=== PATIENT | male | born 1945 | race Two or more races ===

== ENCOUNTER 2019-02-11 04:10 | Emergency (ER) | payer OTHER ==
[~2019-02-11] VITALS: Ht 162.6 cm; Wt 78.0 kg
[2019-02-11 06:02] LABS: Basophils # (auto) 0.1 uL; Eosinophils # (auto) 0.2 uL; Eosinophils % (auto) 2.3 % (0.0-7.0); Hemoglobin 13.8 g/dL (13.5-17.5); Lymphocytes % (auto) 18.8 % (10.0-50.0); Mean Corpuscular Hemoglobin 31.5 pg (28.0-32.0); Mean Corpuscular Hgb Conc. 34.5 g/dL (32.0-36.0); Mean Corpuscular Volume 91.3 fL (80.0-100.0); Monocytes # (auto) 0.7 uL; Monocytes % (auto) 6.3 % (0.0-12.0); Neutrophils # (auto) 7.5 uL; Neutrophils % (auto) 71.6 % (37.0-80.0); Nucleated Red Blood Cells % 0.1 %; Platelet Count (auto) 272 10^3/uL (140-450); Red Blood Cells 4.38 10^6/uL (4.5-5.90); Red Cell Distribution Width 13.1 % (11.8-14.3); White Blood Cell 10.5 10^3/uL (4.4-10.8)
[2019-02-11 06:16] LABS: INR 0.95 (0.9-1.15); Partial Thromboplastin Time 28.1 sec (23.64-32.05)
[2019-02-11 08:17] LABS: BUN/Creatinine Ratio 22.4
[2019-02-11 08:18] LABS: Albumin 3.8 g/dL (3.4-5.0); Bilirubin, Total 0.9 mg/dL (0.2-1.0); Calcium 8.8 mg/dL (8.5-10.1); Total Protein 7.7 g/dL (6.4-8.2)
[2019-02-11 09:35] VITALS: BP 129/71
== END 2019-02-11 12:11 | disposition home or self-care (01) ==
LOC: ER 04:10
DX: R04.0 Epistaxis (principal); I25.10 Atherosclerotic heart disease of native coronary artery without angina pectoris; I25.2 Old myocardial infarction; I10 Essential (primary) hypertension
CPT/HCPCS: 36415; 80053; 85025; 85610; 85730

== ENCOUNTER 2022-09-20 08:00 | Emergency (ER) | payer OTHER ==
[~2022-09-20] VITALS: Ht 167.6 cm; Wt 77.2 kg
[2022-09-20 09:26] LABS: Basophils # (auto) 0 10 ^3/uL (0-0.2); Basophils % (auto) 0.2 % (0.0-2.0); Eosinophils # (auto) 0.7 10 ^3/uL (0-0.8); Eosinophils % (auto) 5.9 % (0.0-7.0); Hematocrit 42.7 % (41.0-53.0); Hemoglobin 14.4 g/dL (13.5-17.5); Lymphocytes # (auto) 2.2 10 ^3/uL (0.4-5.4); Lymphocytes % (auto) 18.8 % (10.0-50.0); Mean Corpuscular Hemoglobin 30.7 pg (28.0-32.0); Mean Corpuscular Hgb Conc. 33.6 g/dL (32.0-36.0); Mean Corpuscular Volume 91.1 fL (80.0-100.0); Monocytes # (auto) 0.8 10 ^3/uL (0-1.3); Monocytes % (auto) 7.2 % (0.0-12.0); Neutrophils % (auto) 67.9 % (37.0-80.0); Red Blood Cells 4.69 10^6/uL (4.5-5.90); Red Cell Distribution Width 13.9 % (11.8-14.3); White Blood Cell 11.8 10^3/uL (4.4-10.8)
[2022-09-20 09:36] LABS: INR 0.97 (0.9-1.15); Partial Thromboplastin Time 31.3 sec (24.6-33.4)
[2022-09-20] MEDS ORDERED: METOPROLOL SUCCINATE XL 50 MG TAB PO ONE (10:30)
[2022-09-20] MEDS ORDERED: cloNIDine HCL 0.1 MG TAB PO ONE (10:30)
[2022-09-20 11:17] VITALS: BP 135/71
== END 2022-09-20 11:32 | disposition home or self-care (01) ==
LOC: ER 08:00 → EDBD 08:00 → ER 11:32
DX: R04.0 Epistaxis (principal); I16.0 Hypertensive urgency; I10 Essential (primary) hypertension; D72.829 Elevated white blood cell count, unspecified; Z87.891 Personal history of nicotine dependence
CPT/HCPCS: 36415; 85025; 85610; 85730

== ENCOUNTER 2022-09-22 08:48 | Emergency (ER) | payer OTHER ==
[~2022-09-22] VITALS: Ht 162.6 cm; Wt 83.0 kg
[2022-09-22 11:01] VITALS: BP 150/88
== END 2022-09-22 12:43 | disposition home or self-care (01) ==
LOC: ER 08:48
DX: R04.0 Epistaxis (principal); I25.10 Atherosclerotic heart disease of native coronary artery without angina pectoris; J44.9 Chronic obstructive pulmonary disease, unspecified; I10 Essential (primary) hypertension; I25.2 Old myocardial infarction; Z98.61 Coronary angioplasty status; Z87.891 Personal history of nicotine dependence
CPT/HCPCS: 30901

== ENCOUNTER 2023-04-06 04:03 | Emergency (ER) | payer OTHER, MEDICAID ==
[~2023-04-06] VITALS: Ht 175.3 cm; Wt 81.0 kg
[2023-04-06 04:28] LABS: Basophils # (auto) 0.1 10 ^3/uL (0-0.2); Basophils % (auto) 0.7 % (0.0-2.0); Eosinophils # (auto) 0.1 10 ^3/uL (0-0.8); Eosinophils % (auto) 0.7 % (0.0-7.0); Hematocrit 50.3 % (41.0-53.0); Hemoglobin 16.6 g/dL (13.5-17.5); Lymphocytes % (auto) 18.4 % (10.0-50.0); Mean Corpuscular Hemoglobin 30.1 pg (28.0-32.0); Mean Corpuscular Hgb Conc. 32.9 g/dL (32.0-36.0); Mean Corpuscular Volume 91.4 fL (80.0-100.0); Monocytes # (auto) 0.9 10 ^3/uL (0-1.3); Monocytes % (auto) 8.2 % (0.0-12.0); Nucleated Red Blood Cells % 0.1 %; Red Cell Distribution Width 14.2 % (11.8-14.3); White Blood Cell 11.1 10^3/uL (4.4-10.8)
[2023-04-06 04:45] VITALS: PULSE 135; RESP 20; O2SAT 94
[2023-04-06 04:45] LABS: Albumin 4.4 g/dL (3.2-4.8); Alkaline Phosphatase 52 U/L (46-116); Anion Gap 7 (5-15); Aspartate Aminotransferase 38 U/L (13-40); BUN/Creatinine Ratio 11.2 (10.0-20.0); Bilirubin, Total 0.6 mg/dL (0.2-1.0); Blood Urea Nitrogen 14 mg/dL (9-23); Calcium 9.3 mg/dL (8.5-10.1); Carbon Dioxide 26 mmol/L (20-30); Chloride 104 mmol/L (98-107); Glucose 134 mg/dL (74-106); Sodium 137 mmol/L (136-145)
[2023-04-06 04:49] LABS: INR 1.01 (0.9-1.15); Partial Thromboplastin Time 30.2 SEC (24.5-34.5); Prothrombin Time 10.6 sec (9.3-11.8)
[2023-04-06 04:53] LABS: Alanine Aminotransferase 44 U/L (7-40)
[2023-04-06 05:07] LABS: Magnesium 2.1 mg/dL (1.6-2.6)
[2023-04-06] MEDS ORDERED: ASPirin-EC 325mg tab PO ONE (06:30)
[2023-04-06] MEDS ORDERED: DexAMETHasone SOD PHOS 10MG/1ML VIAL INJ IV ONE (06:30)
[2023-04-06 06:50] LABS: Base Excess -3.3 mmol/L (-2.0-2.0)
[2023-04-06 08:00] VITALS: PULSE 119; RESP 20; O2SAT 95
[2023-04-06 08:50] LABS: Rapid Influenza A Negative (Negative); Rapid Influenza B Negative (Negative)
[2023-04-06 08:51] LABS: COVID19 ANTIGEN SOFIA FIA NEGATIVE (NEGATIVE)
[2023-04-06] MEDS ORDERED: ALBUTEROL MEDNEB 2.5 mg/3ml NEB NEB SCH ×2 (09:45→12:00)
[2023-04-06 12:19] VITALS: BP 159/94; PULSE 105; RESP 25; TEMP 98.3; O2SAT 95
== END 2023-04-06 12:49 | disposition short-term general hospital (02) ==
LOC: ER 04:03 → EDBD 04:03 → ER 12:49
DX: J44.1 Chronic obstructive pulmonary disease with (acute) exacerbation (principal); R79.89 Other specified abnormal findings of blood chemistry; I21.4 Non-ST elevation (NSTEMI) myocardial infarction; I10 Essential (primary) hypertension; E78.5 Hyperlipidemia, unspecified; I25.2 Old myocardial infarction; Z87.891 Personal history of nicotine dependence; Z20.822 Contact with and (suspected) exposure to COVID-19
CPT/HCPCS: 36415; 36600; 71045; 80053; 82805; 83735; 83880; 84484; 85025; 85379; 85610; 85730; 87426; 87804; 93005; 96374; 99285; J1100

== ENCOUNTER 2023-06-15 23:07 | Emergency (ER) | payer OTHER, MEDICAID ==
[~2023-06-15] VITALS: Ht 175.3 cm; Wt 73.0 kg
[2023-06-16 01:25] LABS: Basophils # (auto) 0 10 ^3/uL (0-0.2); Basophils % (auto) 0.4 % (0.0-2.0); Eosinophils # (auto) 0.1 10 ^3/uL (0-0.8); Eosinophils % (auto) 0.4 % (0.0-7.0); Hematocrit 47.1 % (41.0-53.0); Hemoglobin 15.5 g/dL (13.5-17.5); Lymphocytes # (auto) 3.1 10 ^3/uL (0.4-5.4); Lymphocytes % (auto) 21.8 % (10.0-50.0); Mean Corpuscular Hemoglobin 30.8 pg (28.0-32.0); Mean Corpuscular Hgb Conc. 32.9 g/dL (32.0-36.0); Mean Corpuscular Volume 93.7 fL (80.0-100.0); Monocytes # (auto) 1.2 10 ^3/uL (0-1.3); Monocytes % (auto) 8.7 % (0.0-12.0); Neutrophils # (auto) 9.6 10 ^3/uL (1.6-8.6); Neutrophils % (auto) 68.7 % (37.0-80.0); Nucleated Red Blood Cells % 0.1 %; Red Blood Cells 5.03 10^6/uL (4.5-5.90); Red Cell Distribution Width 14.4 % (11.8-14.3)
[2023-06-16 01:32] LABS: Chloride 104 mmol/L (98-107); Potassium 4.2 mmol/L (3.5-5.1); Sodium 138 mmol/L (136-145)
[2023-06-16 01:33] LABS: Anion Gap 6 (5-15); Carbon Dioxide 28 mmol/L (20-30)
[2023-06-16 01:34] LABS: Calcium 9.9 mg/dL (8.7-10.4)
[2023-06-16 01:38] LABS: BUN/Creatinine Ratio 17.9 (10.0-20.0); Blood Urea Nitrogen 20 mg/dL (9-23); Glucose 108 mg/dL (74-106)
[2023-06-16] MEDS: LORazepam 0.5 MG TAB PO ONE (02:22)
[2023-06-16 02:46] LABS: Urine Bacteria NONE SEEN /hpf (None Seen); Urine Blood Negative /uL (Negative); Urine Clarity Clear (Clear); Urine Color Colorless (Yellow); Urine Protein, UAD TRACE (Negative); Urine Specific Gravity 1.008 (1.001-1.035); Urine Urobilinogen Normal (Negative); Urine WBC <1 /hpf (0 - 3); Urine pH 5.5 (5.0-8.0)
[2023-06-16] MEDS ORDERED: HYDR-3682 PO (03:02)
[2023-06-16 03:48] VITALS: BP 157/76; PULSE 76; RESP 18; TEMP 99.3; O2SAT 96
== END 2023-06-16 03:57 | disposition home or self-care (01) ==
LOC: ER 23:07 → EDBD 23:07 → ER 06-16 03:57
DX: I10 Essential (primary) hypertension (principal); F41.9 Anxiety disorder, unspecified; R07.89 Other chest pain; I25.10 Atherosclerotic heart disease of native coronary artery without angina pectoris; I25.2 Old myocardial infarction; J44.9 Chronic obstructive pulmonary disease, unspecified; Z87.891 Personal history of nicotine dependence; Z88.8 Allergy status to other drugs, medicaments and biological substances
CPT/HCPCS: 36415; 71045; 80048; 81001; 85025; 93005

== ENCOUNTER 2024-05-22 03:39 | Inpatient (IN) | payer OTHER ==
[2024-05-22] VITALS (71 sets, daily range): BP systolic 80–179; BP diastolic 43–91; PULSE 66–120; RESP 13–38; TEMP 97.7–100.1; O2SAT 74–100
[~2024-05-22] VITALS: Ht 160 cm; Wt 95.0 kg
[~2024-05-22 03:39] MED LIST: ATOR40TA52 PO; BUDE1AER6 IN; CARV12.544 PO; HYDR-3682 PO; IPRAAER6 IN; MONT-8 PO; PRED10TA PO; SACU1TAB PO; TAMS0.4C39 PO
[2024-05-22 03:53] LABS: Base Excess -3.7 mmol/L (-2.0-3.0)
[2024-05-22] MEDS: IPRATROPIUM BROM 0.5 MG/2.5ML INH SOL ONE ×3 (03:54→22:03)
[2024-05-22] MEDS: ALBUTEROL SULF 2.5 MG/0.5ML(0.5%) NEB SOLN ONE ×5 (03:54→22:03)
[2024-05-22] MEDS: ALBUTEROL SULF 2.5 MG/0.5ML(0.5%) NEB SOLN NEB ONE ×3 (03:57→15:45)
[2024-05-22] MEDS: IPRATROPIUM BROM 0.5 MG/2.5ML INH SOL NEB ONE (03:57)
[2024-05-22] MEDS: methylPREDNISolone SOD SUCC 125 MG/2 ML VL IV ONE (04:07)
--- NOTE | 2024-05-22 04:31 | ED.PDOC ---
SOB-HPI HPI Comments 79y M who presents to the ED via EMS for chief complaint of shortness of breath. Pt states he has been having shortness of breath since 7PM this evening and states he was having difficulty breathing and called EMS to the scene. EMS upon arrival, noted pt was hypoxic at 79% on room and pt was given breating treatment and placed on BIPAP and brought to the ED. Pt in the ED, states he is having associated chest tightness but otherwise denies diaphoresis, palpitations, fever, cough, chills, headache or dizziness. Pt noted to have increased work of breathing with otherwise has noted 02 sat of 97% with noted BP of 165/97. Pt otherwise denies any other symptoms at this time. Chief Complaint: Shortness of Breath Time Seen by MD: 04:27 Primary Care Provider: JOHNATHON Mode of Arrival: EMS Vital Signs Vital Signs Date Time Temp Pulse Resp B/P (MAP) Pulse Ox O2 Delivery O2 Flow Rate FiO2 05/22/24 05:26 111 40 116/57 05/22/24 04:00 98.3 97 98.3 05/22/24 04:00 Bi-Pap+ 60 60 Physical Exam General: Awake, alert and oriented. Skin: Skin in warm, dry and intact. Appropriate color for ethnicity. Nailbeds pink with no cyanosis. HEENT: The head is normocephalic and atraumatic. Conjunctivae are clear without exudates or hemorrhage. Sclera is non-icteric. EOM are intact. No signs of ny stagmus. Eyelids are normal in appearance without swelling or lesions. Oral mucosa is pink and moist Neck: The neck is supple with normal range of motion. No JVD. Cardiac: Heart rate and rhythm are normal. No murmurs, gallops, or rubs are auscultated. Respiratory: Patient is tachypneic, using accessory muscles. He is able to speak in short sentences. No audible wheezes or rhonchi. Abdominal: Abdomen is soft, non-tender without distention. Bowel sounds are present and normoactive in all four quadrants. Extremities: Upper and lower extremities are atraumatic in appearance without deformity or edema. Neurological: The patient is awake, alert and oriented to person, place, and time with normal speech. Speech is clear. There is no facial asymmetry. Psychiatric: Appropriate mood and affect. Good judgement and insight. No visual or auditory hallucinations. Review of Systems: Unable to obtain full ROS due to respiratory distress however patient denies chest pain, abdominal pain or headache. He does have chest tightness Past Medical History PAST MEDICAL HISTORY: CAD, COPD, HTN, [place] Surgical History: PTCA, Denies all surgeries Family History Family History: Reviewed,noncontributory to illness, Family hx of DM, Family hx of heart benjy, Family hx of HTN Social History Smoker: Quit Greater Than 1 Year, Cigarettes Alcohol: Occasionally Drugs: Denies Drug Use Lives In: Home Was a procedure done? Was a procedure done?: No Differential Dx Differential Diagnosis: CHF, COPD, Myocardial infarction, Pneumonia, Pulmonary Embolism, Respiratory Distress Comments acute respiratory failure, X-Ray, Labs, Meds, VS Vital Signs Date Time Temp Pulse Resp B/P (MAP) Pulse Ox O2 Delivery O2 Flow Rate FiO2 05/22/24 05:26 111 40 116/57 05/22/24 04:59 112 32 165/95 05/22/24 04:00 98.3 108 45 165/95 (118) 97 98.3 05/22/24 04:00 Bi-Pap+ 60 60 05/22/24 03:51 98.3 96 30 163/90 (114) 88 05/22/24 03:50 106 05/22/24 03:44 111 186/100 Facial BiPAP Mask 60 05/22/24 03:44 50 97 Bi-Pap+ 60 60 Lab Test 05/22/24 04:19 05/22/24 03:47 Range/Units White Blood Count 15.2 H 4.4-10.8 10^3/uL Red Blood Count 5.06 4.5-5.90 10^6/uL Hemoglobin 15.6 13.5-17.5 g/dL Hematocrit 46.3 41.0-53.0 % Mean Corpuscular Volume 91.6 80.0-100.0 fL Mean Corpuscular Hemoglobin 30.8 28.0-32.0 pg Mean Corpuscular Hemoglobin Concent 33.7 32.0-36.0 g/dL Red Cell Distribution Width 13.3 11.8-14.3 % Platelet Count 209 140-450 10^3/uL Mean Platelet Volume 8.2 6.9-10.8 fL Neutrophils (%) (Auto) 85.2 H 37.0-80.0 % Lymphocytes (%) (Auto) 11.4 10.0-50.0 % Monocytes (%) (Auto) 3.2 0.0-12.0 % Eosinophils (%) (Auto) 0.0 0.0-7.0 % Basophils (%) (Auto) 0.2 0.0-2.0 % Neutrophils # (Auto) 12.9 H 1.6-8.6 10 ^3/uL Lymphocytes # (Auto) 1.7 0.4-5.4 10 ^3/uL Monocytes # (Auto) 0.5 0-1.3 10 ^3/uL Eosinophils # (Auto) 0 0-0.8 10 ^3/uL Basophils # (Auto) 0 0-0.2 10 ^3/uL Nucleated Red Blood Cells 0.0 % D-Dimer, Quantitative 0.79 H 0.0-0.49 mg/L FEU Sodium Level 140 136-145 mmol/L Potassium Level 4.4 3.5-5.1 mmol/L Chloride Level 106 98-107 mmol/L Carbon Dioxide Level 27 20-31 mmol/L Anion Gap 7 5-15 Blood Urea Nitrogen 15 9-23 mg/dL Creatinine 1.06 0.700-1.30 mg/dL Glomerular Filtration Rate Calc 71 >90 mL/min BUN/Creatinine Ratio 14.2 10.0-20.0 Serum Glucose 138 H 74-106 mg/dL Calcium Level 9.2 8.7-10.4 mg/dL Magnesium Level 2.2 1.6-2.6 mg/dL Total Bilirubin 2.0 H 0.2-1.0 mg/dL Aspartate Amino Transferase (AST) 18 13-40 U/L Alanine Aminotransferase (ALT) 21 7-40 U/L Alkaline Phosphatase 56 46-116 U/L Troponin I High Sensitivity 24 </=54 ng/L B-Type Natriuretic Peptide 326.61 0-100 pg/mL Total Protein 6.5 5.7-8.2 g/dL Albumin 4.1 3.2-4.8 g/dL Blood Gas Specimen Type Arterial Blood Gas Sample Site Right radial Blood Gas Patient Temperature 37.0 Arterial Blood Date Drawn [id number] Arterial Blood pH 7.241 *L 7.350-7.450 Arterial Blood Partial Pressure CO2 59.3 H 35.0-48.0 mmHg Arterial Blood Partial Pressure O2 127.6 H 83.0-108.0 mmHg Arterial Blood HCO3 24.9 21.0-28.0 mmol/L Arterial Blood Oxygen Saturation 98.2 H 94.0-98.0 % Arterial Blood Base Excess -3.7 L -2.0-3.0 mmol/L Arterial Blood Oxyhemoglobin 97.0 94.0-98.0 % Arterial Blood Carboxyhemoglobin 0.6 0.5-1.5 % Arterial Blood Methemoglobin 0.6 0.0-1.5 % Jun Test Yes Blood Gas Total Hemoglobin 16.40 13.5-17.5 g/dL Blood Gas Set Respiration Rate 14.0 Blood Gas Modality Mask - bipap Blood Gas Spontaneous Rate 50 FiO2 % 100.0 Blood Gas EPAP 8 Blood Gas IPAP 18 Blood Gas Critical Value Read Back Yes Blood Gas Notified Whom Md. cheo gonsales Blood Gas Notified Time [id number] Blood Gas Notified By Rt shana colbert Current Medications Medications (Trade) Dose Ordered Sig/Mindy Route Start Time Stop Time Status Last Admin Methylprednisolone Sodium Succinate (Solu Medrol) 80 mg ONCE ONCE IV 05/22/24 04:00 05/22/24 04:01 DC 05/22/24 04:07 Ondansetron HCl (Zofran) 4 mg ONCE ONCE IV 05/22/24 04:45 05/22/24 04:46 DC 05/22/24 04:47 Azithromycin 250 ml @ 125 mls/hr ONCE ONCE IV 05/22/24 05:00 05/22/24 06:59 05/22/24 05:16 Ceftriaxone Sodium 50 ml @ 100 mls/hr ONCE ONCE IV 05/22/24 05:00 05/22/24 05:29 DC 05/22/24 05:15 Morphine Sulfate 2 mg ONCE ONCE IV 05/22/24 05:00 05/22/24 05:01 DC 05/22/24 04:59 Time of 1ST Reevaluation: 05:00 Reevaluation 1ST: Unchanged Patient Education/Counseling: Diagnosis, Treatment Family Education/Counseling: No Family Present Departure 1 Departure Time of Disposition: 04:51 Impression: Primary Impression: COPD exacerbation Additional Impression: Hypoxic respiratory failure Disposition: ADMITTED INPATIENT Condition: Stable Comments 79-year-old male with history of COPD presented to the emergency department in respiratory distress via EMS. Patient was on CPAP on arrival, he was transferred over to [facility] immediately upon arrival. He received DuoNeb, Solu- Medrol, morphine. His oxygen saturation is maintaining within normal limits however he continues to be tachypneic and using accessory muscles for breathing. Chest x-ray shows no acute disease. EKG shows significant baseline wander, pending repeat. D-dimer is positive. Patient admitted for further treatment, evaluation and monitoring. Pending CT angiogram to rule out pulmonary embolism. Critical Care Note Critical Care Time?: No Stability Stability form required: No Heart Score Heart Score: Heart Score Response (Comments) Value History Slightly Suspicious 0 EKG N/A 0 Age >65 2 Risk Factors 1 or 2 risk factors 1 Troponin Normal limit 0 Total 3 I personally scribed for LISA GONSALES MD ([email or web address]) on 05/22/24 at 04:31. Electronically submitted by Efrain Sarmiento ([facility]). LISA GONSALES MD May 22, 2024 04:31
[2024-05-22 04:39] LABS: Basophils # (auto) 0 10 ^3/uL (0-0.2); Basophils % (auto) 0.2 % (0.0-2.0); Eosinophils # (auto) 0 10 ^3/uL (0-0.8); Hematocrit 46.3 % (41.0-53.0); Hemoglobin 15.6 g/dL (13.5-17.5); Lymphocytes # (auto) 1.7 10 ^3/uL (0.4-5.4); Lymphocytes % (auto) 11.4 % (10.0-50.0); Mean Corpuscular Hemoglobin 30.8 pg (28.0-32.0); Mean Corpuscular Hgb Conc. 33.7 g/dL (32.0-36.0); Mean Corpuscular Volume 91.6 fL (80.0-100.0); Monocytes # (auto) 0.5 10 ^3/uL (0-1.3); Monocytes % (auto) 3.2 % (0.0-12.0); Neutrophils # (auto) 12.9 10 ^3/uL (1.6-8.6); Neutrophils % (auto) 85.2 % (37.0-80.0); Platelet Count (auto) 209 10^3/uL (140-450); Red Blood Cells 5.06 10^6/uL (4.5-5.90); Red Cell Distribution Width 13.3 % (11.8-14.3); White Blood Cell 15.2 10^3/uL (4.4-10.8)
[2024-05-22] MEDS ORDERED: MORPHINE SULFATE INJ 2 MG/ml SYRG IM ONE (04:45)
[2024-05-22] MEDS: ONDANSETRON HCL 4 MG/2 ML VIAL IV ONE (04:47)
[2024-05-22 04:54] LABS: Alanine Aminotransferase 21 U/L (7-40); Albumin 4.1 g/dL (3.2-4.8); Alkaline Phosphatase 56 U/L (46-116); Anion Gap 7 (5-15); Aspartate Aminotransferase 18 U/L (13-40); BUN/Creatinine Ratio 14.2 (10.0-20.0); Blood Urea Nitrogen 15 mg/dL (9-23); Calcium 9.2 mg/dL (8.7-10.4); Carbon Dioxide 27 mmol/L (20-31); Chloride 106 mmol/L (98-107); Magnesium 2.2 mg/dL (1.6-2.6); Potassium 4.4 mmol/L (3.5-5.1); Sodium 140 mmol/L (136-145)
[2024-05-22 04:55] LABS: Glucose 138 mg/dL (74-106); Total Protein 6.5 g/dL (5.7-8.2)
[2024-05-22] MEDS: MORPHINE SULFATE INJ 2 MG/ml SYRG IV ONE (04:59)
[2024-05-22] MEDS: cefTRIAXone 1GM/50ML D5W 50 ML IV ONE ×2 (05:15→11:30)
[2024-05-22] MEDS: AZITHROMYCIN 500MG/ 250ML 250 ML IV ONE ×2 (05:16→11:30)
--- NOTE | 2024-05-22 05:35 | DVH ---
CHEST RADIOGRAPH Indication: sob Technique: Single frontal view of the chest was obtained Comparison: XY CHEST XRAY 1 VIEW on DOS: 06/16/23, XY CHEST PORTABLE on DOS: 04/06/23 FINDINGS: Lines and Tubes: None Lungs: No focal consolidation. Pleura: No effusion. No pneumothorax. Cardiomediastinal contours: Unremarkable Bones: No acute osseous abnormality. IMPRESSION: 1. No acute cardiopulmonary disease.
[2024-05-22 06:11] LABS: Urine Bacteria None Seen /hpf (None Seen)
[2024-05-22 06:38] LABS: Urine Blood 1+ /uL (Negative); Urine Clarity Clear (Clear); Urine Color Light-Yellow (Yellow); Urine Protein, UAD TRACE (Negative); Urine Specific Gravity 1.011 (1.001-1.035); Urine Squamous Epithelial Cell None Seen /hpf (<5); Urine Urobilinogen Normal (Negative); Urine WBC 1 /hpf (0 - 3); Urine pH 5.5 (5.0-9.0)
[2024-05-22] MEDS: LORazepam 2MG/ML-1ML VIAL IV ONE ×2 (06:45→07:55)
[2024-05-22 07:04] LABS: COVID19 ANTIGEN SOFIA FIA NEGATIVE (NEGATIVE); Rapid Influenza A Negative (Negative); Rapid Influenza B Negative (Negative)
[2024-05-22] MEDS: IOHEXOL 350 MG/ML 100ML IJ ONE (07:11)
[2024-05-22] MEDS ORDERED: ACETAMINOPHEN 325 MG TAB PO PRN (08:30)
[2024-05-22] MEDS ORDERED: MORPHINE SULFATE 4 MG/ML SYR/VIAL IV PRN ×2 (08:30→09:00)
[2024-05-22] MEDS ORDERED: NITROGLYCERIN 0.4 MG SL TAB SL PRN ×4 (08:30→09:00)
[2024-05-22] MEDS ORDERED: MORPHINE SULFATE INJ 2 MG/ml SYRG IV PRN (08:30)
[2024-05-22 08:31] LABS: Base Excess -4.4 mmol/L (-2.0-3.0)
[2024-05-22] MEDS: NOREPINEPHRINE 8 MG/250ML KIT 250 ML IV SCH (09:00)
[2024-05-22] MEDS: MIDAZOLAM DRIP 50 mg/50mL 50 ML IV SCH ×2 (09:00→09:15)
--- NOTE | 2024-05-22 09:09 | DVHHP2 ---
History of Present Illness Reason for Visit: SOB History of Present Illness Marlon Gomes is a 79-year-old male with past medical history of hypertension, COPD, asthma, CAD, NH status post PTCA. Patient's daughter reports that the stent was placed in [place] over 5 years ago. Patient's daughter also reports that around 3:00 a.m. her father woke her up became short of breath felt some chest tightness and she gave him an inhaler with no relief, she checked her oxygen saturation was 91% on room air then she called EMS. Patient's daughter reports that he has annual COPD exacerbations, he was a heavy smoker and quit recently. Patient denies chest pain, nausea and vomiting at this time. Patient's daughter does report that recently he was sick with a cold and got better. Cardiovascular: CAD, HTN, [place] Pulmonary: Asthma, COPD Past Surgical History: Other (PTCA) Family History: None Smoke: Quit ALCOHOL: occassional Lives: with Family Domestic Violence: Neg Review of Systems Constitutional: No: Fever, Chills, Sweats, Weakness, Malaise, Other Eyes: No: Pain, Vision change, Conjunctivae inflammation, Eyelid inflammation, Other, Redness ENT: No: Ear pain, Ear discharge, Nose pain, Nose discharge, Nose congestion, Mouth pain, Mouth swelling, Throat pain, Throat swelling, Other Respiratory: Shortness of breath; No: Cough, Dry, SOB with excertion, Wheezing, Hemoptysis, Pleuritic Pain, Sputum, Wheezing, Other Cardiovascular: Other (Chest tightness); No: Chest Pain, Palpitations, Orthopnea, Paroxysmal Noc. Dyspnea, Edema, Lt Headedness Gastrointestinal: No: Nausea, Vomiting, Abdominal Pain, Diarrhea, Constipation, Melena, Hematochezia, Other Genitourinary: No Dysuria, No Frequency, No Incontinence, No Hematuria, No Retention, No Other Musculoskeletal: No: other, neck pain, shoulder pain, arm pain, back pain, hand pain, leg pain, foot pain Skin: No: Rash, Lesions, Jaundice, Bruising, Other Neurological: No: Weakness, Numbness, Incoordination, Change in speech, Confusion, Seizures, Other Allergies: Coded Allergies: Clopidogrel (Verified Allergy, Unknown, 02/11/19) Medications Current Medications Medications Dose Ordered Sig/Mindy Route Start Time Stop Time Status Last Admin Dose Admin Midazolam HCl 50 ml @ 1 mls/hr Q24H IV 05/22/24 08:45 UNV Norepinephrine Bitartrate 250 ml @ 3.75 mls/hr Q24H IV 05/22/24 09:00 UNV Exam Vital Signs Vital Signs Date Time Temp Pulse Resp B/P (MAP) Pulse Ox O2 Delivery O2 Flow Rate FiO2 05/22/24 08:16 95 102/50 97 Facial BiPAP Mask 60 05/22/24 07:56 40 05/22/24 07:47 0 05/22/24 04:00 98.3 98.3 General Appearance: Alert, Cooperative, moderate distress Cardiovascular: Normal S1, Normal S2, No murmurs Abdominal: Soft Extremities: No clubbing, No cyanosis, Normal pulses Skin: No rashes, No breakdown, No significant lesion Neuro: Normal tone, Sensation intact Labs/Xrays Labs Test 05/22/24 08:20 05/22/24 06:18 05/22/24 05:50 05/22/24 05:01 Range/Units Blood Gas Specimen Type Arterial Blood Gas Sample Site Right radial Blood Gas Patient Temperature 37.0 Arterial Blood Date Drawn [id number] Arterial Blood pH 7.231 *L 7.350-7.450 Arterial Blood Partial Pressure CO2 59.0 H 35.0-48.0 mmHg Arterial Blood Partial Pressure O2 147.6 H 83.0-108.0 mmHg Arterial Blood HCO3 24.2 21.0-28.0 mmol/L Arterial Blood Oxygen Saturation 98.8 H 94.0-98.0 % Arterial Blood Base Excess -4.4 L -2.0-3.0 mmol/L Arterial Blood Oxyhemoglobin 97.7 94.0-98.0 % Arterial Blood Carboxyhemoglobin 0.6 0.5-1.5 % Arterial Blood Methemoglobin 0.5 0.0-1.5 % Jun Test Yes Blood Gas Total Hemoglobin 15.30 13.5-17.5 g/dL Blood Gas Set Respiration Rate 12.0 Blood Gas Modality Mask - bipap Blood Gas Spontaneous Rate 32 FiO2 % 60.0 Blood Gas Spontaneous Tidal Volume 450 Blood Gas EPAP 8 Blood Gas IPAP 18 Blood Gas Critical Value Read Back Yes Blood Gas Notified Whom jareth Steen md Blood Gas Notified Time [id number] Blood Gas Notified By Nasir henry rrt Troponin I High Sensitivity 50 </=54 ng/L Influenza Type A Antigen Negative Negative Influenza Type B Antigen Negative Negative SARS-CoV-2 Antigen (Rapid) Negative NEGATIVE Urine Color Light-yellow Yellow Urine Clarity Clear Clear Urine pH 5.5 5.0-9.0 Urine Specific [place] Range 1.011 1.001-1.035 Urine Protein Trace H Negative Urine Ketones Negative Negative Urine Blood 1+ H Negative /uL Urine Nitrite Negative Negative Urine Bilirubin Negative Negative Urine Urobilinogen Normal Negative mg/dL Urine Leukocyte Esterase Negative Negative /uL Urine RBC 2 0 - 3 /hpf Urine WBC 1 0 - 3 /hpf Urine Squamous Epithelial Cells None seen <5 /hpf Urine Bacteria None seen None Seen /hpf Urine Glucose Normal Normal mg/dL Test 05/22/24 04:19 Range/Units White Blood Count 15.2 H 4.4-10.8 10^3/uL Red Blood Count 5.06 4.5-5.90 10^6/uL Hemoglobin 15.6 13.5-17.5 g/dL Hematocrit 46.3 41.0-53.0 % Mean Corpuscular Volume 91.6 80.0-100.0 fL Mean Corpuscular Hemoglobin 30.8 28.0-32.0 pg Mean Corpuscular Hemoglobin Concent 33.7 32.0-36.0 g/dL Red Cell Distribution Width 13.3 11.8-14.3 % Platelet Count 209 140-450 10^3/uL Mean Platelet Volume 8.2 6.9-10.8 fL Neutrophils (%) (Auto) 85.2 H 37.0-80.0 % Lymphocytes (%) (Auto) 11.4 10.0-50.0 % Monocytes (%) (Auto) 3.2 0.0-12.0 % Eosinophils (%) (Auto) 0.0 0.0-7.0 % Basophils (%) (Auto) 0.2 0.0-2.0 % Neutrophils # (Auto) 12.9 H 1.6-8.6 10 ^3/uL Lymphocytes # (Auto) 1.7 0.4-5.4 10 ^3/uL Monocytes # (Auto) 0.5 0-1.3 10 ^3/uL Eosinophils # (Auto) 0 0-0.8 10 ^3/uL Basophils # (Auto) 0 0-0.2 10 ^3/uL Nucleated Red Blood Cells 0.0 % D-Dimer, Quantitative 0.79 H 0.0-0.49 mg/L FEU Sodium Level 140 136-145 mmol/L Potassium Level 4.4 3.5-5.1 mmol/L Chloride Level 106 98-107 mmol/L Carbon Dioxide Level 27 20-31 mmol/L Anion Gap 7 5-15 Blood Urea Nitrogen 15 9-23 mg/dL Creatinine 1.06 0.700-1.30 mg/dL Glomerular Filtration Rate Calc 71 >90 mL/min BUN/Creatinine Ratio 14.2 10.0-20.0 Serum Glucose 138 H 74-106 mg/dL Calcium Level 9.2 8.7-10.4 mg/dL Magnesium Level 2.2 1.6-2.6 mg/dL Total Bilirubin 2.0 H 0.2-1.0 mg/dL Aspartate Amino Transferase (AST) 18 13-40 U/L Alanine Aminotransferase (ALT) 21 7-40 U/L Alkaline Phosphatase 56 46-116 U/L B-Type Natriuretic Peptide 326.61 0-100 pg/mL Total Protein 6.5 5.7-8.2 g/dL Albumin 4.1 3.2-4.8 g/dL CHEST RADIOGRAPH Indication: sob Technique: Single frontal view of the chest was obtained Comparison: XY CHEST XRAY 1 VIEW on DOS: 06/16/23, XY CHEST PORTABLE on DOS: 04/06/23 FINDINGS: Lines and Tubes: None Lungs: No focal consolidation. Pleura: No effusion. No pneumothorax. Cardiomediastinal contours: Unremarkable Bones: No acute osseous abnormality. IMPRESSION: 1. No acute cardiopulmonary disease. Assessment/Plan Assessment/Plan Assessment/Plan: Acute hypoxic respiratory failure secondary to Acute on chronic COPD exacerbation Leukocytosis Respiratory acidosis Patient now intubated and on vent in ED EKG Flu negative COVID negative UA Pain management Antiemetics Respiratory treatments ABG IV antibiotics-ceftriaxone and azithromycin IV steroids Troponin's CTA chest Mag level Chest x-ray Chest x-ray a.m. EKG in a.m. D-dimer elevated BNP Echo ordered Lovenox Cardiology consult - troponin's increasing Labs A.m. labs IV sedation History of CAD History of NH status post PTCA Consider cardiology consult Chronic hypertension Continue home meds Ex tobacco use Monitor FEN/PPX NPO Ivf DVT ppx lovenox PUD ppx not indicated no hx of GERD Discussed plan of care with patient, daughter, and nurse Home medications reconciled Admit to ICU Plan discussed with: Patient, Daughter Date of Service: May 22, 2024 Billing Provider: LOUANN TRUJILLO Common Visit Codes: [id number] INP/OBS CARE (HIGH) LOUANN TRUJILLO May 22, 2024 09:09
[2024-05-22] MEDS: ROCURONIUM 10MG/ML 10ML VIAL IV ONE ×2 (09:11→09:14)
[2024-05-22] MEDS: ETOMIDATE (2MG/ML) 20ML VIAL IV ONE ×2 (09:11→09:13)
[2024-05-22] MEDS: MIDAZOLAM DRIP 50 mg/50mL 50 ML IV ONE ×4 (09:12→21:34)
--- NOTE | 2024-05-22 09:36 | ECG ---
[facility] Test Date: 2024-05-22 Test Time: 03:50:45 Pat Name: PHYLICIA POST Department: ED Room: 0262 Gender: M Box Puller: MARISELA : 1945 Requested By: LISA GONSALES Order Number: [id number] Reading MD: Liang Farrell Measurements Intervals [place] Rate: 106 P: 66 [place]: 154 QRS: 51 QRSD: 100 T: 212 QT: 323 QTc: 429 Interpretive Statements Sinus tachycardia Abnormal R-wave progression, early transition Repol abnrm, severe global ischemia (LM/MVD) Electronically Signed On 05-27-2024 15:12:40 PST by Liang Farrell Please click the below link to view image of tracing.
--- NOTE | 2024-05-22 09:52 | DVH ---
CHEST RADIOGRAPH Indication: s/p intubation Technique: Single frontal view of the chest was obtained Comparison: XY CHEST PORTABLE on DOS: 05/22/24, XY CHEST XRAY 1 VIEW on DOS: 06/16/23, XY CHEST PORTABLE on DOS: 04/06/23, XY CHEST PORTABLE on DOS: 05/22/24 FINDINGS: Lines and Tubes: Endotracheal tube 2 cm from the karoline. Nasogastric tube tip in the stomach. Lungs: No focal consolidation. Pleura: No effusion. No pneumothorax. Cardiomediastinal contours: Unremarkable Bones: No acute osseous abnormality. IMPRESSION: 1. No acute cardiopulmonary disease.
[2024-05-22] MEDS ORDERED: ENOXAPARIN SOD 30 MG/0.3 ML SYRINGE SC SCH (10:00)
[2024-05-22 10:14] LABS: Base Excess -1.6 mmol/L (-2.0-3.0)
--- NOTE | 2024-05-22 10:53 | DVH ---
CHEST RADIOGRAPH Indication: CENTRAL LINE PLACEMENT Technique: Single frontal view of the chest was obtained COMPARISON: XY CHEST PORTABLE on DOS: 05/22/24, XY CHEST PORTABLE on DOS: 05/22/24, XY CHEST XRAY 1 VIE W on DOS: 06/16/23, XY CHEST PORTABLE on DOS: 04/06/23 FINDINGS: Lines and Tubes: Endotracheal tube and enteric catheter and right central venous catheter in satisfac tory position. Lungs: Pulmonary vascular congestion Pleura: No effusion. No pneumothorax. Cardiomediastinal contours: Unremarkable Bones: Unremarkable IMPRESSION: Lines and tubes in satisfactory position. No significant interval change.
[2024-05-22] MEDS: SODIUM CHLORIDE 0.9% 1,000 ML IV SCH (11:27)
[2024-05-22] MEDS: cefTRIAXone 1GM/50ML D5W 50 ML IV SCH (11:27)
[2024-05-22] MEDS: AZITHROMYCIN 500MG/ 250ML 250 ML IV SCH (11:28)
[2024-05-22] MEDS: IPRATROPIUM BROM 0.5 MG/2.5ML INH SOL NEB SCH (11:29)
[2024-05-22] MEDS: ENOXAPARIN SOD 30 MG/0.3 ML SYRINGE SC SCH (11:29)
[2024-05-22] MEDS: cefTRIAXone SOD 1,000 MG VL ONE (11:30)
[2024-05-22] MEDS: ALBUTEROL SULF 2.5 MG/0.5ML(0.5%) NEB SOLN NEB SCH (11:30)
[2024-05-22 11:54] LABS: Base Excess -2.5 mmol/L (-2.0-3.0)
[2024-05-22] MEDS: NOREPINEPHRINE 8 MG/250ML KIT 250 ML IV ONE (12:45)
--- NOTE | 2024-05-22 13:51 | DVHNC2 ---
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) Indication: Hypotension, Volume resuscitation Room prepared for procedure: Yes [employer] performed hand hygien: Yes Maximal sterile barrier precau: Mask/Eye shield, Sterile gown, Cap, Sterlie gloves, Large sterlie drape Skin Preparation: Chlorhexidine gluconate Skin preparation completely dr: Yes Insertion site: Left, Internal jugular Central line catheter type: [id number] dialysis Number of lumens: 3 Central line exchanged over a: No Antiseptic ointment applied to: Yes Post Assessment: Chest X-Ray, No Pneumothorax Informed consent obtained: Yes Risks/benefits/alt described: Yes Date of Service: May 22, 2024 Billing Provider: JOSE JUAN ENCISO MD Common Visit Codes: PROCEDURE ONLY Procedure Codes: [id number] NON-TUNNEL CV CATH ZACHARIAH JUDGE RESIDENT May 22, 2024 13:51
[2024-05-22 13:59] LABS: Base Excess -1.4 mmol/L (-2.0-3.0)
[2024-05-22] MEDS: PROPOFOL 100 ML IV SCH (14:06)
[2024-05-22] MEDS: PROPOFOL 100 ML IV ONE (14:08)
[2024-05-22] MEDS: methylPREDNISolone SOD SUCC 40 MG/ML VL IV SCH (14:35)
[2024-05-22] MEDS: fentaNYL Drip 2500mCg/250mlNS 250 ML IV SCH (14:52)
[2024-05-22] MEDS: methylPREDNISolone SOD SUCC 40 MG/ML VL ONE ×2 (14:55→21:19)
[2024-05-22] MEDS: fentaNYL Drip 2500mCg/250mlNS 250 ML IV ONE (14:55)
[2024-05-22] MEDS: PHENYLEPHRINE IV 250 ML IV SCH (15:45)
[2024-05-22] MEDS: MAGNESIUM SULFATE 1GM/100ML 100 ML IV ONE (16:06)
--- NOTE | 2024-05-22 16:28 | DVHINCON2 ---
Date Seen: May 22, 2024 Referring Physician RAFA Thurman Reason for Consultation Troponin increasing History of Present Illness This is a 79-year-old male patient who presents to the emergency room with chief complaint of worsening shortness of breath. At the time of assessment, the patient was chemically sedated and mechanically ventilated. Spoke with patient's family members who are at bedside regarding what happened prior to admission. Per patient's daughter, the patient began experiencing flu-like symptoms approximately two days ago including cough, production of phlegm, and generalized weakness. On the day of admission, the patient's daughter reports that the patient told his family members that he felt extremely short of breath and as though he can not catch a full breath. EMS was called and brought the patient to the emergency room for further evaluation. While in the emergency room, the patient was urgently intubated for airway protection. Cardiology has now been consulted for increasing troponin levels. Initial twelve lead electro cardiogram reveals sinus tachycardia (with baseline wander, appearing like ST segment depression to multiple leads). A repeat twelve lead electrocardiogram reveals sinus tachycardia with slight ST segment depression to lateral leads. Initial troponin level of 24ng/L with peak level at 73ng/L. Significant past medical history includes coronary artery disease status post multiple PTCA's x3 CORDELIA (on ASA), history myocardial infarction, hypertension, dyslipidemia, COPD, sleep apnea, and morbid obesity. 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 Past Medical History Past medical history reviewed. No other significant than mentioned above. Past Surgical History Denies Family History Family history reviewed. Social History Patient has a 58 pack-year history, quit smoking approximately eight years ago per family Patient's family did not use any illicit drug use on patient's behalf Patient's family denies any alcohol use on patient's behalf Allergies: Coded Allergies: Clopidogrel (Verified Allergy, Unknown, 02/11/19) Home Meds Active Scripts Hydroxyzine Hcl (Hydroxyzine Hcl) 25 Mg Tab, 1 TAB PO BID PRN, #30 TAB Prov:ELMA DO 06/16/23 Reported Medications Sacubitril-Valsartan (Entresto 24-26 mg) 1 Tab Tab, 1 TAB PO BID 05/22/24 Tamsulosin Hcl (Tamsulosin Hcl) 0.4 Mg Cap, 1 CAP PO DAILY 05/22/24 Atorvastatin Calcium (ATORVASTATIN CALCIUM) 40 Mg Tab, 1 TAB PO DAILY 05/22/24 Carvedilol (Carvedilol) 12.5 Mg Tab, 1 TAB PO BID 05/22/24 Home Meds Home medications reviewed. Current Medications Current Medications Medications (Trade) Dose Ordered Sig/Mindy Route PRN Reason Start Time Stop Time Status Last Admin Midazolam HCl 50 ml @ 1 mls/hr Q24H IV 05/22/24 08:45 05/22/24 15:08 Norepinephrine Bitartrate 250 ml @ 3.75 mls/hr Q24H IV 05/22/24 09:00 05/22/24 12:44 Ceftriaxone Sodium 50 ml @ 100 mls/hr DAILY@09 IV 05/22/24 09:00 05/22/24 11:27 Azithromycin 250 ml @ 125 mls/hr DAILY IV 05/22/24 10:00 05/22/24 11:28 Methylprednisolone Sodium Succinate (Solu Medrol) 40 mg Q8HR IV 05/22/24 14:00 05/22/24 14:35 Albuterol (Ventolin Medneb) 2.5 mg Q4HR NEB 05/22/24 10:00 05/22/24 14:00 Ipratropium [place] (Atrovent Medneb) 0.5 mg Q4HR NEB 05/22/24 10:00 05/22/24 14:00 Sodium Chloride 1,000 ml @ 75 mls/hr [id number] IV 05/22/24 08:30 05/22/24 11:27 Morphine Sulfate 2 mg Q30MP PRN IV FOR CHEST PAIN 05/22/24 08:30 05/22/24 09:11 DC Acetaminophen (Tylenol Tablet) 650 mg Q6HP PRN PO MILD PAIN (1-3 PAIN SCALE) 05/22/24 08:30 05/22/24 09:11 DC Nitroglycerin (Ntrostat Sublingual) 0.4 mg Q5MINP PRN SL FOR CHEST PAIN 05/22/24 08:30 05/22/24 09:11 DC Nitroglycerin (Ntrostat Sublingual) 0.4 mg Q5MINP PRN SL FOR CHEST PAIN 05/22/24 08:30 05/22/24 09:11 DC Morphine Sulfate 2 mg Q30M PRN IV FOR CHEST PAIN 05/22/24 08:30 05/22/24 09:11 DC Enoxaparin Sodium (Lovenox) 30 mg DAILY SC 05/22/24 10:00 05/22/24 09:11 DC Midazolam HCl 50 ml @ 1 mls/hr Q24H IV 05/22/24 09:15 05/22/24 12:56 DC Morphine Sulfate 2 mg Q30MP PRN IV FOR CHEST PAIN 05/22/24 09:00 UNV Morphine Sulfate 2 mg Q30M PRN IV FOR CHEST PAIN 05/22/24 09:30 Enoxaparin Sodium (Lovenox) 30 mg DAILY SC 05/22/24 10:00 05/22/24 11:29 Acetaminophen (Tylenol Tablet) 650 mg Q6HP PRN PO MILD PAIN (1-3 PAIN SCALE) 05/22/24 09:00 Nitroglycerin (Ntrostat Sublingual) 0.4 mg Q5MINP PRN SL FOR CHEST PAIN 05/22/24 09:00 UNV Nitroglycerin (Ntrostat Sublingual) 0.4 mg Q5MINP PRN SL FOR CHEST PAIN 05/22/24 09:00 Propofol 100 ml @ 3.06 mls/hr Q24H IV 05/22/24 13:45 05/22/24 14:06 Fentanyl Citrate 250 ml @ 2.5 mls/hr Q24H IV 05/22/24 14:45 05/22/24 14:52 Phenylephrine HCl 250 ml @ 30 mls/hr Q8H20M IV 05/22/24 15:45 Review of Systems Constitutional: No symptom reported Ears, Nose, & Throat: No symptom reported Eyes: No symptom reported Neurological: No symptoms reported Pulmonary/Respiratory: Shortness of breath Cardiovascular: No symptom reported Gastrointestinal: No symptom reported Genitourinary: No symptom reported Musculoskeletal: No symptom reported Skin: No symptom reported Psychiatric: No symptom reported Endocrine: No symptom reported Hematologic/Lymphatic: No symptom reported Vital Signs Vital Signs Date Time Temp Pulse Resp B/P (MAP) Pulse Ox O2 Delivery O2 Flow Rate FiO2 05/22/24 15:16 99/53 05/22/24 15:15 69 14 98 05/22/24 13:45 50 05/22/24 12:01 100.1 100.1 05/22/24 12:00 Mechanical Ventilator+ 05/22/24 07:47 0 Physical Exam General Appearance: Restless , obese Pulmonary/Respiratory: Coarse throughout Cardiovascular/Chest: Regular rate and rhythm. Peripheral Pulses: 2+ Radial (R). 2+ Radial (L). 2+ Pedal (R). 2+ Pedal (L) Abdominal Exam: Normal bowel sounds. Ankle Exam: Negative ankle edema Lower extremities: Negative lower extremity edema Neuro/Mental Status: Chemically sedated Thoughts/Psych: Deferred Appearance: No acute distress. Skin Exam: Normal inspection. Normal color. Warm and dry. Labs/Diagnostic Data Labs Test 05/22/24 14:50 05/22/24 13:50 05/22/24 11:40 05/22/24 08:20 Range/Units Lactic Acid Level 1.4 0.4-2.0 mmol/L Blood Gas Specimen Type Arterial Blood Gas Sample Site Right radial Blood Gas Patient Temperature 37.0 Arterial Blood Date Drawn [id number] Arterial Blood pH 7.318 L 7.350-7.450 Arterial Blood Partial Pressure CO2 50.7 H 35.0-48.0 mmHg Arterial Blood Partial Pressure O2 96.6 83.0-108.0 mmHg Arterial Blood HCO3 25.4 21.0-28.0 mmol/L Arterial Blood Oxygen Saturation 97.6 94.0-98.0 % Arterial Blood Base Excess -1.4 -2.0-3.0 mmol/L Arterial Blood Oxyhemoglobin 96.5 94.0-98.0 % Arterial Blood Carboxyhemoglobin 0.5 0.5-1.5 % Arterial Blood Methemoglobin 0.6 0.0-1.5 % Jun Test Modified Blood Gas Total Hemoglobin 15.20 13.5-17.5 g/dL Blood Gas Set Respiration Rate 24.0 Blood Gas Modality Vent - ac Blood Gas Spontaneous Rate 24 FiO2 % 50.0 Blood Gas Tidal Volume 550.0 Blood Gas PEEP or CPAP 5.0 Blood Gas Critical Value Read Back Yes Blood Gas Notified Whom jane Thurman np Blood Gas Notified Time [id number] Blood Gas Notified By Nasir henry rrt Blood Gas Spontaneous Tidal Volume 450 Blood Gas EPAP 8 Blood Gas IPAP 18 Test 05/22/24 08:17 05/22/24 05:50 05/22/24 05:01 05/22/24 04:19 Range/Units Troponin I High Sensitivity 73 *H </=54 ng/L Influenza Type A Antigen Negative Negative Influenza Type B Antigen Negative Negative SARS-CoV-2 Antigen (Rapid) Negative NEGATIVE Urine Color Light-yellow Yellow Urine Clarity Clear Clear Urine pH 5.5 5.0-9.0 Urine Specific [place] 1.011 1.001-1.035 Urine Protein Trace H Negative Urine Ketones Negative Negative Urine Blood 1+ H Negative /uL Urine Nitrite Negative Negative Urine Bilirubin Negative Negative Urine Urobilinogen Normal Negative mg/dL Urine Leukocyte Esterase Negative Negative /uL Urine RBC 2 0 - 3 /hpf Urine WBC 1 0 - 3 /hpf Urine Squamous Epithelial Cells None seen <5 /hpf Urine Bacteria None seen None Seen /hpf Urine Glucose Normal Normal mg/dL White Blood Count 15.2 H 4.4-10.8 10^3/uL Red Blood Count 5.06 4.5-5.90 10^6/uL Hemoglobin 15.6 13.5-17.5 g/dL Hematocrit 46.3 41.0-53.0 % Mean Corpuscular Volume 91.6 80.0-100.0 fL Mean Corpuscular Hemoglobin 30.8 28.0-32.0 pg Mean Corpuscular Hemoglobin Concent 33.7 32.0-36.0 g/dL Red Cell Distribution Width 13.3 11.8-14.3 % Platelet Count 209 140-450 10^3/uL Mean Platelet Volume 8.2 6.9-10.8 fL Neutrophils (%) (Auto) 85.2 H 37.0-80.0 % Lymphocytes (%) (Auto) 11.4 10.0-50.0 % Monocytes (%) (Auto) 3.2 0.0-12.0 % Eosinophils (%) (Auto) 0.0 0.0-7.0 % Basophils (%) (Auto) 0.2 0.0-2.0 % Neutrophils # (Auto) 12.9 H 1.6-8.6 10 ^3/uL Lymphocytes # (Auto) 1.7 0.4-5.4 10 ^3/uL Monocytes # (Auto) 0.5 0-1.3 10 ^3/uL Eosinophils # (Auto) 0 0-0.8 10 ^3/uL Basophils # (Auto) 0 0-0.2 10 ^3/uL Nucleated Red Blood Cells 0.0 % D-Dimer, Quantitative 0.79 H 0.0-0.49 mg/L FEU Sodium Level 140 136-145 mmol/L Potassium Level 4.4 3.5-5.1 mmol/L Chloride Level 106 98-107 mmol/L Carbon Dioxide Level 27 20-31 mmol/L Anion Gap 7 5-15 Blood Urea Nitrogen 15 9-23 mg/dL Creatinine 1.06 0.700-1.30 mg/dL Glomerular Filtration Rate Calc 71 >90 mL/min BUN/Creatinine Ratio 14.2 10.0-20.0 Serum Glucose 138 H 74-106 mg/dL Calcium Level 9.2 8.7-10.4 mg/dL Magnesium Level 2.2 1.6-2.6 mg/dL Total Bilirubin 2.0 H 0.2-1.0 mg/dL Aspartate Amino Transferase (AST) 18 13-40 U/L Alanine Aminotransferase (ALT) 21 7-40 U/L Alkaline Phosphatase 56 46-116 U/L B-Type Natriuretic Peptide 326.61 0-100 pg/mL Total Protein 6.5 5.7-8.2 g/dL Albumin 4.1 3.2-4.8 g/dL Assessment NTSEMI, likely type II secondary to acute hypoxic respiratory failure Coronary artery disease s/p multiple PTCA's X 3 CORDELIA (on ASA) Rule out structural heart disease History of myocardial infarction X 2 Hypertension COPD Obstructive sleep apnea without CPAP use Tobacco use Morbid obesity Plan/Recommendation We will continue with the following plan/recommendations (Dr. Gutierrez): * Echocardiogram to evaluate cardiac function * Vasopressors for hemodynamic support * Single antiplatelet therapy and lipid-lowering agent * Cardiac surveillance * DVT/VTE prophylaxis The patient seen and examined at bedside with . At this time we will proceed with obtaining a transthoracic echocardiogram to evaluate cardiac function and wall motion. Continue with medical management at this time. Further recommendations per clinical course and progression. Thank you for allowing us to care for this patient. Please call with any questions or concerns. Critical care time spent: 42 minutes This medical document was created using an electronic medical record system with voice recognition software and computerized dictation system. Although this document has been carefully reviewed, there might still be some phonetic and typographical errors. Occasional wrong-word or ``sound-alike substitutions may have occurred due to the inherent limitations of voice recognition software. These areas are purely typographical due to imperfections of the software programs and do not reflect any compromise in the patient's medical care. Please read the chart carefully and recognize, using context, where these substitutions have occurred. Plan discussed with: Other (Bedside RN, and the patient's daughter) NYHA Physical activity limitations: NA Date of Service: May 22, 2024 Billing Provider: MAY GUTIERREZ MD Cardiology Common Codes: 58176-ZWCUDGM INP/OBS CARE (High) Cardiology Consultation Codes: 53652-[id number] CONSULT <45MIN RODRÍGUEZ MARION May 22, 2024 16:28
[2024-05-22 16:59] LABS: Base Excess -4.7 mmol/L (-2.0-3.0)
--- NOTE | 2024-05-22 17:46 | DVHNC2 ---
Intubation Indication: Respiratory Insufficiency Prep: Preoxygenation Pretreated with: Analgesia, Sedation Medicated with: Other Intubation Approach: Orotracheal Informed consent obtained: Yes Risks/benefits/alt described: Yes Notes A time out was performed. The patient was placed on a cardiac specialist including continuous pulse oximetry. Rapid Sequence Intubation was conducted. The patient received propofol for induction and 20 mg of etomidate_and 100mg rocuronium for adequate paralysis. Cricoid pressure was maintained from time induction agent was given to time of cuff balloon inflation. Using a _glidoscope laryngoscope and a size _7.5 endotracheal tube with stylet, the patient was intubated on the 1st_ attempt. The stylet was removed and cuff balloon was inflated. Appropriate endotracheal tube position was confirmed by direct visualization of vocal cord passage, fogging of the tube, CO2 colormetric indicator and symmetric breath sounds. The tube was secured at _24 cm at the lips. Post intubation chest x-ray is pending at this time. Date of Service: May 22, 2024 Billing Provider: JOSE JUAN ENCISO MD Common Visit Codes: PROCEDURE ONLY Procedure Codes: [id number] LUIS MCCANN RESIDENT May 22, 2024 17:46
[2024-05-22] MEDS: ATORVASTATIN 20 MG TAB PO SCH (21:04)
--- NOTE | 2024-05-22 22:50 | DVHINCON2 ---
Date of service: May 22, 2024 Referring Physician Ju Thurman NP Reason for Consultation Acute hypoxic/hypercarbic respiratory failure requiring mechanical vent, COPD exacerbation History of Present Illness A 79-year-old man with past medical history of hypertension, COPD, asthma, CAD, and OR status post PTCA who presents today for chief complaint of shortness of breath. Daughter reports that around 3:00 a.m., the patient woke her up due to shortness of breath and some chest tightness. Daughter gave him an inhaler with no relief, oxygen saturation was 91% on room air, then she called EMS. Daughter reports that he has annual COPD exacerbations, he was a heavy smoker and quit recently. Patient recently was sick with a cold and got better. Patient was admitted for further care and pulmonary consultation is requested for evaluation and management due to the above findings. Review of Systems: 14-point review of systems negative unless otherwise noted above. Past Medical History: Hypertension, COPD, asthma, CAD, and OR status post PTCA Past Surgical History: PTCA (stent was placed in [place] over 5 years ago). Medications: Reviewed. Allergies: Clopidogrel. Family History: No family history of premature CAD. No family history of lung disorders. Social History: Former smoker - was a heavy smoker and quit recently. Occasional alcohol use. No illicit drug use Allergies: Coded Allergies: Clopidogrel (Verified Allergy, Unknown, 02/11/19) Home Meds Active Scripts Hydroxyzine Hcl (Hydroxyzine Hcl) 25 Mg Tab, 1 TAB PO BID PRN, #30 TAB Prov:ELMA DO 06/16/23 Reported Medications Sacubitril-Valsartan (Entresto 24-26 mg) 1 Tab Tab, 1 TAB PO BID 05/22/24 Tamsulosin Hcl (Tamsulosin Hcl) 0.4 Mg Cap, 1 CAP PO DAILY 05/22/24 Atorvastatin Calcium (ATORVASTATIN CALCIUM) 40 Mg Tab, 1 TAB PO DAILY 05/22/24 Carvedilol (Carvedilol) 12.5 Mg Tab, 1 TAB PO BID 05/22/24 Current Medications Current Medications Medications (Trade) Dose Ordered Sig/Mindy Route PRN Reason Start Time Stop Time Status Last Admin Midazolam HCl 50 ml @ 1 mls/hr Q24H IV 05/22/24 08:45 05/22/24 21:33 Norepinephrine Bitartrate 250 ml @ 3.75 mls/hr Q24H IV 05/22/24 09:00 05/22/24 12:44 Ceftriaxone Sodium 50 ml @ 100 mls/hr DAILY@09 IV 05/22/24 09:00 05/22/24 11:27 Azithromycin 250 ml @ 125 mls/hr DAILY IV 05/22/24 10:00 05/22/24 11:28 Methylprednisolone Sodium Succinate (Solu Medrol) 40 mg Q8HR IV 05/22/24 14:00 05/22/24 21:19 Albuterol (Ventolin Medneb) 2.5 mg Q4HR NEB 05/22/24 10:00 05/22/24 22:03 Ipratropium [place] (Atrovent Medneb) 0.5 mg Q4HR NEB 05/22/24 10:00 05/22/24 22:03 Sodium Chloride 1,000 ml @ 75 mls/hr [id number] IV 05/22/24 08:30 05/22/24 11:27 Morphine Sulfate 2 mg Q30MP PRN IV FOR CHEST PAIN 05/22/24 08:30 05/22/24 09:11 DC Acetaminophen (Tylenol Tablet) 650 mg Q6HP PRN PO MILD PAIN (1-3 PAIN SCALE) 05/22/24 08:30 05/22/24 09:11 DC Nitroglycerin (Ntrostat Sublingual) 0.4 mg Q5MINP PRN SL FOR CHEST PAIN 05/22/24 08:30 05/22/24 09:11 DC Nitroglycerin (Ntrostat Sublingual) 0.4 mg Q5MINP PRN SL FOR CHEST PAIN 05/22/24 08:30 05/22/24 09:11 DC Morphine Sulfate 2 mg Q30M PRN IV FOR CHEST PAIN 05/22/24 08:30 05/22/24 09:11 DC Enoxaparin Sodium (Lovenox) 30 mg DAILY SC 05/22/24 10:00 05/22/24 09:11 DC Midazolam HCl 50 ml @ 1 mls/hr Q24H IV 05/22/24 09:15 05/22/24 12:56 DC Morphine Sulfate 2 mg Q30MP PRN IV FOR CHEST PAIN 05/22/24 09:00 UNV Morphine Sulfate 2 mg Q30M PRN IV FOR CHEST PAIN 05/22/24 09:30 Enoxaparin Sodium (Lovenox) 30 mg DAILY SC 05/22/24 10:00 05/22/24 11:29 Acetaminophen (Tylenol Tablet) 650 mg Q6HP PRN PO MILD PAIN (1-3 PAIN SCALE) 05/22/24 09:00 Nitroglycerin (Ntrostat Sublingual) 0.4 mg Q5MINP PRN SL FOR CHEST PAIN 05/22/24 09:00 UNV Nitroglycerin (Ntrostat Sublingual) 0.4 mg Q5MINP PRN SL FOR CHEST PAIN 05/22/24 09:00 Propofol 100 ml @ 3.06 mls/hr Q24H IV 05/22/24 13:45 05/22/24 19:39 Fentanyl Citrate 250 ml @ 2.5 mls/hr Q24H IV 05/22/24 14:45 05/22/24 14:52 Phenylephrine HCl 250 ml @ 30 mls/hr Q8H20M IV 05/22/24 15:45 Aspirin 81 mg DAILY PO 05/23/24 10:00 Atorvastatin Calcium (Lipitor) 40 mg HS PO 05/22/24 22:00 Vital Signs Vital Signs Date Time Temp Pulse Resp B/P (MAP) Pulse Ox O2 Delivery O2 Flow Rate FiO2 05/22/24 22:00 24 99 Mechanical Ventilator+ 50 50 05/22/24 22:00 78 05/22/24 21:00 98.1 112/60 98.1 05/22/24 07:47 0 Physical Exam Gen.: Patient lying in bed in medical ICU. Sedated, intubated on mechanical ventilator. Head: Normocephalic, atraumatic. Eyes: PERRLA. Ears: Normal external anatomy. Throat: Endotracheal tube and orogastric tube in place. Neck: Supple, trachea midline. Chest: Transmitted breath sounds bilaterally. Decreased air entry bilaterally. Bilateral wheezing. Bibasilar crackles. Cardiovascular: Positive S1, positive S2. Regular rate and rhythm. Abdomen: Positive bowel sounds in all 4 quadrants. Soft, nontender, nondistended. : Aguero in place. Normal external genitalia. Rectal: Deferred. Skin: Warm, dry. Intact. Extremities: 2+ radial pulses bilaterally. No lower extremity edema. Neuro: Sedated. Labs/Diagnostic Data Labs Test 05/22/24 16:24 05/22/24 14:50 05/22/24 13:50 05/22/24 11:40 Range/Units Blood Gas Specimen Type Arterial Blood Gas Sample Site Right radial Blood Gas Patient Temperature 37.0 Arterial Blood Date Drawn [id number] Arterial Blood pH 7.349 L 7.350-7.450 Arterial Blood Partial Pressure CO2 37.7 35.0-48.0 mmHg Arterial Blood Partial Pressure O2 86.4 83.0-108.0 mmHg Arterial Blood HCO3 20.3 L 21.0-28.0 mmol/L Arterial Blood Oxygen Saturation 96.3 94.0-98.0 % Arterial Blood Base Excess -4.7 L -2.0-3.0 mmol/L Arterial Blood Oxyhemoglobin 95.0 94.0-98.0 % Arterial Blood Carboxyhemoglobin 1.1 0.5-1.5 % Arterial Blood Methemoglobin 0.3 0.0-1.5 % Jun Test Modified Blood Gas Total Hemoglobin 15.20 13.5-17.5 g/dL Blood Gas Set Respiration Rate 24.0 Blood Gas Modality Vent - p/c Blood Gas Spontaneous Rate 24 FiO2 % 45.0 Blood Gas Spontaneous Tidal Volume 550 Blood Gas Inspiratory Pressure 33.0 Blood Gas PEEP or CPAP 5.0 Lactic Acid Level 1.4 0.4-2.0 mmol/L Blood Gas Tidal Volume 550.0 Blood Gas Critical Value Read Back Yes Blood Gas Notified Whom jane Thurman np Blood Gas Notified Time [id number] Blood Gas Notified By Nasir henry it risk advisor Test 05/22/24 08:20 05/22/24 08:17 05/22/24 05:50 05/22/24 05:01 Range/Units Blood Gas EPAP 8 Blood Gas IPAP 18 Troponin I High Sensitivity 73 *H </=54 ng/L Influenza Type A Antigen Negative Negative Influenza Type B Antigen Negative Negative SARS-CoV-2 Antigen (Rapid) Negative NEGATIVE Urine Color Light-yellow Yellow Urine Clarity Clear Clear Urine pH 5.5 5.0-9.0 Urine Specific [place] 1.011 1.001-1.035 Urine Protein Trace H Negative Urine Ketones Negative Negative Urine Blood 1+ H Negative /uL Urine Nitrite Negative Negative Urine Bilirubin Negative Negative Urine Urobilinogen Normal Negative mg/dL Urine Leukocyte Esterase Negative Negative /uL Urine RBC 2 0 - 3 /hpf Urine WBC 1 0 - 3 /hpf Urine Squamous Epithelial Cells None seen <5 /hpf Urine Bacteria None seen None Seen /hpf Urine Glucose Normal Normal mg/dL Test 05/22/24 04:19 Range/Units White Blood Count 15.2 H 4.4-10.8 10^3/uL Red Blood Count 5.06 4.5-5.90 10^6/uL Hemoglobin 15.6 13.5-17.5 g/dL Hematocrit 46.3 41.0-53.0 % Mean Corpuscular Volume 91.6 80.0-100.0 fL Mean Corpuscular Hemoglobin 30.8 28.0-32.0 pg Mean Corpuscular Hemoglobin Concent 33.7 32.0-36.0 g/dL Red Cell Distribution Width 13.3 11.8-14.3 % Platelet Count 209 140-450 10^3/uL Mean Platelet Volume 8.2 6.9-10.8 fL Neutrophils (%) (Auto) 85.2 H 37.0-80.0 % Lymphocytes (%) (Auto) 11.4 10.0-50.0 % Monocytes (%) (Auto) 3.2 0.0-12.0 % Eosinophils (%) (Auto) 0.0 0.0-7.0 % Basophils (%) (Auto) 0.2 0.0-2.0 % Neutrophils # (Auto) 12.9 H 1.6-8.6 10 ^3/uL Lymphocytes # (Auto) 1.7 0.4-5.4 10 ^3/uL Monocytes # (Auto) 0.5 0-1.3 10 ^3/uL Eosinophils # (Auto) 0 0-0.8 10 ^3/uL Basophils # (Auto) 0 0-0.2 10 ^3/uL Nucleated Red Blood Cells 0.0 % D-Dimer, Quantitative 0.79 H 0.0-0.49 mg/L FEU Sodium Level 140 136-145 mmol/L Potassium Level 4.4 3.5-5.1 mmol/L Chloride Level 106 98-107 mmol/L Carbon Dioxide Level 27 20-31 mmol/L Anion Gap 7 5-15 Blood Urea Nitrogen 15 9-23 mg/dL Creatinine 1.06 0.700-1.30 mg/dL Glomerular Filtration Rate Calc 71 >90 mL/min BUN/Creatinine Ratio 14.2 10.0-20.0 Serum Glucose 138 H 74-106 mg/dL Calcium Level 9.2 8.7-10.4 mg/dL Magnesium Level 2.2 1.6-2.6 mg/dL Total Bilirubin 2.0 H 0.2-1.0 mg/dL Aspartate Amino Transferase (AST) 18 13-40 U/L Alanine Aminotransferase (ALT) 21 7-40 U/L Alkaline Phosphatase 56 46-116 U/L B-Type Natriuretic Peptide 326.61 0-100 pg/mL Total Protein 6.5 5.7-8.2 g/dL Albumin 4.1 3.2-4.8 g/dL Assessment Impression: Acute hypoxic respiratory failure Acute hypercarbic respiratory failure On mechanical ventilator COPD exacerbation Hx of nicotine dependence Morbid obesity, BMI 40 Atelectasis Plan: s/p intubation on mechanical ventilator. CXR image and report reviewed. Devices in place. Pulmonary vascular congestion. No pneumothorax. No pleural effusion. Vent changed to PC mode; RR 24; I-Pressure 33; I-time 0.9, PEEP 5, 45% FiO2 Obtain repeat ABG in 1 hour Continuous med neb ordered. Titrate FIO2 to keep O2 saturation above 90%. VAP bundle. Daily ABG and CXR while intubated Sedate for ventilator synchrony - on Propofol, Versed, Fentanyl. Continue bronchodilators. Continue antibiotics. F/u cultures. On pressors for hemodynamic support Levophed 14 mcg/min Titrate to keep mean arterial pressure greater than 65 mmHg. Monitor renal function Monitor electrolytes. Supplement as necessary. Monitor ins and outs. Maintain euvolemia. Morbid Obesity - complicates all care GI prophylaxis. DVT prophylaxis. Prognosis: Poor given patient's multiple co-morbidities. Condition: Critical Rest of plan per hospitalist and other consultants. A total of 35 minutes of critical care time was spent reviewing the patient record, examining the patient, making a diagnostic and therapeutic plan, discussing this plan with the medical personnel, following up on diagnostic studies and following the patient for clinical stability excluding any and all procedures. At least 50% of this time was spent in direct, [id number] contact. Thank you, RAFA Thurman, for allowing me to participate in this patient's care. Further recommendations will depend on the patient's clinical course. Please do not hesitate to contact me if you have any questions or concerns. This medical document was created using an electronic medical record system with [employer] computerized dictation system. Although these documentations are being carefully reviewed, there may still be some phonetic and typographical changes. The errors are purely typographical, due to imperfection on the software program, and do not reflect any compromise in the patient's medical care. Plan discussed with: Daughter, Other (MALICK Masterson/RAFA Thurman/) RYAN ROMERO MD May 22, 2024 22:50
[2024-05-23] VITALS (93 sets, daily range): BP systolic 80–171; BP diastolic 42–82; PULSE 60–101; RESP 12–30; TEMP 96.3–99.3; O2SAT 92–100
[2024-05-23] MEDS: IOHEXOL 350 MG/ML 100ML IJ ONE (01:52)
[2024-05-23] MEDS: IPRATROPIUM BROM 0.5 MG/2.5ML INH SOL ONE (02:12)
[2024-05-23] MEDS: ALBUTEROL SULF 2.5 MG/0.5ML(0.5%) NEB SOLN ONE (02:12)
[2024-05-23] MEDS: MIDAZOLAM DRIP 50 mg/50mL 50 ML IV ONE ×2 (02:34→07:52)
--- NOTE | 2024-05-23 02:39 | DVH ---
Examination: CTACH CLINICAL INDICATION: SOB, COMPARISON: None. CONTRAST USED: Intravenous. TECHNIQUE: Axial images were obtained through the thorax with contrast. Appropriate 3D, MPR, CMPR, thick and thin MIP and VRT views were obtained from multiple phase reconstructions. The CT scan was conducted according to ALARA (As Low as Reasonably Achievable) principles, with multiplanar reconstru ctions obtained. FINDINGS: Lower neck and thyroid: Appear normal. Atherosclerotic changes are seen involving the aorta and coronary arteries. No evidence of dissectio n is seen. Aneurysmal prominence of ascending thoracic aorta is seen, measuring 4 cm. No mediastinal masses or lymphadenopathy seen. Central pulmonary arteries appear unremarkable. The right and left main pulmonary arteries appear no rmal. No evidence of filling defect is seen. Subsegmental atelectasis is seen in right upper lobe, lingula and both lower lobes. Rest of the lung parenchyma appears unremarkable. No pleural effusion is seen. No pericardial effusion is seen. Endotracheal tube is seen with its tip above the karoline. Degenerative changes are seen in the thoracic spine. Visualized Upper Abdomen: Small calcific focus is seen in the right lobe of liver. Nasogastric tube is seen in the stomach. Atherosclerotic changes are seen involving the aorta and coronary arteries. IMPRESSION: 1. No evidence of pulmonary arterial thromboembolism. 2. No evidence of aortic aneurysm or dissection is seen. 3. Atherosclerotic changes are seen involving the aorta and coronary arteries. 4. Aneurysmal prominence of ascending thoracic aorta. 5. Subsegmental atelectasis is seen in right upper lobe, lingula and both lower lobes. 6. Additional chronic and/or ancillary findings as detailed above. Suggest clinical correlation and follow-up as clinically deemed necessary. Electronically Signed 05/23/2024 02:38 Remberto Bullock
--- NOTE | 2024-05-23 04:33 | DVH ---
CHEST RADIOGRAPH Indication: decreasing spo2 Technique: Single frontal view of the chest was obtained Comparison: XY CHEST PORTABLE on DOS: 05/22/24 FINDINGS: Lines and Tubes: The endotracheal tube terminates 3.3 cm above the karoline. Right central venous laith ter terminates in the superior vena cava. The enteric tube courses below the left hemidiaphragm and t he tip extends outside the field of view. Lungs: Mild bilateral opacities. Pleura: No effusion. No pneumothorax. Cardiomediastinal contours: Unremarkable Bones: No acute osseous abnormality. IMPRESSION: 1. Bilateral opacities which may reflect atelectasis.
[2024-05-23] MEDS: methylPREDNISolone SOD SUCC 40 MG/ML VL ONE ×2 (05:01→15:40)
[2024-05-23 06:11] LABS: Basophils # (auto) 0.1 10 ^3/uL (0-0.2); Basophils % (auto) 0.6 % (0.0-2.0); Eosinophils # (auto) 0 10 ^3/uL (0-0.8); Hematocrit 43.2 % (41.0-53.0); Hemoglobin 14.3 g/dL (13.5-17.5); Lymphocytes # (auto) 0.3 10 ^3/uL (0.4-5.4); Lymphocytes % (auto) 1.8 % (10.0-50.0); Mean Corpuscular Hemoglobin 30.5 pg (28.0-32.0); Mean Corpuscular Volume 92.2 fL (80.0-100.0); Monocytes # (auto) 0.7 10 ^3/uL (0-1.3); Monocytes % (auto) 4.4 % (0.0-12.0); Neutrophils # (auto) 15.1 10 ^3/uL (1.6-8.6); Neutrophils % (auto) 93.2 % (37.0-80.0); Platelet Count (auto) 197 10^3/uL (140-450); Red Blood Cells 4.69 10^6/uL (4.5-5.90); Red Cell Distribution Width 13.3 % (11.8-14.3); White Blood Cell 16.3 10^3/uL (4.4-10.8)
[2024-05-23 06:26] LABS: Alanine Aminotransferase 20 U/L (7-40); Albumin 3.9 g/dL (3.2-4.8); Alkaline Phosphatase 46 U/L (46-116); Anion Gap 10 (5-15); Blood Urea Nitrogen 17 mg/dL (9-23); Calcium 9.5 mg/dL (8.7-10.4); Carbon Dioxide 23 mmol/L (20-31); Potassium 3.9 mmol/L (3.5-5.1); Sodium 141 mmol/L (136-145); Total Protein 6.3 g/dL (5.7-8.2)
[2024-05-23 06:28] LABS: Aspartate Aminotransferase 40 U/L (13-40); Bilirubin, Total 1.4 mg/dL (0.2-1.0); Chloride 108 mmol/L (98-107); Glucose 206 mg/dL (74-106)
[2024-05-23 06:48] LABS: LDL Cholesterol 48 mg/dL (< 100); Triglycerides 118 mg/dL (< 150)
[2024-05-23 06:49] LABS: HDL Cholesterol 49 mg/dL (40-59)
[2024-05-23 06:50] LABS: Cholesterol 112 mg/dL (< 200)
[2024-05-23 07:33] LABS: Base Excess -1.5 mmol/L (-2.0-3.0)
[2024-05-23] MEDS: ASPirin 81 mg TAB PO SCH (10:09)
[2024-05-23] MEDS: cefTRIAXone 1GM/50ML D5W 50 ML IV ONE (10:23)
[2024-05-23 10:45] LABS: Base Excess -3.2 mmol/L (-2.0-3.0)
[2024-05-23] MEDS: AZITHROMYCIN 500MG/ 250ML 250 ML IV SCH (11:03)
--- NOTE | 2024-05-23 11:41 | DVHSR ---
APPROVED REPORT EXAM: LIMITED Two-dimensional and M-mode echocardiogram with Doppler and color Doppler. Blood Pressure: 102/50 mmHg INDICATION Chest Pain RISK FACTORS Obesity: Height: 5'5, Weight: 200 DIMENSIONS LVDd (3.8-5.7cm)LA (2D)3.9 (1.9-4.0cm)Aortic Root3.6 (2.0-3.7cm) LVDs (2.5-4.0cm)LA (MM) (1.9-4.0cm)Aortic Cusp Exc1.9 (1.5-2.0cm) EF (%) 45.0 (55-70%)Rt. Atrium3.4 (1.9-4.0cm)Asc. Aorta3.7 cm IVSd (0.7-1.1cm)RV (D)3.2 (1.8-2.4cm) Mitral Valve MitralMitral Stenosis E wave0.39m/sMV Mean GR.0mmHg A wave0.61m/sMV Peak GR.64mmHg E/A ratio0.62D MVAcm2 DECEL [id number] 1/2 Timems Aortic Valve Aortic ValveAortic Stenosis V10.99m/Matt Mean GR.3mmHg V21.12m/Matt Peak GR.5mmHg LVOT Diameter2.1 (1.8-2.4cm)Doppler AVA3.06cm2 Tricuspid Valve TR Velocity2.20m/s [id number] LEFT VENTRICLE The left ventricle is of normal size. Ejection fraction is likely mildly decreased and is estimated at 45%. There is poor endocardial definition to assess for wall motion abnormalities. There is poss ible hypokinesis of the basal and mid posterior wall. Diastolic function is indeterminate. RIGHT VENTRICLE The right ventricle is of normal size. Systolic function is normal. ATRIA Both atria are of normal size. MITRAL VALVE Normal structure and function. No significant regurgitation. PULMONIC VALVE Not visualized. TRICUSPID VALVE No significant regurgitation. PA systolic pressure is estimated at 30 mm Hg. AORTIC VALVE Not well visualized. There is no evidence of significant stenosis or regurgitation. GREAT VESSELS The aortic root and proximal ascending aorta are of normal size. PERICARDIAL EFFUSION No significant pericardial effusion. IVC is not visualized. Other Information Quality : Technically LimitedRhythm : Technically limited study due to patient moving.on vent. Conclusion The study is very technically limited. Normal left ventricular size with ejection fraction of around 45%. Possible hypokinesis of the basal and mid posterior wall. Normal right ventricular size and systolic function. No evidence of hemodynamically significant valvular disease. PA systolic pressure is estimated at 30 mm Hg.
[2024-05-23] MEDS: MIDAZOLAM DRIP 50 mg/50mL 50 ML IV SCH (12:19)
--- NOTE | 2024-05-23 12:36 | ECG ---
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
[2024-05-23] MEDS: ALBUTEROL SULF 2.5 MG/0.5ML(0.5%) NEB SOLN NEB SCH (13:49)
[2024-05-23] MEDS: IPRATROPIUM BROM 0.5 MG/2.5ML INH SOL NEB SCH (13:49)
--- NOTE | 2024-05-23 15:22 | DVHPN2 ---
Subjective Patient intubated and sedated. Reviewed: Care Plan, H&P, Labs, Medications Changes from previous H/P or p: No Changes General: Per HPI Eyes: No Pain, No Vision change, No Conjunctivae inflammation, No Eyelid inflammation, No Other, No Redness ENT: No Ear pain, No Ear discharge, No Nose pain, No Nose discharge, No Nose congestion, No Mouth pain, No Mouth swelling, No Throat pain, No Throat swelling, No Other Cardiovascular: No Chest Pain, No Palpitations, No Orthopnea, No Paroxysmal Noc. Dyspnea, No Edema, No Lt Headedness; Other (Chest tightness) Respiratory: No Cough, No Dry; Shortness of breath; No SOB with excertion, No Wheezing, No Hemoptysis, No Pleuritic Pain, No Sputum, No Other Gastrointestinal: No Nausea, No Vomiting, No Abdominal Pain, No Diarrhea, No Constipation, No Melena, No Hematochezia, No Other Genitourinary: No Dysuria, No Frequency, No Incontinence, No Hematuria, No Retention, No Other Musculoskeletal: No other, No neck pain, No shoulder pain, No arm pain, No back pain, No hand pain, No leg pain, No foot pain Skin: No Rash, No Lesions, No Jaundice, No Bruising, No Other Objective Vitals Vital Signs Date Time Temp Pulse Resp B/P (MAP) Pulse Ox O2 Delivery O2 Flow Rate FiO2 05/23/24 14:01 71 24 96 05/23/24 13:51 101/57 (72) 45 05/23/24 13:36 Mechanical Ventilator+ 05/23/24 13:30 97.3 207.1 05/22/24 07:47 0 Intake/Output Intake and Output 05/23/24 07:00 Intake Total 3211.34 ml Output Total 1700 ml Balance 1511.34 ml Intake Oral 0 ml IV Total 3211.34 ml Output Urine Total 1700 ml General Appearance: Alert, Oriented X3, Cooperative, No acute distress HEENT: Atraumatic, PERRLA Lungs: Clear to auscultation, Normal air movement, Other (Mechanical ventilation) Cardiovascular: Normal S1, Normal S2 Genitourinary: No Apparent Abnormalities (Aguero catheter) Musculoskeletal: Other (Unable to assess) Skin: Dry, Intact Psych/Mental Status: Other (Unable to assess) Medications Current Medications Medications Dose Ordered Sig/Mindy Route Start Time Stop Time Status Last Admin Dose Admin Norepinephrine Bitartrate 250 ml @ 3.75 mls/hr Q24H IV 05/22/24 09:00 05/22/24 12:44 3.75 MLS/HR Ceftriaxone Sodium 50 ml @ 100 mls/hr DAILY@09 IV 05/22/24 09:00 05/23/24 10:09 100 MLS/HR Methylprednisolone Sodium Succinate 40 mg Q8HR IV 05/22/24 14:00 05/23/24 05:01 40 MG Sodium Chloride 1,000 ml @ 75 mls/hr [id number] IV 05/22/24 08:30 05/23/24 00:21 75 MLS/HR Morphine Sulfate 2 mg Q30MP PRN IV 05/22/24 09:00 UNV Morphine Sulfate 2 mg Q30M PRN IV 05/22/24 09:30 Enoxaparin Sodium 30 mg DAILY SC 05/22/24 10:00 05/23/24 10:09 30 MG Acetaminophen 650 mg Q6HP PRN PO 05/22/24 09:00 Nitroglycerin 0.4 mg Q5MINP PRN SL 05/22/24 09:00 UNV Nitroglycerin 0.4 mg Q5MINP PRN SL 05/22/24 09:00 Propofol 100 ml @ 3.06 mls/hr Q24H IV 05/22/24 13:45 05/23/24 10:08 12.24 MLS/HR Fentanyl Citrate 250 ml @ 2.5 mls/hr Q24H IV 05/22/24 14:45 05/22/24 14:52 2.5 MLS/HR Phenylephrine HCl 250 ml @ 30 mls/hr Q8H20M IV 05/22/24 15:45 Aspirin 81 mg DAILY PO 05/23/24 10:00 05/23/24 10:09 81 MG Atorvastatin Calcium 40 mg HS PO 05/22/24 22:00 Azithromycin 250 ml @ 125 mls/hr DAILY IV 05/23/24 10:00 05/23/24 11:03 125 MLS/HR Albuterol 2.5 mg Q4HR NEB 05/23/24 14:00 05/23/24 13:49 2.5 MG Ipratropium [place] 0.5 mg Q4HR NEB 05/23/24 14:00 05/23/24 13:49 0.5 MG Midazolam HCl 50 ml @ 1 mls/hr Q24H IV 05/23/24 12:15 05/23/24 12:19 10 MLS/HR Laboratory Results Laboratory Tests 05/23/24 05:45 Chemistry Test 05/23/24 05:45 Albumin 3.9 g/dL (3.2-4.8) Calcium Level 9.5 mg/dL (8.7-10.4) Total Protein 6.3 g/dL (5.7-8.2) Lipid panel Test 05/23/24 05:45 Cholesterol Level 112 mg/dL (< 200) HDL Cholesterol 49 mg/dL (40-59) Triglycerides Level 118 mg/dL (< 150) LFT Test 05/23/24 05:45 Alanine Aminotransferase (ALT) 20 U/L (7-40) Alkaline Phosphatase 46 U/L (46-116) Aspartate Amino Transferase (AST) 40 U/L (13-40) Total Bilirubin 1.4 mg/dL (0.2-1.0) H HgA1c, TSH Test 05/23/24 05:45 Hemoglobin A1c 6.5 % A1C (<5.7) H Thyroid Stimulating Hormone (TSH) 0.71 uIU/mL (0.55-4.78) Urinalysis Test 05/22/24 05:01 Urine Color Light-yellow (Yellow) Urine Clarity Clear (Clear) Urine pH 5.5 (5.0-9.0) Urine Specific [place] 1.011 (1.001-1.035) Urine Protein Trace (Negative) H Urine Ketones Negative (Negative) Urine Blood 1+ /uL (Negative) H Urine Nitrite Negative (Negative) Urine Bilirubin Negative (Negative) Urine Urobilinogen Normal mg/dL (Negative) Urine Leukocyte Esterase Negative /uL (Negative) Urine RBC 2 /hpf (0 - 3) Urine WBC 1 /hpf (0 - 3) Urine Squamous Epithelial Cells None seen /hpf (<5) Urine Bacteria None seen /hpf (None Seen) Urine Glucose Normal mg/dL (Normal) Blood Gas Results Test 05/22/24 16:24 05/23/24 07:26 05/23/24 10:24 05/23/24 13:11 Arterial Blood pH 7.349 (7.350-7.450) 7.546 (7.350-7.450) 7.333 (7.350-7.450) 7.439 (7.350-7.450) FiO2 % 45.0 40.0 40.0 45.0 Microbiology Microbiology Date/Time Source Procedure Growth Status 05/22/24 14:50 Blood Blood Culture - Preliminary NO GROWTH AFTER 24 HOURS OF INCUBATION. Resulted 05/22/24 14:27 Nose MRSA Screen - Final Complete 05/22/24 09:12 Sputum Gram Stain - Final Resulted 05/22/24 09:12 Sputum Respiratory Culture - Preliminary Resulted Labs and/or images reviewed: Labs reviewed by me, Image(s) reviewed by me Assessment/Plan Assessment/Plan Impression: -acute hypoxic respiratory failure mechanical ventilation -COPD with exacerbation -leukocytosis, rule out sepsis -obesity -history of CAD -history of nicotine dependence -NSTEMI type 2 secondary to respiratory failure -acute kidney injury, rule out vasomotor nephropathy Plan: -continue current ventilator settings per pulmonology, recommend spontaneous breathing trial in a.m.. Wean FiO2 to keep saturation greater than 91% -continue bronchodilators, Pulmicort -continue IV hydration -continue current antibiotic therapy -PUD, DVT prophylaxis -repeat labs, chest x-ray in a.m. -long discussion made with the patient's family regarding plan of care. All questions answered. Critical care time spent with patient discussing and formulating plan of care: 90 minutes. This does not include time spent performing procedures. This medical document was created using an electronic medical record system with [employer] dictation system. Although this document has been carefully reviewed, there may still be some phonetic and typographical errors. These areas are purely typographical due to imperfections of the software programs, and do not reflect any compromise in the patient's medical care. Plan discussed with: Patient, Daughter, Son, Other (RN) My Orders Orders - YOLI KAY NP Procedure Category Date Status Time Basic Metabolic Panel LAB 05/24/24 Verified 04:00 Complete Blood Count LAB 05/24/24 Verified 04:00 Date of Service: May 23, 2024 Billing Provider: YOLI KAY NP Common Visit Codes: 12685-CTRMIVOP CARE 30-74 MIN, [id number] CARE-EACH +30MIN YOLI KAY NP May 23, 2024 15:22
--- NOTE | 2024-05-23 18:09 | DVHPN2 ---
Consult Progress Note Subjective Other Systems: Patient remains chemically sedated and mechanically ventilated Objective vital signs Vital Sign Date Time Temp Pulse Resp B/P (MAP) Pulse Ox O2 Delivery O2 Flow Rate FiO2 05/23/24 17:59 45 05/23/24 17:59 24 96 Mechanical Ventilator+ 05/23/24 17:59 62 05/23/24 17:39 99/57 05/23/24 17:30 97.7 97.7 05/22/24 07:47 0 Total Intake and Output 05/22/24 05/22/24 05/23/24 15:00 23:00 07:00 Intake Total 782.80 ml 959.62 ml 1468.92 ml Output Total 100 ml 600 ml 1000 ml Balance 682.80 ml 359.62 ml 468.92 ml medications Current Medications Medications Dose Ordered Sig/Mindy Route Start Time Stop Time Status Last Admin Dose Admin Norepinephrine Bitartrate 250 ml @ 3.75 mls/hr Q24H IV 05/22/24 09:00 05/22/24 12:44 3.75 MLS/HR Ceftriaxone Sodium 50 ml @ 100 mls/hr DAILY@09 IV 05/22/24 09:00 05/23/24 10:09 100 MLS/HR Methylprednisolone Sodium Succinate 40 mg Q8HR IV 05/22/24 14:00 05/23/24 15:39 40 MG Sodium Chloride 1,000 ml @ 75 mls/hr [id number] IV 05/22/24 08:30 05/23/24 15:40 75 MLS/HR Morphine Sulfate 2 mg Q30MP PRN IV 05/22/24 09:00 UNV Morphine Sulfate 2 mg Q30M PRN IV 05/22/24 09:30 Enoxaparin Sodium 30 mg DAILY SC 05/22/24 10:00 05/23/24 10:09 30 MG Acetaminophen 650 mg Q6HP PRN PO 05/22/24 09:00 Nitroglycerin 0.4 mg Q5MINP PRN SL 05/22/24 09:00 UNV Nitroglycerin 0.4 mg Q5MINP PRN SL 05/22/24 09:00 Propofol 100 ml @ 3.06 mls/hr Q24H IV 05/22/24 13:45 05/23/24 15:42 12.24 MLS/HR Fentanyl Citrate 250 ml @ 2.5 mls/hr Q24H IV 05/22/24 14:45 05/22/24 14:52 2.5 MLS/HR Phenylephrine HCl 250 ml @ 30 mls/hr Q8H20M IV 05/22/24 15:45 Aspirin 81 mg DAILY PO 05/23/24 10:00 05/23/24 10:09 81 MG Atorvastatin Calcium 40 mg HS PO 05/22/24 22:00 Azithromycin 250 ml @ 125 mls/hr DAILY IV 05/23/24 10:00 05/23/24 11:03 125 MLS/HR Albuterol 2.5 mg Q4HR NEB 05/23/24 14:00 05/23/24 13:49 2.5 MG Ipratropium [place] 0.5 mg Q4HR NEB 05/23/24 14:00 05/23/24 13:49 0.5 MG Midazolam HCl 50 ml @ 1 mls/hr Q24H IV 05/23/24 12:15 05/23/24 17:39 9 MLS/HR Examination: GENERAL:Abnormal, LUNGS:Abnormal (Mechanically ventilated), CVS:Normal, NEURO:Abnormal (Chemically sedated) laboratory and microbiology Laboratory Tests 05/23/24 05:45 Test 05/23/24 05:45 Range/Units Serum Glucose 206 H 74-106 mg/dL Problem List/Assessment/Plan Problem List/Assessment/Plan NTSEMI, likely type II secondary to acute hypoxic respiratory failure Coronary artery disease s/p multiple PTCA's X 3 CORDELIA (on ASA) Acute on chronic HFmrEF, NYHA class IV History of myocardial infarction X 2 Hypertension COPD Obstructive sleep apnea without CPAP use Tobacco use Morbid obesity Plan/Recommendation (Dr. Gutierrez): * Echocardiogram reveals EF approximately 45% * Vasopressors for hemodynamic support * Recommend GDMT for CHF when off vasopressors * Single antiplatelet therapy and lipid-lowering agent * Cardiac surveillance * DVT/VTE prophylaxis The patient was seen and examined at bedside with . spoke with the patient's family. At this time, there is no further inpatient cardiac workup indicated at that time. Educated family that the patient should follow up with his straightedge man in the outpatient setting within 1-2 weeks post discharge. Patient's daughter reports he follows up with straightedge man and states that she will schedule a appointment with him prior to discharge. Thank you for allowing us to care for this patient. Please call with any questions or concerns. Please reconsult if needed. Critical care time spent: 38 minutes. This medical document was created using an electronic medical record system with voice recognition software and computerized dictation system. Although this document has been carefully reviewed, there might still be some phonetic and typographical errors. Occasional wrong-word or ``sound-alike substitutions may have occurred due to the inherent limitations of voice recognition software. These areas are purely typographical due to imperfections of the software programs and do not reflect any compromise in the patient's medical care. Please read the chart carefully and recognize, using context, where these substitutions have occurred. Plan discussed with: Daughter, Other (Bedside RN) Date of Service: May 23, 2024 Billing Provider: MAY GUTIERREZ MD Common Visit Codes: [id number] CARE 30-74 MIN RODRÍGUEZ MARION May 23, 2024 18:09
--- NOTE | 2024-05-23 22:12 | DVHPN2 ---
Progress Note - Dictate Date Seen: May 23, 2024 Medical Necessity Reason Pt with a Central, PICC or Fol: Yes The following are medically ne: Garcia Catheter Reason for garcia catheter: Strict I&O Subjective Patient seen and examined at bedside. Sedated, intubated on mechanical ventilator. Overnight events reviewed. vital signs Vital Sign Date Time Temp Pulse Resp B/P (MAP) Pulse Ox O2 Delivery O2 Flow Rate FiO2 05/23/24 21:50 64 24 97/55 (69) 95 45 05/23/24 20:15 97.5 207.5 05/23/24 20:00 Mechanical Ventilator+ 05/22/24 07:47 0 Total Intake and Output 05/22/24 05/22/24 05/23/24 15:00 23:00 07:00 Intake Total 782.80 ml 959.62 ml 1468.92 ml Output Total 100 ml 600 ml 1000 ml Balance 682.80 ml 359.62 ml 468.92 ml medications Current Medications Medications Dose Ordered Sig/Mindy Route Start Time Stop Time Status Last Admin Dose Admin Norepinephrine Bitartrate 250 ml @ 3.75 mls/hr Q24H IV 05/22/24 09:00 05/22/24 12:44 3.75 MLS/HR Ceftriaxone Sodium 50 ml @ 100 mls/hr DAILY@09 IV 05/22/24 09:00 05/23/24 10:09 100 MLS/HR Methylprednisolone Sodium Succinate 40 mg Q8HR IV 05/22/24 14:00 05/23/24 22:04 40 MG Sodium Chloride 1,000 ml @ 75 mls/hr [id number] IV 05/22/24 08:30 05/23/24 15:40 75 MLS/HR Morphine Sulfate 2 mg Q30MP PRN IV 05/22/24 09:00 UNV Morphine Sulfate 2 mg Q30M PRN IV 05/22/24 09:30 Enoxaparin Sodium 30 mg DAILY SC 05/22/24 10:00 05/23/24 10:09 30 MG Acetaminophen 650 mg Q6HP PRN PO 05/22/24 09:00 Nitroglycerin 0.4 mg Q5MINP PRN SL 05/22/24 09:00 UNV Nitroglycerin 0.4 mg Q5MINP PRN SL 05/22/24 09:00 Propofol 100 ml @ 3.06 mls/hr Q24H IV 05/22/24 13:45 05/23/24 15:42 12.24 MLS/HR Fentanyl Citrate 250 ml @ 2.5 mls/hr Q24H IV 05/22/24 14:45 05/22/24 14:52 2.5 MLS/HR Phenylephrine HCl 250 ml @ 30 mls/hr Q8H20M IV 05/22/24 15:45 Aspirin 81 mg DAILY PO 05/23/24 10:00 05/23/24 10:09 81 MG Atorvastatin Calcium 40 mg HS PO 05/22/24 22:00 05/23/24 22:02 40 MG Azithromycin 250 ml @ 125 mls/hr DAILY IV 05/23/24 10:00 05/23/24 11:03 125 MLS/HR Albuterol 2.5 mg Q4HR NEB 05/23/24 14:00 05/23/24 21:56 2.5 MG Ipratropium [place] 0.5 mg Q4HR NEB 05/23/24 14:00 05/23/24 21:56 0.5 MG Midazolam HCl 50 ml @ 1 mls/hr Q24H IV 05/23/24 12:15 05/23/24 17:39 9 MLS/HR objective Gen.: Patient lying in bed in medical ICU. Sedated, intubated on mechanical ventilator. Head: Normocephalic, atraumatic. Eyes: PERRLA. Ears: Normal external anatomy. Throat: Endotracheal tube and orogastric tube in place. Neck: Supple, trachea midline. Chest: Transmitted breath sounds bilaterally. Decreased air entry bilaterally. No wheezing. Bibasilar crackles. Cardiovascular: Positive S1, positive S2. Regular rate and rhythm. Abdomen: Positive bowel sounds in all 4 quadrants. Soft, nontender, nondistended. : Garcia in place. Normal external genitalia. Rectal: Deferred. Skin: Warm, dry. Intact. Extremities: 2+ radial pulses bilaterally. No lower extremity edema. Neuro: Sedated. laboratory and microbiology Laboratory Tests 05/23/24 05:45 Test 05/23/24 05:45 Range/Units Serum Glucose 206 H 74-106 mg/dL Assessment/Plan Impression: Acute hypoxic respiratory failure Acute hypercarbic respiratory failure On mechanical ventilator COPD exacerbation Hx of nicotine dependence Morbid obesity, BMI 40 Atelectasis Events: Remains on vent support Vent changed to AC mode; RR 24, VT 450, PEEP 5, FiO2 45% Sedated on Propofol, Fentanyl, Versed On pressors (Levophed) for hemodynamic support Titrate to keep mean arterial pressure greater than 65 mmHg. CXR reviewed, demonstrates mild bilateral opacities, likely atelectasis. Devices in place. Continue bronchodilators. Continue antibiotics. Continue steroids Taper sedation Plan for CPAP in AM - PS 8, PEEP 5. OK to increase PS to max 20 cmH2O to achieve tidal volume 400-500 mL Updated family at bedside. Labs and imaging reviewed. Rest of plan as noted below. Plan: s/p intubation on mechanical ventilator. CXR image and report reviewed. Devices in place. Pulmonary vascular congestion. No pneumothorax. No pleural effusion. Vent settings: AC mode; RR 24, VT 450, PEEP 5, FiO2 45% Continuous med neb ordered. Titrate FIO2 to keep O2 saturation above 90%. VAP bundle. Daily ABG and CXR while intubated Sedate for ventilator synchrony Continue bronchodilators. Continue antibiotics. F/u cultures. On pressors (Levophed) for hemodynamic support Titrate to keep mean arterial pressure greater than 65 mmHg. Monitor renal function Monitor electrolytes. Supplement as necessary. Monitor ins and outs. Maintain euvolemia. Morbid Obesity - complicates all care GI prophylaxis. DVT prophylaxis. Prognosis: Poor given patient's multiple co-morbidities. Condition: Critical Rest of plan per hospitalist and other consultants. A total of 35 minutes of critical care time was spent reviewing the patient record, examining the patient, making a diagnostic and therapeutic plan, discussing this plan with the medical personnel, following up on diagnostic studies and following the patient for clinical stability excluding any and all procedures. At least 50% of this time was spent in direct, [id number] contact. Thank you, RAFA Thurman, for allowing me to participate in this patient's care. Further recommendations will depend on the patient's clinical course. Please do not hesitate to contact me if you have any questions or concerns. This medical document was created using an electronic medical record system with [employer] system. Although these documentations are being carefully reviewed, there may still be some phonetic and typographical changes. The errors are purely typographical, due to imperfection on the software program, and do not reflect any compromise in the patient's medical care. Plan discussed with: Other (MALICK Chavez) Critical Care Time(min): 35 RYAN ROMERO MD May 23, 2024 22:12
[2024-05-24] VITALS (53 sets, daily range): BP systolic 95–159; BP diastolic 54–85; PULSE 55–85; RESP 19–24; TEMP 97.5–98.1; O2SAT 90–98
--- NOTE | 2024-05-24 06:29 | DVH ---
CHEST RADIOGRAPH Indication: Pt intubated. Technique: Single frontal view of the chest was obtained Comparison: XY CHEST PORTABLE on DOS: 05/23/24, XY CHEST PORTABLE on DOS: 05/22/24, XY CHEST PORTABLE o n DOS: 05/22/24, XY CHEST PORTABLE on DOS: 05/22/24, XY CHEST XRAY 1 VIEW on DOS: 06/16/23, XY CHEST PORT ABLE on DOS: 05/23/24 FINDINGS: Lines and Tubes: The endotracheal tube terminates 3.3 cm above the karoline. Right central venous laith ter terminates in the superior vena cava. The enteric tube courses below the left hemidiaphragm and t he tip extends outside the field of view. Lungs: Mild bilateral opacities. Pleura: No effusion. No pneumothorax. Cardiomediastinal contours: Unremarkable Bones: No acute osseous abnormality. IMPRESSION: 1. Bilateral opacities which may reflect atelectasis.
[2024-05-24 06:33] LABS: Potassium 4.4 mmol/L (3.5-5.1)
[2024-05-24 06:34] LABS: Anion Gap 7 (5-15); Carbon Dioxide 25 mmol/L (20-31)
[2024-05-24 06:39] LABS: BUN/Creatinine Ratio 15.9 (10.0-20.0); Blood Urea Nitrogen 17 mg/dL (9-23)
[2024-05-24 06:43] LABS: Chloride 113 mmol/L (98-107); Glucose 168 mg/dL (74-106); Sodium 145 mmol/L (136-145)
[2024-05-24 07:46] LABS: Base Excess -4.8 mmol/L (-2.0-3.0)
[2024-05-24 07:50] LABS: Basophils # (auto) 0 10 ^3/uL (0-0.2); Basophils % (auto) 0.1 % (0.0-2.0); Eosinophils # (auto) 0 10 ^3/uL (0-0.8); Hematocrit 42.9 % (41.0-53.0); Hemoglobin 14.2 g/dL (13.5-17.5); Lymphocytes # (auto) 0.4 10 ^3/uL (0.4-5.4); Lymphocytes % (auto) 1.9 % (10.0-50.0); Mean Corpuscular Hemoglobin 30.7 pg (28.0-32.0); Mean Corpuscular Hgb Conc. 33.2 g/dL (32.0-36.0); Mean Corpuscular Volume 92.5 fL (80.0-100.0); Monocytes # (auto) 0.6 10 ^3/uL (0-1.3); Monocytes % (auto) 2.9 % (0.0-12.0); Neutrophils # (auto) 18.9 10 ^3/uL (1.6-8.6); Neutrophils % (auto) 95.1 % (37.0-80.0); Platelet Count (auto) 214 10^3/uL (140-450); Red Blood Cells 4.63 10^6/uL (4.5-5.90); Red Cell Distribution Width 13.8 % (11.8-14.3); White Blood Cell 19.9 10^3/uL (4.4-10.8)
[2024-05-24] MEDS ORDERED: DUPI1INJ SC (10:44)
--- NOTE | 2024-05-24 16:36 | DVHPN2 ---
Subjective Patient intubated and sedated. Reviewed: Care Plan, H&P, Labs, Medications Changes from previous H/P or p: No Changes General: Per HPI Eyes: No Pain, No Vision change, No Conjunctivae inflammation, No Eyelid inflammation, No Other, No Redness ENT: No Ear pain, No Ear discharge, No Nose pain, No Nose discharge, No Nose congestion, No Mouth pain, No Mouth swelling, No Throat pain, No Throat swelling, No Other Cardiovascular: No Chest Pain, No Palpitations, No Orthopnea, No Paroxysmal Noc. Dyspnea, No Edema, No Lt Headedness; Other (Chest tightness) Respiratory: No Cough, No Dry; Shortness of breath; No SOB with excertion, No Wheezing, No Hemoptysis, No Pleuritic Pain, No Sputum, No Other Gastrointestinal: No Nausea, No Vomiting, No Abdominal Pain, No Diarrhea, No Constipation, No Melena, No Hematochezia, No Other Genitourinary: No Dysuria, No Frequency, No Incontinence, No Hematuria, No Retention, No Other Musculoskeletal: No other, No neck pain, No shoulder pain, No arm pain, No back pain, No hand pain, No leg pain, No foot pain Skin: No Rash, No Lesions, No Jaundice, No Bruising, No Other Objective Vitals Vital Signs Date Time Temp Pulse Resp B/P (MAP) Pulse Ox O2 Delivery O2 Flow Rate FiO2 05/24/24 16:00 24 96 Mechanical Ventilator+ 45 45 05/24/24 16:00 68 05/24/24 15:51 114/70 (85) 05/24/24 12:30 96.8 96.8 05/22/24 07:47 0 Intake/Output Intake and Output 05/24/24 07:00 Intake Total 3030.342 ml Output Total 1450 ml Balance 1580.342 ml Intake Oral 50 ml IV Total 2980.342 ml Output Urine Total 1450 ml General Appearance: Alert, Oriented X3, Cooperative, No acute distress HEENT: Atraumatic, PERRLA Lungs: Clear to auscultation, Normal air movement, Other (Mechanical ventilation) Cardiovascular: Normal S1, Normal S2 Abdomen: Normal bowel sounds, Soft, No tenderness, No hepatospenomegaly Genitourinary: No Apparent Abnormalities (Aguero catheter) Musculoskeletal: Other (Unable to assess) Skin: Dry, Intact Psych/Mental Status: Other (Unable to assess) Medications Current Medications Medications Dose Ordered Sig/Mindy Route Start Time Stop Time Status Last Admin Dose Admin Norepinephrine Bitartrate 250 ml @ 3.75 mls/hr Q24H IV 05/22/24 09:00 05/23/24 23:15 3.75 MLS/HR Ceftriaxone Sodium 50 ml @ 100 mls/hr DAILY@09 IV 05/22/24 09:00 05/24/24 10:42 100 MLS/HR Methylprednisolone Sodium Succinate 40 mg Q8HR IV 05/22/24 14:00 05/24/24 14:58 40 MG Sodium Chloride 1,000 ml @ 75 mls/hr [id number] IV 05/22/24 08:30 05/24/24 14:54 75 MLS/HR Morphine Sulfate 2 mg Q30MP PRN IV 05/22/24 09:00 UNV Morphine Sulfate 2 mg Q30M PRN IV 05/22/24 09:30 Enoxaparin Sodium 30 mg DAILY SC 05/22/24 10:00 05/24/24 10:41 30 MG Acetaminophen 650 mg Q6HP PRN PO 05/22/24 09:00 Nitroglycerin 0.4 mg Q5MINP PRN SL 05/22/24 09:00 UNV Nitroglycerin 0.4 mg Q5MINP PRN SL 05/22/24 09:00 Propofol 100 ml @ 3.06 mls/hr Q24H IV 05/22/24 13:45 05/24/24 13:25 12.24 MLS/HR Fentanyl Citrate 250 ml @ 2.5 mls/hr Q24H IV 05/22/24 14:45 05/24/24 15:05 2.5 MLS/HR Phenylephrine HCl 250 ml @ 30 mls/hr Q8H20M IV 05/22/24 15:45 05/24/24 00:00 30 MLS/HR Aspirin 81 mg DAILY PO 05/23/24 10:00 05/24/24 10:41 81 MG Atorvastatin Calcium 40 mg HS PO 05/22/24 22:00 05/23/24 22:02 40 MG Azithromycin 250 ml @ 125 mls/hr DAILY IV 05/23/24 10:00 05/24/24 10:54 125 MLS/HR Albuterol 2.5 mg Q4HR NEB 1/15/25 14:00 05/24/24 14:40 2.5 MG Ipratropium [place] 0.5 mg Q4HR NEB 05/23/24 14:00 05/24/24 14:40 0.5 MG Midazolam HCl 50 ml @ 1 mls/hr Q24H IV 05/23/24 12:15 05/24/24 15:06 5 MLS/HR Laboratory Results Laboratory Tests 05/24/24 05:30 Chemistry Test 05/24/24 05:30 Calcium Level 9.0 mg/dL (8.7-10.4) Urinalysis Test 05/22/24 05:01 Urine Color Light-yellow (Yellow) Urine Clarity Clear (Clear) Urine pH 5.5 (5.0-9.0) Urine Specific [place] 1.011 (1.001-1.035) Urine Protein Trace (Negative) H Urine Ketones Negative (Negative) Urine Blood 1+ /uL (Negative) H Urine Nitrite Negative (Negative) Urine Bilirubin Negative (Negative) Urine Urobilinogen Normal mg/dL (Negative) Urine Leukocyte Esterase Negative /uL (Negative) Urine RBC 2 /hpf (0 - 3) Urine WBC 1 /hpf (0 - 3) Urine Squamous Epithelial Cells None seen /hpf (<5) Urine Bacteria None seen /hpf (None Seen) Urine Glucose Normal mg/dL (Normal) Blood Gas Results Test 05/24/24 07:40 Arterial Blood pH 7.354 (7.350-7.450) FiO2 % 45.0 Microbiology Microbiology Date/Time Source Procedure Growth Status 05/22/24 14:50 Blood Blood Culture - Preliminary NO GROWTH AFTER 48 HOURS OF INCUBATION. Resulted 05/22/24 14:27 Nose MRSA Screen - Final Complete 05/22/24 09:12 Sputum Gram Stain - Final Resulted 05/22/24 09:12 Sputum Respiratory Culture - Preliminary Resulted Labs and/or images reviewed: Labs reviewed by me, Image(s) reviewed by me Assessment/Plan Assessment/Plan Impression: -acute hypoxic respiratory failure mechanical ventilation -COPD with exacerbation -leukocytosis, rule out sepsis -obesity -history of CAD -history of nicotine dependence -NSTEMI type 2 secondary to respiratory failure -acute kidney injury, rule out vasomotor nephropathy -right middle and lower lobe atelectasis Plan: -events: Patient continues to be heavily sedated. Discussed with nurse to weaned sedation and perform CPAP trial. -continue bronchodilators, Pulmicort -continue IV hydration -continue current antibiotic therapy -PUD, DVT prophylaxis -repeat labs, chest x-ray in a.m. -long discussion made with the patient's family regarding plan of care. All questions answered. Critical care time spent with patient discussing and formulating plan of care: 90 minutes. This does not include time spent performing procedures. This medical document was created using an electronic medical record system with [employer] dictation system. Although this document has been carefully reviewed, there may still be some phonetic and typographical errors. These areas are purely typographical due to imperfections of the software programs, and do not reflect any compromise in the patient's medical care. Plan discussed with: Patient, Other (RN) My Orders Orders - YOLI KAY NP Procedure Category Date Status Time Cpap/Sed Vacation Med ORDERS 05/24/24 Transmitted Weaning 10:56 Date of Service: May 24, 2024 Billing Provider: YOLI KAY NP Common Visit Codes: [id number] CARE 30-74 MIN YOLI KAY NP May 24, 2024 16:36
[2024-05-24] MEDS: PHENYLEPHRINE IV 250 ML IV SCH (21:00)
[2024-05-24] MEDS: methylPREDNISolone SOD SUCC 40 MG/ML VL IV SCH (21:21)
--- NOTE | 2024-05-24 21:39 | DVHPN2 ---
Progress Note - Dictate Date Seen: May 24, 2024 Medical Necessity Reason Pt with a Central, PICC or Fol: Yes The following are medically ne: Garcia Catheter Reason for gacria catheter: Strict I&O Subjective Patient seen and examined at bedside. Sedated, intubated on mechanical ventilator. Overnight events reviewed. vital signs Vital Sign Date Time Temp Pulse Resp B/P (MAP) Pulse Ox O2 Delivery O2 Flow Rate FiO2 05/24/24 20:45 159/84 05/24/24 20:06 59 24 96 40 05/24/24 18:00 Mechanical Ventilator+ 05/24/24 16:20 97.9 97.9 05/22/24 07:47 0 Total Intake and Output 05/23/24 05/23/24 05/24/24 15:00 23:00 07:00 Intake Total 1100.42 ml 853.402 ml 1076.52 ml Output Total 350 ml 1100 ml Balance 1100.42 ml 503.402 ml -23.48 ml medications Current Medications Medications Dose Ordered Sig/Mindy Route Start Time Stop Time Status Last Admin Dose Admin Norepinephrine Bitartrate 250 ml @ 3.75 mls/hr Q24H IV 05/22/24 09:00 05/23/24 23:15 3.75 MLS/HR Ceftriaxone Sodium 50 ml @ 100 mls/hr DAILY@09 IV 05/22/24 09:00 05/24/24 10:42 100 MLS/HR Sodium Chloride 1,000 ml @ 75 mls/hr [id number] IV 05/22/24 08:30 05/24/24 14:54 75 MLS/HR Morphine Sulfate 2 mg Q30MP PRN IV 05/22/24 09:00 UNV Morphine Sulfate 2 mg Q30M PRN IV 05/22/24 09:30 Enoxaparin Sodium 30 mg DAILY SC 05/22/24 10:00 05/24/24 10:41 30 MG Acetaminophen 650 mg Q6HP PRN PO 05/22/24 09:00 Nitroglycerin 0.4 mg Q5MINP PRN SL 05/22/24 09:00 UNV Nitroglycerin 0.4 mg Q5MINP PRN SL 05/22/24 09:00 Propofol 100 ml @ 3.06 mls/hr Q24H IV 05/22/24 13:45 05/24/24 20:45 12.24 MLS/HR Fentanyl Citrate 250 ml @ 2.5 mls/hr Q24H IV 05/22/24 14:45 05/24/24 15:05 2.5 MLS/HR Aspirin 81 mg DAILY PO 05/23/24 10:00 05/24/24 10:41 81 MG Atorvastatin Calcium 40 mg HS PO 05/22/24 22:00 05/23/24 22:02 40 MG Azithromycin 250 ml @ 125 mls/hr DAILY IV 05/23/24 10:00 05/24/24 10:54 125 MLS/HR Albuterol 2.5 mg Q4HR NEB 05/23/24 14:00 05/24/24 18:17 2.5 MG Ipratropium [place] 0.5 mg Q4HR NEB 05/23/24 14:00 05/24/24 18:17 0.5 MG Midazolam HCl 50 ml @ 1 mls/hr Q24H IV 05/23/24 12:15 05/24/24 15:06 5 MLS/HR Methylprednisolone Sodium Succinate 40 mg BID IV 05/24/24 22:00 05/24/24 21:21 40 MG Phenylephrine HCl 250 ml @ 30 mls/hr Q8H20M IV 05/24/24 21:00 objective Gen.: Patient lying in bed in medical ICU. Sedated, intubated on mechanical ventilator. Head: Normocephalic, atraumatic. Eyes: PERRLA. Ears: Normal external anatomy. Throat: Endotracheal tube and orogastric tube in place. Neck: Supple, trachea midline. Chest: Transmitted breath sounds bilaterally. Decreased air entry bilaterally. No wheezing. Bibasilar crackles. Cardiovascular: Positive S1, positive S2. Regular rate and rhythm. Abdomen: Positive bowel sounds in all 4 quadrants. Soft, nontender, nondistended. : Garcia in place. Normal external genitalia. Rectal: Deferred. Skin: Warm, dry. Intact. Extremities: 2+ radial pulses bilaterally. No lower extremity edema. Neuro: Sedated. laboratory and microbiology Laboratory Tests 05/24/24 05:30 Test 05/24/24 05:30 Range/Units Serum Glucose 168 H 74-106 mg/dL Assessment/Plan Impression: Acute hypoxic respiratory failure Acute hypercarbic respiratory failure On mechanical ventilator COPD exacerbation Hx of nicotine dependence Morbid obesity, BMI 40 Atelectasis Events: Remains on vent support Vent changed to AC mode; RR 24, VT 450, PEEP 5, FiO2 45 -->40% Sedated on Propofol, Fentanyl, Versed Off Levophed, hemodynamically stable CXR reviewed, demonstrates mild bilateral opacities, likely atelectasis. Devices in place. Continue bronchodilators. Continue antibiotics. Continue steroids IV fluids at 75 ml/hr Taper sedation Plan for CPAP in AM - PS 8, PEEP 5. OK to increase PS to max 20 cmH2O to achieve tidal volume 400-500 mL Labs and imaging reviewed. Rest of plan as noted below. Plan: s/p intubation on mechanical ventilator. CXR image and report reviewed. Devices in place. Pulmonary vascular congestion. No pneumothorax. No pleural effusion. Vent settings: AC mode; RR 24, VT 450, PEEP 5, FiO2 40% Continuous med neb ordered. Titrate FIO2 to keep O2 saturation above 90%. VAP bundle. Daily ABG and CXR while intubated Sedate for ventilator synchrony Continue bronchodilators. Continue antibiotics. F/u cultures. On pressors (Levophed) for hemodynamic support Titrate to keep mean arterial pressure greater than 65 mmHg. Monitor renal function Monitor electrolytes. Supplement as necessary. Monitor ins and outs. Maintain euvolemia. Morbid Obesity - complicates all care GI prophylaxis. DVT prophylaxis. Prognosis: Poor given patient's multiple co-morbidities. Condition: Critical Rest of plan per hospitalist and other consultants. A total of 35 minutes of critical care time was spent reviewing the patient record, examining the patient, making a diagnostic and therapeutic plan, discussing this plan with the medical personnel, following up on diagnostic studies and following the patient for clinical stability excluding any and all procedures. At least 50% of this time was spent in direct, [id number] contact. Thank you, RAFA Thurman, for allowing me to participate in this patient's care. Further recommendations will depend on the patient's clinical course. Please do not hesitate to contact me if you have any questions or concerns. This medical document was created using an electronic medical record system with [employer] system. Although these documentations are being carefully reviewed, there may still be some phonetic and typographical changes. The errors are purely typographical, due to imperfection on the software program, and do not reflect any compromise in the patient's medical care. Plan discussed with: Other (MALICK Mace) Critical Care Time(min): 35 RYAN ROMERO MD May 24, 2024 21:39
[2024-05-25] VITALS (109 sets, daily range): BP systolic 93–179; BP diastolic 57–100; PULSE 57–93; RESP 14–27; TEMP 97.9–100; O2SAT 92–98
[2024-05-25 03:55] LABS: Basophils # (auto) 0.2 10 ^3/uL (0-0.2); Basophils % (auto) 1.3 % (0.0-2.0); Eosinophils # (auto) 0 10 ^3/uL (0-0.8); Eosinophils % (auto) 0.1 % (0.0-7.0); Hematocrit 43.5 % (41.0-53.0); Hemoglobin 14.4 g/dL (13.5-17.5); Lymphocytes # (auto) 0.5 10 ^3/uL (0.4-5.4); Lymphocytes % (auto) 2.7 % (10.0-50.0); Mean Corpuscular Hemoglobin 30.9 pg (28.0-32.0); Mean Corpuscular Hgb Conc. 33.1 g/dL (32.0-36.0); Mean Corpuscular Volume 93.1 fL (80.0-100.0); Monocytes # (auto) 0.5 10 ^3/uL (0-1.3); Neutrophils # (auto) 16.6 10 ^3/uL (1.6-8.6); Neutrophils % (auto) 92.9 % (37.0-80.0); Nucleated Red Blood Cells % 0.2 %; Platelet Count (auto) 211 10^3/uL (140-450); Red Blood Cells 4.67 10^6/uL (4.5-5.90); Red Cell Distribution Width 13.9 % (11.8-14.3); White Blood Cell 17.9 10^3/uL (4.4-10.8)
[2024-05-25 03:59] LABS: Anion Gap 5 (5-15); Carbon Dioxide 25 mmol/L (20-31); Potassium 5.1 mmol/L (3.5-5.1)
[2024-05-25 04:00] LABS: Calcium 8.7 mg/dL (8.7-10.4)
[2024-05-25 04:03] LABS: Chloride 116 mmol/L (98-107); Sodium 146 mmol/L (136-145)
[2024-05-25 04:05] LABS: BUN/Creatinine Ratio 21.1 (10.0-20.0); Blood Urea Nitrogen 20 mg/dL (9-23)
[2024-05-25 04:21] LABS: Glucose 176 mg/dL (74-106)
--- NOTE | 2024-05-25 06:16 | DVH ---
CHEST RADIOGRAPH Indication: Line assessment, pna Technique: Single frontal view of the chest was obtained Comparison: XY CHEST XRAY 1 VIEW on DOS: 05/24/24, XY CHEST PORTABLE on DOS: 05/23/24, XY CHEST PORTABL E on DOS: 05/22/24, XY CHEST PORTABLE on DOS: 05/22/24, XY CHEST PORTABLE on DOS: 05/22/24, XY CHEST XRA Y 1 VIEW on DOS: 05/24/24 FINDINGS: Lines and Tubes: The endotracheal tube terminates 3.3 cm above the karoline. Right central venous laith ter terminates in the superior vena cava. NG tube in stomach Lungs: Mild bilateral opacities. Pleura: No effusion. No pneumothorax. Cardiomediastinal contours: Unremarkable Bones: No acute osseous abnormality. IMPRESSION: 1. Bilateral opacities which may reflect atelectasis.
[2024-05-25 06:22] LABS: Base Excess -2.7 mmol/L (-2.0-3.0)
--- NOTE | 2024-05-25 08:30 | DVHPN2 ---
Subjective Patient intubated and sedated. Reviewed: Care Plan, H&P, Labs, Medications Changes from previous H/P or p: No Changes General: Per HPI Eyes: No Pain, No Vision change, No Conjunctivae inflammation, No Eyelid inflammation, No Other, No Redness ENT: No Ear pain, No Ear discharge, No Nose pain, No Nose discharge, No Nose congestion, No Mouth pain, No Mouth swelling, No Throat pain, No Throat swelling, No Other Cardiovascular: No Chest Pain, No Palpitations, No Orthopnea, No Paroxysmal Noc. Dyspnea, No Edema, No Lt Headedness; Other (Chest tightness) Respiratory: No Cough, No Dry; Shortness of breath; No SOB with excertion, No Wheezing, No Hemoptysis, No Pleuritic Pain, No Sputum, No Other Gastrointestinal: No Nausea, No Vomiting, No Abdominal Pain, No Diarrhea, No Constipation, No Melena, No Hematochezia, No Other Genitourinary: No Dysuria, No Frequency, No Incontinence, No Hematuria, No Retention, No Other Musculoskeletal: No other, No neck pain, No shoulder pain, No arm pain, No back pain, No hand pain, No leg pain, No foot pain Skin: No Rash, No Lesions, No Jaundice, No Bruising, No Other Objective Vitals Vital Signs Date Time Temp Pulse Resp B/P (MAP) Pulse Ox O2 Delivery O2 Flow Rate FiO2 05/25/24 07:56 87 25 147/87 (107) 98 40 05/25/24 06:00 Mechanical Ventilator+ 05/25/24 06:00 98.1 98.1 Intake/Output Intake and Output 05/25/24 07:00 Intake Total 2250.66 ml Output Total 1350 ml Balance 900.66 ml Intake Oral 0 ml IV Total 2250.66 ml Output Urine Total 1350 ml General Appearance: No acute distress HEENT: Atraumatic, PERRLA Lungs: Clear to auscultation, Normal air movement, Other (Mechanical ventilation) Cardiovascular: Normal S1, Normal S2 Abdomen: Normal bowel sounds, Soft, No tenderness, No hepatospenomegaly Genitourinary: No Apparent Abnormalities (Aguero catheter) Musculoskeletal: Other (Unable to assess) Skin: Dry, Intact Psych/Mental Status: Other (Unable to assess) Medications Current Medications Medications Dose Ordered Sig/Mindy Route Start Time Stop Time Status Last Admin Dose Admin Norepinephrine Bitartrate 250 ml @ 3.75 mls/hr Q24H IV 05/22/24 09:00 05/23/24 23:15 3.75 MLS/HR Ceftriaxone Sodium 50 ml @ 100 mls/hr DAILY@09 IV 05/22/24 09:00 05/25/24 08:24 100 MLS/HR Sodium Chloride 1,000 ml @ 75 mls/hr [id number] IV 05/22/24 08:30 05/25/24 02:44 75 MLS/HR Morphine Sulfate 2 mg Q30MP PRN IV 05/22/24 09:00 UNV Morphine Sulfate 2 mg Q30M PRN IV 05/22/24 09:30 Enoxaparin Sodium 30 mg DAILY SC 05/22/24 10:00 05/24/24 10:41 30 MG Acetaminophen 650 mg Q6HP PRN PO 05/22/24 09:00 Nitroglycerin 0.4 mg Q5MINP PRN SL 05/22/24 09:00 UNV Nitroglycerin 0.4 mg Q5MINP PRN SL 05/22/24 09:00 Propofol 100 ml @ 3.06 mls/hr Q24H IV 05/22/24 13:45 05/25/24 02:32 12.24 MLS/HR Fentanyl Citrate 250 ml @ 2.5 mls/hr Q24H IV 05/22/24 14:45 05/24/24 15:05 2.5 MLS/HR Aspirin 81 mg DAILY PO 05/23/24 10:00 05/24/24 10:41 81 MG Atorvastatin Calcium 40 mg HS PO 05/22/24 22:00 05/24/24 22:00 40 MG Azithromycin 250 ml @ 125 mls/hr DAILY IV 05/23/24 10:00 05/24/24 10:54 125 MLS/HR Albuterol 2.5 mg Q4HR NEB 05/23/24 14:00 05/25/24 06:16 2.5 MG Ipratropium [place] 0.5 mg Q4HR NEB 05/23/24 14:00 05/25/24 06:16 0.5 MG Midazolam HCl 50 ml @ 1 mls/hr Q24H IV 05/23/24 12:15 05/25/24 02:40 4 MLS/HR Methylprednisolone Sodium Succinate 40 mg BID IV 05/24/24 22:00 05/24/24 21:21 40 MG Phenylephrine HCl 250 ml @ 30 mls/hr Q8H20M IV 05/24/24 21:00 Laboratory Results Laboratory Tests 05/25/24 03:21 Chemistry Test 05/25/24 03:21 Calcium Level 8.7 mg/dL (8.7-10.4) Urinalysis Test 05/22/24 05:01 Urine Color Light-yellow (Yellow) Urine Clarity Clear (Clear) Urine pH 5.5 (5.0-9.0) Urine Specific [place] 1.011 (1.001-1.035) Urine Protein Trace (Negative) H Urine Ketones Negative (Negative) Urine Blood 1+ /uL (Negative) H Urine Nitrite Negative (Negative) Urine Bilirubin Negative (Negative) Urine Urobilinogen Normal mg/dL (Negative) Urine Leukocyte Esterase Negative /uL (Negative) Urine RBC 2 /hpf (0 - 3) Urine WBC 1 /hpf (0 - 3) Urine Squamous Epithelial Cells None seen /hpf (<5) Urine Bacteria None seen /hpf (None Seen) Urine Glucose Normal mg/dL (Normal) Blood Gas Results Test 05/25/24 06:18 Arterial Blood pH 7.326 (7.350-7.450) FiO2 % 40.0 Microbiology Microbiology Date/Time Source Procedure Growth Status 05/22/24 14:50 Blood Blood Culture - Preliminary NO GROWTH AFTER 48 HOURS OF INCUBATION. Resulted 05/22/24 14:27 Nose MRSA Screen - Final Complete 05/22/24 09:12 Sputum Gram Stain - Final Resulted 05/22/24 09:12 Sputum Respiratory Culture - Preliminary Resulted Labs and/or images reviewed: Labs reviewed by me, Image(s) reviewed by me Assessment/Plan Assessment/Plan Impression: -acute hypoxic respiratory failure mechanical ventilation -COPD with exacerbation -leukocytosis, rule out sepsis -obesity -history of CAD -history of nicotine dependence -NSTEMI type 2 secondary to respiratory failure -acute kidney injury, rule out vasomotor nephropathy -right middle and lower lobe atelectasis Plan: -events: Patient was still heavily sedated. Plans for spontaneous breathing trial once patient awakens. -pulse dose of IV Lasix. -continue bronchodilators, Pulmicort -continue IV hydration -continue current antibiotic therapy -PUD, DVT prophylaxis -repeat labs, chest x-ray in a.m. -long discussion made with the patient's family regarding plan of care. All questions answered. Critical care time spent with patient discussing and formulating plan of care: 90 minutes. This does not include time spent performing procedures. This medical document was created using an electronic medical record system with [employer] system. Although this document has been carefully reviewed, there may still be some phonetic and typographical errors. These areas are purely typographical due to imperfections of the software programs, and do not reflect any compromise in the patient's medical care. Plan discussed with: Patient, Other (RN) My Orders Orders - YOLI KAY NP Procedure Category Date Status Time Cpap/Sed Vacation Med ORDERS 05/24/24 Transmitted Weaning 10:56 Methylprednisolone PHA 05/24/24 In Process Sod Succ (Solu Medrol 22:00 Cpap/Sed Vacation Med ORDERS 05/24/24 Transmitted Weaning 16:33 Cpap Trial For Am ORDERS 05/24/24 Transmitted 16:33 Chest Portable XY 05/25/24 Resulted 04:00 Abg W/ Co-Ox RT 05/25/24 Logged 04:00 Basic Metabolic Panel LAB 05/26/24 Verified 05:00 Basic Metabolic Panel LAB 05/27/24 Verified 05:00 Basic Metabolic Panel LAB 05/28/24 Verified 05:00 Complete Blood Count LAB 05/26/24 Verified 05:00 Complete Blood Count LAB 05/27/24 Verified 05:00 Complete Blood Count LAB 05/28/24 Verified 05:00 Date of Service: May 25, 2024 Billing Provider: YOLI KAY NP Common Visit Codes: [id number] CARE 30-74 MIN YOLI KAY NP May 25, 2024 08:30
[2024-05-25] MEDS: FUROSEMIDE 40 MG/4 ML VIAL IV ONE (10:46)
--- NOTE | 2024-05-25 23:26 | DVHPN2 ---
Progress Note - Dictate Date Seen: May 25, 2024 Medical Necessity Reason Pt with a Central, PICC or Fol: Yes The following are medically ne: Garcia Catheter Reason for garcia catheter: Strict I&O Subjective Patient seen and examined at bedside. Intubated on mechanical ventilator. Overnight events reviewed. vital signs Vital Sign Date Time Temp Pulse Resp B/P (MAP) Pulse Ox O2 Delivery O2 Flow Rate FiO2 05/25/24 22:45 100.0 71 22 150/82 (104) 94 100.0 05/25/24 22:18 40 05/25/24 22:00 Mechanical Ventilator+ Total Intake and Output 05/24/24 05/24/24 05/25/24 14:59 22:59 06:59 Intake Total 772.06 ml 817.18 ml 668.92 ml Output Total 850 ml 500 ml Balance 772.06 ml -32.82 ml 168.92 ml medications Current Medications Medications Dose Ordered Sig/Mindy Route Start Time Stop Time Status Last Admin Dose Admin Norepinephrine Bitartrate 250 ml @ 3.75 mls/hr Q24H IV 05/22/24 09:00 05/23/24 23:15 3.75 MLS/HR Ceftriaxone Sodium 50 ml @ 100 mls/hr DAILY@09 IV 05/22/24 09:00 05/25/24 08:24 100 MLS/HR Sodium Chloride 1,000 ml @ 75 mls/hr [id number] IV 05/22/24 08:30 05/25/24 18:44 75 MLS/HR Morphine Sulfate 2 mg Q30MP PRN IV 05/22/24 09:00 UNV Morphine Sulfate 2 mg Q30M PRN IV 05/22/24 09:30 Enoxaparin Sodium 30 mg DAILY SC 05/22/24 10:00 05/25/24 10:55 30 MG Acetaminophen 650 mg Q6HP PRN PO 05/22/24 09:00 Nitroglycerin 0.4 mg Q5MINP PRN SL 05/22/24 09:00 UNV Nitroglycerin 0.4 mg Q5MINP PRN SL 05/22/24 09:00 Propofol 100 ml @ 3.06 mls/hr Q24H IV 05/22/24 13:45 05/25/24 02:32 12.24 MLS/HR Fentanyl Citrate 250 ml @ 2.5 mls/hr Q24H IV 05/22/24 14:45 05/24/24 15:05 2.5 MLS/HR Aspirin 81 mg DAILY PO 05/23/24 10:00 05/25/24 10:55 81 MG Atorvastatin Calcium 40 mg HS PO 05/22/24 22:00 05/25/24 21:57 40 MG Azithromycin 250 ml @ 125 mls/hr DAILY IV 05/23/24 10:00 05/25/24 10:54 125 MLS/HR Albuterol 2.5 mg Q4HR NEB 05/23/24 14:00 05/25/24 22:17 2.5 MG Ipratropium [place] 0.5 mg Q4HR NEB 05/23/24 14:00 05/25/24 22:17 0.5 MG Midazolam HCl 50 ml @ 1 mls/hr Q24H IV 05/23/24 12:15 05/25/24 02:40 4 MLS/HR Methylprednisolone Sodium Succinate 40 mg BID IV 05/24/24 22:00 05/25/24 21:57 40 MG Phenylephrine HCl 250 ml @ 30 mls/hr Q8H20M IV 05/24/24 21:00 Dexmedetomidine HCl 400 mcg/ Dextrose 100 ml @ 5.095 mls/ hr [id number] IV 05/25/24 09:15 05/25/24 10:46 5.095 MLS/HR objective Gen.: Patient lying in bed in medical ICU. Intubated on mechanical ventilator. Head: Normocephalic, atraumatic. Eyes: PERRLA. Ears: Normal external anatomy. Throat: Endotracheal tube and orogastric tube in place. Neck: Supple, trachea midline. Chest: Transmitted breath sounds bilaterally. Decreased air entry bilaterally. No wheezing. Bibasilar crackles. Cardiovascular: Positive S1, positive S2. Regular rate and rhythm. Abdomen: Positive bowel sounds in all 4 quadrants. Soft, nontender, nondistended. : Garcia in place. Normal external genitalia. Rectal: Deferred. Skin: Warm, dry. Intact. Extremities: 2+ radial pulses bilaterally. No lower extremity edema. Neuro: Off sedation. laboratory and microbiology Laboratory Tests 05/25/24 03:21 Test 05/25/24 03:21 Range/Units Serum Glucose 176 H 74-106 mg/dL Assessment/Plan Impression: Acute hypoxic respiratory failure Acute hypercarbic respiratory failure On mechanical ventilator COPD exacerbation Hx of nicotine dependence Morbid obesity, BMI 40 Atelectasis Events: Remains on vent support Vent settings; AC mode; RR 24 -->18, VT 450 -->500, PEEP 5, FiO2 40% Off sedation Awaiting for mentation to improve. CPAP with PS 8, PEEP of 5. OK for Precedex if necessary for agitation Off pressors, hemodynamically stable ABG reviewed, notable for slight acidemia CXR reviewed, demonstrates mild bilateral opacities, likely atelectasis. Devices in place. Continue bronchodilators. Continue antibiotics. Continue steroids IV fluids at 75 ml/hr Labs and imaging reviewed. Rest of plan as noted below. Plan: s/p intubation on mechanical ventilator. CXR image and report reviewed. Devices in place. Pulmonary vascular congestion. No pneumothorax. No pleural effusion. Vent settings: AC mode; RR 18, VT 500, PEEP 5, FiO2 40% Continuous med neb ordered. Titrate FIO2 to keep O2 saturation above 90%. VAP bundle. Daily ABG and CXR while intubated Off sedation Continue bronchodilators. Continue antibiotics. F/u cultures. Pressors if necessary for hemodynamic support Titrate to keep mean arterial pressure greater than 65 mmHg. Monitor renal function Monitor electrolytes. Supplement as necessary. Monitor ins and outs. Maintain euvolemia. Morbid Obesity - complicates all care GI prophylaxis. DVT prophylaxis. Prognosis: Poor given patient's multiple co-morbidities. Condition: Critical Rest of plan per hospitalist and other consultants. A total of 35 minutes of critical care time was spent reviewing the patient record, examining the patient, making a diagnostic and therapeutic plan, discussing this plan with the medical personnel, following up on diagnostic studies and following the patient for clinical stability excluding any and all procedures. At least 50% of this time was spent in direct, [id number] contact. Thank you, RAFA Thurman, for allowing me to participate in this patient's care. Further recommendations will depend on the patient's clinical course. Please do not hesitate to contact me if you have any questions or concerns. This medical document was created using an electronic medical record system with [employer] system. Although these documentations are being carefully reviewed, there may still be some phonetic and typographical changes. The errors are purely typographical, due to imperfection on the software program, and do not reflect any compromise in the patient's medical care. Dietary Evaluation Review Comments: 1. Recommend 2 g Na CCHO-60 diet as tolearated if Pt is awake, of vent and passes speech eval. 2. Consider TF Glucerna @ 40ml/hr (58g pro 1152 kcal in 24 hrs in FS), if GI accessible, EN is the choice for nutrition support. Add Clinimix 41ml/hr x 24 hrs for the addiitonal protein needs, 3. Consider TPN per pharmacy if NPO > 7 days and EN not the option of nutrition support. Expected Outcomes/Goals: Improved breathing, gradual wt loss. on PO 2 g Na CCHo-60 diet texture as tolerated. Plan discussed with: Other (MALICK Sanchez) Critical Care Time(min): 35 RYAN ROMERO MD May 25, 2024 23:26
[2024-05-26] VITALS (128 sets, daily range): BP systolic 114–198; BP diastolic 54–104; PULSE 56–120; RESP 15–41; TEMP 97.9–101.3; O2SAT 87–100
[2024-05-26] MEDS: hydrALAZINE HCL 20 MG/ML VL IV PRN (03:15)
[2024-05-26 04:35] LABS: Calcium 9.4 mg/dL (8.7-10.4); Potassium 4.5 mmol/L (3.5-5.1)
[2024-05-26 04:36] LABS: Anion Gap 7 (5-15); Carbon Dioxide 27 mmol/L (20-31)
[2024-05-26 04:38] LABS: Chloride 114 mmol/L (98-107); Sodium 148 mmol/L (136-145)
[2024-05-26 04:44] LABS: Blood Urea Nitrogen 29 mg/dL (9-23); Glucose 190 mg/dL (74-106)
[2024-05-26 04:47] LABS: Basophils # (auto) 0 10 ^3/uL (0-0.2); Basophils % (auto) 0.1 % (0.0-2.0); Eosinophils # (auto) 0 10 ^3/uL (0-0.8); Hematocrit 46.7 % (41.0-53.0); Hemoglobin 15.4 g/dL (13.5-17.5); Lymphocytes # (auto) 0.5 10 ^3/uL (0.4-5.4); Mean Corpuscular Hemoglobin 30.7 pg (28.0-32.0); Mean Corpuscular Hgb Conc. 32.9 g/dL (32.0-36.0); Mean Corpuscular Volume 93.2 fL (80.0-100.0); Monocytes # (auto) 0.6 10 ^3/uL (0-1.3); Monocytes % (auto) 3.3 % (0.0-12.0); Neutrophils # (auto) 15.6 10 ^3/uL (1.6-8.6); Neutrophils % (auto) 93.6 % (37.0-80.0); Nucleated Red Blood Cells % 0.1 %; Platelet Count (auto) 206 10^3/uL (140-450); Red Blood Cells 5.02 10^6/uL (4.5-5.90); White Blood Cell 16.7 10^3/uL (4.4-10.8)
--- NOTE | 2024-05-26 05:27 | DVH ---
CHEST RADIOGRAPH Indication: PROTOCOL Technique: Single frontal view of the chest was obtained COMPARISON: XY CHEST PORTABLE on DOS: 05/25/24, XY CHEST XRAY 1 VIEW on DOS: 05/24/24, XY CHEST PORTABL E on DOS: 05/23/24, XY CHEST PORTABLE on DOS: 05/22/24, XY CHEST PORTABLE on DOS: 05/22/24 FINDINGS: Lines and Tubes: Endotracheal tube, enteric catheter and right central venous catheter in satisfactor y position. Lungs: Congestion Pleura: No effusion. No pneumothorax. Cardiomediastinal contours: Megaly Bones: Unremarkable IMPRESSION: Lines and tubes in satisfactory position. No significant interval change.
[2024-05-26] MEDS ORDERED: hydrALAZINE HCL 20 MG/ML VL IV PRN (06:00)
[2024-05-26] MEDS: hydrALAZINE HCL 20 MG/ML VL IV ONE (06:20)
[2024-05-26 09:10] LABS: Base Excess 0.2 mmol/L (-2.0-3.0)
[2024-05-26] MEDS: ACETAMINOPHEN 325 MG TAB PO PRN (13:00)
--- NOTE | 2024-05-26 14:13 | DVHPN2 ---
Subjective The patient is seen and examined at bedside. Remained intubated. Unable to started BiPAP trial. Waiting for bronchoscopy will be done by Dr. Claire, homicide squad commanding officer. Reviewed: Care Plan, H&P, Labs, Medications Changes from previous H/P or p: No Changes General: Per HPI Eyes: No Pain, No Vision change, No Conjunctivae inflammation, No Eyelid inflammation, No Other, No Redness ENT: No Ear pain, No Ear discharge, No Nose pain, No Nose discharge, No Nose congestion, No Mouth pain, No Mouth swelling, No Throat pain, No Throat swelling, No Other Cardiovascular: No Chest Pain, No Palpitations, No Orthopnea, No Paroxysmal Noc. Dyspnea, No Edema, No Lt Headedness; Other (Chest tightness) Respiratory: No Cough, No Dry; Shortness of breath; No SOB with excertion, No Wheezing, No Hemoptysis, No Pleuritic Pain, No Sputum, No Other Gastrointestinal: No Nausea, No Vomiting, No Abdominal Pain, No Diarrhea, No Constipation, No Melena, No Hematochezia, No Other Genitourinary: No Dysuria, No Frequency, No Incontinence, No Hematuria, No Retention, No Other Musculoskeletal: No other, No neck pain, No shoulder pain, No arm pain, No back pain, No hand pain, No leg pain, No foot pain Skin: No Rash, No Lesions, No Jaundice, No Bruising, No Other Objective Vitals Vital Signs Date Time Temp Pulse Resp B/P (MAP) Pulse Ox O2 Delivery O2 Flow Rate FiO2 05/26/24 13:54 167/83 05/26/24 13:00 101.3 05/26/24 12:04 114 31 94 30 05/26/24 12:00 Mechanical Ventilator+ Intake/Output Intake and Output 05/26/24 07:00 Intake Total 2121.808 ml Output Total 2400 ml Balance -278.192 ml Intake Oral 0 ml IV Total 2121.808 ml Output Urine Total 2400 ml General Appearance: No acute distress HEENT: Atraumatic, PERRLA Lungs: Clear to auscultation, Normal air movement, Other (Mechanical ventilation) Cardiovascular: Normal S1, Normal S2 Abdomen: Normal bowel sounds, Soft, No tenderness, No hepatospenomegaly Genitourinary: No Apparent Abnormalities (Aguero catheter) Musculoskeletal: Other (Unable to assess) Skin: Dry, Intact Psych/Mental Status: Other (Unable to assess) Medications Current Medications Medications Dose Ordered Sig/Mindy Route Start Time Stop Time Status Last Admin Dose Admin Norepinephrine Bitartrate 250 ml @ 3.75 mls/hr Q24H IV 05/22/24 09:00 05/23/24 23:15 3.75 MLS/HR Ceftriaxone Sodium 50 ml @ 100 mls/hr DAILY@09 IV 05/22/24 09:00 05/26/24 08:28 100 MLS/HR Sodium Chloride 1,000 ml @ 75 mls/hr [id number] IV 05/22/24 08:30 05/25/24 18:44 75 MLS/HR Morphine Sulfate 2 mg Q30MP PRN IV 05/22/24 09:00 UNV Morphine Sulfate 2 mg Q30M PRN IV 05/22/24 09:30 Enoxaparin Sodium 30 mg DAILY SC 05/22/24 10:00 05/26/24 10:00 30 MG Acetaminophen 650 mg Q6HP PRN PO 05/22/24 09:00 05/26/24 13:00 650 MG Nitroglycerin 0.4 mg Q5MINP PRN SL 05/22/24 09:00 UNV Nitroglycerin 0.4 mg Q5MINP PRN SL 05/22/24 09:00 Propofol 100 ml @ 3.06 mls/hr Q24H IV 05/22/24 13:45 05/25/24 02:32 12.24 MLS/HR Fentanyl Citrate 250 ml @ 2.5 mls/hr Q24H IV 05/22/24 14:45 05/24/24 15:05 2.5 MLS/HR Aspirin 81 mg DAILY PO 05/23/24 10:00 05/26/24 10:00 81 MG Atorvastatin Calcium 40 mg HS PO 05/22/24 22:00 05/25/24 21:57 40 MG Azithromycin 250 ml @ 125 mls/hr DAILY IV 05/23/24 10:00 05/26/24 10:00 125 MLS/HR Albuterol 2.5 mg Q4HR NEB 05/23/24 14:00 05/26/24 14:07 2.5 MG Ipratropium [place] 0.5 mg Q4HR NEB 05/23/24 14:00 05/26/24 14:07 0.5 MG Midazolam HCl 50 ml @ 1 mls/hr Q24H IV 05/23/24 12:15 05/25/24 02:40 4 MLS/HR Methylprednisolone Sodium Succinate 40 mg BID IV 05/24/24 22:00 05/26/24 10:00 40 MG Phenylephrine HCl 250 ml @ 30 mls/hr Q8H20M IV 05/24/24 21:00 Dexmedetomidine HCl 400 mcg/ Dextrose 100 ml @ 5.095 mls/ hr [id number] IV 05/25/24 09:15 05/26/24 02:31 7.643 MLS/HR Hydralazine HCl 10 mg Q6H PRN IV 05/26/24 03:15 05/26/24 13:54 10 MG Laboratory Results Laboratory Tests 05/26/24 03:00 Chemistry Test 05/26/24 03:00 Calcium Level 9.4 mg/dL (8.7-10.4) Urinalysis Test 05/22/24 05:01 Urine Color Light-yellow (Yellow) Urine Clarity Clear (Clear) Urine pH 5.5 (5.0-9.0) Urine Specific [place] 1.011 (1.001-1.035) Urine Protein Trace (Negative) H Urine Ketones Negative (Negative) Urine Blood 1+ /uL (Negative) H Urine Nitrite Negative (Negative) Urine Bilirubin Negative (Negative) Urine Urobilinogen Normal mg/dL (Negative) Urine Leukocyte Esterase Negative /uL (Negative) Urine RBC 2 /hpf (0 - 3) Urine WBC 1 /hpf (0 - 3) Urine Squamous Epithelial Cells None seen /hpf (<5) Urine Bacteria None seen /hpf (None Seen) Urine Glucose Normal mg/dL (Normal) Blood Gas Results Test 05/26/24 07:33 Arterial Blood pH 7.398 (7.350-7.450) FiO2 % 40.0 Microbiology Microbiology Date/Time Source Procedure Growth Status 05/24/24 14:28 Nose MRSA Screen - Final Complete 05/22/24 14:50 Blood Blood Culture - Preliminary NO GROWTH AFTER 72 HOURS OF INCUBATION. Resulted 05/22/24 09:12 Sputum Gram Stain - Final Complete 05/22/24 09:12 Sputum Respiratory Culture - Final Complete Labs and/or images reviewed: Labs reviewed by me Assessment/Plan Assessment/Plan acute hypoxic respiratory failure mechanical ventilation -COPD with exacerbation -leukocytosis, rule out sepsis -obesity -history of CAD -history of nicotine dependence -NSTEMI type 2 secondary to respiratory failure -acute kidney injury, rule out vasomotor nephropathy -right middle and lower lobe atelectasis Plan: -Continue current management. Continue with sedation. Plans for spontaneous breathing trial once patient awakens. -pulse dose of IV Lasix. -continue bronchodilators, Pulmicort -continue IV hydration -continue current antibiotic therapy -PUD, DVT prophylaxis -waiting for bronchoscopy to be done today by homicide squad commanding officer, Dr. Claire. Critical care time spent with patient discussing and formulating plan of care: 37 minutes. This does not include time spent performing procedures. This medical document was created using an electronic medical record system with [employer] direct computerized dictation system. Although this document has been carefully reviewed, there may still be some phonetic and typographical errors. These areas are purely typographical due to imperfections of the software programs, and do not reflect any compromise in the patient's medical care. Plan discussed with: Other (RN) Date of Service: May 26, 2024 Billing Provider: SHAHRIAR BOSE MD Common Visit Codes: [id number] CARE-EACH +30MIN SHAHRIAR BOSE MD May 26, 2024 14:13
--- NOTE | 2024-05-26 16:03 | DVHNC2 ---
Procedure - Bronchoscopy procedure note: Indications: Increased ET tube secretions, Possible mucous plugging. Medicines: See LAYAWAY CLERK notes. Complications: None Procedure: Patient medications and allergies reviewed. The risks and benefits of the procedure and the sedation options and risk were discussed with the patient's healthcare proxy. All questions were answered and informed consent was obtained. Patient identification and proposed procedure were verified prior to the procedure by the physician, and a nurse, and the respiratory therapist in ICU room. The heart rate, respiratory rate, oxygen saturations, blood pressure, adequacy of pulmonary ventilation, and response to care were monitored throughout the procedure. The physical status of the patient was reassessed after the procedure. After obtaining informed consent, the bronchoscope was introduced through the endotracheal tube and advanced into the trachea bronchial tree of both lungs. The procedure was accomplished without difficulty. The patient tolerated the procedure well. Findings: The trachea is in normal caliber. The karoline is sharp. The tracheobronchial tree of the right lung was examined to at least the first subsegmental level. The bronchial mucosa and anatomy in the right lung are normal. There are no endobronchial lesions. There was copious whitish secretions from right main stem bronchus onward throughout R4-R10. These were cleared with 20 mL NS. Mucous plugging in R6-R10. The left upper lobe, lingula, and left lower lobe were examined to at least the first subsegmental level. Bronchial mucosa and anatomy in the left upper lobe and lingula are normal. There were no endobronchial lesions. There was copious whitish secretions from left main stem bronchus onward throughout L6-L10. Mucous plugging removed from L6-L10. Left lower lobe (LLL) Bronchoalveolar lavage (BAL) obtained. LLL BAL sent for gram stain and culture. There was no active bleeding at the completion of the procedure. Estimated blood loss: Less than 5 mL. Impression: Bilateral lower lobe atelectasis due to mucous plugging Mucous plugging from L6-L10 and R6-R10 LLL BAL performed Recommendation: Follow-up RML BAL results. Procedure codes: 06174, bronchoscopy, rigid and flexible, including fluoroscopic guidance, one performed; with bronchial endobronchial broncho-alveolar lavage, single or multiple sites RYAN ROMERO MD May 26, 2024 16:03
--- NOTE | 2024-05-26 16:16 | DVH ---
EXAM: XY CHEST PORTABLE TECHNIQUE: Single frontal chest radiograph CLINICAL HISTORY: post bronch COMPARISON: XY CHEST PORTABLE on DOS: 05/26/24, XY CHEST PORTABLE on DOS: 05/25/24, XY CHEST XRAY 1 VIE W on DOS: 05/24/24 Findings/Impression: Frontal chest radiograph demonstrates no acute osseous or superficial soft tissue abnormalities. Endotracheal tube terminates 5.1 cm from the karoline. Enteric tube is overlying the plane of the stoma ch. Right sided IJ catheter terminates near the superior cavoatrial junction. The trachea is midline. Cardiomegaly. No pneumothorax, pleural effusions, or consolidations.
[2024-05-26] MEDS: LABETALOL HCL 20 MG/4 ML VL IV PRN (18:25)
[2024-05-26] MEDS: BUDESONIDE (INHALATION) 0.5 MG/2 ML NEB NEB SCH (21:52)
[2024-05-26] MEDS: AMINO ACID INFUSION IN D10W 1,000 ML IV SCH (22:00)
--- NOTE | 2024-05-26 23:08 | DVHPN2 ---
Progress Note - Dictate Date Seen: May 26, 2024 Medical Necessity Reason Pt with a Central, PICC or Fol: Yes The following are medically ne: Garcia Catheter Reason for garcia catheter: Strict I&O Subjective Patient seen and examined at bedside. Intubated on mechanical ventilator. Overnight events reviewed. vital signs Vital Sign Date Time Temp Pulse Resp B/P (MAP) Pulse Ox O2 Delivery O2 Flow Rate FiO2 05/26/24 22:45 66 17 176/91 (119) 95 05/26/24 22:00 Mechanical Ventilator+ 40 40 05/26/24 20:00 99.3 99.3 Total Intake and Output 05/25/24 05/25/24 05/26/24 15:00 23:00 07:00 Intake Total 920.380 ml 537.738 ml 666.238 ml Output Total 1950 ml 450 ml Balance 920.380 ml -1412.262 ml 216.238 ml medications Current Medications Medications Dose Ordered Sig/Mindy Route Start Time Stop Time Status Last Admin Dose Admin Norepinephrine Bitartrate 250 ml @ 3.75 mls/hr Q24H IV 05/22/24 09:00 05/23/24 23:15 3.75 MLS/HR Ceftriaxone Sodium 50 ml @ 100 mls/hr DAILY@09 IV 05/22/24 09:00 05/26/24 08:28 100 MLS/HR Sodium Chloride 1,000 ml @ 75 mls/hr [id number] IV 05/22/24 08:30 05/25/24 18:44 75 MLS/HR Morphine Sulfate 2 mg Q30MP PRN IV 05/22/24 09:00 UNV Morphine Sulfate 2 mg Q30M PRN IV 05/22/24 09:30 Enoxaparin Sodium 30 mg DAILY SC 05/22/24 10:00 05/26/24 10:00 30 MG Acetaminophen 650 mg Q6HP PRN PO 05/22/24 09:00 05/26/24 13:00 650 MG Nitroglycerin 0.4 mg Q5MINP PRN SL 05/22/24 09:00 UNV Nitroglycerin 0.4 mg Q5MINP PRN SL 05/22/24 09:00 Propofol 100 ml @ 3.06 mls/hr Q24H IV 05/22/24 13:45 05/25/24 02:32 12.24 MLS/HR Fentanyl Citrate 250 ml @ 2.5 mls/hr Q24H IV 05/22/24 14:45 05/26/24 14:45 2.5 MLS/HR Aspirin 81 mg DAILY PO 05/23/24 10:00 05/26/24 10:00 81 MG Atorvastatin Calcium 40 mg HS PO 05/22/24 22:00 05/26/24 22:05 40 MG Azithromycin 250 ml @ 125 mls/hr DAILY IV 05/23/24 10:00 05/26/24 10:00 125 MLS/HR Albuterol 2.5 mg Q4HR NEB 05/23/24 14:00 05/26/24 21:51 2.5 MG Ipratropium [place] 0.5 mg Q4HR NEB 05/23/24 14:00 05/26/24 21:51 0.5 MG Midazolam HCl 50 ml @ 1 mls/hr Q24H IV 05/23/24 12:15 05/25/24 02:40 4 MLS/HR Methylprednisolone Sodium Succinate 40 mg BID IV 05/24/24 22:00 05/26/24 22:05 40 MG Phenylephrine HCl 250 ml @ 30 mls/hr Q8H20M IV 05/24/24 21:00 Hydralazine HCl 10 mg Q6H PRN IV 05/26/24 03:15 05/26/24 20:23 10 MG Dexmedetomidine HCl 400 mcg/ Dextrose 100 ml @ 5.11 mls/hr [id number] IV 05/26/24 15:45 05/26/24 22:07 17.885 MLS/HR Budesonide 0.5 mg BID NEB 05/26/24 22:00 05/26/24 21:52 0.5 MG Labetalol HCl 20 mg Q4HPRN PRN IV 05/26/24 18:00 05/26/24 18:25 20 MG Amino Acids 0 ml @ 0 mls/hr PER PHARMACY IV 05/27/24 06:00 UNV Amino Acids/ Electrolytes/ Dextrose 1,000 ml @ 10 mls/hr DAILY@2200 IV 05/26/24 22:00 05/27/24 21:59 objective Gen.: Patient lying in bed in medical ICU. Intubated on mechanical ventilator. Head: Normocephalic, atraumatic. Eyes: PERRLA. Ears: Normal external anatomy. Throat: Endotracheal tube and orogastric tube in place. Neck: Supple, trachea midline. Chest: Transmitted breath sounds bilaterally. Decreased air entry bilaterally. No wheezing. Bibasilar crackles. Cardiovascular: Positive S1, positive S2. Regular rate and rhythm. Abdomen: Positive bowel sounds in all 4 quadrants. Soft, nontender, nondistended. : Garcia in place. Normal external genitalia. Rectal: Deferred. Skin: Warm, dry. Intact. Extremities: 2+ radial pulses bilaterally. No lower extremity edema. Neuro: Off sedation. laboratory and microbiology Laboratory Tests 05/26/24 03:00 Test 05/26/24 03:00 Range/Units Serum Glucose 190 H 74-106 mg/dL Assessment/Plan Impression: Acute hypoxic respiratory failure Acute hypercarbic respiratory failure On mechanical ventilator COPD exacerbation Hx of nicotine dependence Morbid obesity, BMI 40 Atelectasis Events: Remains on vent support Vent settings; AC mode; RR 18, VT 500, PEEP 5, FiO2 40 -->30% Increased ET tube secretions Plan for therapeutic bronchoscopy with BAL. On Precedex drip Fentanyl for analgesia Off pressors, hemodynamically stable ABG reviewed, compensated. Continue bronchodilators. Continue antibiotics. Continue IV steroids IV fluids at 75 ml/hr S/p therapeutic bronchoscopy with LLL BAL today - cleared mucous plugging from L6-L10 and R6-R10 Awaiting for mentation to improve. CPAP with PS 8, PEEP of 5. OK for Precedex if necessary for agitation Labs and imaging reviewed. Rest of plan as noted below. Plan: s/p intubation on mechanical ventilator. CXR image and report reviewed. Devices in place. Pulmonary vascular congestion. No pneumothorax. No pleural effusion. Vent settings: AC mode; RR 18, VT 500, PEEP 5, FiO2 30% Continuous med neb ordered. Titrate FIO2 to keep O2 saturation above 90%. VAP bundle. Daily ABG and CXR while intubated Off sedation Continue bronchodilators. Continue antibiotics. F/u cultures. Pressors if necessary for hemodynamic support Titrate to keep mean arterial pressure greater than 65 mmHg. Monitor renal function Monitor electrolytes. Supplement as necessary. Monitor ins and outs. Maintain euvolemia. Morbid Obesity - complicates all care GI prophylaxis. DVT prophylaxis. Prognosis: Poor given patient's multiple co-morbidities. Condition: Critical Rest of plan per hospitalist and other consultants. A total of 35 minutes of critical care time was spent reviewing the patient record, examining the patient, making a diagnostic and therapeutic plan, discussing this plan with the medical personnel, following up on diagnostic studies and following the patient for clinical stability excluding any and all procedures. At least 50% of this time was spent in direct, [id number] contact. Thank you, RAFA Thurman, for allowing me to participate in this patient's care. Further recommendations will depend on the patient's clinical course. Please do not hesitate to contact me if you have any questions or concerns. This medical document was created using an electronic medical record system with [employer] dictation system. Although these documentations are being carefully reviewed, there may still be some phonetic and typographical changes. The errors are purely typographical, due to imperfection on the software program, and do not reflect any compromise in the patient's medical care. Dietary Evaluation Review Comments: 1. Recommend 2 g Na CCHO-60 diet as tolearated if Pt is awake, of vent and passes speech eval. 2. Consider TF Glucerna @ 40ml/hr (58g pro 1152 kcal in 24 hrs in FS), if GI accessible, EN is the choice for nutrition support. Add Clinimix 41ml/hr x 24 hrs for the addiitonal protein needs, 3. Consider TPN per pharmacy if NPO > 7 days and EN not the option of nutrition support. Expected Outcomes/Goals: Improved breathing, gradual wt loss. on PO 2 g Na CCHo-60 diet texture as tolerated. Plan discussed with: Other (MALICK Sanchez) Critical Care Time(min): 35 RYAN ROMERO MD May 26, 2024 23:08
[2024-05-27] VITALS (96 sets, daily range): BP systolic 90–179; BP diastolic 47–135; PULSE 57–120; RESP 12–23; TEMP 96.8–99.7; O2SAT 90–100
--- NOTE | 2024-05-27 05:42 | DVH ---
CHEST RADIOGRAPH Indication: RESP FAILURE Technique: Single frontal view of the chest was obtained COMPARISON: XY CHEST PORTABLE on DOS: 05/26/24, XY CHEST PORTABLE on DOS: 05/26/24, XY CHEST PORTABLE o n DOS: 05/25/24, XY CHEST XRAY 1 VIEW on DOS: 05/24/24, XY CHEST PORTABLE on DOS: 05/23/24 FINDINGS: Lines and Tubes: Unchanged Lungs: Unchanged atelectasis in the left lower lobe. Pleura: No effusion. No pneumothorax. Cardiomediastinal contours: Unchanged Bones: Unremarkable IMPRESSION: 1. Unchanged atelectasis in the left lower lobe
[2024-05-27 05:43] LABS: Basophils # (auto) 0 10 ^3/uL (0-0.2); Basophils % (auto) 0.2 % (0.0-2.0); Eosinophils # (auto) 0 10 ^3/uL (0-0.8); Hematocrit 45.4 % (41.0-53.0); Hemoglobin 14.7 g/dL (13.5-17.5); Lymphocytes # (auto) 0.4 10 ^3/uL (0.4-5.4); Lymphocytes % (auto) 3.1 % (10.0-50.0); Mean Corpuscular Hemoglobin 29.8 pg (28.0-32.0); Mean Corpuscular Hgb Conc. 32.4 g/dL (32.0-36.0); Mean Corpuscular Volume 92.1 fL (80.0-100.0); Monocytes # (auto) 0.6 10 ^3/uL (0-1.3); Monocytes % (auto) 4.6 % (0.0-12.0); Neutrophils # (auto) 12.1 10 ^3/uL (1.6-8.6); Neutrophils % (auto) 92.1 % (37.0-80.0); Nucleated Red Blood Cells % 0.1 %; Platelet Count (auto) 180 10^3/uL (140-450); Red Blood Cells 4.93 10^6/uL (4.5-5.90); White Blood Cell 13.2 10^3/uL (4.4-10.8)
[2024-05-27 05:48] LABS: Potassium 4.7 mmol/L (3.5-5.1)
[2024-05-27 05:49] LABS: Anion Gap 8 (5-15); Calcium 9.5 mg/dL (8.7-10.4); Carbon Dioxide 30 mmol/L (20-31)
[2024-05-27 06:00] LABS: Blood Urea Nitrogen 27 mg/dL (9-23); Chloride 113 mmol/L (98-107); Glucose 210 mg/dL (74-106); Sodium 151 mmol/L (136-145)
[2024-05-27] MEDS ORDERED: CLINIMIX PER PHARMACY 0 ML IV SCH (06:00)
[2024-05-27 07:06] LABS: Base Excess 3.6 mmol/L (-2.0-3.0)
[2024-05-27] MEDS: SOD CHL 0.45% 1,000 ML IV SCH (07:20)
--- NOTE | 2024-05-27 08:04 | ECG ---
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
[2024-05-27 10:26] LABS: Base Excess 1.5 mmol/L (-2.0-3.0)
[2024-05-27] MEDS ORDERED: DEXTROSE (50%) 50ML SYRG IV SCH (11:00)
[2024-05-27 11:10] LABS: Alanine Aminotransferase 31 U/L (7-40); Albumin 3.7 g/dL (3.2-4.8); Alkaline Phosphatase 47 U/L (46-116); Anion Gap 9 (5-15); BUN/Creatinine Ratio 30.7 (10.0-20.0); Calcium 9.6 mg/dL (8.7-10.4); Carbon Dioxide 28 mmol/L (20-31); Magnesium 2.6 mg/dL (1.6-2.6); Potassium 4.7 mmol/L (3.5-5.1)
[2024-05-27 11:11] LABS: Bilirubin, Total 0.5 mg/dL (0.2-1.0); Phosphorus 3.8 mg/dL (2.4-5.1)
[2024-05-27 11:16] LABS: Aspartate Aminotransferase 56 U/L (13-40); Blood Urea Nitrogen 27 mg/dL (9-23); Chloride 113 mmol/L (98-107); Glucose 198 mg/dL (74-106); Sodium 150 mmol/L (136-145); Total Protein 5.7 g/dL (5.7-8.2)
[2024-05-27] MEDS: ACCU-CHEK COMFORT CURVE STRIP VI SCH (11:43)
[2024-05-27] MEDS: InsuLIN REG 1unit/0.01ml Soln (100units/ml) SC SCH (11:45)
--- NOTE | 2024-05-27 13:45 | DVHPN2 ---
Subjective The patient is seen and examined at bedside. Remained intubated. Status post bronchoscopy yesterday Reviewed: Care Plan, H&P, Labs, Medications Changes from previous H/P or p: No Changes General: Per HPI Eyes: No Pain, No Vision change, No Conjunctivae inflammation, No Eyelid inflammation, No Other, No Redness ENT: No Ear pain, No Ear discharge, No Nose pain, No Nose discharge, No Nose congestion, No Mouth pain, No Mouth swelling, No Throat pain, No Throat swelling, No Other Cardiovascular: No Chest Pain, No Palpitations, No Orthopnea, No Paroxysmal Noc. Dyspnea, No Edema, No Lt Headedness; Other (Chest tightness) Respiratory: No Cough, No Dry; Shortness of breath; No SOB with excertion, No Wheezing, No Hemoptysis, No Pleuritic Pain, No Sputum, No Other Gastrointestinal: No Nausea, No Vomiting, No Abdominal Pain, No Diarrhea, No Constipation, No Melena, No Hematochezia, No Other Genitourinary: No Dysuria, No Frequency, No Incontinence, No Hematuria, No Retention, No Other Musculoskeletal: No other, No neck pain, No shoulder pain, No arm pain, No back pain, No hand pain, No leg pain, No foot pain Skin: No Rash, No Lesions, No Jaundice, No Bruising, No Other Objective Vitals Vital Signs Date Time Temp Pulse Resp B/P (MAP) Pulse Ox O2 Delivery O2 Flow Rate FiO2 05/27/24 13:11 92 23 175/91 (119) 94 35 05/27/24 10:45 99.0 210.2 05/27/24 10:00 Mechanical Ventilator+ Intake/Output Intake and Output 05/27/24 07:00 Intake Total 1648.364 ml Output Total 1700 ml Balance -51.636 ml Intake Oral 0 ml IV Total 1648.364 ml Output Urine Total 1700 ml General Appearance: No acute distress HEENT: Atraumatic, PERRLA Lungs: Clear to auscultation, Normal air movement, Other (Mechanical ventilation) Cardiovascular: Normal S1, Normal S2 Abdomen: Normal bowel sounds, Soft, No tenderness, No hepatospenomegaly Genitourinary: No Apparent Abnormalities (Aguero catheter) Musculoskeletal: Other (Unable to assess) Skin: Dry, Intact Psych/Mental Status: Other (Unable to assess) Medications Current Medications Medications Dose Ordered Sig/Mindy Route Start Time Stop Time Status Last Admin Dose Admin Norepinephrine Bitartrate 250 ml @ 3.75 mls/hr Q24H IV 05/22/24 09:00 05/23/24 23:15 3.75 MLS/HR Ceftriaxone Sodium 50 ml @ 100 mls/hr DAILY@09 IV 05/22/24 09:00 05/27/24 09:00 100 MLS/HR Morphine Sulfate 2 mg Q30MP PRN IV 05/22/24 09:00 UNV Morphine Sulfate 2 mg Q30M PRN IV 05/22/24 09:30 Enoxaparin Sodium 30 mg DAILY SC 05/22/24 10:00 05/27/24 08:48 30 MG Acetaminophen 650 mg Q6HP PRN PO 05/22/24 09:00 05/26/24 13:00 650 MG Nitroglycerin 0.4 mg Q5MINP PRN SL 05/22/24 09:00 UNV Nitroglycerin 0.4 mg Q5MINP PRN SL 05/22/24 09:00 Propofol 100 ml @ 3.06 mls/hr Q24H IV 05/22/24 13:45 05/26/24 23:24 3.06 MLS/HR Fentanyl Citrate 250 ml @ 2.5 mls/hr Q24H IV 05/22/24 14:45 05/26/24 14:45 2.5 MLS/HR Aspirin 81 mg DAILY PO 05/23/24 10:00 05/27/24 08:48 81 MG Atorvastatin Calcium 40 mg HS PO 05/22/24 22:00 05/26/24 22:05 40 MG Azithromycin 250 ml @ 125 mls/hr DAILY IV 05/23/24 10:00 05/27/24 08:47 125 MLS/HR Albuterol 2.5 mg Q4HR NEB 05/23/24 14:00 05/27/24 09:53 2.5 MG Ipratropium [place] 0.5 mg Q4HR NEB 05/23/24 14:00 05/27/24 09:53 0.5 MG Midazolam HCl 50 ml @ 1 mls/hr Q24H IV 05/23/24 12:15 05/25/24 02:40 4 MLS/HR Methylprednisolone Sodium Succinate 40 mg BID IV 05/24/24 22:00 05/27/24 08:47 40 MG Phenylephrine HCl 250 ml @ 30 mls/hr Q8H20M IV 05/24/24 21:00 Hydralazine HCl 10 mg Q6H PRN IV 05/26/24 03:15 05/27/24 10:06 10 MG Dexmedetomidine HCl 400 mcg/ Dextrose 100 ml @ 5.11 mls/hr [id number] IV 05/26/24 15:45 05/26/24 22:07 17.885 MLS/HR Budesonide 0.5 mg BID NEB 05/26/24 22:00 05/27/24 06:29 0.5 MG Labetalol HCl 20 mg Q4HPRN PRN IV 05/26/24 18:00 05/27/24 08:51 20 MG Amino Acids 0 ml @ 0 mls/hr PER PHARMACY IV 05/27/24 06:00 Sodium Chloride 1,000 ml @ 75 mls/hr [id number] IV 05/27/24 07:20 05/27/24 07:20 75 MLS/HR Diagnostic Test (Pha) 1 strip Q6HR 05/27/24 12:00 05/27/24 11:43 1 STRIP Insulin Human Regular FOLLOW SLIDING SCALE Q6HR SC 05/27/24 12:00 05/27/24 11:45 8 UNITS Dextrose 50 ml UD IV 05/27/24 11:00 Laboratory Results Laboratory Tests 05/27/24 05:09 Chemistry Test 05/27/24 05:09 Albumin 3.7 g/dL (3.2-4.8) Calcium Level 9.6 mg/dL (8.7-10.4) Magnesium Level 2.6 mg/dL (1.6-2.6) Phosphorus Level 3.8 mg/dL (2.4-5.1) Total Protein 5.7 g/dL (5.7-8.2) LFT Test 05/27/24 05:09 Alanine Aminotransferase (ALT) 31 U/L (7-40) Alkaline Phosphatase 47 U/L (46-116) Aspartate Amino Transferase (AST) 56 U/L (13-40) H Total Bilirubin 0.5 mg/dL (0.2-1.0) Urinalysis Test 05/22/24 05:01 Urine Color Light-yellow (Yellow) Urine Clarity Clear (Clear) Urine pH 5.5 (5.0-9.0) Urine Specific [place] 1.011 (1.001-1.035) Urine Protein Trace (Negative) H Urine Ketones Negative (Negative) Urine Blood 1+ /uL (Negative) H Urine Nitrite Negative (Negative) Urine Bilirubin Negative (Negative) Urine Urobilinogen Normal mg/dL (Negative) Urine Leukocyte Esterase Negative /uL (Negative) Urine RBC 2 /hpf (0 - 3) Urine WBC 1 /hpf (0 - 3) Urine Squamous Epithelial Cells None seen /hpf (<5) Urine Bacteria None seen /hpf (None Seen) Urine Glucose Normal mg/dL (Normal) Blood Gas Results Test 05/27/24 06:45 05/27/24 10:12 Arterial Blood pH 7.365 (7.350-7.450) 7.420 (7.350-7.450) FiO2 % 30.0 35.0 Microbiology Microbiology Date/Time Source Procedure Growth Status 05/26/24 15:50 Bronchial Washings Gram Stain Pending Resulted 05/26/24 15:50 Bronchial Washings Respiratory Culture - Preliminary Resulted 05/24/24 14:28 Nose MRSA Screen - Final Complete 05/22/24 14:50 Blood Blood Culture - Preliminary NO GROWTH AFTER 72 HOURS OF INCUBATION. Resulted Labs and/or images reviewed: Labs reviewed by me Assessment/Plan Assessment/Plan acute hypoxic respiratory failure mechanical ventilation -COPD with exacerbation -leukocytosis, rule out sepsis -obesity -history of CAD -history of nicotine dependence -NSTEMI type 2 secondary to respiratory failure -acute kidney injury, rule out vasomotor nephropathy -right middle and lower lobe atelectasis Plan: -Continue current management. Continue with sedation. Plans for spontaneous breathing trial once patient awakens. -pulse dose of IV Lasix. -continue bronchodilators, Pulmicort -continue IV hydration -continue current antibiotic therapy -PUD, DVT prophylaxis -status post bronchoscopy done by cluster bore operator, Dr. Claire. Prognosis is poor. Unable weaned off ventilation support for now -labetalol 20 mg IV q.4 p.r.n. for systolic greater than 160 or diastolic greater than 100. -we will start the patient on Clinimix for nutrition support. Critical care time spent with patient discussing and formulating plan of care: 37 minutes. This does not include time spent performing procedures. This medical document was created using an electronic medical record system with [employer] direct computerized dictation system. Although this document has been carefully reviewed, there may still be some phonetic and typographical errors. These areas are purely typographical due to imperfections of the software programs, and do not reflect any compromise in the patient's medical care. Plan discussed with: Other (rn) My Orders Orders - SHAHRIAR BOSE MD Procedure Category Date Status Time Labetalol Hcl PHA 05/26/24 In Process (Labetalol Hcl) 18:00 Clinimix Per Pharmacy PHA 05/27/24 In Process 06:00 Glucose Blood PHA 05/27/24 In Process (Accu-Chek Comfort 12:00 Insulin R (Human) PHA 05/27/24 In Process (Insulin R) 12:00 Dextrose 50% Syringe PHA 05/27/24 In Process 11:[address] 05/27/24 Logged 13:17 Date of Service: May 27, 2024 Billing Provider: SHAHRIAR BOSE MD Common Visit Codes: [id number] INP/OBS CARE(HIGH) SHAHRIAR BOSE MD May 27, 2024 13:45
--- NOTE | 2024-05-27 15:50 | DVH ---
EXAM: CT HEAD WITHOUT CONTRAST INDICATION: RULE OUT STROKE TECHNIQUE: CT of the head without intravenous contrast. Radiation dose : 1. Head: CT Dose: CTDI volume is 68.4 mGy. Dose-length product is 1347.62 mGy*cm The dose indicators for CT are the volume computed tomography (CT) dose index (CTDIvol) and the dose length product (DLP), and are measured in units of mGy and mGy-cm, respectively. These indicators are not patient dose, but values generated from the CT scanner acquisition factors. The report includes radiation exposure data for exposures received during this examination. COMPARISON: None FINDINGS: No intracranial hemorrhage, masses, midline shift, hydrocephalus, or evidence of acute large vessel i nfarct. There is global brain atrophy. There is [id number] decreased attenuation in the periven tricular white matter. 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 There are punctate calcifications within the cerebral and cerebellar sulci and some calcifications w ithin the cerebral parenchyma. There are thick atherosclerotic calcifications of the cavernous ICAs. There are postoperative changes of bilateral cataract extraction surgery. There is divergent optic ga ze. The mastoid air cells and middle ear spaces are clear. There is mild mucosal thickening of the bi lateral maxillary and ethmoid sinuses. No cranial fracture or scalp edema. IMPRESSION: 1. Global brain atrophy and chronic schema changes without evidence of acute intracranial process. 2. Punctate intra-axial and extra-axial calcifications may be due to remote history of TORCH infectio n. 3. Mild bilateral maxillary and ethmoid sinus disease. Radiation optimization: All CT scans at this facility use at least one of these dose optimization rochelle hniques: Automated exposure control mA and/or kV adjustment per patient size (includes targeted exams where dose is matched to clinical indication) or iterative reconstruction.
[2024-05-27] MEDS: AMINO ACID INFUSION IN D10W 1,000 ML IV SCH (21:43)
--- NOTE | 2024-05-27 21:56 | DVHPN2 ---
Progress Note - Dictate Date Seen: May 27, 2024 Medical Necessity Reason Pt with a Central, PICC or Fol: Yes The following are medically ne: Garcia Catheter Reason for garcia catheter: Strict I&O Subjective Patient seen and examined at bedside. Sedated, intubated on mechanical ventilator. Overnight events reviewed. vital signs Vital Sign Date Time Temp Pulse Resp B/P (MAP) Pulse Ox O2 Delivery O2 Flow Rate FiO2 05/27/24 20:00 30 05/27/24 20:00 77 05/27/24 20:00 18 95 Mechanical Ventilator+ 05/27/24 20:00 100/51 (67) 05/27/24 17:15 97.3 207.1 Total Intake and Output 05/26/24 05/26/24 05/27/24 15:00 23:00 07:00 Intake Total 1006.951 ml 467.643 ml 173.77 ml Output Total 1000 ml 700 ml Balance 1006.951 ml -532.357 ml -526.23 ml medications Current Medications Medications Dose Ordered Sig/Mindy Route Start Time Stop Time Status Last Admin Dose Admin Norepinephrine Bitartrate 250 ml @ 3.75 mls/hr Q24H IV 05/22/24 09:00 05/23/24 23:15 3.75 MLS/HR Ceftriaxone Sodium 50 ml @ 100 mls/hr DAILY@09 IV 05/22/24 09:00 05/27/24 09:00 100 MLS/HR Morphine Sulfate 2 mg Q30MP PRN IV 05/22/24 09:00 UNV Morphine Sulfate 2 mg Q30M PRN IV 05/22/24 09:30 Enoxaparin Sodium 30 mg DAILY SC 05/22/24 10:00 05/27/24 08:48 30 MG Acetaminophen 650 mg Q6HP PRN PO 05/22/24 09:00 05/26/24 13:00 650 MG Nitroglycerin 0.4 mg Q5MINP PRN SL 05/22/24 09:00 UNV Nitroglycerin 0.4 mg Q5MINP PRN SL 05/22/24 09:00 Propofol 100 ml @ 3.06 mls/hr Q24H IV 05/22/24 13:45 05/27/24 14:09 9.18 MLS/HR Fentanyl Citrate 250 ml @ 2.5 mls/hr Q24H IV 05/22/24 14:45 05/26/24 14:45 2.5 MLS/HR Aspirin 81 mg DAILY PO 05/23/24 10:00 05/27/24 08:48 81 MG Atorvastatin Calcium 40 mg HS PO 05/22/24 22:00 05/27/24 21:43 40 MG Azithromycin 250 ml @ 125 mls/hr DAILY IV 05/23/24 10:00 05/27/24 08:47 125 MLS/HR Albuterol 2.5 mg Q4HR NEB 05/23/24 14:00 05/27/24 18:23 2.5 MG Ipratropium [place] 0.5 mg Q4HR NEB 05/23/24 14:00 05/27/24 18:23 0.5 MG Midazolam HCl 50 ml @ 1 mls/hr Q24H IV 05/23/24 12:15 05/25/24 02:40 4 MLS/HR Methylprednisolone Sodium Succinate 40 mg BID IV 05/24/24 22:00 05/27/24 21:43 40 MG Phenylephrine HCl 250 ml @ 30 mls/hr Q8H20M IV 05/24/24 21:00 Hydralazine HCl 10 mg Q6H PRN IV 05/26/24 03:15 05/27/24 16:16 10 MG Dexmedetomidine HCl 400 mcg/ Dextrose 100 ml @ 5.11 mls/hr [id number] IV 05/26/24 15:45 05/26/24 22:07 17.885 MLS/HR Budesonide 0.5 mg BID NEB 05/26/24 22:00 05/27/24 06:29 0.5 MG Labetalol HCl 20 mg Q4HPRN PRN IV 05/26/24 18:00 05/27/24 08:51 20 MG Amino Acids 0 ml @ 0 mls/hr PER PHARMACY IV 05/27/24 06:00 Sodium Chloride 1,000 ml @ 75 mls/hr [id number] IV 05/27/24 07:20 05/27/24 07:20 75 MLS/HR Diagnostic Test (Pha) 1 strip Q6HR 05/27/24 12:00 05/27/24 18:00 1 STRIP Insulin Human Regular FOLLOW SLIDING SCALE Q6HR SC 05/27/24 12:00 05/27/24 18:00 4 UNITS Dextrose 50 ml UD IV 05/27/24 11:00 Amino Acids/ Electrolytes/ Dextrose 1,000 ml @ 41 mls/hr DAILY@2200 IV 05/27/24 22:00 05/27/24 21:43 41 MLS/HR objective Gen.: Patient lying in bed in medical ICU. Sedated, intubated on mechanical ventilator. Head: Normocephalic, atraumatic. Eyes: PERRLA. Ears: Normal external anatomy. Throat: Endotracheal tube and orogastric tube in place. Neck: Supple, trachea midline. Chest: Transmitted breath sounds bilaterally. Decreased air entry bilaterally. No wheezing. Bibasilar crackles. Cardiovascular: Positive S1, positive S2. Regular rate and rhythm. Abdomen: Positive bowel sounds in all 4 quadrants. Soft, nontender, nondistended. : Garcia in place. Normal external genitalia. Rectal: Deferred. Skin: Warm, dry. Intact. Extremities: 2+ radial pulses bilaterally. No lower extremity edema. Neuro: Sedated. laboratory and microbiology Laboratory Tests 05/27/24 05:09 Test 05/27/24 05:09 Range/Units Serum Glucose 198 H 74-106 mg/dL Assessment/Plan Impression: Acute hypoxic respiratory failure Acute hypercarbic respiratory failure On mechanical ventilator COPD exacerbation Hx of nicotine dependence Morbid obesity, BMI 40 Atelectasis Events: Remains on vent support Vent settings; AC mode; RR 18, VT 500, PEEP 5, FiO2 30 -->35% CPAP not tolerated Plan to re-sedate - Propofol, Fentanyl On Precedex drip Will attempt CPAP in AM. Plan to obtain CT head. Off pressors, hemodynamically stable ABG reviewed, compensated. CXR reviewed, demonstrates unchanged atelectasis in the left lower lobe. Devices in place. Continue bronchodilators. Continue antibiotics. Continue IV steroids IV fluids at 75 ml/hr S/p therapeutic bronchoscopy with LLL BAL on 05/26/24 - cleared mucous plugging from L6-L10 and R6-R10 Labs and imaging reviewed. Rest of plan as noted below. Plan: s/p intubation on mechanical ventilator. CXR image and report reviewed. Devices in place. Pulmonary vascular congestion. No pneumothorax. No pleural effusion. Vent settings: AC mode; RR 18, VT 500, PEEP 5, FiO2 35% Continuous med neb ordered. Titrate FIO2 to keep O2 saturation above 90%. VAP bundle. Daily ABG and CXR while intubated Sedated for vent synchrony Continue bronchodilators. Continue antibiotics. F/u cultures. Pressors if necessary for hemodynamic support Titrate to keep mean arterial pressure greater than 65 mmHg. Monitor renal function Monitor electrolytes. Supplement as necessary. Monitor ins and outs. Maintain euvolemia. Morbid Obesity - complicates all care GI prophylaxis. DVT prophylaxis. Prognosis: Poor given patient's multiple co-morbidities. Condition: Critical Rest of plan per hospitalist and other consultants. A total of 35 minutes of critical care time was spent reviewing the patient record, examining the patient, making a diagnostic and therapeutic plan, discussing this plan with the medical personnel, following up on diagnostic studies and following the patient for clinical stability excluding any and all procedures. At least 50% of this time was spent in direct, [id number] contact. Thank you, RAFA Thurman, for allowing me to participate in this patient's care. Further recommendations will depend on the patient's clinical course. Please do not hesitate to contact me if you have any questions or concerns. This medical document was created using an electronic medical record system with [employer] dictation system. Although these documentations are being carefully reviewed, there may still be some phonetic and typographical changes. The errors are purely typographical, due to imperfection on the software program, and do not reflect any compromise in the patient's medical care. Dietary Evaluation Review Comments: 1. Recommend 2 g Na CCHO-60 diet as tolearated if Pt is awake, of vent and passes speech eval. 2. Consider TF Glucerna @ 40ml/hr (58g pro 1152 kcal in 24 hrs in FS), if GI accessible, EN is the choice for nutrition support. Add Clinimix 41ml/hr x 24 hrs for the addiitonal protein needs, 3. Consider TPN per pharmacy if NPO > 7 days and EN not the option of nutrition support. Expected Outcomes/Goals: Improved breathing, gradual wt loss. on PO 2 g Na CCHo-60 diet texture as tolerated. Plan discussed with: Other (RN) Critical Care Time(min): 35 RYAN ROMERO MD May 27, 2024 21:56
[2024-05-28] VITALS (112 sets, daily range): BP systolic 59–182; BP diastolic 31–108; PULSE 58–129; RESP 10–26; TEMP 97.5–100.8; O2SAT 90–97
[2024-05-28 05:16] LABS: Basophils # (auto) 0.1 10 ^3/uL (0-0.2); Basophils % (auto) 0.8 % (0.0-2.0); Eosinophils # (auto) 0 10 ^3/uL (0-0.8); Hematocrit 43.5 % (41.0-53.0); Hemoglobin 14.2 g/dL (13.5-17.5); Lymphocytes # (auto) 0.4 10 ^3/uL (0.4-5.4); Lymphocytes % (auto) 2.5 % (10.0-50.0); Mean Corpuscular Hemoglobin 30.6 pg (28.0-32.0); Mean Corpuscular Hgb Conc. 32.8 g/dL (32.0-36.0); Mean Corpuscular Volume 93.3 fL (80.0-100.0); Monocytes # (auto) 0.6 10 ^3/uL (0-1.3); Monocytes % (auto) 4.2 % (0.0-12.0); Neutrophils # (auto) 13.9 10 ^3/uL (1.6-8.6); Neutrophils % (auto) 92.5 % (37.0-80.0); Platelet Count (auto) 190 10^3/uL (140-450); Red Blood Cells 4.66 10^6/uL (4.5-5.90); Red Cell Distribution Width 14.1 % (11.8-14.3)
[2024-05-28 05:27] LABS: Potassium 4.4 mmol/L (3.5-5.1)
--- NOTE | 2024-05-28 05:27 | DVH ---
CHEST RADIOGRAPH Indication: Intubated Technique: Single frontal view of the chest was obtained Comparison: XY CHEST PORTABLE on DOS: 05/27/24 FINDINGS: Lines and Tubes: Right PICC terminates in the superior vena cava. The endotracheal tube terminates 4. 6 cm above the karoline. The enteric tube courses below the left hemidiaphragm and the tip extends outs geraldine the field of view. Lungs: Left basilar atelectasis. The right lung is clear. Pleura: No effusion. No pneumothorax. Cardiomediastinal contours: Unremarkable Bones: No acute osseous abnormality. IMPRESSION: 1. Left basilar atelectasis.
[2024-05-28 05:28] LABS: Anion Gap 5 (5-15); Carbon Dioxide 31 mmol/L (20-31)
[2024-05-28 05:29] LABS: Calcium 9.5 mg/dL (8.7-10.4)
[2024-05-28 05:56] LABS: Chloride 112 mmol/L (98-107); Glucose 185 mg/dL (74-106); Sodium 148 mmol/L (136-145)
[2024-05-28 08:02] LABS: Base Excess -1.3 mmol/L (-2.0-3.0)
[2024-05-28] MEDS ORDERED: VANCOMYCIN PER PHARMACY 0 MG IV SCH (09:45)
--- NOTE | 2024-05-28 09:51 | DVHPN2 ---
Subjective Patient intubated and sedated. Reviewed: Care Plan, H&P, Labs, Medications Changes from previous H/P or p: No Changes General: Per HPI Eyes: No Pain, No Vision change, No Conjunctivae inflammation, No Eyelid inflammation, No Other, No Redness ENT: No Ear pain, No Ear discharge, No Nose pain, No Nose discharge, No Nose congestion, No Mouth pain, No Mouth swelling, No Throat pain, No Throat swelling, No Other Cardiovascular: No Chest Pain, No Palpitations, No Orthopnea, No Paroxysmal Noc. Dyspnea, No Edema, No Lt Headedness; Other (Chest tightness) Respiratory: No Cough, No Dry; Shortness of breath; No SOB with excertion, No Wheezing, No Hemoptysis, No Pleuritic Pain, No Sputum, No Other Gastrointestinal: No Nausea, No Vomiting, No Abdominal Pain, No Diarrhea, No Constipation, No Melena, No Hematochezia, No Other Genitourinary: No Dysuria, No Frequency, No Incontinence, No Hematuria, No Retention, No Other Musculoskeletal: No other, No neck pain, No shoulder pain, No arm pain, No back pain, No hand pain, No leg pain, No foot pain Skin: No Rash, No Lesions, No Jaundice, No Bruising, No Other Objective Vitals Vital Signs Date Time Temp Pulse Resp B/P (MAP) Pulse Ox O2 Delivery O2 Flow Rate FiO2 05/28/24 09:39 95 Mechanical Ventilator+ 35 35 05/28/24 09:39 99 05/28/24 09:39 18 05/28/24 09:34 164/85 05/28/24 08:00 99.3 210.7 Intake/Output Intake and Output 05/28/24 07:00 Intake Total 2897.065 ml Output Total 1000 ml Balance 1897.065 ml Intake Oral 0 ml IV Total 2847.065 ml Other 50 ml Output Urine Total 1000 ml General Appearance: mild distress, Other (Patient chemically sedated) HEENT: Atraumatic, PERRLA Lungs: Clear to auscultation, Normal air movement, Other (Mechanical ventilation) Cardiovascular: Normal S1, Normal S2 Abdomen: Normal bowel sounds, Soft, No tenderness, No hepatospenomegaly Genitourinary: No Apparent Abnormalities (Aguero catheter) Musculoskeletal: Other (Unable to assess) Skin: Dry, Intact Psych/Mental Status: Other (Unable to assess) Medications Current Medications Medications Dose Ordered Sig/Mindy Route Start Time Stop Time Status Last Admin Dose Admin Norepinephrine Bitartrate 250 ml @ 3.75 mls/hr Q24H IV 05/22/24 09:00 05/23/24 23:15 3.75 MLS/HR Ceftriaxone Sodium 50 ml @ 100 mls/hr DAILY@09 IV 05/22/24 09:00 05/27/24 09:00 100 MLS/HR Morphine Sulfate 2 mg Q30MP PRN IV 05/22/24 09:00 UNV Morphine Sulfate 2 mg Q30M PRN IV 05/22/24 09:30 Enoxaparin Sodium 30 mg DAILY SC 05/22/24 10:00 05/28/24 08:37 30 MG Acetaminophen 650 mg Q6HP PRN PO 05/22/24 09:00 05/26/24 13:00 650 MG Nitroglycerin 0.4 mg Q5MINP PRN SL 05/22/24 09:00 UNV Nitroglycerin 0.4 mg Q5MINP PRN SL 05/22/24 09:00 Propofol 100 ml @ 3.06 mls/hr Q24H IV 05/22/24 13:45 05/28/24 00:05 9.18 MLS/HR Fentanyl Citrate 250 ml @ 2.5 mls/hr Q24H IV 05/22/24 14:45 05/28/24 02:39 7.5 MLS/HR Aspirin 81 mg DAILY PO 05/23/24 10:00 05/28/24 08:36 81 MG Atorvastatin Calcium 40 mg HS PO 05/22/24 22:00 05/27/24 21:43 40 MG Azithromycin 250 ml @ 125 mls/hr DAILY IV 05/23/24 10:00 05/28/24 08:37 125 MLS/HR Albuterol 2.5 mg Q4HR NEB 05/23/24 14:00 05/28/24 06:13 2.5 MG Ipratropium [place] 0.5 mg Q4HR NEB 05/23/24 14:00 05/28/24 06:13 0.5 MG Midazolam HCl 50 ml @ 1 mls/hr Q24H IV 05/23/24 12:15 05/25/24 02:40 4 MLS/HR Methylprednisolone Sodium Succinate 40 mg BID IV 05/24/24 22:00 05/28/24 08:36 40 MG Phenylephrine HCl 250 ml @ 30 mls/hr Q8H20M IV 05/24/24 21:00 Hydralazine HCl 10 mg Q6H PRN IV 05/26/24 03:15 05/28/24 09:34 10 MG Dexmedetomidine HCl 400 mcg/ Dextrose 100 ml @ 5.11 mls/hr [id number] IV 05/26/24 15:45 05/28/24 04:26 5.11 MLS/HR Budesonide 0.5 mg BID NEB 05/26/24 22:00 05/28/24 06:13 0.5 MG Labetalol HCl 20 mg Q4HPRN PRN IV 05/26/24 18:00 05/27/24 08:51 20 MG Amino Acids 0 ml @ 0 mls/hr PER PHARMACY IV 05/27/24 06:00 Sodium Chloride 1,000 ml @ 75 mls/hr [id number] IV 05/27/24 07:20 05/28/24 00:05 75 MLS/HR Diagnostic Test (Pha) 1 strip Q6HR 05/27/24 12:00 05/28/24 05:32 1 STRIP Insulin Human Regular FOLLOW SLIDING SCALE Q6HR SC 05/27/24 12:00 05/28/24 05:33 4 UNITS Dextrose 50 ml UD IV 05/27/24 11:00 Amino Acids/ Electrolytes/ Dextrose 1,000 ml @ 41 mls/hr DAILY@2200 IV 05/27/24 22:00 05/27/24 21:43 41 MLS/HR Laboratory Results Laboratory Tests 05/28/24 04:46 Chemistry Test 05/28/24 04:46 Calcium Level 9.5 mg/dL (8.7-10.4) Urinalysis Test 05/22/24 05:01 Urine Color Light-yellow (Yellow) Urine Clarity Clear (Clear) Urine pH 5.5 (5.0-9.0) Urine Specific [place] 1.011 (1.001-1.035) Urine Protein Trace (Negative) H Urine Ketones Negative (Negative) Urine Blood 1+ /uL (Negative) H Urine Nitrite Negative (Negative) Urine Bilirubin Negative (Negative) Urine Urobilinogen Normal mg/dL (Negative) Urine Leukocyte Esterase Negative /uL (Negative) Urine RBC 2 /hpf (0 - 3) Urine WBC 1 /hpf (0 - 3) Urine Squamous Epithelial Cells None seen /hpf (<5) Urine Bacteria None seen /hpf (None Seen) Urine Glucose Normal mg/dL (Normal) Blood Gas Results Test 05/27/24 10:12 05/28/24 07:50 Arterial Blood pH 7.420 (7.350-7.450) 7.343 (7.350-7.450) FiO2 % 35.0 45.0 Microbiology Microbiology Date/Time Source Procedure Growth Status 05/26/24 15:50 Bronchial Washings Gram Stain - Final Resulted 05/26/24 15:50 Bronchial Washings Respiratory Culture - Preliminary Resulted 05/24/24 14:28 Nose MRSA Screen - Final Complete 05/22/24 14:50 Blood Blood Culture - Final NO GROWTH AFTER 5 DAYS OF INCUBATION. Complete Labs and/or images reviewed: Labs reviewed by me, Image(s) reviewed by me Assessment/Plan Assessment/Plan Impression: -acute hypoxic respiratory failure mechanical ventilation -COPD with exacerbation -leukocytosis, rule out sepsis -obesity -history of CAD -history of nicotine dependence -NSTEMI type 2 secondary to respiratory failure -acute kidney injury, rule out vasomotor nephropathy -right middle and lower lobe atelectasis Plan: -events patient failed CPAP over the weekend. Patient had bronchoscopy. Preliminary growth with questionable Staphylococcus aureus. Patient continues to have WBC count. Plans for spontaneous breathing trial once appropriate. Discussed with primary nurse to please weaned off sedation and use Precedex as needed. -continue bronchodilators, Pulmicort -continue IV hydration -add vancomycin to antibiotic coverage given preliminary bronchoscopy results -PUD, DVT prophylaxis -repeat labs, chest x-ray in a.m. -long discussion made with the patient's family regarding plan of care. All questions answered. Critical care time spent with patient discussing and formulating plan of care: 40 minutes. This does not include time spent performing procedures. This medical document was created using an electronic medical record system with [employer] system. Although this document has been carefully reviewed, there may still be some phonetic and typographical errors. These areas are purely typographical due to imperfections of the software programs, and do not reflect any compromise in the patient's medical care. Plan discussed with: Patient, Other (RN) My Orders Orders - YOLI KAY NP Procedure Category Date Status Time Vancomycin Per PHA 05/28/24 Transmitted Pharmacy 09:45 Date of Service: May 28, 2024 Billing Provider: YOLI KAY NP Common Visit Codes: [id number] CARE 30-74 MIN YOLI KAY NP May 28, 2024 09:51
[2024-05-28 12:00] LABS: Albumin 3.6 g/dL (3.2-4.8)
[2024-05-28 12:01] LABS: Bilirubin, Direct 0.3 mg/dL (<0.3); Bilirubin, Total 0.6 mg/dL (0.2-1.0); Phosphorus 3.8 mg/dL (2.4-5.1)
[2024-05-28 12:22] LABS: Magnesium 2.6 mg/dL (1.6-2.6); Total Protein 5.5 g/dL (5.7-8.2)
[2024-05-28 12:25] LABS: BUN/Creatinine Ratio 31.2 (10.0-20.0); Blood Urea Nitrogen 29 mg/dL (9-23)
[2024-05-28] MEDS: VANCOMYCIN 1.75GM/350ML 350 ML IV ONE (12:30)
--- NOTE | 2024-05-28 22:10 | DVHPN2 ---
Progress Note - Dictate Date Seen: May 28, 2024 Medical Necessity Reason Pt with a Central, PICC or Fol: Yes The following are medically ne: Garcia Catheter Reason for garcia catheter: Strict I&O Subjective Patient seen and examined at bedside. Intubated on mechanical ventilator. Overnight events reviewed. vital signs Vital Sign Date Time Temp Pulse Resp B/P (MAP) Pulse Ox O2 Delivery O2 Flow Rate FiO2 05/28/24 20:10 75 18 117/54 (75) 94 50 05/28/24 18:45 97.7 207.9 05/28/24 18:44 Mechanical Ventilator Total Intake and Output 05/27/24 05/27/24 05/28/24 15:00 23:00 07:00 Intake Total 1012.300 ml 794.55 ml 1090.215 ml Output Total 600 ml 400 ml Balance 1012.300 ml 194.55 ml 690.215 ml medications Current Medications Medications Dose Ordered Sig/Mindy Route Start Time Stop Time Status Last Admin Dose Admin Norepinephrine Bitartrate 250 ml @ 3.75 mls/hr Q24H IV 05/22/24 09:00 05/23/24 23:15 3.75 MLS/HR Ceftriaxone Sodium 50 ml @ 100 mls/hr DAILY@09 IV 05/22/24 09:00 05/28/24 09:00 100 MLS/HR Morphine Sulfate 2 mg Q30MP PRN IV 05/22/24 09:00 UNV Morphine Sulfate 2 mg Q30M PRN IV 05/22/24 09:30 Enoxaparin Sodium 30 mg DAILY SC 05/22/24 10:00 05/28/24 08:37 30 MG Acetaminophen 650 mg Q6HP PRN PO 05/22/24 09:00 05/26/24 13:00 650 MG Nitroglycerin 0.4 mg Q5MINP PRN SL 05/22/24 09:00 UNV Nitroglycerin 0.4 mg Q5MINP PRN SL 05/22/24 09:00 Propofol 100 ml @ 3.06 mls/hr Q24H IV 05/22/24 13:45 05/28/24 17:53 6.12 MLS/HR Fentanyl Citrate 250 ml @ 2.5 mls/hr Q24H IV 05/22/24 14:45 05/28/24 02:39 7.5 MLS/HR Aspirin 81 mg DAILY PO 05/23/24 10:00 05/28/24 08:36 81 MG Atorvastatin Calcium 40 mg HS PO 05/22/24 22:00 05/28/24 21:07 40 MG Azithromycin 250 ml @ 125 mls/hr DAILY IV 05/23/24 10:00 05/28/24 08:37 125 MLS/HR Albuterol 2.5 mg Q4HR NEB 05/23/24 14:00 05/28/24 18:44 2.5 MG Ipratropium [place] 0.5 mg Q4HR NEB 05/23/24 14:00 05/28/24 18:45 0.5 MG Midazolam HCl 50 ml @ 1 mls/hr Q24H IV 05/23/24 12:15 05/25/24 02:40 4 MLS/HR Methylprednisolone Sodium Succinate 40 mg BID IV 05/24/24 22:00 05/28/24 21:07 40 MG Phenylephrine HCl 250 ml @ 30 mls/hr Q8H20M IV 05/24/24 21:00 Hydralazine HCl 10 mg Q6H PRN IV 05/26/24 03:15 05/28/24 17:56 10 MG Dexmedetomidine HCl 400 mcg/ Dextrose 100 ml @ 5.11 mls/hr [id number] IV 05/26/24 15:45 05/28/24 13:48 5.11 MLS/HR Budesonide 0.5 mg BID NEB 05/26/24 22:00 05/28/24 18:44 0.5 MG Labetalol HCl 20 mg Q4HPRN PRN IV 05/26/24 18:00 05/27/24 08:51 20 MG Amino Acids 0 ml @ 0 mls/hr PER PHARMACY IV 05/27/24 06:00 Sodium Chloride 1,000 ml @ 75 mls/hr [id number] IV 05/27/24 07:20 05/28/24 21:18 75 MLS/HR Diagnostic Test (Pha) 1 strip Q6HR 05/27/24 12:00 05/28/24 17:42 1 STRIP Insulin Human Regular FOLLOW SLIDING SCALE Q6HR SC 05/27/24 12:00 05/28/24 18:01 2 UNITS Dextrose 50 ml UD IV 05/27/24 11:00 Amino Acids/ Electrolytes/ Dextrose 1,000 ml @ 41 mls/hr DAILY@2200 IV 05/27/24 22:00 05/28/24 21:07 41 MLS/HR Vancomycin HCl 0 ml @ 0 mls/hr UD IV 05/28/24 09:45 Vancomycin HCl 250 ml @ 200 mls/hr Q24H IV 05/29/24 10:00 objective Gen.: Patient lying in bed in medical ICU. Intubated on mechanical ventilator. Head: Normocephalic, atraumatic. Eyes: PERRLA. Ears: Normal external anatomy. Throat: Endotracheal tube and orogastric tube in place. Neck: Supple, trachea midline. Chest: Transmitted breath sounds bilaterally. Decreased air entry bilaterally. No wheezing. Bibasilar crackles. Cardiovascular: Positive S1, positive S2. Regular rate and rhythm. Abdomen: Positive bowel sounds in all 4 quadrants. Soft, nontender, nondistended. : Garcia in place. Normal external genitalia. Rectal: Deferred. Skin: Warm, dry. Intact. Extremities: 2+ radial pulses bilaterally. No lower extremity edema. Neuro: Off sedation laboratory and microbiology Laboratory Tests 05/28/24 04:46 Test 05/28/24 04:46 Range/Units Serum Glucose 185 H 74-106 mg/dL Assessment/Plan Impression: Acute hypoxic respiratory failure Acute hypercarbic respiratory failure On mechanical ventilator COPD exacerbation Hx of nicotine dependence Morbid obesity, BMI 40 Atelectasis Events: Currently on CPAP with PS 10, PEEP of 5, FiO2 50% Fentanyl for analgesia On Precedex drip CT head showed no acute intracranial process. Off pressors, hemodynamically stable ABG reviewed, notable for acidemia CXR reviewed, demonstrates left basilar atelectasis, stable. Devices in place. Continue bronchodilators. Continue antibiotics. Continue IV steroids IV fluids at 75 ml/hr Clinimix for nutritional support S/p therapeutic bronchoscopy with LLL BAL on 05/26/24 - cleared mucous plugging from L6-L10 and R6-R10 Labs and imaging reviewed. Rest of plan as noted below. Plan: s/p intubation on mechanical ventilator. CXR image and report reviewed. Devices in place. Pulmonary vascular congestion. No pneumothorax. No pleural effusion. Vent settings: AC mode; RR 18, VT 500, PEEP 5, FiO2 35% Continuous med neb ordered. Titrate FIO2 to keep O2 saturation above 90%. VAP bundle. Daily ABG and CXR while intubated Off sedation Continue bronchodilators. Continue antibiotics. F/u cultures. Pressors if necessary for hemodynamic support Titrate to keep mean arterial pressure greater than 65 mmHg. Monitor renal function Monitor electrolytes. Supplement as necessary. Monitor ins and outs. Maintain euvolemia. Morbid Obesity - complicates all care GI prophylaxis. DVT prophylaxis. Prognosis: Poor given patient's multiple co-morbidities. Condition: Critical Rest of plan per hospitalist and other consultants. A total of 35 minutes of critical care time was spent reviewing the patient record, examining the patient, making a diagnostic and therapeutic plan, discussing this plan with the medical personnel, following up on diagnostic studies and following the patient for clinical stability excluding any and all procedures. At least 50% of this time was spent in direct, [id number] contact. Thank you, RAFA Thurman, for allowing me to participate in this patient's care. Further recommendations will depend on the patient's clinical course. Please do not hesitate to contact me if you have any questions or concerns. This medical document was created using an electronic medical record system with [employer] dictation system. Although these documentations are being carefully reviewed, there may still be some phonetic and typographical changes. The errors are purely typographical, due to imperfection on the software program, and do not reflect any compromise in the patient's medical care. Dietary Evaluation Review Comments: 1. Recommend 2 g Na CCHO-60 diet as tolearated if Pt is awake, of vent and passes speech eval. 2. Consider TF Glucerna @ 40ml/hr (58g pro 1152 kcal in 24 hrs in FS), if GI accessible, EN is the choice for nutrition support. Add Clinimix 41ml/hr x 24 hrs for the addiitonal protein needs, 3. Consider TPN per pharmacy if NPO > 7 days and EN not the option of nutrition support. Expected Outcomes/Goals: Improved breathing, gradual wt loss. on PO 2 g Na CCHo-60 diet texture as tolerated. Plan discussed with: Other (MALICK Davila) Critical Care Time(min): 35 RYAN ROMERO MD May 28, 2024 22:10
[2024-05-29] VITALS (93 sets, daily range): BP systolic 101–192; BP diastolic 51–123; PULSE 59–129; RESP 12–33; TEMP 98.4–100.6; O2SAT 81–97
[2024-05-29 05:15] LABS: Basophils # (auto) 0.1 10 ^3/uL (0-0.2); Basophils % (auto) 0.8 % (0.0-2.0); Eosinophils # (auto) 0 10 ^3/uL (0-0.8); Hematocrit 41.3 % (41.0-53.0); Hemoglobin 13.9 g/dL (13.5-17.5); Lymphocytes # (auto) 0.3 10 ^3/uL (0.4-5.4); Lymphocytes % (auto) 2.6 % (10.0-50.0); Mean Corpuscular Hemoglobin 30.8 pg (28.0-32.0); Mean Corpuscular Hgb Conc. 33.6 g/dL (32.0-36.0); Mean Corpuscular Volume 91.6 fL (80.0-100.0); Monocytes # (auto) 0.6 10 ^3/uL (0-1.3); Monocytes % (auto) 5.7 % (0.0-12.0); Neutrophils # (auto) 9.8 10 ^3/uL (1.6-8.6); Neutrophils % (auto) 90.9 % (37.0-80.0); Nucleated Red Blood Cells % 0.1 %; Platelet Count (auto) 190 10^3/uL (140-450); Red Blood Cells 4.51 10^6/uL (4.5-5.90); Red Cell Distribution Width 13.4 % (11.8-14.3); White Blood Cell 10.8 10^3/uL (4.4-10.8)
[2024-05-29 05:24] LABS: Alanine Aminotransferase 26 U/L (7-40); Anion Gap 6 (5-15); Aspartate Aminotransferase 35 U/L (13-40); BUN/Creatinine Ratio 35.9 (10.0-20.0); Carbon Dioxide 30 mmol/L (20-31); Magnesium 2.3 mg/dL (1.6-2.6); Potassium 4.5 mmol/L (3.5-5.1); Sodium 145 mmol/L (136-145)
--- NOTE | 2024-05-29 05:24 | DVH ---
CHEST RADIOGRAPH Indication: acute resp failure Technique: Single frontal view of the chest was obtained COMPARISON: XY CHEST PORTABLE on DOS: 05/28/24, XY CHEST PORTABLE on DOS: 05/27/24, XY CHEST PORTABLE o n DOS: 05/26/24, XY CHEST PORTABLE on DOS: 05/26/24, XY CHEST PORTABLE on DOS: 05/25/24 FINDINGS: Lines and Tubes: Endotracheal tube, enteric catheter and right central venous catheter in satisfactor y position. Lungs: Congestion Pleura: No effusion. No pneumothorax. Cardiomediastinal contours: Unremarkable Bones: Unremarkable IMPRESSION: Lines and tubes in satisfactory position. No significant interval change.
[2024-05-29 05:25] LABS: Bilirubin, Total 0.9 mg/dL (0.2-1.0); Phosphorus 2.6 mg/dL (2.4-5.1)
[2024-05-29 05:27] LABS: Alkaline Phosphatase 41 U/L (46-116); Blood Urea Nitrogen 28 mg/dL (9-23); Calcium 8.7 mg/dL (8.7-10.4); Chloride 109 mmol/L (98-107); Glucose 157 mg/dL (74-106); Total Protein 5.1 g/dL (5.7-8.2)
[2024-05-29 07:52] LABS: Base Excess -1.2 mmol/L (-2.0-3.0)
--- NOTE | 2024-05-29 10:25 | DVHPN2 ---
Subjective Patient intubated and sedated. Reviewed: Care Plan, H&P, Labs, Medications Changes from previous H/P or p: No Changes General: Per HPI Eyes: No Pain, No Vision change, No Conjunctivae inflammation, No Eyelid inflammation, No Other, No Redness ENT: No Ear pain, No Ear discharge, No Nose pain, No Nose discharge, No Nose congestion, No Mouth pain, No Mouth swelling, No Throat pain, No Throat swelling, No Other Cardiovascular: No Chest Pain, No Palpitations, No Orthopnea, No Paroxysmal Noc. Dyspnea, No Edema, No Lt Headedness; Other (Chest tightness) Respiratory: No Cough, No Dry; Shortness of breath; No SOB with excertion, No Wheezing, No Hemoptysis, No Pleuritic Pain, No Sputum, No Other Gastrointestinal: No Nausea, No Vomiting, No Abdominal Pain, No Diarrhea, No Constipation, No Melena, No Hematochezia, No Other Genitourinary: No Dysuria, No Frequency, No Incontinence, No Hematuria, No Retention, No Other Musculoskeletal: No other, No neck pain, No shoulder pain, No arm pain, No back pain, No hand pain, No leg pain, No foot pain Skin: No Rash, No Lesions, No Jaundice, No Bruising, No Other Objective Vitals Vital Signs Date Time Temp Pulse Resp B/P (MAP) Pulse Ox O2 Delivery O2 Flow Rate FiO2 05/29/24 10:00 18 97 Mechanical Ventilator+ 50 50 05/29/24 10:00 109 05/29/24 08:39 176/92 05/29/24 06:45 98.6 209.5 Intake/Output Intake and Output 05/29/24 07:00 Intake Total 3801.92 ml Output Total 1475 ml Balance 2326.92 ml Intake Oral 30 ml IV Total 3771.92 ml Output Urine Total 1475 ml General Appearance: mild distress, Other (Patient chemically sedated) HEENT: Atraumatic, PERRLA Lungs: Clear to auscultation, Normal air movement, Other (Mechanical ventilation) Cardiovascular: Normal S1, Normal S2 Abdomen: Normal bowel sounds, Soft, No tenderness, No hepatospenomegaly Genitourinary: No Apparent Abnormalities (Aguero catheter) Musculoskeletal: Other (Unable to assess) Skin: Dry, Intact Psych/Mental Status: Other (Unable to assess) Medications Current Medications Medications Dose Ordered Sig/Mindy Route Start Time Stop Time Status Last Admin Dose Admin Norepinephrine Bitartrate 250 ml @ 3.75 mls/hr Q24H IV 05/22/24 09:00 05/23/24 23:15 3.75 MLS/HR Ceftriaxone Sodium 50 ml @ 100 mls/hr DAILY@09 IV 05/22/24 09:00 05/28/24 09:00 100 MLS/HR Morphine Sulfate 2 mg Q30MP PRN IV 05/22/24 09:00 UNV Morphine Sulfate 2 mg Q30M PRN IV 05/22/24 09:30 Enoxaparin Sodium 30 mg DAILY SC 05/22/24 10:00 05/29/24 08:23 30 MG Acetaminophen 650 mg Q6HP PRN PO 05/22/24 09:00 05/26/24 13:00 650 MG Nitroglycerin 0.4 mg Q5MINP PRN SL 05/22/24 09:00 UNV Nitroglycerin 0.4 mg Q5MINP PRN SL 05/22/24 09:00 Propofol 100 ml @ 3.06 mls/hr Q24H IV 05/22/24 13:45 05/29/24 08:22 12.24 MLS/HR Fentanyl Citrate 250 ml @ 2.5 mls/hr Q24H IV 05/22/24 14:45 05/28/24 02:39 7.5 MLS/HR Aspirin 81 mg DAILY PO 05/23/24 10:00 05/29/24 08:23 81 MG Atorvastatin Calcium 40 mg HS PO 05/22/24 22:00 05/28/24 21:07 40 MG Azithromycin 250 ml @ 125 mls/hr DAILY IV 05/23/24 10:00 05/29/24 08:24 125 MLS/HR Albuterol 2.5 mg Q4HR NEB 05/23/24 14:00 05/29/24 06:13 2.5 MG Ipratropium [place] 0.5 mg Q4HR NEB 05/23/24 14:00 05/29/24 06:13 0.5 MG Midazolam HCl 50 ml @ 1 mls/hr Q24H IV 05/23/24 12:15 05/25/24 02:40 4 MLS/HR Methylprednisolone Sodium Succinate 40 mg BID IV 05/24/24 22:00 05/29/24 08:23 40 MG Phenylephrine HCl 250 ml @ 30 mls/hr Q8H20M IV 05/24/24 21:00 Hydralazine HCl 10 mg Q6H PRN IV 05/26/24 03:15 05/29/24 08:24 10 MG Dexmedetomidine HCl 400 mcg/ Dextrose 100 ml @ 5.11 mls/hr [id number] IV 05/26/24 15:45 05/28/24 13:48 5.11 MLS/HR Budesonide 0.5 mg BID NEB 05/26/24 22:00 05/29/24 06:13 0.5 MG Labetalol HCl 20 mg Q4HPRN PRN IV 05/26/24 18:00 05/29/24 01:57 20 MG Amino Acids 0 ml @ 0 mls/hr PER PHARMACY IV 05/27/24 06:00 Sodium Chloride 1,000 ml @ 75 mls/hr [id number] IV 05/27/24 07:20 05/28/24 21:18 75 MLS/HR Diagnostic Test (Pha) 1 strip Q6HR 05/27/24 12:00 05/29/24 06:28 1 STRIP Insulin Human Regular FOLLOW SLIDING SCALE Q6HR SC 05/27/24 12:00 05/29/24 06:28 4 UNITS Dextrose 50 ml UD IV 05/27/24 11:00 Amino Acids/ Electrolytes/ Dextrose 1,000 ml @ 41 mls/hr DAILY@2200 IV 05/27/24 22:00 05/28/24 21:07 41 MLS/HR Vancomycin HCl 0 ml @ 0 mls/hr UD IV 05/28/24 09:45 Vancomycin HCl 250 ml @ 200 mls/hr Q24H IV 05/29/24 10:00 Laboratory Results Laboratory Tests 05/29/24 04:35 Chemistry Test 05/29/24 04:35 Albumin 3.0 g/dL (3.2-4.8) L Calcium Level 8.7 mg/dL (8.7-10.4) Magnesium Level 2.3 mg/dL (1.6-2.6) Phosphorus Level 2.6 mg/dL (2.4-5.1) Total Protein 5.1 g/dL (5.7-8.2) L LFT Test 05/29/24 04:35 Alanine Aminotransferase (ALT) 26 U/L (7-40) Alkaline Phosphatase 41 U/L (46-116) L Aspartate Amino Transferase (AST) 35 U/L (13-40) Total Bilirubin 0.9 mg/dL (0.2-1.0) Urinalysis Test 05/22/24 05:01 Urine Color Light-yellow (Yellow) Urine Clarity Clear (Clear) Urine pH 5.5 (5.0-9.0) Urine Specific [place] 1.011 (1.001-1.035) Urine Protein Trace (Negative) H Urine Ketones Negative (Negative) Urine Blood 1+ /uL (Negative) H Urine Nitrite Negative (Negative) Urine Bilirubin Negative (Negative) Urine Urobilinogen Normal mg/dL (Negative) Urine Leukocyte Esterase Negative /uL (Negative) Urine RBC 2 /hpf (0 - 3) Urine WBC 1 /hpf (0 - 3) Urine Squamous Epithelial Cells None seen /hpf (<5) Urine Bacteria None seen /hpf (None Seen) Urine Glucose Normal mg/dL (Normal) Blood Gas Results Test 05/29/24 07:20 Arterial Blood pH 7.332 (7.350-7.450) FiO2 % 50.0 Microbiology Microbiology Date/Time Source Procedure Growth Status 05/26/24 15:50 Bronchial Washings Gram Stain - Final Resulted 05/26/24 15:50 Bronchial Washings Respiratory Culture - Preliminary Resulted 05/24/24 14:28 Nose MRSA Screen - Final Complete 05/22/24 14:50 Blood Blood Culture - Final NO GROWTH AFTER 5 DAYS OF INCUBATION. Complete Labs and/or images reviewed: Labs reviewed by me, Image(s) reviewed by me Assessment/Plan Assessment/Plan Impression: -acute hypoxic respiratory failure mechanical ventilation -COPD with exacerbation -leukocytosis, rule out sepsis -obesity -history of CAD -history of nicotine dependence -NSTEMI type 2 secondary to respiratory failure -acute kidney injury, rule out vasomotor nephropathy -right middle and lower lobe atelectasis -rule out beta-ramon withdrawal Plan: -patient was sedated. Slightly febrile. Discussed case with primary nurse, with plans for CPAP once sedation has been weaned. Antipyretics will be ordered. Beta blockers will be restarted, with possible beta-ramon withdrawal noted. -continue bronchodilators, Pulmicort -continue IV hydration -add vancomycin to antibiotic coverage given preliminary bronchoscopy results -PUD, DVT prophylaxis -repeat labs, chest x-ray in a.m. -long discussion made with the patient's family regarding plan of care. All questions answered. Critical care time spent with patient discussing and formulating plan of care: 40 minutes. This does not include time spent performing procedures. This medical document was created using an electronic medical record system with [employer] system. Although this document has been carefully reviewed, there may still be some phonetic and typographical errors. These areas are purely typographical due to imperfections of the software programs, and do not reflect any compromise in the patient's medical care. Plan discussed with: Patient, Other (RN) My Orders Orders - YOLI KAY NP Procedure Category Date Status Time Vancomycin PHA 05/29/24 In Process 1.25gm/250ml 10:00 Vancomycin,Trough LAB 05/31/24 Verified 09:00 Vancomycin Per CARLOS 05/28/24 In Process Pharmacy Protoc 10:45 Chest Portable XY 05/29/24 Resulted 04:00 Cpap/Sed Vacation Med ORDERS 05/30/24 Verified Weaning 05:00 Cpap/Sed Vacation Med ORDERS 05/31/24 Verified Weaning 05:00 Cpap/Sed Vacation Med ORDERS 06/01/24 Verified Weaning 05:00 Cpap/Sed Vacation Med ORDERS 06/02/24 Verified Weaning 05:00 Cpap/Sed Vacation Med ORDERS 06/03/24 Verified Weaning 05:00 Carvedilol Tablet PHA 05/29/24 Verified (Coreg Tablet) 10:30 Date of Service: May 29, 2024 Billing Provider: YOLI KAY NP Common Visit Codes: [id number] CARE 30-74 MIN YOLI KAY NP May 29, 2024 10:25
[2024-05-29] MEDS: VANCOMYCIN 1.25GM/250ML 250 ML IV SCH (10:34)
[2024-05-29] MEDS: CARVEDILOL 3.125 MG TAB PO SCH (11:07)
[2024-05-29] MEDS: IBUPROFEN 100MG/5ML ORAL SUSP 100 MG/5 ML UD GT ONE (11:09)
[2024-05-29 11:42] LABS: Base Excess 1.1 mmol/L (-2.0-3.0)
[2024-05-29] MEDS: FUROSEMIDE 40 MG/4 ML VIAL IV ONE (16:49)
[2024-05-29] MEDS: HALOPERIDOL LACTATE 5 MG/ML INJ VIAL IM PRN (17:41)
--- NOTE | 2024-05-29 18:01 | MEDREC ---
[facility] ASP Intervention Section I [facility] ASP Intervention: Deescalate AB based on CS (PLEASE CONSIDER DE-ESCALATION SINCE RESP CULTURE POSITIVE FOR MSSA ) CECILIA FERRARO PHARMACIST May 29, 2024 18:01
[2024-05-29] MEDS: LEVALBUTEROL HCL 1.25 MG/3 ML NEB NEB SCH (18:20)
--- NOTE | 2024-05-29 18:46 | DVHINCON2 ---
Date of service: May 29, [address] Solares Reason for Consultation Altered History of Present Illness Mr. Jeffry Cummins is a 79 years old right-handed gentleman with a history of hypertension, coronary artery disease, heart attack, COPD, he was admitted on 05/22/2024 with a chief complaint of altered mental status, the patient was extubated on 05/29/2024, he is oriented to person place, the history is obtained from his daughter, I have also reviewed chart and talked to his nurse On 05/22/2024, the patient was had coughing, and shortness breath, he was his family to call ambulance for medical attention, in the ER, the patient had deteriorated mental status changes and became nonresponsive, and the patient was intubated. The tests showed evidence of acute on chronic respiratory failure, respiratory acidosis With appropriate treatment, the patient has had improvement, and was extubated this afternoon Nurse reports the patient was agitated, Haldol 2.5 mg intramuscular did not help He was no history of stroke, memory problems/dementia or seizure disorder Urinalysis, 05/22/2024: WBC: 1, urine leukocyte esterase: Negative ABG, 05/1924: Hypoxia, compensated respiratory acidosis, 05/29/2024: Respiratory acidosis WBC/HB/PLT/MCV, 05/25/2024: 17.9/14.4/211/93.1, 05/29/2024: 10.8/13.9/190/91.6 BUN/CR, 05/29/2024: 28/0.78 HGB A1c, 05/23/24: 6.5 Liver function tests, 05/29/2024: Unremarkable TG/HDL/LDL/HDL, 05/23/2024: 118/112/48/49 TSH, 05/23/2024: 0.71 Chest x-ray, 05/24/2024: Bilateral opacities which may reflect atelectasis.(The endotracheal tube terminates 3.3 cm above the karoline) CT head, 05/20/2024: 1. Global brain atrophy and chronic schema changes without evidence of acute intracranial process. 2. Punctate intra-axial and extra-axial calcifications may be due to remote history of TORCH infection. 3. Mild bilateral maxillary and ethmoid sinus disease. Past Medical History Hypertension, coronary artery disease, heart attack, COPD, obesity Past Surgical History PTCA Family History Hypertension, diabetes, heart disease Social History He was tobacco smoke, but no history of alcohol or recreational substance abuse Allergies: Coded Allergies: Clopidogrel (Verified Allergy, Unknown, 02/11/19) Home Meds Reported Medications Ipratropium-Albuterol (COMBIVENT RESPIMAT) Respimat Aer, 1 PUFF IN Q4-6HR PRN for 40 Days, #8 05/24/24 Montelukast Sodium (MONTELUKAST SODIUM) 10 Mg Tab, 1 TAB PO DAILY for 30 Days, #30 05/24/24 Dupilumab (Dupixent) 300 Mg/2 Ml Inj, 300 MG SC EVERY 2 WEEKS for 28 Days, #4 05/24/24 Ceaugbfyuz-Rykbjypukplkbo-Fyut (Breztri Aerosphere 160-9-4.8 Mcg/Act) 1 Aer Aer, 2 PUFF IN BID for 30 Days, #10.7 05/24/24 Prednisone (Prednisone) 10 Mg Tab, 1 TAB PO DAILY for 30 Days, #30 05/24/24 Sacubitril-Valsartan (Entresto 24-26 mg) 1 Tab Tab, 1 TAB PO BID for 90 Days, #180 05/22/24 Tamsulosin Hcl (Tamsulosin Hcl) 0.4 Mg Cap, 1 CAP PO DAILY for 90 Days, #90 05/22/24 Atorvastatin Calcium (ATORVASTATIN CALCIUM) 40 Mg Tab, 1 TAB PO DAILY for 90 Days, #90 05/22/24 Carvedilol (Carvedilol) 12.5 Mg Tab, 1 TAB PO BID for 90 Days, #180 05/22/24 Current Medications Current Medications Medications (Trade) Dose Ordered Sig/Mindy Route PRN Reason Start Time Stop Time Status Last Admin Vancomycin HCl 250 ml @ 200 mls/hr Q24H IV 05/29/24 10:00 05/29/24 10:34 Carvedilol (Coreg Tablet) 6.25 mg Q12HR PO 05/29/24 10:30 05/29/24 11:07 Haloperidol Lactate (Haldol) 2.5 mg Q8HP PRN IM AGITATION 05/29/24 15:45 05/29/24 17:41 Levalbuterol HCl (Xopenex Medneb) 0.625 mg Q4HR NEB 05/29/24 18:00 05/29/24 18:20 Review of Systems As above, the other systems are negative Vital Signs Vital Signs Date Time Temp Pulse Resp B/P (MAP) Pulse Ox O2 Delivery O2 Flow Rate FiO2 05/29/24 18:15 93 Bi-pap/CPAP 05/29/24 18:15 40 40 05/29/24 18:15 110 167/97 05/29/24 18:00 27 12 05/29/24 16:30 99.7 211.5 Physical Exam GENERAL EXAM: General: the patient is well developed and nourished. No acute distress. HEENT: Normocephalic, neck is supple, no carotid bruits. No mass. RESPIRATORY: Normal respiratory effort with symmetrical lung expansion. Lungs clear to auscultation. CARDIOVASCULAR: Regular rate and rhythm with no murmurs. S1, S2. ABDOMEN: Soft, nontender, normal bowel sound NEUROLOGICAL: MENTAL STATUS: HPI SPEECH, LANGUAGE, HIGHER CORTICAL FUNCTION: He understanding spoken language, he was not able to talk because of BiPAP treatment CRANIAL NERVES: #2: Intact visual downing to confrontation. #3,4,6: Pupils are equal, round and reactive. EOMs full and conjugate #5: Facial sensation intact in all three divisions bilaterally. Mandibular strength intact. #7: Facial muscles symmetrical and strength intact. #8: Hearing grossly normal to voice. #9,10: Deferred #11: Deferred #12: Deferred SENSATION: Sensation to touch and pinprick is normal. MOTOR: Normal tone in the upper and lower extremity. Normal muscle bulk. No fasciculations. No abnormal movements or posturing, he moves the arms and legs REFLEXES: Deep tendon reflexes normal and symmetrical. No pathological reflexes. CEREBELLAR/COORDINATION: Deferred GAIT/STATION: deferred. Labs/Diagnostic Data Labs Test 05/29/24 16:52 05/29/24 11:30 05/29/24 07:20 05/29/24 04:35 Range/Units POC Glucose 123 H 70-106 mg/dl Blood Gas Specimen Type Arterial Blood Gas Sample Site Right radial Blood Gas Patient Temperature 37.0 Arterial Blood Date Drawn [id number] Arterial Blood pH 7.367 7.350-7.450 Arterial Blood Partial Pressure CO2 48.4 H 35.0-48.0 mmHg Arterial Blood Partial Pressure O2 77.7 L 83.0-108.0 mmHg Arterial Blood HCO3 27.2 21.0-28.0 mmol/L Arterial Blood Oxygen Saturation 94.3 94.0-98.0 % Arterial Blood Base Excess 1.1 -2.0-3.0 mmol/L Arterial Blood Oxyhemoglobin 93.4 L 94.0-98.0 % Arterial Blood Carboxyhemoglobin 0.6 0.5-1.5 % Arterial Blood Methemoglobin 0.4 0.0-1.5 % Jun Test Modified Blood Gas Total Hemoglobin 15.10 13.5-17.5 g/dL Blood Gas Modality Vent - cpap FiO2 % 50.0 Blood Gas Pressure Support 8 Blood Gas PEEP or CPAP 5.0 Blood Gas Set Respiration Rate 18.0 Blood Gas Tidal Volume 500.0 White Blood Count 10.8 # 4.4-10.8 10^3/uL Red Blood Count 4.51 4.5-5.90 10^6/uL Hemoglobin 13.9 13.5-17.5 g/dL Hematocrit 41.3 41.0-53.0 % Mean Corpuscular Volume 91.6 80.0-100.0 fL Mean Corpuscular Hemoglobin 30.8 28.0-32.0 pg Mean Corpuscular Hemoglobin Concent 33.6 32.0-36.0 g/dL Red Cell Distribution Width 13.4 11.8-14.3 % Platelet Count 190 140-450 10^3/uL Mean Platelet Volume 8.5 6.9-10.8 fL Neutrophils (%) (Auto) 90.9 H 37.0-80.0 % Lymphocytes (%) (Auto) 2.6 L 10.0-50.0 % Monocytes (%) (Auto) 5.7 0.0-12.0 % Eosinophils (%) (Auto) 0.0 0.0-7.0 % Basophils (%) (Auto) 0.8 0.0-2.0 % Neutrophils # (Auto) 9.8 H 1.6-8.6 10 ^3/uL Lymphocytes # (Auto) 0.3 L 0.4-5.4 10 ^3/uL Monocytes # (Auto) 0.6 0-1.3 10 ^3/uL Eosinophils # (Auto) 0 0-0.8 10 ^3/uL Basophils # (Auto) 0.1 0-0.2 10 ^3/uL Nucleated Red Blood Cells 0.1 % Sodium Level 145 136-145 mmol/L Potassium Level 4.5 3.5-5.1 mmol/L Chloride Level 109 H 98-107 mmol/L Carbon Dioxide Level 30 20-31 mmol/L Anion Gap 6 5-15 Blood Urea Nitrogen 28 H 9-23 mg/dL Creatinine 0.78 0.700-1.30 mg/dL Glomerular Filtration Rate Calc 91 >90 mL/min BUN/Creatinine Ratio 35.9 H 10.0-20.0 Serum Glucose 157 H 74-106 mg/dL Calcium Level 8.7 8.7-10.4 mg/dL Phosphorus Level 2.6 2.4-5.1 mg/dL Magnesium Level 2.3 1.6-2.6 mg/dL Total Bilirubin 0.9 0.2-1.0 mg/dL Aspartate Amino Transferase (AST) 35 13-40 U/L Alanine Aminotransferase (ALT) 26 7-40 U/L Alkaline Phosphatase 41 L 46-116 U/L Total Protein 5.1 L 5.7-8.2 g/dL Albumin 3.0 L 3.2-4.8 g/dL Test 05/28/24 04:46 05/27/24 10:12 05/23/24 10:24 05/23/24 05:45 Range/Units Direct Bilirubin 0.3 <0.3 mg/dL Blood Gas Spontaneous Rate 19 Blood Gas Inspiratory Pressure 19.0 Blood Gas Comments i-time 0.9 sec. Hemoglobin A1c 6.5 H <5.7 % A1C Triglycerides Level 118 < 150 mg/dL Cholesterol Level 112 < 200 mg/dL LDL Cholesterol 48 < 100 mg/dL HDL Cholesterol 49 40-59 mg/dL Thyroid Stimulating Hormone (TSH) 0.71 0.55-4.78 uIU/mL Test 05/22/24 16:24 05/22/24 14:50 05/22/24 11:40 05/22/24 08:20 Range/Units Blood Gas Spontaneous Tidal Volume 550 Lactic Acid Level 1.4 0.4-2.0 mmol/L Blood Gas Critical Value Read Back Yes Blood Gas Notified Whom jane Thurman np Blood Gas Notified Time [id number] Blood Gas Notified By Nasir henry rrt Blood Gas EPAP 8 Blood Gas IPAP 18 Test 05/22/24 08:17 05/22/24 05:50 05/22/24 05:01 05/22/24 04:19 Range/Units Troponin I High Sensitivity 73 *H </=54 ng/L Influenza Type A Antigen Negative Negative Influenza Type B Antigen Negative Negative SARS-CoV-2 Antigen (Rapid) Negative NEGATIVE Urine Color Light-yellow Yellow Urine Clarity Clear Clear Urine pH 5.5 5.0-9.0 Urine Specific [place] 1.011 1.001-1.035 Urine Protein Trace H Negative Urine Ketones Negative Negative Urine Blood 1+ H Negative /uL Urine Nitrite Negative Negative Urine Bilirubin Negative Negative Urine Urobilinogen Normal Negative mg/dL Urine Leukocyte Esterase Negative Negative /uL Urine RBC 2 0 - 3 /hpf Urine WBC 1 0 - 3 /hpf Urine Squamous Epithelial Cells None seen <5 /hpf Urine Bacteria None seen None Seen /hpf Urine Glucose Normal Normal mg/dL D-Dimer, Quantitative 0.79 H 0.0-0.49 mg/L FEU B-Type Natriuretic Peptide 326.61 0-100 pg/mL Microbiology Date/Time Source Procedure Growth Status 05/26/24 15:50 Bronchial Washings Gram Stain - Final Complete 05/26/24 15:50 Respiratory Culture - Final Staphylococcus aureus Complete 05/24/24 14:28 Nose MRSA Screen - Final Complete 05/22/24 14:50 Blood Blood Culture - Final NO GROWTH AFTER 5 DAYS OF INCUBATION. Complete Assessment Altered mental status Hypoxic encephalopathy Metabolic encephalopathy Toxic encephalopathy Acute on chronic respiratory failure Respiratory acidosis Pneumonia Plan/Recommendation Monitoring Supportive treatment ICU care Oxygen Stabilize vitals Respiratory support/BiPAP Respiratory treatment IV antibiotics Haldol 5 mg intramuscular Q 8 hours p.r.n. for agitation DVT prophylax/Lovenox GI prophylax More recommendation per clinical course Plan discussed with: Daughter, Other CALEB NORMAN MD May 29, 2024 18:46
[2024-05-29] MEDS ORDERED: HALOPERIDOL LACTATE 5 MG/ML INJ VIAL IM PRN (19:00)
--- NOTE | 2024-05-29 20:59 | DVHPN2 ---
Progress Note - Dictate Date Seen: May 29, 2024 Medical Necessity Reason Pt with a Central, PICC or Fol: Yes The following are medically ne: Garcia Catheter Reason for garcia catheter: Strict I&O Subjective Patient seen and examined at bedside. Intubated on mechanical ventilator. Overnight events reviewed. vital signs Vital Sign Date Time Temp Pulse Resp B/P (MAP) Pulse Ox O2 Delivery O2 Flow Rate FiO2 05/29/24 20:00 100.2 123 21 94 212.4 05/29/24 20:00 Mechanical Ventilator+ 40 40 05/29/24 20:00 12 Total Intake and Output 05/28/24 05/28/24 05/29/24 15:00 23:00 07:00 Intake Total 1649.72 ml 1025.98 ml 1126.22 ml Output Total 725 ml 750 ml Balance 1649.72 ml 300.98 ml 376.22 ml medications Current Medications Medications Dose Ordered Sig/Mindy Route Start Time Stop Time Status Last Admin Dose Admin Norepinephrine Bitartrate 250 ml @ 3.75 mls/hr Q24H IV 05/22/24 09:00 05/23/24 23:15 3.75 MLS/HR Ceftriaxone Sodium 50 ml @ 100 mls/hr DAILY@09 IV 05/22/24 09:00 05/29/24 11:53 100 MLS/HR Morphine Sulfate 2 mg Q30MP PRN IV 05/22/24 09:00 UNV Morphine Sulfate 2 mg Q30M PRN IV 05/22/24 09:30 Enoxaparin Sodium 30 mg DAILY SC 05/22/24 10:00 05/29/24 08:23 30 MG Acetaminophen 650 mg Q6HP PRN PO 05/22/24 09:00 05/26/24 13:00 650 MG Nitroglycerin 0.4 mg Q5MINP PRN SL 05/22/24 09:00 UNV Nitroglycerin 0.4 mg Q5MINP PRN SL 05/22/24 09:00 Propofol 100 ml @ 3.06 mls/hr Q24H IV 05/22/24 13:45 05/29/24 08:22 12.24 MLS/HR Fentanyl Citrate 250 ml @ 2.5 mls/hr Q24H IV 05/22/24 14:45 05/28/24 02:39 7.5 MLS/HR Aspirin 81 mg DAILY PO 05/23/24 10:00 05/29/24 08:23 81 MG Atorvastatin Calcium 40 mg HS PO 05/22/24 22:00 05/28/24 21:07 40 MG Azithromycin 250 ml @ 125 mls/hr DAILY IV 05/23/24 10:00 05/29/24 08:24 125 MLS/HR Ipratropium [place] 0.5 mg Q4HR NEB 05/23/24 14:00 05/29/24 18:20 0.5 MG Midazolam HCl 50 ml @ 1 mls/hr Q24H IV 05/23/24 12:15 05/25/24 02:40 4 MLS/HR Methylprednisolone Sodium Succinate 40 mg BID IV 05/24/24 22:00 05/29/24 08:23 40 MG Phenylephrine HCl 250 ml @ 30 mls/hr Q8H20M IV 05/24/24 21:00 Hydralazine HCl 10 mg Q6H PRN IV 05/26/24 03:15 05/29/24 15:24 10 MG Dexmedetomidine HCl 400 mcg/ Dextrose 100 ml @ 5.11 mls/hr [id number] IV 05/26/24 15:45 05/29/24 12:13 10.22 MLS/HR Budesonide 0.5 mg BID NEB 05/26/24 22:00 05/29/24 06:13 0.5 MG Labetalol HCl 20 mg Q4HPRN PRN IV 05/26/24 18:00 05/29/24 01:57 20 MG Amino Acids 0 ml @ 0 mls/hr PER PHARMACY IV 05/27/24 06:00 Sodium Chloride 1,000 ml @ 75 mls/hr [id number] IV 05/27/24 07:20 05/29/24 14:33 75 MLS/HR Diagnostic Test (Pha) 1 strip Q6HR 05/27/24 12:00 05/29/24 16:53 1 STRIP Insulin Human Regular FOLLOW SLIDING SCALE Q6HR SC 05/27/24 12:00 05/29/24 11:08 4 UNITS Dextrose 50 ml UD IV 05/27/24 11:00 Amino Acids/ Electrolytes/ Dextrose 1,000 ml @ 41 mls/hr DAILY@2200 IV 05/27/24 22:00 05/28/24 21:07 41 MLS/HR Vancomycin HCl 0 ml @ 0 mls/hr UD IV 05/28/24 09:45 Vancomycin HCl 250 ml @ 200 mls/hr Q24H IV 05/29/24 10:00 05/29/24 10:34 200 MLS/HR Carvedilol 6.25 mg Q12HR PO 05/29/24 10:30 05/29/24 11:07 6.25 MG Levalbuterol HCl 0.625 mg Q4HR NEB 05/29/24 18:00 05/29/24 18:20 0.625 MG Haloperidol Lactate 5 mg Q8HP PRN IM 05/29/24 19:00 objective Gen.: Patient lying in bed in medical ICU. Intubated on mechanical ventilator. Head: Normocephalic, atraumatic. Eyes: PERRLA. Ears: Normal external anatomy. Throat: Endotracheal tube and orogastric tube in place. Neck: Supple, trachea midline. Chest: Transmitted breath sounds bilaterally. Decreased air entry bilaterally. No wheezing. Bibasilar crackles. Cardiovascular: Positive S1, positive S2. Regular rate and rhythm. Abdomen: Positive bowel sounds in all 4 quadrants. Soft, nontender, nondistended. : Garcia in place. Normal external genitalia. Rectal: Deferred. Skin: Warm, dry. Intact. Extremities: 2+ radial pulses bilaterally. No lower extremity edema. Neuro: Off sedation laboratory and microbiology Laboratory Tests 05/29/24 04:35 Test 05/29/24 04:35 Range/Units Serum Glucose 157 H 74-106 mg/dL Assessment/Plan Impression: Acute hypoxic respiratory failure Acute hypercarbic respiratory failure On mechanical ventilator COPD exacerbation Hx of nicotine dependence Morbid obesity, BMI 40 Atelectasis Events: Remains on vent support Vent settings: AC mode; RR 18, VT 500, PEEP 5, FiO2 35 -->45% Off Fentanyl/Propofol On Precedex drip Off pressors, hemodynamically stable ABG done at 11:30 - compensated CXR reviewed, demonstrates pulmonary congestion. No effusion or pneumothorax. Devices in place. Continue bronchodilators. Continue antibiotics. Continue IV steroids IV fluids at 75 ml/hr Clinimix for nutritional support CPAP with PS 8, PEEP of 5 Patient following commands. S/p therapeutic bronchoscopy with LLL BAL on 05/26/24 - cleared mucous plugging from L6-L10 and R6-R10 Labs and imaging reviewed. Rest of plan as noted below. Plan: s/p intubation on mechanical ventilator. Vent settings: AC mode; RR 18, VT 500, PEEP 5, FiO2 45% Continuous med neb ordered. Titrate FIO2 to keep O2 saturation above 90%. VAP bundle. Daily ABG and CXR while intubated Off sedation Continue bronchodilators. Continue antibiotics. F/u cultures. Pressors if necessary for hemodynamic support Titrate to keep mean arterial pressure greater than 65 mmHg. Monitor renal function Monitor electrolytes. Supplement as necessary. Monitor ins and outs. Maintain euvolemia. Morbid Obesity - complicates all care GI prophylaxis. DVT prophylaxis. Prognosis: Poor given patient's multiple co-morbidities. Condition: Critical Rest of plan per hospitalist and other consultants. A total of 35 minutes of critical care time was spent reviewing the patient record, examining the patient, making a diagnostic and therapeutic plan, discussing this plan with the medical personnel, following up on diagnostic studies and following the patient for clinical stability excluding any and all procedures. At least 50% of this time was spent in direct, [id number] contact. Thank you, RAFA Thurman, for allowing me to participate in this patient's care. Further recommendations will depend on the patient's clinical course. Please do not hesitate to contact me if you have any questions or concerns. This medical document was created using an electronic medical record system with [employer] dictation system. Although these documentations are being carefully reviewed, there may still be some phonetic and typographical changes. The errors are purely typographical, due to imperfection on the software program, and do not reflect any compromise in the patient's medical care. Dietary Evaluation Review Comments: 1. Recommend 2 g Na CCHO-60 diet as tolearated if Pt is awake, of vent and passes speech eval. 2. Consider TF Glucerna @ 40ml/hr (58g pro 1152 kcal in 24 hrs in FS), if GI accessible, EN is the choice for nutrition support. Add Clinimix 41ml/hr x 24 hrs for the addiitonal protein needs, 3. Consider TPN per pharmacy if NPO > 7 days and EN not the option of nutrition support. Expected Outcomes/Goals: Improved breathing, gradual wt loss. on PO 2 g Na CCHo-60 diet texture as tolerated. Plan discussed with: Other (MALICK Guevara) Critical Care Time(min): 35 RYAN ROMERO MD May 29, 2024 20:59
[2024-05-30] VITALS (62 sets, daily range): BP systolic 104–172; BP diastolic 68–118; PULSE 80–131; RESP 14–34; TEMP 98–99.9; O2SAT 86–97
[2024-05-30 04:37] LABS: Base Excess 1.6 mmol/L (-2.0-3.0)
--- NOTE | 2024-05-30 05:14 | DVH ---
CHEST RADIOGRAPH Indication: RESPIRATORY DISTRESS Technique: Single frontal view of the chest was obtained Comparison: XY CHEST PORTABLE on DOS: 05/29/24, XY CHEST PORTABLE on DOS: 05/28/24, XY CHEST PORTABLE o n DOS: 05/27/24 FINDINGS: Lines and Tubes: There is a right central venous catheter with its tip terminating in the superior ve na cava. Lungs: No focal consolidation. Pleura: No effusion. No pneumothorax. Cardiomediastinal contours: Unremarkable Bones: No acute osseous abnormality. IMPRESSION: 1. No acute cardiopulmonary disease.
[2024-05-30 05:35] LABS: Alanine Aminotransferase 35 U/L (7-40); Albumin 3.4 g/dL (3.2-4.8); Alkaline Phosphatase 51 U/L (46-116); Anion Gap 7 (5-15); BUN/Creatinine Ratio 38.3 (10.0-20.0); Calcium 9.1 mg/dL (8.7-10.4); Carbon Dioxide 29 mmol/L (20-31); Chloride 104 mmol/L (98-107); Magnesium 2.2 mg/dL (1.6-2.6); Phosphorus 2.5 mg/dL (2.4-5.1); Potassium 4.1 mmol/L (3.5-5.1); Sodium 140 mmol/L (136-145)
[2024-05-30 05:48] LABS: Aspartate Aminotransferase 50 U/L (13-40); Bilirubin, Total 1.4 mg/dL (0.2-1.0); Blood Urea Nitrogen 31 mg/dL (9-23); Glucose 158 mg/dL (74-106); Total Protein 5.6 g/dL (5.7-8.2)
--- NOTE | 2024-05-30 09:11 | DVHPN2 ---
Subjective Patient intubated and sedated. Reviewed: Care Plan, H&P, Labs, Medications Changes from previous H/P or p: No Changes General: Per HPI Eyes: No Pain, No Vision change, No Conjunctivae inflammation, No Eyelid inflammation, No Other, No Redness ENT: No Ear pain, No Ear discharge, No Nose pain, No Nose discharge, No Nose congestion, No Mouth pain, No Mouth swelling, No Throat pain, No Throat swelling, No Other Cardiovascular: No Chest Pain, No Palpitations, No Orthopnea, No Paroxysmal Noc. Dyspnea, No Edema, No Lt Headedness; Other (Chest tightness) Respiratory: No Cough, No Dry; Shortness of breath; No SOB with excertion, No Wheezing, No Hemoptysis, No Pleuritic Pain, No Sputum, No Other Gastrointestinal: No Nausea, No Vomiting, No Abdominal Pain, No Diarrhea, No Constipation, No Melena, No Hematochezia, No Other Genitourinary: No Dysuria, No Frequency, No Incontinence, No Hematuria, No Retention, No Other Musculoskeletal: No other, No neck pain, No shoulder pain, No arm pain, No back pain, No hand pain, No leg pain, No foot pain Skin: No Rash, No Lesions, No Jaundice, No Bruising, No Other Objective Vitals Vital Signs Date Time Temp Pulse Resp B/P (MAP) Pulse Ox O2 Delivery O2 Flow Rate FiO2 05/30/24 09:00 126/70 05/30/24 08:36 85 95 Facial BiPAP Mask 40 05/30/24 07:00 99.0 25 210.2 05/30/24 06:00 12 Intake/Output Intake and Output 05/30/24 07:00 Intake Total 3310.915 ml Output Total 3300 ml Balance 10.915 ml Intake Oral 60 ml IV Total 3250.915 ml Output Urine Total 3300 ml # Bowel Movements 2 General Appearance: Alert, mild distress, Other (Encephalopathic) HEENT: Atraumatic, PERRLA Lungs: Clear to auscultation, Normal air movement, Other (Mechanical ventilation) Cardiovascular: Normal S1, Normal S2 Abdomen: Normal bowel sounds, Soft, No tenderness, No hepatospenomegaly Genitourinary: No Apparent Abnormalities (Aguero catheter) Musculoskeletal: Other (Unable to assess) Skin: Dry, Intact Psych/Mental Status: Other (Unable to assess) Medications Current Medications Medications Dose Ordered Sig/Mindy Route Start Time Stop Time Status Last Admin Dose Admin Norepinephrine Bitartrate 250 ml @ 3.75 mls/hr Q24H IV 05/22/24 09:00 05/23/24 23:15 3.75 MLS/HR Morphine Sulfate 2 mg Q30MP PRN IV 05/22/24 09:00 UNV Morphine Sulfate 2 mg Q30M PRN IV 05/22/24 09:30 Enoxaparin Sodium 30 mg DAILY SC 05/22/24 10:00 05/29/24 08:23 30 MG Acetaminophen 650 mg Q6HP PRN PO 05/22/24 09:00 05/26/24 13:00 650 MG Nitroglycerin 0.4 mg Q5MINP PRN SL 05/22/24 09:00 UNV Nitroglycerin 0.4 mg Q5MINP PRN SL 05/22/24 09:00 Propofol 100 ml @ 3.06 mls/hr Q24H IV 05/22/24 13:45 05/29/24 08:22 12.24 MLS/HR Fentanyl Citrate 250 ml @ 2.5 mls/hr Q24H IV 05/22/24 14:45 05/28/24 02:39 7.5 MLS/HR Aspirin 81 mg DAILY PO 05/23/24 10:00 05/29/24 08:23 81 MG Atorvastatin Calcium 40 mg HS PO 05/22/24 22:00 05/28/24 21:07 40 MG Ipratropium [place] 0.5 mg Q4HR NEB 05/23/24 14:00 05/30/24 07:00 0.5 MG Midazolam HCl 50 ml @ 1 mls/hr Q24H IV 05/23/24 12:15 05/25/24 02:40 4 MLS/HR Methylprednisolone Sodium Succinate 40 mg BID IV 05/24/24 22:00 05/29/24 21:48 40 MG Phenylephrine HCl 250 ml @ 30 mls/hr Q8H20M IV 05/24/24 21:00 Hydralazine HCl 10 mg Q6H PRN IV 05/26/24 03:15 05/29/24 23:53 10 MG Budesonide 0.5 mg BID NEB 05/26/24 22:00 05/30/24 07:00 0.5 MG Labetalol HCl 20 mg Q4HPRN PRN IV 05/26/24 18:00 05/30/24 04:32 20 MG Amino Acids 0 ml @ 0 mls/hr PER PHARMACY IV 05/27/24 06:00 Sodium Chloride 1,000 ml @ 75 mls/hr [id number] IV 05/27/24 07:20 05/30/24 02:29 75 MLS/HR Diagnostic Test (Pha) 1 strip Q6HR 05/27/24 12:00 05/29/24 23:53 1 STRIP Insulin Human Regular FOLLOW SLIDING SCALE Q6HR SC 05/27/24 12:00 05/30/24 05:56 4 UNITS Dextrose 50 ml UD IV 05/27/24 11:00 Amino Acids/ Electrolytes/ Dextrose 1,000 ml @ 41 mls/hr DAILY@2200 IV 05/27/24 22:00 05/29/24 21:48 41 MLS/HR Vancomycin HCl 0 ml @ 0 mls/hr UD IV 05/28/24 09:45 Vancomycin HCl 250 ml @ 200 mls/hr Q24H IV 05/29/24 10:00 05/29/24 10:34 200 MLS/HR Carvedilol 6.25 mg Q12HR PO 05/29/24 10:30 05/29/24 11:07 6.25 MG Levalbuterol HCl 0.625 mg Q4HR NEB 05/29/24 18:00 05/30/24 07:00 0.625 MG Haloperidol Lactate 5 mg Q8HP PRN IM 05/29/24 19:00 Dexmedetomidine HCl 400 mcg/ Dextrose 100 ml @ 5.095 mls/ hr [id number] IV 05/29/24 21:15 05/30/24 07:50 10.19 MLS/HR Laboratory Results Laboratory Tests 05/29/24 04:35 05/30/24 04:55 Chemistry Test 05/30/24 04:55 Albumin 3.4 g/dL (3.2-4.8) Calcium Level 9.1 mg/dL (8.7-10.4) Magnesium Level 2.2 mg/dL (1.6-2.6) Phosphorus Level 2.5 mg/dL (2.4-5.1) Total Protein 5.6 g/dL (5.7-8.2) L LFT Test 05/30/24 04:55 Alanine Aminotransferase (ALT) 35 U/L (7-40) Alkaline Phosphatase 51 U/L (46-116) Aspartate Amino Transferase (AST) 50 U/L (13-40) H Total Bilirubin 1.4 mg/dL (0.2-1.0) H Urinalysis Test 05/22/24 05:01 Urine Color Light-yellow (Yellow) Urine Clarity Clear (Clear) Urine pH 5.5 (5.0-9.0) Urine Specific [place] 1.011 (1.001-1.035) Urine Protein Trace (Negative) H Urine Ketones Negative (Negative) Urine Blood 1+ /uL (Negative) H Urine Nitrite Negative (Negative) Urine Bilirubin Negative (Negative) Urine Urobilinogen Normal mg/dL (Negative) Urine Leukocyte Esterase Negative /uL (Negative) Urine RBC 2 /hpf (0 - 3) Urine WBC 1 /hpf (0 - 3) Urine Squamous Epithelial Cells None seen /hpf (<5) Urine Bacteria None seen /hpf (None Seen) Urine Glucose Normal mg/dL (Normal) Blood Gas Results Test 05/29/24 11:30 05/30/24 04:30 Arterial Blood pH 7.367 (7.350-7.450) 7.423 (7.350-7.450) FiO2 % 50.0 36.0 Microbiology Microbiology Date/Time Source Procedure Growth Status 05/26/24 15:50 Bronchial Washings Gram Stain - Final Complete 05/26/24 15:50 Respiratory Culture - Final Staphylococcus aureus Complete 05/24/24 14:28 Nose MRSA Screen - Final Complete 05/22/24 14:50 Blood Blood Culture - Final NO GROWTH AFTER 5 DAYS OF INCUBATION. Complete Labs and/or images reviewed: Labs reviewed by me, Image(s) reviewed by me Assessment/Plan Assessment/Plan Impression: -acute hypoxic respiratory failure mechanical ventilation -COPD with exacerbation -leukocytosis, rule out sepsis -obesity -history of CAD -history of nicotine dependence -NSTEMI type 2 secondary to respiratory failure -acute kidney injury, rule out vasomotor nephropathy -right middle and lower lobe atelectasis -rule out beta-ramon withdrawal Plan: -patient extubated yesterday. Now on BiPAP with FiO2 45%. No respiratory distress noted. Patient was presenting with acute delirium. Patient was able to follow commands. -transitioned from BiPAP to high-flow nasal cannula -start p.o. intake -continue bronchodilators, Pulmicort -continue IV hydration -BAL results with Staphylococcus aureus. Continue vancomycin, stop Rocephin and azithromycin -PUD, DVT prophylaxis -repeat labs, chest x-ray in a.m. Critical care time spent with patient discussing and formulating plan of care: 40 minutes. This does not include time spent performing procedures. This medical document was created using an electronic medical record system with [employer] dictation system. Although this document has been carefully reviewed, there may still be some phonetic and typographical errors. These areas are purely typographical due to imperfections of the software programs, and do not reflect any compromise in the patient's medical care. Plan discussed with: Patient, Other (RN) My Orders Orders - YOLI KAY NP Procedure Category Date Status Time Cpap/Sed Vacation Med ORDERS 05/30/24 Transmitted Weaning 05:00 Cpap/Sed Vacation Med ORDERS 05/31/24 Transmitted Weaning 05:00 Cpap/Sed Vacation Med ORDERS 06/01/24 Transmitted Weaning 05:00 Cpap/Sed Vacation Med ORDERS 06/02/24 Transmitted Weaning 05:00 Cpap/Sed Vacation Med ORDERS 06/03/24 Transmitted Weaning 05:00 Carvedilol Tablet PHA 05/29/24 In Process (Coreg Tablet) 10:30 * Swallow Request ST 05/29/24 Transmitted 15:45 Levalbuterol Hcl PHA 05/29/24 In Process (Xopenex Medneb) 18:00 Basic Metabolic Panel LAB 05/31/24 Verified 04:00 Complete Blood Count LAB 05/31/24 Verified 04:00 Oxygen By High-Flow RT 05/30/24 Transmitted 08:59 Date of Service: May 30, 2024 Billing Provider: YOLI KAY NP Common Visit Codes: [id number] CARE 30-74 MIN YOLI KAY NP May 30, 2024 09:11
[2024-05-30] MEDS: FUROSEMIDE 40 MG/4 ML VIAL IV SCH (11:33)
[2024-05-30] MEDS: METOPROLOL TARTRATE 1MG/1ML-5ML VIAL IV ONE (16:15)
[2024-05-30] MEDS ORDERED: CLINIMIX PER PHARMACY 0 ML IV SCH (20:00)
--- NOTE | 2024-05-30 20:21 | DVHPN2 ---
Progress Note - Dictate Date Seen: May 30, 2024 Medical Necessity Reason Pt with a Central, PICC or Fol: Yes The following are medically ne: Garcia Catheter Reason for garcia catheter: Strict I&O Subjective Mr. Jeffry Cummins is a 79 years old right-handed gentleman with a history of hypertension, coronary artery disease, heart attack, COPD, he was admitted on 05/22/2024 with a chief complaint of altered mental status, the patient was extubated on 05/29/2024 I have seen and examined the patient, discussed with his nurse and other medical staff, he is physically stronger today, he enjoys talking though his voice is not very clear, he is oriented to person, place, he follows verbal commands He tried to come out of bed Urinalysis, 05/22/2024: WBC: 1, urine leukocyte esterase: Negative ABG, 05/1924: Hypoxia, compensated respiratory acidosis, 05/29/2024: Respiratory acidosis WBC/HB/PLT/MCV, 05/25/2024: 17.9/14.4/211/93.1, 05/29/2024: 10.8/13.9/190/91.6 BUN/CR, 05/29/2024: 28/0.78 HGB A1c, 05/23/24: 6.5 Liver function tests, 05/29/2024: Unremarkable TG/HDL/LDL/HDL, 05/23/2024: 118/112/48/49 TSH, 05/23/2024: 0.71 Chest x-ray, 05/24/2024: Bilateral opacities which may reflect atelectasis.(The endotracheal tube terminates 3.3 cm above the karoline) CT head, 05/20/2024: 1. Global brain atrophy and chronic schema changes without evidence of acute intracranial process. 2. Punctate intra-axial and extra-axial calcifications may be due to remote history of TORCH infection. 3. Mild bilateral maxillary and ethmoid sinus disease. vital signs Vital Sign Date Time Temp Pulse Resp B/P (MAP) Pulse Ox O2 Delivery O2 Flow Rate FiO2 05/30/24 19:57 93 187/103 05/30/24 19:01 21 91 05/30/24 18:30 30.0 40 05/30/24 17:38 Hi-Flow Heated NC+ Hi-Flow NC 05/30/24 16:00 98.0 98.0 Total Intake and Output 05/29/24 05/29/24 05/30/24 15:00 23:00 07:00 Intake Total 1548.415 ml 988 ml 890.5 ml Output Total 1150 ml 2150 ml Balance 1548.415 ml -162 ml -1259.5 ml medications Current Medications Medications Dose Ordered Sig/Mindy Route Start Time Stop Time Status Last Admin Dose Admin Norepinephrine Bitartrate 250 ml @ 3.75 mls/hr Q24H IV 05/22/24 09:00 05/23/24 23:15 3.75 MLS/HR Morphine Sulfate 2 mg Q30MP PRN IV 05/22/24 09:00 UNV Morphine Sulfate 2 mg Q30M PRN IV 05/22/24 09:30 Enoxaparin Sodium 30 mg DAILY SC 05/22/24 10:00 05/30/24 10:16 30 MG Acetaminophen 650 mg Q6HP PRN PO 05/22/24 09:00 05/26/24 13:00 650 MG Nitroglycerin 0.4 mg Q5MINP PRN SL 05/22/24 09:00 UNV Nitroglycerin 0.4 mg Q5MINP PRN SL 05/22/24 09:00 Fentanyl Citrate 250 ml @ 2.5 mls/hr Q24H IV 05/22/24 14:45 05/28/24 02:39 7.5 MLS/HR Aspirin 81 mg DAILY PO 05/23/24 10:00 05/30/24 10:28 81 MG Atorvastatin Calcium 40 mg HS PO 05/22/24 22:00 05/28/24 21:07 40 MG Ipratropium [place] 0.5 mg Q4HR NEB 05/23/24 14:00 05/30/24 18:30 0.5 MG Midazolam HCl 50 ml @ 1 mls/hr Q24H IV 05/23/24 12:15 05/25/24 02:40 4 MLS/HR Methylprednisolone Sodium Succinate 40 mg BID IV 05/24/24 22:00 05/30/24 10:12 40 MG Hydralazine HCl 10 mg Q6H PRN IV 05/26/24 03:15 05/29/24 23:53 10 MG Budesonide 0.5 mg BID NEB 05/26/24 22:00 05/30/24 07:00 0.5 MG Labetalol HCl 20 mg Q4HPRN PRN IV 05/26/24 18:00 05/30/24 19:57 20 MG Diagnostic Test (Pha) 1 strip Q6HR 05/27/24 12:00 05/30/24 18:15 1 STRIP Insulin Human Regular FOLLOW SLIDING SCALE Q6HR SC 05/27/24 12:00 05/30/24 18:16 4 UNITS Dextrose 50 ml UD IV 05/27/24 11:00 Vancomycin HCl 0 ml @ 0 mls/hr UD IV 05/28/24 09:45 Vancomycin HCl 250 ml @ 200 mls/hr Q24H IV 05/29/24 10:00 05/30/24 10:13 200 MLS/HR Carvedilol 6.25 mg Q12HR PO 05/29/24 10:30 05/30/24 10:28 6.25 MG Levalbuterol HCl 0.625 mg Q4HR NEB 05/29/24 18:00 05/30/24 18:30 0.625 MG Haloperidol Lactate 5 mg Q8HP PRN IM 05/29/24 19:00 Furosemide 40 mg DAILY IV 05/30/24 10:45 05/30/24 11:33 40 MG Amino Acids 0 ml @ 0 mls/hr PER PHARMACY IV 05/30/24 20:00 Amino Acids/ Electrolytes/ Dextrose 1,000 ml @ 41 mls/hr DAILY@2200 IV 05/30/24 22:00 objective General: the patient is well developed and nourished. No acute distress. MENTAL STATUS: Subjective SPEECH, LANGUAGE, HIGHER CORTICAL FUNCTION: No aphasia CRANIAL NERVES: Pupils are equal, round and reactive. EOMs full and conjugate. Facial sensation intact in all three divisions bilaterally. Mandibular strength intact. Facial muscles symmetrical and strength intact. SENSATION: Sensation to touch and pinprick is normal. MOTOR: Normal tone in the upper and lower extremity. Normal muscle bulk. No fasciculations. No abnormal movements or posturing, muscle power in the arms 5/5, in the leg is 4/5 REFLEXES: Deep tendon reflexes normal and symmetrical. No pathological reflexes. CEREBELLAR/COORDINATION: Deferred GAIT/STATION: deferred laboratory and microbiology Laboratory Tests 05/30/24 04:55 05/29/24 04:35 Test 05/30/24 04:55 Range/Units Serum Glucose 158 H 74-106 mg/dL Problem List Altered mental status Hypoxic encephalopathy Metabolic encephalopathy Toxic encephalopathy Acute on chronic respiratory failure Respiratory acidosis Pneumonia Assessment/Plan Monitoring Supportive treatment DCU care Oxygen Stabilize vitals Respiratory support/BiPAP Respiratory treatment IV antibiotics Haldol 5 mg intramuscular Q 8 hours p.r.n. for agitation DVT prophylax/Lovenox GI prophylax More recommendation per clinical course This medical document was created using an electronic medical record system with [employer] dictation system. Although this document has been carefully reviewed, there may still be some phonetic and typographical errors. These areas are purely typographical due to imperfections of the software programs, and do not reflect any compromise in the patient's medical care. Prognosis poor Dietary Evaluation Review Comments: 1. Recommend 2 g Na CCHO-60 diet as tolearated if Pt is awake, of vent and passes speech eval. 2. Consider TF Glucerna @ 40ml/hr (58g pro 1152 kcal in 24 hrs in FS), if GI accessible, EN is the choice for nutrition support. Add Clinimix 41ml/hr x 24 hrs for the addiitonal protein needs, 3. Consider TPN per pharmacy if NPO > 7 days and EN not the option of nutrition support. Expected Outcomes/Goals: Improved breathing, gradual wt loss. on PO 2 g Na CCHo-60 diet texture as tolerated. Plan discussed with: Other CALEB NORMAN MD May 30, 2024 20:21
[2024-05-30] MEDS: AMINO ACID INFUSION IN D10W 1,000 ML IV SCH (22:08)
--- NOTE | 2024-05-30 22:56 | DVHPN2 ---
Progress Note - Dictate Date Seen: May 30, 2024 Medical Necessity Reason Pt with a Central, PICC or Fol: Yes The following are medically ne: Garcia Catheter Reason for garcia catheter: Strict I&O Subjective Patient seen and examined at bedside. s/p extubation, on supplemental oxygen Overnight events reviewed. vital signs Vital Sign Date Time Temp Pulse Resp B/P (MAP) Pulse Ox O2 Delivery O2 Flow Rate FiO2 05/30/24 22:07 109 177/99 05/30/24 20:30 16 89 05/30/24 20:00 Bi-Pap+ 40 40 05/30/24 18:30 30.0 05/30/24 16:00 98.0 98.0 Total Intake and Output 05/29/24 05/29/24 05/30/24 15:00 23:00 07:00 Intake Total 1548.415 ml 988 ml 890.5 ml Output Total 1150 ml 2150 ml Balance 1548.415 ml -162 ml -1259.5 ml medications Current Medications Medications Dose Ordered Sig/Minyd Route Start Time Stop Time Status Last Admin Dose Admin Norepinephrine Bitartrate 250 ml @ 3.75 mls/hr Q24H IV 05/22/24 09:00 05/23/24 23:15 3.75 MLS/HR Morphine Sulfate 2 mg Q30MP PRN IV 05/22/24 09:00 UNV Morphine Sulfate 2 mg Q30M PRN IV 05/22/24 09:30 Enoxaparin Sodium 30 mg DAILY SC 05/22/24 10:00 05/30/24 10:16 30 MG Acetaminophen 650 mg Q6HP PRN PO 05/22/24 09:00 05/26/24 13:00 650 MG Nitroglycerin 0.4 mg Q5MINP PRN SL 05/22/24 09:00 UNV Nitroglycerin 0.4 mg Q5MINP PRN SL 05/22/24 09:00 Fentanyl Citrate 250 ml @ 2.5 mls/hr Q24H IV 05/22/24 14:45 05/28/24 02:39 7.5 MLS/HR Aspirin 81 mg DAILY PO 05/23/24 10:00 05/30/24 10:28 81 MG Atorvastatin Calcium 40 mg HS PO 05/22/24 22:00 05/28/24 21:07 40 MG Ipratropium [place] 0.5 mg Q4HR NEB 05/23/24 14:00 05/30/24 18:30 0.5 MG Midazolam HCl 50 ml @ 1 mls/hr Q24H IV 05/23/24 12:15 05/25/24 02:40 4 MLS/HR Methylprednisolone Sodium Succinate 40 mg BID IV 05/24/24 22:00 05/30/24 22:07 40 MG Hydralazine HCl 10 mg Q6H PRN IV 05/26/24 03:15 05/29/24 23:53 10 MG Budesonide 0.5 mg BID NEB 05/26/24 22:00 05/30/24 07:00 0.5 MG Labetalol HCl 20 mg Q4HPRN PRN IV 05/26/24 18:00 05/30/24 19:57 20 MG Diagnostic Test (Pha) 1 strip Q6HR 05/27/24 12:00 05/30/24 18:15 1 STRIP Insulin Human Regular FOLLOW SLIDING SCALE Q6HR SC 05/27/24 12:00 05/30/24 18:16 4 UNITS Dextrose 50 ml UD IV 05/27/24 11:00 Vancomycin HCl 0 ml @ 0 mls/hr UD IV 05/28/24 09:45 Vancomycin HCl 250 ml @ 200 mls/hr Q24H IV 05/29/24 10:00 05/30/24 10:13 200 MLS/HR Carvedilol 6.25 mg Q12HR PO 05/29/24 10:30 05/30/24 22:07 6.25 MG Levalbuterol HCl 0.625 mg Q4HR NEB 05/29/24 18:00 05/30/24 18:30 0.625 MG Haloperidol Lactate 5 mg Q8HP PRN IM 05/29/24 19:00 Furosemide 40 mg DAILY IV 05/30/24 10:45 05/30/24 11:33 40 MG Amino Acids 0 ml @ 0 mls/hr PER PHARMACY IV 05/30/24 20:00 Amino Acids/ Electrolytes/ Dextrose 1,000 ml @ 41 mls/hr DAILY@2200 IV 05/30/24 22:00 05/30/24 22:08 41 MLS/HR Lorazepam 1 mg Q8HP PRN IV 05/30/24 21:30 objective Gen.: Patient lying in bed in no apparent distress. On supplemental oxygen. Head: Normocephalic, atraumatic. Eyes: EOMI/PERRLA. Ears: Normal hearing. Normal anatomy. Neck/trachea: Trachea midline, supple. Nose: Normal external anatomy. Mouth: Moist mucous membranes. Chest: Decreased air entry bilaterally. No wheezing or rhonchi. Cardiovascular: Positive S1, positive S2. Regular rate and rhythm. Abdomen: Positive bowel sounds in all 4 quadrants. Soft, non-tender, non- distended. : Deferred. Rectal: Deferred. Skin: Warm, dry. Intact. Extremities: 2+ radial pulses bilaterally. No lower extremity edema. Neuro: Awake, alert, oriented x3. No gross motor or sensory deficits. Cranial nerves II through XII intact. Gait not assessed. laboratory and microbiology Laboratory Tests 05/30/24 04:55 05/29/24 04:35 Test 05/30/24 04:55 Range/Units Serum Glucose 158 H 74-106 mg/dL Assessment/Plan Impression: Acute hypoxic respiratory failure Acute hypercarbic respiratory failure COPD exacerbation Hx of nicotine dependence Morbid obesity, BMI 40 Atelectasis Events: Patient tolerated CPAP, underwent uneventful extubation yesterday. Currently on high flow O2 at 40 LPM, FiO2 50% Taper flow rate and FiO2 as tolerated. Off sedation On Precedex drip Off pressors, hemodynamically stable Continue bronchodilators. Continue antibiotics. Continue IV steroids IV fluids at 75 ml/hr Clinimix for nutritional support S/p therapeutic bronchoscopy with LLL BAL on 05/26/24 - cleared mucous plugging from L6-L10 and R6-R10 Labs and imaging reviewed. Rest of plan as noted below. Plan: s/p extubation on 05/29/24 On high flow O2 at 40 LPM, FiO2 50% Taper flow rate and FiO2 as tolerated. Off sedation Continue bronchodilators. Continue antibiotics. Continue steroids F/u cultures. Pressors if necessary for hemodynamic support Titrate to keep mean arterial pressure greater than 65 mmHg. Monitor renal function Monitor electrolytes. Supplement as necessary. Monitor ins and outs. Maintain euvolemia. Morbid Obesity - complicates all care GI prophylaxis. DVT prophylaxis. Prognosis: Poor given patient's multiple co-morbidities. Condition: Critical Rest of plan per hospitalist and other consultants. A total of 35 minutes of critical care time was spent reviewing the patient record, examining the patient, making a diagnostic and therapeutic plan, discussing this plan with the medical personnel, following up on diagnostic studies and following the patient for clinical stability excluding any and all procedures. At least 50% of this time was spent in direct, huhx-de-eypo contact. Thank you, CAGE/[employer] SUPERVISOR Cuca, for allowing me to participate in this patient's care. Further recommendations will depend on the patient's clinical course. Please do not hesitate to contact me if you have any questions or concerns. This medical document was created using an electronic medical record system with [employer] dictation system. Although these documentations are being carefully reviewed, there may still be some phonetic and typographical changes. The errors are purely typographical, due to imperfection on the software program, and do not reflect any compromise in the patient's medical care. Dietary Evaluation Review Comments: 1. Recommend 2 g Na CCHO-60 diet as tolearated if Pt is awake, of vent and passes speech eval. 2. Consider TF Glucerna @ 40ml/hr (58g pro 1152 kcal in 24 hrs in FS), if GI accessible, EN is the choice for nutrition support. Add Clinimix 41ml/hr x 24 hrs for the addiitonal protein needs, 3. Consider TPN per pharmacy if NPO > 7 days and EN not the option of nutrition support. Expected Outcomes/Goals: Improved breathing, gradual wt loss. on PO 2 g Na CCHo-60 diet texture as tolerated. Plan discussed with: Other (MALICK Chavez) Critical Care Time(min): 35 RYAN ROMERO MD May 30, 2024 22:56
[2024-05-31] VITALS (78 sets, daily range): BP systolic 99–184; BP diastolic 39–119; PULSE 81–122; RESP 13–32; TEMP 97.8–100; O2SAT 89–100
[2024-05-31] MEDS: LORazepam 2MG/ML-1ML VIAL IV PRN (04:19)
[2024-05-31 05:21] LABS: Basophils # (auto) 0 10 ^3/uL (0-0.2); Basophils % (auto) 0.3 % (0.0-2.0); Eosinophils # (auto) 0 10 ^3/uL (0-0.8); Hematocrit 45.4 % (41.0-53.0); Hemoglobin 15.1 g/dL (13.5-17.5); Lymphocytes # (auto) 0.4 10 ^3/uL (0.4-5.4); Lymphocytes % (auto) 2.7 % (10.0-50.0); Mean Corpuscular Hemoglobin 30.2 pg (28.0-32.0); Mean Corpuscular Hgb Conc. 33.2 g/dL (32.0-36.0); Mean Corpuscular Volume 90.8 fL (80.0-100.0); Monocytes # (auto) 0.7 10 ^3/uL (0-1.3); Monocytes % (auto) 4.7 % (0.0-12.0); Neutrophils # (auto) 12.9 10 ^3/uL (1.6-8.6); Neutrophils % (auto) 92.3 % (37.0-80.0); Nucleated Red Blood Cells % 0.1 %; Platelet Count (auto) 198 10^3/uL (140-450); Red Cell Distribution Width 13.3 % (11.8-14.3); White Blood Cell 13.9 10^3/uL (4.4-10.8)
[2024-05-31 05:40] LABS: Chloride 105 mmol/L (98-107); Sodium 143 mmol/L (136-145)
[2024-05-31 05:41] LABS: Anion Gap 5 (5-15); Calcium 9.3 mg/dL (8.7-10.4)
[2024-05-31 05:46] LABS: BUN/Creatinine Ratio 41.5 (10.0-20.0)
[2024-05-31 05:47] LABS: Magnesium 2.1 mg/dL (1.6-2.6)
[2024-05-31 05:48] LABS: Phosphorus 2.7 mg/dL (2.4-5.1)
[2024-05-31 05:49] LABS: Blood Urea Nitrogen 39 mg/dL (9-23); Carbon Dioxide 33 mmol/L (20-31); Glucose 186 mg/dL (74-106)
--- NOTE | 2024-05-31 09:20 | DVH ---
EXAM: XY CHEST XRAY 1 VIEW Indication: PNA, respiratory distress Technique: Single frontal view of the chest was obtained Comparison: XY CHEST PORTABLE on DOS: 05/30/24, XY CHEST PORTABLE on DOS: 05/29/24, XY CHEST PORTABLE o n DOS: 05/28/24, XY CHEST PORTABLE on DOS: 05/27/24, XY CHEST PORTABLE on DOS: 05/26/24 FINDINGS: Lines and Tubes: Right central venous catheter tip projects over the superior vena cava. Lungs: Left retrocardiac opacity. Pleura: No effusion. No pneumothorax. Cardiomediastinal contours: Unremarkable Bones: No acute osseous abnormality. IMPRESSION: Left retrocardiac opacity.
--- NOTE | 2024-05-31 10:03 | DVHPN2 ---
Subjective Patient intubated and sedated. Reviewed: Care Plan, H&P, Labs, Medications Changes from previous H/P or p: No Changes General: Per HPI Eyes: No Pain, No Vision change, No Conjunctivae inflammation, No Eyelid inflammation, No Other, No Redness ENT: No Ear pain, No Ear discharge, No Nose pain, No Nose discharge, No Nose congestion, No Mouth pain, No Mouth swelling, No Throat pain, No Throat swelling, No Other Cardiovascular: No Chest Pain, No Palpitations, No Orthopnea, No Paroxysmal Noc. Dyspnea, No Edema, No Lt Headedness; Other (Chest tightness) Respiratory: No Cough, No Dry; Shortness of breath; No SOB with excertion, No Wheezing, No Hemoptysis, No Pleuritic Pain, No Sputum, No Other Gastrointestinal: No Nausea, No Vomiting, No Abdominal Pain, No Diarrhea, No Constipation, No Melena, No Hematochezia, No Other Genitourinary: No Dysuria, No Frequency, No Incontinence, No Hematuria, No Retention, No Other Musculoskeletal: No other, No neck pain, No shoulder pain, No arm pain, No back pain, No hand pain, No leg pain, No foot pain Skin: No Rash, No Lesions, No Jaundice, No Bruising, No Other Objective Vitals Vital Signs Date Time Temp Pulse Resp B/P (MAP) Pulse Ox O2 Delivery O2 Flow Rate FiO2 05/31/24 09:47 158/75 05/31/24 09:00 92 17 99 05/31/24 08:00 99.4 99.4 05/31/24 08:00 Hi-Flow Heated NC+ 30 40 40 Intake/Output Intake and Output 05/31/24 07:00 Intake Total 1676.024 ml Output Total 3050 ml Balance -1373.976 ml Intake Oral 0 ml IV Total 1676.024 ml Output Urine Total 3050 ml General Appearance: Alert, mild distress, Other (Encephalopathic) HEENT: Atraumatic, PERRLA Lungs: Clear to auscultation, Normal air movement, Other (Mechanical ventilation) Cardiovascular: Normal S1, Normal S2 Abdomen: Normal bowel sounds, Soft, No tenderness, No hepatospenomegaly Genitourinary: No Apparent Abnormalities (Aguero catheter) Musculoskeletal: Other (Unable to assess) Skin: Dry, Intact Psych/Mental Status: Other (Unable to assess) Medications Current Medications Medications Dose Ordered Sig/Mindy Route Start Time Stop Time Status Last Admin Dose Admin Norepinephrine Bitartrate 250 ml @ 3.75 mls/hr Q24H IV 05/22/24 09:00 05/23/24 23:15 3.75 MLS/HR Morphine Sulfate 2 mg Q30MP PRN IV 05/22/24 09:00 UNV Morphine Sulfate 2 mg Q30M PRN IV 05/22/24 09:30 Enoxaparin Sodium 30 mg DAILY SC 05/22/24 10:00 05/31/24 09:48 30 MG Acetaminophen 650 mg Q6HP PRN PO 05/22/24 09:00 05/26/24 13:00 650 MG Nitroglycerin 0.4 mg Q5MINP PRN SL 05/22/24 09:00 UNV Nitroglycerin 0.4 mg Q5MINP PRN SL 05/22/24 09:00 Fentanyl Citrate 250 ml @ 2.5 mls/hr Q24H IV 05/22/24 14:45 05/28/24 02:39 7.5 MLS/HR Aspirin 81 mg DAILY PO 05/23/24 10:00 05/30/24 10:28 81 MG Atorvastatin Calcium 40 mg HS PO 05/22/24 22:00 05/28/24 21:07 40 MG Ipratropium [place] 0.5 mg Q4HR NEB 05/23/24 14:00 05/31/24 06:29 0.5 MG Midazolam HCl 50 ml @ 1 mls/hr Q24H IV 05/23/24 12:15 05/25/24 02:40 4 MLS/HR Methylprednisolone Sodium Succinate 40 mg BID IV 05/24/24 22:00 05/31/24 09:47 40 MG Hydralazine HCl 10 mg Q6H PRN IV 05/26/24 03:15 05/29/24 23:53 10 MG Budesonide 0.5 mg BID NEB 05/26/24 22:00 05/31/24 06:29 0.5 MG Labetalol HCl 20 mg Q4HPRN PRN IV 05/26/24 18:00 05/31/24 00:15 20 MG Diagnostic Test (Pha) 1 strip Q6HR 05/27/24 12:00 05/31/24 06:00 1 STRIP Insulin Human Regular FOLLOW SLIDING SCALE Q6HR SC 05/27/24 12:00 05/31/24 06:00 8 UNITS Dextrose 50 ml UD IV 05/27/24 11:00 Vancomycin HCl 0 ml @ 0 mls/hr UD IV 05/28/24 09:45 Vancomycin HCl 250 ml @ 200 mls/hr Q24H IV 05/29/24 10:00 05/30/24 10:13 200 MLS/HR Carvedilol 6.25 mg Q12HR PO 05/29/24 10:30 05/30/24 22:07 6.25 MG Levalbuterol HCl 0.625 mg Q4HR NEB 05/29/24 18:00 05/31/24 06:29 0.625 MG Haloperidol Lactate 5 mg Q8HP PRN IM 05/29/24 19:00 Furosemide 40 mg DAILY IV 05/30/24 10:45 05/31/24 09:47 40 MG Amino Acids 0 ml @ 0 mls/hr PER PHARMACY IV 05/30/24 20:00 Amino Acids/ Electrolytes/ Dextrose 1,000 ml @ 41 mls/hr DAILY@2200 IV 05/30/24 22:00 05/30/24 22:08 41 MLS/HR Lorazepam 1 mg Q8HP PRN IV 05/30/24 21:30 05/31/24 04:19 1 MG Laboratory Results Laboratory Tests 05/31/24 05:00 Chemistry Test 05/31/24 05:00 Calcium Level 9.3 mg/dL (8.7-10.4) Magnesium Level 2.1 mg/dL (1.6-2.6) Phosphorus Level 2.7 mg/dL (2.4-5.1) Urinalysis Test 05/22/24 05:01 Urine Color Light-yellow (Yellow) Urine Clarity Clear (Clear) Urine pH 5.5 (5.0-9.0) Urine Specific [place] 1.011 (1.001-1.035) Urine Protein Trace (Negative) H Urine Ketones Negative (Negative) Urine Blood 1+ /uL (Negative) H Urine Nitrite Negative (Negative) Urine Bilirubin Negative (Negative) Urine Urobilinogen Normal mg/dL (Negative) Urine Leukocyte Esterase Negative /uL (Negative) Urine RBC 2 /hpf (0 - 3) Urine WBC 1 /hpf (0 - 3) Urine Squamous Epithelial Cells None seen /hpf (<5) Urine Bacteria None seen /hpf (None Seen) Urine Glucose Normal mg/dL (Normal) Microbiology Microbiology Date/Time Source Procedure Growth Status 05/26/24 15:50 Bronchial Washings Gram Stain - Final Complete 05/26/24 15:50 Respiratory Culture - Final Staphylococcus aureus Complete 05/24/24 14:28 Nose MRSA Screen - Final Complete 05/22/24 14:50 Blood Blood Culture - Final NO GROWTH AFTER 5 DAYS OF INCUBATION. Complete Labs and/or images reviewed: Labs reviewed by me, Image(s) reviewed by me Assessment/Plan Assessment/Plan Impression: -acute hypoxic respiratory failure mechanical ventilation -COPD with exacerbation -leukocytosis, rule out sepsis -obesity -history of CAD -history of nicotine dependence -NSTEMI type 2 secondary to respiratory failure -acute kidney injury, rule out vasomotor nephropathy -right middle and lower lobe atelectasis -rule out beta-ramon withdrawal Plan: Events: Patient given Ativan for restlessness yesterday evening. Continues to be somewhat somnolent from getting Ativan. Instructed nursing to please use Haldol if patient has signs of agitation/restlessness. Failed swallowing evaluation yesterday. Currently on high-flow nasal cannula at 30 liters/minute and 40% FiO2. -attempt using Oxymizer -physical therapy consultation -continue antibiotic therapy with vancomycin -continue q.4 bronchodilators as well as Pulmicort -Continue Clinimix -12 lead ECG to rule out atrial fibrillation versus multifocal atrial tachycardia -PUD, DVT prophylaxis -repeat labs, chest x-ray in a.m. Critical care time spent with patient discussing and formulating plan of care: 40 minutes. This does not include time spent performing procedures. This medical document was created using an electronic medical record system with [employer] dictation system. Although this document has been carefully reviewed, there may still be some phonetic and typographical errors. These areas are purely typographical due to imperfections of the software programs, and do not reflect any compromise in the patient's medical care. Plan discussed with: Patient, Daughter, Other (RN) My Orders Orders - YOLI KAY NP Procedure Category Date Status Time Furosemide Injection PHA 05/30/24 In Process (Lasix Injection) 10:45 Transfer Orders XFER 05/30/24 Transmitted 12:36 * Swallow Request ST 05/30/24 Transmitted 13:43 Clinimix Per Pharmacy PHA 05/30/24 In Process 20:00 Npo (Nothing By DIET 05/30/24 Transmitted Mouth) Diet Dinner Amino Acid Infusion PHA 05/30/24 In Process In D10w (Clinimix 4. 22:00 Clinimix Per Pharmacy CARLOS 05/30/24 In Process 22:00 Chest Xray 1 View XY 05/31/24 Resulted 08:54 Pt Request For Service PT 05/31/24 Logged 08:54 Complete Blood Count LAB 06/01/24 Verified 04:00 Comprehensive LAB 06/01/24 Verified Metabolic Panel 04:00 Date of Service: May 31, 2024 Billing Provider: YOLI KAY NP Common Visit Codes: [id number] CARE 30-74 MIN YOLI KAY NP May 31, 2024 10:03
--- NOTE | 2024-05-31 10:50 | DVHPN2 ---
Progress Note - Dictate Date Seen: May 31, 2024 Medical Necessity Reason Pt with a Central, PICC or Fol: Yes The following are medically ne: Garcia Catheter Reason for garcia catheter: Strict I&O Subjective Mr. Jeffry Cummins is a 79 years old right-handed gentleman with a history of hypertension, coronary artery disease, heart attack, COPD, he was admitted on 05/22/2024 with a chief complaint of altered mental status, the patient was extubated on 05/29/2024 I have seen and examined the patient, discussed with his nurse and daughter, he keeps improving, he was awake, oriented to person, he knows in the hospital, he follow verbal commands, history has mild respiratory distress Urinalysis, 05/22/2024: WBC: 1, urine leukocyte esterase: Negative ABG, 05/1924: Hypoxia, compensated respiratory acidosis, 05/29/2024: Respiratory acidosis WBC/HB/PLT/MCV, 05/25/2024: 17.9/14.4/211/93.1, 05/29/2024: 10.8/13.9/190/91.6 BUN/CR, 05/29/2024: 28/0.78 HGB A1c, 05/23/24: 6.5 Liver function tests, 05/29/2024: Unremarkable TG/HDL/LDL/HDL, 05/23/2024: 118/112/48/49 TSH, 05/23/2024: 0.71 Chest x-ray, 05/24/2024: Bilateral opacities which may reflect atelectasis.(The endotracheal tube terminates 3.3 cm above the karoline) CT head, 05/20/2024: 1. Global brain atrophy and chronic schema changes without evidence of acute intracranial process. 2. Punctate intra-axial and extra-axial calcifications may be due to remote history of TORCH infection. 3. Mild bilateral maxillary and ethmoid sinus disease. vital signs Vital Sign Date Time Temp Pulse Resp B/P (MAP) Pulse Ox O2 Delivery O2 Flow Rate FiO2 05/31/24 10:14 105 20 100 30.0 40 05/31/24 09:47 158/75 05/31/24 08:00 99.4 99.4 05/31/24 08:00 Hi-Flow Heated NC+ Total Intake and Output 105/30/24 05/31/24 15:00 23:00 07:00 Intake Total 1225.024 ml 164 ml 287 ml Output Total 2350 ml 700 ml Balance 1225.024 ml -2186 ml -413 ml medications Current Medications Medications Dose Ordered Sig/Mindy Route Start Time Stop Time Status Last Admin Dose Admin Morphine Sulfate 2 mg Q30MP PRN IV 05/22/24 09:00 UNV Morphine Sulfate 2 mg Q30M PRN IV 05/22/24 09:30 Enoxaparin Sodium 30 mg DAILY SC 05/22/24 10:00 05/31/24 09:48 30 MG Acetaminophen 650 mg Q6HP PRN PO 05/22/24 09:00 05/26/24 13:00 650 MG Nitroglycerin 0.4 mg Q5MINP PRN SL 05/22/24 09:00 UNV Nitroglycerin 0.4 mg Q5MINP PRN SL 05/22/24 09:00 Fentanyl Citrate 250 ml @ 2.5 mls/hr Q24H IV 05/22/24 14:45 05/28/24 02:39 7.5 MLS/HR Aspirin 81 mg DAILY PO 05/23/24 10:00 05/30/24 10:28 81 MG Atorvastatin Calcium 40 mg HS PO 05/22/24 22:00 05/28/24 21:07 40 MG Ipratropium [place] 0.5 mg Q4HR NEB 05/23/24 14:00 05/31/24 10:13 0.5 MG Midazolam HCl 50 ml @ 1 mls/hr Q24H IV 05/23/24 12:15 05/25/24 02:40 4 MLS/HR Methylprednisolone Sodium Succinate 40 mg BID IV 05/24/24 22:00 05/31/24 09:47 40 MG Hydralazine HCl 10 mg Q6H PRN IV 05/26/24 03:15 05/29/24 23:53 10 MG Budesonide 0.5 mg BID NEB 05/26/24 22:00 05/31/24 06:29 0.5 MG Labetalol HCl 20 mg Q4HPRN PRN IV 05/26/24 18:00 05/31/24 00:15 20 MG Diagnostic Test (Pha) 1 strip Q6HR 05/27/24 12:00 05/31/24 06:00 1 STRIP Insulin Human Regular FOLLOW SLIDING SCALE Q6HR SC 05/27/24 12:00 05/31/24 06:00 8 UNITS Dextrose 50 ml UD IV 05/27/24 11:00 Vancomycin HCl 0 ml @ 0 mls/hr UD IV 05/28/24 09:45 Vancomycin HCl 250 ml @ 200 mls/hr Q24H IV 05/29/24 10:00 05/30/24 10:13 200 MLS/HR Carvedilol 6.25 mg Q12HR PO 05/29/24 10:30 05/30/24 22:07 6.25 MG Levalbuterol HCl 0.625 mg Q4HR NEB 05/29/24 18:00 05/31/24 10:14 0.625 MG Haloperidol Lactate 5 mg Q8HP PRN IM 05/29/24 19:00 Furosemide 40 mg DAILY IV 05/30/24 10:45 05/31/24 09:47 40 MG Amino Acids 0 ml @ 0 mls/hr PER PHARMACY IV 05/30/24 20:00 Amino Acids/ Electrolytes/ Dextrose 1,000 ml @ 41 mls/hr DAILY@2200 IV 05/30/24 22:00 05/30/24 22:08 41 MLS/HR objective General: the patient is well developed and nourished. No acute distress. MENTAL STATUS: Subjective SPEECH, LANGUAGE, HIGHER CORTICAL FUNCTION: No aphasia or dysarthria CRANIAL NERVES: Pupils are equal, round and reactive. EOMs full and conjugate. Facial sensation intact in all three divisions bilaterally. Mandibular strength intact. Facial muscles symmetrical and strength intact. SENSATION: Sensation to touch and pinprick is normal. MOTOR: Normal tone in the upper and lower extremity. Normal muscle bulk. No fasciculations. No abnormal movements or posturing, muscle power in the arms 5/5, in the leg is 4/5 REFLEXES: Deep tendon reflexes normal and symmetrical. No pathological reflexes. CEREBELLAR/COORDINATION: Deferred GAIT/STATION: deferred laboratory and microbiology Laboratory Tests 05/31/24 05:00 Test 05/31/24 05:00 Range/Units Serum Glucose 186 H 74-106 mg/dL Problem List Altered mental status Hypoxic encephalopathy Metabolic encephalopathy Toxic encephalopathy Acute on chronic respiratory failure Respiratory acidosis Pneumonia Assessment/Plan Monitoring Supportive treatment DCU care Oxygen Stabilize vitals Respiratory support/BiPAP Respiratory treatment IV antibiotics Haldol 5 mg intramuscular Q 8 hours p.r.n. for agitation DVT prophylax/Lovenox GI prophylax More recommendation per clinical course This medical document was created using an electronic medical record system with [employer] dictation system. Although this document has been carefully reviewed, there may still be some phonetic and typographical errors. These areas are purely typographical due to imperfections of the software programs, and do not reflect any compromise in the patient's medical care. Prognosis poor Dietary Evaluation Review Comments: 1. Recommend 2 g Na CCHO-60 diet as tolearated if Pt is awake, of vent and passes speech eval. 2. Consider TF Glucerna @ 40ml/hr (58g pro 1152 kcal in 24 hrs in FS), if GI accessible, EN is the choice for nutrition support. Add Clinimix 41ml/hr x 24 hrs for the addiitonal protein needs, 3. Consider TPN per pharmacy if NPO > 7 days and EN not the option of nutrition support. Expected Outcomes/Goals: Improved breathing, gradual wt loss. on PO 2 g Na CCHo-60 diet texture as tolerated. Plan discussed with: Daughter, Other CALEB NORMAN MD May 31, 2024 10:50
[2024-05-31 12:27] LABS: Base Excess 2.4 mmol/L (-2.0-3.0)
[2024-05-31] MEDS: MORPHINE SULFATE INJ 2 MG/ml SYRG IV PRN (21:29)
--- NOTE | 2024-05-31 22:43 | DVHPN2 ---
Progress Note - Dictate Date Seen: May 31, 2024 Medical Necessity Reason Pt with a Central, PICC or Fol: Yes The following are medically ne: Garcia Catheter Reason for garcia catheter: Strict I&O Subjective Patient seen and examined at bedside. Remains on supplemental oxygen Overnight events reviewed. vital signs Vital Sign Date Time Temp Pulse Resp B/P (MAP) Pulse Ox O2 Delivery O2 Flow Rate FiO2 05/31/24 22:26 104 177/104 05/31/24 22:18 22 100 30.0 45 05/31/24 20:00 98.9 98.9 05/31/24 20:00 Hi-Flow Heated NC+ Total Intake and Output 05/30/24 05/30/24 05/31/24 15:00 23:00 07:00 Intake Total 1225.024 ml 164 ml 328 ml Output Total 2350 ml 700 ml Balance 1225.024 ml -2186 ml -372 ml medications Current Medications Medications Dose Ordered Sig/Mindy Route Start Time Stop Time Status Last Admin Dose Admin Morphine Sulfate 2 mg Q30MP PRN IV 05/22/24 09:00 UNV Morphine Sulfate 2 mg Q30M PRN IV 05/22/24 09:30 05/31/24 21:29 2 MG Enoxaparin Sodium 30 mg DAILY SC 05/22/24 10:00 05/31/24 09:48 30 MG Acetaminophen 650 mg Q6HP PRN PO 05/22/24 09:00 05/26/24 13:00 650 MG Nitroglycerin 0.4 mg Q5MINP PRN SL 05/22/24 09:00 UNV Nitroglycerin 0.4 mg Q5MINP PRN SL 05/22/24 09:00 Fentanyl Citrate 250 ml @ 2.5 mls/hr Q24H IV 05/22/24 14:45 05/28/24 02:39 7.5 MLS/HR Aspirin 81 mg DAILY PO 05/23/24 10:00 05/31/24 11:00 81 MG Atorvastatin Calcium 40 mg HS PO 05/22/24 22:00 05/28/24 21:07 40 MG Ipratropium [place] 0.5 mg Q4HR NEB 05/23/24 14:00 05/31/24 22:18 0.5 MG Midazolam HCl 50 ml @ 1 mls/hr Q24H IV 05/23/24 12:15 05/25/24 02:40 4 MLS/HR Methylprednisolone Sodium Succinate 40 mg BID IV 05/24/24 22:00 05/31/24 22:25 40 MG Hydralazine HCl 10 mg Q6H PRN IV 05/26/24 03:15 05/29/24 23:53 10 MG Budesonide 0.5 mg BID NEB 05/26/24 22:00 05/31/24 22:18 0.5 MG Labetalol HCl 20 mg Q4HPRN PRN IV 05/26/24 18:00 05/31/24 18:40 20 MG Diagnostic Test (Pha) 1 strip Q6HR 05/27/24 12:00 05/31/24 17:49 1 STRIP Insulin Human Regular FOLLOW SLIDING SCALE Q6HR SC 05/27/24 12:00 05/31/24 17:55 8 UNITS Dextrose 50 ml UD IV 05/27/24 11:00 Vancomycin HCl 0 ml @ 0 mls/hr UD IV 05/28/24 09:45 Carvedilol 6.25 mg Q12HR PO 05/29/24 10:30 05/31/24 22:26 6.25 MG Levalbuterol HCl 0.625 mg Q4HR NEB 05/29/24 18:00 05/31/24 22:18 0.625 MG Haloperidol Lactate 5 mg Q8HP PRN IM 05/29/24 19:00 Furosemide 40 mg DAILY IV 05/30/24 10:45 05/31/24 09:47 40 MG Amino Acids 0 ml @ 0 mls/hr PER PHARMACY IV 05/30/24 20:00 Amino Acids/ Electrolytes/ Dextrose 1,000 ml @ 41 mls/hr DAILY@2200 IV 05/30/24 22:00 05/31/24 22:25 41 MLS/HR Vancomycin HCl 250 ml @ 250 mls/hr Q18H IV 06/01/24 04:00 objective Gen.: Patient lying in bed in no apparent distress. On supplemental oxygen. Head: Normocephalic, atraumatic. Eyes: EOMI/PERRLA. Ears: Normal hearing. Normal anatomy. Neck/trachea: Trachea midline, supple. Nose: Normal external anatomy. Mouth: Moist mucous membranes. Chest: Decreased air entry bilaterally. No wheezing or rhonchi. Cardiovascular: Positive S1, positive S2. Regular rate and rhythm. Abdomen: Positive bowel sounds in all 4 quadrants. Soft, non-tender, non- distended. : Deferred. Rectal: Deferred. Skin: Warm, dry. Intact. Extremities: 2+ radial pulses bilaterally. No lower extremity edema. Neuro: Awake, alert, oriented x3. No gross motor or sensory deficits. Cranial nerves II through XII intact. Gait not assessed. laboratory and microbiology Laboratory Tests 05/31/24 05:00 Test 05/31/24 05:00 Range/Units Serum Glucose 186 H 74-106 mg/dL Assessment/Plan Impression: Acute hypoxic respiratory failure Acute hypercarbic respiratory failure COPD exacerbation Hx of nicotine dependence Morbid obesity, BMI 40 Atelectasis Events: Remains on high flow O2 at 30 LPM, FiO2 40% Taper flow rate and FiO2 as tolerated. Improved O2 requirements ABG reviewed, compensated. Continue bronchodilators. Continue antibiotics. Continue IV steroids Clinimix for nutritional support HOB elevation Aspiration precautions. Diurese as tolerated w/ Lasix Monitor renal function Monitor electrolytes. Supplement as necessary. Patient failed swallow eval yesterday. S/p therapeutic bronchoscopy with LLL BAL on 05/26/24 - cleared mucous plugging from L6-L10 and R6-R10 Labs and imaging reviewed. Rest of plan as noted below. Plan: s/p extubation on 05/29/24 Continue high flow supplemental oxygen Taper as tolerated - goal to transition to low flow oxygen. Off sedation Off pressors, hemodynamically stable Continue bronchodilators. Continue antibiotics. Continue steroids F/u cultures. Pressors if necessary for hemodynamic support Titrate to keep mean arterial pressure greater than 65 mmHg. Monitor renal function Monitor electrolytes. Supplement as necessary. Monitor ins and outs. Maintain euvolemia. Morbid Obesity - complicates all care GI prophylaxis. DVT prophylaxis. Prognosis: Poor given patient's multiple co-morbidities. Condition: Critical Rest of plan per hospitalist and other consultants. A total of 35 minutes of critical care time was spent reviewing the patient record, examining the patient, making a diagnostic and therapeutic plan, discussing this plan with the medical personnel, following up on diagnostic studies and following the patient for clinical stability excluding any and all procedures. At least 50% of this time was spent in direct, [id number] contact. Thank you, RAFA Thurman, for allowing me to participate in this patient's care. Further recommendations will depend on the patient's clinical course. Please do not hesitate to contact me if you have any questions or concerns. This medical document was created using an electronic medical record system with [employer] dictation system. Although these documentations are being carefully reviewed, there may still be some phonetic and typographical changes. The errors are purely typographical, due to imperfection on the software program, and do not reflect any compromise in the patient's medical care. Dietary Evaluation Review Comments: 1. Recommend 2 g Na CCHO-60 diet as tolearated if Pt is awake, of vent and passes speech eval. 2. Consider TF Glucerna @ 40ml/hr (58g pro 1152 kcal in 24 hrs in FS), if GI accessible, EN is the choice for nutrition support. Add Clinimix 41ml/hr x 24 hrs for the addiitonal protein needs, 3. Consider TPN per pharmacy if NPO > 7 days and EN not the option of nutrition support. Expected Outcomes/Goals: Improved breathing, gradual wt loss. on PO 2 g Na CCHo-60 diet texture as tolerated. Plan discussed with: Patient, Other (MALICK Chavez) Critical Care Time(min): 35 RYAN ROMERO MD May 31, 2024 22:43
[2024-06-01] VITALS (45 sets, daily range): BP systolic 107–164; BP diastolic 66–118; PULSE 91–135; RESP 15–30; TEMP 97.6–98.6; O2SAT 61–100
[2024-06-01] MEDS: VANCOMYCIN 1GM/250ML KIT 250 ML IV SCH (04:26)
[2024-06-01 05:29] LABS: Basophils # (auto) 0.2 10 ^3/uL (0-0.2); Basophils % (auto) 0.6 % (0.0-2.0); Eosinophils # (auto) 0 10 ^3/uL (0-0.8); Hematocrit 43.8 % (41.0-53.0); Hemoglobin 14.7 g/dL (13.5-17.5); Lymphocytes # (auto) 0.4 10 ^3/uL (0.4-5.4); Lymphocytes % (auto) 1.8 % (10.0-50.0); Mean Corpuscular Hemoglobin 30.4 pg (28.0-32.0); Mean Corpuscular Hgb Conc. 33.6 g/dL (32.0-36.0); Mean Corpuscular Volume 90.4 fL (80.0-100.0); Monocytes # (auto) 0.7 10 ^3/uL (0-1.3); Monocytes % (auto) 2.9 % (0.0-12.0); Neutrophils % (auto) 94.7 % (37.0-80.0); Nucleated Red Blood Cells % 0.1 %; Platelet Count (auto) 205 10^3/uL (140-450); Red Blood Cells 4.85 10^6/uL (4.5-5.90); Red Cell Distribution Width 12.9 % (11.8-14.3); White Blood Cell 24.3 10^3/uL (4.4-10.8)
[2024-06-01 05:41] LABS: Alanine Aminotransferase 32 U/L (7-40); Alkaline Phosphatase 57 U/L (46-116); Anion Gap 7 (5-15); Aspartate Aminotransferase 33 U/L (13-40); BUN/Creatinine Ratio 55.2 (10.0-20.0); Calcium 9.3 mg/dL (8.7-10.4); Chloride 105 mmol/L (98-107); Magnesium 2.2 mg/dL (1.6-2.6); Potassium 3.9 mmol/L (3.5-5.1); Sodium 145 mmol/L (136-145)
[2024-06-01 05:46] LABS: Albumin 3.2 g/dL (3.2-4.8); Bilirubin, Total 1.5 mg/dL (0.2-1.0); Blood Urea Nitrogen 48 mg/dL (9-23); Carbon Dioxide 33 mmol/L (20-31); Glucose 190 mg/dL (74-106); Phosphorus 2.4 mg/dL (2.4-5.1); Total Protein 5.2 g/dL (5.7-8.2)
[2024-06-01] MEDS: PANTOPRAZOLE 40 MG/10 ML VIAL INJ IV SCH (09:49)
[2024-06-01] MEDS: CARVEDILOL 3.125 MG TAB PO ONE (09:49)
--- NOTE | 2024-06-01 09:54 | DVHPN2 ---
Subjective Patient intubated and sedated. Reviewed: Care Plan, H&P, Labs, Medications Changes from previous H/P or p: No Changes General: Per HPI Eyes: No Pain, No Vision change, No Conjunctivae inflammation, No Eyelid inflammation, No Other, No Redness ENT: No Ear pain, No Ear discharge, No Nose pain, No Nose discharge, No Nose congestion, No Mouth pain, No Mouth swelling, No Throat pain, No Throat swelling, No Other Cardiovascular: No Chest Pain, No Palpitations, No Orthopnea, No Paroxysmal Noc. Dyspnea, No Edema, No Lt Headedness; Other (Chest tightness) Respiratory: No Cough, No Dry; Shortness of breath; No SOB with excertion, No Wheezing, No Hemoptysis, No Pleuritic Pain, No Sputum, No Other Gastrointestinal: No Nausea, No Vomiting, No Abdominal Pain, No Diarrhea, No Constipation, No Melena, No Hematochezia, No Other Genitourinary: No Dysuria, No Frequency, No Incontinence, No Hematuria, No Retention, No Other Musculoskeletal: No other, No neck pain, No shoulder pain, No arm pain, No back pain, No hand pain, No leg pain, No foot pain Skin: No Rash, No Lesions, No Jaundice, No Bruising, No Other Objective Vitals Vital Signs Date Time Temp Pulse Resp B/P (MAP) Pulse Ox O2 Delivery O2 Flow Rate FiO2 06/01/24 09:35 95 Hi-Flow Heated NC+ 30 30 30 06/01/24 09:34 121 06/01/24 09:34 18 06/01/24 08:18 153/87 06/01/24 08:00 98.5 98.5 Intake/Output Intake and Output 06/01/24 07:00 Intake Total 1443 ml Output Total 1525 ml Balance -82 ml Intake Oral 0 ml IV Total 1443 ml Output Urine Total 1525 ml General Appearance: Alert, Cooperative, mild distress, Other (Encephalopathic) HEENT: Atraumatic, PERRLA Lungs: Clear to auscultation, Normal air movement, Other (Mechanical ventilation) Cardiovascular: Normal S1, Normal S2 Abdomen: Normal bowel sounds, Soft, No tenderness, No hepatospenomegaly Genitourinary: No Apparent Abnormalities (Aguero catheter) Musculoskeletal: Other (Unable to assess) Skin: Dry, Intact Psych/Mental Status: Other (Unable to assess) Medications Current Medications Medications Dose Ordered Sig/Mindy Route Start Time Stop Time Status Last Admin Dose Admin Morphine Sulfate 2 mg Q30MP PRN IV 05/22/24 09:00 UNV Morphine Sulfate 2 mg Q30M PRN IV 05/22/24 09:30 05/31/24 21:29 2 MG Enoxaparin Sodium 30 mg DAILY SC 05/22/24 10:00 06/01/24 08:18 30 MG Acetaminophen 650 mg Q6HP PRN PO 05/22/24 09:00 05/26/24 13:00 650 MG Nitroglycerin 0.4 mg Q5MINP PRN SL 05/22/24 09:00 UNV Nitroglycerin 0.4 mg Q5MINP PRN SL 05/22/24 09:00 Fentanyl Citrate 250 ml @ 2.5 mls/hr Q24H IV 05/22/24 14:45 05/28/24 02:39 7.5 MLS/HR Aspirin 81 mg DAILY PO 05/23/24 10:00 06/01/24 08:17 81 MG Atorvastatin Calcium 40 mg HS PO 05/22/24 22:00 05/28/24 21:07 40 MG Ipratropium [place] 0.5 mg Q4HR NEB 05/23/24 14:00 06/01/24 06:47 0.5 MG Midazolam HCl 50 ml @ 1 mls/hr Q24H IV 05/23/24 12:15 05/25/24 02:40 4 MLS/HR Methylprednisolone Sodium Succinate 40 mg BID IV 05/24/24 22:00 06/01/24 08:20 40 MG Hydralazine HCl 10 mg Q6H PRN IV 05/26/24 03:15 05/31/24 23:24 10 MG Budesonide 0.5 mg BID NEB 05/26/24 22:00 06/01/24 06:47 0.5 MG Labetalol HCl 20 mg Q4HPRN PRN IV 05/26/24 18:00 06/01/24 06:35 20 MG Diagnostic Test (Pha) 1 strip Q6HR 05/27/24 12:00 06/01/24 05:36 1 STRIP Insulin Human Regular FOLLOW SLIDING SCALE Q6HR SC 05/27/24 12:00 06/01/24 05:36 8 UNITS Dextrose 50 ml UD IV 05/27/24 11:00 Vancomycin HCl 0 ml @ 0 mls/hr UD IV 05/28/24 09:45 Levalbuterol HCl 0.625 mg Q4HR NEB 05/29/24 18:00 06/01/24 06:47 0.625 MG Haloperidol Lactate 5 mg Q8HP PRN IM 05/29/24 19:00 Furosemide 40 mg DAILY IV 05/30/24 10:45 06/01/24 08:18 40 MG Amino Acids 0 ml @ 0 mls/hr PER PHARMACY IV 05/30/24 20:00 Amino Acids/ Electrolytes/ Dextrose 1,000 ml @ 41 mls/hr DAILY@2200 IV 05/30/24 22:00 05/31/24 22:25 41 MLS/HR Vancomycin HCl 250 ml @ 250 mls/hr Q18H IV 06/01/24 04:00 06/01/24 04:26 250 MLS/HR Carvedilol 12.5 mg Q12HR PO 06/01/24 10:00 UNV Acetylcysteine 100 mg Q8HR NEB 06/01/24 14:00 UNV Laboratory Results Laboratory Tests 06/01/24 04:46 Chemistry Test 06/01/24 04:46 Albumin 3.2 g/dL (3.2-4.8) Calcium Level 9.3 mg/dL (8.7-10.4) Magnesium Level 2.2 mg/dL (1.6-2.6) Phosphorus Level 2.4 mg/dL (2.4-5.1) Total Protein 5.2 g/dL (5.7-8.2) L LFT Test 06/01/24 04:46 Alanine Aminotransferase (ALT) 32 U/L (7-40) Alkaline Phosphatase 57 U/L (46-116) Aspartate Amino Transferase (AST) 33 U/L (13-40) Total Bilirubin 1.5 mg/dL (0.2-1.0) H Urinalysis Test 05/22/24 05:01 Urine Color Light-yellow (Yellow) Urine Clarity Clear (Clear) Urine pH 5.5 (5.0-9.0) Urine Specific [place] 1.011 (1.001-1.035) Urine Protein Trace (Negative) H Urine Ketones Negative (Negative) Urine Blood 1+ /uL (Negative) H Urine Nitrite Negative (Negative) Urine Bilirubin Negative (Negative) Urine Urobilinogen Normal mg/dL (Negative) Urine Leukocyte Esterase Negative /uL (Negative) Urine RBC 2 /hpf (0 - 3) Urine WBC 1 /hpf (0 - 3) Urine Squamous Epithelial Cells None seen /hpf (<5) Urine Bacteria None seen /hpf (None Seen) Urine Glucose Normal mg/dL (Normal) Blood Gas Results Test 05/31/24 12:21 Arterial Blood pH 7.437 (7.350-7.450) FiO2 % 40.0 Microbiology Microbiology Date/Time Source Procedure Growth Status 05/26/24 15:50 Bronchial Washings Gram Stain - Final Complete 05/26/24 15:50 Respiratory Culture - Final Staphylococcus aureus Complete 05/24/24 14:28 Nose MRSA Screen - Final Complete 05/22/24 14:50 Blood Blood Culture - Final NO GROWTH AFTER 5 DAYS OF INCUBATION. Complete Labs and/or images reviewed: Labs reviewed by me, Image(s) reviewed by me Assessment/Plan Assessment/Plan Impression: -acute hypoxic respiratory failure mechanical ventilation -COPD with exacerbation -leukocytosis, rule out sepsis -obesity -history of CAD -history of nicotine dependence -NSTEMI type 2 secondary to respiratory failure -acute kidney injury, rule out vasomotor nephropathy -right middle and lower lobe atelectasis -rule out beta-ramon withdrawal Plan: Events: Patient continues to be on high-flow nasal cannula at 30 liters/minute and 30% FiO2. Tolerating crush pills with pudding. Repeat swallow evaluation. Continue physical therapy. -attempt using Oxymizer -physical therapy consultation -continue antibiotic therapy with vancomycin -continue q.4 bronchodilators as well as Pulmicort -Continue Clinimix -ECG reveals multifocal atrial tachycardia. Increase carvedilol to 12.5 mg p.o. b.i.d. -PUD, DVT prophylaxis -repeat labs, chest x-ray in a.m. Critical care time spent with patient discussing and formulating plan of care: 40 minutes. This does not include time spent performing procedures. This medical document was created using an electronic medical record system with [employer] dictation system. Although this document has been carefully reviewed, there may still be some phonetic and typographical errors. These areas are purely typographical due to imperfections of the software programs, and do not reflect any compromise in the patient's medical care. Plan discussed with: Patient, Other (RN) My Orders Orders - YOLI KAY NP Procedure Category Date Status Time Clinimix Per Pharmacy [facility] 05/31/24 In Process 22:00 Vancomycin,Trough LAB 06/03/24 Verified 15:00 Vancomycin Per [facility] 06/03/24 In Process Pharmacy Protoc 16:00 Vancomycin 1gm/250ml PHA 06/01/24 In Process Kit 04:00 Abg W/ Co-Ox RT 05/31/24 Logged 12:05 * Swallow Request ST 06/01/24 Transmitted 08:59 Acetylcysteine PHA 06/01/24 In Process Inhalation 10% 14:00 Oxymizer [facility] 06/01/24 In Process 09:31 Pantoprazole PHA 06/01/24 In Process (Protonix) 10:00 Carvedilol Tablet PHA 06/01/24 In Process (Coreg Tablet) 22:00 Date of Service: Jun 01, 2024 Billing Provider: YOLI KAY NP Common Visit Codes: [id number] INP/OBS CARE(HIGH) YOLI KAY NP Jun 01, 2024 09:54
[2024-06-01] MEDS: ACETYLCYSTEINE 10 %(100MG/ML) SOL 4ML NEB SCH (14:52)
[2024-06-01] MEDS: METOPROLOL TARTRATE 1MG/1ML-5ML VIAL IV ONE (15:59)
[2024-06-01] MEDS: VANCOMYCIN 1.25GM/250ML 250 ML IV SCH (18:39)
--- NOTE | 2024-06-01 19:55 | DVHPN2 ---
Progress Note - Dictate Date Seen: Jun 01, 2024 Medical Necessity Reason Pt with a Central, PICC or Fol: Yes The following are medically ne: Garcia Catheter Reason for garcia catheter: Strict I&O Subjective Mr. Jeffry Cummins is a 79 years old right-handed gentleman with a history of hypertension, coronary artery disease, heart attack, COPD, he was admitted on 05/22/2024 with a chief complaint of altered mental status, the patient was extubated on 05/29/2024 I have seen and examined the patient, discussed with his nurse and daughter, he keeps improving, he was awake, oriented to person place, he knows year, likely the month, he follows verbal commands, he was voice is weak and unclear, he moves the arms and the legs Urinalysis, 05/22/2024: WBC: 1, urine leukocyte esterase: Negative ABG, 05/1924: Hypoxia, compensated respiratory acidosis, 05/29/2024: Respiratory acidosis WBC/HB/PLT/MCV, 05/25/2024: 17.9/14.4/211/93.1, 05/29/2024: 10.8/13.9/190/91.6 BUN/CR, 05/29/2024: 28/0.78 HGB A1c, 05/23/24: 6.5 Liver function tests, 05/29/2024: Unremarkable TG/HDL/LDL/HDL, 05/23/2024: 118/112/48/49 TSH, 05/23/2024: 0.71 Chest x-ray, 05/24/2024: Bilateral opacities which may reflect atelectasis.(The endotracheal tube terminates 3.3 cm above the karoline) CT head, 05/20/2024: 1. Global brain atrophy and chronic schema changes without evidence of acute intracranial process. 2. Punctate intra-axial and extra-axial calcifications may be due to remote history of TORCH infection. 3. Mild bilateral maxillary and ethmoid sinus disease. vital signs Vital Sign Date Time Temp Pulse Resp B/P (MAP) Pulse Ox O2 Delivery O2 Flow Rate FiO2 06/01/24 19:00 96 20 133/84 (100) 92 06/01/24 17:52 Hi-Flow Heated NC+ 40 40 40 06/01/24 16:00 98.3 98.3 Total Intake and Output 05/31/24 05/31/24 06/01/24 15:00 23:00 07:00 Intake Total 578 ml 328 ml 578 ml Output Total 925 ml 600 ml Balance 578 ml -597 ml -22 ml medications Current Medications Medications Dose Ordered Sig/Mindy Route Start Time Stop Time Status Last Admin Dose Admin Morphine Sulfate 2 mg Q30MP PRN IV 05/22/24 09:00 UNV Morphine Sulfate 2 mg Q30M PRN IV 05/22/24 09:30 05/31/24 21:29 2 MG Enoxaparin Sodium 30 mg DAILY SC 05/22/24 10:00 06/01/24 08:18 30 MG Acetaminophen 650 mg Q6HP PRN PO 05/22/24 09:00 05/26/24 13:00 650 MG Nitroglycerin 0.4 mg Q5MINP PRN SL 05/22/24 09:00 UNV Nitroglycerin 0.4 mg Q5MINP PRN SL 05/22/24 09:00 Fentanyl Citrate 250 ml @ 2.5 mls/hr Q24H IV 05/22/24 14:45 05/28/24 02:39 7.5 MLS/HR Aspirin 81 mg DAILY PO 05/23/24 10:00 06/01/24 08:17 81 MG Atorvastatin Calcium 40 mg HS PO 05/22/24 22:00 05/28/24 21:07 40 MG Ipratropium [place] 0.5 mg Q4HR NEB 05/23/24 14:00 06/01/24 14:52 0.5 MG Midazolam HCl 50 ml @ 1 mls/hr Q24H IV 05/23/24 12:15 05/25/24 02:40 4 MLS/HR Methylprednisolone Sodium Succinate 40 mg BID IV 05/24/24 22:00 06/01/24 08:20 40 MG Hydralazine HCl 10 mg Q6H PRN IV 05/26/24 03:15 05/31/24 23:24 10 MG Budesonide 0.5 mg BID NEB 05/26/24 22:00 06/01/24 06:47 0.5 MG Labetalol HCl 20 mg Q4HPRN PRN IV 05/26/24 18:00 06/01/24 06:35 20 MG Diagnostic Test (Pha) 1 strip Q6HR 05/27/24 12:00 06/01/24 17:07 1 STRIP Insulin Human Regular FOLLOW SLIDING SCALE Q6HR SC 05/27/24 12:00 06/01/24 17:10 8 UNITS Dextrose 50 ml UD IV 05/27/24 11:00 Vancomycin HCl 0 ml @ 0 mls/hr UD IV 05/28/24 09:45 Levalbuterol HCl 0.625 mg Q4HR NEB 05/29/24 18:00 06/01/24 14:52 0.625 MG Haloperidol Lactate 5 mg Q8HP PRN IM 05/29/24 19:00 Furosemide 40 mg DAILY IV 05/30/24 10:45 06/01/24 08:18 40 MG Amino Acids 0 ml @ 0 mls/hr PER PHARMACY IV 05/30/24 20:00 Amino Acids/ Electrolytes/ Dextrose 1,000 ml @ 41 mls/hr DAILY@2200 IV 05/30/24 22:00 05/31/24 22:25 41 MLS/HR Carvedilol 12.5 mg Q12HR PO 06/01/24 22:00 Acetylcysteine 100 mg Q8HR NEB 06/01/24 14:00 06/01/24 14:52 100 MG Pantoprazole Sodium 40 mg DAILY IV 06/01/24 10:00 06/01/24 09:49 40 MG Vancomycin HCl 250 ml @ 200 mls/hr Q18H IV 06/01/24 18:00 06/01/24 18:39 200 MLS/HR objective General: the patient is well developed and nourished. No acute distress. MENTAL STATUS: Subjective SPEECH, LANGUAGE, HIGHER CORTICAL FUNCTION: No aphasia or dysarthria CRANIAL NERVES: Pupils are equal, round and reactive. EOMs full and conjugate. Facial sensation intact in all three divisions bilaterally. Mandibular strength intact. Facial muscles symmetrical and strength intact. SENSATION: Sensation to touch and pinprick is normal. MOTOR: Normal tone in the upper and lower extremity. Normal muscle bulk. No fasciculations. No abnormal movements or posturing, muscle power in the arms 5/5, in the leg is 4/5 REFLEXES: Deep tendon reflexes normal and symmetrical. No pathological reflexes. CEREBELLAR/COORDINATION: Deferred GAIT/STATION: deferred laboratory and microbiology Laboratory Tests 06/01/24 04:46 Test 06/01/24 04:46 Range/Units Serum Glucose 190 H 74-106 mg/dL Problem List Altered mental status Hypoxic encephalopathy Metabolic encephalopathy Toxic encephalopathy Acute on chronic respiratory failure Respiratory acidosis Pneumonia Assessment/Plan Monitoring Supportive treatment DCU care Oxygen Stabilize vitals Respiratory support/BiPAP Respiratory treatment IV antibiotics Haldol 5 mg intramuscular Q 8 hours p.r.n. for agitation DVT prophylax/Lovenox GI prophylax More recommendation per clinical course This medical document was created using an electronic medical record system with [employer] dictation system. Although this document has been carefully reviewed, there may still be some phonetic and typographical errors. These areas are purely typographical due to imperfections of the software programs, and do not reflect any compromise in the patient's medical care. Prognosis poor Dietary Evaluation Review Comments: 1. Recommend 2 g Na CCHO-60 diet as tolearated if Pt is awake, of vent and passes speech eval. 2. Consider TF Glucerna @ 40ml/hr (58g pro 1152 kcal in 24 hrs in FS), if GI accessible, EN is the choice for nutrition support. Add Clinimix 41ml/hr x 24 hrs for the addiitonal protein needs, 3. Consider TPN per pharmacy if NPO > 7 days and EN not the option of nutrition support. Expected Outcomes/Goals: Improved breathing, gradual wt loss. on PO 2 g Na CCHo-60 diet texture as tolerated. Plan discussed with: CALEB Epstein MD Jun 01, 2024 19:55
[2024-06-01] MEDS: CARVEDILOL 12.5 MG TAB PO SCH (21:38)
--- NOTE | 2024-06-01 21:44 | DVHPN2 ---
Progress Note - Dictate Date Seen: Jun 01, 2024 Medical Necessity Reason Pt with a Central, PICC or Fol: Yes The following are medically ne: Garcia Catheter Reason for garcia catheter: Strict I&O Subjective Patient seen and examined at bedside. Remains on supplemental oxygen Overnight events reviewed. vital signs Vital Sign Date Time Temp Pulse Resp B/P (MAP) Pulse Ox O2 Delivery O2 Flow Rate FiO2 06/01/24 21:00 119 21 147/92 (110) 91 06/01/24 20:00 Hi-Flow Heated NC+ 30 30 30 06/01/24 16:00 98.3 98.3 Total Intake and Output 05/31/24 05/31/24 06/01/24 15:00 23:00 07:00 Intake Total 578 ml 328 ml 578 ml Output Total 925 ml 600 ml Balance 578 ml -597 ml -22 ml medications Current Medications Medications Dose Ordered Sig/Mindy Route Start Time Stop Time Status Last Admin Dose Admin Morphine Sulfate 2 mg Q30MP PRN IV 05/22/24 09:00 UNV Morphine Sulfate 2 mg Q30M PRN IV 05/22/24 09:30 05/31/24 21:29 2 MG Enoxaparin Sodium 30 mg DAILY SC 05/22/24 10:00 06/01/24 08:18 30 MG Acetaminophen 650 mg Q6HP PRN PO 05/22/24 09:00 05/26/24 13:00 650 MG Nitroglycerin 0.4 mg Q5MINP PRN SL 05/22/24 09:00 UNV Nitroglycerin 0.4 mg Q5MINP PRN SL 05/22/24 09:00 Fentanyl Citrate 250 ml @ 2.5 mls/hr Q24H IV 05/22/24 14:45 05/28/24 02:39 7.5 MLS/HR Aspirin 81 mg DAILY PO 05/23/24 10:00 06/01/24 08:17 81 MG Atorvastatin Calcium 40 mg HS PO 05/22/24 22:00 05/28/24 21:07 40 MG Ipratropium [place] 0.5 mg Q4HR NEB 05/23/24 14:00 06/01/24 21:14 0.5 MG Midazolam HCl 50 ml @ 1 mls/hr Q24H IV 05/23/24 12:15 05/25/24 02:40 4 MLS/HR Methylprednisolone Sodium Succinate 40 mg BID IV 05/24/24 22:00 06/01/24 08:20 40 MG Hydralazine HCl 10 mg Q6H PRN IV 05/26/24 03:15 05/31/24 23:24 10 MG Budesonide 0.5 mg BID NEB 05/26/24 22:00 06/01/24 06:47 0.5 MG Labetalol HCl 20 mg Q4HPRN PRN IV 05/26/24 18:00 06/01/24 06:35 20 MG Diagnostic Test (Pha) 1 strip Q6HR 05/27/24 12:00 06/01/24 17:07 1 STRIP Insulin Human Regular FOLLOW SLIDING SCALE Q6HR SC 05/27/24 12:00 06/01/24 17:10 8 UNITS Dextrose 50 ml UD IV 05/27/24 11:00 Vancomycin HCl 0 ml @ 0 mls/hr UD IV 05/28/24 09:45 Levalbuterol HCl 0.625 mg Q4HR NEB 05/29/24 18:00 06/01/24 21:13 0.625 MG Haloperidol Lactate 5 mg Q8HP PRN IM 05/29/24 19:00 Furosemide 40 mg DAILY IV 05/30/24 10:45 06/01/24 08:18 40 MG Amino Acids 0 ml @ 0 mls/hr PER PHARMACY IV 05/30/24 20:00 Amino Acids/ Electrolytes/ Dextrose 1,000 ml @ 41 mls/hr DAILY@2200 IV 05/30/24 22:00 05/31/24 22:25 41 MLS/HR Carvedilol 12.5 mg Q12HR PO 06/01/24 22:00 Acetylcysteine 100 mg Q8HR NEB 06/01/24 14:00 06/01/24 14:52 100 MG Pantoprazole Sodium 40 mg DAILY IV 06/01/24 10:00 06/01/24 09:49 40 MG Vancomycin HCl 250 ml @ 200 mls/hr Q18H IV 06/01/24 18:00 06/01/24 18:39 200 MLS/HR objective Gen.: Patient lying in bed in no apparent distress. On supplemental oxygen. Head: Normocephalic, atraumatic. Eyes: EOMI/PERRLA. Ears: Normal hearing. Normal anatomy. Neck/trachea: Trachea midline, supple. Nose: Normal external anatomy. Mouth: Moist mucous membranes. Chest: Decreased air entry bilaterally. No wheezing or rhonchi. Cardiovascular: Positive S1, positive S2. Regular rate and rhythm. Abdomen: Positive bowel sounds in all 4 quadrants. Soft, non-tender, non- distended. : Deferred. Rectal: Deferred. Skin: Warm, dry. Intact. Extremities: 2+ radial pulses bilaterally. No lower extremity edema. Neuro: Awake, alert, oriented x3. No gross motor or sensory deficits. Cranial nerves II through XII intact. Gait not assessed. laboratory and microbiology Laboratory Tests 06/01/24 04:46 Test 06/01/24 04:46 Range/Units Serum Glucose 190 H 74-106 mg/dL Assessment/Plan Impression: Acute hypoxic respiratory failure Acute hypercarbic respiratory failure COPD exacerbation Hx of nicotine dependence Morbid obesity, BMI 40 Atelectasis Events: Remains on high flow O2 at 30 LPM, FiO2 40% Taper HFO2 to Oxymizer ABG reviewed, notable for alkalemia Off Precedex Patient is out of bed to chair. Continue bronchodilators. Continue antibiotics. Continue IV steroids Clinimix for nutritional support HOB elevation Aspiration precautions. Diurese as tolerated w/ Lasix Monitor renal function Monitor electrolytes. Supplement as necessary. Repeat swallow eval. S/p therapeutic bronchoscopy with LLL BAL on 05/26/24 - cleared mucous plugging from L6-L10 and R6-R10 Labs and imaging reviewed. Rest of plan as noted below. Plan: s/p extubation on 05/29/24 On high flow supplemental oxygen Taper O2 as tolerated to Oxymizer Off sedation Off pressors, hemodynamically stable Continue bronchodilators. Continue antibiotics. Continue steroids F/u cultures. Pressors if necessary for hemodynamic support Titrate to keep mean arterial pressure greater than 65 mmHg. Monitor renal function Monitor electrolytes. Supplement as necessary. Monitor ins and outs. Maintain euvolemia. Morbid Obesity - complicates all care GI prophylaxis. DVT prophylaxis. Prognosis: Poor given patient's multiple co-morbidities. Condition: Critical Rest of plan per hospitalist and other consultants. A total of 35 minutes of critical care time was spent reviewing the patient record, examining the patient, making a diagnostic and therapeutic plan, discussing this plan with the medical personnel, following up on diagnostic studies and following the patient for clinical stability excluding any and all procedures. At least 50% of this time was spent in direct, [id number] contact. Thank you, [facility] [employer] Cuca, for allowing me to participate in this patient's care. Further recommendations will depend on the patient's clinical course. Please do not hesitate to contact me if you have any questions or concerns. This medical document was created using an electronic medical record system with [employer] dictation system. Although these documentations are being carefully reviewed, there may still be some phonetic and typographical changes. The errors are purely typographical, due to imperfection on the software program, and do not reflect any compromise in the patient's medical care. Dietary Evaluation Review Comments: 1. Recommend 2 g Na CCHO-60 diet as tolearated if Pt is awake, of vent and passes speech eval. 2. Consider TF Glucerna @ 40ml/hr (58g pro 1152 kcal in 24 hrs in FS), if GI accessible, EN is the choice for nutrition support. Add Clinimix 41ml/hr x 24 hrs for the addiitonal protein needs, 3. Consider TPN per pharmacy if NPO > 7 days and EN not the option of nutrition support. Expected Outcomes/Goals: Improved breathing, gradual wt loss. on PO 2 g Na CCHo-60 diet texture as tolerated. Plan discussed with: Other (MALICK Abraham) Critical Care Time(min): 35 RYAN ROMERO MD Jun 01, 2024 21:44
[2024-06-02] VITALS (41 sets, daily range): BP systolic 112–172; BP diastolic 47–102; PULSE 25–123; RESP 13–33; TEMP 97.9–99.1; O2SAT 90–100
[2024-06-02 05:18] LABS: Hematocrit 40.6 % (41.0-53.0); Hemoglobin 13.3 g/dL (13.5-17.5); Mean Corpuscular Hemoglobin 30.1 pg (28.0-32.0); Mean Corpuscular Hgb Conc. 32.9 g/dL (32.0-36.0); Mean Corpuscular Volume 91.4 fL (80.0-100.0); Platelet Count (auto) 183 10^3/uL (140-450); Red Blood Cells 4.44 10^6/uL (4.5-5.90); Red Cell Distribution Width 13.1 % (11.8-14.3); White Blood Cell 23.2 10^3/uL (4.4-10.8)
[2024-06-02 05:24] LABS: Band Neutrophils % (manual) 0; Basophils % (manual) 0 (0.0-2.0); Blast Cells 0; Eosinophils % (manual) 0 (0-7); Metamyelocytes % 0; Myelocytes % 0; Promyelocytes % 0; Reactive Lymphocytes 0
[2024-06-02 05:38] LABS: Calcium 9.1 mg/dL (8.7-10.4)
[2024-06-02 05:43] LABS: BUN/Creatinine Ratio 49.5 (10.0-20.0)
[2024-06-02 05:44] LABS: Albumin 3.2 g/dL (3.2-4.8); Magnesium 2.2 mg/dL (1.6-2.6)
[2024-06-02 05:45] LABS: Phosphorus 2.8 mg/dL (2.4-5.1)
[2024-06-02 05:46] LABS: Alanine Aminotransferase 29 U/L (7-40); Albumin 3.2 g/dL (3.2-4.8); Alkaline Phosphatase 53 U/L (46-116); Anion Gap 6 (5-15); Aspartate Aminotransferase 9 U/L (13-40); BUN/Creatinine Ratio 44.2 (10.0-20.0); Bilirubin, Total 1.3 mg/dL (0.2-1.0); Blood Urea Nitrogen 42 mg/dL (9-23); Calcium 8.9 mg/dL (8.7-10.4); Carbon Dioxide 35 mmol/L (20-31); Chloride 105 mmol/L (98-107); Glucose 230 mg/dL (74-106); Potassium 3.4 mmol/L (3.5-5.1); Potassium 3.5 mmol/L (3.5-5.1); Sodium 146 mmol/L (136-145); Total Protein 5.1 g/dL (5.7-8.2)
[2024-06-02 06:19] LABS: Lymphocytes % (manual) 5 (10.0-50.0); Monocytes % (manual) 2 (0-12); Platelet Estimate Adequate
[2024-06-02] MEDS: POTASSIUM CHL 20MEQ/100ML 100 ML IV ONE (12:00)
--- NOTE | 2024-06-02 22:57 | DVHPN2 ---
Progress Note - Dictate Date Seen: Jun 02, 2024 Medical Necessity Reason Pt with a Central, PICC or Fol: Yes The following are medically ne: Garcia Catheter Reason for garcia catheter: Strict I&O Subjective Patient seen and examined at bedside. Remains on supplemental oxygen Overnight events reviewed. vital signs Vital Sign Date Time Temp Pulse Resp B/P (MAP) Pulse Ox O2 Delivery O2 Flow Rate FiO2 06/02/24 22:17 112 22 98 06/02/24 22:10 30.0 30 06/02/24 22:09 168/96 06/02/24 22:00 Hi-Flow Heated NC+ 06/02/24 20:01 98.6 98.6 Total Intake and Output 06/01/24 06/01/24 06/02/24 15:00 23:00 07:00 Intake Total 328 ml 496 ml 328 ml Output Total 2000 ml 800 ml Balance 328 ml -1504 ml -472 ml medications Current Medications Medications Dose Ordered Sig/Mindy Route Start Time Stop Time Status Last Admin Dose Admin Morphine Sulfate 2 mg Q30MP PRN IV 05/22/24 09:00 UNV Morphine Sulfate 2 mg Q30M PRN IV 05/22/24 09:30 05/31/24 21:29 2 MG Enoxaparin Sodium 30 mg DAILY SC 05/22/24 10:00 06/02/24 08:25 30 MG Acetaminophen 650 mg Q6HP PRN PO 05/22/24 09:00 05/26/24 13:00 650 MG Nitroglycerin 0.4 mg Q5MINP PRN SL 05/22/24 09:00 UNV Nitroglycerin 0.4 mg Q5MINP PRN SL 05/22/24 09:00 Fentanyl Citrate 250 ml @ 2.5 mls/hr Q24H IV 05/22/24 14:45 05/28/24 02:39 7.5 MLS/HR Aspirin 81 mg DAILY PO 05/23/24 10:00 06/02/24 08:25 81 MG Atorvastatin Calcium 40 mg HS PO 05/22/24 22:00 06/02/24 21:35 40 MG Ipratropium [place] 0.5 mg Q4HR NEB 05/23/24 14:00 06/02/24 22:11 0.5 MG Midazolam HCl 50 ml @ 1 mls/hr Q24H IV 05/23/24 12:15 05/25/24 02:40 4 MLS/HR Methylprednisolone Sodium Succinate 40 mg BID IV 05/24/24 22:00 06/02/24 21:34 40 MG Hydralazine HCl 10 mg Q6H PRN IV 05/26/24 03:15 06/02/24 22:09 10 MG Budesonide 0.5 mg BID NEB 05/26/24 22:00 06/02/24 22:11 0.5 MG Labetalol HCl 20 mg Q4HPRN PRN IV 05/26/24 18:00 06/02/24 06:34 20 MG Diagnostic Test (Pha) 1 strip Q6HR 05/27/24 12:00 06/02/24 17:04 1 STRIP Insulin Human Regular FOLLOW SLIDING SCALE Q6HR SC 05/27/24 12:00 06/02/24 17:04 8 UNITS Dextrose 50 ml UD IV 05/27/24 11:00 Vancomycin HCl 0 ml @ 0 mls/hr UD IV 05/28/24 09:45 Levalbuterol HCl 0.625 mg Q4HR NEB 05/29/24 18:00 06/02/24 22:11 0.625 MG Haloperidol Lactate 5 mg Q8HP PRN IM 05/29/24 19:00 Furosemide 40 mg DAILY IV 05/30/24 10:45 06/02/24 08:24 40 MG Amino Acids 0 ml @ 0 mls/hr PER PHARMACY IV 05/30/24 20:00 Amino Acids/ Electrolytes/ Dextrose 1,000 ml @ 41 mls/hr DAILY@2200 IV 05/30/24 22:00 06/02/24 21:35 41 MLS/HR Carvedilol 12.5 mg Q12HR PO 06/01/24 22:00 06/02/24 21:35 12.5 MG Acetylcysteine 100 mg Q8HR NEB 06/01/24 14:00 06/02/24 18:12 100 MG Pantoprazole Sodium 40 mg DAILY IV 06/01/24 10:00 06/02/24 08:24 40 MG Vancomycin HCl 250 ml @ 200 mls/hr Q18H IV 06/01/24 18:00 06/02/24 11:37 200 MLS/HR objective Gen.: Patient lying in bed in no apparent distress. On supplemental oxygen. Head: Normocephalic, atraumatic. Eyes: EOMI/PERRLA. Ears: Normal hearing. Normal anatomy. Neck/trachea: Trachea midline, supple. Nose: Normal external anatomy. Mouth: Moist mucous membranes. Chest: Decreased air entry bilaterally. No wheezing or rhonchi. Cardiovascular: Positive S1, positive S2. Regular rate and rhythm. Abdomen: Positive bowel sounds in all 4 quadrants. Soft, non-tender, non- distended. : Deferred. Rectal: Deferred. Skin: Warm, dry. Intact. Extremities: 2+ radial pulses bilaterally. No lower extremity edema. Neuro: Awake, alert, oriented x3. No gross motor or sensory deficits. Cranial nerves II through XII intact. Gait not assessed. laboratory and microbiology Laboratory Tests 06/02/24 04:44 Test 06/02/24 04:44 Range/Units Serum Glucose 230 H 74-106 mg/dL Assessment/Plan Impression: Acute hypoxic respiratory failure Acute hypercarbic respiratory failure COPD exacerbation Hx of nicotine dependence Morbid obesity, BMI 40 Atelectasis Events: Remains on high flow O2 at 30 LPM, FiO2 30% Taper HFO2 to Oxymizer Oxymizer trial in AM. ABG reviewed, notable for alkalemia Continue bronchodilators. Mucomyst Continue antibiotics. Continue steroids CPT Clinimix for nutritional support Failed swallow eval. HOB elevation Aspiration precautions. Diurese as tolerated w/ Lasix Monitor renal function Monitor electrolytes. Supplement as necessary. S/p therapeutic bronchoscopy with LLL BAL on 05/26/24 - cleared mucous plugging from L6-L10 and R6-R10 Labs and imaging reviewed. Rest of plan as noted below. Plan: s/p extubation on 05/29/24 On high flow supplemental oxygen Taper O2 as tolerated to Oxymizer Off sedation Off pressors, hemodynamically stable Continue bronchodilators. Continue antibiotics. Continue steroids F/u cultures. Pressors if necessary for hemodynamic support Titrate to keep mean arterial pressure greater than 65 mmHg. Monitor renal function Monitor electrolytes. Supplement as necessary. Monitor ins and outs. Maintain euvolemia. Morbid Obesity - complicates all care GI prophylaxis. DVT prophylaxis. Prognosis: Poor given patient's multiple co-morbidities. Condition: Critical Rest of plan per hospitalist and other consultants. A total of 35 minutes of critical care time was spent reviewing the patient record, examining the patient, making a diagnostic and therapeutic plan, discussing this plan with the medical personnel, following up on diagnostic studies and following the patient for clinical stability excluding any and all procedures. At least 50% of this time was spent in direct, [id number] contact. Thank you, FEE CLERK Cuca, for allowing me to participate in this patient's care. Further recommendations will depend on the patient's clinical course. Please do not hesitate to contact me if you have any questions or concerns. This medical document was created using an electronic medical record system with [employer] dictation system. Although these documentations are being carefully reviewed, there may still be some phonetic and typographical changes. The errors are purely typographical, due to imperfection on the software program, and do not reflect any compromise in the patient's medical care. Dietary Evaluation Review Comments: 1. Recommend 2 g Na CCHO-60 diet as tolearated if Pt is awake, of vent and passes speech eval. 2. Consider TF Glucerna @ 40ml/hr (58g pro 1152 kcal in 24 hrs in FS), if GI accessible, EN is the choice for nutrition support. Add Clinimix 41ml/hr x 24 hrs for the addiitonal protein needs, 3. Consider TPN per pharmacy if NPO > 7 days and EN not the option of nutrition support. Expected Outcomes/Goals: Improved breathing, gradual wt loss. on PO 2 g Na CCHo-60 diet texture as tolerated. Plan discussed with: Other (MALICK Peterson) Critical Care Time(min): 35 RYAN ROMERO MD Jun 02, 2024 22:57
--- NOTE | 2024-06-02 23:11 | DVHPN2 ---
Progress Note - Dictate Date Seen: Jun 02, 2024 Medical Necessity Reason Pt with a Central, PICC or Fol: Yes The following are medically ne: Garcia Catheter Reason for garcia catheter: Strict I&O Subjective Mr. Jeffry Cummins is a 79 years old right-handed gentleman with a history of hypertension, coronary artery disease, heart attack, COPD, he was admitted on 05/22/2024 with a chief complaint of altered mental status, the patient was extubated on 05/29/2024 I have seen and examined the patient, discussed with his nurse and daughter, he keeps improving but not the voice, he was awake, oriented to person place, he knows year, likely the month, he follows verbal commands, he moves the arms and the legs. He reports congestion in the chest Urinalysis, 05/22/2024: WBC: 1, urine leukocyte esterase: Negative ABG, 05/1924: Hypoxia, compensated respiratory acidosis, 05/29/2024: Respiratory acidosis WBC/HB/PLT/MCV, 05/25/2024: 17.9/14.4/211/93.1, 05/29/2024: 10.8/13.9/190/91.6 BUN/CR, 05/29/2024: 28/0.78 HGB A1c, 05/23/24: 6.5 Liver function tests, 05/29/2024: Unremarkable TG/HDL/LDL/HDL, 05/23/2024: 118/112/48/49 TSH, 05/23/2024: 0.71 Chest x-ray, 05/24/2024: Bilateral opacities which may reflect atelectasis.(The endotracheal tube terminates 3.3 cm above the karoline) CT head, 05/20/2024: 1. Global brain atrophy and chronic schema changes without evidence of acute intracranial process. 2. Punctate intra-axial and extra-axial calcifications may be due to remote history of TORCH infection. 3. Mild bilateral maxillary and ethmoid sinus disease. vital signs Vital Sign Date Time Temp Pulse Resp B/P (MAP) Pulse Ox O2 Delivery O2 Flow Rate FiO2 06/02/24 22:17 112 22 98 06/02/24 22:10 30.0 30 06/02/24 22:09 168/96 06/02/24 22:00 Hi-Flow Heated NC+ 06/02/24 20:01 98.6 98.6 Total Intake and Output 06/01/24 06/01/24 06/02/24 15:00 23:00 07:00 Intake Total 328 ml 496 ml 328 ml Output Total 2000 ml 800 ml Balance 328 ml -1504 ml -472 ml medications Current Medications Medications Dose Ordered Sig/Mindy Route Start Time Stop Time Status Last Admin Dose Admin Morphine Sulfate 2 mg Q30MP PRN IV 05/22/24 09:00 UNV Morphine Sulfate 2 mg Q30M PRN IV 05/22/24 09:30 05/31/24 21:29 2 MG Enoxaparin Sodium 30 mg DAILY SC 05/22/24 10:00 06/02/24 08:25 30 MG Acetaminophen 650 mg Q6HP PRN PO 05/22/24 09:00 05/26/24 13:00 650 MG Nitroglycerin 0.4 mg Q5MINP PRN SL 05/22/24 09:00 UNV Nitroglycerin 0.4 mg Q5MINP PRN SL 05/22/24 09:00 Fentanyl Citrate 250 ml @ 2.5 mls/hr Q24H IV 05/22/24 14:45 05/28/24 02:39 7.5 MLS/HR Aspirin 81 mg DAILY PO 05/23/24 10:00 06/02/24 08:25 81 MG Atorvastatin Calcium 40 mg HS PO 05/22/24 22:00 06/02/24 21:35 40 MG Ipratropium [place] 0.5 mg Q4HR NEB 05/23/24 14:00 06/02/24 22:11 0.5 MG Midazolam HCl 50 ml @ 1 mls/hr Q24H IV 05/23/24 12:15 05/25/24 02:40 4 MLS/HR Methylprednisolone Sodium Succinate 40 mg BID IV 05/24/24 22:00 06/02/24 21:34 40 MG Hydralazine HCl 10 mg Q6H PRN IV 05/26/24 03:15 06/02/24 22:09 10 MG Budesonide 0.5 mg BID NEB 05/26/24 22:00 06/02/24 22:11 0.5 MG Labetalol HCl 20 mg Q4HPRN PRN IV 05/26/24 18:00 06/02/24 06:34 20 MG Diagnostic Test (Pha) 1 strip Q6HR 05/27/24 12:00 06/02/24 17:04 1 STRIP Insulin Human Regular FOLLOW SLIDING SCALE Q6HR SC 05/27/24 12:00 06/02/24 17:04 8 UNITS Dextrose 50 ml UD IV 05/27/24 11:00 Vancomycin HCl 0 ml @ 0 mls/hr UD IV 05/28/24 09:45 Levalbuterol HCl 0.625 mg Q4HR NEB 05/29/24 18:00 06/02/24 22:11 0.625 MG Haloperidol Lactate 5 mg Q8HP PRN IM 05/29/24 19:00 Furosemide 40 mg DAILY IV 05/30/24 10:45 06/02/24 08:24 40 MG Amino Acids 0 ml @ 0 mls/hr PER PHARMACY IV 05/30/24 20:00 Amino Acids/ Electrolytes/ Dextrose 1,000 ml @ 41 mls/hr DAILY@2200 IV 05/30/24 22:00 06/02/24 21:35 41 MLS/HR Carvedilol 12.5 mg Q12HR PO 06/01/24 22:00 06/02/24 21:35 12.5 MG Acetylcysteine 100 mg Q8HR NEB 06/01/24 14:00 06/02/24 18:12 100 MG Pantoprazole Sodium 40 mg DAILY IV 06/01/24 10:00 06/02/24 08:24 40 MG Vancomycin HCl 250 ml @ 200 mls/hr Q18H IV 06/01/24 18:00 06/02/24 11:37 200 MLS/HR objective General: the patient is well developed and nourished. No acute distress. MENTAL STATUS: Subjective SPEECH, LANGUAGE, HIGHER CORTICAL FUNCTION: No aphasia or dysarthria CRANIAL NERVES: Pupils are equal, round and reactive. EOMs full and conjugate. Facial sensation intact in all three divisions bilaterally. Mandibular strength intact. Facial muscles symmetrical and strength intact. SENSATION: Sensation to touch and pinprick is normal. MOTOR: Normal tone in the upper and lower extremity. Normal muscle bulk. No fasciculations. No abnormal movements or posturing, muscle power in the arms 5/5, in the leg is 4/5 REFLEXES: Deep tendon reflexes normal and symmetrical. No pathological reflexes. CEREBELLAR/COORDINATION: Deferred GAIT/STATION: deferred laboratory and microbiology Laboratory Tests 06/02/24 04:44 Test 06/02/24 04:44 Range/Units Serum Glucose 230 H 74-106 mg/dL Problem List Altered mental status Hypoxic encephalopathy Metabolic encephalopathy Toxic encephalopathy Acute on chronic respiratory failure Respiratory acidosis Pneumonia Assessment/Plan Monitoring Supportive treatment DCU care Oxygen Stabilize vitals Respiratory support/BiPAP Respiratory treatment IV antibiotics Haldol 5 mg intramuscular Q 8 hours p.r.n. for agitation Breathing treatment DVT prophylax/Lovenox GI prophylax More recommendation per clinical course This medical document was created using an electronic medical record system with [employer] dictation system. Although this document has been carefully reviewed, there may still be some phonetic and typographical errors. These areas are purely typographical due to imperfections of the software programs, and do not reflect any compromise in the patient's medical care. Prognosis poor Dietary Evaluation Review Comments: 1. Recommend 2 g Na CCHO-60 diet as tolearated if Pt is awake, of vent and passes speech eval. 2. Consider TF Glucerna @ 40ml/hr (58g pro 1152 kcal in 24 hrs in FS), if GI accessible, EN is the choice for nutrition support. Add Clinimix 41ml/hr x 24 hrs for the addiitonal protein needs, 3. Consider TPN per pharmacy if NPO > 7 days and EN not the option of nutrition support. Expected Outcomes/Goals: Improved breathing, gradual wt loss. on PO 2 g Na CCHo-60 diet texture as tolerated. Plan discussed with: Other CALEB NORMAN MD Jun 02, 2024 23:11
[2024-06-03] VITALS (42 sets, daily range): BP systolic 96–162; BP diastolic 67–103; PULSE 83–129; RESP 14–38; TEMP 97.5–98.6; O2SAT 87–99
--- NOTE | 2024-06-03 05:45 | DVH ---
CHEST RADIOGRAPH Indication: resp failure Technique: Single frontal view of the chest was obtained Comparison: XY CHEST XRAY 1 VIEW on DOS: 05/31/24, XY CHEST PORTABLE on DOS: 05/30/24, XY CHEST PORTABL E on DOS: 05/29/24 IMPRESSION: Heart appears stable in size. The lungs appear clear without focal airspace opacity, effusion, or pn eumothorax. Right IJ catheter tip in the region of the superior vena cava.
[2024-06-03 06:00] LABS: Basophils # (auto) 0 10 ^3/uL (0-0.2); Basophils % (auto) 0.1 % (0.0-2.0); Eosinophils # (auto) 0 10 ^3/uL (0-0.8); Hematocrit 40.6 % (41.0-53.0); Hemoglobin 13.6 g/dL (13.5-17.5); Lymphocytes # (auto) 0.5 10 ^3/uL (0.4-5.4); Lymphocytes % (auto) 2.1 % (10.0-50.0); Mean Corpuscular Hemoglobin 30.3 pg (28.0-32.0); Mean Corpuscular Hgb Conc. 33.5 g/dL (32.0-36.0); Mean Corpuscular Volume 90.7 fL (80.0-100.0); Monocytes # (auto) 0.7 10 ^3/uL (0-1.3); Monocytes % (auto) 3.1 % (0.0-12.0); Neutrophils # (auto) 20.2 10 ^3/uL (1.6-8.6); Neutrophils % (auto) 94.7 % (37.0-80.0); Nucleated Red Blood Cells % 0.2 %; Platelet Count (auto) 178 10^3/uL (140-450); Red Blood Cells 4.48 10^6/uL (4.5-5.90); Red Cell Distribution Width 13.4 % (11.8-14.3); White Blood Cell 21.3 10^3/uL (4.4-10.8)
[2024-06-03] MEDS: VANCOMYCIN 1.25GM/250ML 250 ML IV SCH ×2 (06:35→23:21)
[2024-06-03 06:49] LABS: Alanine Aminotransferase 37 U/L (7-40); Albumin 3.3 g/dL (3.2-4.8); Alkaline Phosphatase 59 U/L (46-116); Anion Gap 8 (5-15); Aspartate Aminotransferase 38 U/L (13-40); BUN/Creatinine Ratio 44.2 (10.0-20.0); Calcium 9.4 mg/dL (8.7-10.4); Chloride 105 mmol/L (98-107); Magnesium 2.3 mg/dL (1.6-2.6); Phosphorus 3.1 mg/dL (2.4-5.1)
[2024-06-03 06:50] LABS: Bilirubin, Total 1.9 mg/dL (0.2-1.0); Blood Urea Nitrogen 46 mg/dL (9-23); Carbon Dioxide 35 mmol/L (20-31); Glucose 215 mg/dL (74-106); Potassium 3.4 mmol/L (3.5-5.1); Sodium 148 mmol/L (136-145); Total Protein 5.3 g/dL (5.7-8.2)
[2024-06-03] MEDS: POTASSIUM CHL 20MEQ/100ML 100 ML IV ONE (13:18)
--- NOTE | 2024-06-03 15:26 | DVHPN2 ---
Reviewed: Care Plan, H&P, Labs, Medications Changes from previous H/P or p: No Changes General: Per HPI Eyes: No Pain, No Vision change, No Conjunctivae inflammation, No Eyelid inflammation, No Other, No Redness ENT: No Ear pain, No Ear discharge, No Nose pain, No Nose discharge, No Nose congestion, No Mouth pain, No Mouth swelling, No Throat pain, No Throat swelling, No Other Cardiovascular: No Chest Pain, No Palpitations, No Orthopnea, No Paroxysmal Noc. Dyspnea, No Edema, No Lt Headedness; Other (Chest tightness) Respiratory: No Cough, No Dry; Shortness of breath; No SOB with excertion, No Wheezing, No Hemoptysis, No Pleuritic Pain, No Sputum, No Other Gastrointestinal: No Nausea, No Vomiting, No Abdominal Pain, No Diarrhea, No Constipation, No Melena, No Hematochezia, No Other Genitourinary: No Dysuria, No Frequency, No Incontinence, No Hematuria, No Retention, No Other Musculoskeletal: No other, No neck pain, No shoulder pain, No arm pain, No back pain, No hand pain, No leg pain, No foot pain Skin: No Rash, No Lesions, No Jaundice, No Bruising, No Other Objective Vitals Vital Signs Date Time Temp Pulse Resp B/P (MAP) Pulse Ox O2 Delivery O2 Flow Rate FiO2 06/03/24 14:18 83 22 93 30.0 40 06/03/24 14:00 Hi-Flow Heated NC+ 06/03/24 13:00 140/103 (115) 06/03/24 12:00 97.5 97.5 Intake/Output Intake and Output 06/03/24 07:00 Intake Total 1244 ml Output Total 2575 ml Balance -1331 ml Intake Oral 10 ml IV Total 1234 ml Output Urine Total 2575 ml General Appearance: Alert, Cooperative, mild distress, Other (Encephalopathic) HEENT: Atraumatic, PERRLA Lungs: Clear to auscultation, Normal air movement, Other (Mechanical ventilation) Cardiovascular: Normal S1, Normal S2 Abdomen: Normal bowel sounds, Soft, No tenderness, No hepatospenomegaly Genitourinary: No Apparent Abnormalities (Aguero catheter) Musculoskeletal: Other (Unable to assess) Skin: Dry, Intact Psych/Mental Status: Other (Unable to assess) Medications Current Medications Medications Dose Ordered Sig/Mindy Route Start Time Stop Time Status Last Admin Dose Admin Morphine Sulfate 2 mg Q30MP PRN IV 05/22/24 09:00 UNV Morphine Sulfate 2 mg Q30M PRN IV 05/22/24 09:30 05/31/24 21:29 2 MG Enoxaparin Sodium 30 mg DAILY SC 05/22/24 10:00 06/03/24 08:08 30 MG Acetaminophen 650 mg Q6HP PRN PO 05/22/24 09:00 05/26/24 13:00 650 MG Nitroglycerin 0.4 mg Q5MINP PRN SL 05/22/24 09:00 UNV Nitroglycerin 0.4 mg Q5MINP PRN SL 05/22/24 09:00 Fentanyl Citrate 250 ml @ 2.5 mls/hr Q24H IV 05/22/24 14:45 05/28/24 02:39 7.5 MLS/HR Aspirin 81 mg DAILY PO 05/23/24 10:00 06/03/24 08:06 81 MG Atorvastatin Calcium 40 mg HS PO 05/22/24 22:00 06/02/24 21:35 40 MG Ipratropium [place] 0.5 mg Q4HR NEB 05/23/24 14:00 06/03/24 14:18 0.5 MG Midazolam HCl 50 ml @ 1 mls/hr Q24H IV 05/23/24 12:15 05/25/24 02:40 4 MLS/HR Methylprednisolone Sodium Succinate 40 mg BID IV 05/24/24 22:00 06/03/24 08:07 40 MG Hydralazine HCl 10 mg Q6H PRN IV 05/26/24 03:15 06/02/24 22:09 10 MG Budesonide 0.5 mg BID NEB 05/26/24 22:00 06/03/24 06:55 0.5 MG Labetalol HCl 20 mg Q4HPRN PRN IV 05/26/24 18:00 06/02/24 06:34 20 MG Diagnostic Test (Pha) 1 strip Q6HR 05/27/24 12:00 06/03/24 12:00 1 STRIP Insulin Human Regular FOLLOW SLIDING SCALE Q6HR SC 05/27/24 12:00 06/03/24 12:00 8 UNITS Dextrose 50 ml UD IV 05/27/24 11:00 Vancomycin HCl 0 ml @ 0 mls/hr UD IV 05/28/24 09:45 Levalbuterol HCl 0.625 mg Q4HR NEB 05/29/24 18:00 06/03/24 14:18 0.625 MG Haloperidol Lactate 5 mg Q8HP PRN IM 05/29/24 19:00 Furosemide 40 mg DAILY IV 05/30/24 10:45 06/03/24 08:07 40 MG Amino Acids 0 ml @ 0 mls/hr PER PHARMACY IV 05/30/24 20:00 Amino Acids/ Electrolytes/ Dextrose 1,000 ml @ 41 mls/hr DAILY@2200 IV 05/30/24 22:00 06/02/24 21:35 41 MLS/HR Carvedilol 12.5 mg Q12HR PO 06/01/24 22:00 06/03/24 08:06 12.5 MG Acetylcysteine 100 mg Q8HR NEB 06/01/24 14:00 06/03/24 14:18 100 MG Pantoprazole Sodium 40 mg DAILY IV 06/01/24 10:00 06/03/24 08:07 40 MG Vancomycin HCl 250 ml @ 200 mls/hr Q18H IV 06/04/24 00:00 Laboratory Results Laboratory Tests 06/03/24 04:42 Chemistry Test 06/03/24 04:42 Albumin 3.3 g/dL (3.2-4.8) Calcium Level 9.4 mg/dL (8.7-10.4) Magnesium Level 2.3 mg/dL (1.6-2.6) Phosphorus Level 3.1 mg/dL (2.4-5.1) Total Protein 5.3 g/dL (5.7-8.2) L LFT Test 06/03/24 04:42 Alanine Aminotransferase (ALT) 37 U/L (7-40) Alkaline Phosphatase 59 U/L (46-116) Aspartate Amino Transferase (AST) 38 U/L (13-40) Total Bilirubin 1.9 mg/dL (0.2-1.0) H Urinalysis Test 05/22/24 05:01 Urine Color Light-yellow (Yellow) Urine Clarity Clear (Clear) Urine pH 5.5 (5.0-9.0) Urine Specific [place] 1.011 (1.001-1.035) Urine Protein Trace (Negative) H Urine Ketones Negative (Negative) Urine Blood 1+ /uL (Negative) H Urine Nitrite Negative (Negative) Urine Bilirubin Negative (Negative) Urine Urobilinogen Normal mg/dL (Negative) Urine Leukocyte Esterase Negative /uL (Negative) Urine RBC 2 /hpf (0 - 3) Urine WBC 1 /hpf (0 - 3) Urine Squamous Epithelial Cells None seen /hpf (<5) Urine Bacteria None seen /hpf (None Seen) Urine Glucose Normal mg/dL (Normal) Microbiology Microbiology Date/Time Source Procedure Growth Status 05/26/24 15:50 Bronchial Washings Gram Stain - Final Complete 05/26/24 15:50 Respiratory Culture - Final Staphylococcus aureus Complete 05/24/24 14:28 Nose MRSA Screen - Final Complete 05/22/24 14:50 Blood Blood Culture - Final NO GROWTH AFTER 5 DAYS OF INCUBATION. Complete Labs and/or images reviewed: Labs reviewed by me, Image(s) reviewed by me Assessment/Plan Assessment/Plan Impression: -acute hypoxic respiratory failure mechanical ventilation -COPD with exacerbation -leukocytosis, rule out sepsis -obesity -history of CAD -history of nicotine dependence -NSTEMI type 2 secondary to respiratory failure -acute kidney injury, rule out vasomotor nephropathy -right middle and lower lobe atelectasis -rule out beta-ramon withdrawal Plan: Events: Patient continues to be on high-flow nasal cannula at 30 liters/minute and 30% FiO2. Tolerating crush pills with pudding. Repeat swallow evaluation. Continue physical therapy. -attempt using Oxymizer -physical therapy consultation -continue antibiotic therapy with vancomycin -continue q.4 bronchodilators as well as Pulmicort -Continue Clinimix -ECG reveals multifocal atrial tachycardia. Increase carvedilol to 12.5 mg p.o. b.i.d. -PUD, DVT prophylaxis -repeat labs, chest x-ray in a.m. Critical care time spent with patient discussing and formulating plan of care: 40 minutes. This does not include time spent performing procedures. Plan discussed with: Patient My Orders Orders - TAB BERMUDEZ DO Procedure Category Date Status Time Chest Portable XY 06/03/24 Resulted 04:00 * Swallow Request ST 06/03/24 Transmitted 08:00 Npo (Nothing By DIET 06/03/24 Transmitted Mouth) Diet Lunch Date of Service: Jun 02, 2024 Billing Provider: TAB BERMUDEZ DO Common Visit Codes: [id number] INP/OBS CARE(HIGH) TAB BERMUDEZ DO Jun 03, 2024 15:26
--- NOTE | 2024-06-03 15:29 | DVHPN2 ---
Reviewed: Care Plan, H&P, Labs, Medications Changes from previous H/P or p: No Changes General: Per HPI Eyes: No Pain, No Vision change, No Conjunctivae inflammation, No Eyelid inflammation, No Other, No Redness ENT: No Ear pain, No Ear discharge, No Nose pain, No Nose discharge, No Nose congestion, No Mouth pain, No Mouth swelling, No Throat pain, No Throat swelling, No Other Cardiovascular: No Chest Pain, No Palpitations, No Orthopnea, No Paroxysmal Noc. Dyspnea, No Edema, No Lt Headedness; Other (Chest tightness) Respiratory: No Cough, No Dry; Shortness of breath; No SOB with excertion, No Wheezing, No Hemoptysis, No Pleuritic Pain, No Sputum, No Other Gastrointestinal: No Nausea, No Vomiting, No Abdominal Pain, No Diarrhea, No Constipation, No Melena, No Hematochezia, No Other Genitourinary: No Dysuria, No Frequency, No Incontinence, No Hematuria, No Retention, No Other Musculoskeletal: No other, No neck pain, No shoulder pain, No arm pain, No back pain, No hand pain, No leg pain, No foot pain Skin: No Rash, No Lesions, No Jaundice, No Bruising, No Other Objective Vitals Vital Signs Date Time Temp Pulse Resp B/P (MAP) Pulse Ox O2 Delivery O2 Flow Rate FiO2 06/03/24 14:18 83 22 93 30.0 40 06/03/24 14:00 Hi-Flow Heated NC+ 06/03/24 13:00 140/103 (115) 06/03/24 12:00 97.5 97.5 Intake/Output Intake and Output 06/03/24 07:00 Intake Total 1244 ml Output Total 2575 ml Balance -1331 ml Intake Oral 10 ml IV Total 1234 ml Output Urine Total 2575 ml General Appearance: Alert, Cooperative, mild distress, Other (Encephalopathic) HEENT: Atraumatic, PERRLA Lungs: Clear to auscultation, Normal air movement, Other (Mechanical ventilation) Cardiovascular: Normal S1, Normal S2 Abdomen: Normal bowel sounds, Soft, No tenderness, No hepatospenomegaly Genitourinary: No Apparent Abnormalities (Aguero catheter) Musculoskeletal: Other (Unable to assess) Skin: Dry, Intact Psych/Mental Status: Other (Unable to assess) Medications Current Medications Medications Dose Ordered Sig/Mindy Route Start Time Stop Time Status Last Admin Dose Admin Morphine Sulfate 2 mg Q30MP PRN IV 05/22/24 09:00 UNV Morphine Sulfate 2 mg Q30M PRN IV 05/22/24 09:30 05/31/24 21:29 2 MG Enoxaparin Sodium 30 mg DAILY SC 05/22/24 10:00 06/03/24 08:08 30 MG Acetaminophen 650 mg Q6HP PRN PO 05/22/24 09:00 05/26/24 13:00 650 MG Nitroglycerin 0.4 mg Q5MINP PRN SL 05/22/24 09:00 UNV Nitroglycerin 0.4 mg Q5MINP PRN SL 05/22/24 09:00 Fentanyl Citrate 250 ml @ 2.5 mls/hr Q24H IV 05/22/24 14:45 05/28/24 02:39 7.5 MLS/HR Aspirin 81 mg DAILY PO 05/23/24 10:00 06/03/24 08:06 81 MG Atorvastatin Calcium 40 mg HS PO 05/22/24 22:00 06/02/24 21:35 40 MG Ipratropium [place] 0.5 mg Q4HR NEB 05/23/24 14:00 06/03/24 14:18 0.5 MG Midazolam HCl 50 ml @ 1 mls/hr Q24H IV 05/23/24 12:15 05/25/24 02:40 4 MLS/HR Methylprednisolone Sodium Succinate 40 mg BID IV 05/24/24 22:00 06/03/24 08:07 40 MG Hydralazine HCl 10 mg Q6H PRN IV 05/26/24 03:15 06/02/24 22:09 10 MG Budesonide 0.5 mg BID NEB 05/26/24 22:00 06/03/24 06:55 0.5 MG Labetalol HCl 20 mg Q4HPRN PRN IV 05/26/24 18:00 06/02/24 06:34 20 MG Diagnostic Test (Pha) 1 strip Q6HR 05/27/24 12:00 06/03/24 12:00 1 STRIP Insulin Human Regular FOLLOW SLIDING SCALE Q6HR SC 05/27/24 12:00 06/03/24 12:00 8 UNITS Dextrose 50 ml UD IV 05/27/24 11:00 Vancomycin HCl 0 ml @ 0 mls/hr UD IV 05/28/24 09:45 Levalbuterol HCl 0.625 mg Q4HR NEB 05/29/24 18:00 06/03/24 14:18 0.625 MG Haloperidol Lactate 5 mg Q8HP PRN IM 05/29/24 19:00 Furosemide 40 mg DAILY IV 05/30/24 10:45 06/03/24 08:07 40 MG Amino Acids 0 ml @ 0 mls/hr PER PHARMACY IV 05/30/24 20:00 Amino Acids/ Electrolytes/ Dextrose 1,000 ml @ 41 mls/hr DAILY@2200 IV 05/30/24 22:00 06/02/24 21:35 41 MLS/HR Carvedilol 12.5 mg Q12HR PO 06/01/24 22:00 06/03/24 08:06 12.5 MG Acetylcysteine 100 mg Q8HR NEB 06/01/24 14:00 06/03/24 14:18 100 MG Pantoprazole Sodium 40 mg DAILY IV 06/01/24 10:00 06/03/24 08:07 40 MG Vancomycin HCl 250 ml @ 200 mls/hr Q18H IV 06/04/24 00:00 Laboratory Results Laboratory Tests 06/03/24 04:42 Chemistry Test 06/03/24 04:42 Albumin 3.3 g/dL (3.2-4.8) Calcium Level 9.4 mg/dL (8.7-10.4) Magnesium Level 2.3 mg/dL (1.6-2.6) Phosphorus Level 3.1 mg/dL (2.4-5.1) Total Protein 5.3 g/dL (5.7-8.2) L LFT Test 06/03/24 04:42 Alanine Aminotransferase (ALT) 37 U/L (7-40) Alkaline Phosphatase 59 U/L (46-116) Aspartate Amino Transferase (AST) 38 U/L (13-40) Total Bilirubin 1.9 mg/dL (0.2-1.0) H Urinalysis Test 05/22/24 05:01 Urine Color Light-yellow (Yellow) Urine Clarity Clear (Clear) Urine pH 5.5 (5.0-9.0) Urine Specific Peyton 1.011 (1.001-1.035) Urine Protein Trace (Negative) H Urine Ketones Negative (Negative) Urine Blood 1+ /uL (Negative) H Urine Nitrite Negative (Negative) Urine Bilirubin Negative (Negative) Urine Urobilinogen Normal mg/dL (Negative) Urine Leukocyte Esterase Negative /uL (Negative) Urine RBC 2 /hpf (0 - 3) Urine WBC 1 /hpf (0 - 3) Urine Squamous Epithelial Cells None seen /hpf (<5) Urine Bacteria None seen /hpf (None Seen) Urine Glucose Normal mg/dL (Normal) Microbiology Microbiology Date/Time Source Procedure Growth Status 05/26/24 15:50 Bronchial Washings Gram Stain - Final Complete 05/26/24 15:50 Respiratory Culture - Final Staphylococcus aureus Complete 05/24/24 14:28 Nose MRSA Screen - Final Complete 05/22/24 14:50 Blood Blood Culture - Final NO GROWTH AFTER 5 DAYS OF INCUBATION. Complete Assessment/Plan Assessment/Plan Impression: -acute hypoxic respiratory failure mechanical ventilation -COPD with exacerbation -leukocytosis, rule out sepsis -obesity -history of CAD -history of nicotine dependence -NSTEMI type 2 secondary to respiratory failure -acute kidney injury, rule out vasomotor nephropathy -right middle and lower lobe atelectasis -rule out beta-ramon withdrawal Plan: Events: Patient continues to be on high-flow nasal cannula at 30 liters/minute and 30% FiO2. Tolerating crush pills with pudding. Repeat swallow evaluation. Continue physical therapy. -attempt using Oxymizer -physical therapy consultation -continue antibiotic therapy with vancomycin -continue q.4 bronchodilators as well as Pulmicort -Continue Clinimix -ECG reveals multifocal atrial tachycardia. Increase carvedilol to 12.5 mg p.o. b.i.d. -PUD, DVT prophylaxis -repeat labs, chest x-ray in a.m. Critical care time spent with patient discussing and formulating plan of care: 40 minutes. This does not include time spent performing procedures. My Orders Orders - TAB BERMUDEZ DO Procedure Category Date Status Time Chest Portable XY 06/03/24 Resulted 04:00 * Swallow Request ST 06/03/24 Transmitted 08:00 Npo (Nothing By DIET 06/03/24 Transmitted Mouth) Diet Lunch Date of Service: Jun 03, 2024 Billing Provider: TAB BERMUDEZ DO Common Visit Codes: [id number] INP/OBS CARE(HIGH) TAB BERMUDEZ DO Jun 03, 2024 15:29
--- NOTE | 2024-06-03 22:28 | DVHPN2 ---
Progress Note - Dictate Date Seen: Jun 03, 2024 Medical Necessity Reason Pt with a Central, PICC or Fol: Yes The following are medically ne: Garcia Catheter Reason for garcia catheter: Strict I&O Subjective Patient seen and examined at bedside. Remains on supplemental oxygen Overnight events reviewed. vital signs Vital Sign Date Time Temp Pulse Resp B/P (MAP) Pulse Ox O2 Delivery O2 Flow Rate FiO2 06/03/24 22:03 91 14 91 30.0 35 06/03/24 21:47 129/72 06/03/24 20:00 Hi-Flow Heated NC+ 06/03/24 20:00 97.9 97.9 Total Intake and Output 06/02/24 06/02/24 06/03/24 15:00 23:00 07:00 Intake Total 578 ml 328 ml 338 ml Output Total 1900 ml 675 ml Balance 578 ml -1572 ml -337 ml medications Current Medications Medications Dose Ordered Sig/Mindy Route Start Time Stop Time Status Last Admin Dose Admin Morphine Sulfate 2 mg Q30MP PRN IV 05/22/24 09:00 UNV Morphine Sulfate 2 mg Q30M PRN IV 05/22/24 09:30 05/31/24 21:29 2 MG Enoxaparin Sodium 30 mg DAILY SC 05/22/24 10:00 06/03/24 08:08 30 MG Acetaminophen 650 mg Q6HP PRN PO 05/22/24 09:00 05/26/24 13:00 650 MG Nitroglycerin 0.4 mg Q5MINP PRN SL 05/22/24 09:00 UNV Nitroglycerin 0.4 mg Q5MINP PRN SL 05/22/24 09:00 Fentanyl Citrate 250 ml @ 2.5 mls/hr Q24H IV 05/22/24 14:45 05/28/24 02:39 7.5 MLS/HR Aspirin 81 mg DAILY PO 05/23/24 10:00 06/03/24 08:06 81 MG Atorvastatin Calcium 40 mg HS PO 05/22/24 22:00 06/03/24 21:47 40 MG Ipratropium [place] 0.5 mg Q4HR NEB 05/23/24 14:00 06/03/24 22:03 0.5 MG Midazolam HCl 50 ml @ 1 mls/hr Q24H IV 05/23/24 12:15 05/25/24 02:40 4 MLS/HR Methylprednisolone Sodium Succinate 40 mg BID IV 05/24/24 22:00 06/03/24 21:46 40 MG Hydralazine HCl 10 mg Q6H PRN IV 05/26/24 03:15 06/02/24 22:09 10 MG Budesonide 0.5 mg BID NEB 05/26/24 22:00 06/03/24 22:03 0.5 MG Labetalol HCl 20 mg Q4HPRN PRN IV 05/26/24 18:00 06/02/24 06:34 20 MG Diagnostic Test (Pha) 1 strip Q6HR 05/27/24 12:00 06/03/24 17:25 1 STRIP Insulin Human Regular FOLLOW SLIDING SCALE Q6HR SC 05/27/24 12:00 06/03/24 17:25 8 UNITS Dextrose 50 ml UD IV 05/27/24 11:00 Vancomycin HCl 0 ml @ 0 mls/hr UD IV 05/28/24 09:45 Levalbuterol HCl 0.625 mg Q4HR NEB 05/29/24 18:00 06/03/24 22:03 0.625 MG Haloperidol Lactate 5 mg Q8HP PRN IM 05/29/24 19:00 Furosemide 40 mg DAILY IV 05/30/24 10:45 06/03/24 08:07 40 MG Amino Acids 0 ml @ 0 mls/hr PER PHARMACY IV 05/30/24 20:00 Amino Acids/ Electrolytes/ Dextrose 1,000 ml @ 41 mls/hr DAILY@2200 IV 05/30/24 22:00 06/03/24 21:46 41 MLS/HR Carvedilol 12.5 mg Q12HR PO 06/01/24 22:00 06/03/24 21:47 12.5 MG Acetylcysteine 100 mg Q8HR NEB 06/01/24 14:00 06/03/24 22:04 100 MG Pantoprazole Sodium 40 mg DAILY IV 06/01/24 10:00 06/03/24 08:07 40 MG Vancomycin HCl 250 ml @ 200 mls/hr Q18H IV 06/04/24 00:00 objective Gen.: Patient lying in bed in no apparent distress. On supplemental oxygen. Head: Normocephalic, atraumatic. Eyes: EOMI/PERRLA. Ears: Normal hearing. Normal anatomy. Neck/trachea: Trachea midline, supple. Nose: Normal external anatomy. Mouth: Moist mucous membranes. Chest: Decreased air entry bilaterally. No wheezing or rhonchi. Cardiovascular: Positive S1, positive S2. Regular rate and rhythm. Abdomen: Positive bowel sounds in all 4 quadrants. Soft, non-tender, non- distended. : Deferred. Rectal: Deferred. Skin: Warm, dry. Intact. Extremities: 2+ radial pulses bilaterally. No lower extremity edema. Neuro: Awake, alert, oriented x3. No gross motor or sensory deficits. Cranial nerves II through XII intact. Gait not assessed. laboratory and microbiology Laboratory Tests 06/03/24 04:42 Test 06/03/24 04:42 Range/Units Serum Glucose 215 H 74-106 mg/dL Assessment/Plan Impression: Acute hypoxic respiratory failure Acute hypercarbic respiratory failure COPD exacerbation Hx of nicotine dependence Morbid obesity, BMI 40 Atelectasis Events: Remains on high flow O2 at 30 LPM, FiO2 30% Taper HFO2 to Oxymizer Increased FiO2 requirements overnight Continue bronchodilators. Continue antibiotics. Continue steroids Clinimix for nutritional support Failed swallow eval. HOB elevation Aspiration precautions. Diurese as tolerated w/ Lasix Monitor renal function Monitor electrolytes. Supplement as necessary. S/p therapeutic bronchoscopy with LLL BAL on 05/26/24 - cleared mucous plugging from L6-L10 and R6-R10 Labs and imaging reviewed. Rest of plan as noted below. Plan: s/p extubation on 05/29/24 On high flow supplemental oxygen Taper O2 as tolerated to Oxymizer Off sedation Off pressors, hemodynamically stable Continue bronchodilators. Continue antibiotics. Continue steroids F/u cultures. Pressors if necessary for hemodynamic support Titrate to keep mean arterial pressure greater than 65 mmHg. Monitor renal function Monitor electrolytes. Supplement as necessary. Monitor ins and outs. Maintain euvolemia. Morbid Obesity - complicates all care GI prophylaxis. DVT prophylaxis. Prognosis: Poor given patient's multiple co-morbidities. Condition: Critical Rest of plan per hospitalist and other consultants. A total of 35 minutes of critical care time was spent reviewing the patient record, examining the patient, making a diagnostic and therapeutic plan, discussing this plan with the medical personnel, following up on diagnostic studies and following the patient for clinical stability excluding any and all procedures. At least 50% of this time was spent in direct, [id number] contact. Thank you, ROLL WINDER Cuca, for allowing me to participate in this patient's care. Further recommendations will depend on the patient's clinical course. Please do not hesitate to contact me if you have any questions or concerns. This medical document was created using an electronic medical record system with [employer] dictation system. Although these documentations are being carefully reviewed, there may still be some phonetic and typographical changes. The errors are purely typographical, due to imperfection on the software program, and do not reflect any compromise in the patient's medical care. Dietary Evaluation Review Comments: 1. Recommend 2 g Na CCHO-60 diet as tolearated if Pt is awake, of vent and passes speech eval. 2. Consider TF Glucerna @ 40ml/hr (58g pro 1152 kcal in 24 hrs in FS), if GI accessible, EN is the choice for nutrition support. Add Clinimix 41ml/hr x 24 hrs for the addiitonal protein needs, 3. Consider TPN per pharmacy if NPO > 7 days and EN not the option of nutrition support. Expected Outcomes/Goals: Improved breathing, gradual wt loss. on PO 2 g Na CCHo-60 diet texture as tolerated. Plan discussed with: Other (MALICK Abraham) Critical Care Time(min): 35 RYAN ROMERO MD Jun 03, 2024 22:28
--- NOTE | 2024-06-03 22:33 | DVHPN2 ---
Progress Note - Dictate Date Seen: Jun 03, 2024 Medical Necessity Reason Pt with a Central, PICC or Fol: Yes The following are medically ne: Garcia Catheter Reason for garcia catheter: Strict I&O Subjective Mr. Jeffry Cummins is a 79 years old right-handed gentleman with a history of hypertension, coronary artery disease, heart attack, COPD, he was admitted on 05/22/2024 with a chief complaint of altered mental status, the patient was extubated on 05/29/2024 I have seen and examined the patient, discussed with his nurse. He was doing fine, he was oriented to person, place, good social skills, moves the arms and legs, but voice remain the same Urinalysis, 05/22/2024: WBC: 1, urine leukocyte esterase: Negative ABG, 05/1924: Hypoxia, compensated respiratory acidosis, 05/29/2024: Respiratory acidosis WBC/HB/PLT/MCV, 05/25/2024: 17.9/14.4/211/93.1, 05/29/2024: 10.8/13.9/190/91.6, 06/03/2024: 21.3/316/178/90.7 BUN/CR, 05/29/2024: 28/0.78 HGB A1c, 05/23/24: 6.5 Liver function tests, 05/29/2024: Unremarkable TG/HDL/LDL/HDL, 05/23/2024: 118/112/48/49 TSH, 05/23/2024: 0.71 Chest x-ray, 05/24/2024: Bilateral opacities which may reflect atelectasis.(The endotracheal tube terminates 3.3 cm above the karoline) Chest x-ray, 06/03/2024: Heart appears stable in size. The lungs appear clear without focal airspace opacity, effusion, or pneumothorax. Right IJ catheter tip in the region of the superior vena cava CT head, 05/20/2024: 1. Global brain atrophy and chronic schema changes without evidence of acute intracranial process. 2. Punctate intra-axial and extra-axial calcifications may be due to remote history of TORCH infection. 3. Mild bilateral maxillary and ethmoid sinus disease. vital signs Vital Sign Date Time Temp Pulse Resp B/P (MAP) Pulse Ox O2 Delivery O2 Flow Rate FiO2 06/03/24 22:03 91 14 91 30.0 35 06/03/24 21:47 129/72 06/03/24 20:00 Hi-Flow Heated NC+ 06/03/24 20:00 97.9 97.9 Total Intake and Output 06/02/24 06/02/24 06/03/24 15:00 23:00 07:00 Intake Total 578 ml 328 ml 338 ml Output Total 1900 ml 675 ml Balance 578 ml -1572 ml -337 ml medications Current Medications Medications Dose Ordered Sig/Mindy Route Start Time Stop Time Status Last Admin Dose Admin Morphine Sulfate 2 mg Q30MP PRN IV 05/22/24 09:00 UNV Morphine Sulfate 2 mg Q30M PRN IV 05/22/24 09:30 05/31/24 21:29 2 MG Enoxaparin Sodium 30 mg DAILY SC 05/22/24 10:00 06/03/24 08:08 30 MG Acetaminophen 650 mg Q6HP PRN PO 05/22/24 09:00 05/26/24 13:00 650 MG Nitroglycerin 0.4 mg Q5MINP PRN SL 05/22/24 09:00 UNV Nitroglycerin 0.4 mg Q5MINP PRN SL 05/22/24 09:00 Fentanyl Citrate 250 ml @ 2.5 mls/hr Q24H IV 05/22/24 14:45 05/28/24 02:39 7.5 MLS/HR Aspirin 81 mg DAILY PO 05/23/24 10:00 06/03/24 08:06 81 MG Atorvastatin Calcium 40 mg HS PO 05/22/24 22:00 06/03/24 21:47 40 MG Ipratropium [place] 0.5 mg Q4HR NEB 05/23/24 14:00 06/03/24 22:03 0.5 MG Midazolam HCl 50 ml @ 1 mls/hr Q24H IV 05/23/24 12:15 05/25/24 02:40 4 MLS/HR Methylprednisolone Sodium Succinate 40 mg BID IV 05/24/24 22:00 06/03/24 21:46 40 MG Hydralazine HCl 10 mg Q6H PRN IV 05/26/24 03:15 06/02/24 22:09 10 MG Budesonide 0.5 mg BID NEB 05/26/24 22:00 06/03/24 22:03 0.5 MG Labetalol HCl 20 mg Q4HPRN PRN IV 05/26/24 18:00 06/02/24 06:34 20 MG Diagnostic Test (Pha) 1 strip Q6HR 05/27/24 12:00 06/03/24 17:25 1 STRIP Insulin Human Regular FOLLOW SLIDING SCALE Q6HR SC 05/27/24 12:00 06/03/24 17:25 8 UNITS Dextrose 50 ml UD IV 05/27/24 11:00 Vancomycin HCl 0 ml @ 0 mls/hr UD IV 05/28/24 09:45 Levalbuterol HCl 0.625 mg Q4HR NEB 05/29/24 18:00 06/03/24 22:03 0.625 MG Haloperidol Lactate 5 mg Q8HP PRN IM 05/29/24 19:00 Furosemide 40 mg DAILY IV 05/30/24 10:45 06/03/24 08:07 40 MG Amino Acids 0 ml @ 0 mls/hr PER PHARMACY IV 05/30/24 20:00 Amino Acids/ Electrolytes/ Dextrose 1,000 ml @ 41 mls/hr DAILY@2200 IV 05/30/24 22:00 06/03/24 21:46 41 MLS/HR Carvedilol 12.5 mg Q12HR PO 06/01/24 22:00 06/03/24 21:47 12.5 MG Acetylcysteine 100 mg Q8HR NEB 06/01/24 14:00 06/03/24 22:04 100 MG Pantoprazole Sodium 40 mg DAILY IV 06/01/24 10:00 06/03/24 08:07 40 MG Vancomycin HCl 250 ml @ 200 mls/hr Q18H IV 06/04/24 00:00 objective General: the patient is well developed and nourished. No acute distress. MENTAL STATUS: Subjective SPEECH, LANGUAGE, HIGHER CORTICAL FUNCTION: No aphasia or dysarthria CRANIAL NERVES: Pupils are equal, round and reactive. EOMs full and conjugate. Facial sensation intact in all three divisions bilaterally. Mandibular strength intact. Facial muscles symmetrical and strength intact. SENSATION: Sensation to touch and pinprick is normal. MOTOR: Normal tone in the upper and lower extremity. Normal muscle bulk. No fasciculations. No abnormal movements or posturing, muscle power in the arms 5/5, in the leg is 4/5 REFLEXES: Deep tendon reflexes normal and symmetrical. No pathological reflexes. CEREBELLAR/COORDINATION: Deferred GAIT/STATION: deferred laboratory and microbiology Laboratory Tests 06/03/24 04:42 Test 06/03/24 04:42 Range/Units Serum Glucose 215 H 74-106 mg/dL Problem List Altered mental status Hypoxic encephalopathy Metabolic encephalopathy Toxic encephalopathy Acute on chronic respiratory failure Respiratory acidosis Pneumonia Leukocytosis Assessment/Plan Monitoring Supportive treatment Blood culture DCU care Oxygen Stabilize vitals Respiratory support Respiratory treatment IV antibiotics Haldol 5 mg intramuscular Q 8 hours p.r.n. for agitation Breathing treatment DVT prophylax/Lovenox GI prophylax More recommendation per clinical course This medical document was created using an electronic medical record system with [employer] dictation system. Although this document has been carefully reviewed, there may still be some phonetic and typographical errors. These areas are purely typographical due to imperfections of the software programs, and do not reflect any compromise in the patient's medical care. Prognosis poor Dietary Evaluation Review Comments: 1. Recommend 2 g Na CCHO-60 diet as tolearated if Pt is awake, of vent and passes speech eval. 2. Consider TF Glucerna @ 40ml/hr (58g pro 1152 kcal in 24 hrs in FS), if GI accessible, EN is the choice for nutrition support. Add Clinimix 41ml/hr x 24 hrs for the addiitonal protein needs, 3. Consider TPN per pharmacy if NPO > 7 days and EN not the option of nutrition support. Expected Outcomes/Goals: Improved breathing, gradual wt loss. on PO 2 g Na CCHo-60 diet texture as tolerated. Plan discussed with: Other CALEB NORMAN MD Jun 03, 2024 22:33
[2024-06-04] VITALS (40 sets, daily range): BP systolic 108–182; BP diastolic 61–154; PULSE 83–110; RESP 14–42; TEMP 97.2–98.6; O2SAT 89–100
[2024-06-04 05:10] LABS: Basophils # (auto) 0.2 10 ^3/uL (0-0.2); Basophils % (auto) 1.1 % (0.0-2.0); Eosinophils # (auto) 0 10 ^3/uL (0-0.8); Hematocrit 40.6 % (41.0-53.0); Hemoglobin 13.5 g/dL (13.5-17.5); Lymphocytes # (auto) 0.4 10 ^3/uL (0.4-5.4); Lymphocytes % (auto) 1.9 % (10.0-50.0); Mean Corpuscular Hemoglobin 30.5 pg (28.0-32.0); Mean Corpuscular Hgb Conc. 33.3 g/dL (32.0-36.0); Mean Corpuscular Volume 91.4 fL (80.0-100.0); Monocytes # (auto) 0.8 10 ^3/uL (0-1.3); Monocytes % (auto) 3.8 % (0.0-12.0); Neutrophils # (auto) 19.2 10 ^3/uL (1.6-8.6); Neutrophils % (auto) 93.2 % (37.0-80.0); Nucleated Red Blood Cells % 0.1 %; Platelet Count (auto) 162 10^3/uL (140-450); Red Blood Cells 4.44 10^6/uL (4.5-5.90); Red Cell Distribution Width 13.5 % (11.8-14.3); White Blood Cell 20.6 10^3/uL (4.4-10.8)
[2024-06-04 05:28] LABS: Alkaline Phosphatase 61 U/L (46-116); Anion Gap 7 (5-15); BUN/Creatinine Ratio 41.1 (10.0-20.0); Calcium 9.7 mg/dL (8.7-10.4); Chloride 104 mmol/L (98-107); Magnesium 2.4 mg/dL (1.6-2.6); Phosphorus 3.1 mg/dL (2.4-5.1); Potassium 3.6 mmol/L (3.5-5.1)
--- NOTE | 2024-06-04 05:29 | DVH ---
EXAM: XR Chest, 1 View CLINICAL INDICATION: resp failure TECHNIQUE: Frontal view of the chest. COMPARISON: XY CHEST PORTABLE on DOS: 06/03/24, XY CHEST XRAY 1 VIEW on DOS: 05/31/24, XY CHEST BARBARA BLE on DOS: 05/30/24, XY CHEST PORTABLE on DOS: 05/29/24, XY CHEST PORTABLE on DOS: 05/28/24 FINDINGS: LUNGS AND PLEURAL SPACES: Unremarkable. No consolidation. No pneumothorax. HEART: Unremarkable. No cardiomegaly. MEDIASTINUM: Unremarkable. Normal mediastinal contour. BONES/JOINTS: Unremarkable. No acute fracture. TUBES, LINES AND DEVICES: Right internal jugular central venous catheter tip in the superior vena ca va. OTHER FINDINGS: Mild CHF. . IMPRESSION: Mild CHF.
[2024-06-04 05:32] LABS: Alanine Aminotransferase 43 U/L (7-40); Albumin 3.2 g/dL (3.2-4.8); Aspartate Aminotransferase 42 U/L (13-40); Bilirubin, Total 2.3 mg/dL (0.2-1.0); Blood Urea Nitrogen 44 mg/dL (9-23); Carbon Dioxide 35 mmol/L (20-31); Glucose 166 mg/dL (74-106); Sodium 146 mmol/L (136-145); Total Protein 5.2 g/dL (5.7-8.2)
--- NOTE | 2024-06-04 10:08 | DVHPN2 ---
Subjective Patient intubated and sedated. Reviewed: Care Plan, H&P, Labs, Medications Changes from previous H/P or p: No Changes General: Per HPI Eyes: No Pain, No Vision change, No Conjunctivae inflammation, No Eyelid inflammation, No Other, No Redness ENT: No Ear pain, No Ear discharge, No Nose pain, No Nose discharge, No Nose congestion, No Mouth pain, No Mouth swelling, No Throat pain, No Throat swelling, No Other Cardiovascular: No Chest Pain, No Palpitations, No Orthopnea, No Paroxysmal Noc. Dyspnea, No Edema, No Lt Headedness; Other (Chest tightness) Respiratory: No Cough, No Dry; Shortness of breath; No SOB with excertion, No Wheezing, No Hemoptysis, No Pleuritic Pain, No Sputum, No Other Gastrointestinal: No Nausea, No Vomiting, No Abdominal Pain, No Diarrhea, No Constipation, No Melena, No Hematochezia, No Other Genitourinary: No Dysuria, No Frequency, No Incontinence, No Hematuria, No Retention, No Other Musculoskeletal: No other, No neck pain, No shoulder pain, No arm pain, No back pain, No hand pain, No leg pain, No foot pain Skin: No Rash, No Lesions, No Jaundice, No Bruising, No Other Objective Vitals Vital Signs Date Time Temp Pulse Resp B/P (MAP) Pulse Ox O2 Delivery O2 Flow Rate FiO2 06/04/24 09:46 99 20 94 06/04/24 09:44 30.0 30 06/04/24 09:44 Nasal Cannula 06/04/24 08:00 97.2 128/78 (95) 97.2 Intake/Output Intake and Output 06/04/24 07:00 Intake Total 953 ml Output Total 1950 ml Balance -997 ml Intake Oral 10 ml IV Total 943 ml Output Urine Total 1950 ml General Appearance: Alert, Oriented X3, Cooperative, mild distress HEENT: Atraumatic, PERRLA Lungs: Clear to auscultation, Normal air movement, Other (Mechanical ventilation) Cardiovascular: Normal S1, Normal S2 Abdomen: Normal bowel sounds, Soft, No tenderness, No hepatospenomegaly Genitourinary: No Apparent Abnormalities (Aguero catheter) Musculoskeletal: Other (Unable to assess) Skin: Dry, Intact Psych/Mental Status: Other (Unable to assess) Medications Current Medications Medications Dose Ordered Sig/Mindy Route Start Time Stop Time Status Last Admin Dose Admin Morphine Sulfate 2 mg Q30MP PRN IV 05/22/24 09:00 UNV Morphine Sulfate 2 mg Q30M PRN IV 05/22/24 09:30 05/31/24 21:29 2 MG Enoxaparin Sodium 30 mg DAILY SC 05/22/24 10:00 06/03/24 08:08 30 MG Acetaminophen 650 mg Q6HP PRN PO 05/22/24 09:00 05/26/24 13:00 650 MG Nitroglycerin 0.4 mg Q5MINP PRN SL 05/22/24 09:00 UNV Nitroglycerin 0.4 mg Q5MINP PRN SL 05/22/24 09:00 Fentanyl Citrate 250 ml @ 2.5 mls/hr Q24H IV 05/22/24 14:45 05/28/24 02:39 7.5 MLS/HR Aspirin 81 mg DAILY PO 05/23/24 10:00 06/03/24 08:06 81 MG Atorvastatin Calcium 40 mg HS PO 05/22/24 22:00 06/03/24 21:47 40 MG Ipratropium [place] 0.5 mg Q4HR NEB 05/23/24 14:00 06/04/24 09:41 0.5 MG Midazolam HCl 50 ml @ 1 mls/hr Q24H IV 05/23/24 12:15 05/25/24 02:40 4 MLS/HR Methylprednisolone Sodium Succinate 40 mg BID IV 05/24/24 22:00 06/03/24 21:46 40 MG Hydralazine HCl 10 mg Q6H PRN IV 05/26/24 03:15 06/04/24 05:14 10 MG Budesonide 0.5 mg BID NEB 05/26/24 22:00 06/04/24 06:06 0.5 MG Labetalol HCl 20 mg Q4HPRN PRN IV 05/26/24 18:00 06/02/24 06:34 20 MG Diagnostic Test (Pha) 1 strip Q6HR 05/27/24 12:00 06/04/24 05:25 1 STRIP Insulin Human Regular FOLLOW SLIDING SCALE Q6HR SC 05/27/24 12:00 06/04/24 05:26 2 UNITS Dextrose 50 ml UD IV 05/27/24 11:00 Vancomycin HCl 0 ml @ 0 mls/hr UD IV 05/28/24 09:45 Levalbuterol HCl 0.625 mg Q4HR NEB 05/29/24 18:00 06/04/24 09:41 0.625 MG Haloperidol Lactate 5 mg Q8HP PRN IM 05/29/24 19:00 Furosemide 40 mg DAILY IV 05/30/24 10:45 06/03/24 08:07 40 MG Amino Acids 0 ml @ 0 mls/hr PER PHARMACY IV 05/30/24 20:00 Amino Acids/ Electrolytes/ Dextrose 1,000 ml @ 41 mls/hr DAILY@2200 IV 05/30/24 22:00 06/03/24 21:46 41 MLS/HR Carvedilol 12.5 mg Q12HR PO 06/01/24 22:00 06/03/24 21:47 12.5 MG Acetylcysteine 100 mg Q8HR NEB 06/01/24 14:00 06/04/24 06:06 100 MG Pantoprazole Sodium 40 mg DAILY IV 06/01/24 10:00 06/03/24 08:07 40 MG Vancomycin HCl 250 ml @ 200 mls/hr Q18H IV 06/04/24 00:00 Laboratory Results Laboratory Tests 06/04/24 04:49 Chemistry Test 06/04/24 04:49 Albumin 3.2 g/dL (3.2-4.8) Calcium Level 9.7 mg/dL (8.7-10.4) Magnesium Level 2.4 mg/dL (1.6-2.6) Phosphorus Level 3.1 mg/dL (2.4-5.1) Total Protein 5.2 g/dL (5.7-8.2) L LFT Test 06/04/24 04:49 Alanine Aminotransferase (ALT) 43 U/L (7-40) H Alkaline Phosphatase 61 U/L (46-116) Aspartate Amino Transferase (AST) 42 U/L (13-40) H Total Bilirubin 2.3 mg/dL (0.2-1.0) H Urinalysis Test 05/22/24 05:01 Urine Color Light-yellow (Yellow) Urine Clarity Clear (Clear) Urine pH 5.5 (5.0-9.0) Urine Specific [place] 1.011 (1.001-1.035) Urine Protein Trace (Negative) H Urine Ketones Negative (Negative) Urine Blood 1+ /uL (Negative) H Urine Nitrite Negative (Negative) Urine Bilirubin Negative (Negative) Urine Urobilinogen Normal mg/dL (Negative) Urine Leukocyte Esterase Negative /uL (Negative) Urine RBC 2 /hpf (0 - 3) Urine WBC 1 /hpf (0 - 3) Urine Squamous Epithelial Cells None seen /hpf (<5) Urine Bacteria None seen /hpf (None Seen) Urine Glucose Normal mg/dL (Normal) Microbiology Microbiology Date/Time Source Procedure Growth Status 05/26/24 15:50 Bronchial Washings Gram Stain - Final Complete 05/26/24 15:50 Respiratory Culture - Final Staphylococcus aureus Complete 05/24/24 14:28 Nose MRSA Screen - Final Complete 05/22/24 14:50 Blood Blood Culture - Final NO GROWTH AFTER 5 DAYS OF INCUBATION. Complete Labs and/or images reviewed: Labs reviewed by me, Image(s) reviewed by me Assessment/Plan Assessment/Plan Impression: -acute hypoxic respiratory failure mechanical ventilation -COPD with exacerbation -leukocytosis, rule out sepsis -obesity -history of CAD -history of nicotine dependence -NSTEMI type 2 secondary to respiratory failure -acute kidney injury, rule out vasomotor nephropathy -right middle and lower lobe atelectasis -rule out beta-ramon withdrawal Plan: Events: Patient tolerating crush pills with applesauce. We will try to advance diet to pureed. -attempt using Oxymizer, BiPAP 12/5 at nighttime -physical therapy consultation -continue antibiotic therapy with vancomycin -continue q.4 bronchodilators as well as Pulmicort -Continue Clinimix -PUD, DVT prophylaxis -repeat labs, chest x-ray in a.m. Critical care time spent with patient discussing and formulating plan of care: 40 minutes. This does not include time spent performing procedures. This medical document was created using an electronic medical record system with [employer] dictation system. Although this document has been carefully reviewed, there may still be some phonetic and typographical errors. These areas are purely typographical due to imperfections of the software programs, and do not reflect any compromise in the patient's medical care. Plan discussed with: Patient, Other (Rn) My Orders Orders - YOLI KAY NP Procedure Category Date Status Time Clinimix Per Pharmacy [facility] 1/26/25 In Process 22:00 Bipap/Cpap For Sleep RT 06/04/24 Verified Apnea 21:00 Date of Service: Jun 04, 2024 Billing Provider: YOLI KAY NP Common Visit Codes: [id number] CARE 30-74 MIN YOLI KAY NP Jun 04, 2024 10:08
--- NOTE | 2024-06-04 10:23 | DVHPN2 ---
Progress Note - Dictate Date Seen: Jun 04, 2024 Medical Necessity Reason Pt with a Central, PICC or Fol: Yes The following are medically ne: Garcia Catheter Reason for garcia catheter: Strict I&O Subjective Mr. Jeffry Cummins is a 79 years old right-handed gentleman with a history of hypertension, coronary artery disease, heart attack, COPD, he was admitted on 05/22/2024 with a chief complaint of altered mental status, the patient was extubated on 05/29/2024 I have seen and examined the patient, discussed with his nurse, Respiratory therapist. He is doing fine, he is oriented to person, place, she knows year and the month, good social skills, moves the arms and legs I do not see change/improvement in her voice Urinalysis, 05/22/2024: WBC: 1, urine leukocyte esterase: Negative ABG, 05/1924: Hypoxia, compensated respiratory acidosis, 05/29/2024: Respiratory acidosis WBC/HB/PLT/MCV, 05/25/2024: 17.9/14.4/211/93.1, 05/29/2024: 10.8/13.9/190/91.6, 06/03/2024: 21.3/316/178/90.7 BUN/CR, 05/29/2024: 28/0.78 HGB A1c, 05/23/24: 6.5 Liver function tests, 05/29/2024: Unremarkable TG/HDL/LDL/HDL, 05/23/2024: 118/112/48/49 TSH, 05/23/2024: 0.71 Chest x-ray, 05/24/2024: Bilateral opacities which may reflect atelectasis.(The endotracheal tube terminates 3.3 cm above the karoline) Chest x-ray, 06/03/2024: Heart appears stable in size. The lungs appear clear without focal airspace opacity, effusion, or pneumothorax. Right IJ catheter tip in the region of the superior vena cava CT head, 05/20/2024: 1. Global brain atrophy and chronic schema changes without evidence of acute intracranial process. 2. Punctate intra-axial and extra-axial calcifications may be due to remote history of TORCH infection. 3. Mild bilateral maxillary and ethmoid sinus disease. vital signs Vital Sign Date Time Temp Pulse Resp B/P (MAP) Pulse Ox O2 Delivery O2 Flow Rate FiO2 06/04/24 10:20 98 Oxymizer 5 N/A 06/04/24 09:46 99 20 06/04/24 08:00 97.2 128/78 (95) 97.2 Total Intake and Output 06/03/24 06/03/24 06/04/24 15:00 23:00 07:00 Intake Total 328 ml 338 ml 287 ml Output Total 1400 ml 550 ml Balance 328 ml -1062 ml -263 ml medications Current Medications Medications Dose Ordered Sig/Mindy Route Start Time Stop Time Status Last Admin Dose Admin Morphine Sulfate 2 mg Q30MP PRN IV 05/22/24 09:00 UNV Morphine Sulfate 2 mg Q30M PRN IV 05/22/24 09:30 05/31/24 21:29 2 MG Enoxaparin Sodium 30 mg DAILY SC 05/22/24 10:00 06/03/24 08:08 30 MG Acetaminophen 650 mg Q6HP PRN PO 05/22/24 09:00 05/26/24 13:00 650 MG Nitroglycerin 0.4 mg Q5MINP PRN SL 05/22/24 09:00 UNV Nitroglycerin 0.4 mg Q5MINP PRN SL 05/22/24 09:00 Fentanyl Citrate 250 ml @ 2.5 mls/hr Q24H IV 05/22/24 14:45 05/28/24 02:39 7.5 MLS/HR Aspirin 81 mg DAILY PO 05/23/24 10:00 06/03/24 08:06 81 MG Atorvastatin Calcium 40 mg HS PO 05/22/24 22:00 06/03/24 21:47 40 MG Ipratropium [place] 0.5 mg Q4HR NEB 05/23/24 14:00 06/04/24 09:41 0.5 MG Midazolam HCl 50 ml @ 1 mls/hr Q24H IV 05/23/24 12:15 05/25/24 02:40 4 MLS/HR Methylprednisolone Sodium Succinate 40 mg BID IV 05/24/24 22:00 06/03/24 21:46 40 MG Hydralazine HCl 10 mg Q6H PRN IV 05/26/24 03:15 06/04/24 05:14 10 MG Budesonide 0.5 mg BID NEB 05/26/24 22:00 06/04/24 06:06 0.5 MG Labetalol HCl 20 mg Q4HPRN PRN IV 05/26/24 18:00 06/02/24 06:34 20 MG Diagnostic Test (Pha) 1 strip Q6HR 05/27/24 12:00 06/04/24 05:25 1 STRIP Insulin Human Regular FOLLOW SLIDING SCALE Q6HR SC 05/27/24 12:00 06/04/24 05:26 2 UNITS Dextrose 50 ml UD IV 05/27/24 11:00 Vancomycin HCl 0 ml @ 0 mls/hr UD IV 05/28/24 09:45 Levalbuterol HCl 0.625 mg Q4HR NEB 05/29/24 18:00 06/04/24 09:41 0.625 MG Haloperidol Lactate 5 mg Q8HP PRN IM 05/29/24 19:00 Furosemide 40 mg DAILY IV 05/30/24 10:45 06/03/24 08:07 40 MG Amino Acids 0 ml @ 0 mls/hr PER PHARMACY IV 05/30/24 20:00 Amino Acids/ Electrolytes/ Dextrose 1,000 ml @ 41 mls/hr DAILY@2200 IV 05/30/24 22:00 06/03/24 21:46 41 MLS/HR Carvedilol 12.5 mg Q12HR PO 06/01/24 22:00 06/03/24 21:47 12.5 MG Acetylcysteine 100 mg Q8HR NEB 06/01/24 14:00 06/04/24 06:06 100 MG Pantoprazole Sodium 40 mg DAILY IV 06/01/24 10:00 06/03/24 08:07 40 MG Vancomycin HCl 250 ml @ 200 mls/hr Q18H IV 06/04/24 00:00 objective General: the patient is well developed and nourished. No acute distress. MENTAL STATUS: Subjective SPEECH, LANGUAGE, HIGHER CORTICAL FUNCTION: No aphasia or dysarthria CRANIAL NERVES: Pupils are equal, round and reactive. EOMs full and conjugate. Facial sensation intact in all three divisions bilaterally. Mandibular strength intact. Facial muscles symmetrical and strength intact. SENSATION: Sensation to touch and pinprick is normal. MOTOR: Normal tone in the upper and lower extremity. Normal muscle bulk. No fasciculations. No abnormal movements or posturing, muscle power in the arms 5/5, in the leg is 4/5 REFLEXES: Deep tendon reflexes normal and symmetrical. No pathological reflexes. CEREBELLAR/COORDINATION: Deferred GAIT/STATION: deferred laboratory and microbiology Laboratory Tests 06/04/24 04:49 Test 06/04/24 04:49 Range/Units Serum Glucose 166 H 74-106 mg/dL Problem List Altered mental status Hypoxic encephalopathy Metabolic encephalopathy Toxic encephalopathy Acute on chronic respiratory failure Respiratory acidosis Pneumonia Leukocytosis Dysarthria secondary to intubation Assessment/Plan Monitoring Supportive treatment Blood culture DCU care Oxygen Stabilize vitals Respiratory support Respiratory treatment IV antibiotics Haldol 5 mg intramuscular Q 8 hours p.r.n. for agitation Breathing treatment DVT prophylax/Lovenox GI prophylax More recommendation per clinical course This medical document was created using an electronic medical record system with [employer] dictation system. Although this document has been carefully reviewed, there may still be some phonetic and typographical errors. These areas are purely typographical due to imperfections of the software programs, and do not reflect any compromise in the patient's medical care. Prognosis poor Dietary Evaluation Review Comments: 1. Recommend 2 g Na CCHO-60 diet as tolearated if Pt is awake, of vent and passes speech eval. 2. Consider TF Glucerna @ 40ml/hr (58g pro 1152 kcal in 24 hrs in FS), if GI accessible, EN is the choice for nutrition support. Add Clinimix 41ml/hr x 24 hrs for the addiitonal protein needs, 3. Consider TPN per pharmacy if NPO > 7 days and EN not the option of nutrition support. Expected Outcomes/Goals: Improved breathing, gradual wt loss. on PO 2 g Na CCHo-60 diet texture as tolerated. Plan discussed with: Other CALEB NORMAN MD Jun 04, 2024 10:23
--- NOTE | 2024-06-04 22:36 | DVHPN2 ---
Progress Note - Dictate Date Seen: Jun 04, 2024 Medical Necessity Reason Pt with a Central, PICC or Fol: Yes The following are medically ne: Garcia Catheter Reason for garcia catheter: Strict I&O Subjective Patient seen and examined at bedside. Remains on supplemental oxygen Overnight events reviewed. vital signs Vital Sign Date Time Temp Pulse Resp B/P (MAP) Pulse Ox O2 Delivery O2 Flow Rate FiO2 06/04/24 21:56 93 152/93 06/04/24 18:31 20 100 06/04/24 18:21 Oxymizer 5.0 06/04/24 18:21 N/A 06/04/24 16:00 98.4 98.4 Total Intake and Output 06/03/24 06/03/24 06/04/24 15:00 23:00 07:00 Intake Total 328 ml 338 ml 328 ml Output Total 1400 ml 550 ml Balance 328 ml -1062 ml -222 ml medications Current Medications Medications Dose Ordered Sig/Mindy Route Start Time Stop Time Status Last Admin Dose Admin Morphine Sulfate 2 mg Q30MP PRN IV 05/22/24 09:00 UNV Morphine Sulfate 2 mg Q30M PRN IV 05/22/24 09:30 05/31/24 21:29 2 MG Enoxaparin Sodium 30 mg DAILY SC 05/22/24 10:00 06/04/24 10:41 30 MG Acetaminophen 650 mg Q6HP PRN PO 05/22/24 09:00 05/26/24 13:00 650 MG Nitroglycerin 0.4 mg Q5MINP PRN SL 05/22/24 09:00 UNV Nitroglycerin 0.4 mg Q5MINP PRN SL 05/22/24 09:00 Fentanyl Citrate 250 ml @ 2.5 mls/hr Q24H IV 05/22/24 14:45 05/28/24 02:39 7.5 MLS/HR Aspirin 81 mg DAILY PO 05/23/24 10:00 06/04/24 10:40 81 MG Atorvastatin Calcium 40 mg HS PO 05/22/24 22:00 06/04/24 21:57 40 MG Ipratropium [place] 0.5 mg Q4HR NEB 05/23/24 14:00 06/04/24 18:21 0.5 MG Midazolam HCl 50 ml @ 1 mls/hr Q24H IV 05/23/24 12:15 05/25/24 02:40 4 MLS/HR Methylprednisolone Sodium Succinate 40 mg BID IV 05/24/24 22:00 06/04/24 21:56 40 MG Hydralazine HCl 10 mg Q6H PRN IV 05/26/24 03:15 06/04/24 05:14 10 MG Budesonide 0.5 mg BID NEB 05/26/24 22:00 06/04/24 18:21 0.5 MG Labetalol HCl 20 mg Q4HPRN PRN IV 05/26/24 18:00 06/02/24 06:34 20 MG Diagnostic Test (Pha) 1 strip Q6HR 05/27/24 12:00 06/04/24 18:14 1 STRIP Insulin Human Regular FOLLOW SLIDING SCALE Q6HR SC 05/27/24 12:00 06/04/24 18:17 12 UNITS Dextrose 50 ml UD IV 05/27/24 11:00 Vancomycin HCl 0 ml @ 0 mls/hr UD IV 05/28/24 09:45 Levalbuterol HCl 0.625 mg Q4HR NEB 05/29/24 18:00 06/04/24 18:22 0.625 MG Haloperidol Lactate 5 mg Q8HP PRN IM 05/29/24 19:00 Furosemide 40 mg DAILY IV 05/30/24 10:45 06/04/24 10:39 40 MG Amino Acids 0 ml @ 0 mls/hr PER PHARMACY IV 05/30/24 20:00 Amino Acids/ Electrolytes/ Dextrose 1,000 ml @ 41 mls/hr DAILY@2200 IV 05/30/24 22:00 06/04/24 21:56 41 MLS/HR Carvedilol 12.5 mg Q12HR PO 06/01/24 22:00 06/04/24 21:56 12.5 MG Acetylcysteine 100 mg Q8HR NEB 06/01/24 14:00 06/04/24 13:57 100 MG Pantoprazole Sodium 40 mg DAILY IV 06/01/24 10:00 06/04/24 10:39 40 MG Vancomycin HCl 250 ml @ 200 mls/hr Q18H IV 06/04/24 00:00 06/04/24 18:07 200 MLS/HR objective Gen.: Patient lying in bed in no apparent distress. On supplemental oxygen. Head: Normocephalic, atraumatic. Eyes: EOMI/PERRLA. Ears: Normal hearing. Normal anatomy. Neck/trachea: Trachea midline, supple. Nose: Normal external anatomy. Mouth: Moist mucous membranes. Chest: Decreased air entry bilaterally. No wheezing or rhonchi. Cardiovascular: Positive S1, positive S2. Regular rate and rhythm. Abdomen: Positive bowel sounds in all 4 quadrants. Soft, non-tender, non- distended. : Deferred. Rectal: Deferred. Skin: Warm, dry. Intact. Extremities: 2+ radial pulses bilaterally. No lower extremity edema. Neuro: Awake, alert, oriented x3. No gross motor or sensory deficits. Cranial nerves II through XII intact. Gait not assessed. laboratory and microbiology Laboratory Tests 06/04/24 04:49 Test 06/04/24 04:49 Range/Units Serum Glucose 166 H 74-106 mg/dL Assessment/Plan Impression: Acute hypoxic respiratory failure Acute hypercarbic respiratory failure COPD exacerbation Hx of nicotine dependence Morbid obesity, BMI 40 Atelectasis Events: Tapered off HFO2, currently on 5 LPM Oxymizer Improved O2 requirements Continue to taper as tolerated Continue bronchodilators. Continue antibiotics. Continue steroids Clinimix for nutritional support Passed swallow eval. HOB elevation Aspiration precautions. Diurese as tolerated w/ Lasix Monitor renal function Monitor electrolytes. Supplement as necessary. S/p therapeutic bronchoscopy with LLL BAL on 05/26/24 - cleared mucous plugging from L6-L10 and R6-R10 Labs and imaging reviewed. Rest of plan as noted below. Plan: s/p extubation on 05/29/24 Continue supplemental oxygen Titrate to keep sats above 92% Off pressors, hemodynamically stable Continue bronchodilators. Continue antibiotics. Continue steroids F/u cultures. Pressors if necessary for hemodynamic support Titrate to keep mean arterial pressure greater than 65 mmHg. Monitor renal function Monitor electrolytes. Supplement as necessary. Monitor ins and outs. Maintain euvolemia. Morbid Obesity - complicates all care GI prophylaxis. DVT prophylaxis. Prognosis: Poor given patient's multiple co-morbidities. Condition: Critical Rest of plan per hospitalist and other consultants. A total of 35 minutes of critical care time was spent reviewing the patient record, examining the patient, making a diagnostic and therapeutic plan, discussing this plan with the medical personnel, following up on diagnostic studies and following the patient for clinical stability excluding any and all procedures. At least 50% of this time was spent in direct, [id number] contact. Thank you, FEATHER CURLING MACHINE OPERATOR Cuca, for allowing me to participate in this patient's care. Further recommendations will depend on the patient's clinical course. Please do not hesitate to contact me if you have any questions or concerns. This medical document was created using an electronic medical record system with [employer] dictation system. Although these documentations are being carefully reviewed, there may still be some phonetic and typographical changes. The errors are purely typographical, due to imperfection on the software program, and do not reflect any compromise in the patient's medical care. Dietary Evaluation Review Comments: 1. Recommend 2 g Na CCHO-60 diet as tolearated if Pt is awake, of vent and passes speech eval. 2. Consider TF Glucerna @ 40ml/hr (58g pro 1152 kcal in 24 hrs in FS), if GI accessible, EN is the choice for nutrition support. Add Clinimix 41ml/hr x 24 hrs for the addiitonal protein needs, 3. Consider TPN per pharmacy if NPO > 7 days and EN not the option of nutrition support. Expected Outcomes/Goals: Improved breathing, gradual wt loss. on PO 2 g Na CCHo-60 diet texture as tolerated. Plan discussed with: Other (MALICK Espinoza) Critical Care Time(min): 35 RYAN ROMERO MD Jun 04, 2024 22:36
[2024-06-05] VITALS (32 sets, daily range): BP systolic 103–166; BP diastolic 50–97; PULSE 74–110; RESP 13–32; TEMP 97.2–98.3; O2SAT 89–100
[2024-06-05 05:40] LABS: Hematocrit 39.7 % (41.0-53.0); Hemoglobin 13.3 g/dL (13.5-17.5); Mean Corpuscular Hemoglobin 30.4 pg (28.0-32.0); Mean Corpuscular Hgb Conc. 33.4 g/dL (32.0-36.0); Mean Corpuscular Volume 91.1 fL (80.0-100.0); Platelet Count (auto) 139 10^3/uL (140-450); Red Blood Cells 4.36 10^6/uL (4.5-5.90); White Blood Cell 20.7 10^3/uL (4.4-10.8)
[2024-06-05 05:48] LABS: Band Neutrophils % (manual) 0; Basophils % (manual) 0 (0.0-2.0); Blast Cells 0; Eosinophils % (manual) 0 (0-7); Metamyelocytes % 0; Myelocytes % 0; Promyelocytes % 0; Reactive Lymphocytes 0
[2024-06-05 06:08] LABS: Alkaline Phosphatase 69 U/L (46-116); Anion Gap 3 (5-15); BUN/Creatinine Ratio 38.9 (10.0-20.0); Calcium 9.2 mg/dL (8.7-10.4); Chloride 102 mmol/L (98-107); Magnesium 2.4 mg/dL (1.6-2.6); Potassium 3.7 mmol/L (3.5-5.1); Sodium 143 mmol/L (136-145); Triglycerides 127 mg/dL (< 150)
[2024-06-05 06:09] LABS: Albumin 3.3 g/dL (3.2-4.8); Phosphorus 3.6 mg/dL (2.4-5.1)
[2024-06-05 06:12] LABS: Alanine Aminotransferase 46 U/L (7-40); Aspartate Aminotransferase 43 U/L (13-40); Bilirubin, Total 2.6 mg/dL (0.2-1.0); Blood Urea Nitrogen 42 mg/dL (9-23); Carbon Dioxide 38 mmol/L (20-31); Glucose 197 mg/dL (74-106); Total Protein 5.1 g/dL (5.7-8.2)
[2024-06-05 06:26] LABS: Lymphocytes % (manual) 2 (10.0-50.0); Monocytes % (manual) 1 (0-12)
[2024-06-05 06:27] LABS: Platelet Estimate Decreased; RBC Morphology Normal
--- NOTE | 2024-06-05 09:44 | DVHPN2 ---
Subjective Patient intubated and sedated. Reviewed: Care Plan, H&P, Labs, Medications Changes from previous H/P or p: No Changes General: Per HPI Eyes: No Pain, No Vision change, No Conjunctivae inflammation, No Eyelid inflammation, No Other, No Redness ENT: No Ear pain, No Ear discharge, No Nose pain, No Nose discharge, No Nose congestion, No Mouth pain, No Mouth swelling, No Throat pain, No Throat swelling, No Other Cardiovascular: No Chest Pain, No Palpitations, No Orthopnea, No Paroxysmal Noc. Dyspnea, No Edema, No Lt Headedness; Other (Chest tightness) Respiratory: No Cough, No Dry; Shortness of breath; No SOB with excertion, No Wheezing, No Hemoptysis, No Pleuritic Pain, No Sputum, No Other Gastrointestinal: No Nausea, No Vomiting, No Abdominal Pain, No Diarrhea, No Constipation, No Melena, No Hematochezia, No Other Genitourinary: No Dysuria, No Frequency, No Incontinence, No Hematuria, No Retention, No Other Musculoskeletal: No other, No neck pain, No shoulder pain, No arm pain, No back pain, No hand pain, No leg pain, No foot pain Skin: No Rash, No Lesions, No Jaundice, No Bruising, No Other Objective Vitals Vital Signs Date Time Temp Pulse Resp B/P (MAP) Pulse Ox O2 Delivery O2 Flow Rate FiO2 06/05/24 09:34 85 24 93 06/05/24 08:00 97.2 166/76 (106) 97.2 06/05/24 06:20 Oxymizer 5.0 06/05/24 06:20 46 46 Intake/Output Intake and Output 06/05/24 07:00 Intake Total 1783 ml Output Total 2100 ml Balance -317 ml Intake Oral 840 ml IV Total 943 ml Output Urine Total 2100 ml General Appearance: Alert, Oriented X3, Cooperative, mild distress HEENT: Atraumatic, PERRLA Lungs: Clear to auscultation, Normal air movement, Other (Mechanical ventilation) Cardiovascular: Normal S1, Normal S2 Abdomen: Normal bowel sounds, Soft, No tenderness, No hepatospenomegaly Genitourinary: No Apparent Abnormalities (Aguero catheter) Musculoskeletal: Other (Unable to assess) Skin: Dry, Intact Psych/Mental Status: Other (Unable to assess) Medications Current Medications Medications Dose Ordered Sig/Mindy Route Start Time Stop Time Status Last Admin Dose Admin Morphine Sulfate 2 mg Q30MP PRN IV 05/22/24 09:00 UNV Morphine Sulfate 2 mg Q30M PRN IV 05/22/24 09:30 05/31/24 21:29 2 MG Enoxaparin Sodium 30 mg DAILY SC 05/22/24 10:00 06/04/24 10:41 30 MG Acetaminophen 650 mg Q6HP PRN PO 05/22/24 09:00 05/26/24 13:00 650 MG Nitroglycerin 0.4 mg Q5MINP PRN SL 05/22/24 09:00 UNV Nitroglycerin 0.4 mg Q5MINP PRN SL 05/22/24 09:00 Fentanyl Citrate 250 ml @ 2.5 mls/hr Q24H IV 05/22/24 14:45 05/28/24 02:39 7.5 MLS/HR Aspirin 81 mg DAILY PO 05/23/24 10:00 06/04/24 10:40 81 MG Atorvastatin Calcium 40 mg HS PO 05/22/24 22:00 06/04/24 21:57 40 MG Ipratropium [place] 0.5 mg Q4HR NEB 05/23/24 14:00 06/05/24 09:34 0.5 MG Midazolam HCl 50 ml @ 1 mls/hr Q24H IV 05/23/24 12:15 05/25/24 02:40 4 MLS/HR Methylprednisolone Sodium Succinate 40 mg BID IV 05/24/24 22:00 06/04/24 21:56 40 MG Hydralazine HCl 10 mg Q6H PRN IV 05/26/24 03:15 06/04/24 05:14 10 MG Budesonide 0.5 mg BID NEB 05/26/24 22:00 06/05/24 06:20 0.5 MG Labetalol HCl 20 mg Q4HPRN PRN IV 05/26/24 18:00 06/02/24 06:34 20 MG Diagnostic Test (Pha) 1 strip Q6HR 05/27/24 12:00 06/05/24 05:31 1 STRIP Insulin Human Regular FOLLOW SLIDING SCALE Q6HR SC 05/27/24 12:00 06/05/24 05:32 4 UNITS Dextrose 50 ml UD IV 05/27/24 11:00 Vancomycin HCl 0 ml @ 0 mls/hr UD IV 05/28/24 09:45 Levalbuterol HCl 0.625 mg Q4HR NEB 05/29/24 18:00 06/05/24 09:34 0.625 MG Haloperidol Lactate 5 mg Q8HP PRN IM 05/29/24 19:00 Furosemide 40 mg DAILY IV 05/30/24 10:45 06/04/24 10:39 40 MG Amino Acids 0 ml @ 0 mls/hr PER PHARMACY IV 05/30/24 20:00 Amino Acids/ Electrolytes/ Dextrose 1,000 ml @ 41 mls/hr DAILY@2200 IV 05/30/24 22:00 06/04/24 21:56 41 MLS/HR Carvedilol 12.5 mg Q12HR PO 06/01/24 22:00 06/04/24 21:56 12.5 MG Acetylcysteine 100 mg Q8HR NEB 06/01/24 14:00 06/05/24 06:20 100 MG Pantoprazole Sodium 40 mg DAILY IV 06/01/24 10:00 06/04/24 10:39 40 MG Vancomycin HCl 250 ml @ 200 mls/hr Q18H IV 06/04/24 00:00 06/04/24 18:07 200 MLS/HR Laboratory Results Laboratory Tests 06/05/24 05:08 Chemistry Test 06/05/24 05:08 Albumin 3.3 g/dL (3.2-4.8) Calcium Level 9.2 mg/dL (8.7-10.4) Magnesium Level 2.4 mg/dL (1.6-2.6) Phosphorus Level 3.6 mg/dL (2.4-5.1) Total Protein 5.1 g/dL (5.7-8.2) L Lipid panel Test 06/05/24 05:08 Triglycerides Level 127 mg/dL (< 150) LFT Test 06/05/24 05:08 Alanine Aminotransferase (ALT) 46 U/L (7-40) H Alkaline Phosphatase 69 U/L (46-116) Aspartate Amino Transferase (AST) 43 U/L (13-40) H Total Bilirubin 2.6 mg/dL (0.2-1.0) H Urinalysis Test 05/22/24 05:01 Urine Color Light-yellow (Yellow) Urine Clarity Clear (Clear) Urine pH 5.5 (5.0-9.0) Urine Specific [place] 1.011 (1.001-1.035) Urine Protein Trace (Negative) H Urine Ketones Negative (Negative) Urine Blood 1+ /uL (Negative) H Urine Nitrite Negative (Negative) Urine Bilirubin Negative (Negative) Urine Urobilinogen Normal mg/dL (Negative) Urine Leukocyte Esterase Negative /uL (Negative) Urine RBC 2 /hpf (0 - 3) Urine WBC 1 /hpf (0 - 3) Urine Squamous Epithelial Cells None seen /hpf (<5) Urine Bacteria None seen /hpf (None Seen) Urine Glucose Normal mg/dL (Normal) Microbiology Microbiology Date/Time Source Procedure Growth Status 06/03/24 23:11 Blood Blood Culture - Preliminary NO GROWTH AFTER 24 HOURS OF INCUBATION. Resulted 05/26/24 15:50 Bronchial Washings Gram Stain - Final Complete 05/26/24 15:50 Respiratory Culture - Final Staphylococcus aureus Complete 05/24/24 14:28 Nose MRSA Screen - Final Complete Labs and/or images reviewed: Labs reviewed by me, Image(s) reviewed by me Assessment/Plan Assessment/Plan Impression: -acute hypoxic respiratory failure mechanical ventilation -COPD with exacerbation -leukocytosis, rule out sepsis -obesity -history of CAD -history of nicotine dependence -NSTEMI type 2 secondary to respiratory failure -acute kidney injury, rule out vasomotor nephropathy -right middle and lower lobe atelectasis -rule out beta-ramon withdrawal Plan: Events: No events overnight. O2 supplementation which they are going to has improved with patient now on Oxymizer at 5 liters/minute. -attempt using Oxymizer, BiPAP 12/5 at nighttime -physical therapy consultation -continue antibiotic therapy with vancomycin -continue q.4 bronchodilators as well as Pulmicort -Continue Clinimix -PUD, DVT prophylaxis -transfer to telemetry unit -social service consultation for SNF placement -repeat labs, chest x-ray in a.m. Total time spent with patient discussing and formulating plan of care: 35 minutes. This medical document was created using an electronic medical record system with [employer] dictation system. Although this document has been carefully reviewed, there may still be some phonetic and typographical errors. These areas are purely typographical due to imperfections of the software programs, and do not reflect any compromise in the patient's medical care. Plan discussed with: Patient, Other (RN) My Orders Orders - YOLI KAY NP Procedure Category Date Status Time Bipap/Cpap For Sleep RT 06/04/24 Logged Apnea 21:00 Pureed DIET 06/04/24 Transmitted Lunch Clinimix Per Pharmacy [facility] 06/04/24 In Process 22:00 Vancomycin Per [facility] 06/04/24 In Process Pharmacy [facility] 11:38 Transfer Orders XFER 06/05/24 Verified 09:38 Communication Order ORDERS 06/05/24 Verified 09:38 Continuous Pulse [facility]LOS 06/05/24 Verified Oximetry 09:38 * Bilingual [employer] CONS 06/05/24 Verified Consult Date of Service: Jun 05, 2024 Billing Provider: YOLI KAY NP Common Visit Codes: [id number] INP/OBS CARE(HIGH) YOLI KAY NP Jun 05, 2024 09:44
--- NOTE | 2024-06-05 10:28 | DVHPN2 ---
Progress Note - Dictate Date Seen: Jun 05, 2024 Medical Necessity Reason Pt with a Central, PICC or Fol: Yes The following are medically ne: Garcia Catheter Reason for garcia catheter: Strict I&O Subjective Mr. Jeffry Cummins is a 79 years old right-handed gentleman with a history of hypertension, coronary artery disease, heart attack, COPD, he was admitted on 05/22/2024 with a chief complaint of altered mental status, the patient was extubated on 05/29/2024 I have seen and examined the patient, discussed with his nurse. He is doing fine, he is oriented to person, place, he knows year and the month, good social skills, moves the arms and legs The voice is slightly better today Urinalysis, 05/22/2024: WBC: 1, urine leukocyte esterase: Negative ABG, 05/1924: Hypoxia, compensated respiratory acidosis, 05/29/2024: Respiratory acidosis WBC/HB/PLT/MCV, 05/25/2024: 17.9/14.4/211/93.1, 05/29/2024: 10.8/13.9/190/91.6, 06/03/2024: 21.3/316/178/90.7 BUN/CR, 05/29/2024: 28/0.78 HGB A1c, 05/23/24: 6.5 Liver function tests, 05/29/2024: Unremarkable TG/HDL/LDL/HDL, 05/23/2024: 118/112/48/49 TSH, 05/23/2024: 0.71 Chest x-ray, 05/24/2024: Bilateral opacities which may reflect atelectasis.(The endotracheal tube terminates 3.3 cm above the karoline) Chest x-ray, 06/03/2024: Heart appears stable in size. The lungs appear clear without focal airspace opacity, effusion, or pneumothorax. Right IJ catheter tip in the region of the superior vena cava CT head, 05/20/2024: 1. Global brain atrophy and chronic schema changes without evidence of acute intracranial process. 2. Punctate intra-axial and extra-axial calcifications may be due to remote history of TORCH infection. 3. Mild bilateral maxillary and ethmoid sinus disease. vital signs Vital Sign Date Time Temp Pulse Resp B/P (MAP) Pulse Ox O2 Delivery O2 Flow Rate FiO2 06/05/24 09:44 94 18 98 06/05/24 08:00 97.2 166/76 (106) 97.2 06/05/24 06:20 Oxymizer 5.0 06/05/24 06:20 46 46 Total Intake and Output 06/04/24 06/04/24 06/05/24 15:00 23:00 07:00 Intake Total 328 ml 478 ml 977 ml Output Total 1600 ml 500 ml Balance 328 ml -1122 ml 477 ml medications Current Medications Medications Dose Ordered Sig/Mindy Route Start Time Stop Time Status Last Admin Dose Admin Morphine Sulfate 2 mg Q30MP PRN IV 05/22/24 09:00 UNV Morphine Sulfate 2 mg Q30M PRN IV 05/22/24 09:30 05/31/24 21:29 2 MG Enoxaparin Sodium 30 mg DAILY SC 05/22/24 10:00 06/04/24 10:41 30 MG Acetaminophen 650 mg Q6HP PRN PO 05/22/24 09:00 05/26/24 13:00 650 MG Nitroglycerin 0.4 mg Q5MINP PRN SL 05/22/24 09:00 UNV Nitroglycerin 0.4 mg Q5MINP PRN SL 05/22/24 09:00 Fentanyl Citrate 250 ml @ 2.5 mls/hr Q24H IV 05/22/24 14:45 05/28/24 02:39 7.5 MLS/HR Aspirin 81 mg DAILY PO 05/23/24 10:00 06/04/24 10:40 81 MG Atorvastatin Calcium 40 mg HS PO 05/22/24 22:00 06/04/24 21:57 40 MG Ipratropium [place] 0.5 mg Q4HR NEB 05/23/24 14:00 06/05/24 09:34 0.5 MG Midazolam HCl 50 ml @ 1 mls/hr Q24H IV 05/23/24 12:15 05/25/24 02:40 4 MLS/HR Methylprednisolone Sodium Succinate 40 mg BID IV 05/24/24 22:00 06/04/24 21:56 40 MG Hydralazine HCl 10 mg Q6H PRN IV 05/26/24 03:15 06/04/24 05:14 10 MG Budesonide 0.5 mg BID NEB 05/26/24 22:00 06/05/24 06:20 0.5 MG Labetalol HCl 20 mg Q4HPRN PRN IV 05/26/24 18:00 06/02/24 06:34 20 MG Diagnostic Test (Pha) 1 strip Q6HR 05/27/24 12:00 06/05/24 05:31 1 STRIP Insulin Human Regular FOLLOW SLIDING SCALE Q6HR SC 05/27/24 12:00 06/05/24 05:32 4 UNITS Dextrose 50 ml UD IV 05/27/24 11:00 Vancomycin HCl 0 ml @ 0 mls/hr UD IV 05/28/24 09:45 Levalbuterol HCl 0.625 mg Q4HR NEB 05/29/24 18:00 06/05/24 09:34 0.625 MG Haloperidol Lactate 5 mg Q8HP PRN IM 05/29/24 19:00 Furosemide 40 mg DAILY IV 05/30/24 10:45 06/04/24 10:39 40 MG Amino Acids 0 ml @ 0 mls/hr PER PHARMACY IV 05/30/24 20:00 Amino Acids/ Electrolytes/ Dextrose 1,000 ml @ 41 mls/hr DAILY@2200 IV 05/30/24 22:00 06/04/24 21:56 41 MLS/HR Carvedilol 12.5 mg Q12HR PO 06/01/24 22:00 06/04/24 21:56 12.5 MG Acetylcysteine 100 mg Q8HR NEB 06/01/24 14:00 06/05/24 06:20 100 MG Pantoprazole Sodium 40 mg DAILY IV 06/01/24 10:00 06/04/24 10:39 40 MG Vancomycin HCl 250 ml @ 200 mls/hr Q18H IV 06/04/24 00:00 06/04/24 18:07 200 MLS/HR objective General: the patient is well developed and nourished. No acute distress. MENTAL STATUS: Subjective SPEECH, LANGUAGE, HIGHER CORTICAL FUNCTION: No aphasia or dysarthria CRANIAL NERVES: Pupils are equal, round and reactive. EOMs full and conjugate. Facial sensation intact in all three divisions bilaterally. Mandibular strength intact. Facial muscles symmetrical and strength intact. SENSATION: Sensation to touch and pinprick is normal. MOTOR: Normal tone in the upper and lower extremity. Normal muscle bulk. No fasciculations. No abnormal movements or posturing, muscle power in the arms 5/5, in the leg is 4/5 REFLEXES: Deep tendon reflexes normal and symmetrical. No pathological reflexes. CEREBELLAR/COORDINATION: Deferred GAIT/STATION: deferred laboratory and microbiology Laboratory Tests 06/05/24 05:08 Test 06/05/24 05:08 Range/Units Serum Glucose 197 H 74-106 mg/dL Problem List Altered mental status Hypoxic encephalopathy Metabolic encephalopathy Toxic encephalopathy Acute on chronic respiratory failure Respiratory acidosis Pneumonia Leukocytosis Dysarthria secondary to intubation Assessment/Plan Monitoring Supportive treatment Downgrade to telemetry Oxygen Respiratory treatment IV antibiotics Haldol 5 mg intramuscular Q 8 hours p.r.n. for agitation Breathing treatment DVT prophylax/Lovenox GI prophylax More recommendation per clinical course This medical document was created using an electronic medical record system with [employer] dictation system. Although this document has been carefully reviewed, there may still be some phonetic and typographical errors. These areas are purely typographical due to imperfections of the software programs, and do not reflect any compromise in the patient's medical care. Prognosis poor Dietary Evaluation Review Comments: 1. Recommend 2 g Na CCHO-60 diet as tolearated if Pt is awake, of vent and passes speech eval. 2. Consider TF Glucerna @ 40ml/hr (58g pro 1152 kcal in 24 hrs in FS), if GI accessible, EN is the choice for nutrition support. Add Clinimix 41ml/hr x 24 hrs for the addiitonal protein needs, 3. Consider TPN per pharmacy if NPO > 7 days and EN not the option of nutrition support. Expected Outcomes/Goals: Improved breathing, gradual wt loss. on PO 2 g Na CCHo-60 diet texture as tolerated. Plan discussed with: Other CALEB NORMAN MD Jun 05, 2024 10:28
--- NOTE | 2024-06-05 21:27 | DVHPN2 ---
Progress Note - Dictate Date Seen: Jun 05, 2024 Medical Necessity Reason Pt with a Central, PICC or Fol: Yes The following are medically ne: Garcia Catheter Reason for garcia catheter: Strict I&O Subjective Patient seen and examined at bedside. Remains on supplemental oxygen Overnight events reviewed. vital signs Vital Sign Date Time Temp Pulse Resp B/P (MAP) Pulse Ox O2 Delivery O2 Flow Rate FiO2 06/05/24 21:00 97.6 74 22 141/87 (105) 100 97.6 06/05/24 18:31 Nasal Cannula 4.0 06/05/24 18:31 36 Total Intake and Output 06/04/24 06/04/24 06/05/24 15:00 23:00 07:00 Intake Total 328 ml 478 ml 1018 ml Output Total 1600 ml 500 ml Balance 328 ml -1122 ml 518 ml medications Current Medications Medications Dose Ordered Sig/Mindy Route Start Time Stop Time Status Last Admin Dose Admin Morphine Sulfate 2 mg Q30MP PRN IV 05/22/24 09:00 UNV Morphine Sulfate 2 mg Q30M PRN IV 05/22/24 09:30 05/31/24 21:29 2 MG Enoxaparin Sodium 30 mg DAILY SC 05/22/24 10:00 06/05/24 11:04 30 MG Acetaminophen 650 mg Q6HP PRN PO 05/22/24 09:00 05/26/24 13:00 650 MG Nitroglycerin 0.4 mg Q5MINP PRN SL 05/22/24 09:00 UNV Nitroglycerin 0.4 mg Q5MINP PRN SL 05/22/24 09:00 Fentanyl Citrate 250 ml @ 2.5 mls/hr Q24H IV 05/22/24 14:45 05/28/24 02:39 7.5 MLS/HR Aspirin 81 mg DAILY PO 05/23/24 10:00 06/05/24 11:06 81 MG Atorvastatin Calcium 40 mg HS PO 05/22/24 22:00 06/04/24 21:57 40 MG Ipratropium [place] 0.5 mg Q4HR NEB 05/23/24 14:00 06/05/24 18:31 0.5 MG Midazolam HCl 50 ml @ 1 mls/hr Q24H IV 05/23/24 12:15 05/25/24 02:40 4 MLS/HR Methylprednisolone Sodium Succinate 40 mg BID IV 05/24/24 22:00 06/05/24 11:05 40 MG Hydralazine HCl 10 mg Q6H PRN IV 05/26/24 03:15 06/04/24 05:14 10 MG Budesonide 0.5 mg BID NEB 05/26/24 22:00 06/05/24 06:20 0.5 MG Labetalol HCl 20 mg Q4HPRN PRN IV 05/26/24 18:00 06/02/24 06:34 20 MG Diagnostic Test (Pha) 1 strip Q6HR 05/27/24 12:00 06/05/24 18:26 1 STRIP Insulin Human Regular FOLLOW SLIDING SCALE Q6HR SC 05/27/24 12:00 06/05/24 17:25 16 UNITS Dextrose 50 ml UD IV 05/27/24 11:00 Vancomycin HCl 0 ml @ 0 mls/hr UD IV 05/28/24 09:45 Levalbuterol HCl 0.625 mg Q4HR NEB 05/29/24 18:00 06/05/24 18:31 0.625 MG Haloperidol Lactate 5 mg Q8HP PRN IM 05/29/24 19:00 Furosemide 40 mg DAILY IV 05/30/24 10:45 06/05/24 11:05 40 MG Amino Acids 0 ml @ 0 mls/hr PER PHARMACY IV 05/30/24 20:00 Amino Acids/ Electrolytes/ Dextrose 1,000 ml @ 41 mls/hr DAILY@2200 IV 05/30/24 22:00 06/05/24 20:43 41 MLS/HR Carvedilol 12.5 mg Q12HR PO 06/01/24 22:00 06/05/24 11:06 12.5 MG Acetylcysteine 100 mg Q8HR NEB 06/01/24 14:00 06/05/24 14:41 100 MG Pantoprazole Sodium 40 mg DAILY IV 06/01/24 10:00 06/05/24 11:05 40 MG Vancomycin HCl 250 ml @ 200 mls/hr Q18H IV 06/04/24 00:00 06/05/24 12:28 200 MLS/HR objective Gen.: Patient lying in bed in no apparent distress. On supplemental oxygen. Head: Normocephalic, atraumatic. Eyes: EOMI/PERRLA. Ears: Normal hearing. Normal anatomy. Neck/trachea: Trachea midline, supple. Nose: Normal external anatomy. Mouth: Moist mucous membranes. Chest: Decreased air entry bilaterally. No wheezing or rhonchi. Cardiovascular: Positive S1, positive S2. Regular rate and rhythm. Abdomen: Positive bowel sounds in all 4 quadrants. Soft, non-tender, non- distended. : Deferred. Rectal: Deferred. Skin: Warm, dry. Intact. Extremities: 2+ radial pulses bilaterally. No lower extremity edema. Neuro: Awake, alert, oriented x3. No gross motor or sensory deficits. Cranial nerves II through XII intact. Gait not assessed. laboratory and microbiology Laboratory Tests 06/05/24 05:08 Test 06/05/24 05:08 Range/Units Serum Glucose 197 H 74-106 mg/dL Assessment/Plan Impression: Acute hypoxic respiratory failure Acute hypercarbic respiratory failure COPD exacerbation Hx of nicotine dependence Morbid obesity, BMI 40 Atelectasis Events: Remains on supplemental oxygen, 5 LPM Oxymizer Taper O2 as tolerated Continue bronchodilators. Continue antibiotics. Continue steroids - taper as tolerated Incentive spirometry Patient did not tolerate BIPAP at night Clinimix for nutritional support HOB elevation Aspiration precautions. Diurese as tolerated w/ Lasix Monitor renal function Monitor electrolytes. Supplement as necessary. Patient is stable for downgrade from the pulmonary standpoint. S/p therapeutic bronchoscopy with LLL BAL on 05/26/24 - cleared mucous plugging from L6-L10 and R6-R10 Labs and imaging reviewed. Rest of plan as noted below. Plan: s/p extubation on 05/29/24 Continue supplemental oxygen Titrate to keep sats above 92% Off pressors, hemodynamically stable Continue bronchodilators. Continue antibiotics. Continue steroids F/u cultures. Pressors if necessary for hemodynamic support Titrate to keep mean arterial pressure greater than 65 mmHg. Monitor renal function Monitor electrolytes. Supplement as necessary. Monitor ins and outs. Maintain euvolemia. Morbid Obesity - complicates all care GI prophylaxis. DVT prophylaxis. Prognosis: Poor given patient's multiple co-morbidities. Rest of plan per hospitalist and other consultants. Thank you, RAFA Thurman, for allowing me to participate in this patient's care. Further recommendations will depend on the patient's clinical course. Please do not hesitate to contact me if you have any questions or concerns. This medical document was created using an electronic medical record system with [employer] dictation system. Although these documentations are being carefully reviewed, there may still be some phonetic and typographical changes. The errors are purely typographical, due to imperfection on the software program, and do not reflect any compromise in the patient's medical care. Dietary Evaluation Review Comments: 1. Recommend 2 g Na CCHO-60 diet as tolearated if Pt is awake, of vent and passes speech eval. 2. Consider TF Glucerna @ 40ml/hr (58g pro 1152 kcal in 24 hrs in FS), if GI accessible, EN is the choice for nutrition support. Add Clinimix 41ml/hr x 24 hrs for the addiitonal protein needs, 3. Consider TPN per pharmacy if NPO > 7 days and EN not the option of nutrition support. Expected Outcomes/Goals: Improved breathing, gradual wt loss. on PO 2 g Na CCHo-60 diet texture as tolerated. Plan discussed with: Patient, Other (RN) RYAN ROMERO MD Jun 05, 2024 21:27
[2024-06-06] VITALS (15 sets, daily range): BP systolic 129–147; BP diastolic 56–82; PULSE 16–101; RESP 17–95; TEMP 97.1–98.2; O2SAT 92–98
[2024-06-06 06:34] LABS: Basophils # (auto) 0.1 10 ^3/uL (0-0.2); Basophils % (auto) 0.4 % (0.0-2.0); Eosinophils # (auto) 0 10 ^3/uL (0-0.8); Hematocrit 38.7 % (41.0-53.0); Hemoglobin 13.2 g/dL (13.5-17.5); Lymphocytes # (auto) 0.3 10 ^3/uL (0.4-5.4); Lymphocytes % (auto) 1.9 % (10.0-50.0); Mean Corpuscular Hemoglobin 30.9 pg (28.0-32.0); Mean Corpuscular Hgb Conc. 34.2 g/dL (32.0-36.0); Mean Corpuscular Volume 90.5 fL (80.0-100.0); Monocytes # (auto) 0.6 10 ^3/uL (0-1.3); Neutrophils # (auto) 17.3 10 ^3/uL (1.6-8.6); Neutrophils % (auto) 94.7 % (37.0-80.0); Nucleated Red Blood Cells % 0.1 %; Platelet Count (auto) 129 10^3/uL (140-450); Red Blood Cells 4.28 10^6/uL (4.5-5.90); Red Cell Distribution Width 13.1 % (11.8-14.3); White Blood Cell 18.2 10^3/uL (4.4-10.8)
[2024-06-06 06:52] LABS: Alanine Aminotransferase 39 U/L (7-40); Alkaline Phosphatase 69 U/L (46-116); Anion Gap 5 (5-15); Aspartate Aminotransferase 32 U/L (13-40); BUN/Creatinine Ratio 40.9 (10.0-20.0); Calcium 9.6 mg/dL (8.7-10.4); Magnesium 2.2 mg/dL (1.6-2.6); Potassium 3.6 mmol/L (3.5-5.1); Sodium 139 mmol/L (136-145)
[2024-06-06 06:53] LABS: Blood Urea Nitrogen 47 mg/dL (9-23); Carbon Dioxide 38 mmol/L (20-31); Chloride 96 mmol/L (98-107); Glucose 199 mg/dL (74-106); Phosphorus 3.6 mg/dL (2.4-5.1)
[2024-06-06 06:54] LABS: Bilirubin, Total 2.2 mg/dL (0.2-1.0)
--- NOTE | 2024-06-06 11:02 | MEDREC ---
[facility] Intervention Section I [facility] Intervention: Deescalate AB based on CS (10 DAYS ON VANCOMYCIN FOR MSSA - PLEASE CONSIDER DE-ESCALATION OR DISCONTINUATION IF CLINICALLY RELEVANT) CECILIA FERRARO PHARMACIST Jun 06, 2024 11:02
--- NOTE | 2024-06-06 15:09 | DVHDS2 ---
Discharge Summary Date of Admission May 22, 2024 at 08:23 Date of Discharge: Jun 06, 2024 Admitting Diagnosis Acute hypoxic respiratory failure Labs/Diagnostic Data: Laboratory Results Test 06/06/24 12:24 06/06/24 06:19 06/05/24 05:08 06/02/24 04:44 POC Glucose 343 mg/dl (70-106) White Blood Count 18.2 10^3/uL (4.4-10.8) Red Blood Count 4.28 10^6/uL (4.5-5.90) Hemoglobin 13.2 g/dL (13.5-17.5) Hematocrit 38.7 % (41.0-53.0) Mean Corpuscular Volume 90.5 fL (80.0-100.0) Mean Corpuscular Hemoglobin 30.9 pg (28.0-32.0) Mean Corpuscular Hemoglobin Concent 34.2 g/dL (32.0-36.0) Red Cell Distribution Width 13.1 % (11.8-14.3) Platelet Count 129 10^3/uL (140-450) Mean Platelet Volume 9.8 fL (6.9-10.8) Neutrophils (%) (Auto) 94.7 % (37.0-80.0) Lymphocytes (%) (Auto) 1.9 % (10.0-50.0) Monocytes (%) (Auto) 3.0 % (0.0-12.0) Eosinophils (%) (Auto) 0.0 % (0.0-7.0) Basophils (%) (Auto) 0.4 % (0.0-2.0) Neutrophils # (Auto) 17.3 10 ^3/uL (1.6-8.6) Lymphocytes # (Auto) 0.3 10 ^3/uL (0.4-5.4) Monocytes # (Auto) 0.6 10 ^3/uL (0-1.3) Eosinophils # (Auto) 0 10 ^3/uL (0-0.8) Basophils # (Auto) 0.1 10 ^3/uL (0-0.2) Nucleated Red Blood Cells 0.1 % Sodium Level 139 mmol/L (136-145) Potassium Level 3.6 mmol/L (3.5-5.1) Chloride Level 96 mmol/L (98-107) Carbon Dioxide Level 38 mmol/L (20-31) Anion Gap 5 (5-15) Blood Urea Nitrogen 47 mg/dL (9-23) Creatinine 1.15 mg/dL (0.700-1.30) Glomerular Filtration Rate Calc 65 mL/min (>90) BUN/Creatinine Ratio 40.9 (10.0-20.0) Serum Glucose 199 mg/dL (74-106) Calcium Level 9.6 mg/dL (8.7-10.4) Phosphorus Level 3.6 mg/dL (2.4-5.1) Magnesium Level 2.2 mg/dL (1.6-2.6) Total Bilirubin 2.2 mg/dL (0.2-1.0) Aspartate Amino Transferase (AST) 32 U/L (13-40) Alanine Aminotransferase (ALT) 39 U/L (7-40) Alkaline Phosphatase 69 U/L (46-116) Total Protein 5.0 g/dL (5.7-8.2) Albumin 3.0 g/dL (3.2-4.8) Vancomycin Level Trough 16.5 ug/mL (5-10) Differential Total Cells Counted 100.0 (100) Neutrophils % (Manual) 97 (37.0-80.0) Band Neutrophils % (Manual) 0 Lymphocytes % (Manual) 2 (10.0-50.0) Monocytes % (Manual) 1 (0-12) Eosinophils % (Manual) 0 (0-7) Basophils % (Manual) 0 (0.0-2.0) Metamyelocytes % (manual) 0 Myelocytes % (Manual) 0 Promyelocytes % (Manual) 0 Blast Cells % (Manual) 0 Reactive Lymphocytes 0 Platelet Estimate Decreased Red Blood Cell Morphology Normal Triglycerides Level 127 mg/dL (< 150) Estimated GFR () 96 mL/min Estimated GFR (Non- 79 mL/min Test 06/01/24 21:00 06/01/24 13:29 05/30/24 04:30 05/29/24 11:30 Stool Occult Blood Positive (Negative) Stool Occult Blood Sample #3 (Negative) Blood Gas Specimen Type Arterial Blood Gas Sample Site Left radial Blood Gas Patient Temperature 37.0 Arterial Blood Date Drawn [id number] Arterial Blood pH 7.462 (7.350-7.450) Arterial Blood Partial Pressure CO2 43.8 mmHg (35.0-48.0) Arterial Blood Partial Pressure O2 51.8 mmHg (83.0-108.0) Arterial Blood HCO3 30.6 mmol/L (21.0-28.0) Arterial Blood Oxygen Saturation 85.9 % (94.0-98.0) Arterial Blood Base Excess 6.0 mmol/L (-2.0-3.0) Arterial Blood Oxyhemoglobin 84.7 % (94.0-98.0) Arterial Blood Carboxyhemoglobin 1.0 % (0.5-1.5) Arterial Blood Methemoglobin 0.4 % (0.0-1.5) Jun Test Yes Blood Gas Total Hemoglobin 14.50 g/dL (13.5-17.5) Blood Gas Liter Flow 10.00 Blood Gas Modality Oxymizer FiO2 % 72.0 Blood Gas Critical Value Read Back Yes Blood Gas Notified Whom benjamin Barba Blood Gas Notified Time [id number] Blood Gas Notified By Art Display Maker radha romero Blood Gas Spontaneous Rate 30 Specimen Drawn By [facility] rt Blood Gas Pressure Support 8 Blood Gas PEEP or CPAP 5.0 Test 05/29/24 07:20 05/28/24 04:46 05/23/24 10:24 05/23/24 05:45 Blood Gas Set Respiration Rate 18.0 Blood Gas Tidal Volume 500.0 Direct Bilirubin 0.3 mg/dL (<0.3) Blood Gas Inspiratory Pressure 19.0 Blood Gas Comments i-time 0.9 sec. Hemoglobin A1c 6.5 % A1C (<5.7) Cholesterol Level 112 mg/dL (< 200) LDL Cholesterol 48 mg/dL (< 100) HDL Cholesterol 49 mg/dL (40-59) Thyroid Stimulating Hormone (TSH) 0.71 uIU/mL (0.55-4.78) Test 05/22/24 16:24 05/22/24 14:50 05/22/24 08:20 05/22/24 08:17 Blood Gas Spontaneous Tidal Volume 550 Lactic Acid Level 1.4 mmol/L (0.4-2.0) Blood Gas EPAP 8 Blood Gas IPAP 18 Troponin I High Sensitivity 73 ng/L (</=54) Test 05/22/24 05:50 05/22/24 05:01 05/22/24 04:19 Influenza Type A Antigen Negative (Negative) Influenza Type B Antigen Negative (Negative) SARS-CoV-2 Antigen (Rapid) Negative (NEGATIVE) Urine Color Light-yellow (Yellow) Urine Clarity Clear (Clear) Urine pH 5.5 (5.0-9.0) Urine Specific [place] 1.011 (1.001-1.035) Urine Protein Trace (Negative) Urine Ketones Negative (Negative) Urine Blood 1+ /uL (Negative) Urine Nitrite Negative (Negative) Urine Bilirubin Negative (Negative) Urine Urobilinogen Normal mg/dL (Negative) Urine Leukocyte Esterase Negative /uL (Negative) Urine RBC 2 /hpf (0 - 3) Urine WBC 1 /hpf (0 - 3) Urine Squamous Epithelial Cells None seen /hpf (<5) Urine Bacteria None seen /hpf (None Seen) Urine Glucose Normal mg/dL (Normal) D-Dimer, Quantitative 0.79 mg/L FEU (0.0-0.49) B-Type Natriuretic Peptide 326.61 pg/mL (0-100) Other Laboratory Tests 06/06/24 06:19 Brief Hx & Hospital Course: History of Present Illness Marlon Gomes is a 79-year-old male with past medical history of hypertension, COPD, asthma, CAD, OH status post PTCA. Patient's daughter reports that the stent was placed in [place] over 5 years ago. Patient's daughter also reports that around 3:00 a.m. her father woke her up became short of breath felt some chest tightness and she gave him an inhaler with no relief, she checked her oxygen saturation was 91% on room air then she called EMS. Patient's daughter reports that he has annual COPD exacerbations, he was a heavy smoker and quit recently. Patient denies chest pain, nausea and vomiting at this time. Patient's daughter does report that recently he was sick with a cold and got better. Course of hospitalization: Patient had pulmonology consultation. Patient was successfully weaned off mechanical ventilation. Sputum culture was positive for MRSA for which the patient was started on vancomycin. Patient was O2 supplementation has decreased to 2-3 liters/minute via nasal cannula. Patient has been seen by Physical therapy with recommendations [facility]. Long discussion was made with the patient's family who were agreeable with discharge plan. Patient will be discharged to [facility] for rehab, and continued IV antibiotic therapy with vancomycin for three more days. Physical examination General: Alert and Oriented x3. No acute distress. Well-nourished. Eyes: EOMI. Anicteric. HENT: Moist mucous membranes. Lungs: Clear to auscultation bilaterally. No accessory muscle use. Cardiovascular: Regular rate and rhythm. No murmur. No JVD. Abdomen: Soft, non-tender and non-distended. No palpable masses. Extremities: No edema. Non-tender. Skin: No rashes or lesions. Warm. Neurologic: No focal neurological deficits. CN II-XII grossly intact, but not individually tested. Psychiatric: Cooperative. Appropriate mood and affect. Total time spent with patient discussing and formulating plan of care: 35 minutes. This medical document was created using an electronic medical record system with [employer] dictation system. Although this document has been carefully reviewed, there may still be some phonetic and typographical errors. These areas are purely typographical due to imperfections of the software programs, and do not reflect any compromise in the patient's medical care. Consults/Reason for consult Pulmonology: Acute respiratory failure with mechanical ventilation Condition at Discharge: Fair Final Diagnosis/Problems List Acute hypoxic and hypercarbic respiratory failure Secondary Diagnosis: -COPD with exacerbation -leukocytosis, rule out sepsis -obesity -history of CAD -history of nicotine dependence -NSTEMI type 2 secondary to respiratory failure -acute kidney injury, rule out vasomotor nephropathy -right middle and lower lobe atelectasis -rule out beta-ramon withdrawal -diabetes mellitus Discharge Disposition: Longterm Facility Discharge Instruct/Medications Diet: Consistent carbohydrate, Cardiac 2g Na,low cholest Activity: No Restrictions, As Tolerated Follow Up/Referral: Per accepting provider Medications: Refer to medication reconciliation form 36 Discharge Statement: "Patient was advised to return to the ER or call 911 if any headaches, dizziness, shortness of breath, chest pain, abdominal pain, bleeding, fevers, or worsening of medical condition. Patient was counseled about treatment plan, medications, possible side effects, patientverbalized understanding. All questions were answered to the best of my ability. This discharge took greater then 30 minutes in planning, reviewing documentation, counseling the patient, and discussing with other team members." ASSESSMENT ASSESSMENT Assessment Acute hypoxic and hypercarbic respiratory failure Date of Service: Jun 06, 2024 Billing Provider: YOLI KAY NP Common Visit Codes: 22480-PCX/OBS DISCH DAY >30min YOLI KAY NP Jun 06, 2024 15:09
[2024-06-06] MEDS ORDERED: IPRATROPIUM BROM 0.5 MG/2.5ML INH SOL NEB SCH (18:00)
[2024-06-06] MEDS ORDERED: LEVALBUTEROL HCL 1.25 MG/3 ML NEB NEB SCH (18:00)
[2024-06-06] MEDS ORDERED: Glucerna Carbsteady SHAKE Vanilla 8oz PO SCH (18:00)
--- NOTE | 2024-06-06 23:54 | DVHPN2 ---
Progress Note - Dictate Date Seen: Jun 06, 2024 Medical Necessity Reason Pt with a Central, PICC or Fol: Yes The following are medically ne: Garcia Catheter Reason for garcia catheter: Strict I&O Subjective Patient seen and examined at bedside. Remains on supplemental oxygen Overnight events reviewed. vital signs Vital Sign Date Time Temp Pulse Resp B/P (MAP) Pulse Ox O2 Delivery O2 Flow Rate FiO2 06/06/24 16:41 98.1 19 88 129/76 (93) 96 98.1 06/06/24 10:10 Nasal Cannula* 3 32 Total Intake and Output 06/05/24 06/05/24 06/06/24 15:00 23:00 07:00 Intake Total 369 ml 41 ml Output Total 250 ml 1200 ml Balance 119 ml -1159 ml medications Current Medications Medications Dose Ordered Sig/Mindy Route Start Time Stop Time Status Last Admin Dose Admin Morphine Sulfate 2 mg Q30MP PRN IV 05/22/24 09:00 UNV Nitroglycerin 0.4 mg Q5MINP PRN SL 05/22/24 09:00 UNV objective Gen.: Patient lying in bed in no apparent distress. On supplemental oxygen. Head: Normocephalic, atraumatic. Eyes: EOMI/PERRLA. Ears: Normal hearing. Normal anatomy. Neck/trachea: Trachea midline, supple. Nose: Normal external anatomy. Mouth: Moist mucous membranes. Chest: Decreased air entry bilaterally. No wheezing or rhonchi. Cardiovascular: Positive S1, positive S2. Regular rate and rhythm. Abdomen: Positive bowel sounds in all 4 quadrants. Soft, non-tender, non- distended. : Deferred. Rectal: Deferred. Skin: Warm, dry. Intact. Extremities: 2+ radial pulses bilaterally. No lower extremity edema. Neuro: Awake, alert, oriented x3. No gross motor or sensory deficits. Cranial nerves II through XII intact. Gait not assessed. laboratory and microbiology Laboratory Tests 06/06/24 06:19 Test 06/06/24 06:19 Range/Units Serum Glucose 199 H 74-106 mg/dL Assessment/Plan Impression: Acute hypoxic respiratory failure Acute hypercarbic respiratory failure COPD exacerbation Hx of nicotine dependence Morbid obesity, BMI 40 Atelectasis Events: Remains on supplemental oxygen, 3 LPM NC Taper O2 as tolerated Improved O2 requirements Continue bronchodilators. Continue antibiotics. Continue steroids - taper as tolerated Incentive spirometry Clinimix for nutritional support HOB elevation Aspiration precautions. Diurese as tolerated w/ Lasix Monitor renal function Monitor electrolytes. Supplement as necessary. Patient is stable for discharge from the pulmonary standpoint. Disposition to SNF Follow up in Pulmonary Clinic in 2-3 weeks S/p therapeutic bronchoscopy with LLL BAL on 05/26/24 - cleared mucous plugging from L6-L10 and R6-R10 Labs and imaging reviewed. Rest of plan as noted below. Plan: s/p extubation on 05/29/24 Continue supplemental oxygen Titrate to keep sats above 92% Off pressors, hemodynamically stable Continue bronchodilators. Continue antibiotics. Continue steroids F/u cultures. Pressors if necessary for hemodynamic support Titrate to keep mean arterial pressure greater than 65 mmHg. Monitor renal function Monitor electrolytes. Supplement as necessary. Monitor ins and outs. Maintain euvolemia. Morbid Obesity - complicates all care GI prophylaxis. DVT prophylaxis. Prognosis: Guarded given patient's multiple co-morbidities. Rest of plan per hospitalist and other consultants. Thank you, RAFA Thurman, for allowing me to participate in this patient's care. Further recommendations will depend on the patient's clinical course. Please do not hesitate to contact me if you have any questions or concerns. This medical document was created using an electronic medical record system with [employer] dictation system. Although these documentations are being carefully reviewed, there may still be some phonetic and typographical changes. The errors are purely typographical, due to imperfection on the software program, and do not reflect any compromise in the patient's medical care. Dietary Evaluation Review Comments: 1. Recommend 2 g Na CCHO-60 diet as tolearated if Pt is awake, of vent and passes speech eval. 2. Consider TF Glucerna @ 40ml/hr (58g pro 1152 kcal in 24 hrs in FS), if GI accessible, EN is the choice for nutrition support. Add Clinimix 41ml/hr x 24 hrs for the addiitonal protein needs, 3. Consider TPN per pharmacy if NPO > 7 days and EN not the option of nutrition support. Expected Outcomes/Goals: Improved breathing, gradual wt loss. on PO 2 g Na CCHo-60 diet texture as tolerated. Plan discussed with: Patient, Other (MALICK Herbert) RYAN ROMERO MD Jun 06, 2024 23:54
[2024-06-07] MEDS ORDERED: FUROSEMIDE 20 MG TAB PO SCH (10:00)
== END 2024-06-06 16:55 | DRG 207 ==
LOC: EDBD 03:39 → ER 03:39 → OVERFLOW 08:23 → ER 08:57 → ICU WEST 05-24 13:55 → DOU IN ICU 05-27 00:30 → ICU CENTRL 05-27 03:03 → DOU IN ICU 05-30 21:12 → TELE-WESTW 06-05 16:04
PROVIDERS: ADMIT Internal Medicine; ATTEND Nurse Practitioner Acute Care
PROC: 5A1955Z Respiratory Ventilation, Greater than 96 Consecutive Hours (ICD-10-PCS; principal; 2024-05-22)
PROC: 05HN33Z Insertion of Infusion Device into Left Internal Jugular Vein, Percutaneous Approach (ICD-10-PCS; 2024-05-22)
PROC: 0BH17EZ Insertion of Endotracheal Airway into Trachea, Via Natural or Artificial Opening (ICD-10-PCS; 2024-05-22)
PROC: 5A09357 Assistance with Respiratory Ventilation, Less than 24 Consecutive Hours, Continuous Positive Airway Pressure (ICD-10-PCS; 2024-05-22)
PROC: 0B9J8ZX Drainage of Left Lower Lung Lobe, Via Natural or Artificial Opening Endoscopic, Diagnostic (ICD-10-PCS; 2024-05-26)
PROC: 5A09357 Assistance with Respiratory Ventilation, Less than 24 Consecutive Hours, Continuous Positive Airway Pressure (ICD-10-PCS; 2024-05-29)
PROC: 5A09357 Assistance with Respiratory Ventilation, Less than 24 Consecutive Hours, Continuous Positive Airway Pressure (ICD-10-PCS; 2024-05-30)
PROC: 5A0935A Assistance with Respiratory Ventilation, Less than 24 Consecutive Hours, High Flow/Velocity Cannula (ICD-10-PCS; 2024-05-30)
PROC: 5A0935A Assistance with Respiratory Ventilation, Less than 24 Consecutive Hours, High Flow/Velocity Cannula (ICD-10-PCS; 2024-05-31)
PROC: 5A0935A Assistance with Respiratory Ventilation, Less than 24 Consecutive Hours, High Flow/Velocity Cannula (ICD-10-PCS; 2024-06-01)
PROC: 5A0935A Assistance with Respiratory Ventilation, Less than 24 Consecutive Hours, High Flow/Velocity Cannula (ICD-10-PCS; 2024-06-02)
PROC: 5A0935A Assistance with Respiratory Ventilation, Less than 24 Consecutive Hours, High Flow/Velocity Cannula (ICD-10-PCS; 2024-06-03)
PROC: 5A09357 Assistance with Respiratory Ventilation, Less than 24 Consecutive Hours, Continuous Positive Airway Pressure (ICD-10-PCS; 2024-06-04)
PROC: 5A0935A Assistance with Respiratory Ventilation, Less than 24 Consecutive Hours, High Flow/Velocity Cannula (ICD-10-PCS; 2024-06-04)
PROC: 5A09357 Assistance with Respiratory Ventilation, Less than 24 Consecutive Hours, Continuous Positive Airway Pressure (ICD-10-PCS; 2024-06-06)
DX: J96.21 Acute and chronic respiratory failure with hypoxia (principal); G92.8 Other toxic encephalopathy; N17.0 Acute kidney failure with tubular necrosis; I21.A1 Myocardial infarction type 2; I50.23 Acute on chronic systolic (congestive) heart failure; G93.1 Anoxic brain damage, not elsewhere classified; J44.1 Chronic obstructive pulmonary disease with (acute) exacerbation; Z68.41 Body mass index [BMI] 40.0-44.9, adult; E87.4 Mixed disorder of acid-base balance; J96.22 Acute and chronic respiratory failure with hypercapnia; Z20.822 Contact with and (suspected) exposure to COVID-19; E66.01 Morbid (severe) obesity due to excess calories; R47.1 Dysarthria and anarthria; E78.5 Hyperlipidemia, unspecified; G47.33 Obstructive sleep apnea (adult) (pediatric); I25.10 Atherosclerotic heart disease of native coronary artery without angina pectoris; I11.0 Hypertensive heart disease with heart failure; Z87.891 Personal history of nicotine dependence; Z88.8 Allergy status to other drugs, medicaments and biological substances; Z98.61 Coronary angioplasty status; Z83.3 Family history of diabetes mellitus; Z82.49 Family history of ischemic heart disease and other diseases of the circulatory system; Z68.37 Body mass index [BMI] 37.0-37.9, adult
CPT/HCPCS: 36415; 36556; 36600; 70450; 71045; 71275; 80048; 80053; 80061; 80069; 80076; 80202; 81001; 82270; 82805; 82962; 83036; 83605; 83735; 83880; 84100; 84443; 84478; 84484; 85007; 85025; 85027; 85379; 87040; 87070; 87077; 87081; 87186; 87205; 87426; 87804; 92507; 92610; 93005; 93306; 94002; 94003; 94640; 94644; 94660; 94667; 94668; 97110; 97163; 97530; G0378; J0696; J1815; J2405; J2470; J2704; J3480; J7060

== ENCOUNTER 2024-06-11 11:10 | Inpatient (IN) | payer OTHER ==
[2024-06-11] VITALS (7 sets, daily range): BP systolic 94–121; BP diastolic 61–68; PULSE 63–88; RESP 18–29; TEMP 98.3; O2SAT 90–100
[~2024-06-11] VITALS: Ht 170.2 cm; Wt 105.3 kg
[~2024-06-11 11:10] MED LIST changes: +DUPI1INJ SC; -HYDR-3682 PO
--- NOTE | 2024-06-11 11:20 | ED.PDOC ---
SOB-HPI HPI Comments 79 year old male brought in by EMS from [facility] with a chief complaint of shortness of breath onset today about 2 hours. Per EMS, patient was found hunched over, using accessory muscles to breath, O2 sat was mid 90s. Upon ED arrival patient was lethargic, using accessory muscles, was able to follow commands and nods to questions. PMHx HTN, COPD, HLD, CAD, HI. Chief Complaint: Shortness of Breath Time Seen by MD: 11:12 Primary Care Provider: JOHNATHON Wyatt notes: Medications, Allergies Information Source: Patient, Emergency Med Personnel Mode of Arrival: EMS Severity: Moderate Timing: Hours Duration: Since onset Context: At Rest PE Risk Factors: None History of: COPD Prehospital treatment: C-Pap, Oxygen Modifying Factors: Nothing Associated Signs and Symptoms: Chest Pain Quality: Other (discomfort ) Radiation: No Radiation Past Medical History PAST MEDICAL HISTORY: CAD, COPD, High Lipids, HTN, HI Surgical History: PTCA, Denies all surgeries Family History Family History: Reviewed,noncontributory to illness, Family hx of DM, Family hx of heart benjy, Family hx of HTN Social History Smoker: Quit Greater Than 1 Year, Cigarettes Alcohol: Occasionally Drugs: Denies Drug Use Lives In: Assisted Care Constitutional: denies: chills, diaphoresis, fatigue, fever, malaise, sweats, weakness, others Respiratory: reports: shortness of breath; denies: cough, hemoptysis, orthopnea, SOB at rest, SOB with excertion, stridor, wheezing, others Cardiovascular: reports: chest pain; denies: dizzy spells, diaphoresis, Dyspnea on exertion, edema, irregular heart beat, left arm pain, lightheadedness, palpitations, PND, syncope, others Gastrointestinal: denies: abdomen distended, abdominal pain, blood streaked bowels, constipated, diarrhea, dysphagia, difficulty swallowing, hematemesis, melena, nausea, poor appetite, poor fluid intake, rectal bleeding, rectal pain, vomiting, others Genitourinary: denies: burning, dysuria, flank pain, frequency, hematuria, incontinence, penile discharge, penile sore, pain, testicle pain, testicle swelling, urgency, others Neurological: denies: dizziness, fainting, headache, left sided numbness, left sided weakness, numbness, paresthesia, pre-existing deficit, right sided numbness, right sided weakness, seizure, speech problems, tingling, tremors, weakness, others Musculoskeletal: denies: back pain, gout, joint pain, joint swelling, muscle pain, muscle stiffness, neck pain, others Integumetry: denies: bruises, change in color, change in hair/nails, dryness, laceration, lesions, lumps, rash, wounds, others Allergic/Immunocompromised: denies: Difficulty Healing, Frequent Infections, Hives, Itching, others Hematologic/Lymphatic: denies: anemia, blood clots, easy bleeding, easy bruising, swollen glands, others Endocrine: denies: excessive hunger, excessive sweating, excessive thirst, excessive urination, flushing, intolerance to cold, intolerance to heat, unexplained weight gain, unexplained weight loss, others Psychiatric: denies: anxiety, bipolar disorder, depression, hopeless, panic disorder, schizophrenia, sleepless, suicidal, others All Other Systems: Reviewed and Negative Physical Exam General Appearance: Severe Distress HEENT: Normal ENT Inspection, Pharynx Normal, TMs Normal Neck: Full Range of Motion, Non-Tender, Normal, Normal Inspection Respiratory: Respiratory Distress, Other (Coarse breath sounds) Cardiovascular: No Edema, No JVD, No Murmur, No Gallop, Normal Peripheral Pulses, Regular Rate/Rhythm Breast Exam: Deferred Gastrointestinal: No Organomegaly, Non Tender, No Pulsatile Mass, Normal Bowel Sounds, Soft Genitalia: Deferred Pelvic: Deferred Rectal: Deferred Extremities: No calf tenderness Musculoskeletal : Apperance: Normal Neurologic: Alert, No Motor Deficits, No Sensory Deficits Cerebellar Function: NOT DONE Reflexes: NOT DONE Skin: Pallor Peripheral Pulses: 3+ Radial (R), 3+ Radial (L) Lymphatic: No Adenopathy Was a procedure done? Was a procedure done?: No Differential Dx Differential Diagnosis: Anxiety, Asthma, Bronchitis, CHF, COPD X-Ray, Labs, Meds, VS Vital Signs Date Time Temp Pulse Resp B/P (MAP) Pulse Ox O2 Delivery O2 Flow Rate FiO2 06/11/24 12:41 20 92 Simple Mask* 10 99 06/11/24 12:00 77 06/11/24 11:25 109/58 06/11/24 11:25 98.1 75 29 109/58 (75) 94 98.1 06/11/24 11:16 98.1 77 32 127/61 (83) 93 06/11/24 11:15 75 29 94 Simple Mask* 10 99 06/11/24 11:14 83 Lab Test 06/11/24 11:42 06/11/24 11:20 Range/Units White Blood Count 12.2 #H 4.4-10.8 10^3/uL Red Blood Count 4.20 L 4.5-5.90 10^6/uL Hemoglobin 13.1 L 13.5-17.5 g/dL Hematocrit 40.3 L 41.0-53.0 % Mean Corpuscular Volume 95.9 # 80.0-100.0 fL Mean Corpuscular Hemoglobin 31.2 28.0-32.0 pg Mean Corpuscular Hemoglobin Concent 32.5 32.0-36.0 g/dL Red Cell Distribution Width 14.6 H 11.8-14.3 % Platelet Count 105 L 140-450 10^3/uL Mean Platelet Volume 9.9 6.9-10.8 fL Neutrophils (%) (Auto) 93.1 H 37.0-80.0 % Lymphocytes (%) (Auto) 2.2 L 10.0-50.0 % Monocytes (%) (Auto) 4.6 0.0-12.0 % Eosinophils (%) (Auto) 0.0 0.0-7.0 % Basophils (%) (Auto) 0.1 0.0-2.0 % Neutrophils # (Auto) 11.4 H 1.6-8.6 10 ^3/uL Lymphocytes # (Auto) 0.3 L 0.4-5.4 10 ^3/uL Monocytes # (Auto) 0.6 0-1.3 10 ^3/uL Eosinophils # (Auto) 0 0-0.8 10 ^3/uL Basophils # (Auto) 0 0-0.2 10 ^3/uL Nucleated Red Blood Cells 0.0 % Sodium Level 142 136-145 mmol/L Potassium Level 3.8 3.5-5.1 mmol/L Chloride Level 100 98-107 mmol/L Carbon Dioxide Level 36 H 20-31 mmol/L Anion Gap 6 5-15 Blood Urea Nitrogen 30 H 9-23 mg/dL Creatinine 1.01 0.700-1.30 mg/dL Glomerular Filtration Rate Calc 76 >90 mL/min BUN/Creatinine Ratio 29.7 H 10.0-20.0 Serum Glucose 166 H 74-106 mg/dL Calcium Level 8.5 L 8.7-10.4 mg/dL Troponin I High Sensitivity 158 *H </=54 ng/L B-Type Natriuretic Peptide Pending Blood Gas Specimen Type Arterial Blood Gas Sample Site Right radial Blood Gas Patient Temperature 37.0 Arterial Blood Date Drawn Arterial Blood pH 7.441 7.350-7.450 Arterial Blood Partial Pressure CO2 48.8 H 35.0-48.0 mmHg Arterial Blood Partial Pressure O2 57.3 L 83.0-108.0 mmHg Arterial Blood HCO3 32.5 H 21.0-28.0 mmol/L Arterial Blood Oxygen Saturation 88.5 L 94.0-98.0 % Arterial Blood Base Excess 7.1 H -2.0-3.0 mmol/L Arterial Blood Oxyhemoglobin 87.5 L 94.0-98.0 % Arterial Blood Carboxyhemoglobin 0.8 0.5-1.5 % Arterial Blood Methemoglobin 0.3 0.0-1.5 % Jun Test Yes Blood Gas Total Hemoglobin 13.20 L 13.5-17.5 g/dL Blood Gas Liter Flow 6.00 Blood Gas Modality Nasal cannula FiO2 % 44.0 Current Medications Medications (Trade) Dose Ordered Sig/Mindy Route Start Time Stop Time Status Last Admin Furosemide (Lasix Injection) 20 mg ONCE ONCE IV 06/11/24 11:15 06/11/24 11:17 DC 06/11/24 11:25 Methylprednisolone Sodium Succinate (Solu Medrol) 125 mg ONCE ONCE IV 06/11/24 12:45 06/11/24 12:46 06/11/24 12:36 Ipratropium [place] (Atrovent Medneb) 0.5 mg ONCE ONCE NEB 06/11/24 12:45 06/11/24 12:46 06/11/24 12:41 Albuterol (Ventolin Medneb) 5 mg ONCE ONCE NEB 06/11/24 12:45 06/11/24 12:46 06/11/24 12:41 .. [facility] [id number] [place] [id number] Ph: [phone] DIAGNOSTIC IMAGING Diagnostic Imaging Report : [id number] Signed PATIENT: VINICIO MELTON: [id number] UNIT: [id number] : 1945 LOC: ER ROOM / BED: / AGE / SEX: 79 / M ADM STATUS: REG ER SERVICE ORDERING PHYSICIAN: JOSE JUAN ENCISO MD PROCEDURE(s): CXRP - CHEST PORTABLE REASON: sob ORDER NUMBER(s): [id number], ACCESSION NUMBER(s): [id number] CHEST RADIOGRAPH Indication: sob Technique: Single frontal view of the chest was obtained COMPARISON: XY CHEST PORTABLE on DOS: 06/04/24, XY CHEST PORTABLE on DOS: 06/03/24, XY CHEST XRAY 1 VIEW on DOS: 05/31/24, XY CHEST PORTABLE on DOS: 05/30/24, XY CHEST PORTABLE on DOS: 05/29/24 FINDINGS: Lines and Tubes: None Lungs: Congestion Pleura: No effusion. No pneumothorax. Cardiomediastinal contours: Cardiomegaly Bones: Unremarkable IMPRESSION: Congestion. Cardiomegaly. ATED BY: GARRY LOWRY MD DICTATED DATE/TIME: 06/11/24 121 SIGNED BY: GARRY LOWRY MD SIGNED DATE/TIME: 06/11/24 121 CC: Patient alert. Came in on CPAP. Possible CHF. Using accessory muscles. Placed on oxygen. Was given Lasix pain Was given steroid. Was given breathing treatment. Chest x-ray reviewed does show cardiomegaly. Continue oxygen. ABG does show respiratory acidosis with metabolic alkalosis. Explained to the patient. Continue cardiac monitoring. EKG reviewed does not show any acute changes. Time of 1ST Reevaluation: 11:42 Reevaluation 1ST: Unchanged Patient Education/Counseling: Diagnosis, Treatment, Prognosis Family Education/Counseling: No Family Present Additional Information The following tests were ordered, and results were reviewed by me: TROP, CBC, BNP, XY CHEST, UA, BMP, ABG W/ CO-OX Additional Information was gathered from interviewing the following independent historians: EMS I reviewed and agreed with the following test results read by other providers: XY CHEST I discussed treatment and results with medical personnel and patient Departure 1 Departure Time of Disposition: 12:50 Impression: Primary Impression: Acute respiratory failure Qualified Codes: J96.01 - Acute respiratory failure with hypoxia Additional Impressions: COPD exacerbation Elevated troponin Anxiety Diastolic heart failure Qualified Codes: I50.33 - Acute on chronic diastolic (congestive) heart failure Disposition: ADMITTED INPATIENT Admit to: Med Surg Condition: Guarded Critical Care Note Critical Care Time?: Yes (90 min-critical care time only) Stability Stability form required: No Heart Score Heart Score: Heart Score Response (Comments) Value History Slightly Suspicious 0 EKG Normal 0 Age >65 2 Risk Factors >3 or Hx ASHD 2 Troponin 1-2 x's Normal limit 1 Total 5 I personally scribed for JOSE JUAN ENCISO MD ([email or web address]) on 06/11/24 at 11:20. Electronically submitted by Sruthi Ibanez ([email or web address]). I personally scribed for JOES JUAN ENCISO MD ([email or web address]) on 06/11/24 at 11:38. Electronically submitted by Sruthi Ibanez ([email or web address]). I personally scribed for JOSE JUAN ENCISO MD ([email or web address]) on 06/11/24 at 11:47. Electronically submitted by Sruthi Ibanez ([email or web address]). I personally scribed for JOSE JUAN ENCISO MD ([email or web address]) on 06/11/24 at 12:20. Electronically submitted by Sruthi Ibanez ([email or web address]). JOSE JUAN ENCISO MD Jun 11, 2024 11:20
[2024-06-11] MEDS: FUROSEMIDE 20 MG/2 ML VIAL IV ONE (11:25)
[2024-06-11 11:32] LABS: Base Excess 7.1 mmol/L (-2.0-3.0)
[2024-06-11 12:06] LABS: Basophils # (auto) 0 10 ^3/uL (0-0.2); Basophils % (auto) 0.1 % (0.0-2.0); Eosinophils # (auto) 0 10 ^3/uL (0-0.8); Hematocrit 40.3 % (41.0-53.0); Hemoglobin 13.1 g/dL (13.5-17.5); Lymphocytes # (auto) 0.3 10 ^3/uL (0.4-5.4); Lymphocytes % (auto) 2.2 % (10.0-50.0); Mean Corpuscular Hemoglobin 31.2 pg (28.0-32.0); Mean Corpuscular Hgb Conc. 32.5 g/dL (32.0-36.0); Mean Corpuscular Volume 95.9 fL (80.0-100.0); Monocytes # (auto) 0.6 10 ^3/uL (0-1.3); Monocytes % (auto) 4.6 % (0.0-12.0); Neutrophils # (auto) 11.4 10 ^3/uL (1.6-8.6); Neutrophils % (auto) 93.1 % (37.0-80.0); Platelet Count (auto) 105 10^3/uL (140-450); Red Cell Distribution Width 14.6 % (11.8-14.3); White Blood Cell 12.2 10^3/uL (4.4-10.8)
[2024-06-11 12:12] LABS: Chloride 100 mmol/L (98-107); Potassium 3.8 mmol/L (3.5-5.1); Sodium 142 mmol/L (136-145)
[2024-06-11 12:13] LABS: Anion Gap 6 (5-15)
--- NOTE | 2024-06-11 12:16 | DVH ---
CHEST RADIOGRAPH Indication: sob Technique: Single frontal view of the chest was obtained COMPARISON: XY CHEST PORTABLE on DOS: 06/04/24, XY CHEST PORTABLE on DOS: 06/03/24, XY CHEST XRAY 1 VIE W on DOS: 05/31/24, XY CHEST PORTABLE on DOS: 05/30/24, XY CHEST PORTABLE on DOS: 05/29/24 FINDINGS: Lines and Tubes: None Lungs: Congestion Pleura: No effusion. No pneumothorax. Cardiomediastinal contours: Cardiomegaly Bones: Unremarkable IMPRESSION: Congestion. Cardiomegaly.
[2024-06-11 12:19] LABS: BUN/Creatinine Ratio 29.7 (10.0-20.0)
[2024-06-11 12:32] LABS: Blood Urea Nitrogen 30 mg/dL (9-23); Calcium 8.5 mg/dL (8.7-10.4); Carbon Dioxide 36 mmol/L (20-31); Glucose 166 mg/dL (74-106)
[2024-06-11] MEDS: methylPREDNISolone SOD SUCC 125 MG/2 ML VL IV ONE (12:36)
[2024-06-11] MEDS: ALBUTEROL SULF 2.5 MG/0.5ML(0.5%) NEB SOLN NEB ONE (12:41)
[2024-06-11] MEDS: IPRATROPIUM BROM 0.5 MG/2.5ML INH SOL NEB ONE (12:41)
[2024-06-11] MEDS ORDERED: HYDROcodone-ACET 5/325MG TAB PO PRN (13:45)
[2024-06-11] MEDS ORDERED: ACETAMINOPHEN 325 MG TAB PO PRN (13:45)
[2024-06-11] MEDS ORDERED: DOCUSATE SOD 100 MG CAP PO PRN (13:45)
[2024-06-11] MEDS ORDERED: ONDANSETRON HCL 4 MG/2 ML VIAL IV PRN (13:45)
[2024-06-11] MEDS: methylPREDNISolone SOD SUCC 40 MG/ML VL IV SCH (14:00)
[2024-06-11] MEDS: SODIUM CHLOR 0.9% PF (SALINE LOCK) 10ML VIAL/SYR IV SCH (14:03)
[2024-06-11] MEDS: ASPirin 81 mg TAB PO ONE (14:08)
[2024-06-11] MEDS: ETOMIDATE (2MG/ML) 20ML VIAL IV ONE (14:44)
[2024-06-11] MEDS: MIDAZOLAM DRIP 50 mg/50mL 50 ML IV SCH (14:45)
[2024-06-11] MEDS: ROCURONIUM 10MG/ML 10ML VIAL IV ONE (14:45)
[2024-06-11 15:03] LABS: Urine Bacteria None Seen /hpf (None Seen)
[2024-06-11 15:21] LABS: Urine Blood 1+ /uL (Negative); Urine Clarity Clear (Clear); Urine Color Light-Yellow (Yellow); Urine Hyaline Cast FEW /lpf (0 - 2); Urine Protein, UAD Negative (Negative); Urine Specific Gravity 1.011 (1.001-1.035); Urine Squamous Epithelial Cell None Seen /hpf (<5); Urine Urobilinogen Normal (Negative); Urine WBC < 1 /HPF (0-3)
--- NOTE | 2024-06-11 15:37 | DVH ---
EXAM: XR Chest, 1 View CLINICAL INDICATION: sob TECHNIQUE: Frontal view of the chest. COMPARISON: XY CHEST PORTABLE on DOS: 06/11/24, XY CHEST PORTABLE on DOS: 06/04/24, XY CHEST PORTABLE on DOS: 06/03/24, XY CHEST XRAY 1 VIEW on DOS: 05/31/24, XY CHEST PORTABLE on DOS: 05/30/24 FINDINGS: LUNGS AND PLEURAL SPACES: Mild CHF.. No consolidation. No pneumothorax. HEART: Unremarkable. No cardiomegaly. MEDIASTINUM: Unremarkable. Normal mediastinal contour. BONES/JOINTS: Unremarkable. No acute fracture. TUBES, LINES AND DEVICES: ETT tip is at the karoline. Retraction by 2 cm recommended. Enteric tube tip in the stomach. OTHER FINDINGS: . . IMPRESSION: ETT tip is at the karoline. Retraction by 2 cm recommended.
--- NOTE | 2024-06-11 15:54 | DVHHP2 ---
History of Present Illness Reason for Visit: Acute respiratory failure History of Present Illness The patient is a 79-year-old male with past medical history of Coronary artery disease, COPD, NE, hyperlipidemia, and hypertension who [facility] with complaint of s hortness of breaths. Patient's condition progressively get worse with complaint of chest pain, increased work of breathing, SOB on exertion, SOB at rest, getting worse that he was fully intubated. Laboratory data shows WBC 12.2, platelets 105, sodium 142, potassium 3.8, BUN 30, creatinine 1.01, GFR 76, glucose 166, troponin 158, BNP 581.16, blood pressure 109/58, pulse 75, temperat ure 98.1 F, O2 saturation 92% on ventilator. Please see medication orders section in the computer. On my assessment, patient is fully intubated, no diaphoresis, no vomiting, no fever, no chills. Patient was admitted for further evaluation and medical management. Past Medical History CAD, COPD, High Lipids, HTN, NE Past Surgical History PTCA, Family History Reviewed, noncontributory to the management of this case. Past Social History The patient lives at assisted care living, quit smoking cigarettes greater than 1 year, drinks alcohol occasionally, denies illicit drugs abuse. Review of Systems Constitutional: Yes: Weakness; No: Fever, Chills, Sweats, Malaise, Other Eyes: No: Pain, Vision change, Conjunctivae inflammation, Eyelid inflammation, Other, Redness ENT: No: Ear pain, Ear discharge, Nose pain, Nose discharge, Nose congestion, Mouth pain, Mouth swelling, Throat pain, Throat swelling, Other Respiratory: Shortness of breath, SOB with excertion, Other (SOB at rest); No: Cough, Dry, Wheezing, Hemoptysis, Pleuritic Pain, Sputum, Wheezing Cardiovascular: Chest Pain; No: Palpitations, Orthopnea, Paroxysmal Noc. Dyspnea, Edema, Lt Headedness, Other Gastrointestinal: No: Nausea, Vomiting, Abdominal Pain, Diarrhea, Constipation, Melena, Hematochezia, Other Genitourinary: No Dysuria, No Frequency, No Incontinence, No Hematuria, No R etention, No Other Musculoskeletal: No: other, neck pain, shoulder pain, arm pain, back pain, hand pain, leg pain, foot pain Skin: No: Rash, Lesions, Jaundice, Bruising, Other Neurological: No: Weakness, Numbness, Incoordination, Change in speech, Confusion, Seizures, Other Allergies: Coded Allergies: Clopidogrel (Verified Allergy, Unknown, 02/11/19) Medications Current Medications Medications Dose Ordered Sig/Mindy Route Start Time Stop Time Status Last Admin Dose Admin Aspirin 81 mg DAILY PO 06/12/24 10:00 Atorvastatin Calcium 20 mg HS PO 06/11/24 22:00 Albuterol 2.5 mg Q4HPRN PRN NEB 06/11/24 13:45 Ipratropium [place] 0.5 mg Q4HPRN PRN NEB 06/11/24 13:45 Methylprednisolone Sodium Succinate 40 mg Q8HR IV 06/11/24 14:00 Famotidine 20 mg Q12HR IV 06/11/24 22:00 Sodium Chloride 10 ml Q8HR IV 06/11/24 14:00 06/11/24 14:03 10 ML Acetaminophen/ Hydrocodone Bitart 1 tab Q4HP PRN PO 06/11/24 13:45 Ondansetron HCl 4 mg Q4HP PRN IV 06/11/24 13:45 Docusate Sodium 100 mg BIDPRN PRN PO 06/11/24 13:45 Acetaminophen 650 mg Q6HP PRN PO 06/11/24 13:45 Midazolam HCl 50 ml @ 1 mls/hr Q24H IV 06/11/24 14:45 06/11/24 14:45 1 MLS/HR Exam Vital Signs Vital Signs Date Time Temp Pulse Resp B/P (MAP) Pulse Ox O2 Delivery O2 Flow Rate FiO2 06/11/24 15:30 124/83 06/11/24 15:15 98.8 86 18 90 98.8 06/11/24 15:03 100 06/11/24 14:00 8.0 06/11/24 12:41 Simple Mask* General Appearance: No acute distress, Other (Patient is fully intubated) HEENT: Atraumatic, PERRLA, EOMI, Mucous membr. moist/pink Respiratory: Normal air movement, Other (On ventilator) Cardiovascular: Regular rate, Normal S1, Normal S2, No murmurs Abdominal: Normal bowel sounds, Soft, No tenderness, No hepatospenomegaly, No masses Extremities: No clubbing, No cyanosis, No edema, Normal pulses, No tenderness/swelling Skin: No rashes, No breakdown, No significant lesion Neuro: Normal tone, Other (Generalized weakness) Psych/Mental Status: Other (Unobtainable) Labs/Xrays Labs Test 06/11/24 14:05 06/11/24 11:42 06/11/24 11:24 06/11/24 11:20 Range/Units B-Type Natriuretic Peptide 581.15 0-100 pg/mL White Blood Count 12.2 #H 4.4-10.8 10^3/uL Red Blood Count 4.20 L 4.5-5.90 10^6/uL Hemoglobin 13.1 L 13.5-17.5 g/dL Hematocrit 40.3 L 41.0-53.0 % Mean Corpuscular Volume 95.9 # 80.0-100.0 fL Mean Corpuscular Hemoglobin 31.2 28.0-32.0 pg Mean Corpuscular Hemoglobin Concent 32.5 32.0-36.0 g/dL Red Cell Distribution Width 14.6 H 11.8-14.3 % Platelet Count 105 L 140-450 10^3/uL Mean Platelet Volume 9.9 6.9-10.8 fL Neutrophils (%) (Auto) 93.1 H 37.0-80.0 % Lymphocytes (%) (Auto) 2.2 L 10.0-50.0 % Monocytes (%) (Auto) 4.6 0.0-12.0 % Eosinophils (%) (Auto) 0.0 0.0-7.0 % Basophils (%) (Auto) 0.1 0.0-2.0 % Neutrophils # (Auto) 11.4 H 1.6-8.6 10 ^3/uL Lymphocytes # (Auto) 0.3 L 0.4-5.4 10 ^3/uL Monocytes # (Auto) 0.6 0-1.3 10 ^3/uL Eosinophils # (Auto) 0 0-0.8 10 ^3/uL Basophils # (Auto) 0 0-0.2 10 ^3/uL Nucleated Red Blood Cells 0.0 % Sodium Level 142 136-145 mmol/L Potassium Level 3.8 3.5-5.1 mmol/L Chloride Level 100 98-107 mmol/L Carbon Dioxide Level 36 H 20-31 mmol/L Anion Gap 6 5-15 Blood Urea Nitrogen 30 H 9-23 mg/dL Creatinine 1.01 0.700-1.30 mg/dL Glomerular Filtration Rate Calc 76 >90 mL/min BUN/Creatinine Ratio 29.7 H 10.0-20.0 Serum Glucose 166 H 74-106 mg/dL Calcium Level 8.5 L 8.7-10.4 mg/dL Troponin I High Sensitivity 158 *H </=54 ng/L Urine Color Light-yellow Yellow Urine Clarity Clear Clear Urine pH 6.0 5.0-9.0 Urine Specific [place] 1.011 1.001-1.035 Urine Protein Negative Negative Urine Ketones Negative Negative Urine Blood 1+ H Negative /uL Urine Nitrite Negative Negative Urine Bilirubin Negative Negative Urine Urobilinogen Normal Negative mg/dL Urine Leukocyte Esterase Negative Negative /uL Urine RBC 1 0 - 3 /hpf Urine Microscopic WBC < 1 0-3 /HPF Urine Squamous Epithelial Cells None seen <5 /hpf Urine Bacteria None seen None Seen /hpf Urine Hyaline Casts Few 0 - 2 /lpf Urine Glucose 1+ H Normal mg/dL Blood Gas Specimen Type Arterial Blood Gas Sample Site Right radial Blood Gas Patient Temperature 37.0 Arterial Blood Date Drawn [id number] Arterial Blood pH 7.441 7.350-7.450 Arterial Blood Partial Pressure CO2 48.8 H 35.0-48.0 mmHg Arterial Blood Partial Pressure O2 57.3 L 83.0-108.0 mmHg Arterial Blood HCO3 32.5 H 21.0-28.0 mmol/L Arterial Blood Oxygen Saturation 88.5 L 94.0-98.0 % Arterial Blood Base Excess 7.1 H -2.0-3.0 mmol/L Arterial Blood Oxyhemoglobin 87.5 L 94.0-98.0 % Arterial Blood Carboxyhemoglobin 0.8 0.5-1.5 % Arterial Blood Methemoglobin 0.3 0.0-1.5 % Jun Test Yes Blood Gas Total Hemoglobin 13.20 L 13.5-17.5 g/dL Blood Gas Liter Flow 6.00 Blood Gas Modality Nasal cannula FiO2 % 44.0 PATIENT: PHYLICIA MELTONACCT: [id number] UNIT: [id number] : 1945 LOC: ER ROOM / BED: / AGE / SEX: 79 / M ADM STATUS: REG ER SERVICE [id number] ORDERING PHYSICIAN: JOSE JUAN ENCISO MD PROCEDURE(s): CXRP - CHEST PORTABLE REASON: sob ORDER NUMBER(s): [id number], ACCESSION NUMBER(s): [id number] CHEST RADIOGRAPH Indication: sob Technique: Single frontal view of the chest was obtained COMPARISON: XY CHEST PORTABLE on DOS: 06/04/24, XY CHEST PORTABLE on DOS: 06/03/24, XY CHEST XRAY 1 VIEW on DOS: 05/31/24, XY CHEST PORTABLE on DOS: 05/30/24, XY CHEST PORTABLE on DOS: 05/29/24 FINDINGS: Lines and Tubes: None Lungs: Congestion Pleura: No effusion. No pneumothorax. Cardiomediastinal contours: Cardiomegaly Bones: Unremarkable IMPRESSION: Congestion. Cardiomegaly. ORDERING PHYSICIAN: JOSE JUAN ENCISO MD PROCEDURE(s): CXRP - CHEST PORTABLE REASON: sob ORDER NUMBER(s): [id number], ACCESSION NUMBER(s): [id number] EXAM: XR Chest, 1 View CLINICAL INDICATION: sob TECHNIQUE: Frontal view of the chest. COMPARISON: XY CHEST PORTABLE on DOS: 06/11/24, XY CHEST PORTABLE on DOS: 06/04/24, XY CHEST PORTABLE on DOS: 06/03/24, XY CHEST XRAY 1 VIEW on DOS: 05/31/24, XY CHEST PORTABLE on DOS: 05/30/24 FINDINGS: LUNGS AND PLEURAL SPACES: Mild CHF. No consolidation. No pneumothorax. HEART: Unremarkable. No cardiomegaly. MEDIASTINUM: Unremarkable. Normal mediastinal contour. BONES/JOINTS: Unremarkable. No acute fracture. TUBES, LINES AND DEVICES: ETT tip is at the karoline. Retraction by 2 cm recommended. Enteric tube tip in the stomach. OTHER FINDINGS: IMPRESSION: ETT tip is at the karoline. Retraction by 2 cm recommended. Assessment/Plan Assessment/Plan Acute respiratory failure Acute respiratory failure with hypoxia COPD with acute exacerbation Elevated troponin Anxiety Hyperglycemia Leukocytosis, unspecified Acute on chronic diastolic (congestive) heart failure Plan 1. Admit to intensive care unit 2. Breathing treatment 3. Pain control management 4. IV antibiotic management 5. Management of fluids and electrolytes 6. Consultation for cardiology/pulmonology 7. Diagnostic test chest x-ray 8. DVT prophylaxis on SCDs 9. Repeat labs CBC, CMP in a.m. 10. Home medication reviewed and reconciled 11. Continue with current medical management 12. Treatment plan discussed with patient and RN. Patient patient is fully intubated. Plan discussed with: Patient, Other (RN) My Orders Orders - KEHINDE KEY DNP Procedure Category Date Status Time Aspirin Tablet PHA 06/12/24 In Process 10:00 Atorvastatin (Lipitor) PHA 06/11/24 In Process 22:00 Albuterol Medneb PHA 06/11/24 In Process (Ventolin Medneb) 13:45 Ipratropium Medneb PHA 06/11/24 In Process (Atrovent Medneb) 13:45 Methylprednisolone PHA 06/11/24 In Process Sod Succ (Solu Medrol 14:00 Famotidine Injection PHA 06/11/24 In Process (Pepcid Injection) 22:00 Allergies CARLOS 06/11/24 In Process 13:45 Code Status CODE 06/11/24 Transmitted 13:45 Sodium Chloride Lock PHA 06/11/24 In Process (Saline Lock Ns) 14:00 Oxygen Per Hour RT 06/11/24 Transmitted 13:45 Hydrocodone-Acet PHA 06/11/24 In Process 5/325mg Tab ([place] 13:45 Ondansetron Hcl PHA 06/11/24 In Process (Zofran) 13:45 Docusate Sodium PHA 06/11/24 In Process Capsule (Colace 13:45 Complete Blood Count LAB 06/12/24 Verified 04:00 Comprehensive LAB 06/12/24 Verified Metabolic Panel 04:00 Cardiac DIET 06/11/24 Transmitted Diet-2gna,Lofat,Lochol Dinner Condition: Serious CARLOS 06/11/24 In Process 13:45 Acetaminophen Tablet PHA 06/11/24 In Process (Tylenol Tablet) 13:45 Bedrest With Bathroom CARLOS 06/11/24 In Process Privileg 13:45 Sequential CARLOS 06/11/24 In Process Compression Device Ventilator Orders RT 06/11/24 Transmitted 15:00 Respiratory Culture ANTHONY 06/11/24 In Process W/ Gs 15:00 Abg W/ Co-Ox RT 06/11/24 Logged 16:00 Admit ADMIT 06/11/24 Transmitted 15:53 Nitroglycerin PHA 06/11/24 Transmitted Sublingual (Ntrostat 16:00 Morphine Sulfate PHA 06/11/24 Transmitted Injection 16:00 Notify Of Changes CARLOS 06/11/24 Transmitted From Base 15:53 Tile Molder For [facility] 06/11/24 Transmitted 24 Hours 15:53 Emergency Dysrhythmia [facility] 06/11/24 Transmitted Protocol 15:53 Rhythm Strips Once [facility] 06/11/24 Transmitted Every Shift 15:53 Oxygen By Nasal RT 06/11/24 Transmitted Cannula 15:53 Problem List: (1) Acute respiratory failure (2) Acute respiratory failure with hypoxia (3) Elevated troponin (4) Anxiety (5) COPD with acute exacerbation (6) Leukocytosis, unspecified (7) Hyperglycemia (8) Acute on chronic diastolic (congestive) heart failure Date of Service: Jun 11, 2024 Billing Provider: KEHINDE KEY DNP Common Visit Codes: [id number] INP/OBS CARE (HIGH) KEHINDE KEY DNP Jun 11, 2024 15:54
[2024-06-11 15:57] LABS: Base Excess 8.2 mmol/L (-2.0-3.0)
[2024-06-11] MEDS ORDERED: MORPHINE SULFATE INJ 2 MG/ml SYRG IV PRN (16:00)
[2024-06-11] MEDS ORDERED: NITROGLYCERIN 0.4 MG SL TAB SL PRN (16:00)
--- NOTE | 2024-06-11 16:11 | DVHNC2 ---
Intubation Indication: Altered Mental Status, Airway Protection Prep: Preoxygenation Pretreated with: Sedation Medicated with: Other (Rocuronium) Intubation size: cm (8) Informed consent obtained: Yes Risks/benefits/alt described: Yes UTO Consent Completed ET intubation supervised by Dr Enciso Date of Service: Jun 11, 2024 Billing Provider: JOSE JUAN ENCISO MD Common Visit Codes: PROCEDURE ONLY Procedure Codes: [id number] ZACHARIAH JUDGE RESIDENT Jun 11, 2024 16:11
[2024-06-11] MEDS: fentaNYL Drip 2500mCg/250mlNS 250 ML IV ONE (16:23)
[2024-06-11] MEDS: fentaNYL Drip 2500mCg/250mlNS 250 ML IV SCH (16:25)
[2024-06-11] MEDS: NOREPINEPHRINE 8 MG/250ML KIT 250 ML IV SCH (17:15)
--- NOTE | 2024-06-11 18:31 | DVHNC2 ---
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) Indication: Hypotension, CVP monitoring, Volume resuscitation Room prepared for procedure: Yes Hr Recruiter performed hand hygien: Yes Maximal sterile barrier precau: Mask/Eye shield, Sterile gown, Cap, Sterlie gloves, Large sterlie drape Skin Preparation: Chlorhexidine gluconate Skin preparation completely dr: Yes Insertion site: Right, Internal jugular, Line secured Central line catheter type: [id number] dialysis Number of lumens: 3 Central line exchanged over a: No Antiseptic ointment applied to: Yes Post Assessment: Chest X-Ray, No Pneumothorax Informed consent obtained: Yes Risks/benefits/alt described: Yes UTO Consent Procedure completed under the supervision of Dr Claire. Date of Service: Jun 11, 2024 Billing Provider: RYAN CLAIRE MD Common Visit Codes: PROCEDURE ONLY Procedure Codes: [id number] NON-TUNNEL CV CATH ZACHARIAH JUDGE RESIDENT Jun 11, 2024 18:31 RYAN CLAIRE MD Jun 11, 2024 20:28
--- NOTE | 2024-06-11 18:45 | DVH ---
CHEST RADIOGRAPH Indication: CENTRAL LINE PLACEMENT Technique: Single frontal view of the chest was obtained Comparison: XY CHEST PORTABLE on DOS: 06/11/24, XY CHEST PORTABLE on DOS: 06/11/24, XY CHEST PORTABLE on DOS: 06/04/24 FINDINGS: Lines and Tubes: Tube terminates about 0.6 cm above the karoline. Enteric tube side port is slightly be low the GE junction. Right IJ approach central venous catheter is in satisfactory position. Lungs: No focal consolidation. Bronchovascular crowding due to low lung volumes with mild interstitia l prominence. Pleura: No effusion. No pneumothorax. Cardiomediastinal contours: Mild cardiomegaly with mild atherosclerotic calcification and uncoiling o f the aorta. Bones: No acute osseous abnormality. IMPRESSION: Endotracheal tube terminates about 0.6 cm above the karoline. Recommend pulling back about 3 cm . Enteric tube side port is slightly below the GE junction. Recommend advancing about 4 cm for more opt imal positioning. Right IJ approach central venous catheter is in satisfactory position. Bronchovascular crowding due to low lung volumes. Underlying pulmonary vascular congestion can not b e excluded. Critical Result: Tube adjustment Findings discussed with KEHINDE KEY at 06/11/2024 06:42 PM, and acknowledged receipt and understan ding of the findings. ..
--- NOTE | 2024-06-11 18:59 | DVHINCON2 ---
Date of service: Jun 11, 2024 Referring Physician Jhonny Blackwell NP Reason for Consultation Vent management History of Present Illness 79-year-old man history of CAD, COPD, myocardial infarction, hyperlipidemia, hypertension who presented with shortness of breath. He was emergently intubated and placed on mechanical ventilator due to increased work of breathing and hypercarbia and hypoxia. Pulmonary consultation is called due to acute hypoxic respiratory failure on mechanical ventilator management. Of note this patient was known to me from my private practice. Review of systems: Unable to obtain due to patient's critical condition. Past medical history: CAD, COPD, hyperlipidemia, hypertension, myocardial infarction Past surgical history: CAD status post PTCA Medications: Reviewed Allergies: Plavix Family history: No family history of premature CAD. No family history of lung disease Social history: Lives in assisted care living. Quit smoking cigarettes one year ago. Social alcohol use. Denies any illicit drug use. Allergies: Coded Allergies: Clopidogrel (Verified Allergy, Unknown, 02/11/19) Home Meds Reported Medications Ipratropium-Albuterol (COMBIVENT RESPIMAT) Respimat Aer, 1 PUFF IN Q4-6HR PRN for 40 Days, #8 05/24/24 Montelukast Sodium (MONTELUKAST SODIUM) 10 Mg Tab, 1 TAB PO DAILY for 30 Days, #30 05/24/24 Dupilumab (Dupixent) 300 Mg/2 Ml Inj, 300 MG SC EVERY 2 WEEKS for 28 Days, #4 05/24/24 Gbzfekiish-Bzvmoqqcftzdiq-Cshd (Breztri Aerosphere 160-9-4.8 Mcg/Act) 1 Aer Aer, 2 PUFF IN BID for 30 Days, #10.7 05/24/24 Prednisone (Prednisone) 10 Mg Tab, 1 TAB PO DAILY for 30 Days, #30 05/24/24 Sacubitril-Valsartan (Entresto 24-26 mg) 1 Tab Tab, 1 TAB PO BID for 90 Days, #180 05/22/24 Tamsulosin Hcl (Tamsulosin Hcl) 0.4 Mg Cap, 1 CAP PO DAILY for 90 Days, #90 05/22/24 Atorvastatin Calcium (ATORVASTATIN CALCIUM) 40 Mg Tab, 1 TAB PO DAILY for 90 Days, #90 05/22/24 Carvedilol (Carvedilol) 12.5 Mg Tab, 1 TAB PO BID for 90 Days, #180 05/22/24 Current Medications Current Medications Medications (Trade) Dose Ordered Sig/Mindy Route PRN Reason Start Time Stop Time Status Last Admin Aspirin 81 mg DAILY PO 06/12/24 10:00 Atorvastatin Calcium (Lipitor) 20 mg HS PO 06/11/24 22:00 Albuterol (Ventolin Medneb) 2.5 mg Q4HPRN PRN NEB SHORTNESS OF BREATH 06/11/24 13:45 Ipratropium [place] (Atrovent Medneb) 0.5 mg Q4HPRN PRN NEB SHORTNESS OF BREATH 06/11/24 13:45 Methylprednisolone Sodium Succinate (Solu Medrol) 40 mg Q8HR IV 06/11/24 14:00 Famotidine (Pepcid Injection) 20 mg Q12HR IV 06/11/24 22:00 Sodium Chloride (Saline Lock Ns) 10 ml Q8HR IV 06/11/24 14:00 06/11/24 14:03 Acetaminophen/ Hydrocodone Bitart (Casey 5/325MG Tab) 1 tab Q4HP PRN PO MODERATE PAIN (4-6 PAIN SCALE) 06/11/24 13:45 Ondansetron HCl (Zofran) 4 mg Q4HP PRN IV NAUSEA / VOMITING 06/11/24 13:45 Docusate Sodium (Colace Capsule) 100 mg BIDPRN PRN PO FOR CONSTIPATION 06/11/24 13:45 Acetaminophen (Tylenol Tablet) 650 mg Q6HP PRN PO PAIN SCALE 1-3 OR TEMP>100.4 06/11/24 13:45 Midazolam HCl 50 ml @ 1 mls/hr Q24H IV 06/11/24 14:45 06/11/24 18:12 Nitroglycerin (Ntrostat Sublingual) 0.4 mg Q5MINP PRN SL FOR CHEST PAIN 06/11/24 16:00 Morphine Sulfate 2 mg Q30M PRN IV FOR CHEST PAIN 06/11/24 16:00 Norepinephrine Bitartrate 250 ml @ 3.75 mls/hr Q24H IV 06/11/24 16:15 06/11/24 17:15 Fentanyl Citrate 250 ml @ 2.5 mls/hr Q24H IV 06/11/24 16:15 06/11/24 16:25 Furosemide (Lasix Injection) 20 mg DAILY IV 06/12/24 10:00 Vital Signs Vital Signs Date Time Temp Pulse Resp B/P (MAP) Pulse Ox O2 Delivery O2 Flow Rate FiO2 06/11/24 18:45 109/66 06/11/24 18:15 99.0 69 17 100 99.0 06/11/24 17:07 60 06/11/24 14:00 8.0 06/11/24 12:41 Simple Mask* Physical Exam Gen.: Patient lying in bed in medical ICU. Sedated, intubated on mechanical ventilator. Head: Normocephalic, atraumatic. Eyes: PERRLA. Ears: Normal external anatomy. Throat: Endotracheal tube and orogastric tube in place. Neck: Supple, trachea midline. Chest: Transmitted breath sounds bilaterally. Decreased air entry bilaterally. No wheezing. Bibasilar crackles. Cardio vascular: Positive S1, positive S2. Regular rate and rhythm. Abdomen: Positive bowel sounds in all 4 quadrants. Soft, nontender, nondistended. : Aguero in place. Normal external genitalia. Rectal: Deferred Skin: Warm, dry. Intact. Extremities: 2+ radial pulses bilaterally. No lower extremity edema. Neuro: Sedated. Labs/Diagnostic Data Labs Test 06/11/24 15:50 06/11/24 14:05 06/11/24 11:42 06/11/24 11:24 Range/Units Blood Gas Specimen Type Arterial Blood Gas Sample Site Right radial Blood Gas Patient Temperature 37.0 Arterial Blood Date Drawn [id number] Arterial Blood pH 7.500 H 7.350-7.450 Arterial Blood Partial Pressure CO2 42.3 35.0-48.0 mmHg Arterial Blood Partial Pressure O2 274.3 H 83.0-108.0 mmHg Arterial Blood HCO3 32.2 H 21.0-28.0 mmol/L Arterial Blood Oxygen Saturation 99.4 H 94.0-98.0 % Arterial Blood Base Excess 8.2 H -2.0-3.0 mmol/L Arterial Blood Oxyhemoglobin 98.3 H 94.0-98.0 % Arterial Blood Carboxyhemoglobin 0.5 0.5-1.5 % Arterial Blood Methemoglobin 0.6 0.0-1.5 % Jun Test Modified Blood Gas Total Hemoglobin 12.90 L 13.5-17.5 g/dL Blood Gas Set Respiration Rate 18.0 Blood Gas Modality Vent - ac FiO2 % 100.0 Blood Gas Tidal Volume 500.0 Blood Gas PEEP or CPAP 5.0 B-Type Natriuretic Peptide 581.15 0-100 pg/mL White Blood Count 12.2 #H 4.4-10.8 10^3/uL Red Blood Count 4.20 L 4.5-5.90 10^6/uL Hemoglobin 13.1 L 13.5-17.5 g/dL Hematocrit 40.3 L 41.0-53.0 % Mean Corpuscular Volume 95.9 # 80.0-100.0 fL Mean Corpuscular Hemoglobin 31.2 28.0-32.0 pg Mean Corpuscular Hemoglobin Concent 32.5 32.0-36.0 g/dL Red Cell Distribution Width 14.6 H 11.8-14.3 % Platelet Count 105 L 140-450 10^3/uL Mean Platelet Volume 9.9 6.9-10.8 fL Neutrophils (%) (Auto) 93.1 H 37.0-80.0 % Lymphocytes (%) (Auto) 2.2 L 10.0-50.0 % Monocytes (%) (Auto) 4.6 0.0-12.0 % Eosinophils (%) (Auto) 0.0 0.0-7.0 % Basophils (%) (Auto) 0.1 0.0-2.0 % Neutrophils # (Auto) 11.4 H 1.6-8.6 10 ^3/uL Lymphocytes # (Auto) 0.3 L 0.4-5.4 10 ^3/uL Monocytes # (Auto) 0.6 0-1.3 10 ^3/uL Eosinophils # (Auto) 0 0-0.8 10 ^3/uL Basophils # (Auto) 0 0-0.2 10 ^3/uL Nucleated Red Blood Cells 0.0 % Sodium Level 142 136-145 mmol/L Potassium Level 3.8 3.5-5.1 mmol/L Chloride Level 100 98-107 mmol/L Carbon Dioxide Level 36 H 20-31 mmol/L Anion Gap 6 5-15 Blood Urea Nitrogen 30 H 9-23 mg/dL Creatinine 1.01 0.700-1.30 mg/dL Glomerular Filtration Rate Calc 76 >90 mL/min BUN/Creatinine Ratio 29.7 H 10.0-20.0 Serum Glucose 166 H 74-106 mg/dL Calcium Level 8.5 L 8.7-10.4 mg/dL Troponin I High Sensitivity 158 *H </=54 ng/L Urine Color Light-yellow Yellow Urine Clarity Clear Clear Urine pH 6.0 5.0-9.0 Urine Specific Reading 1.011 1.001-1.035 Urine Protein Negative Negative Urine Ketones Negative Negative Urine Blood 1+ H Negative /uL Urine Nitrite Negative Negative Urine Bilirubin Negative Negative Urine Urobilinogen Normal Negative mg/dL Urine Leukocyte Esterase Negative Negative /uL Urine RBC 1 0 - 3 /hpf Urine Microscopic WBC < 1 0-3 /HPF Urine Squamous Epithelial Cells None seen <5 /hpf Urine Bacteria None seen None Seen /hpf Urine Hyaline Casts Few 0 - 2 /lpf Urine Glucose 1+ H Normal mg/dL Test 06/11/24 11:20 Range/Units Blood Gas Liter Flow 6.00 Assessment Impression: Acute on chronic hypoxic respiratory failure On mechanical ventilator Acute exacerbation of COPD Morbid obesity Shock, hypovolemic versus sepsis Hemoptysis Elevated troponin Pulmonary vascular congestion Plan: s/p intubation on mechanical ventilator CXR image and report reviewed. ET tube at the level of the karoline. It was placed during bronchoscopy approximately 2 cm above the karoline. ABG reviewed. Alkalemia Decrease tidal volume to 450 mL Currently on respiratory rate of 18, tidal volume 450, peep of five, FiO2 at 40%. Titrate FIO2 to keep O2 saturation above 92%. VAP bundle Daily ABG and CXR while intubated. Sedate for ventilatory synchrony On pressors for hemodynamic support. On Levophed at 6 micrograms/minute. Titrate to keep MAP above 65 mmHg/SBP above 90 mmHg. Elevated troponin Follow up Cardiology recommendations Continue antibiotics. F/u cultures. Follow up left lower lobe BAL Monitor renal function due to Acute kidney injury. Monitor electrolytes. Supplement as necessary. Monitor ins and outs Nutritional support. Start tube feeds Accucheks, ISS. GI/DVT prophylaxis. Condition: Critical Prognosis: Poor given multiple comorbidities. Rest of plan per hospitalist and other consultants. A total of 40 minutes of critical care time was spent reviewing the patient record, examining the patient, making a diagnostic and therapeutic plan, discussing this plan with the medical personnel, following up on diagnostic studies and following the patient for clinical stability excluding any and all procedures. At least 50% of this time was spent in direct, [id number] contact. Thank you RAFA Blackwell for allowing me to participate in this patient's care. Further recommendations will depend on patient's clinical course. Please do not hesitate to contact me if you have any questions or concerns. This medical document was created using an electronic medical record system with [employer] dictation system. Although this document has been carefully reviewed, there may still be some phonetic and typographical errors. These areas are purely typographical due to imperfections of the software programs, and do not reflect any compromise in the patient's medical care. Plan discussed with: Daughter, Other (MALICK Baldwin, RT, MD) RYAN ROMERO MD Jun 11, 2024 18:59
--- NOTE | 2024-06-11 19:00 | DVHNC2 ---
Procedure - Bronchoscopy procedure note: Indications: Left lower lobe atelectasis, Possible mucous plugging. Medicines: See [employer] notes. Complications: None Procedure: Patient medications and allergies reviewed. The risks and benefits of the procedure and the sedation options and risk were discussed with the patient's healthcare proxy. All questions were answered and informed consent was obtained. Patient identification and proposed procedure were verified prior to the procedure by the physician, and a nurse, and the respiratory therapist in ICU room. The heart rate, respiratory rate, oxygen saturations, blood pressure, adequacy of pulmonary ventilation, and response to care were monitored throughout the procedure. The physical status of the patient was reassessed after the procedure. After obtaining informed consent, the bronchoscope was introduced through the endotracheal tube and advanced into the trachea bronchial tree of both lungs. The procedure was accomplished without difficulty. The patient tolerated the procedure well. Findings: The trachea is in normal caliber. The karoline is sharp. The tracheobronchial tree of the right lung was examined to at least the first subsegmental level. The bronchial mucosa and anatomy in the right lung are normal. There are no endobronchial lesions. There was scant frothy secretions throughout right lung field. Left lower lobe (RML) Bronchoalveolar lavage (BAL) obtained. LLL BAL sent for gram stain and culture and fungal culture. The left upper lobe, lingula, and left lower lobe were examined to at least the first subsegmental level. Bronchial mucosa and anatomy in the left upper lobe and lingula are normal. There were no endobronchial lesions. There was copious whitish secretions from left main stem bronchus onward throughout L1-L10. Mucous plugging removed from L6-L10. There was no active bleeding at the completion of the procedure. Estimated blood loss: Less than 5 mL. Impression: Left lower lobe atelectasis due to mucous plugging Mucous plugging from L6-L10 Left Lower Lobe BAL performed Recommendation: Follow-up RML BAL results. Procedure codes: 64662, bronchoscopy, rigid and flexible, including fluoroscopic guidance, one performed; with bronchial endobronchial broncho-alveolar lavage, single or multiple sites RYAN ROMERO MD Jun 11, 2024 19:00
--- NOTE | 2024-06-11 20:39 | DVH ---
CHEST RADIOGRAPH Indication: Repositioned ET tube Technique: Single frontal view of the chest was obtained Comparison: XY CHEST PORTABLE on DOS: 06/11/24, XY CHEST PORTABLE on DOS: 06/11/24, XY CHEST PORTABLE on DOS: 06/11/24 FINDINGS: Lines and Tubes: ENDOTRACHEAL TUBE IN PLACE 2.5 CM ABOVE THE KAROLINE. RIGHT INTERNAL JUGULAR CATHETER IN PLACE IN SUPERIOR VENA CAVA. ENTERIC TUBE IN IN THE THORACIC ESOPHAGUS LEFT DIAPHRAGM NOT VISUALIZ ED THEREFORE THE TIP OF THE ENTERIC TUBE IS NOT VISIBLE. Lungs: No focal consolidation. Pleura: No effusion. No pneumothorax. Cardiomediastinal contours: Unremarkable Bones: No acute osseous abnormality. IMPRESSION: 1. Endotracheal tube in place 2.5 cm above the karoline. 2. Right internal jugular catheter in place in superior vena cava. 3. Enteric tube noted in the distal thoracic esophagus however since the left diaphragm is not visual ized can not visualize the enteric tube tip.
[2024-06-11] MEDS: FAMOTIDINE (10MG/ML) 2ML VL IV SCH (21:35)
[2024-06-11] MEDS: ATORVASTATIN 20 MG TAB PO SCH (21:35)
[2024-06-12] VITALS (59 sets, daily range): BP systolic 86–126; BP diastolic 57–85; PULSE 52–76; RESP 17–20; TEMP 97.9–98.2; O2SAT 92–100
[2024-06-12 05:30] LABS: Basophils # (auto) 0 10 ^3/uL (0-0.2); Basophils % (auto) 0.5 % (0.0-2.0); Eosinophils # (auto) 0 10 ^3/uL (0-0.8); Hematocrit 34.6 % (41.0-53.0); Hemoglobin 11.8 g/dL (13.5-17.5); Lymphocytes # (auto) 0.5 10 ^3/uL (0.4-5.4); Lymphocytes % (auto) 5.5 % (10.0-50.0); Mean Corpuscular Volume 91.2 fL (80.0-100.0); Monocytes # (auto) 0.3 10 ^3/uL (0-1.3); Nucleated Red Blood Cells % 0.1 %; Platelet Count (auto) 101 10^3/uL (140-450); Red Cell Distribution Width 13.9 % (11.8-14.3); White Blood Cell 8.8 10^3/uL (4.4-10.8)
[2024-06-12 05:55] LABS: Alkaline Phosphatase 69 U/L (46-116); Anion Gap 13 (5-15); BUN/Creatinine Ratio 30.2 (10.0-20.0); Carbon Dioxide 30 mmol/L (20-31); Chloride 100 mmol/L (98-107); Sodium 143 mmol/L (136-145)
[2024-06-12 05:57] LABS: Aspartate Aminotransferase 40 U/L (13-40)
[2024-06-12 06:21] LABS: Base Excess 5.6 mmol/L (-2.0-3.0)
[2024-06-12 06:25] LABS: Alanine Aminotransferase 40 U/L (7-40); Albumin 2.7 g/dL (3.2-4.8); Bilirubin, Total 1.7 mg/dL (0.2-1.0); Blood Urea Nitrogen 39 mg/dL (9-23); Calcium 8.6 mg/dL (8.7-10.4); Glucose 243 mg/dL (74-106); Potassium 3.3 mmol/L (3.5-5.1); Total Protein 4.4 g/dL (5.7-8.2)
--- NOTE | 2024-06-12 09:05 | DVH ---
EXAM: XY CHEST PORTABLE Indication: INTUBATED Technique: Single frontal view of the chest was obtained Comparison: XY CHEST XRAY 1 VIEW on DOS: 06/11/24, XY CHEST PORTABLE on DOS: 06/11/24, XY CHEST PORTABLE on DOS: 06/11/24, XY CHEST PORTABLE on DOS: 06/11/24, XY CHEST PORTABLE on DOS: 06/04/24, XY CHEST XRAY 1 VIEW on DOS: 06/11/24 FINDINGS: Lines and Tubes: Endotracheal tube projects 2 cm above level the karoline. Right internal jugular cent ral venous catheter tip projects over the superior vena cava. Enteric tube tip projects over the expe cted region of the stomach. Lungs: No focal consolidation. Pleura: No effusion. No pneumothorax. Cardiomediastinal contours: Unremarkable Bones: No acute osseous abnormality. IMPRESSION: No significant change compared to prior exam.
--- NOTE | 2024-06-12 11:09 | DVHINCON2 ---
Date Seen: Jun 12, 2024 Referring Physician RAFA Blackwell Reason for Consultation Hypotension History of Present Illness This is a 79-year-old male who presented to the emergency room via EMS from [facility] with a chief complaint of shortness of breath for approximately 2 hours prior to arrival. At time of assessment, the patient was found mechanically ventilated with 30% FiO2, off vasopressors, and off sedation. Per daughter at bedside, the patient experienced increased respiratory distress associated with accessory muscle use and O2 sats in the 90s%. He was subsequently endotracheally intubated in the emergency room. A 12 lead electrocardiogram revealed a sinus rhythm. Baseline troponin level is 158 ng/L. The patient follows up in the outpatient setting with primary marketing programs specialist Dr. Alston. Significant medical history includes coronary artery disease status post PTCA including 2 CORDELIA at [facility] on 2017 status post in-stent restenosis repair at [facility] on 04/2023 (on ASA), hypertension, dyslipidemia, oma-mnnhqqg-gxjhdjbhm diabetes mellitus, COPD, asthma, obstructive sleep apnea, benign prostatic hyperplasia, 58 pack-year remote history of tobacco use, and obesity. Past Medical History Past medical history reviewed. No other significant than mentioned above. Past Surgical History PTCA x2 CORDELIA, 2018 In-stent restenosis repair, 04/2023 Family History Family history reviewed. Social History 58 pack-year history of tobacco use, quit approximately 8 years ago. Allergies: Coded Allergies: Clopidogrel (Verified Allergy, Unknown, 02/11/19) Home Meds Reported Medications Ipratropium-Albuterol (COMBIVENT RESPIMAT) Respimat Aer, 1 PUFF IN Q4-6HR PRN for 40 Days, #8 05/24/24 Montelukast Sodium (MONTELUKAST SODIUM) 10 Mg Tab, 1 TAB PO DAILY for 30 Days, #30 05/24/24 Dupilumab (Dupixent) 300 Mg/2 Ml Inj, 300 MG SC EVERY 2 WEEKS for 28 Days, #4 05/24/24 Cemasmzsfc-Vypehvgvbfggzw-Pkan (Breztri Aerosphere 160-9-4.8 Mcg/Act) 1 Aer Aer, 2 PUFF IN BID for 30 Days, #10.7 05/24/24 Prednisone (Prednisone) 10 Mg Tab, 1 TAB PO DAILY for 30 Days, #30 05/24/24 Sacubitril-Valsartan (Entresto 24-26 mg) 1 Tab Tab, 1 TAB PO BID for 90 Days, #180 05/22/24 Tamsulosin Hcl (Tamsulosin Hcl) 0.4 Mg Cap, 1 CAP PO DAILY for 90 Days, #90 05/22/24 Atorvastatin Calcium (ATORVASTATIN CALCIUM) 40 Mg Tab, 1 TAB PO DAILY for 90 Days, #90 05/22/24 Carvedilol (Carvedilol) 12.5 Mg Tab, 1 TAB PO BID for 90 Days, #180 05/22/24 Home Meds Home medications reviewed. Current Medications Current Medications Medications (Trade) Dose Ordered Sig/Mindy Route PRN Reason Start Time Stop Time Status Last Admin Aspirin 81 mg DAILY PO 06/12/24 10:00 Atorvastatin Calcium (Lipitor) 20 mg HS PO 06/11/24 22:00 06/11/24 21:35 Albuterol (Ventolin Medneb) 2.5 mg Q4HPRN PRN NEB SHORTNESS OF BREATH 06/11/24 13:45 Ipratropium Velva (Atrovent Medneb) 0.5 mg Q4HPRN PRN NEB SHORTNESS OF BREATH 06/11/24 13:45 Methylprednisolone Sodium Succinate (Solu Medrol) 40 mg Q8HR IV 06/11/24 14:00 06/12/24 06:00 Famotidine (Pepcid Injection) 20 mg Q12HR IV 06/11/24 22:00 06/11/24 21:35 Sodium Chloride (Saline Lock Ns) 10 ml Q8HR IV 06/11/24 14:00 06/12/24 06:00 Acetaminophen/ Hydrocodone Bitart (Spring 5/325MG Tab) 1 tab Q4HP PRN PO MODERATE PAIN (4-6 PAIN SCALE) 06/11/24 13:45 Ondansetron HCl (Zofran) 4 mg Q4HP PRN IV NAUSEA / VOMITING 06/11/24 13:45 Docusate Sodium (Colace Capsule) 100 mg BIDPRN PRN PO FOR CONSTIPATION 06/11/24 13:45 Acetaminophen (Tylenol Tablet) 650 mg Q6HP PRN PO PAIN SCALE 1-3 OR TEMP>100.4 06/11/24 13:45 Midazolam HCl 50 ml @ 1 mls/hr Q24H IV 06/11/24 14:45 06/11/24 18:12 Nitroglycerin (Ntrostat Sublingual) 0.4 mg Q5MINP PRN SL FOR CHEST PAIN 06/11/24 16:00 Morphine Sulfate 2 mg Q30M PRN IV FOR CHEST PAIN 06/11/24 16:00 Norepinephrine Bitartrate 250 ml @ 3.75 mls/hr Q24H IV 06/11/24 16:15 06/11/24 17:15 Fentanyl Citrate 250 ml @ 2.5 mls/hr Q24H IV 06/11/24 16:15 06/11/24 16:25 Furosemide (Lasix Injection) 20 mg DAILY IV 06/12/24 10:00 Review of Systems Constitutional: No symptom reported Ears, Nose, & Throat: No symptom reported Eyes: No symptom reported Neurological: No symptoms reported Pulmonary/Respiratory: SOB Cardiovascular: No symptom reported Gastrointestinal: No symptom reported Genitourinary: No symptom reported Musculoskeletal: No symptom reported Skin: No symptom reported Psychiatric: No symptom reported Endocrine: No symptom reported Hemotologic/Lymphatic: No symptom reported Vital Signs Vital Signs Date Time Temp Pulse Resp B/P (MAP) Pulse Ox O2 Delivery O2 Flow Rate FiO2 06/12/24 10:33 71 18 97/66 (76) 98 30 06/12/24 07:00 98.1 98.1 06/11/24 19:45 Mechanical Ventilator+ 06/11/24 14:00 8.0 Physical Exam General Appearance: Mechanically ventilated. Off pressors. Off sedation Head Exam: Normal inspection Neck Exam: Normal inspection. Normal alignment Pulmonary/Respiratory: Clear bilateral breath sounds. Mechanically ventilated 30% FiO2 Cardiovascular/Chest: Regular rate and rhythm. S1, S2. NSR. No murmurs. No JVD. Peripheral Pulses: 2+ Radial (R). 2+ Radial (L). 2+ Pedal (R). 2+ Pedal (L) Abdominal Exam: Normal bowel sounds. Soft. Nontender. No hepatospenomegaly. No masses Ankle Exam: Negative ankle edema Lower extremities: Negative lower extremity edema Neuro/Mental Status: Withdrawn. +gag reflex. Pinpoint pupils Thoughts/Psych: unable to assess at this time Appearance: Withdrawn Skin Exam: Normal inspection. Normal color. Warm. Dry Labs/Diagnostic Data Labs Test 06/12/24 05:50 06/12/24 05:15 06/11/24 14:05 06/11/24 11:42 Range/Units Blood Gas Specimen Type Arterial Blood Gas Sample Site Right radial Blood Gas Patient Temperature 37.0 Arterial Blood Date Drawn [id number] Arterial Blood pH 7.556 *H 7.350-7.450 Arterial Blood Partial Pressure CO2 31.8 L 35.0-48.0 mmHg Arterial Blood Partial Pressure O2 70.9 L 83.0-108.0 mmHg Arterial Blood HCO3 27.6 21.0-28.0 mmol/L Arterial Blood Oxygen Saturation 94.6 94.0-98.0 % Arterial Blood Base Excess 5.6 H -2.0-3.0 mmol/L Arterial Blood Oxyhemoglobin 93.3 L 94.0-98.0 % Arterial Blood Carboxyhemoglobin 0.7 0.5-1.5 % Arterial Blood Methemoglobin 0.7 0.0-1.5 % Jun Test Modified Blood Gas Total Hemoglobin 12.70 L 13.5-17.5 g/dL Blood Gas Set Respiration Rate 18.0 Blood Gas Modality Vent - ac Blood Gas Spontaneous Rate 18 FiO2 % 30.0 Blood Gas Tidal Volume 500.0 Blood Gas PEEP or CPAP 5.0 Blood Gas Critical Value Read Back Yes Blood Gas Notified Whom lisset Claire md Blood Gas Notified Time [id number] Blood Gas Notified By Nasir henry rrt White Blood Count 8.8 # 4.4-10.8 10^3/uL Red Blood Count 3.80 L 4.5-5.90 10^6/uL Hemoglobin 11.8 L 13.5-17.5 g/dL Hematocrit 34.6 #L 41.0-53.0 % Mean Corpuscular Volume 91.2 # 80.0-100.0 fL Mean Corpuscular Hemoglobin 31.0 28.0-32.0 pg Mean Corpuscular Hemoglobin Concent 34.0 32.0-36.0 g/dL Red Cell Distribution Width 13.9 11.8-14.3 % Platelet Count 101 L 140-450 10^3/uL Mean Platelet Volume 10.1 6.9-10.8 fL Neutrophils (%) (Auto) 91.0 H 37.0-80.0 % Lymphocytes (%) (Auto) 5.5 L 10.0-50.0 % Monocytes (%) (Auto) 3.0 0.0-12.0 % Eosinophils (%) (Auto) 0.0 0.0-7.0 % Basophils (%) (Auto) 0.5 0.0-2.0 % Neutrophils # (Auto) 8.0 1.6-8.6 10 ^3/uL Lymphocytes # (Auto) 0.5 0.4-5.4 10 ^3/uL Monocytes # (Auto) 0.3 0-1.3 10 ^3/uL Eosinophils # (Auto) 0 0-0.8 10 ^3/uL Basophils # (Auto) 0 0-0.2 10 ^3/uL Nucleated Red Blood Cells 0.1 % Sodium Level 143 136-145 mmol/L Potassium Level 3.3 L 3.5-5.1 mmol/L Chloride Level 100 98-107 mmol/L Carbon Dioxide Level 30 20-31 mmol/L Anion Gap 13 5-15 Blood Urea Nitrogen 39 H 9-23 mg/dL Creatinine 1.29 0.700-1.30 mg/dL Glomerular Filtration Rate Calc 56 >90 mL/min BUN/Creatinine Ratio 30.2 H 10.0-20.0 Serum Glucose 243 H 74-106 mg/dL Calcium Level 8.6 L 8.7-10.4 mg/dL Total Bilirubin 1.7 H 0.2-1.0 mg/dL Aspartate Amino Transferase (AST) 40 13-40 U/L Alanine Aminotransferase (ALT) 40 7-40 U/L Alkaline Phosphatase 69 46-116 U/L Total Protein 4.4 L 5.7-8.2 g/dL Albumin 2.7 L 3.2-4.8 g/dL B-Type Natriuretic Peptide 581.15 0-100 pg/mL Troponin I High Sensitivity 158 *H </=54 ng/L Test 06/11/24 11:24 06/11/24 11:20 Range/Units Urine Color Light-yellow Yellow Urine Clarity Clear Clear Urine pH 6.0 5.0-9.0 Urine Specific [place] 1.011 1.001-1.035 Urine Protein Negative Negative Urine Ketones Negative Negative Urine Blood 1+ H Negative /uL Urine Nitrite Negative Negative Urine Bilirubin Negative Negative Urine Urobilinogen Normal Negative mg/dL Urine Leukocyte Esterase Negative Negative /uL Urine RBC 1 0 - 3 /hpf Urine Microscopic WBC < 1 0-3 /HPF Urine Squamous Epithelial Cells None seen <5 /hpf Urine Bacteria None seen None Seen /hpf Urine Hyaline Casts Few 0 - 2 /lpf Urine Glucose 1+ H Normal mg/dL Blood Gas Liter Flow 6.00 Microbiology Date/Time Source Procedure Growth Status 06/11/24 18:38 Lung Pending Resulted 06/11/24 18:38 Lung Pending Resulted 06/11/24 18:38 Lung Pending Resulted 06/11/24 18:38 Lung Pending Resulted 06/11/24 18:38 Lung - Final See Separate Report... Resulted Assessment COPD exacerbation NTSEMI, likely type II secondary to acute hypoxic respiratory failure Coronary artery disease s/p PTCA X 2 CORDELIA s/p in-stent restenosis repair (on ASA) Chronic compensated HFmrEF, NYHA class IV Qch-[id number] diabetes mellitus Hypertension Dyslipidemia Obstructive sleep apnea without CPAP use Remote history of tobacco use Morbid obesity Plan/Recommendation (Dr. Farrell) * Echocardiogram from 05/23/2024 revealed EF approximately 45% * Recommend initiation of GDMT for CHF when able to tolerate * Single-antiplatelet therapy and lipid-lowering agent (allergic to Plavix) * Initiate DVT/VTE prophylaxis, BCs, ABX prophylaxis * Consider home O2 and/or CPAP HS The patient is cardiac stable at this time. Continue primary care team recomme ndations. Follow-up with Dr. Alston as scheduled in the outpatient setting. There is no further cardiac work-up indicated at this time. Kindly call if in need to re-consult. Thank you for allowing us to care for this patient. Please call with any questions or concerns. Critical care time spent: 40 minutes. This medical document was created using an electronic medical record system with voice recognition software and computerized dictation system. Although this document has been carefully reviewed, there might still be some phonetic and typographical errors. Occasional wrong-word or ``sound-alike substitutions may have occurred due to the inherent limitations of voice recognition software. These areas are purely typographical due to imperfections of the software programs and do not reflect any compromise in the patient's medical care. Please read the chart carefully and recognize, using context, where these substitutions have occurred. Plan discussed with: Daughter, Other NYHA Physical activity limitations: Class3(Marked) ordinary (activity causes symtoms) Date of Service: Jun 12, 2024 Billing Provider: RONNA BEEBE Cardiology Common Codes: [id number] CARE 30-74 MIN RONNA BEEBE Jun 12, 2024 11:09
[2024-06-12] MEDS: ASPirin 81 mg TAB PO SCH (11:51)
[2024-06-12] MEDS: ENOXAPARIN SOD 40 MG/0.4 ML SYRINGE SC ONE (11:51)
[2024-06-12] MEDS: FUROSEMIDE 20 MG/2 ML VIAL IV SCH (11:52)
[2024-06-12] MEDS: cefTRIAXone 1GM/50ML D5W 50 ML IV ONE (11:52)
[2024-06-12] MEDS: POTASSIUM CHL 20MEQ/100ML 100 ML IV ONE (11:53)
[2024-06-12] MEDS ORDERED: Glucerna 1.2 Cal 1Liter BOTTLE GT SCH (13:30)
[2024-06-12] MEDS ORDERED: Jevity 1.2 Cal/Fiber 1 Liter GT SCH (13:30)
--- NOTE | 2024-06-12 13:54 | DVHPN2 ---
Subjective patient chemically sedated and intubated Reviewed: Care Plan, H&P, Labs, Medications, Previous Orders, Radiology Changes from previous H/P or p: No Changes Eyes: No Pain, No Vision change, No Conjunctivae inflammation, No Eyelid inflammation, No Other, No Redness ENT: No Ear pain, No Ear discharge, No Nose pain, No Nose discharge, No Nose congestion, No Mouth pain, No Mouth swelling, No Throat pain, No Throat swelling, No Other Cardiovascular: Chest Pain; No Palpitations, No Orthopnea, No Paroxysmal Noc. Dyspnea, No Edema, No Lt Headedness, No Other Respiratory: No Cough, No Dry; Shortness of breath, SOB with excertion; No Wheezing, No Hemoptysis, No Pleuritic Pain, No Sputum; Other (SOB at rest) Gastrointestinal: No Nausea, No Vomiting, No Abdominal Pain, No Diarrhea, No Constipation, No Melena, No Hematochezia, No Other Genitourinary: No Dysuria, No Frequency, No Incontinence, No Hematuria, No Retention, No Other Musculoskeletal: No other, No neck pain, No shoulder pain, No arm pain, No back pain, No hand pain, No leg pain, No foot pain Skin: No Rash, No Lesions, No Jaundice, No Bruising, No Other Objective Vitals Vital Signs Date Time Temp Pulse Resp B/P (MAP) Pulse Ox O2 Delivery O2 Flow Rate FiO2 06/12/24 12:45 70 06/12/24 12:21 18 91/65 (74) 95 30 06/12/24 07:00 98.1 98.1 06/11/24 19:45 Mechanical Ventilator+ 06/11/24 14:00 8.0 Intake/Output Intake and Output 06/12/24 07:00 Intake Total 414.75 ml Output Total 350 ml Balance 64.75 ml Intake IV Total 414.75 ml Output Urine Total 350 ml Exam shortness of breath and chest pain patient intubated and chemically sedated General Appearance: Other (sedated ) HEENT: PERRLA, Mucous membr. moist/pink Lungs: Clear to auscultation Abdomen: Normal bowel sounds, Soft Extremities: No clubbing, No cyanosis, Other (bilateral leg edema ) Psych/Mental Status: Other (intubated and seated ) Medications Current Medications Medications Dose Ordered Sig/Mindy Route Start Time Stop Time Status Last Admin Dose Admin Aspirin 81 mg DAILY PO 06/12/24 10:00 06/12/24 11:51 81 MG Albuterol 2.5 mg Q4HPRN PRN NEB 06/11/24 13:45 Ipratropium [place] 0.5 mg Q4HPRN PRN NEB 06/11/24 13:45 Methylprednisolone Sodium Succinate 40 mg Q8HR IV 06/11/24 14:00 06/12/24 06:00 40 MG Famotidine 20 mg Q12HR IV 06/11/24 22:00 06/12/24 11:52 20 MG Sodium Chloride 10 ml Q8HR IV 06/11/24 14:00 06/12/24 06:00 10 ML Acetaminophen/ Hydrocodone Bitart 1 tab Q4HP PRN PO 06/11/24 13:45 Ondansetron HCl 4 mg Q4HP PRN IV 06/11/24 13:45 Docusate Sodium 100 mg BIDPRN PRN PO 06/11/24 13:45 Acetaminophen 650 mg Q6HP PRN PO 06/11/24 13:45 Midazolam HCl 50 ml @ 1 mls/hr Q24H IV 06/11/24 14:45 06/11/24 18:12 15 MLS/HR Nitroglycerin 0.4 mg Q5MINP PRN SL 06/11/24 16:00 Morphine Sulfate 2 mg Q30M PRN IV 06/11/24 16:00 Norepinephrine Bitartrate 250 ml @ 3.75 mls/hr Q24H IV 06/11/24 16:15 06/11/24 17:15 3.75 MLS/HR Fentanyl Citrate 250 ml @ 2.5 mls/hr Q24H IV 06/11/24 16:15 06/11/24 16:25 2.5 MLS/HR Furosemide 20 mg DAILY IV 06/12/24 10:00 06/12/24 11:52 20 MG Atorvastatin Calcium 40 mg HS PO 06/12/24 22:00 Enoxaparin Sodium 40 mg DAILY SC 06/13/24 10:00 Ceftriaxone Sodium 50 ml @ 100 mls/hr DAILY@09 IV 06/13/24 09:00 Laboratory Results Laboratory Tests 06/12/24 05:15 Chemistry Test 06/12/24 05:15 Albumin 2.7 g/dL (3.2-4.8) L Calcium Level 8.6 mg/dL (8.7-10.4) L Total Protein 4.4 g/dL (5.7-8.2) L Cardiac Markers Test 06/11/24 14:05 B-Type Natriuretic Peptide 581.15 pg/mL (0-100) LFT Test 06/12/24 05:15 Alanine Aminotransferase (ALT) 40 U/L (7-40) Alkaline Phosphatase 69 U/L (46-116) Aspartate Amino Transferase (AST) 40 U/L (13-40) Total Bilirubin 1.7 mg/dL (0.2-1.0) H Urinalysis Test 06/11/24 11:24 Urine Color Light-yellow (Yellow) Urine Clarity Clear (Clear) Urine pH 6.0 (5.0-9.0) Urine Specific [place] 1.011 (1.001-1.035) Urine Protein Negative (Negative) Urine Ketones Negative (Negative) Urine Blood 1+ /uL (Negative) H Urine Nitrite Negative (Negative) Urine Bilirubin Negative (Negative) Urine Urobilinogen Normal mg/dL (Negative) Urine Leukocyte Esterase Negative /uL (Negative) Urine RBC 1 /hpf (0 - 3) Urine Microscopic WBC < 1 /HPF (0-3) Urine Squamous Epithelial Cells None seen /hpf (<5) Urine Bacteria None seen /hpf (None Seen) Urine Hyaline Casts Few /lpf (0 - 2) Urine Glucose 1+ mg/dL (Normal) H Blood Gas Results Test 06/11/24 15:50 06/12/24 05:50 Arterial Blood pH 7.500 (7.350-7.450) 7.556 (7.350-7.450) FiO2 % 100.0 30.0 Microbiology Microbiology Date/Time Source Procedure Growth Status 06/11/24 18:38 Lung Pending Resulted 06/11/24 18:38 Lung Pending Resulted 06/11/24 18:38 Lung Pending Resulted 06/11/24 18:38 Lung Pending Resulted 06/11/24 18:38 Lung - Final See Separate Report... Resulted 06/11/24 15:07 Sputum Expectorated Sputum Gram Stain - Final Resulted 06/11/24 15:07 Sputum Expectorated Sputum Respiratory Culture - Preliminary Resulted Labs and/or images reviewed: Labs reviewed by me, Image(s) reviewed by me Assessment/Plan Assessment/Plan 79-year-old man history of CAD, [place] ,COPD, myocardial infarction, hyperlipidemia, hypertension.who presented to [facility] ED from [facility] with complaint of shortness of breaths.patiently was emergently intubated and placed on mechanical ventilator due to increased work of breathing and hypercarbia and hypoxia. spoke with family at bedside states patient was more exhausted the past few days but denied any chest pain, palpitations, cough,fever , abdominal pain, nausea or vomiting. pt was recently discharged 06/06/23 from [facility] during that admission patient was intubated and in the ICU for severe acute on chronic COPD exacerbation. Assessment Impression: -Acute on chronic hypoxic respiratory failure -Acute on exacerbation of COPD -on mechanical ventilator -septic shock -hypotension -NSTEMI type 2 -Pulmonary vascular congestion -pressure Ulcer on bilateral heals -IDCK -bilateral lower extremity edema Plan: -daily CBC ,CMP -DAILY CXR -daily ABG -chemically sedated - vasopressor for hypotension keep MAP >65mmhg -pulmonary consult -cardiology consult - switched antibiotics from Rocephin to vancomycin pt had previous positive sputum culture staph -F/u cultures pending : Sputum and Blood cultures - nutritional support : started tube feeding Glucerna - started S/S MILD ACHS -GI/DVT prophylaxis. -monitor I/O Plan discussed with: Daughter, Other (nurse ) Date of Service: Jun 12, 2024 Billing Provider: YOLI KAY NP Common Visit Codes: [id number] CARE 30-74 MIN [place] [employer]ITE STUDENT PRODUCTION ADMINISTRATIVE ASSISTANT Jun 12, 2024 13:54
[2024-06-12] MEDS ORDERED: VANCOMYCIN PER PHARMACY 0 MG IV SCH (14:30)
[2024-06-12] MEDS: VANCOMYCIN 1.5GM/300ML 300 ML IV ONE (15:30)
[2024-06-12 15:58] LABS: COVID19 ANTIGEN SOFIA FIA NEGATIVE (NEGATIVE); Rapid Influenza A Negative (Negative); Rapid Influenza B Negative (Negative)
[2024-06-12] MEDS: ACCU-CHEK COMFORT CURVE STRIP VI SCH (17:58)
[2024-06-12] MEDS: InsuLIN REG 1unit/0.01ml Soln (100units/ml) SC SCH (18:04)
[2024-06-12] MEDS: ATORVASTATIN 20 MG TAB PO SCH (22:45)
--- NOTE | 2024-06-12 23:47 | DVHPN2 ---
Progress Note - Dictate Date Seen: Jun 12, 2024 Medical Necessity Reason Pt with a Central, PICC or Fol: Yes The following are medically ne: Garcia Catheter Reason for garcia catheter: Strict I&O Subjective Patient seen and examined at bedside. Intubated on mechanical ventilator. Overnight events reviewed. vital signs Vital Sign Date Time Temp Pulse Resp B/P (MAP) Pulse Ox O2 Delivery O2 Flow Rate FiO2 06/12/24 20:09 55 18 108/69 (82) 96 30 06/12/24 18:21 Mechanical Ventilator+ 06/12/24 18:15 97.9 208.2 06/11/24 14:00 8.0 Total Intake and Output 06/11/24 06/11/24 06/12/24 15:00 23:00 07:00 Intake Total 222.00 ml 196.50 ml Output Total 350 ml Balance 222.00 ml -153.50 ml medications Current Medications Medications Dose Ordered Sig/Mindy Route Start Time Stop Time Status Last Admin Dose Admin Aspirin 81 mg DAILY PO 06/12/24 10:00 06/12/24 11:51 81 MG Albuterol 2.5 mg Q4HPRN PRN NEB 06/11/24 13:45 Ipratropium [place] 0.5 mg Q4HPRN PRN NEB 06/11/24 13:45 Methylprednisolone Sodium Succinate 40 mg Q8HR IV 06/11/24 14:00 06/12/24 22:54 40 MG Famotidine 20 mg Q12HR IV 06/11/24 22:00 06/12/24 22:55 20 MG Sodium Chloride 10 ml Q8HR IV 06/11/24 14:00 06/12/24 22:00 10 ML Acetaminophen/ Hydrocodone Bitart 1 tab Q4HP PRN PO 06/11/24 13:45 Ondansetron HCl 4 mg Q4HP PRN IV 06/11/24 13:45 Docusate Sodium 100 mg BIDPRN PRN PO 06/11/24 13:45 Acetaminophen 650 mg Q6HP PRN PO 06/11/24 13:45 Nitroglycerin 0.4 mg Q5MINP PRN SL 06/11/24 16:00 Morphine Sulfate 2 mg Q30M PRN IV 06/11/24 16:00 Norepinephrine Bitartrate 250 ml @ 3.75 mls/hr Q24H IV 06/11/24 16:15 06/11/24 17:15 3.75 MLS/HR Fentanyl Citrate 250 ml @ 2.5 mls/hr Q24H IV 06/11/24 16:15 06/11/24 16:25 2.5 MLS/HR Furosemide 20 mg DAILY IV 06/12/24 10:00 06/12/24 11:52 20 MG Atorvastatin Calcium 40 mg HS PO 06/12/24 22:00 Enoxaparin Sodium 40 mg DAILY SC 06/13/24 10:00 Ceftriaxone Sodium 50 ml @ 100 mls/hr DAILY@09 IV 06/13/24 09:00 Enteral Nutritional Formula 1,000 ml 30ML/HR GT 06/12/24 13:30 Diagnostic Test (Pha) 1 strip ACHS 06/12/24 17:00 06/12/24 22:00 1 STRIP Insulin Human Regular ACHS SC 06/12/24 17:00 06/12/24 22:56 6 UNITS Dextrose 50 ml UD PRN IV 06/12/24 13:30 Vancomycin HCl 0 ml @ 0 mls/hr UD IV 06/12/24 14:30 objective Gen.: Patient lying in bed in medical ICU. Intubated on mechanical ventilator. Head: Normocephalic, atraumatic. Eyes: PERRLA. Ears: Normal external anatomy. Throat: Endotracheal tube and orogastric tube in place. Neck: Supple, trachea midline. Chest: Transmitted breath sounds bilaterally. Decreased air entry bilaterally. No wheezing. Bibasilar crackles. Cardiovascular: Positive S1, positive S2. Regular rate and rhythm. Abdomen: Positive bowel sounds in all 4 quadrants. Soft, nontender, nondistended. : Garcia in place. Normal external genitalia. Rectal: Deferred. Skin: Warm, dry. Intact. Extremities: 2+ radial pulses bilaterally. No lower extremity edema. Neuro: Off sedation laboratory and microbiology Laboratory Tests 06/12/24 05:15 Test 06/12/24 05:15 Range/Units Serum Glucose 243 H 74-106 mg/dL Assessment/Plan Impression: Acute on chronic hypoxic respiratory failure On mechanical ventilator Acute exacerbation of COPD Morbid obesity Shock, hypovolemic versus sepsis Hemoptysis Elevated troponin Pulmonary vascular congestion Events: Remains on vent support Off sedation, Versed discontinued Off pressors, hemodynamically stable. ABG reviewed, notable for alkalemia VT was reduced to 400. Vent settings; respiratory rate of 18, tidal volume 400, PEEP of 5, FiO2 at 30%. Obtain repeat ABG. CPAP in AM with PS 8, PEEP of 5. Continue antibiotics. Continue bronchodilators. Continue steroids Diurese to maintain euvolemia Monitor renal function Monitor electrolytes. Supplement as necessary. Monitor ins and outs Labs and imaging reviewed. Rest of plan as noted below. Plan: s/p intubation on mechanical ventilator CXR image and report reviewed. ET tube at the level of the karoline. It was placed during bronchoscopy approximately 2 cm above the karoline. ABG reviewed. Alkalemia Vent settings; respiratory rate of 18, tidal volume 400, PEEP of 5, FiO2 at 30%. Titrate FIO2 to keep O2 saturation above 92%. VAP bundle Daily ABG and CXR while intubated. Off sedation Pressors as necessary for hemodynamic support. Titrate to keep MAP above 65 mmHg/SBP above 90 mmHg. Elevated troponin Follow up Cardiology recommendations Continue antibiotics. F/u cultures. Follow up left lower lobe BAL Monitor renal function due to Acute kidney injury. Monitor electrolytes. Supplement as necessary. Monitor ins and outs Nutritional support. Start tube feeds Accucheks, ISS. GI/DVT prophylaxis. Condition: Critical Prognosis: Poor given multiple comorbidities. Rest of plan per hospitalist and other consultants. A total of 35 minutes of critical care time was spent reviewing the patient record, examining the patient, making a diagnostic and therapeutic plan, discussing this plan with the medical personnel, following up on diagnostic studies and following the patient for clinical stability excluding any and all procedures. At least 50% of this time was spent in direct, [id number] contact. Thank you RAFA Blackwell for allowing me to participate in this patient's care. Further recommendations will depend on patient's clinical course. Please do not hesitate to contact me if you have any questions or concerns. This medical document was created using an electronic medical record system with [employer] system. Although this document has been carefully reviewed, there may still be some phonetic and typographical errors. These areas are purely typographical due to imperfections of the software programs, and do not reflect any compromise in the patient's medical care. Plan discussed with: Other (MALICK Fall) Critical Care Time(min): 35 RYAN ROMERO MD Jun 12, 2024 23:47
[2024-06-13] VITALS (59 sets, daily range): BP systolic 94–169; BP diastolic 57–104; PULSE 51–115; RESP 15–18; TEMP 97.3–98.6; O2SAT 92–100
[2024-06-13] MEDS: LORazepam 2MG/ML-1ML VIAL IV ONE (06:30)
[2024-06-13] MEDS: MIDAZOLAM DRIP 50 mg/50mL 50 ML IV SCH (06:40)
--- NOTE | 2024-06-13 06:46 | DVH ---
CHEST RADIOGRAPH Indication: HIGH TIDAL VOLUME Technique: Single frontal view of the chest was obtained Comparison: XY CHEST PORTABLE on DOS: 06/12/24 FINDINGS: Lines and Tubes: Right central venous catheter terminates in the superior cavoatrial junction. Endot sagar tube terminates 3.0 cm above the karoline. The enteric tube courses below the left hemidiaphrag m and the tip extends outside the field of view. Lungs: No focal consolidation. Pleura: No effusion. No pneumothorax. Cardiomediastinal contours: Stable. Bones: No acute osseous abnormality. IMPRESSION: 1. No significant interval change.
[2024-06-13 07:02] LABS: Base Excess 6.3 mmol/L (-2.0-3.0)
[2024-06-13 07:08] LABS: Eosinophils # (auto) 0 10 ^3/uL (0-0.8); Monocytes # (auto) 0.2 10 ^3/uL (0-1.3); Nucleated Red Blood Cells % 0.1 %
[2024-06-13 07:12] LABS: Basophils # (auto) 0 10 ^3/uL (0-0.2); Basophils % (auto) 0.4 % (0.0-2.0); Hematocrit 35.8 % (41.0-53.0); Hemoglobin 12.4 g/dL (13.5-17.5); Lymphocytes # (auto) 0.3 10 ^3/uL (0.4-5.4); Mean Corpuscular Hemoglobin 31.8 pg (28.0-32.0); Mean Corpuscular Hgb Conc. 34.7 g/dL (32.0-36.0); Mean Corpuscular Volume 91.6 fL (80.0-100.0); Neutrophils # (auto) 6.7 10 ^3/uL (1.6-8.6); Neutrophils % (auto) 92.6 % (37.0-80.0); Red Blood Cells 3.91 10^6/uL (4.5-5.90); Red Cell Distribution Width 14.3 % (11.8-14.3); White Blood Cell 7.3 10^3/uL (4.4-10.8)
[2024-06-13 08:08] LABS: Chloride 104 mmol/L (98-107); Potassium 4.5 mmol/L (3.5-5.1); Sodium 142 mmol/L (136-145)
[2024-06-13 08:09] LABS: Anion Gap 13 (5-15); Calcium 8.7 mg/dL (8.7-10.4); Carbon Dioxide 25 mmol/L (20-31)
[2024-06-13 08:14] LABS: BUN/Creatinine Ratio 21.7 (10.0-20.0); Blood Urea Nitrogen 45 mg/dL (9-23); Glucose 271 mg/dL (74-106)
[2024-06-13 08:27] LABS: Platelet Count (auto) 36 10^3/uL (140-450)
[2024-06-13 08:29] LABS: Platelet Estimate Decreased
[2024-06-13] MEDS: cefTRIAXone 1GM/50ML D5W 50 ML IV SCH (08:47)
[2024-06-13] MEDS: PROPOFOL 100 ML IV SCH (08:48)
[2024-06-13] MEDS ORDERED: LORazepam 2MG/ML-1ML VIAL IV PRN ×2 (09:15→10:45)
--- NOTE | 2024-06-13 09:29 | DVHPN2 ---
Subjective Patient chemically sedated Reviewed: Care Plan, H&P, Labs, Medications, Previous Orders, Radiology Changes from previous H/P or p: No Changes Eyes: No Pain, No Vision change, No Conjunctivae inflammation, No Eyelid inflammation, No Other, No Redness ENT: No Ear pain, No Ear discharge, No Nose pain, No Nose discharge, No Nose congestion, No Mouth pain, No Mouth swelling, No Throat pain, No Throat swelling, No Other Cardiovascular: Chest Pain; No Palpitations, No Orthopnea, No Paroxysmal Noc. Dyspnea, No Edema, No Lt Headedness, No Other Respiratory: No Cough, No Dry; Shortness of breath, SOB with excertion; No Wheezing, No Hemoptysis, No Pleuritic Pain, No Sputum; Other (SOB at rest) Gastrointestinal: No Nausea, No Vomiting, No Abdominal Pain, No Diarrhea, No Constipation, No Melena, No Hematochezia, No Other Genitourinary: No Dysuria, No Frequency, No Incontinence, No Hematuria, No Retention, No Other Musculoskeletal: No other, No neck pain, No shoulder pain, No arm pain, No back pain, No hand pain, No leg pain, No foot pain Skin: No Rash, No Lesions, No Jaundice, No Bruising, No Other Objective Vitals Vital Signs Date Time Temp Pulse Resp B/P (MAP) Pulse Ox O2 Delivery O2 Flow Rate FiO2 06/13/24 08:27 85 18 113/82 (92) 100 30 06/13/24 07:00 98.4 98.4 06/12/24 20:30 Mechanical Ventilator+ 06/11/24 14:00 8.0 Intake/Output Intake and Output 06/13/24 07:00 Intake Total 216.25 ml Output Total 200 ml Balance 16.25 ml Intake Oral 0 ml IV Total 216.25 ml Output Urine Total 200 ml General Appearance: Other (sedated ) HEENT: Mucous membr. moist/pink, Other (Pupils four and nonreactive) Lungs: Clear to auscultation Cardiovascular: Normal S1, Normal S2 Abdomen: Normal bowel sounds, Soft Extremities: No clubbing, No cyanosis, Other (bilateral leg edema ) Skin: Dry, Intact Psych/Mental Status: Other (intubated and seated ) Medications Current Medications Medications Dose Ordered Sig/Mindy Route Start Time Stop Time Status Last Admin Dose Admin Aspirin 81 mg DAILY PO 06/12/24 10:00 06/12/24 11:51 81 MG Albuterol 2.5 mg Q4HPRN PRN NEB 06/11/24 13:45 Ipratropium [place] 0.5 mg Q4HPRN PRN NEB 06/11/24 13:45 Methylprednisolone Sodium Succinate 40 mg Q8HR IV 06/11/24 14:00 06/13/24 06:00 40 MG Famotidine 20 mg Q12HR IV 06/11/24 22:00 06/12/24 22:55 20 MG Sodium Chloride 10 ml Q8HR IV 06/11/24 14:00 06/13/24 06:00 10 ML Acetaminophen/ Hydrocodone Bitart 1 tab Q4HP PRN PO 06/11/24 13:45 Ondansetron HCl 4 mg Q4HP PRN IV 06/11/24 13:45 Docusate Sodium 100 mg BIDPRN PRN PO 06/11/24 13:45 Acetaminophen 650 mg Q6HP PRN PO 06/11/24 13:45 Nitroglycerin 0.4 mg Q5MINP PRN SL 06/11/24 16:00 Morphine Sulfate 2 mg Q30M PRN IV 06/11/24 16:00 Norepinephrine Bitartrate 250 ml @ 3.75 mls/hr Q24H IV 06/11/24 16:15 06/11/24 17:15 3.75 MLS/HR Fentanyl Citrate 250 ml @ 2.5 mls/hr Q24H IV 06/11/24 16:15 06/11/24 16:25 2.5 MLS/HR Furosemide 20 mg DAILY IV 06/12/24 10:00 06/12/24 11:52 20 MG Atorvastatin Calcium 40 mg HS PO 06/12/24 22:00 Enoxaparin Sodium 40 mg DAILY SC 06/13/24 10:00 Ceftriaxone Sodium 50 ml @ 100 mls/hr DAILY@09 IV 06/13/24 09:00 06/13/24 08:47 100 MLS/HR Enteral Nutritional Formula 1,000 ml 30ML/HR GT 06/12/24 13:30 Diagnostic Test (Pha) 1 strip ACHS 06/12/24 17:00 06/13/24 06:55 1 STRIP Insulin Human Regular ACHS SC 06/12/24 17:00 06/13/24 07:00 4 UNITS Dextrose 50 ml UD PRN IV 06/12/24 13:30 Vancomycin HCl 0 ml @ 0 mls/hr UD IV 06/12/24 14:30 Midazolam HCl 50 ml @ 1 mls/hr Q24H IV 06/13/24 06:45 06/13/24 06:40 5 MLS/HR Propofol 100 ml @ 2.727 mls/ hr Q24H IV 06/13/24 08:15 06/13/24 08:48 2.727 MLS/HR Laboratory Results Laboratory Tests 06/13/24 05:49 Chemistry Test 06/13/24 05:49 Calcium Level 8.7 mg/dL (8.7-10.4) Urinalysis Test 06/11/24 11:24 Urine Color Light-yellow (Yellow) Urine Clarity Clear (Clear) Urine pH 6.0 (5.0-9.0) Urine Specific [place] 1.011 (1.001-1.035) Urine Protein Negative (Negative) Urine Ketones Negative (Negative) Urine Blood 1+ /uL (Negative) H Urine Nitrite Negative (Negative) Urine Bilirubin Negative (Negative) Urine Urobilinogen Normal mg/dL (Negative) Urine Leukocyte Esterase Negative /uL (Negative) Urine RBC 1 /hpf (0 - 3) Urine Microscopic WBC < 1 /HPF (0-3) Urine Squamous Epithelial Cells None seen /hpf (<5) Urine Bacteria None seen /hpf (None Seen) Urine Hyaline Casts Few /lpf (0 - 2) Urine Glucose 1+ mg/dL (Normal) H Blood Gas Results Test 06/12/24 16:52 06/13/24 06:49 Arterial Blood pH 7.442 (7.350-7.450) 7.442 (7.350-7.450) FiO2 % 30.0 30.0 Microbiology Microbiology Date/Time Source Procedure Growth Status 06/11/24 18:38 Lung Pending Resulted 06/11/24 18:38 Lung Pending Resulted 06/11/24 18:38 Lung Pending Resulted 06/11/24 18:38 Lung Pending Resulted 06/11/24 18:38 Lung - Final See Separate Report... Resulted 06/11/24 15:07 Sputum Expectorated Sputum Gram Stain - Final Resulted 06/11/24 15:07 Sputum Expectorated Sputum Respiratory Culture - Preliminary Resulted Labs and/or images reviewed: Labs reviewed by me, Image(s) reviewed by me Assessment/Plan Assessment/Plan Impression: -acute on chronic hypoxic and hypercarbic respiratory failure -COPD with exacerbation -recent history of Staphylococcus aureus pneumonia -obesity -thrombocytopenia -atrial fibrillation -obesity -acute kidney injury, probable vasomotor nephropathy -acute on chronic systolic and diastolic heart failure Plan: -worsening thrombocytopenia, stop Lovenox and aspirin -patient had questionable seizure activity this a.m.. Neurology consultation, discussed with Dr. Christianson. CT scan of the head pending -continue current sedation, Ativan for breakthrough seizure activity -continue tube feeding -stop vancomycin given worsening renal function. Start Levaquin for Staphylococcus aureus in sputum -pulmonology consultation: Patient had bronchoscopy, plans for spontaneous breathing trial today. Recommend to hold given new seizure activity. Ventilator management. -cardiology consultation: Recommendations reviewed -start free water 100 mL every 6 hours -repeat labs, chest x-ray, ABG in a.m. Critical care time spent with patient discussing and formulating plan of care: 40 minutes. This does not include time spent performing procedures. This medical document was created using an electronic medical record system with [employer] dictation system. Although this document has been carefully reviewed, there may still be some phonetic and typographical errors. These areas are purely typographical due to imperfections of the software programs, and do not reflect any compromise in the patient's medical care. Plan discussed with: Patient, Other (RN) My Orders Orders - YOLI KAY NP Procedure Category Date Status Time Vancomycin Per CARLOS 06/12/24 In Process Pharmacy Protoc 13:19 Nutritional PHA 06/12/24 In Process Supplements (Glucerna 13:30 Glucose Blood PHA 06/12/24 In Process (Accu-Chek Comfort 17:00 Insulin R (Human) PHA 06/12/24 In Process (Insulin R) 17:00 Dextrose 50% Syringe PHA 06/12/24 In Process 13:30 Vancomycin Per PHA 06/12/24 In Process Pharmacy 14:30 * Wound Consult CONS 06/12/24 Transmitted Apply Barrier Cream CARLOS 06/12/24 In Process 14:00 Foam Cradle To ORDERS 06/12/24 Transmitted Bilateral Feet 14:00 * Dietary Consult CONS 06/12/24 Transmitted 14:00 Cleanse Wound With CARLOS 06/12/24 In Process Wound Clean 14:00 Specialty Bed Mattress ORDERS 06/12/24 Transmitted 14:00 Vancomycin,Trough LAB 06/14/24 Verified 05:00 Vancomycin Per CARLOS 06/13/24 In Process Pharmacy Protoc 20:00 Creatinine LAB 06/14/24 Verified 05:[address] 06/13/24 Transmitted 09:09 Free Water PHA 06/13/24 Transmitted 12:00 Lorazepam 2mg/Ml Inj PHA 06/13/24 Transmitted (Ativan Inj) 09:15 Date of Service: Jun 13, 2024 Billing Provider: YOLI KAY NP Common Visit Codes: [id number] CARE 30-74 MIN YOLI KAY NP Jun 13, 2024 09:29
--- NOTE | 2024-06-13 09:33 | DVHINCON2 ---
Date of service: Jun 13, 2024 Referring Physician Mr. Jeffry Cummins is a 79 years old right-handed gentleman with a history of hypertension, coronary artery disease, heart attack, COPD, he came to the [facility] on 06/11/2024 with a chief company of shortness of breath for 2 hours. The patient was intubated on 06/11/2024 in the emergency room. He was discharged on 06/06/2024 from [facility] to a SNF, his mental status around that time was oriented x 2-3 I saw him on 05/29/2024 for altered mental status Her daytime nurse reported seizure activity earlier today, but she does not know details, her shift lab technician nurse, in her note dated 06/13/2024 0610: Pt started seizing, destated down to 80%, vent detached, manually bagging the pt at this time to increase SPO2, rt paged Her daughter, who is with the patient confirmed he was no history of memory problems/dementia or seizure disorder Nurse's note 06/13/2024 0610: Pt started seizing, destated down to 80%, vent detached, manually bagging the pt at this time to increase SPO2, rt paged Urinalysis, 06/12/2024: WBC: 1, urine leukocyte esterase: Negative ABG, 06/13/2024, pCO2: 66.3, HCO3: 31.5 WBC/HB/PLT/MCV, 05/25/2024: 17.9/14.4/211/93.1, 05/29/2024: 10.8/13.9/190/91.6, 06/03/2024: 21.3/316/178/90.7, 06/12/2024: 0.8/11.8/101/91.2, 06/13/2024: 7.3/12.4/36/91.6 BUN/CR, 05/29/2024: 28/0.78, 06/28/2024, 39/1.29 HGB A1c, 05/23/24: 6.5 TBI/AST/ALT/AP, 06/12/2024: 1.7/40/40/69 TG/HDL/LDL/HDL, 05/23/2024: 118/112/48/49 TSH, 05/23/2024: 0.71 Chest X ray, 06/11/2024: ETT tip is at the karoline. Retraction by [address] head, 05/20/2024: 1. Global brain atrophy and chronic schema changes without evidence of acute intracranial process. 2. Punctate intra-axial and extra-axial calcifications may be due to remote history of TORCH infection. 3. Mild bilateral maxillary and ethmoid sinus disease. Past Medical History Hypertension, coronary artery disease, heart attack, A fib, COPD, obesity Past Surgical History PTCA Family History Hypertension, diabetes, heart disease Social History He was tobacco smoke, but no history of alcohol or recreational substance abuse Allergies: Coded Allergies: Clopidogrel (Verified Allergy, Unknown, 02/11/19) Home Meds Reported Medications Ipratropium-Albuterol (COMBIVENT RESPIMAT) Respimat Aer, 1 PUFF IN Q4-6HR PRN for 40 Days, #8 05/24/24 Montelukast Sodium (MONTELUKAST SODIUM) 10 Mg Tab, 1 TAB PO DAILY for 30 Days, #30 05/24/24 Dupilumab (Dupixent) 300 Mg/2 Ml Inj, 300 MG SC EVERY 2 WEEKS for 28 Days, #4 05/24/24 Fullrfruse-Lpuanmkcpalamm-Hknx (Breztri Aerosphere 160-9-4.8 Mcg/Act) 1 Aer Aer, 2 PUFF IN BID for 30 Days, #10.7 05/24/24 Prednisone (Prednisone) 10 Mg Tab, 1 TAB PO DAILY for 30 Days, #30 05/24/24 Sacubitril-Valsartan (Entresto 24-26 mg) 1 Tab Tab, 1 TAB PO BID for 90 Days, #180 05/22/24 Tamsulosin Hcl (Tamsulosin Hcl) 0.4 Mg Cap, 1 CAP PO DAILY for 90 Days, #90 05/22/24 Atorvastatin Calcium (ATORVASTATIN CALCIUM) 40 Mg Tab, 1 TAB PO DAILY for 90 Days, #90 05/22/24 Carvedilol (Carvedilol) 12.5 Mg Tab, 1 TAB PO BID for 90 Days, #180 05/22/24 Current Medications Current Medications Medications (Trade) Dose Ordered Sig/Mindy Route PRN Reason Start Time Stop Time Status Last Admin Aspirin 81 mg DAILY PO 06/12/24 10:00 06/12/24 11:51 Furosemide (Lasix Injection) 20 mg DAILY IV 06/12/24 10:00 06/12/24 11:52 Atorvastatin Calcium (Lipitor) 40 mg HS PO 06/12/24 22:00 Enoxaparin Sodium (Lovenox) 40 mg DAILY SC 06/13/24 10:00 Ceftriaxone Sodium 50 ml @ 100 mls/hr DAILY@09 IV 06/13/24 09:00 06/13/24 08:47 Enteral Nutritional Formula (Jevity 1.2 Juan/ Fiber) 1,000 ml 30ML/HR GT 06/12/24 13:30 06/12/24 13:28 DC Enteral Nutritional Formula (Glucerna 1.2 Juan) 1,000 ml 30ML/HR GT 06/12/24 13:30 Diagnostic Test (Pha) (Accu-Chek Comfort Curve T) 1 strip ACHS 06/12/24 17:00 06/13/24 06:55 Insulin Human Regular (InsuLIN R) ACHS SC 06/12/24 17:00 06/13/24 07:00 Dextrose 50 ml UD PRN IV Blood Sugar LESS THAN 60 06/12/24 13:30 Vancomycin HCl 0 ml @ 0 mls/hr UD IV 06/12/24 14:30 Midazolam HCl 50 ml @ 1 mls/hr Q24H IV 06/13/24 06:45 06/13/24 06:40 Propofol 100 ml @ 2.727 mls/ hr Q24H IV 06/13/24 08:15 06/13/24 08:48 Review of Systems As above, the other systems are negative Vital Signs Vital Signs Date Time Temp Pulse Resp B/P (MAP) Pulse Ox O2 Delivery O2 Flow Rate FiO2 06/13/24 08:27 85 18 113/82 (92) 100 30 06/13/24 07:00 98.4 98.4 06/12/24 20:30 Mechanical Ventilator+ 06/11/24 14:00 8.0 Physical Exam The patient is well-nourished and well-developed with no distress. The patient is intubated HEENT: Normocephalic, neck supple, no carotid bruits Lungs: Clear to auscultation Cardiovascular: Regular rate and region, S1, S2, no murmurs Abdomen: Soft, nontender, normal bowel sounds MENTAL STATUS: HPI CRANIAL NERVES: Pupils are equal, round and reactive.There are corneal reflexes and doll's eyes phenomenon. No signs of facial weakness. There are gagging or coughing reflexes SENSATION: Responses to pain stimuli. MOTOR: Normal tone in the upper and lower extremity. Normal muscle bulk. No fasciculations. No spontaneous movement. REFLEXES: Deep tendon reflexes are symmetrical. No pathological reflexes. CEREBELLAR/COORDINATION: Deferred GAIT/STATION: deferred. Labs/Diagnostic Data Labs Test 06/13/24 06:49 06/13/24 06:46 06/13/24 05:49 06/12/24 15:17 Range/Units Blood Gas Specimen Type Arterial Blood Gas Sample Site Right radial Blood Gas Patient Temperature 37.0 Arterial Blood Date Drawn [id number] Arterial Blood pH 7.442 7.350-7.450 Arterial Blood Partial Pressure CO2 47.2 35.0-48.0 mmHg Arterial Blood Partial Pressure O2 66.2 L 83.0-108.0 mmHg Arterial Blood HCO3 31.5 H 21.0-28.0 mmol/L Arterial Blood Oxygen Saturation 91.4 L 94.0-98.0 % Arterial Blood Base Excess 6.3 H -2.0-3.0 mmol/L Arterial Blood Oxyhemoglobin 90.3 L 94.0-98.0 % Arterial Blood Carboxyhemoglobin 0.4 L 0.5-1.5 % Arterial Blood Methemoglobin 0.8 0.0-1.5 % Jun Test Modified Blood Gas Total Hemoglobin 14.00 13.5-17.5 g/dL Blood Gas Set Respiration Rate 18.0 Blood Gas Modality Vent - ac FiO2 % 30.0 Blood Gas Tidal Volume 400.0 Blood Gas PEEP or CPAP 5.0 POC Glucose 234 H 70-106 mg/dl White Blood Count 7.3 4.4-10.8 10^3/uL Red Blood Count 3.91 L 4.5-5.90 10^6/uL Hemoglobin 12.4 L 13.5-17.5 g/dL Hematocrit 35.8 L 41.0-53.0 % Mean Corpuscular Volume 91.6 80.0-100.0 fL Mean Corpuscular Hemoglobin 31.8 28.0-32.0 pg Mean Corpuscular Hemoglobin Concent 34.7 32.0-36.0 g/dL Red Cell Distribution Width 14.3 11.8-14.3 % Platelet Count 36 #L 140-450 10^3/uL Mean Platelet Volume 9.2 6.9-10.8 fL Neutrophils (%) (Auto) 92.6 H 37.0-80.0 % Lymphocytes (%) (Auto) 4.0 L 10.0-50.0 % Monocytes (%) (Auto) 3.0 0.0-12.0 % Eosinophils (%) (Auto) 0.0 0.0-7.0 % Basophils (%) (Auto) 0.4 0.0-2.0 % Neutrophils # (Auto) 6.7 1.6-8.6 10 ^3/uL Lymphocytes # (Auto) 0.3 L 0.4-5.4 10 ^3/uL Monocytes # (Auto) 0.2 0-1.3 10 ^3/uL Eosinophils # (Auto) 0 0-0.8 10 ^3/uL Basophils # (Auto) 0 0-0.2 10 ^3/uL Nucleated Red Blood Cells 0.1 % Platelet Estimate Decreased Sodium Level 142 136-145 mmol/L Potassium Level 4.5 3.5-5.1 mmol/L Chloride Level 104 98-107 mmol/L Carbon Dioxide Level 25 20-31 mmol/L Anion Gap 13 5-15 Blood Urea Nitrogen 45 H 9-23 mg/dL Creatinine 2.07 H 0.700-1.30 mg/dL Glomerular Filtration Rate Calc 32 >90 mL/min BUN/Creatinine Ratio 21.7 H 10.0-20.0 Serum Glucose 271 H 74-106 mg/dL Calcium Level 8.7 8.7-10.4 mg/dL Random Vancomycin Level 22.0 H 5-10 ug/mL Influenza Type A Antigen Negative Negative Influenza Type B Antigen Negative Negative SARS-CoV-2 Antigen (Rapid) Negative NEGATIVE Test 06/12/24 05:50 06/12/24 05:15 06/11/24 14:05 06/11/24 11:42 Range/Units Blood Gas Spontaneous Rate 18 Blood Gas Critical Value Read Back Yes Blood Gas Notified Whom lisset Claire md Blood Gas Notified Time [id number] Blood Gas Notified By Nasir henry rrt Total Bilirubin 1.7 H 0.2-1.0 mg/dL Aspartate Amino Transferase (AST) 40 13-40 U/L Alanine Aminotransferase (ALT) 40 7-40 U/L Alkaline Phosphatase 69 46-116 U/L Total Protein 4.4 L 5.7-8.2 g/dL Albumin 2.7 L 3.2-4.8 g/dL B-Type Natriuretic Peptide 581.15 0-100 pg/mL Troponin I High Sensitivity 158 *H </=54 ng/L Test 06/11/24 11:24 06/11/24 11:20 Range/Units Urine Color Light-yellow Yellow Urine Clarity Clear Clear Urine pH 6.0 5.0-9.0 Urine Specific [place] 1.011 1.001-1.035 Urine Protein Negative Negative Urine Ketones Negative Negative Urine Blood 1+ H Negative /uL Urine Nitrite Negative Negative Urine Bilirubin Negative Negative Urine Urobilinogen Normal Negative mg/dL Urine Leukocyte Esterase Negative Negative /uL Urine RBC 1 0 - 3 /hpf Urine Microscopic WBC < 1 0-3 /HPF Urine Squamous Epithelial Cells None seen <5 /hpf Urine Bacteria None seen None Seen /hpf Urine Hyaline Casts Few 0 - 2 /lpf Urine Glucose 1+ H Normal mg/dL Blood Gas Liter Flow 6.00 Microbiology Date/Time Source Procedure Growth Status 06/11/24 18:38 Lung Pending Resulted 06/11/24 18:38 Lung Pending Resulted 06/11/24 18:38 Lung Pending Resulted 06/11/24 18:38 Lung Pending Resulted 06/11/24 18:38 Lung - Final See Separate Report... Resulted 06/11/24 15:07 Sputum Expectorated Sputum Gram Stain - Final Resulted 06/11/24 15:07 Sputum Expectorated Sputum Respiratory Culture - Preliminary Resulted Assessment Altered mental status/Coma Hypoxic encephalopathy Metabolic encephalopathy Toxic encephalopathy ? Status epileptics New onset seizure activity ? Acute symptomatic seizure ? 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 Although this document has been carefully reviewed, there may still be some phonetic and typographical errors. These ar eas are purely typographical due to imperfections of the software programs, and do not reflect any compromise in the patient's medical care. Plan discussed with: Daughter, Other CALEB NORMAN MD Jun 13, 2024 09:33
[2024-06-13] MEDS ORDERED: ENOXAPARIN SOD 40 MG/0.4 ML SYRINGE SC SCH (10:00)
--- NOTE | 2024-06-13 10:25 | DVH ---
EXAM: CT HEAD WITHOUT CONTRAST INDICATION: acute cva TECHNIQUE: CT of the head without intravenous contrast. Coronal and sagittal reformatted images are submitted. Radiation Dose : 1. Head: CT Dose: CTDI volume is 60.92 mGy. Dose-length product is 1200.48 mGy*cm The dose indicators for CT are the volume Computed Tomography (CT) Dose Index (CTDIvol) and the Dose Length Product (DLP), and are measured in units of mGy and mGy-cm, respectively. These indicators are not patient dose, but values generated from the CT scanner acquisition factors. The report includes radiation exposure data for exposures received during this examination. All CT scans at this medical facility are performed using dose modulation techniques as appropriate to a performed exam including the following: Automated exposure control was utilized; adjustment of the MA and/or KV according to patient size; and use of iterative reconstruction technique. COMPARISON: CT HEAD WITHOUT CONTRAST on DOS: 05/27/24 FINDINGS: There is no evidence of acute intracranial hemorrhage, extra-axial collection, mass effect, midline s hift, herniation or hydrocephalus. There are periventricular and subcortical hypodensities, nonspecific, but likely reflecting sequelae of chronic microvascular ischemic changes. The ventricles, sulci and cisterns are age appropriate. The hess-white differentiation is intact. The visualized paranasal sinuses and mastoid air cells are clear. No depressed calvarial fracture. The surrounding soft tissues are unremarkable. IMPRESSION: 1. No evidence of acute intracranial abnormality.
[2024-06-13] MEDS: FREE WATER GT SCH (12:10)
--- NOTE | 2024-06-13 12:40 | ECG ---
[facility] Test Date: 2024-06-11 Test Time: 11:14:06 Pat Name: PHYLICIA POST Department: ER Room: [address] [place] [address] A Gender: M Interventional Radiologist: NADEEM : 1945 Requested By: JOSE JUAN ENCISO Order Number: [id number] Reading MD: Liang Farrell Measurements Intervals [place] Rate: 83 P: 113 ND: 51 QRS: -23 QRSD: 118 T: 151 QT: 406 QTc: 477 Interpretive Statements Sinus rhythm Multiform ventricular premature complexes Short ND interval Nonspecific intraventricular conduction delay Inferior infarct, old Lateral leads are also involved Artifact in lead(s) I,II,aVR,aVL,aVF,V6 Electronically Signed On 06-13-2024 13:20:24 PST by Liang Farrell Please click the below link to view image of tracing.
--- NOTE | 2024-06-13 15:40 | DVH ---
MRI BRAIN WITHOUT CONTRAST CLINICAL HISTORY: New onset seizure TECHNIQUE: Multiplanar, multisequence MR images of the brain without intravenous contrast. Comparison: CT head 06/13/2024. FINDINGS: There is no restricted diffusion. There are [id number] chronic small-vessel ischemic changes in the supratentorial white matter. There is a tiny chronic lacunar infarct in the left thalamus. There is no evidence of hemorrhage, mass, mass effect or midline shift. There is no hydrocephalus or extra -axial fluid collection. The visualized intracranial vasculature demonstrates appropriate flow-voids. The sagittal midline structures appear unremarkable. The craniocervical junction is within normal li mits. The calvarium demonstrates normal marrow signal. There is trace fluid in the bilateral mastoid air cells. Paranasal sinuses are clear. IMPRESSION: 1. There is no acute intracranial process. HS:Y
[2024-06-13 21:36] LABS: Basophils # (auto) 0.2 10 ^3/uL (0-0.2); Basophils % (auto) 1.3 % (0.0-2.0); Eosinophils # (auto) 0 10 ^3/uL (0-0.8); Hemoglobin 12.6 g/dL (13.5-17.5); Lymphocytes # (auto) 0.4 10 ^3/uL (0.4-5.4); Lymphocytes % (auto) 2.9 % (10.0-50.0); Mean Corpuscular Hemoglobin 30.3 pg (28.0-32.0); Mean Corpuscular Hgb Conc. 33.2 g/dL (32.0-36.0); Mean Corpuscular Volume 91.2 fL (80.0-100.0); Monocytes # (auto) 0.4 10 ^3/uL (0-1.3); Monocytes % (auto) 2.9 % (0.0-12.0); Neutrophils # (auto) 13.4 10 ^3/uL (1.6-8.6); Neutrophils % (auto) 92.9 % (37.0-80.0); Nucleated Red Blood Cells % 0.2 %; Platelet Count (auto) 94 10^3/uL (140-450); Red Blood Cells 4.17 10^6/uL (4.5-5.90); Red Cell Distribution Width 14.7 % (11.8-14.3); White Blood Cell 14.4 10^3/uL (4.4-10.8)
--- NOTE | 2024-06-13 22:02 | DVH ---
CHEST RADIOGRAPH Indication: new onset bradycardia Technique: Single frontal view of the chest was obtained Comparison: XY CHEST XRAY 1 VIEW on DOS: 06/13/24, XY CHEST PORTABLE on DOS: 06/12/24, XY CHEST XRAY 1 EW on DOS: 06/11/24 FINDINGS: Lines and Tubes: Endotracheal tube, enteric tube and right IJ approach central venous catheter in sat isfactory position. Lungs: No focal consolidation. Mild interstitial prominence. Pleura: No effusion. No pneumothorax. Cardiomediastinal contours: Unremarkable Bones: No acute osseous abnormality. IMPRESSION: Mild pulmonary vascular congestion. Endotracheal tube, enteric tube and right IJ approach central venous catheter in satisfactory positio n.
--- NOTE | 2024-06-13 23:03 | DVHPN2 ---
Progress Note - Dictate Date Seen: Jun 13, 2024 Medical Necessity Reason Pt with a Central, PICC or Fol: Yes The following are medically ne: Garcia Catheter Reason for garcia catheter: Strict I&O Subjective Patient seen and examined at bedside. Sedated, intubated on mechanical ventilator. Overnight events reviewed. vital signs Vital Sign Date Time Temp Pulse Resp B/P (MAP) Pulse Ox O2 Delivery O2 Flow Rate FiO2 06/13/24 22:00 123/73 06/13/24 21:06 50 06/13/24 20:45 97.7 18 99 97.7 06/13/24 20:26 30 06/13/24 19:30 Mechanical Ventilator+ 06/11/24 14:00 8.0 Total Intake and Output 06/12/24 06/12/24 06/13/24 15:00 23:00 07:00 Intake Total 75.50 ml 62.00 ml 78.75 ml Output Total 200 ml Balance 75.50 ml -138.00 ml 78.75 ml medications Current Medications Medications Dose Ordered Sig/Mindy Route Start Time Stop Time Status Last Admin Dose Admin Albuterol 2.5 mg Q4HPRN PRN NEB 06/11/24 13:45 Ipratropium [place] 0.5 mg Q4HPRN PRN NEB 06/11/24 13:45 Methylprednisolone Sodium Succinate 40 mg Q8HR IV 06/11/24 14:00 06/13/24 22:18 40 MG Sodium Chloride 10 ml Q8HR IV 06/11/24 14:00 06/13/24 22:17 10 ML Ondansetron HCl 4 mg Q4HP PRN IV 06/11/24 13:45 Docusate Sodium 100 mg BIDPRN PRN PO 06/11/24 13:45 Acetaminophen 650 mg Q6HP PRN PO 06/11/24 13:45 Nitroglycerin 0.4 mg Q5MINP PRN SL 06/11/24 16:00 Morphine Sulfate 2 mg Q30M PRN IV 06/11/24 16:00 Norepinephrine Bitartrate 250 ml @ 3.75 mls/hr Q24H IV 06/11/24 16:15 06/13/24 18:08 3.75 MLS/HR Fentanyl Citrate 250 ml @ 2.5 mls/hr Q24H IV 06/11/24 16:15 06/13/24 13:00 7.5 MLS/HR Atorvastatin Calcium 40 mg HS PO 06/12/24 22:00 06/13/24 22:18 40 MG Enteral Nutritional Formula 1,000 ml 30ML/HR GT 06/12/24 13:30 Diagnostic Test (Pha) 1 strip ACHS 06/12/24 17:00 06/13/24 22:16 1 STRIP Insulin Human Regular ACHS SC 06/12/24 17:00 06/13/24 22:22 4 UNITS Dextrose 50 ml UD PRN IV 06/12/24 13:30 Midazolam HCl 50 ml @ 1 mls/hr Q24H IV 06/13/24 06:45 06/13/24 06:40 5 MLS/HR Propofol 100 ml @ 2.727 mls/ hr Q24H IV 06/13/24 08:15 06/13/24 20:21 8.181 MLS/HR Purified Water 100 ml Q6HR GT 06/13/24 12:00 06/13/24 17:44 100 ML Lorazepam 1 mg Q5MINP PRN IV 06/13/24 09:15 Lorazepam 1 mg Q5MINP PRN IV 06/13/24 10:45 objective Gen.: Patient lying in bed in medical ICU. Sedated, intubated on mechanical ventilator Head: Normocephalic, atraumatic. Eyes: PERRLA. Ears: Normal external anatomy. Throat: Endotracheal tube and orogastric tube in place. Neck: Supple, trachea midline. Chest: Transmitted breath sounds bilaterally. Decreased air entry bilaterally. No wheezing. Bibasilar crackles. Cardiovascular: Positive S1, positive S2. Regular rate and rhythm. Abdomen: Positive bowel sounds in all 4 quadrants. Soft, nontender, nondistended. : Garcia in place. Normal external genitalia. Rectal: Deferred. Skin: Warm, dry. Intact. Extremities: 2+ radial pulses bilaterally. No lower extremity edema. Neuro: Sedated laboratory and microbiology Laboratory Tests 06/13/24 21:06 06/13/24 05:49 Test 06/13/24 05:49 Range/Units Serum Glucose 271 H 74-106 mg/dL Assessment/Plan Impression: Acute on chronic hypoxic respiratory failure On mechanical ventilator Acute exacerbation of COPD Morbid obesity Shock, hypovolemic versus sepsis Hemoptysis Elevated troponin Pulmonary vascular congestion Events: Remains on vent support Vent settings; respiratory rate of 18, tidal volume 400, PEEP of 5, FiO2 at 30%. Patient had seizure Resumed on Versed and Propofol for sedation Fentanyl for analgesia ABG reviewed, compensated CXR demonstrates Mild pulmonary vascular congestion. No effusion or pneumothorax Brain MRI revealed no e/o acute stroke or ICH Patient is pale Obtain CBC STAT. On Levophed for hemodynamic support. Titrate to keep MAP above 65 mmHg/SBP above 90 mmHg.. Continue antibiotics. Continue bronchodilators. Continue steroids Stop Lovenox d/t low platelet count Monitor renal function Monitor electrolytes. Supplement as necessary. Monitor ins and outs Labs and imaging reviewed. Rest of plan as noted below. Plan: s/p intubation on mechanical ventilator Vent settings; respiratory rate of 18, tidal volume 400, PEEP of 5, FiO2 at 30%. Titrate FIO2 to keep O2 saturation above 92%. VAP bundle Daily ABG and CXR while intubated. Sedated Pressors for hemodynamic support. Titrate to keep MAP above 65 mmHg/SBP above 90 mmHg. Elevated troponin Follow up Cardiology recommendations Continue antibiotics. F/u cultures. Follow up left lower lobe BAL Monitor renal function due to Acute kidney injury. Monitor electrolytes. Supplement as necessary. Monitor ins and outs Nutritional support. Start tube feeds Accucheks, ISS. GI/DVT prophylaxis. Condition: Critical Prognosis: Poor given multiple comorbidities. Rest of plan per hospitalist and other consultants. A total of 35 minutes of critical care time was spent reviewing the patient record, examining the patient, making a diagnostic and therapeutic plan, discussing this plan with the medical personnel, following up on diagnostic studies and following the patient for clinical stability excluding any and all procedures. At least 50% of this time was spent in direct, [id number] contact. Thank you RAFA Blackwell for allowing me to participate in this patient's care. Further recommendations will depend on patient's clinical course. Please do not hesitate to contact me if you have any questions or concerns. This medical document was created using an electronic medical record system with [email or web address] system. Although this document has been carefully reviewed, there may still be some phonetic and typographical errors. These areas are purely typographical due to imperfections of the software programs, and do not reflect any compromise in the patient's medical care. Plan discussed with: Other (RN) Critical Care Time(min): 35 ROMERO,RYAN M MD Jun 13, 2024 23:03
[2024-06-14] VITALS (85 sets, daily range): BP systolic 92–155; BP diastolic 55–101; PULSE 52–104; RESP 13–19; TEMP 97.6–98.8; O2SAT 82–100
--- NOTE | 2024-06-14 00:27 | DVHEEG2 ---
Neurology EEG Procedural Note Procedural Note EXAM DATE: 06/13/2024 REFERRING DOCTOR: Dr. Norman TECHNIQUE: Eighteen channels of EEG, 2 channels of EOG, and 1 channel of EKG were recorded using the International 10/20 system. CLINICAL DATA: The patient was referred for an EEG evaluation for the evidence of seizure disorder. MEDICATIONS: See chart BACKGROUND ACTIVITY: The record showed low-amplitude diffuse theta activity over both hemispheres, that was reactive to external stimuli ACTIVATION: Hyperventilation: Not done Photic Stimulation: Not done Sleep: Nonresponsiveness IMPRESSION: This is a mildly abnormal EEG. This EEG is seen in mild cerebral dysfunction due to metabolic/hypoxic encephalopathy or medication effect, please correlate clinically. The EKG channel showed a regular heart rate of 102 per minute[place] [address] CALEB NORMAN MD Jun 14, 2024 00:27
[2024-06-14] MEDS: IPRATROPIUM BROM 0.5 MG/2.5ML INH SOL NEB PRN (06:29)
[2024-06-14] MEDS: ALBUTEROL SULF 2.5 MG/0.5ML(0.5%) NEB SOLN NEB PRN (06:29)
[2024-06-14 08:07] LABS: Base Excess 2.5 mmol/L (-2.0-3.0)
--- NOTE | 2024-06-14 09:03 | DVHPN2 ---
Subjective Patient chemically sedated Reviewed: Care Plan, H&P, Labs, Medications, Previous Orders, Radiology Changes from previous H/P or p: No Changes Eyes: No Pain, No Vision change, No Conjunctivae inflammation, No Eyelid inflammation, No Other, No Redness ENT: No Ear pain, No Ear discharge, No Nose pain, No Nose discharge, No Nose congestion, No Mouth pain, No Mouth swelling, No Throat pain, No Throat swelling, No Other Cardiovascular: Chest Pain; No Palpitations, No Orthopnea, No Paroxysmal Noc. Dyspnea, No Edema, No Lt Headedness, No Other Respiratory: No Cough, No Dry; Shortness of breath, SOB with excertion; No Wheezing, No Hemoptysis, No Pleuritic Pain, No Sputum; Other (SOB at rest) Gastrointestinal: No Nausea, No Vomiting, No Abdominal Pain, No Diarrhea, No Constipation, No Melena, No Hematochezia, No Other Genitourinary: No Dysuria, No Frequency, No Incontinence, No Hematuria, No Retention, No Other Musculoskeletal: No other, No neck pain, No shoulder pain, No arm pain, No back pain, No hand pain, No leg pain, No foot pain Skin: No Rash, No Lesions, No Jaundice, No Bruising, No Other Objective Vitals Vital Signs Date Time Temp Pulse Resp B/P (MAP) Pulse Ox O2 Delivery O2 Flow Rate FiO2 06/14/24 08:31 87 18 113/80 (91) 95 40 06/14/24 06:00 Mechanical Ventilator+ 06/14/24 05:00 98.8 98.8 Intake/Output Intake and Output 06/14/24 07:00 Intake Total 661.60 ml Output Total 875 ml Balance -213.40 ml Intake Oral 200 ml IV Total 416.60 ml Tube Feeding 45 ml Output Urine Total 875 ml General Appearance: Other (sedated ) HEENT: Mucous membr. moist/pink, Other (Pupils four and nonreactive) Lungs: Clear to auscultation Cardiovascular: Normal S1, Normal S2 Abdomen: Normal bowel sounds, Soft Extremities: No clubbing, No cyanosis, Other (bilateral leg edema ) Skin: Dry, Intact Psych/Mental Status: Other (intubated and seated ) Medications Current Medications Medications Dose Ordered Sig/Mindy Route Start Time Stop Time Status Last Admin Dose Admin Albuterol 2.5 mg Q4HPRN PRN NEB 2/3/25 13:45 06/14/24 06:29 2.5 MG Ipratropium [place] 0.5 mg Q4HPRN PRN NEB 06/11/24 13:45 06/14/24 06:29 0.5 MG Methylprednisolone Sodium Succinate 40 mg Q8HR IV 06/11/24 14:00 06/14/24 06:00 40 MG Sodium Chloride 10 ml Q8HR IV 06/11/24 14:00 06/14/24 06:00 10 ML Ondansetron HCl 4 mg Q4HP PRN IV 06/11/24 13:45 Docusate Sodium 100 mg BIDPRN PRN PO 06/11/24 13:45 Acetaminophen 650 mg Q6HP PRN PO 06/11/24 13:45 Nitroglycerin 0.4 mg Q5MINP PRN SL 06/11/24 16:00 Morphine Sulfate 2 mg Q30M PRN IV 06/11/24 16:00 Norepinephrine Bitartrate 250 ml @ 3.75 mls/hr Q24H IV 06/11/24 16:15 06/13/24 18:08 3.75 MLS/HR Fentanyl Citrate 250 ml @ 2.5 mls/hr Q24H IV 06/11/24 16:15 06/13/24 13:00 7.5 MLS/HR Atorvastatin Calcium 40 mg HS PO 06/12/24 22:00 06/13/24 22:18 40 MG Enteral Nutritional Formula 1,000 ml 30ML/HR GT 06/12/24 13:30 Diagnostic Test (Pha) 1 strip ACHS 06/12/24 17:00 06/14/24 07:35 1 STRIP Insulin Human Regular ACHS SC 06/12/24 17:00 06/14/24 07:40 4 UNITS Dextrose 50 ml UD PRN IV 06/12/24 13:30 Midazolam HCl 50 ml @ 1 mls/hr Q24H IV 06/13/24 06:45 06/13/24 06:40 5 MLS/HR Propofol 100 ml @ 2.727 mls/ hr Q24H IV 06/13/24 08:15 06/13/24 20:21 8.181 MLS/HR Purified Water 100 ml Q6HR GT 06/13/24 12:00 06/14/24 06:00 100 ML Lorazepam 1 mg Q5MINP PRN IV 06/13/24 09:15 Lorazepam 1 mg Q5MINP PRN IV 06/13/24 10:45 Insulin Glargine 15 units DAILY@1000 SC 06/14/24 10:00 Laboratory Results Laboratory Tests 06/13/24 05:49 06/13/24 21:06 06/14/24 04:59 Urinalysis Test 06/11/24 11:24 Urine Color Light-yellow (Yellow) Urine Clarity Clear (Clear) Urine pH 6.0 (5.0-9.0) Urine Specific [place] 1.011 (1.001-1.035) Urine Protein Negative (Negative) Urine Ketones Negative (Negative) Urine Blood 1+ /uL (Negative) H Urine Nitrite Negative (Negative) Urine Bilirubin Negative (Negative) Urine Urobilinogen Normal mg/dL (Negative) Urine Leukocyte Esterase Negative /uL (Negative) Urine RBC 1 /hpf (0 - 3) Urine Microscopic WBC < 1 /HPF (0-3) Urine Squamous Epithelial Cells None seen /hpf (<5) Urine Bacteria None seen /hpf (None Seen) Urine Hyaline Casts Few /lpf (0 - 2) Urine Glucose 1+ mg/dL (Normal) H Blood Gas Results Test 06/14/24 07:37 Arterial Blood pH 7.391 (7.350-7.450) FiO2 % 40.0 Microbiology Microbiology Date/Time Source Procedure Growth Status 06/12/24 11:30 Blood Blood Culture - Preliminary NO GROWTH AFTER 24 HOURS OF INCUBATION. Resulted 06/11/24 18:38 Lung Pending Resulted 06/11/24 18:38 Lung Pending Resulted 06/11/24 18:38 Lung Pending Resulted 06/11/24 18:38 Lung Pending Resulted 06/11/24 18:38 Lung - Final See Separate Report... Resulted 06/11/24 18:38 Bronchial Brushings Gram Stain - Final Resulted 06/11/24 18:38 Bronchial Brushings Respiratory Culture - Preliminary Resulted Labs and/or images reviewed: Labs reviewed by me, Image(s) reviewed by me Assessment/Plan Assessment/Plan Impression: -acute on chronic hypoxic and hypercarbic respiratory failure -COPD with exacerbation -recent history of Staphylococcus aureus pneumonia -obesity -thrombocytopenia -atrial fibrillation -obesity -acute kidney injury, probable vasomotor nephropathy -acute on chronic systolic and diastolic heart failure Plan: Events: CT head, MRI head negative. CPAP trial daily -continue current sedation, Ativan for breakthrough seizure activity -continue tube feeding -stop vancomycin given worsening renal function. Start Levaquin for Staphylococcus aureus in sputum -pulmonology consultation: Patient had bronchoscopy, plans for spontaneous breathing trial today. Recommend to hold given new seizure activity. Ventilator management. -cardiology consultation: Recommendations reviewed -start free water 100 mL every 6 hours -repeat labs, chest x-ray, ABG in a.m. Critical care time spent with patient discussing and formulating plan of care: 40 minutes. This does not include time spent performing procedures. This medical document was created using an electronic medical record system with [employer] dictation system. Although this document has been carefully reviewed, there may still be some phonetic and typographical errors. These areas are purely typographical due to imperfections of the software programs, and do not reflect any compromise in the patient's medical care. Plan discussed with: Patient, Other (RN) My Orders Orders - YOLI KAY NP Procedure Category Date Status Time Head Without Contrast CT 06/13/24 Resulted 09:09 Free Water PHA 06/13/24 In Process 12:00 Lorazepam 2mg/Ml Inj PHA 06/13/24 In Process (Ativan Inj) 09:15 Insulin Lantus PHA 06/14/24 In Process (Glargine) (Lantus) 10:00 Basic Metabolic Panel LAB 06/15/24 Verified 04:00 Complete Blood Count LAB 06/15/24 Verified 04:00 Date of Service: Jun 14, 2024 Billing Provider: YOLI KAY NP Common Visit Codes: 47079-WVF/OBS DISCH DAY >30min YOLI KAY NP Jun 14, 2024 09:03
--- NOTE | 2024-06-14 09:15 | DVHPN2 ---
Progress Note - Dictate Date Seen: Jun 14, 2024 Medical Necessity Reason Pt with a Central, PICC or Fol: Yes The following are medically ne: Garcia Catheter Reason for garcia catheter: Strict I&O Subjective Mr. Jeffry Cummins is a 79 years old right-handed gentleman with a history of hypertension, coronary artery disease, heart attack, COPD, he came to the [facility] on 06/11/2024 with a chief company of shortness of breath for 2 hours. The patient was intubated on 06/11/2024 in the emergency room. I saw him on 05/29/2024 for altered mental status He had seizure-like activity in the ER on 06/13/2024 I have seen and examined the patient, I have discussed with his nurse, his daughter in the room. He was sedated, intubated, slight responds to strong painful stimuli Fentanyl 50 mcg/hour, Versed 3 mg/hour, levo 2 mcg/minute Urinalysis, 06/12/2024: WBC: 1, urine leukocyte esterase: Negative ABG, 06/13/2024, pCO2: 66.3, HCO3: 31.5 WBC/HB/PLT/MCV, 05/25/2024: 17.9/14.4/211/93.1, 05/29/2024: 10.8/13.9/190/91.6, 06/03/2024: 21.3/316/178/90.7, 06/12/2024: 0.8/11.8/101/91.2, 06/13/2024: 7.3/12.4/36/91.6 BUN/CR, 05/29/2024: 28/0.78, 06/28/2024, 39/1.29 HGB A1c, 05/23/24: 6.5 TBI/AST/ALT/AP, 06/12/2024: 1.7/40/40/69 TG/HDL/LDL/HDL, 05/23/2024: 118/112/48/49 TSH, 05/23/2024: 0.71 EEG, 06/13/2024: Mildly abnormal Chest X ray, 06/11/2024: ETT tip is at the karoline. Retraction by [address] head, 05/20/2024: 1. Global brain atrophy and chronic schema changes without evidence of acute intracranial process. 2. Punctate intra-axial and extra-axial calcifications may be due to remote history of TORCH infection. 3. Mild bilateral maxillary and ethmoid sinus disease. MR head, 06/13/2024: There is no acute intracranial process. vital signs Vital Sign Date Time Temp Pulse Resp B/P (MAP) Pulse Ox O2 Delivery O2 Flow Rate FiO2 06/14/24 08:31 87 18 113/80 (91) 95 40 06/14/24 06:00 Mechanical Ventilator+ 06/14/24 05:00 98.8 98.8 Total Intake and Output 06/13/24 06/13/24 06/14/24 15:00 23:00 07:00 Intake Total 158.70 ml 397.15 ml 105.75 ml Output Total 875 ml Balance 158.70 ml -477.85 ml 105.75 ml medications Current Medications Medications Dose Ordered Sig/Mindy Route Start Time Stop Time Status Last Admin Dose Admin Albuterol 2.5 mg Q4HPRN PRN NEB 06/11/24 13:45 06/14/24 06:29 2.5 MG Ipratropium [place] 0.5 mg Q4HPRN PRN NEB 06/11/24 13:45 06/14/24 06:29 0.5 MG Methylprednisolone Sodium Succinate 40 mg Q8HR IV 06/11/24 14:00 06/14/24 06:00 40 MG Sodium Chloride 10 ml Q8HR IV 06/11/24 14:00 06/14/24 06:00 10 ML Ondansetron HCl 4 mg Q4HP PRN IV 06/11/24 13:45 Docusate Sodium 100 mg BIDPRN PRN PO 06/11/24 13:45 Acetaminophen 650 mg Q6HP PRN PO 06/11/24 13:45 Nitroglycerin 0.4 mg Q5MINP PRN SL 06/11/24 16:00 Morphine Sulfate 2 mg Q30M PRN IV 06/11/24 16:00 Norepinephrine Bitartrate 250 ml @ 3.75 mls/hr Q24H IV 06/11/24 16:15 06/13/24 18:08 3.75 MLS/HR Fentanyl Citrate 250 ml @ 2.5 mls/hr Q24H IV 06/11/24 16:15 06/13/24 13:00 7.5 MLS/HR Atorvastatin Calcium 40 mg HS PO 06/12/24 22:00 06/13/24 22:18 40 MG Enteral Nutritional Formula 1,000 ml 30ML/HR GT 06/12/24 13:30 Diagnostic Test (Pha) 1 strip ACHS 06/12/24 17:00 06/14/24 07:35 1 STRIP Insulin Human Regular ACHS SC 06/12/24 17:00 06/14/24 07:40 4 UNITS Dextrose 50 ml UD PRN IV 06/12/24 13:30 Midazolam HCl 50 ml @ 1 mls/hr Q24H IV 06/13/24 06:45 06/13/24 06:40 5 MLS/HR Propofol 100 ml @ 2.727 mls/ hr Q24H IV 06/13/24 08:15 06/13/24 20:21 8.181 MLS/HR Purified Water 100 ml Q6HR GT 06/13/24 12:00 06/14/24 06:00 100 ML Lorazepam 1 mg Q5MINP PRN IV 06/13/24 09:15 Lorazepam 1 mg Q5MINP PRN IV 06/13/24 10:45 Insulin Glargine 15 units DAILY@1000 SC 06/14/24 10:00 Aspirin 81 mg DAILY PO 06/14/24 10:00 UNV objective The patient is well-nourished and well-developed with no distress. The patient is intubated MENTAL STATUS: Subjective CRANIAL NERVES: Pupils are equal, round and reactive.There are corneal reflexes and doll's eyes phenomenon. No signs of facial weakness. There are weak gagging or coughing reflexes SENSATION: Responses to pain stimuli. MOTOR: Normal tone in the upper and lower extremity. Normal muscle bulk. No fasciculations. No spontaneous movement. REFLEXES: Deep tendon reflexes are symmetrical. No pathological reflexes. CEREBELLAR/COORDINATION: Deferred GAIT/STATION: deferred. laboratory and microbiology Laboratory Tests 06/14/24 04:59 06/13/24 21:06 06/13/24 05:49 Test 06/13/24 05:49 Range/Units Serum Glucose 271 H 74-106 mg/dL Problem List Altered mental status/Coma Hypoxic encephalopathy Metabolic encephalopathy Toxic encephalopathy ? Status epileptics New onset seizure activity ? Acute symptomatic seizure ? 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 Although this document has been carefully reviewed, there may still be some phonetic and typographical errors. These areas are purely typographical due to imperfections of the software programs, and do not reflect any compromise in the patient's medical carecercosis Acute on chronic respiratory failure Pneumonia Prognosis poor Plan discussed with: Daughter, Other Critical Care Time(min): 35 CALEB NORMAN MD Jun 14, 2024 09:15
[2024-06-14] MEDS: INSULIN LANTUS (GLARGINE) 1 /0.01ml (100units/ml) SC SCH (09:53)
--- NOTE | 2024-06-14 10:39 | ECG ---
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
[2024-06-14] MEDS: ASPirin 81 mg TAB PO SCH (12:27)
--- NOTE | 2024-06-14 13:19 | ECG ---
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
[2024-06-14] MEDS: NOREPINEPHRINE 8 MG/250ML KIT 250 ML IV SCH (15:45)
[2024-06-14] MEDS: methylPREDNISolone SOD SUCC 40 MG/ML VL IV SCH (21:35)
--- NOTE | 2024-06-14 23:06 | DVHPN2 ---
Progress Note - Dictate Date Seen: Jun 14, 2024 Medical Necessity Reason Pt with a Central, PICC or Fol: Yes The following are medically ne: Garcia Catheter Reason for garcia catheter: Strict I&O Subjective Patient seen and examined at bedside. Sedated, intubated on mechanical ventilator. Overnight events reviewed. vital signs Vital Sign Date Time Temp Pulse Resp B/P (MAP) Pulse Ox O2 Delivery O2 Flow Rate FiO2 06/14/24 22:00 18 Mechanical Ventilator+ 40 40 06/14/24 22:00 58 153/89 (110) 99 06/14/24 16:00 98.8 98.8 Total Intake and Output 06/13/24 06/13/24 06/14/24 15:00 23:00 07:00 Intake Total 158.70 ml 397.15 ml 121.00 ml Output Total 875 ml Balance 158.70 ml -477.85 ml 121.00 ml medications Current Medications Medications Dose Ordered Sig/Mindy Route Start Time Stop Time Status Last Admin Dose Admin Albuterol 2.5 mg Q4HPRN PRN NEB 06/11/24 13:45 06/14/24 06:29 2.5 MG Ipratropium [place] 0.5 mg Q4HPRN PRN NEB 06/11/24 13:45 06/14/24 06:29 0.5 MG Sodium Chloride 10 ml Q8HR IV 06/11/24 14:00 06/14/24 15:07 10 ML Ondansetron HCl 4 mg Q4HP PRN IV 06/11/24 13:45 Docusate Sodium 100 mg BIDPRN PRN PO 06/11/24 13:45 Acetaminophen 650 mg Q6HP PRN PO 06/11/24 13:45 Nitroglycerin 0.4 mg Q5MINP PRN SL 06/11/24 16:00 Morphine Sulfate 2 mg Q30M PRN IV 06/11/24 16:00 Fentanyl Citrate 250 ml @ 2.5 mls/hr Q24H IV 06/11/24 16:15 06/14/24 19:33 5 MLS/HR Atorvastatin Calcium 40 mg HS PO 06/12/24 22:00 06/14/24 21:35 40 MG Enteral Nutritional Formula 1,000 ml 30ML/HR GT 06/12/24 13:30 Diagnostic Test (Pha) 1 strip ACHS 06/12/24 17:00 06/14/24 21:35 1 STRIP Insulin Human Regular ACHS SC 06/12/24 17:00 06/14/24 21:36 4 UNITS Dextrose 50 ml UD PRN IV 06/12/24 13:30 Midazolam HCl 50 ml @ 1 mls/hr Q24H IV 06/13/24 06:45 06/14/24 19:43 2 MLS/HR Propofol 100 ml @ 2.727 mls/ hr Q24H IV 06/13/24 08:15 06/13/24 20:21 8.181 MLS/HR Purified Water 100 ml Q6HR GT 06/13/24 12:00 06/14/24 18:11 100 ML Lorazepam 1 mg Q5MINP PRN IV 06/13/24 10:45 Insulin Glargine 15 units DAILY@1000 SC 06/14/24 10:00 06/14/24 09:53 15 UNITS Aspirin 81 mg DAILY PO 06/14/24 10:00 06/14/24 12:27 81 MG Norepinephrine Bitartrate 250 ml @ 1.875 mls/ hr Q24H IV 06/14/24 15:45 Methylprednisolone Sodium Succinate 40 mg Q12HR IV 06/14/24 22:00 06/14/24 21:35 40 MG objective Gen.: Patient lying in bed in medical ICU. Sedated, intubated on mechanical ventilator Head: Normocephalic, atraumatic. Eyes: PERRLA. Ears: Normal external anatomy. Throat: Endotracheal tube and orogastric tube in place. Neck: Supple, trachea midline. Chest: Transmitted breath sounds bilaterally. Decreased air entry bilaterally. No wheezing. Bibasilar crackles. Cardiovascular: Positive S1, positive S2. Regular rate and rhythm. Abdomen: Positive bowel sounds in all 4 quadrants. Soft, nontender, nondistended. : Garcia in place. Normal external genitalia. Rectal: Deferred. Skin: Warm, dry. Intact. Extremities: 2+ radial pulses bilaterally. No lower extremity edema. Neuro: Sedated laboratory and microbiology Laboratory Tests 06/14/24 04:59 06/13/24 21:06 06/13/24 05:49 Test 06/13/24 05:49 Range/Units Serum Glucose 271 H 74-106 mg/dL Assessment/Plan Impression: Acute on chronic hypoxic respiratory failure On mechanical ventilator Acute exacerbation of COPD Morbid obesity Shock, hypovolemic versus sepsis Hemoptysis Elevated troponin Pulmonary vascular congestion Events: Remains on vent support Vent settings; respiratory rate of 18, tidal volume 400, PEEP of 5, FiO2 at 30 -->40%. Patient had seizure yesterday Remains on Versed for sedation Stopped Propofol due to bradycardia Fentanyl for analgesia Taper Versed as tolerated Obtain EEG. ABG reviewed, compensated On Levophed 1 mcg/min for hemodynamic support. Titrate to keep MAP above 65 mmHg/SBP above 90 mmHg.. Continue bronchodilators. Continue steroids - taper Solu-Medrol to q.12 hours Accu-Cheks q.6 hours Lovenox on hold d/t low platelet count Tube feeds for nutritional support Free water supplementation Monitor renal function Monitor electrolytes. Supplement as necessary. Monitor ins and outs Labs and imaging reviewed. Rest of plan as noted below. Plan: s/p intubation on mechanical ventilator Vent settings; respiratory rate of 18, tidal volume 400, PEEP of 5, FiO2 at 40%. Titrate FIO2 to keep O2 saturation above 92%. VAP bundle Daily ABG and CXR while intubated. Sedated Pressors for hemodynamic support. Titrate to keep MAP above 65 mmHg/SBP above 90 mmHg. Elevated troponin Cardiology recommendations appreciated Continue bronchodilators. Continue steroids F/u cultures. Monitor renal function due to Acute kidney injury. Monitor electrolytes. Supplement as necessary. Monitor ins and outs Nutritional support. Tube feeds Accu-Cheks, ISS GI/DVT prophylaxis. Condition: Critical Prognosis: Poor given multiple comorbidities. Rest of plan per hospitalist and other consultants. A total of 35 minutes of critical care time was spent reviewing the patient record, examining the patient, making a diagnostic and therapeutic plan, discussing this plan with the medical personnel, following up on diagnostic studies and following the patient for clinical stability excluding any and all procedures. At least 50% of this time was spent in direct, [id number] contact. Thank you RAFA Blackwell for allowing me to participate in this patient's care. Further recommendations will depend on patient's clinical course. Please do not hesitate to contact me if you have any questions or concerns. This medical document was created using an electronic medical record system with [employer] system. Although this document has been carefully reviewed, there may still be some phonetic and typographical errors. These areas are purely typographical due to imperfections of the software programs, and do not reflect any compromise in the patient's medical care. Dietary Evaluation Review Comments: 1. Pt's current feeding Glucerna 30ml/hr (43g pro, 864 kcal) x 24 hr will support 79% Pro and 87% kcal, if kidney failure is considered. 2. Pt's protein requirement is 134g if his kidney function improves while still on vent. 3. CCHO-60 diet if no renal failure when Pt is off vent and passing speech eval. 4. CCHO-60 with renal specific 50 gprotein restriction when pt is off vent passing speech eval and has KD. 5. CCHO-60 Renal Standard if pt is off vent with renal failure and on dialysis and pass speech eval. Expected Outcomes/Goals: controlled glucose level, minimized nephrotic syndrome. gradual wt loss. Plan discussed with: Other (MALICK Shell) Critical Care Time(min): 35 RYAN ROMERO MD Jun 14, 2024 23:06
[2024-06-15] VITALS (106 sets, daily range): BP systolic 55–176; BP diastolic 33–100; PULSE 54–115; RESP 9–30; TEMP 98.2–99.1; O2SAT 86–100
[2024-06-15 03:53] LABS: Hematocrit 39.8 % (41.0-53.0); Hemoglobin 13.4 g/dL (13.5-17.5); Mean Corpuscular Hemoglobin 31.1 pg (28.0-32.0); Mean Corpuscular Hgb Conc. 33.7 g/dL (32.0-36.0); Mean Corpuscular Volume 92.3 fL (80.0-100.0); Platelet Count (auto) 73 10^3/uL (140-450); Red Blood Cells 4.31 10^6/uL (4.5-5.90); Red Cell Distribution Width 14.8 % (11.8-14.3); White Blood Cell 13.1 10^3/uL (4.4-10.8)
[2024-06-15 03:58] LABS: Basophils % (manual) 0 (0.0-2.0); Blast Cells 0; Eosinophils % (manual) 0 (0-7); Metamyelocytes % 0; Myelocytes % 0; Promyelocytes % 0; Reactive Lymphocytes 0
[2024-06-15 04:04] LABS: Chloride 105 mmol/L (98-107); Potassium 4.4 mmol/L (3.5-5.1)
[2024-06-15 04:05] LABS: Anion Gap 7 (5-15)
[2024-06-15 04:11] LABS: BUN/Creatinine Ratio 41.6 (10.0-20.0)
[2024-06-15 04:13] LABS: Blood Urea Nitrogen 62 mg/dL (9-23); Carbon Dioxide 35 mmol/L (20-31); Glucose 238 mg/dL (74-106); Sodium 147 mmol/L (136-145)
[2024-06-15 04:24] LABS: Band Neutrophils % (manual) 1; Lymphocytes % (manual) 3 (10.0-50.0); Monocytes % (manual) 5 (0-12)
[2024-06-15 04:25] LABS: Platelet Estimate Decreased
--- NOTE | 2024-06-15 05:25 | DVH ---
EXAM: XR Chest, 1 View CLINICAL INDICATION: Acute resp failure TECHNIQUE: Frontal view of the chest. COMPARISON: XY CHEST XRAY 1 VIEW on DOS: 06/13/24, XY CHEST XRAY 1 VIEW on DOS: 06/13/24, XY CHEST PORT ABLE on DOS: 06/12/24, XY CHEST XRAY 1 VIEW on DOS: 06/11/24, XY CHEST PORTABLE on DOS: 06/11/24 FINDINGS: LUNGS AND PLEURAL SPACES: Bibasilar atelectasis or pneumonia. Pulmonary venous congestion. No pne umothorax. HEART: Unremarkable. No cardiomegaly. MEDIASTINUM: Unremarkable. Normal mediastinal contour. BONES/JOINTS: Unremarkable. No acute fracture. TUBES, LINES AND DEVICES: The endotracheal tube (ETT) is in satisfactory position. Enteric tube ti p in the stomach. Right internal jugular central venous catheter tip in the superior vena cava. OTHER FINDINGS: . None. . .. IMPRESSION: 1. Bibasilar atelectasis or pneumonia. 2. Pulmonary venous congestion.
[2024-06-15 06:27] LABS: Base Excess 3.5 mmol/L (-2.0-3.0)
--- NOTE | 2024-06-15 09:58 | DVHPN2 ---
Subjective Patient chemically sedated Reviewed: Care Plan, H&P, Labs, Medications, Previous Orders, Radiology Changes from previous H/P or p: No Changes Eyes: No Pain, No Vision change, No Conjunctivae inflammation, No Eyelid inflammation, No Other, No Redness ENT: No Ear pain, No Ear discharge, No Nose pain, No Nose discharge, No Nose congestion, No Mouth pain, No Mouth swelling, No Throat pain, No Throat swelling, No Other Cardiovascular: Chest Pain; No Palpitations, No Orthopnea, No Paroxysmal Noc. Dyspnea, No Edema, No Lt Headedness, No Other Respiratory: No Cough, No Dry; Shortness of breath, SOB with excertion; No Wheezing, No Hemoptysis, No Pleuritic Pain, No Sputum; Other (SOB at rest) Gastrointestinal: No Nausea, No Vomiting, No Abdominal Pain, No Diarrhea, No Constipation, No Melena, No Hematochezia, No Other Genitourinary: No Dysuria, No Frequency, No Incontinence, No Hematuria, No Retention, No Other Musculoskeletal: No other, No neck pain, No shoulder pain, No arm pain, No back pain, No hand pain, No leg pain, No foot pain Skin: No Rash, No Lesions, No Jaundice, No Bruising, No Other Objective Vitals Vital Signs Date Time Temp Pulse Resp B/P (MAP) Pulse Ox O2 Delivery O2 Flow Rate FiO2 06/15/24 08:12 149/85 06/15/24 07:40 78 18 95 40 06/15/24 07:00 98.2 208.8 06/15/24 06:00 Mechanical Ventilator+ Intake/Output Intake and Output 06/15/24 07:00 Intake Total 1017.000 ml Output Total 1050 ml Balance -33.000 ml Intake Oral 300 ml IV Total 211.000 ml Tube Feeding 506 ml Output Urine Total 1050 ml Stool Total 0 ml General Appearance: Other (sedated ) HEENT: Mucous membr. moist/pink, Other (Pupils four and nonreactive) Lungs: Clear to auscultation Cardiovascular: Normal S1, Normal S2 Abdomen: Normal bowel sounds, Soft Extremities: No clubbing, No cyanosis, Other (bilateral leg edema ) Skin: Dry, Intact Psych/Mental Status: Other (intubated and seated ) Medications Current Medications Medications Dose Ordered Sig/Mindy Route Start Time Stop Time Status Last Admin Dose Admin Albuterol 2.5 mg Q4HPRN PRN NEB 06/11/24 13:45 06/14/24 06:29 2.5 MG Ipratropium [place] 0.5 mg Q4HPRN PRN NEB 06/11/24 13:45 06/14/24 06:29 0.5 MG Sodium Chloride 10 ml Q8HR IV 06/11/24 14:00 06/15/24 06:28 10 ML Ondansetron HCl 4 mg Q4HP PRN IV 06/11/24 13:45 Docusate Sodium 100 mg BIDPRN PRN PO 06/11/24 13:45 Acetaminophen 650 mg Q6HP PRN PO 06/11/24 13:45 Nitroglycerin 0.4 mg Q5MINP PRN SL 06/11/24 16:00 Morphine Sulfate 2 mg Q30M PRN IV 06/11/24 16:00 Fentanyl Citrate 250 ml @ 2.5 mls/hr Q24H IV 06/11/24 16:15 06/14/24 19:33 5 MLS/HR Atorvastatin Calcium 40 mg HS PO 06/12/24 22:00 06/14/24 21:35 40 MG Enteral Nutritional Formula 1,000 ml 30ML/HR GT 06/12/24 13:30 Diagnostic Test (Pha) 1 strip ACHS 06/12/24 17:00 06/15/24 06:28 1 STRIP Insulin Human Regular ACHS SC 06/12/24 17:00 06/15/24 06:31 4 UNITS Dextrose 50 ml UD PRN IV 06/12/24 13:30 Midazolam HCl 50 ml @ 1 mls/hr Q24H IV 06/13/24 06:45 06/15/24 08:12 1 MLS/HR Propofol 100 ml @ 2.727 mls/ hr Q24H IV 06/13/24 08:15 06/13/24 20:21 8.181 MLS/HR Purified Water 100 ml Q6HR GT 06/13/24 12:00 06/15/24 06:28 100 ML Lorazepam 1 mg Q5MINP PRN IV 06/13/24 10:45 Insulin Glargine 15 units DAILY@1000 SC 06/14/24 10:00 06/14/24 09:53 15 UNITS Aspirin 81 mg DAILY PO 06/14/24 10:00 06/14/24 12:27 81 MG Norepinephrine Bitartrate 250 ml @ 1.875 mls/ hr Q24H IV 06/14/24 15:45 Methylprednisolone Sodium Succinate 40 mg Q12HR IV 06/14/24 22:00 06/14/24 21:35 40 MG Laboratory Results Laboratory Tests 06/15/24 03:15 Chemistry Test 06/15/24 03:15 Calcium Level 9.0 mg/dL (8.7-10.4) Urinalysis Test 06/11/24 11:24 Urine Color Light-yellow (Yellow) Urine Clarity Clear (Clear) Urine pH 6.0 (5.0-9.0) Urine Specific [place] 1.011 (1.001-1.035) Urine Protein Negative (Negative) Urine Ketones Negative (Negative) Urine Blood 1+ /uL (Negative) H Urine Nitrite Negative (Negative) Urine Bilirubin Negative (Negative) Urine Urobilinogen Normal mg/dL (Negative) Urine Leukocyte Esterase Negative /uL (Negative) Urine RBC 1 /hpf (0 - 3) Urine Microscopic WBC < 1 /HPF (0-3) Urine Squamous Epithelial Cells None seen /hpf (<5) Urine Bacteria None seen /hpf (None Seen) Urine Hyaline Casts Few /lpf (0 - 2) Urine Glucose 1+ mg/dL (Normal) H Blood Gas Results Test 06/15/24 06:19 Arterial Blood pH 7.420 (7.350-7.450) FiO2 % 40.0 Microbiology Microbiology Date/Time Source Procedure Growth Status 06/12/24 11:30 Blood Blood Culture - Preliminary NO GROWTH AFTER 48 HOURS OF INCUBATION. Resulted 06/11/24 18:38 Lung Pending Resulted 06/11/24 18:38 Lung Pending Resulted 06/11/24 18:38 Lung Pending Resulted 06/11/24 18:38 Lung Pending Resulted 06/11/24 18:38 Lung - Final See Separate Report... Resulted 06/11/24 18:38 Bronchial Brushings Gram Stain - Final Complete 06/11/24 18:38 Respiratory Culture - Final Staphylococcus aureus Complete Labs and/or images reviewed: Labs reviewed by me, Image(s) reviewed by me Assessment/Plan Assessment/Plan Impression: -acute on chronic hypoxic and hypercarbic respiratory failure -COPD with exacerbation -recent history of Staphylococcus aureus pneumonia -obesity -thrombocytopenia -atrial fibrillation -obesity -acute kidney injury, probable vasomotor nephropathy -acute on chronic systolic and diastolic heart failure Plan: Events: No events overnight. Thrombocytopenia improving. Patient opening eyes but not following commands. Glucose remains to be uncontrolled. -continue current sedation, Ativan for breakthrough seizure activity -continue tube feeding -RISS, Increase Lantus to 25units daily. -change abx to Nafcillin -pulmonology consultation: Recommendations reviewed. -cardiology consultation: Recommendations reviewed -start free water 100 mL every 6 hours -repeat labs, chest x-ray, ABG in a.m. Critical care time spent with patient discussing and formulating plan of care: 40 minutes. This does not include time spent performing procedures. This medical document was created using an electronic medical record system with [employer] dictation system. Although this document has been carefully reviewed, there may still be some phonetic and typographical errors. These areas are purely typographical due to imperfections of the software programs, and do not reflect any compromise in the patient's medical care. Plan discussed with: Patient, Other (RN) My Orders Orders - YOLI KAY NP Procedure Category Date Status Time Norepinephrine 8 PHA 06/14/24 In Process Mg/250ml Kit 15:45 Mrsa Screen ANTHONY 06/14/24 Uncollected 20:46 Mrsa Screen ANTHONY 06/14/24 In Process 06:00 Date of Service: Jun 15, 2024 Billing Provider: YOLI KAY NP Common Visit Codes: 37043-[id number] CARE 30-74 MIN YOLI KAY NP Jun 15, 2024 09:58
[2024-06-15] MEDS ORDERED: NAFCILLIN SOD 2GM 2 GM in SODIUM CHL 0.9% 100 ML IV SCH (10:00)
[2024-06-15] MEDS: INSULIN LANTUS (GLARGINE) 1 /0.01ml (100units/ml) SC SCH (10:08)
[2024-06-15] MEDS: hydrALAZINE HCL 20 MG/ML VL ONE (11:19)
[2024-06-15] MEDS: hydrALAZINE HCL 20 MG/ML VL IV PRN (11:22)
[2024-06-15] MEDS: NAFCILLIN SOD 2GM 2 GM in SODIUM CHL 0.9% 100 ML IV SCH (12:17)
--- NOTE | 2024-06-15 21:27 | DVHPN2 ---
Progress Note - Dictate Date Seen: Jun 15, 2024 Medical Necessity Reason Pt with a Central, PICC or Fol: Yes The following are medically ne: Garcia Catheter Reason for garcia catheter: Strict I&O Subjective Mr. Jeffry Cummins is a 79 years old right-handed gentleman with a history of hypertension, coronary artery disease, heart attack, COPD, he came to the [facility] on 06/11/2024 with a chief company of shortness of breath for 2 hours. The patient was intubated on 06/11/2024 in the emergency room. I saw him on 05/29/2024 for altered mental status He had seizure-like activity in the ER on 06/13/2024 I have seen and examined the patient, I have discussed with his nurse, he is intubated, sedated, but he was awake, he moves the arms but he does not responsive to verbal stimuli or verbal commands Fentanyl 100 mcg/hour. SaO2: 50% Urinalysis, 06/12/2024: WBC: 1, urine leukocyte esterase: Negative ABG, 06/13/2024, pCO2: 66.3, HCO3: 31.5 WBC/HB/PLT/MCV, 05/25/2024: 17.9/14.4/211/93.1, 05/29/2024: 10.8/13.9/190/91.6, 06/03/2024: 21.3/316/178/90.7, 06/12/2024: 0.8/11.8/101/91.2, 06/13/2024: 7.3/12.4/36/91.6 BUN/CR, 05/29/2024: 28/0.78, 06/28/2024, 39/1.29 HGB A1c, 05/23/24: 6.5 TBI/AST/ALT/AP, 06/12/2024: 1.7/40/40/69 TG/HDL/LDL/HDL, 05/23/2024: 118/112/48/49 TSH, 05/23/2024: 0.71 EEG, 06/13/2024: Mildly abnormal Chest X ray, 06/11/2024: ETT tip is at the kar[place]. Retraction by [address] head, 05/20/2024: 1. Global brain atrophy and chronic schema changes without evidence of acute intracranial process. 2. Punctate intra-axial and extra-axial calcifications may be due to remote history of TORCH infection. 3. Mild bilateral maxillary and ethmoid sinus disease. MR head, 06/13/2024: There is no acute intracranial process. vital signs Vital Sign Date Time Temp Pulse Resp B/P (MAP) Pulse Ox O2 Delivery O2 Flow Rate FiO2 06/15/24 21:23 106/61 06/15/24 20:36 86 28 95 50 06/15/24 19:45 98.4 209.1 06/15/24 18:00 Mechanical Ventilator+ Total Intake and Output 06/14/24 06/14/24 06/15/24 15:00 23:00 07:00 Intake Total 87.50 ml 609.500 ml 320 ml Output Total 550 ml 500 ml Balance 87.50 ml 59.500 ml -180 ml medications Current Medications Medications Dose Ordered Sig/Mindy Route Start Time Stop Time Status Last Admin Dose Admin Albuterol 2.5 mg Q4HPRN PRN NEB 06/11/24 13:45 06/14/24 06:29 2.5 MG Ipratropium [place] 0.5 mg Q4HPRN PRN NEB 06/11/24 13:45 06/14/24 06:29 0.5 MG Sodium Chloride 10 ml Q8HR IV 06/11/24 14:00 06/15/24 13:42 10 ML Ondansetron HCl 4 mg Q4HP PRN IV 06/11/24 13:45 Docusate Sodium 100 mg BIDPRN PRN PO 06/11/24 13:45 Acetaminophen 650 mg Q6HP PRN PO 06/11/24 13:45 Nitroglycerin 0.4 mg Q5MINP PRN SL 06/11/24 16:00 Morphine Sulfate 2 mg Q30M PRN IV 06/11/24 16:00 Fentanyl Citrate 250 ml @ 2.5 mls/hr Q24H IV 06/11/24 16:15 06/15/24 21:23 10 MLS/HR Atorvastatin Calcium 40 mg HS PO 06/12/24 22:00 06/14/24 21:35 40 MG Enteral Nutritional Formula 1,000 ml 30ML/HR GT 06/12/24 13:30 Diagnostic Test (Pha) 1 strip ACHS 06/12/24 17:00 06/15/24 17:00 1 STRIP Insulin Human Regular ACHS SC 06/12/24 17:00 06/15/24 17:30 4 UNITS Dextrose 50 ml UD PRN IV 06/12/24 13:30 Midazolam HCl 50 ml @ 1 mls/hr Q24H IV 06/13/24 06:45 06/15/24 08:12 1 MLS/HR Propofol 100 ml @ 2.727 mls/ hr Q24H IV 06/13/24 08:15 06/13/24 20:21 8.181 MLS/HR Purified Water 100 ml Q6HR GT 06/13/24 12:00 06/15/24 18:00 100 ML Lorazepam 1 mg Q5MINP PRN IV 06/13/24 10:45 Aspirin 81 mg DAILY PO 06/14/24 10:00 06/14/24 12:27 81 MG Norepinephrine Bitartrate 250 ml @ 1.875 mls/ hr Q24H IV 06/14/24 15:45 Methylprednisolone Sodium Succinate 40 mg Q12HR IV 06/14/24 22:00 06/15/24 10:00 40 MG Insulin Glargine 25 units DAILY@1000 SC 06/15/24 10:00 06/15/24 10:08 25 UNITS Hydralazine HCl 10 mg Q4HP PRN IV 06/15/24 11:15 06/15/24 11:22 10 MG Nafcillin Sodium 2 gm/Sodium Chloride 100 ml @ 100 mls/hr Q4H IV 06/15/24 12:00 06/15/24 21:12 100 MLS/HR Dexmedetomidine HCl 400 mcg/ Dextrose 100 ml @ 4.545 mls/ hr Q22H1M IV 06/15/24 12:45 06/15/24 12:58 4.545 MLS/HR objective The patient is well-nourished and well-developed with no distress. The patient is intubated MENTAL STATUS: Subjective CRANIAL NERVES: Pupils are equal, round and reactive.There are corneal reflexes and doll's eyes phenomenon. No signs of facial weakness. There are weak gagging or coughing reflexes SENSATION: Responses to pain stimuli. MOTOR: Normal tone in the upper and lower extremity. Normal muscle bulk. No fasciculations. No spontaneous movement. REFLEXES: Deep tendon reflexes are symmetrical. No pathological reflexes. CEREBELLAR/COORDINATION: Deferred GAIT/STATION: deferred. laboratory and microbiology Laboratory Tests 06/15/24 03:15 Test 06/15/24 03:15 Range/Units Serum Glucose 238 H 74-106 mg/dL Problem List Altered mental status/Coma Hypoxic encephalopathy Metabolic encephalopathy Toxic encephalopathy ? Status epileptics New onset seizure activity ? Acute symptomatic seizure ? 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 Although this document has been carefully reviewed, there may still be some phonetic and typographical errors. These areas are purely typographical due to imperfections of the software programs, and do not reflect any compromise in the patient's medical carecercosis Acute on chronic respiratory failure Pneumonia Prognosis guarded Dietary Evaluation Review Comments: 1. Pt's current feeding Glucerna 30ml/hr (43g pro, 864 kcal) x 24 hr will support 79% Pro and 87% kcal, if kidney failure is considered. 2. Pt's protein requirement is 134g if his kidney function improves while still on vent. 3. CCHO-60 diet if no renal failure when Pt is off vent and passing speech eval. 4. CCHO-60 with renal specific 50 gprotein restriction when pt is off vent passing speech eval and has KD. 5. CCHO-60 Renal Standard if pt is off vent with renal failure and on dialysis and pass speech eval. Expected Outcomes/Goals: controlled glucose level, minimized nephrotic syndrome. gradual wt loss. Plan discussed with: Other Critical Care Time(min): 30 CALEB NORMAN MD Jun 15, 2024 21:27
--- NOTE | 2024-06-15 23:16 | DVHPN2 ---
Progress Note - Dictate Date Seen: Jun 15, 2024 Medical Necessity Reason Pt with a Central, PICC or Fol: Yes The following are medically ne: Garcia Catheter Reason for garcia catheter: Strict I&O Subjective Patient seen and examined at bedside. Sedated, intubated on mechanical ventilator. Overnight events reviewed. vital signs Vital Sign Date Time Temp Pulse Resp B/P (MAP) Pulse Ox O2 Delivery O2 Flow Rate FiO2 06/15/24 22:33 69 18 94/61 (72) 97 40 06/15/24 19:45 98.4 209.1 06/15/24 18:00 Mechanical Ventilator+ Total Intake and Output 06/14/24 06/14/24 06/15/24 15:00 23:00 07:00 Intake Total 87.50 ml 609.500 ml 320 ml Output Total 550 ml 500 ml Balance 87.50 ml 59.500 ml -180 ml medications Current Medications Medications Dose Ordered Sig/Mindy Route Start Time Stop Time Status Last Admin Dose Admin Albuterol 2.5 mg Q4HPRN PRN NEB 06/11/24 13:45 06/14/24 06:29 2.5 MG Ipratropium [place] 0.5 mg Q4HPRN PRN NEB 06/11/24 13:45 06/14/24 06:29 0.5 MG Sodium Chloride 10 ml Q8HR IV 06/11/24 14:00 06/15/24 13:42 10 ML Ondansetron HCl 4 mg Q4HP PRN IV 06/11/24 13:45 Docusate Sodium 100 mg BIDPRN PRN PO 06/11/24 13:45 Acetaminophen 650 mg Q6HP PRN PO 06/11/24 13:45 Nitroglycerin 0.4 mg Q5MINP PRN SL 06/11/24 16:00 Morphine Sulfate 2 mg Q30M PRN IV 06/11/24 16:00 Fentanyl Citrate 250 ml @ 2.5 mls/hr Q24H IV 06/11/24 16:15 06/15/24 21:23 10 MLS/HR Atorvastatin Calcium 40 mg HS PO 06/12/24 22:00 06/15/24 22:16 40 MG Enteral Nutritional Formula 1,000 ml 30ML/HR GT 06/12/24 13:30 Diagnostic Test (Pha) 1 strip ACHS 06/12/24 17:00 2/7/25 22:17 1 STRIP Insulin Human Regular ACHS SC 06/12/24 17:00 06/15/24 22:18 3 UNITS Dextrose 50 ml UD PRN IV 06/12/24 13:30 Midazolam HCl 50 ml @ 1 mls/hr Q24H IV 06/13/24 06:45 06/15/24 08:12 1 MLS/HR Propofol 100 ml @ 2.727 mls/ hr Q24H IV 06/13/24 08:15 06/13/24 20:21 8.181 MLS/HR Purified Water 100 ml Q6HR GT 06/13/24 12:00 06/15/24 18:00 100 ML Lorazepam 1 mg Q5MINP PRN IV 06/13/24 10:45 Aspirin 81 mg DAILY PO 06/14/24 10:00 06/14/24 12:27 81 MG Norepinephrine Bitartrate 250 ml @ 1.875 mls/ hr Q24H IV 06/14/24 15:45 Methylprednisolone Sodium Succinate 40 mg Q12HR IV 06/14/24 22:00 06/15/24 22:16 40 MG Insulin Glargine 25 units DAILY@1000 SC 06/15/24 10:00 06/15/24 10:08 25 UNITS Hydralazine HCl 10 mg Q4HP PRN IV 06/15/24 11:15 06/15/24 11:22 10 MG Nafcillin Sodium 2 gm/Sodium Chloride 100 ml @ 100 mls/hr Q4H IV 06/15/24 12:00 06/15/24 21:12 100 MLS/HR Dexmedetomidine HCl 400 mcg/ Dextrose 100 ml @ 4.545 mls/ hr Q22H1M IV 06/15/24 12:45 06/15/24 12:58 4.545 MLS/HR objective Gen.: Patient lying in bed in medical ICU. Sedated, intubated on mechanical ventilator Head: Normocephalic, atraumatic. Eyes: PERRLA. Ears: Normal external anatomy. Throat: Endotracheal tube and orogastric tube in place. Neck: Supple, trachea midline. Chest: Transmitted breath sounds bilaterally. Decreased air entry bilaterally. No wheezing. Bibasilar crackles. Cardiovascular: Positive S1, positive S2. Regular rate and rhythm. Abdomen: Positive bowel sounds in all 4 quadrants. Soft, nontender, nondistended. : Garcia in place. Normal external genitalia. Rectal: Deferred. Skin: Warm, dry. Intact. Extremities: 2+ radial pulses bilaterally. No lower extremity edema. Neuro: Sedated laboratory and microbiology Laboratory Tests 06/15/24 03:15 Test 06/15/24 03:15 Range/Units Serum Glucose 238 H 74-106 mg/dL Assessment/Plan Impression: Acute on chronic hypoxic respiratory failure On mechanical ventilator Acute exacerbation of COPD Morbid obesity Shock, hypovolemic versus sepsis Hemoptysis Elevated troponin Pulmonary vascular congestion Events: Remains on vent support Vent settings; respiratory rate of 18, tidal volume 400, PEEP of 5, FiO2 at 40 -->50%. Patient had seizure on 06/13/24 Remains on Versed for sedation Fentanyl for analgesia Taper Versed as tolerated Obtain EEG. ABG reviewed, compensated On Levophed 2 mcg/min for hemodynamic support. Titrate to keep MAP above 65 mmHg/SBP above 90 mmHg.. Continue bronchodilators PRN Continue steroids - Solu-Medrol q.12 hours Continue antibiotics Accu-Cheks q.6 hours Lovenox on hold d/t low platelet count Tube feeds for nutritional support Free water supplementation Monitor renal function Monitor electrolytes. Supplement as necessary. Monitor ins and outs SBT/KALYN CPAP in AM. Labs and imaging reviewed. Rest of plan as noted below. Plan: s/p intubation on mechanical ventilator Vent settings; respiratory rate of 18, tidal volume 400, PEEP of 5, FiO2 at 50%. Titrate FIO2 to keep O2 saturation above 92%. VAP bundle Daily ABG and CXR while intubated. Sedated Pressors for hemodynamic support. Titrate to keep MAP above 65 mmHg/SBP above 90 mmHg. Elevated troponin Cardiology recommendations appreciated Continue bronchodilators. Continue steroids F/u cultures. Monitor renal function due to Acute kidney injury. Monitor electrolytes. Supplement as necessary. Monitor ins and outs Nutritional support. Tube feeds Accu-Cheks, ISS GI/DVT prophylaxis. Condition: Critical Prognosis: Poor given multiple comorbidities. Rest of plan per hospitalist and other consultants. A total of 35 minutes of critical care time was spent reviewing the patient record, examining the patient, making a diagnostic and therapeutic plan, discussing this plan with the medical personnel, following up on diagnostic studies and following the patient for clinical stability excluding any and all procedures. At least 50% of this time was spent in direct, [id number] contact. Thank you RAFA Blackwell for allowing me to participate in this patient's care. Further recommendations will depend on patient's clinical course. Please do not hesitate to contact me if you have any questions or concerns. This medical document was created using an electronic medical record system with [employer] dictation system. Although this document has been carefully reviewed, there may still be some phonetic and typographical errors. These areas are purely typographical due to imperfections of the software programs, and do not reflect any compromise in the patient's medical care. Dietary Evaluation Review Comments: 1. Pt's current feeding Glucerna 30ml/hr (43g pro, 864 kcal) x 24 hr will support 79% Pro and 87% kcal, if kidney failure is considered. 2. Pt's protein requirement is 134g if his kidney function improves while still on vent. 3. CCHO-60 diet if no renal failure when Pt is off vent and passing speech eval. 4. CCHO-60 with renal specific 50 gprotein restriction when pt is off vent passing speech eval and has KD. 5. CCHO-60 Renal Standard if pt is off vent with renal failure and on dialysis and pass speech eval. Expected Outcomes/Goals: controlled glucose level, minimized nephrotic syndrome. gradual wt loss. Plan discussed with: Other (MALICK Carlos) Critical Care Time(min): 35 RYAN ROMERO MD Jun 15, 2024 23:16
[2024-06-16] VITALS (105 sets, daily range): BP systolic 75–146; BP diastolic 37–95; PULSE 65–112; RESP 11–36; TEMP 98.6–99.7; O2SAT 88–100
[2024-06-16 04:24] LABS: Anion Gap 7 (5-15); Potassium 4.3 mmol/L (3.5-5.1)
[2024-06-16 04:25] LABS: Calcium 9.2 mg/dL (8.7-10.4)
[2024-06-16 04:30] LABS: BUN/Creatinine Ratio 41.1 (10.0-20.0)
[2024-06-16 04:36] LABS: Blood Urea Nitrogen 60 mg/dL (9-23); Carbon Dioxide 37 mmol/L (20-31); Chloride 108 mmol/L (98-107); Glucose 165 mg/dL (74-106); Sodium 152 mmol/L (136-145)
[2024-06-16 04:56] LABS: Basophils # (auto) 0 10 ^3/uL (0-0.2); Basophils % (auto) 0.1 % (0.0-2.0); Eosinophils # (auto) 0 10 ^3/uL (0-0.8); Eosinophils % (auto) 0.1 % (0.0-7.0); Hematocrit 40.7 % (41.0-53.0); Hemoglobin 13.7 g/dL (13.5-17.5); Lymphocytes # (auto) 0.2 10 ^3/uL (0.4-5.4); Lymphocytes % (auto) 2.1 % (10.0-50.0); Mean Corpuscular Hemoglobin 31.4 pg (28.0-32.0); Mean Corpuscular Hgb Conc. 33.8 g/dL (32.0-36.0); Mean Corpuscular Volume 92.9 fL (80.0-100.0); Monocytes # (auto) 0.4 10 ^3/uL (0-1.3); Monocytes % (auto) 3.6 % (0.0-12.0); Neutrophils # (auto) 10.9 10 ^3/uL (1.6-8.6); Neutrophils % (auto) 94.1 % (37.0-80.0); Nucleated Red Blood Cells % 0.1 %; Platelet Count (auto) 72 10^3/uL (140-450); Red Blood Cells 4.38 10^6/uL (4.5-5.90); Red Cell Distribution Width 14.7 % (11.8-14.3); White Blood Cell 11.6 10^3/uL (4.4-10.8)
[2024-06-16] MEDS: GLYCOPYRROLATE 0.2 MG/ML 1ML VIAL IV ONE (10:17)
[2024-06-16] MEDS: FUROSEMIDE 20 MG/2 ML VIAL IV ONE (11:40)
--- NOTE | 2024-06-16 12:56 | DVHPN2 ---
Subjective Intubated, and sedated Reviewed: Care Plan, H&P, Labs, Medications, Previous Orders, Radiology, Other (Consultations) Changes from previous H/P or p: No Changes Objective Vitals Vital Signs Date Time Temp Pulse Resp B/P (MAP) Pulse Ox O2 Delivery O2 Flow Rate FiO2 06/16/24 12:30 111 34 122/78 (93) 98 40 06/16/24 08:00 Mechanical Ventilator+ 06/16/24 06:30 98.6 209.5 Intake/Output Intake and Output 06/16/24 07:00 Intake Total 913.248 ml Output Total 1025 ml Balance -111.752 ml Intake Oral 60 ml IV Total 608.248 ml Tube Feeding 245 ml Output Urine Total 1025 ml Stool Total 0 ml General Appearance: Other (Intubated, and sedated) HEENT: Mucous membr. moist/pink, Other (Pupils four and nonreactive) Lungs: Other (MV sounds) Cardiovascular: Normal S1, Normal S2, Other (Tachycardia) Abdomen: Soft Genitourinary: Other (Aguero's) Neuro: Other (Sedated) Psych/Mental Status: Other (Sedated) Medications Current Medications Medications Dose Ordered Sig/Mindy Route Start Time Stop Time Status Last Admin Dose Admin Albuterol 2.5 mg Q4HPRN PRN NEB 06/11/24 13:45 06/14/24 06:29 2.5 MG Ipratropium [place] 0.5 mg Q4HPRN PRN NEB 06/11/24 13:45 06/14/24 06:29 0.5 MG Sodium Chloride 10 ml Q8HR IV 06/11/24 14:00 06/16/24 05:57 10 ML Ondansetron HCl 4 mg Q4HP PRN IV 06/11/24 13:45 Docusate Sodium 100 mg BIDPRN PRN PO 06/11/24 13:45 Acetaminophen 650 mg Q6HP PRN PO 06/11/24 13:45 Nitroglycerin 0.4 mg Q5MINP PRN SL 06/11/24 16:00 Morphine Sulfate 2 mg Q30M PRN IV 06/11/24 16:00 Fentanyl Citrate 250 ml @ 2.5 mls/hr Q24H IV 06/11/24 16:15 06/15/24 21:23 10 MLS/HR Atorvastatin Calcium 40 mg HS PO 06/12/24 22:00 06/15/24 22:16 40 MG Enteral Nutritional Formula 1,000 ml 30ML/HR GT 06/12/24 13:30 Diagnostic Test (Pha) 1 strip ACHS 06/12/24 17:00 06/16/24 11:30 1 STRIP Insulin Human Regular ACHS SC 06/12/24 17:00 06/15/24 22:18 3 UNITS Dextrose 50 ml UD PRN IV 06/12/24 13:30 Midazolam HCl 50 ml @ 1 mls/hr Q24H IV 06/13/24 06:45 06/15/24 08:12 1 MLS/HR Propofol 100 ml @ 2.727 mls/ hr Q24H IV 06/13/24 08:15 06/13/24 20:21 8.181 MLS/HR Purified Water 100 ml Q6HR GT 06/13/24 12:00 06/16/24 12:00 100 ML Lorazepam 1 mg Q5MINP PRN IV 06/13/24 10:45 Aspirin 81 mg DAILY PO 06/14/24 10:00 06/16/24 11:39 81 MG Norepinephrine Bitartrate 250 ml @ 1.875 mls/ hr Q24H IV 06/14/24 15:45 Methylprednisolone Sodium Succinate 40 mg Q12HR IV 06/14/24 22:00 06/16/24 10:13 40 MG Insulin Glargine 25 units DAILY@1000 SC 06/15/24 10:00 06/16/24 10:20 25 UNITS Hydralazine HCl 10 mg Q4HP PRN IV 06/15/24 11:15 06/15/24 11:22 10 MG Nafcillin Sodium 2 gm/Sodium Chloride 100 ml @ 100 mls/hr Q4H IV 06/15/24 12:00 06/16/24 12:18 100 MLS/HR Dexmedetomidine HCl 400 mcg/ Dextrose 100 ml @ 1.136 mls/ hr Q24H IV 06/16/24 12:15 06/16/24 12:28 1.136 MLS/HR Laboratory Results Laboratory Tests 06/16/24 03:33 Chemistry Test 06/16/24 03:33 Calcium Level 9.2 mg/dL (8.7-10.4) Urinalysis Test 06/11/24 11:24 Urine Color Light-yellow (Yellow) Urine Clarity Clear (Clear) Urine pH 6.0 (5.0-9.0) Urine Specific [place] 1.011 (1.001-1.035) Urine Protein Negative (Negative) Urine Ketones Negative (Negative) Urine Blood 1+ /uL (Negative) H Urine Nitrite Negative (Negative) Urine Bilirubin Negative (Negative) Urine Urobilinogen Normal mg/dL (Negative) Urine Leukocyte Esterase Negative /uL (Negative) Urine RBC 1 /hpf (0 - 3) Urine Microscopic WBC < 1 /HPF (0-3) Urine Squamous Epithelial Cells None seen /hpf (<5) Urine Bacteria None seen /hpf (None Seen) Urine Hyaline Casts Few /lpf (0 - 2) Urine Glucose 1+ mg/dL (Normal) H Blood Gas Results Test 06/16/24 07:22 Arterial Blood pH 7.456 (7.350-7.450) FiO2 % 40.0 Microbiology Microbiology Date/Time Source Procedure Growth Status 06/14/24 06:00 Nose MRSA Screen - Final Complete 06/12/24 11:30 Blood Blood Culture - Preliminary NO GROWTH AFTER 72 HOURS OF INCUBATION. Resulted 06/11/24 18:38 Bronchial Brushings Gram Stain - Final Complete 06/11/24 18:38 Respiratory Culture - Final Staphylococcus aureus Complete Labs and/or images reviewed: Labs reviewed by me, Image(s) reviewed by me Assessment/Plan Assessment/Plan Covering Carson Rico NP: #Acute hypoxic/metabolic/toxic encephalopathy in the setting of septic shock #Acute hypoxic respiratory failure due to MSSA pneumonia #Septic shock with leukocytosis due to MSSA pneumonia #Elevated LFTs secondary to ischemic liver #DICK with hypernatremia due to VMN in the setting of shock Pulmonology, and neurology are following Continue broad-spectrum IV antibiotics Continue oxygen therapy via MV as indicated To restart IV vasopressors as needed Monitor electrolytes closely and replace/correct as needed Avoid nephrotoxic agents Increased free water to correct hypernatremia Reviewed available cultures, labs, ABGs, and imaging studies including CXRs, and brain MRI Continue close monitoring Goals of care discussed with the patient's daughter for 20 minutes; full code. 120 minutes of critical care time. Late Entry. This medical document was created using an electronic medical record system with computerized dictation system. Although this document has been carefully reviewed, there might still be some phonetic and typographical errors. These areas are purely typographical due to imperfections of the software programs, and do not reflect any compromise in the patient's medical care. Plan discussed with: Daughter, Other (Nurse) My Orders Orders - ADONAY GOOD MD Procedure Category Date Status Time D5w 5% (Dextrose 5%) PHA 06/16/24 In Process W/Dexmedetomidine 12:15 Date of Service: Jun 16, 2024 Billing Provider: ADONAY GOOD MD Common Visit Codes: 56144-[id number] CARE 30-74 MIN (120 minutes), [id number] CARE-EACH +30MIN Secondary Visit Codes: [id number] CARE PLAN 30 MINUTES (20 minutes) ADONAY GOOD MD Jun 16, 2024 12:56
[2024-06-16] MEDS: FREE WATER GT SCH (14:00)
--- NOTE | 2024-06-16 22:36 | DVHPN2 ---
Progress Note - Dictate Date Seen: Jun 16, 2024 Medical Necessity Reason Pt with a Central, PICC or Fol: Yes The following are medically ne: Garcia Catheter Reason for garcia catheter: Strict I&O Subjective Patient seen and examined at bedside. intubated on mechanical ventilator. Overnight events reviewed. vital signs Vital Sign Date Time Temp Pulse Resp B/P (MAP) Pulse Ox O2 Delivery O2 Flow Rate FiO2 06/16/24 21:40 81 18 106/65 (79) 99 40 06/16/24 21:30 99.1 210.4 06/16/24 20:00 Mechanical Ventilator+ Total Intake and Output 06/15/24 06/15/24 06/16/24 15:00 23:00 07:00 Intake Total 131.363 ml 381.885 ml 406.250 ml Output Total 525 ml 500 ml Balance 131.363 ml -143.115 ml -93.750 ml medications Current Medications Medications Dose Ordered Sig/Mindy Route Start Time Stop Time Status Last Admin Dose Admin Albuterol 2.5 mg Q4HPRN PRN NEB 06/11/24 13:45 06/14/24 06:29 2.5 MG Ipratropium [place] 0.5 mg Q4HPRN PRN NEB 06/11/24 13:45 06/14/24 06:29 0.5 MG Sodium Chloride 10 ml Q8HR IV 06/11/24 14:00 06/16/24 22:03 10 ML Ondansetron HCl 4 mg Q4HP PRN IV 06/11/24 13:45 Docusate Sodium 100 mg BIDPRN PRN PO 06/11/24 13:45 Acetaminophen 650 mg Q6HP PRN PO 06/11/24 13:45 Nitroglycerin 0.4 mg Q5MINP PRN SL 06/11/24 16:00 Morphine Sulfate 2 mg Q30M PRN IV 06/11/24 16:00 Fentanyl Citrate 250 ml @ 2.5 mls/hr Q24H IV 06/11/24 16:15 06/15/24 21:23 10 MLS/HR Atorvastatin Calcium 40 mg HS PO 06/12/24 22:00 06/16/24 22:05 40 MG Enteral Nutritional Formula 1,000 ml 30ML/HR GT 06/12/24 13:30 Diagnostic Test (Pha) 1 strip ACHS 06/12/24 17:00 06/16/24 22:03 1 STRIP Insulin Human Regular ACHS SC 06/12/24 17:00 06/15/24 22:18 3 UNITS Dextrose 50 ml UD PRN IV 06/12/24 13:30 Midazolam HCl 50 ml @ 1 mls/hr Q24H IV 06/13/24 06:45 06/15/24 08:12 1 MLS/HR Propofol 100 ml @ 2.727 mls/ hr Q24H IV 06/13/24 08:15 06/13/24 20:21 8.181 MLS/HR Lorazepam 1 mg Q5MINP PRN IV 06/13/24 10:45 Aspirin 81 mg DAILY PO 06/14/24 10:00 06/16/24 11:39 81 MG Norepinephrine Bitartrate 250 ml @ 1.875 mls/ hr Q24H IV 06/14/24 15:45 Methylprednisolone Sodium Succinate 40 mg Q12HR IV 06/14/24 22:00 06/16/24 22:02 40 MG Insulin Glargine 25 units DAILY@1000 SC 06/15/24 10:00 06/16/24 10:20 25 UNITS Hydralazine HCl 10 mg Q4HP PRN IV 06/15/24 11:15 06/15/24 11:22 10 MG Nafcillin Sodium 2 gm/Sodium Chloride 100 ml @ 100 mls/hr Q4H IV 06/15/24 12:00 06/16/24 20:41 100 MLS/HR Dexmedetomidine HCl 400 mcg/ Dextrose 100 ml @ 1.136 mls/ hr Q24H IV 06/16/24 12:15 06/16/24 12:28 1.136 MLS/HR Purified Water 100 ml Q4HR GT 06/16/24 14:00 06/16/24 22:03 100 ML objective Gen.: Patient lying in bed in medical ICU. Intubated on mechanical ventilator Head: Normocephalic, atraumatic. Eyes: PERRLA. Ears: Normal external anatomy. Throat: Endotracheal tube and orogastric tube in place. Neck: Supple, trachea midline. Chest: Transmitted breath sounds bilaterally. Decreased air entry bilaterally. No wheezing. Bibasilar crackles. Cardiovascular: Positive S1, positive S2. Regular rate and rhythm. Abdomen: Positive bowel sounds in all 4 quadrants. Soft, nontender, nondistended. : Garcia in place. Normal external genitalia. Rectal: Deferred. Skin: Warm, dry. Intact. Extremities: 2+ radial pulses bilaterally. No lower extremity edema. Neuro: Off sedation laboratory and microbiology Laboratory Tests 06/16/24 03:33 Test 06/16/24 03:33 Range/Units Serum Glucose 165 H 74-106 mg/dL Assessment/Plan Impression: Acute on chronic hypoxic respiratory failure On mechanical ventilator Acute exacerbation of COPD Morbid obesity Shock, hypovolemic versus sepsis Hemoptysis Elevated troponin Pulmonary vascular congestion Events: Remains on vent support Vent settings; respiratory rate of 18, tidal volume 400, PEEP of 5, FiO2 at 40%. Patient had seizure on 06/13/24 Off Versed Off Fentanyl On Precedex Lasix 20 mg IVP x1 given [place]ul 0.2 mg x1. Obtain EEG. ABG reviewed, alkalemia On Levophed for hemodynamic support. Titrate to keep MAP above 65 mmHg/SBP above 90 mmHg.. Continue bronchodilators PRN Continue steroids - Solu-Medrol q.12 hours Continue antibiotics Accu-Cheks q.6 hours Lovenox on hold d/t low platelet count Tube feeds for nutritional support Free water supplementation Monitor renal function Monitor electrolytes. Supplement as necessary. Monitor ins and outs SBT/KALYN CPAP in AM. Labs and imaging reviewed. Rest of plan as noted below. Plan: s/p intubation on mechanical ventilator Vent settings; respiratory rate of 18, tidal volume 400, PEEP of 5, FiO2 at 40%. Titrate FIO2 to keep O2 saturation above 92%. VAP bundle Daily ABG and CXR while intubated. Off sedation Pressors for hemodynamic support. Titrate to keep MAP above 65 mmHg/SBP above 90 mmHg. Elevated troponin Cardiology recommendations appreciated Continue bronchodilators. Continue steroids F/u cultures. Monitor renal function due to Acute kidney injury. Monitor electrolytes. Supplement as necessary. Monitor ins and outs Nutritional support. Tube feeds Accu-Cheks, ISS GI/DVT prophylaxis. Condition: Critical Prognosis: Poor given multiple comorbidities. Rest of plan per hospitalist and other consultants. A total of 35 minutes of critical care time was spent reviewing the patient record, examining the patient, making a diagnostic and therapeutic plan, discussing this plan with the medical personnel, following up on diagnostic studies and following the patient for clinical stability excluding any and all procedures. At least 50% of this time was spent in direct, [id number] contact. Thank you RAFA Blackwell for allowing me to participate in this patient's care. Further recommendations will depend on patient's clinical course. Please do not hesitate to contact me if you have any questions or concerns. This medical document was created using an electronic medical record system with [employer] dictation system. Although this document has been carefully reviewed, there may still be some phonetic and typographical errors. These areas are purely typographical due to imperfections of the software programs, and do not reflect any compromise in the patient's medical care. Dietary Evaluation Review Comments: 1. Pt's current feeding Glucerna 30ml/hr (43g pro, 864 kcal) x 24 hr will support 79% Pro and 87% kcal, if kidney failure is considered. 2. Pt's protein requirement is 134g if his kidney function improves while still on vent. 3. CCHO-60 diet if no renal failure when Pt is off vent and passing speech eval. 4. CCHO-60 with renal specific 50 gprotein restriction when pt is off vent passing speech eval and has KD. 5. CCHO-60 Renal Standard if pt is off vent with renal failure and on dialysis and pass speech eval. Expected Outcomes/Goals: controlled glucose level, minimized nephrotic syndrome. gradual wt loss. Plan discussed with: Other (MALICK Sage) Critical Care Time(min): 35 RYAN ROMERO MD Jun 16, 2024 22:36
--- NOTE | 2024-06-16 22:46 | DVHPN2 ---
Progress Note - Dictate Date Seen: Jun 16, 2024 Medical Necessity Reason Pt with a Central, PICC or Fol: Yes The following are medically ne: Garcia Catheter Reason for garcia catheter: Strict I&O Subjective Mr. Jeffry Cummins is a 79 years old right-handed gentleman with a history of hypertension, coronary artery disease, heart attack, COPD, he came to the [facility] on 06/11/2024 with a chief company of shortness of breath for 2 hours. The patient was intubated on 06/11/2024 in the emergency room. I saw him on 05/29/2024 for altered mental status He had seizure-like activity in the ER on 06/13/2024 I have seen and examined the patient, I have discussed with his nurse, he is intubated, sedated, eyes open, two point restraint, he moves the head and both arms, but he is nonresponsive to verbal stimuli, visual thread Levo 4 mcminutes, Precedex 0.05 units Urinalysis, 06/12/2024: WBC: 1, urine leukocyte esterase: Negative ABG, 06/13/2024, pCO2: 66.3, HCO3: 31.5 WBC/HB/PLT/MCV, 05/25/2024: 17.9/14.4/211/93.1, 05/29/2024: 10.8/13.9/190/91.6, 06/03/2024: 21.3/316/178/90.7, 06/12/2024: 0.8/11.8/101/91.2, 06/13/2024: 7.3/12.4/36/91.6 BUN/CR, 05/29/2024: 28/0.78, 06/28/2024, 39/1.29 HGB A1c, 05/23/24: 6.5 TBI/AST/ALT/AP, 06/12/2024: 1.7/40/40/69 TG/HDL/LDL/HDL, 05/23/2024: 118/112/48/49 TSH, 05/23/2024: 0.71 EEG, 06/13/2024: Mildly abnormal Chest X ray, 06/11/2024: ETT tip is at the karoline. Retraction by [address] head, 05/20/2024: 1. Global brain atrophy and chronic schema changes without evidence of acute intracranial process. 2. Punctate intra-axial and extra-axial calcifications may be due to remote history of TORCH infection. 3. Mild bilateral maxillary and ethmoid sinus disease. MR head, 06/13/2024: There is no acute intracranial process. vital signs Vital Sign Date Time Temp Pulse Resp B/P (MAP) Pulse Ox O2 Delivery O2 Flow Rate FiO2 06/16/24 21:40 81 18 106/65 (79) 99 40 06/16/24 21:30 99.1 210.4 06/16/24 20:00 Mechanical Ventilator+ Total Intake and Output 06/15/24 06/15/24 06/16/24 15:00 23:00 07:00 Intake Total 131.363 ml 381.885 ml 406.250 ml Output Total 525 ml 500 ml Balance 131.363 ml -143.115 ml -93.750 ml medications Current Medications Medications Dose Ordered Sig/Mindy Route Start Time Stop Time Status Last Admin Dose Admin Albuterol 2.5 mg Q4HPRN PRN NEB 06/11/24 13:45 06/14/24 06:29 2.5 MG Ipratropium [place] 0.5 mg Q4HPRN PRN NEB 06/11/24 13:45 06/14/24 06:29 0.5 MG Sodium Chloride 10 ml Q8HR IV 06/11/24 14:00 06/16/24 22:03 10 ML Ondansetron HCl 4 mg Q4HP PRN IV 06/11/24 13:45 Docusate Sodium 100 mg BIDPRN PRN PO 06/11/24 13:45 Acetaminophen 650 mg Q6HP PRN PO 06/11/24 13:45 Nitroglycerin 0.4 mg Q5MINP PRN SL 06/11/24 16:00 Morphine Sulfate 2 mg Q30M PRN IV 06/11/24 16:00 Fentanyl Citrate 250 ml @ 2.5 mls/hr Q24H IV 06/11/24 16:15 06/15/24 21:23 10 MLS/HR Atorvastatin Calcium 40 mg HS PO 06/12/24 22:00 06/16/24 22:05 40 MG Enteral Nutritional Formula 1,000 ml 30ML/HR GT 06/12/24 13:30 Diagnostic Test (Pha) 1 strip ACHS 06/12/24 17:00 06/16/24 22:03 1 STRIP Insulin Human Regular ACHS SC 06/12/24 17:00 06/15/24 22:18 3 UNITS Dextrose 50 ml UD PRN IV 06/12/24 13:30 Midazolam HCl 50 ml @ 1 mls/hr Q24H IV 06/13/24 06:45 06/15/24 08:12 1 MLS/HR Propofol 100 ml @ 2.727 mls/ hr Q24H IV 06/13/24 08:15 06/13/24 20:21 8.181 MLS/HR Lorazepam 1 mg Q5MINP PRN IV 06/13/24 10:45 Aspirin 81 mg DAILY PO 06/14/24 10:00 06/16/24 11:39 81 MG Norepinephrine Bitartrate 250 ml @ 1.875 mls/ hr Q24H IV 06/14/24 15:45 Methylprednisolone Sodium Succinate 40 mg Q12HR IV 06/14/24 22:00 06/16/24 22:02 40 MG Insulin Glargine 25 units DAILY@1000 SC 06/15/24 10:00 06/16/24 10:20 25 UNITS Hydralazine HCl 10 mg Q4HP PRN IV 06/15/24 11:15 06/15/24 11:22 10 MG Nafcillin Sodium 2 gm/Sodium Chloride 100 ml @ 100 mls/hr Q4H IV 06/15/24 12:00 06/16/24 20:41 100 MLS/HR Dexmedetomidine HCl 400 mcg/ Dextrose 100 ml @ 1.136 mls/ hr Q24H IV 06/16/24 12:15 06/16/24 12:28 1.136 MLS/HR Purified Water 100 ml Q4HR GT 06/16/24 14:00 06/16/24 22:03 100 ML objective The patient is well-nourished and well-developed with no distress. The patient is intubated MENTAL STATUS: Subjective CRANIAL NERVES: Pupils are equal, round and reactive.There are corneal reflexes and doll's eyes phenomenon. No signs of facial weakness. There are weak gagging or coughing reflexes SENSATION: Responses to pain stimuli. MOTOR: Normal tone in the upper and lower extremity. Normal muscle bulk. No fasciculations. He moves the arms REFLEXES: Deep tendon reflexes are symmetrical. No pathological reflexes. CEREBELLAR/COORDINATION: Deferred GAIT/STATION: deferred. laboratory and microbiology Laboratory Tests 06/16/24 03:33 Test 06/16/24 03:33 Range/Units Serum Glucose 165 H 74-106 mg/dL Problem List Altered mental status/Coma Hypoxic encephalopathy Metabolic encephalopathy Toxic encephalopathy ? Status epileptics ? Vegetative status New onset seizure activity ? Acute symptomatic seizure ? 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 Although this document has been carefully reviewed, there may still be some phonetic and typographical errors. These areas are purely typographical due to imperfections of the software programs, and do not reflect any compromise in the patient's medical carecercosis Acute on chronic respiratory failure Pneumonia Prognosis guarded Dietary Evaluation Review Comments: 1. Pt's current feeding Glucerna 30ml/hr (43g pro, 864 kcal) x 24 hr will support 79% Pro and 87% kcal, if kidney failure is considered. 2. Pt's protein requirement is 134g if his kidney function improves while still on vent. 3. CCHO-60 diet if no renal failure when Pt is off vent and passing speech eval. 4. CCHO-60 with renal specific 50 gprotein restriction when pt is off vent passing speech eval and has KD. 5. CCHO-60 Renal Standard if pt is off vent with renal failure and on dialysis and pass speech eval. Expected Outcomes/Goals: controlled glucose level, minimized nephrotic syndrome. gradual wt loss. Plan discussed with: Other Critical Care Time(min): 35 CALEB NORMAN MD Jun 16, 2024 22:46
[2024-06-17] VITALS (108 sets, daily range): BP systolic 67–140; BP diastolic 36–86; PULSE 52–114; RESP 9–33; TEMP 98.4–100.2; O2SAT 83–100
[2024-06-17 04:07] LABS: Basophils # (auto) 0 10 ^3/uL (0-0.2); Basophils % (auto) 0.2 % (0.0-2.0); Eosinophils # (auto) 0 10 ^3/uL (0-0.8); Hemoglobin 14.3 g/dL (13.5-17.5); Lymphocytes # (auto) 0.3 10 ^3/uL (0.4-5.4); Lymphocytes % (auto) 3.9 % (10.0-50.0); Mean Corpuscular Hemoglobin 30.8 pg (28.0-32.0); Mean Corpuscular Hgb Conc. 33.1 g/dL (32.0-36.0); Mean Corpuscular Volume 92.8 fL (80.0-100.0); Monocytes # (auto) 0.5 10 ^3/uL (0-1.3); Monocytes % (auto) 5.6 % (0.0-12.0); Neutrophils % (auto) 90.3 % (37.0-80.0); Nucleated Red Blood Cells % 0.1 %; Platelet Count (auto) 77 10^3/uL (140-450); Red Blood Cells 4.64 10^6/uL (4.5-5.90); Red Cell Distribution Width 15.3 % (11.8-14.3); White Blood Cell 8.9 10^3/uL (4.4-10.8)
[2024-06-17 04:24] LABS: Alkaline Phosphatase 89 U/L (46-116); Anion Gap 8 (5-15); BUN/Creatinine Ratio 37.1 (10.0-20.0); Calcium 8.7 mg/dL (8.7-10.4); Potassium 3.8 mmol/L (3.5-5.1)
[2024-06-17 04:33] LABS: Alanine Aminotransferase 52 U/L (7-40); Albumin 2.8 g/dL (3.2-4.8); Aspartate Aminotransferase 69 U/L (13-40); Bilirubin, Total 2.2 mg/dL (0.2-1.0); Blood Urea Nitrogen 73 mg/dL (9-23); Carbon Dioxide 37 mmol/L (20-31); Chloride 110 mmol/L (98-107); Glucose 67 mg/dL (74-106); Sodium 155 mmol/L (136-145); Total Protein 4.8 g/dL (5.7-8.2)
--- NOTE | 2024-06-17 05:42 | DVH ---
CHEST RADIOGRAPH Indication: Intubated. Technique: Single frontal view of the chest was obtained Comparison: XY CHEST PORTABLE on DOS: 06/15/24, XY CHEST XRAY 1 VIEW on DOS: 06/13/24, XY CHEST XRAY 1 EW on DOS: 06/13/24 IMPRESSION: Heart appears stable in size. The lungs appear clear without focal airspace opacity, effusion, or pn eumothorax. Support lines and tubes appear unchanged in position. Enteric tube tip is likely just within the stomach, consider advancement of 4-5 cm for ideal position ing.
[2024-06-17] MEDS: DEXTROSE (50%) 50ML SYRG IV PRN (06:26)
[2024-06-17 08:01] LABS: Base Excess 7.6 mmol/L (-2.0-3.0)
--- NOTE | 2024-06-17 17:25 | DVH ---
CHEST RADIOGRAPH Indication: ngt placement Technique: Single frontal view of the chest was obtained COMPARISON: XY CHEST XRAY 1 VIEW on DOS: 06/17/24, XY CHEST PORTABLE on DOS: 06/15/24, XY CHEST XRAY 1 EW on DOS: 06/13/24, XY CHEST XRAY 1 VIEW on DOS: 06/13/24, XY CHEST PORTABLE on DOS: 06/12/24 FINDINGS: Lines and Tubes: Endotracheal tube, enteric catheter and right central venous catheter in satisfactor y position. Lungs: Mild congestion Pleura: No effusion. No pneumothorax. Cardiomediastinal contours: Unremarkable Bones: Unremarkable IMPRESSION: Lines and tubes in satisfactory position. No significant interval change.
--- NOTE | 2024-06-17 20:17 | DVHPN2 ---
Progress Note - Dictate Date Seen: Jun 17, 2024 Medical Necessity Reason Pt with a Central, PICC or Fol: Yes The following are medically ne: Garcia Catheter Reason for garcia catheter: Strict I&O Subjective Mr. Jeffry Cummins is a 79 years old right-handed gentleman with a history of hypertension, coronary artery disease, heart attack, COPD, he came to the [facility] on 06/11/2024 with a chief company of shortness of breath for 2 hours. The patient was intubated on 06/11/2024 in the emergency room. I saw him on 05/29/2024 for altered mental status He had seizure-like activity in the ER on 06/13/2024 I have seen and examined the patient, I have discussed with his nurse, he is intubated, sedated, eyes closed, partially awake, but he only responsive to touch and painful stimuli He failed CPAP Urinalysis, 06/12/2024: WBC: 1, urine leukocyte esterase: Negative ABG, 06/13/2024, pCO2: 66.3, HCO3: 31.5 WBC/HB/PLT/MCV, 05/25/2024: 17.9/14.4/211/93.1, 05/29/2024: 10.8/13.9/190/91.6, 06/03/2024: 21.3/316/178/90.7, 06/12/2024: 0.8/11.8/101/91.2, 06/13/2024: 7.3/12.4/36/91.6 BUN/CR, 05/29/2024: 28/0.78, 06/28/2024, 39/1.29 HGB A1c, 05/23/24: 6.5 TBI/AST/ALT/AP, 06/12/2024: 1.7/40/40/69 TG/HDL/LDL/HDL, 05/23/2024: 118/112/48/49 TSH, 05/23/2024: 0.71 EEG, 06/13/2024: Mildly abnormal Chest X ray, 06/11/2024: ETT tip is at the karoline. Retraction by [address] head, 05/20/2024: 1. Global brain atrophy and chronic schema changes without evidence of acute intracranial process. 2. Punctate intra-axial and extra-axial calcifications may be due to remote history of TORCH infection. 3. Mild bilateral maxillary and ethmoid sinus disease. MR head, 06/13/2024: There is no acute intracranial process. vital signs Vital Sign Date Time Temp Pulse Resp B/P (MAP) Pulse Ox O2 Delivery O2 Flow Rate FiO2 06/17/24 18:45 99.9 103 13 93/64 (74) 91 211.8 06/17/24 18:33 40 06/17/24 18:00 Mechanical Ventilator+ Total Intake and Output 06/16/24 06/16/24 06/17/24 15:00 23:00 07:00 Intake Total 122.840 ml 249.318 ml 266.588 ml Output Total 675 ml 550 ml Balance 122.840 ml -425.682 ml -283.412 ml medications Current Medications Medications Dose Ordered Sig/Mindy Route Start Time Stop Time Status Last Admin Dose Admin Albuterol 2.5 mg Q4HPRN PRN NEB 06/11/24 13:45 06/17/24 06:34 2.5 MG Ipratropium [place] 0.5 mg Q4HPRN PRN NEB 06/11/24 13:45 06/17/24 06:34 0.5 MG Sodium Chloride 10 ml Q8HR IV 06/11/24 14:00 06/17/24 14:04 10 ML Ondansetron HCl 4 mg Q4HP PRN IV 06/11/24 13:45 Docusate Sodium 100 mg BIDPRN PRN PO 06/11/24 13:45 Acetaminophen 650 mg Q6HP PRN PO 06/11/24 13:45 Nitroglycerin 0.4 mg Q5MINP PRN SL 06/11/24 16:00 Morphine Sulfate 2 mg Q30M PRN IV 06/11/24 16:00 Fentanyl Citrate 250 ml @ 2.5 mls/hr Q24H IV 06/11/24 16:15 06/15/24 21:23 10 MLS/HR Atorvastatin Calcium 40 mg HS PO 06/12/24 22:00 06/16/24 22:05 40 MG Enteral Nutritional Formula 1,000 ml 30ML/HR GT 06/12/24 13:30 Diagnostic Test (Pha) 1 strip ACHS 06/12/24 17:00 06/17/24 16:42 1 STRIP Insulin Human Regular ACHS SC 06/12/24 17:00 06/15/24 22:18 3 UNITS Dextrose 50 ml UD PRN IV 06/12/24 13:30 06/17/24 12:30 50 ML Midazolam HCl 50 ml @ 1 mls/hr Q24H IV 06/13/24 06:45 06/15/24 08:12 1 MLS/HR Propofol 100 ml @ 2.727 mls/ hr Q24H IV 06/13/24 08:15 06/13/24 20:21 8.181 MLS/HR Lorazepam 1 mg Q5MINP PRN IV 06/13/24 10:45 Aspirin 81 mg DAILY PO 06/14/24 10:00 06/16/24 11:39 81 MG Norepinephrine Bitartrate 250 ml @ 1.875 mls/ hr Q24H IV 06/14/24 15:45 06/17/24 00:58 18.75 MLS/HR Methylprednisolone Sodium Succinate 40 mg Q12HR IV 06/14/24 22:00 06/17/24 09:46 40 MG Insulin Glargine 25 units DAILY@1000 SC 06/15/24 10:00 06/16/24 10:20 25 UNITS Hydralazine HCl 10 mg Q4HP PRN IV 06/15/24 11:15 06/15/24 11:22 10 MG Nafcillin Sodium 2 gm/Sodium Chloride 100 ml @ 100 mls/hr Q4H IV 06/15/24 12:00 06/17/24 16:11 100 MLS/HR Dexmedetomidine HCl 400 mcg/ Dextrose 100 ml @ 1.136 mls/ hr Q24H IV 06/16/24 12:15 06/16/24 12:28 1.136 MLS/HR Purified Water 100 ml Q4HR GT 06/16/24 14:00 06/17/24 20:03 100 ML objective The patient is well-nourished and well-developed with no distress. The patient is intubated MENTAL STATUS: Subjective CRANIAL NERVES: Pupils are equal, round and reactive.There are corneal reflexes and doll's eyes phenomenon. No signs of facial weakness. There are weak gagging or coughing reflexes SENSATION: Responses to pain stimuli. MOTOR: Normal tone in the upper and lower extremity. Normal muscle bulk. No fasciculations. He moves the arms REFLEXES: Deep tendon reflexes are symmetrical. No pathological reflexes. CEREBELLAR/COORDINATION: Deferred GAIT/STATION: deferred. laboratory and microbiology Laboratory Tests 06/17/24 03:38 Test 06/17/24 03:38 Range/Units Serum Glucose 67 L 74-106 mg/dL Problem List Altered mental status/Coma Hypoxic encephalopathy Metabolic encephalopathy Toxic encephalopathy ? Status epileptics ? Vegetative status New onset seizure activity ? Acute symptomatic seizure ? 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 Although this document has been carefully reviewed, there may still be some phonetic and typographical errors. These areas are purely typographical due to imperfections of the software programs, and do not reflect any compromise in the patient's medical carecercosis Acute on chronic respiratory failure Pneumonia Prognosis guarded Dietary Evaluation Review Comments: 1. Pt's current feeding Glucerna 30ml/hr (43g pro, 864 kcal) x 24 hr will support 79% Pro and 87% kcal, if kidney failure is considered. 2. Pt's protein requirement is 134g if his kidney function improves while still on vent. 3. CCHO-60 diet if no renal failure when Pt is off vent and passing speech eval. 4. CCHO-60 with renal specific 50 gprotein restriction when pt is off vent passing speech eval and has KD. 5. CCHO-60 Renal Standard if pt is off vent with renal failure and on dialysis and pass speech eval. Expected Outcomes/Goals: controlled glucose level, minimized nephrotic syndrome. gradual wt loss. Plan discussed with: Other CALEB NORMAN MD Jun 17, 2024 20:17
--- NOTE | 2024-06-17 21:18 | DVHPN2 ---
Subjective Intubated, and sedated Reviewed: Care Plan, H&P, Labs, Medications, Previous Orders, Radiology, Other (Consultations) Changes from previous H/P or p: No Changes Objective Vitals Vital Signs Date Time Temp Pulse Resp B/P (MAP) Pulse Ox O2 Delivery O2 Flow Rate FiO2 06/17/24 20:01 98 18 68/44 (52) 93 40 06/17/24 18:45 99.9 211.8 06/17/24 18:00 Mechanical Ventilator+ Intake/Output Intake and Output 06/17/24 07:00 Intake Total 649.996 ml Output Total 1225 ml Balance -575.004 ml Intake Oral 0 ml IV Total 448.996 ml Tube Feeding 201 ml Output Urine Total 1225 ml Stool Total 0 ml General Appearance: Other (Intubated, and sedated) HEENT: Mucous membr. moist/pink, Other (Pupils four and nonreactive) Lungs: Other (MV sounds) Cardiovascular: Normal S1, Normal S2, Other (Tachycardia) Abdomen: Soft Genitourinary: Other (Aguero's) Neuro: Other (Sedated) Psych/Mental Status: Other (Sedated) Medications Current Medications Medications Dose Ordered Sig/Mindy Route Start Time Stop Time Status Last Admin Dose Admin Albuterol 2.5 mg Q4HPRN PRN NEB 06/11/24 13:45 06/17/24 06:34 2.5 MG Ipratropium [place] 0.5 mg Q4HPRN PRN NEB 06/11/24 13:45 06/17/24 06:34 0.5 MG Sodium Chloride 10 ml Q8HR IV 06/11/24 14:00 06/17/24 14:04 10 ML Ondansetron HCl 4 mg Q4HP PRN IV 06/11/24 13:45 Docusate Sodium 100 mg BIDPRN PRN PO 06/11/24 13:45 Acetaminophen 650 mg Q6HP PRN PO 06/11/24 13:45 Nitroglycerin 0.4 mg Q5MINP PRN SL 06/11/24 16:00 Morphine Sulfate 2 mg Q30M PRN IV 06/11/24 16:00 Fentanyl Citrate 250 ml @ 2.5 mls/hr Q24H IV 06/11/24 16:15 06/15/24 21:23 10 MLS/HR Atorvastatin Calcium 40 mg HS PO 06/12/24 22:00 06/16/24 22:05 40 MG Enteral Nutritional Formula 1,000 ml 30ML/HR GT 06/12/24 13:30 Diagnostic Test (Pha) 1 strip ACHS 06/12/24 17:00 06/17/24 16:42 1 STRIP Insulin Human Regular ACHS SC 06/12/24 17:00 06/15/24 22:18 3 UNITS Dextrose 50 ml UD PRN IV 06/12/24 13:30 06/17/24 20:53 50 ML Midazolam HCl 50 ml @ 1 mls/hr Q24H IV 06/13/24 06:45 06/15/24 08:12 1 MLS/HR Propofol 100 ml @ 2.727 mls/ hr Q24H IV 06/13/24 08:15 06/13/24 20:21 8.181 MLS/HR Lorazepam 1 mg Q5MINP PRN IV 06/13/24 10:45 Aspirin 81 mg DAILY PO 06/14/24 10:00 06/16/24 11:39 81 MG Norepinephrine Bitartrate 250 ml @ 1.875 mls/ hr Q24H IV 06/14/24 15:45 06/17/24 00:58 18.75 MLS/HR Methylprednisolone Sodium Succinate 40 mg Q12HR IV 06/14/24 22:00 06/17/24 09:46 40 MG Insulin Glargine 25 units DAILY@1000 SC 06/15/24 10:00 06/16/24 10:20 25 UNITS Hydralazine HCl 10 mg Q4HP PRN IV 06/15/24 11:15 06/15/24 11:22 10 MG Nafcillin Sodium 2 gm/Sodium Chloride 100 ml @ 100 mls/hr Q4H IV 06/15/24 12:00 06/17/24 20:00 100 MLS/HR Dexmedetomidine HCl 400 mcg/ Dextrose 100 ml @ 1.136 mls/ hr Q24H IV 06/16/24 12:15 06/16/24 12:28 1.136 MLS/HR Purified Water 100 ml Q4HR GT 06/16/24 14:00 06/17/24 20:03 100 ML Laboratory Results Laboratory Tests 06/17/24 03:38 Chemistry Test 06/17/24 03:38 Albumin 2.8 g/dL (3.2-4.8) L Calcium Level 8.7 mg/dL (8.7-10.4) Total Protein 4.8 g/dL (5.7-8.2) L LFT Test 06/17/24 03:38 Alanine Aminotransferase (ALT) 52 U/L (7-40) H Alkaline Phosphatase 89 U/L (46-116) Aspartate Amino Transferase (AST) 69 U/L (13-40) H Total Bilirubin 2.2 mg/dL (0.2-1.0) H Urinalysis Test 06/11/24 11:24 Urine Color Light-yellow (Yellow) Urine Clarity Clear (Clear) Urine pH 6.0 (5.0-9.0) Urine Specific [place] 1.011 (1.001-1.035) Urine Protein Negative (Negative) Urine Ketones Negative (Negative) Urine Blood 1+ /uL (Negative) H Urine Nitrite Negative (Negative) Urine Bilirubin Negative (Negative) Urine Urobilinogen Normal mg/dL (Negative) Urine Leukocyte Esterase Negative /uL (Negative) Urine RBC 1 /hpf (0 - 3) Urine Microscopic WBC < 1 /HPF (0-3) Urine Squamous Epithelial Cells None seen /hpf (<5) Urine Bacteria None seen /hpf (None Seen) Urine Hyaline Casts Few /lpf (0 - 2) Urine Glucose 1+ mg/dL (Normal) H Blood Gas Results Test 06/17/24 07:54 Arterial Blood pH 7.450 (7.350-7.450) FiO2 % 40.0 Microbiology Microbiology Date/Time Source Procedure Growth Status 06/14/24 06:00 Nose MRSA Screen - Final Complete 06/12/24 11:30 Blood Blood Culture - Final NO GROWTH AFTER 5 DAYS OF INCUBATION. Complete 06/11/24 18:38 Bronchial Brushings Gram Stain - Final Complete 06/11/24 18:38 Respiratory Culture - Final Staphylococcus aureus Complete Assessment/Plan Assessment/Plan Covering Carson Rico NP: #Acute hypoxic/metabolic/toxic encephalopathy in the setting of septic shock #New onset seizure activity #Acute hypoxic respiratory failure due to MSSA pneumonia #Septic shock with leukocytosis due to MSSA pneumonia #DICK with hypernatremia due to VMN in the setting of shock Pulmonology, and neurology are following Continue broad-spectrum IV antibiotics Continue oxygen therapy via MV as indicated To restart IV vasopressors as needed Monitor electrolytes closely and replace/correct as needed Avoid nephrotoxic agents Free water to correct hypernatremia Reviewed available cultures, labs, ABGs, and imaging studies including CXRs, and brain MRI Continue close monitoring Goals of care discussed with the patient's granddaughter for 20 minutes; full code. 66 minutes of critical care time. Late Entry. This medical document was created using an electronic medical record system with computerized dictation system. Although this document has been carefully reviewed, there might still be some phonetic and typographical errors. These areas are purely typographical due to imperfections of the software programs, and do not reflect any compromise in the patient's medical care. Plan discussed with: Other (Nurse; ) My Orders Orders - ADONAY GOOD MD Procedure Category Date Status Time Chest Portable XY 06/17/24 Resulted 16:37 Date of Service: Jun 17, 2024 Billing Provider: ADONAY GOOD MD Common Visit Codes: 10357-SZRZMVTL CARE 30-74 MIN (66 minutes) Secondary Visit Codes: 47507-[id number] CARE PLAN 30 MINUTES (20 minutes) ADONAY GOOD MD Jun 17, 2024 21:18
--- NOTE | 2024-06-17 21:37 | DVHPN2 ---
Progress Note - Dictate Date Seen: Jun 17, 2024 Medical Necessity Reason Pt with a Central, PICC or Fol: Yes The following are medically ne: Garcia Catheter Reason for garcia catheter: Strict I&O Subjective Patient seen and examined at bedside. intubated on mechanical ventilator. Overnight events reviewed. vital signs Vital Sign Date Time Temp Pulse Resp B/P (MAP) Pulse Ox O2 Delivery O2 Flow Rate FiO2 06/17/24 20:01 98 18 68/44 (52) 93 40 06/17/24 18:45 99.9 211.8 06/17/24 18:00 Mechanical Ventilator+ Total Intake and Output 06/16/24 06/16/24 06/17/24 15:00 23:00 07:00 Intake Total 122.840 ml 249.318 ml 277.838 ml Output Total 675 ml 550 ml Balance 122.840 ml -425.682 ml -272.162 ml medications Current Medications Medications Dose Ordered Sig/Mindy Route Start Time Stop Time Status Last Admin Dose Admin Albuterol 2.5 mg Q4HPRN PRN NEB 06/11/24 13:45 06/17/24 06:34 2.5 MG Ipratropium [place] 0.5 mg Q4HPRN PRN NEB 06/11/24 13:45 06/17/24 06:34 0.5 MG Sodium Chloride 10 ml Q8HR IV 06/11/24 14:00 06/17/24 14:04 10 ML Ondansetron HCl 4 mg Q4HP PRN IV 06/11/24 13:45 Docusate Sodium 100 mg BIDPRN PRN PO 06/11/24 13:45 Acetaminophen 650 mg Q6HP PRN PO 06/11/24 13:45 Nitroglycerin 0.4 mg Q5MINP PRN SL 06/11/24 16:00 Morphine Sulfate 2 mg Q30M PRN IV 06/11/24 16:00 Fentanyl Citrate 250 ml @ 2.5 mls/hr Q24H IV 06/11/24 16:15 06/15/24 21:23 10 MLS/HR Atorvastatin Calcium 40 mg HS PO 06/12/24 22:00 06/16/24 22:05 40 MG Enteral Nutritional Formula 1,000 ml 30ML/HR GT 06/12/24 13:30 Diagnostic Test (Pha) 1 strip ACHS 06/12/24 17:00 06/17/24 16:42 1 STRIP Insulin Human Regular ACHS SC 06/12/24 17:00 06/15/24 22:18 3 UNITS Dextrose 50 ml UD PRN IV 06/12/24 13:30 06/17/24 20:53 50 ML Midazolam HCl 50 ml @ 1 mls/hr Q24H IV 06/13/24 06:45 06/15/24 08:12 1 MLS/HR Propofol 100 ml @ 2.727 mls/ hr Q24H IV 06/13/24 08:15 06/13/24 20:21 8.181 MLS/HR Lorazepam 1 mg Q5MINP PRN IV 06/13/24 10:45 Aspirin 81 mg DAILY PO 06/14/24 10:00 06/16/24 11:39 81 MG Norepinephrine Bitartrate 250 ml @ 1.875 mls/ hr Q24H IV 06/14/24 15:45 06/17/24 00:58 18.75 MLS/HR Methylprednisolone Sodium Succinate 40 mg Q12HR IV 06/14/24 22:00 06/17/24 09:46 40 MG Insulin Glargine 25 units DAILY@1000 SC 06/15/24 10:00 06/16/24 10:20 25 UNITS Hydralazine HCl 10 mg Q4HP PRN IV 06/15/24 11:15 06/15/24 11:22 10 MG Nafcillin Sodium 2 gm/Sodium Chloride 100 ml @ 100 mls/hr Q4H IV 06/15/24 12:00 06/17/24 20:00 100 MLS/HR Dexmedetomidine HCl 400 mcg/ Dextrose 100 ml @ 1.136 mls/ hr Q24H IV 06/16/24 12:15 06/16/24 12:28 1.136 MLS/HR Purified Water 100 ml Q4HR GT 06/16/24 14:00 06/17/24 20:03 100 ML objective Gen.: Patient lying in bed in medical ICU. Intubated on mechanical ventilator Head: Normocephalic, atraumatic. Eyes: PERRLA. Ears: Normal external anatomy. Throat: Endotracheal tube and orogastric tube in place. Neck: Supple, trachea midline. Chest: Transmitted breath sounds bilaterally. Decreased air entry bilaterally. No wheezing. Bibasilar crackles. Cardiovascular: Positive S1, positive S2. Regular rate and rhythm. Abdomen: Positive bowel sounds in all 4 quadrants. Soft, nontender, nondistended. : Garcia in place. Normal external genitalia. Rectal: Deferred. Skin: Warm, dry. Intact. Extremities: 2+ radial pulses bilaterally. No lower extremity edema. Neuro: Off sedation laboratory and microbiology Laboratory Tests 06/17/24 03:38 Test 06/17/24 03:38 Range/Units Serum Glucose 67 L 74-106 mg/dL Assessment/Plan Impression: Acute on chronic hypoxic respiratory failure On mechanical ventilator Acute exacerbation of COPD Morbid obesity Shock, hypovolemic versus sepsis Hemoptysis Elevated troponin Pulmonary vascular congestion Events: Remains on vent support Vent settings; respiratory rate of 18, tidal volume 400, PEEP of 5, FiO2 at 40%. Patient had seizure on 06/13/24 Obtain EEG. Having episodes of hypoglycemia Accu-Cheks q.6 hours Off Fentanyl Off Precedex Lasix 20 mg IVP x1 and Robinul 0.2 mg x1 given on 06/16/24 ABG reviewed, compensated Pressors for hemodynamic support. On Levophed 8 mcg/min Titrate to keep MAP above 65 mmHg/SBP above 90 mmHg Continue bronchodilators PRN Continue steroids - Solu-Medrol q.12 hours Continue antibiotics Lovenox on hold d/t low platelet count Tube feeds for nutritional support Free water supplementation Monitor renal function Monitor electrolytes. Supplement as necessary. Monitor ins and outs SBT/KALYN CPAP in AM. Labs and imaging reviewed. Rest of plan as noted below. Plan: s/p intubation on mechanical ventilator Vent settings; respiratory rate of 18, tidal volume 400, PEEP of 5, FiO2 at 40%. Titrate FIO2 to keep O2 saturation above 92%. VAP bundle Daily ABG and CXR while intubated. Off sedation Pressors for hemodynamic support. Titrate to keep MAP above 65 mmHg/SBP above 90 mmHg. Elevated troponin Cardiology recommendations appreciated Continue bronchodilators. Continue steroids F/u cultures. Monitor renal function due to acute kidney injury. Monitor electrolytes. Supplement as necessary. Monitor ins and outs Nutritional support. Tube feeds Accu-Cheks, ISS GI/DVT prophylaxis. Condition: Critical Prognosis: Poor given multiple comorbidities. Rest of plan per hospitalist and other consultants. A total of 35 minutes of critical care time was spent reviewing the patient record, examining the patient, making a diagnostic and therapeutic plan, discussing this plan with the medical personnel, following up on diagnostic studies and following the patient for clinical stability excluding any and all procedures. At least 50% of this time was spent in direct, [id number] contact. Thank you RAFA Blackwell for allowing me to participate in this patient's care. Further recommendations will depend on patient's clinical course. Please do not hesitate to contact me if you have any questions or concerns. This medical document was created using an electronic medical record system with [employer] system. Although this document has been carefully reviewed, there may still be some phonetic and typographical errors. These areas are purely typographical due to imperfections of the software programs, and do not reflect any compromise in the patient's medical care. Dietary Evaluation Review Comments: 1. Pt's current feeding Glucerna 30ml/hr (43g pro, 864 kcal) x 24 hr will support 79% Pro and 87% kcal, if kidney failure is considered. 2. Pt's protein requirement is 134g if his kidney function improves while still on vent. 3. CCHO-60 diet if no renal failure when Pt is off vent and passing speech eval. 4. CCHO-60 with renal specific 50 gprotein restriction when pt is off vent passing speech eval and has KD. 5. CCHO-60 Renal Standard if pt is off vent with renal failure and on dialysis and pass speech eval. Expected Outcomes/Goals: controlled glucose level, minimized nephrotic syndrome. gradual wt loss. Plan discussed with: Other (MALICK Villarreal) Critical Care Time(min): 35 RYAN ROMERO MD Jun 17, 2024 21:37
[2024-06-17] MEDS: ALBUMIN 5% 250 ML IV ONE ×2 (22:31→22:32)
[2024-06-18] VITALS (111 sets, daily range): BP systolic 63–137; BP diastolic 33–81; PULSE 60–116; RESP 10–27; TEMP 97.5–99.7; O2SAT 94–100
[2024-06-18 04:59] LABS: Basophils # (auto) 0 10 ^3/uL (0-0.2); Basophils % (auto) 0.2 % (0.0-2.0); Eosinophils # (auto) 0 10 ^3/uL (0-0.8); Hematocrit 41.5 % (41.0-53.0); Hemoglobin 13.8 g/dL (13.5-17.5); Lymphocytes # (auto) 0.3 10 ^3/uL (0.4-5.4); Lymphocytes % (auto) 4.9 % (10.0-50.0); Mean Corpuscular Hemoglobin 31.1 pg (28.0-32.0); Mean Corpuscular Hgb Conc. 33.2 g/dL (32.0-36.0); Mean Corpuscular Volume 93.7 fL (80.0-100.0); Monocytes # (auto) 0.4 10 ^3/uL (0-1.3); Monocytes % (auto) 7.3 % (0.0-12.0); Neutrophils # (auto) 5.1 10 ^3/uL (1.6-8.6); Neutrophils % (auto) 87.6 % (37.0-80.0); Nucleated Red Blood Cells % 0.2 %; Platelet Count (auto) 71 10^3/uL (140-450); Red Blood Cells 4.43 10^6/uL (4.5-5.90); Red Cell Distribution Width 15.9 % (11.8-14.3); White Blood Cell 5.8 10^3/uL (4.4-10.8)
[2024-06-18 05:19] LABS: Alkaline Phosphatase 73 U/L (46-116); Anion Gap 11 (5-15); BUN/Creatinine Ratio 35.4 (10.0-20.0); Glucose 87 mg/dL (74-106)
[2024-06-18 05:22] LABS: Alanine Aminotransferase 50 U/L (7-40); Albumin 2.8 g/dL (3.2-4.8); Aspartate Aminotransferase 66 U/L (13-40); Blood Urea Nitrogen 73 mg/dL (9-23); Calcium 8.4 mg/dL (8.7-10.4); Carbon Dioxide 33 mmol/L (20-31); Chloride 115 mmol/L (98-107); Potassium 3.3 mmol/L (3.5-5.1); Sodium 159 mmol/L (136-145); Total Protein 4.6 g/dL (5.7-8.2)
[2024-06-18] MEDS: POTASSIUM CHL 20MEQ/100ML 100 ML IV ONE (05:45)
[2024-06-18 05:51] LABS: Bilirubin, Total 2.6 mg/dL (0.2-1.0)
[2024-06-18 07:07] LABS: Base Excess 5.4 mmol/L (-2.0-3.0)
[2024-06-18] MEDS: POTASSIUM EFFERVESENT TAB 25 MEQ PO ONE (09:44)
[2024-06-18] MEDS: SODIUM CHLORIDE 0.9% 1,000 ML IV ONE (09:44)
[2024-06-18] MEDS: D5W 5% 1,000 ML IV SCH (09:45)
[2024-06-18] MEDS: FREE WATER GT SCH (09:50)
--- NOTE | 2024-06-18 10:25 | DVHPN2 ---
Subjective Patient chemically sedated Reviewed: Care Plan, H&P, Labs, Medications, Previous Orders, Radiology, Other (Consultations) Changes from previous H/P or p: No Changes General: Per HPI Objective Vitals Vital Signs Date Time Temp Pulse Resp B/P (MAP) Pulse Ox O2 Delivery O2 Flow Rate FiO2 06/18/24 10:09 71 21 110/65 (80) 99 35 06/18/24 08:00 Mechanical Ventilator+ 06/18/24 07:15 99.3 210.7 Intake/Output Intake and Output 06/18/24 07:00 Intake Total 1277.105 ml Output Total 1100 ml Balance 177.105 ml Intake Oral 400 ml IV Total 717.105 ml Tube Feeding 160 ml Output Urine Total 1100 ml Stool Total 0 ml General Appearance: Other (Intubated, and sedated) HEENT: Mucous membr. moist/pink, Other (Pupils four and nonreactive) Lungs: Other (MV sounds) Cardiovascular: Normal S1, Normal S2, Other (Tachycardia) Abdomen: Soft Genitourinary: Other (Aguero's) Neuro: Other (Sedated) Skin: Dry, Intact Psych/Mental Status: Other (Sedated) Medications Current Medications Medications Dose Ordered Sig/Mindy Route Start Time Stop Time Status Last Admin Dose Admin Albuterol 2.5 mg Q4HPRN PRN NEB 06/11/24 13:45 06/17/24 06:34 2.5 MG Ipratropium [place] 0.5 mg Q4HPRN PRN NEB 06/11/24 13:45 06/17/24 06:34 0.5 MG Sodium Chloride 10 ml Q8HR IV 06/11/24 14:00 06/18/24 06:07 10 ML Ondansetron HCl 4 mg Q4HP PRN IV 06/11/24 13:45 Docusate Sodium 100 mg BIDPRN PRN PO 06/11/24 13:45 Acetaminophen 650 mg Q6HP PRN PO 06/11/24 13:45 Nitroglycerin 0.4 mg Q5MINP PRN SL 06/11/24 16:00 Morphine Sulfate 2 mg Q30M PRN IV 06/11/24 16:00 Fentanyl Citrate 250 ml @ 2.5 mls/hr Q24H IV 06/11/24 16:15 06/15/24 21:23 10 MLS/HR Atorvastatin Calcium 40 mg HS PO 06/12/24 22:00 06/17/24 21:34 40 MG Enteral Nutritional Formula 1,000 ml 30ML/HR GT 06/12/24 13:30 Diagnostic Test (Pha) 1 strip ACHS 06/12/24 17:00 06/18/24 06:37 1 STRIP Insulin Human Regular ACHS SC 06/12/24 17:00 06/15/24 22:18 3 UNITS Dextrose 50 ml UD PRN IV 06/12/24 13:30 06/18/24 06:37 50 ML Midazolam HCl 50 ml @ 1 mls/hr Q24H IV 06/13/24 06:45 06/15/24 08:12 1 MLS/HR Propofol 100 ml @ 2.727 mls/ hr Q24H IV 06/13/24 08:15 06/18/24 08:33 2.727 MLS/HR Lorazepam 1 mg Q5MINP PRN IV 06/13/24 10:45 Aspirin 81 mg DAILY PO 06/14/24 10:00 06/16/24 11:39 81 MG Norepinephrine Bitartrate 250 ml @ 1.875 mls/ hr Q24H IV 06/14/24 15:45 06/17/24 20:00 15 MLS/HR Methylprednisolone Sodium Succinate 40 mg Q12HR IV 06/14/24 22:00 06/18/24 09:50 40 MG Hydralazine HCl 10 mg Q4HP PRN IV 06/15/24 11:15 06/15/24 11:22 10 MG Nafcillin Sodium 2 gm/Sodium Chloride 100 ml @ 100 mls/hr Q4H IV 06/15/24 12:00 06/18/24 08:03 100 MLS/HR Dexmedetomidine HCl 400 mcg/ Dextrose 100 ml @ 1.136 mls/ hr Q24H IV 06/16/24 12:15 06/16/24 12:28 1.136 MLS/HR Dextrose 1,000 ml @ 75 mls/hr [id number] IV 06/18/24 08:30 06/18/24 09:45 75 MLS/HR Purified Water 200 ml Q4HR GT 06/18/24 10:00 06/18/24 09:50 200 ML Laboratory Results Laboratory Tests 06/18/24 04:20 Chemistry Test 06/18/24 04:20 Albumin 2.8 g/dL (3.2-4.8) L Calcium Level 8.4 mg/dL (8.7-10.4) L Magnesium Level 2.9 mg/dL (1.6-2.6) H Total Protein 4.6 g/dL (5.7-8.2) L LFT Test 06/18/24 04:20 Alanine Aminotransferase (ALT) 50 U/L (7-40) H Alkaline Phosphatase 73 U/L (46-116) Aspartate Amino Transferase (AST) 66 U/L (13-40) H Total Bilirubin 2.6 mg/dL (0.2-1.0) H Urinalysis Test 06/11/24 11:24 Urine Color Light-yellow (Yellow) Urine Clarity Clear (Clear) Urine pH 6.0 (5.0-9.0) Urine Specific [place] 1.011 (1.001-1.035) Urine Protein Negative (Negative) Urine Ketones Negative (Negative) Urine Blood 1+ /uL (Negative) H Urine Nitrite Negative (Negative) Urine Bilirubin Negative (Negative) Urine Urobilinogen Normal mg/dL (Negative) Urine Leukocyte Esterase Negative /uL (Negative) Urine RBC 1 /hpf (0 - 3) Urine Microscopic WBC < 1 /HPF (0-3) Urine Squamous Epithelial Cells None seen /hpf (<5) Urine Bacteria None seen /hpf (None Seen) Urine Hyaline Casts Few /lpf (0 - 2) Urine Glucose 1+ mg/dL (Normal) H Blood Gas Results Test 06/18/24 07:01 Arterial Blood pH 7.421 (7.350-7.450) FiO2 % 40.0 Microbiology Microbiology Date/Time Source Procedure Growth Status 06/14/24 06:00 Nose MRSA Screen - Final Complete 06/12/24 11:30 Blood Blood Culture - Final NO GROWTH AFTER 5 DAYS OF INCUBATION. Complete 06/11/24 18:38 Bronchial Brushings Gram Stain - Final Complete 06/11/24 18:38 Respiratory Culture - Final Staphylococcus aureus Complete Labs and/or images reviewed: Labs reviewed by me, Image(s) reviewed by me Assessment/Plan Assessment/Plan Impression: -acute on chronic hypoxic and hypercarbic respiratory failure -COPD with exacerbation -recent history of Staphylococcus aureus pneumonia -obesity -thrombocytopenia -atrial fibrillation -obesity -acute kidney injury, probable vasomotor nephropathy -acute on chronic systolic and diastolic heart failure Plan: Events: Patient having periods of hypoglycemia. Tube feeding has been held. Patient continues to get Lantus. Patient also noted to have worsening hypernatremia. -stop Lantus -start free water and D5W -IV bolus of 1 L of normal saline -continue current sedation, Ativan for breakthrough seizure activity -continue tube feeding -change abx to Nafcillin -pulmonology consultation: Recommendations reviewed. -cardiology consultation: Recommendations reviewed -start free water 200 mL every 4 hours -repeat labs, chest x-ray, ABG in a.m. Critical care time spent with patient discussing and formulating plan of care: 40 minutes. This does not include time spent performing procedures. This medical document was created using an electronic medical record system with [employer] dictation system. Although this document has been carefully reviewed, there may still be some phonetic and typographical errors. These areas are purely typographical due to imperfections of the software programs, and do not reflect any compromise in the patient's medical care. Plan discussed with: Patient, Other (RN) My Orders Orders - YOLI KAY NP Procedure Category Date Status Time D5w 5% (Dextrose 5%) PHA 06/18/24 In Process 08:30 Free Water PHA 06/18/24 In Process 10:00 Basic Metabolic Panel LAB 06/19/24 Verified 04:00 Complete Blood Count LAB 06/19/24 Verified 04:00 Chest Portable XY 06/19/24 Logged 04:00 Date of Service: Jun 18, 2024 Billing Provider: YOLI KAY NP Common Visit Codes: [id number] CARE 30-74 MIN YOLI KAY NP Jun 18, 2024 10:24
--- NOTE | 2024-06-18 10:44 | DVH ---
EXAM: XR Chest, 1 View CLINICAL INDICATION: INTUBATED TECHNIQUE: Frontal view of the chest. COMPARISON: XY CHEST PORTABLE on DOS: 06/17/24, XY CHEST XRAY 1 VIEW on DOS: 06/17/24, XY CHEST PORTABL E on DOS: 06/15/24, XY CHEST XRAY 1 VIEW on DOS: 06/13/24, XY CHEST XRAY 1 VIEW on DOS: 06/13/24 FINDINGS: LUNGS AND PLEURAL SPACES: Pulmonary venous congestion. No consolidation. No pneumothorax. HEART: Unremarkable. No cardiomegaly. MEDIASTINUM: Unremarkable. Normal mediastinal contour. BONES/JOINTS: Unremarkable. No acute fracture. TUBES, LINES AND DEVICES: Stable tubes lines.. OTHER FINDINGS: . None. . .. IMPRESSION: 1. Pulmonary venous congestion. 2. No significant change from the prior exam.
--- NOTE | 2024-06-18 11:36 | DVHPN2 ---
Progress Note - Dictate Date Seen: Jun 18, 2024 Medical Necessity Reason Pt with a Central, PICC or Fol: Yes The following are medically ne: Garcia Catheter Reason for garcia catheter: Strict I&O Subjective Mr. Jeffry Cummins is a 79 years old right-handed gentleman with a history of hypertension, coronary artery disease, heart attack, COPD, he came to the [facility] on 06/11/2024 with a chief company of shortness of breath for 2 hours. The patient was intubated on 06/11/2024 in the emergency room. I saw him on 05/29/2024 for altered mental status He had seizure-like activity in the ER on 06/13/2024 I have seen and examined the patient, I have discussed with his nurse, he is intubated, sedated, eyes closed, he is reasonable to painful stimuli He was agitated earlier this morning Propofol 9 mcg/minutes, fentanyl 50 mcg/hour, Levo 8 mcg/minute Urinalysis, 06/12/2024: WBC: 1, urine leukocyte esterase: Negative ABG, 06/13/2024, pCO2: 66.3, HCO3: 31.5 WBC/HB/PLT/MCV, 05/25/2024: 17.9/14.4/211/93.1, 05/29/2024: 10.8/13.9/190/91.6, 06/03/2024: 21.3/316/178/90.7, 06/12/2024: 0.8/11.8/101/91.2, 06/13/2024: 7.3/12.4/36/91.6 BUN/CR, 05/29/2024: 28/0.78, 06/28/2024, 39/1.29 HGB A1c, 05/23/24: 6.5 TBI/AST/ALT/AP, 06/12/2024: 1.7/40/40/69 TG/HDL/LDL/HDL, 05/23/2024: 118/112/48/49 TSH, 05/23/2024: 0.71 EEG, 06/13/2024: Mildly abnormal Chest X ray, 06/11/2024: ETT tip is at the karoline. Retraction by [address] head, 05/20/2024: 1. Global brain atrophy and chronic schema changes without evidence of acute intracranial process. 2. Punctate intra-axial and extra-axial calcifications may be due to remote history of TORCH infection. 3. Mild bilateral maxillary and ethmoid sinus disease. MR head, 06/13/2024: There is no acute intracranial process. vital signs Vital Sign Date Time Temp Pulse Resp B/P (MAP) Pulse Ox O2 Delivery O2 Flow Rate FiO2 06/18/24 10:45 108/66 06/18/24 10:15 98.1 71 22 98 208.6 06/18/24 10:09 35 06/18/24 10:00 Mechanical Ventilator+ Total Intake and Output 06/17/24 06/17/24 06/18/24 15:00 23:00 07:00 Intake Total 107.730 ml 382.500 ml 791.875 ml Output Total 550 ml 550 ml Balance 107.730 ml -167.500 ml 241.875 ml medications Current Medications Medications Dose Ordered Sig/Mindy Route Start Time Stop Time Status Last Admin Dose Admin Albuterol 2.5 mg Q4HPRN PRN NEB 06/11/24 13:45 06/17/24 06:34 2.5 MG Ipratropium [place] 0.5 mg Q4HPRN PRN NEB 06/11/24 13:45 06/17/24 06:34 0.5 MG Sodium Chloride 10 ml Q8HR IV 06/11/24 14:00 06/18/24 06:07 10 ML Ondansetron HCl 4 mg Q4HP PRN IV 06/11/24 13:45 Docusate Sodium 100 mg BIDPRN PRN PO 06/11/24 13:45 Acetaminophen 650 mg Q6HP PRN PO 06/11/24 13:45 Nitroglycerin 0.4 mg Q5MINP PRN SL 06/11/24 16:00 Morphine Sulfate 2 mg Q30M PRN IV 06/11/24 16:00 Fentanyl Citrate 250 ml @ 2.5 mls/hr Q24H IV 06/11/24 16:15 06/15/24 21:23 10 MLS/HR Atorvastatin Calcium 40 mg HS PO 06/12/24 22:00 06/17/24 21:34 40 MG Enteral Nutritional Formula 1,000 ml 30ML/HR GT 06/12/24 13:30 Diagnostic Test (Pha) 1 strip ACHS 06/12/24 17:00 06/18/24 06:37 1 STRIP Insulin Human Regular ACHS SC 06/12/24 17:00 06/15/24 22:18 3 UNITS Dextrose 50 ml UD PRN IV 06/12/24 13:30 06/18/24 06:37 50 ML Midazolam HCl 50 ml @ 1 mls/hr Q24H IV 06/13/24 06:45 06/15/24 08:12 1 MLS/HR Propofol 100 ml @ 2.727 mls/ hr Q24H IV 06/13/24 08:15 06/18/24 08:33 2.727 MLS/HR Lorazepam 1 mg Q5MINP PRN IV 06/13/24 10:45 Aspirin 81 mg DAILY PO 06/14/24 10:00 06/16/24 11:39 81 MG Norepinephrine Bitartrate 250 ml @ 1.875 mls/ hr Q24H IV 06/14/24 15:45 06/17/24 20:00 15 MLS/HR Methylprednisolone Sodium Succinate 40 mg Q12HR IV 06/14/24 22:00 06/18/24 09:50 40 MG Hydralazine HCl 10 mg Q4HP PRN IV 06/15/24 11:15 06/15/24 11:22 10 MG Nafcillin Sodium 2 gm/Sodium Chloride 100 ml @ 100 mls/hr Q4H IV 06/15/24 12:00 06/18/24 08:03 100 MLS/HR Dexmedetomidine HCl 400 mcg/ Dextrose 100 ml @ 1.136 mls/ hr Q24H IV 06/16/24 12:15 06/16/24 12:28 1.136 MLS/HR Dextrose 1,000 ml @ 75 mls/hr [id number] IV 06/18/24 08:30 06/18/24 09:45 75 MLS/HR Purified Water 200 ml Q4HR GT 06/18/24 10:00 06/18/24 09:50 200 ML objective The patient is well-nourished and well-developed with no distress. The patient is intubated MENTAL STATUS: Subjective CRANIAL NERVES: Pupils are equal, round and nonreactive, very small. There are corneal reflexes and doll's eyes phenomenon. No signs of facial weakness. There are weak gagging or coughing reflexes SENSATION: Responses to pain stimuli. MOTOR: Normal tone in the upper and lower extremity. Normal muscle bulk. No fasciculations. He moves the arms REFLEXES: Deep tendon reflexes are symmetrical. No pathological reflexes. CEREBELLAR/COORDINATION: Deferred GAIT/STATION: deferred. laboratory and microbiology Laboratory Tests 06/18/24 04:20 Test 06/18/24 04:20 Range/Units Serum Glucose 87 74-106 mg/dL Problem List Altered mental status/Coma Hypoxic encephalopathy Metabolic encephalopathy Toxic encephalopathy ? Status epileptics ? Vegetative status New onset seizure activity ? Acute symptomatic seizure ? 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 Although this document has been carefully reviewed, there may still be some phonetic and typographical errors. These areas are purely typographical due to imperfections of the software programs, and do not reflect any compromise in the patient's medical carecercosis Acute on chronic respiratory failure Pneumonia Prognosis guarded Dietary Evaluation Review Comments: 1. Pt's current feeding Glucerna 30ml/hr (43g pro, 864 kcal) x 24 hr will support 79% Pro and 87% kcal, if kidney failure is considered. 2. Pt's protein requirement is 134g if his kidney function improves while still on vent. 3. CCHO-60 diet if no renal failure when Pt is off vent and passing speech eval. 4. CCHO-60 with renal specific 50 gprotein restriction when pt is off vent passing speech eval and has KD. 5. CCHO-60 Renal Standard if pt is off vent with renal failure and on dialysis and pass speech eval. Expected Outcomes/Goals: controlled glucose level, minimized nephrotic syndrome. gradual wt loss. Plan discussed with: Other Critical Care Time(min): 35 CALEB NORMAN MD Jun 18, 2024 11:36
[2024-06-18] MEDS: PANTOPRAZOLE 40 MG/10 ML VIAL INJ IV ONE (16:48)
--- NOTE | 2024-06-18 19:01 | DVHPN2 ---
Progress Note - Dictate Date Seen: Jun 18, 2024 Medical Necessity Reason Pt with a Central, PICC or Fol: Yes The following are medically ne: Garcia Catheter Reason for garcia catheter: Strict I&O Subjective Patient seen and examined at bedside. intubated on mechanical ventilator. Overnight events reviewed. vital signs Vital Sign Date Time Temp Pulse Resp B/P (MAP) Pulse Ox O2 Delivery O2 Flow Rate FiO2 06/18/24 18:49 95/50 06/18/24 18:45 97.9 85 19 97 208.2 06/18/24 18:30 30 06/18/24 18:00 Mechanical Ventilator+ Total Intake and Output 06/17/24 06/17/24 06/18/24 14:59 22:59 06:59 Intake Total 108.866 ml 391.250 ml 789.375 ml Output Total 550 ml 550 ml Balance 108.866 ml -158.750 ml 239.375 ml medications Current Medications Medications Dose Ordered Sig/Mindy Route Start Time Stop Time Status Last Admin Dose Admin Albuterol 2.5 mg Q4HPRN PRN NEB 06/11/24 13:45 06/17/24 06:34 2.5 MG Ipratropium [place] 0.5 mg Q4HPRN PRN NEB 06/11/24 13:45 06/17/24 06:34 0.5 MG Sodium Chloride 10 ml Q8HR IV 06/11/24 14:00 06/18/24 14:00 10 ML Ondansetron HCl 4 mg Q4HP PRN IV 06/11/24 13:45 Docusate Sodium 100 mg BIDPRN PRN PO 06/11/24 13:45 Acetaminophen 650 mg Q6HP PRN PO 06/11/24 13:45 Nitroglycerin 0.4 mg Q5MINP PRN SL 06/11/24 16:00 Morphine Sulfate 2 mg Q30M PRN IV 06/11/24 16:00 Fentanyl Citrate 250 ml @ 2.5 mls/hr Q24H IV 06/11/24 16:15 06/18/24 12:19 2.5 MLS/HR Atorvastatin Calcium 40 mg HS PO 06/12/24 22:00 06/17/24 21:34 40 MG Enteral Nutritional Formula 1,000 ml 30ML/HR GT 06/12/24 13:30 Diagnostic Test (Pha) 1 strip ACHS 06/12/24 17:00 06/18/24 17:01 1 STRIP Insulin Human Regular ACHS SC 06/12/24 17:00 06/18/24 17:03 3 UNITS Dextrose 50 ml UD PRN IV 06/12/24 13:30 06/18/24 06:37 50 ML Midazolam HCl 50 ml @ 1 mls/hr Q24H IV 06/13/24 06:45 06/15/24 08:12 1 MLS/HR Propofol 100 ml @ 2.727 mls/ hr Q24H IV 06/13/24 08:15 06/18/24 08:33 2.727 MLS/HR Lorazepam 1 mg Q5MINP PRN IV 06/13/24 10:45 Aspirin 81 mg DAILY PO 06/14/24 10:00 06/16/24 11:39 81 MG Norepinephrine Bitartrate 250 ml @ 1.875 mls/ hr Q24H IV 06/14/24 15:45 06/18/24 18:49 35.625 MLS/HR Methylprednisolone Sodium Succinate 40 mg Q12HR IV 06/14/24 22:00 06/18/24 09:50 40 MG Hydralazine HCl 10 mg Q4HP PRN IV 06/15/24 11:15 06/15/24 11:22 10 MG Nafcillin Sodium 2 gm/Sodium Chloride 100 ml @ 100 mls/hr Q4H IV 06/15/24 12:00 06/18/24 16:05 100 MLS/HR Dexmedetomidine HCl 400 mcg/ Dextrose 100 ml @ 1.136 mls/ hr Q24H IV 06/16/24 12:15 06/16/24 12:28 1.136 MLS/HR Dextrose 1,000 ml @ 75 mls/hr [id number] IV 06/18/24 08:30 06/18/24 09:45 75 MLS/HR Purified Water 200 ml Q4HR GT 06/18/24 10:00 06/18/24 18:01 200 ML Pantoprazole Sodium 40 mg DAILY IV 06/19/24 10:00 objective Gen.: Patient lying in bed in medical ICU. Intubated on mechanical ventilator Head: Normocephalic, atraumatic. Eyes: PERRLA. Ears: Normal external anatomy. Throat: Endotracheal tube and orogastric tube in place. Neck: Supple, trachea midline. Chest: Transmitted breath sounds bilaterally. Decreased air entry bilaterally. No wheezing. Bibasilar crackles. Cardiovascular: Positive S1, positive S2. Regular rate and rhythm. Abdomen: Positive bowel sounds in all 4 quadrants. Soft, nontender, nondistended. : Garcia in place. Normal external genitalia. Rectal: Deferred. Skin: Warm, dry. Intact. Extremities: 2+ radial pulses bilaterally. No lower extremity edema. Neuro: Off sedation laboratory and microbiology Laboratory Tests 06/18/24 04:20 Test 06/18/24 04:20 Range/Units Serum Glucose 87 74-106 mg/dL Assessment/Plan Impression: Acute on chronic hypoxic respiratory failure On mechanical ventilator Acute exacerbation of COPD Obesity, BMI 34.3 Shock, hypovolemic versus sepsis Hemoptysis Elevated troponin Pulmonary vascular congestion Events: Remains on vent support Vent settings; respiratory rate of 18, tidal volume 400, PEEP of 5, FiO2 at 40%. Having episodes of hypoglycemia Accu-Cheks q.6 hours ABG reviewed, compensated Chest x-ray reviewed, demonstrates pulmonary venous congestion. On Levophed for hemodynamic support. Increasing pressors requirements. Titrate to keep MAP above 65 mmHg/SBP above 90 mmHg Continue bronchodilators PRN Continue steroids - Solu-Medrol q.12 hours Continue antibiotics Lovenox on hold d/t low platelet count Tube feeds for nutritional support Free water supplementation Monitor renal function Monitor electrolytes. Supplement as necessary. Monitor ins and outs SBT/KALYN Labs and imaging reviewed. Rest of plan as noted below. Plan: s/p intubation on mechanical ventilator Vent settings Titrate FIO2 to keep O2 saturation above 92%. VAP bundle Pressors for hemodynamic support. Titrate to keep MAP above 65 mmHg/SBP above 90 mmHg. Cardiology recommendations appreciated Continue bronchodilators. Continue steroids F/u cultures. Monitor renal function. Monitor electrolytes. Supplement as necessary. Monitor ins and outs Nutritional support. Tube feeds Accu-Cheks, ISS GI/DVT prophylaxis. Condition: Critical Prognosis: Poor given multiple comorbidities. Rest of plan per hospitalist and other consultants. A total of 35 minutes of critical care time was spent reviewing the patient record, examining the patient, making a diagnostic and therapeutic plan, discussing this plan with the medical personnel, following up on diagnostic studies and following the patient for clinical stability excluding any and all procedures. At least 50% of this time was spent in direct, [id number] contact. Thank you RAFA Rico for allowing me to participate in this patient's care. Further recommendations will depend on patient's clinical course. Please do not hesitate to contact me if you have any questions or concerns. This medical document was created using an electronic medical record system with [employer] dictation system. Although this document has been carefully reviewed, there may still be some phonetic and typographical errors. These areas are purely typographical due to imperfections of the software programs, and do not reflect any compromise in the patient's medical care. Dietary Evaluation Review Comments: 1. Pt's current feeding Glucerna 30ml/hr (43g pro, 864 kcal) x 24 hr will support 79% Pro and 87% kcal, if kidney failure is considered. 2. Pt's protein requirement is 134g if his kidney function improves while still on vent. 3. CCHO-60 diet if no renal failure when Pt is off vent and passing speech eval. 4. CCHO-60 with renal specific 50 gprotein restriction when pt is off vent passing speech eval and has KD. 5. CCHO-60 Renal Standard if pt is off vent with renal failure and on dialysis and pass speech eval. Expected Outcomes/Goals: controlled glucose level, minimized nephrotic syndrome. gradual wt loss. Plan discussed with: Daughter, Other (MALICK Martinez, RT, PROCESS MANUFA[employer]URING ENGINEER) Critical Care Time(min): 35 RYAN ROMERO MD Jun 18, 2024 19:01
[2024-06-18 20:45] LABS: Anion Gap 12 (5-15); Carbon Dioxide 30 mmol/L (20-31)
[2024-06-18 20:50] LABS: BUN/Creatinine Ratio 36.7 (10.0-20.0)
[2024-06-18 20:53] LABS: Blood Urea Nitrogen 79 mg/dL (9-23); Calcium 7.5 mg/dL (8.7-10.4); Chloride 114 mmol/L (98-107); Glucose 255 mg/dL (74-106); Sodium 156 mmol/L (136-145)
[2024-06-19] VITALS (104 sets, daily range): BP systolic 65–163; BP diastolic 40–92; PULSE 55–134; RESP 8–26; TEMP 97.5–99; O2SAT 95–100
[2024-06-19] MEDS: PHENYLEPHRINE IV 250 ML IV SCH (02:45)
--- NOTE | 2024-06-19 04:14 | DVH ---
CHEST RADIOGRAPH Indication: respiratory failure Technique: Single frontal view of the chest was obtained Comparison: Chest radiograph dated 06/18/2024 FINDINGS: Lines and Tubes: There is a right central venous catheter which terminates in the superior vena cava. Endotracheal tube terminates 1.7 cm above the karoline. The enteric tube courses below the left hemidi aphragm and the tip extends outside the field of view. Lungs: Pulmonary venous congestion similar to prior study. Pleura: No effusion. No pneumothorax. Cardiomediastinal contours: Unremarkable Bones: No acute osseous abnormality. IMPRESSION: 1. Stable position of the support lines and tubes. 2. Pulmonary venous congestion similar to prior study.
[2024-06-19 04:30] LABS: Anion Gap 11 (5-15); Basophils # (auto) 0 10 ^3/uL (0-0.2); Basophils % (auto) 0.1 % (0.0-2.0); Carbon Dioxide 31 mmol/L (20-31); Eosinophils # (auto) 0 10 ^3/uL (0-0.8); Hematocrit 43.2 % (41.0-53.0); Hemoglobin 14.2 g/dL (13.5-17.5); Lymphocytes # (auto) 0.3 10 ^3/uL (0.4-5.4); Lymphocytes % (auto) 3.6 % (10.0-50.0); Mean Corpuscular Hemoglobin 31.1 pg (28.0-32.0); Mean Corpuscular Hgb Conc. 32.9 g/dL (32.0-36.0); Mean Corpuscular Volume 94.6 fL (80.0-100.0); Monocytes # (auto) 0.5 10 ^3/uL (0-1.3); Monocytes % (auto) 5.5 % (0.0-12.0); Neutrophils # (auto) 7.7 10 ^3/uL (1.6-8.6); Neutrophils % (auto) 90.8 % (37.0-80.0); Nucleated Red Blood Cells % 0.3 %; Platelet Count (auto) 79 10^3/uL (140-450); Potassium 4.2 mmol/L (3.5-5.1); Red Blood Cells 4.57 10^6/uL (4.5-5.90); Red Cell Distribution Width 16.5 % (11.8-14.3); White Blood Cell 8.4 10^3/uL (4.4-10.8)
[2024-06-19 04:36] LABS: BUN/Creatinine Ratio 32.9 (10.0-20.0)
[2024-06-19 04:46] LABS: Blood Urea Nitrogen 72 mg/dL (9-23); Calcium 7.9 mg/dL (8.7-10.4); Chloride 111 mmol/L (98-107); Glucose 282 mg/dL (74-106); Sodium 153 mmol/L (136-145)
[2024-06-19 08:50] LABS: Base Excess 0.5 mmol/L (-2.0-3.0)
--- NOTE | 2024-06-19 09:17 | DVHPN2 ---
Subjective Patient chemically sedated Reviewed: Care Plan, H&P, Labs, Medications, Previous Orders, Radiology, Other (Consultations) Changes from previous H/P or p: No Changes General: Per HPI Objective Vitals Vital Signs Date Time Temp Pulse Resp B/P (MAP) Pulse Ox O2 Delivery O2 Flow Rate FiO2 06/19/24 08:00 59 18 91/59 (70) 98 30 06/19/24 06:30 98.4 209.1 06/19/24 06:00 Mechanical Ventilator+ Intake/Output Intake and Output 06/19/24 07:00 Intake Total 6081.751 ml Output Total 1075 ml Balance 5006.751 ml Intake Oral 630 ml IV Total 4306.751 ml Tube Feeding 545 ml Other 600 ml Output Urine Total 1075 ml Stool Total 0 ml General Appearance: Other (Patient chemically sedated) HEENT: Mucous membr. moist/pink, Other Lungs: Other Cardiovascular: Normal S1, Normal S2, Other Abdomen: Soft Genitourinary: Other Extremities: Normal pulses Neuro: Other Skin: Dry, Intact Psych/Mental Status: Other Medications Current Medications Medications Dose Ordered Sig/Mindy Route Start Time Stop Time Status Last Admin Dose Admin Albuterol 2.5 mg Q4HPRN PRN NEB 06/11/24 13:45 06/17/24 06:34 2.5 MG Ipratropium [place] 0.5 mg Q4HPRN PRN NEB 06/11/24 13:45 06/17/24 06:34 0.5 MG Sodium Chloride 10 ml Q8HR IV 06/11/24 14:00 06/19/24 05:45 10 ML Ondansetron HCl 4 mg Q4HP PRN IV 06/11/24 13:45 Docusate Sodium 100 mg BIDPRN PRN PO 06/11/24 13:45 Acetaminophen 650 mg Q6HP PRN PO 06/11/24 13:45 Nitroglycerin 0.4 mg Q5MINP PRN SL 06/11/24 16:00 Morphine Sulfate 2 mg Q30M PRN IV 06/11/24 16:00 Fentanyl Citrate 250 ml @ 2.5 mls/hr Q24H IV 06/11/24 16:15 06/18/24 12:19 2.5 MLS/HR Atorvastatin Calcium 40 mg HS PO 06/12/24 22:00 06/18/24 21:34 40 MG Enteral Nutritional Formula 1,000 ml 30ML/HR GT 06/12/24 13:30 Diagnostic Test (Pha) 1 strip ACHS 06/12/24 17:00 06/19/24 06:30 1 STRIP Insulin Human Regular ACHS SC 06/12/24 17:00 06/19/24 06:32 4 UNITS Dextrose 50 ml UD PRN IV 06/12/24 13:30 06/18/24 06:37 50 ML Midazolam HCl 50 ml @ 1 mls/hr Q24H IV 06/13/24 06:45 06/15/24 08:12 1 MLS/HR Propofol 100 ml @ 2.727 mls/ hr Q24H IV 06/13/24 08:15 06/18/24 21:00 5.454 MLS/HR Lorazepam 1 mg Q5MINP PRN IV 06/13/24 10:45 Aspirin 81 mg DAILY PO 06/14/24 10:00 06/16/24 11:39 81 MG Norepinephrine Bitartrate 250 ml @ 1.875 mls/ hr Q24H IV 06/14/24 15:45 06/19/24 07:51 20.625 MLS/HR Methylprednisolone Sodium Succinate 40 mg Q12HR IV 06/14/24 22:00 06/18/24 21:34 40 MG Hydralazine HCl 10 mg Q4HP PRN IV 06/15/24 11:15 06/15/24 11:22 10 MG Nafcillin Sodium 2 gm/Sodium Chloride 100 ml @ 100 mls/hr Q4H IV 06/15/24 12:00 06/19/24 09:13 100 MLS/HR Dexmedetomidine HCl 400 mcg/ Dextrose 100 ml @ 1.136 mls/ hr Q24H IV 06/16/24 12:15 06/16/24 12:28 1.136 MLS/HR Dextrose 1,000 ml @ 75 mls/hr [id number] IV 06/18/24 08:30 06/19/24 06:30 75 MLS/HR Purified Water 200 ml Q4HR GT 06/18/24 10:00 06/19/24 05:45 200 ML Pantoprazole Sodium 40 mg DAILY IV 06/19/24 10:00 Phenylephrine HCl 250 ml @ 30 mls/hr Q8H20M IV 06/19/24 02:45 06/19/24 07:50 105 MLS/HR Insulin Glargine 10 units DAILY@1000 SC 06/19/24 10:00 UNV Laboratory Results Laboratory Tests 06/19/24 03:30 Chemistry Test 06/18/24 20:06 06/19/24 03:30 Calcium Level 7.5 mg/dL (8.7-10.4) L 7.9 mg/dL (8.7-10.4) L Urinalysis Test 06/11/24 11:24 Urine Color Light-yellow (Yellow) Urine Clarity Clear (Clear) Urine pH 6.0 (5.0-9.0) Urine Specific [place] 1.011 (1.001-1.035) Urine Protein Negative (Negative) Urine Ketones Negative (Negative) Urine Blood 1+ /uL (Negative) H Urine Nitrite Negative (Negative) Urine Bilirubin Negative (Negative) Urine Urobilinogen Normal mg/dL (Negative) Urine Leukocyte Esterase Negative /uL (Negative) Urine RBC 1 /hpf (0 - 3) Urine Microscopic WBC < 1 /HPF (0-3) Urine Squamous Epithelial Cells None seen /hpf (<5) Urine Bacteria None seen /hpf (None Seen) Urine Hyaline Casts Few /lpf (0 - 2) Urine Glucose 1+ mg/dL (Normal) H Blood Gas Results Test 06/19/24 08:08 Arterial Blood pH 7.358 (7.350-7.450) FiO2 % 30.0 Microbiology Microbiology Date/Time Source Procedure Growth Status 06/14/24 06:00 Nose MRSA Screen - Final Complete 06/12/24 11:30 Blood Blood Culture - Final NO GROWTH AFTER 5 DAYS OF INCUBATION. Complete 06/11/24 18:38 Bronchial Brushings Gram Stain - Final Complete 06/11/24 18:38 Respiratory Culture - Final Staphylococcus aureus Complete Labs and/or images reviewed: Labs reviewed by me, Image(s) reviewed by me Assessment/Plan Assessment/Plan Impression: -acute on chronic hypoxic and hypercarbic respiratory failure -COPD with exacerbation -recent history of Staphylococcus aureus pneumonia -obesity -thrombocytopenia -atrial fibrillation -obesity -acute kidney injury, probable vasomotor nephropathy -acute on chronic systolic and diastolic heart failure Plan: Events: His blood sugars improved. Sodium decreasing at acceptable rate. BUN and creatinine remains elevated. -continue free water and D5W -CVP reading -patient now on Levophed and Fito-Synephrine. Start hydrocortisone 50 mg IV b.i.d. -nephrology consultation -continue nafcillin -pulmonology consultation: Recommendations reviewed. -cardiology consultation: Recommendations reviewed -continue free water every 4 hours -bowel regimen -repeat labs, chest x-ray, ABG in a.m. Critical care time spent with patient discussing and formulating plan of care: 40 minutes. This does not include time spent performing procedures. This medical document was created using an electronic medical record system with [employer] system. Although this document has been carefully reviewed, there may still be some phonetic and typographical errors. These areas are purely typographical due to imperfections of the software programs, and do not reflect any compromise in the patient's medical care. Plan discussed with: Patient, Other (RN) My Orders Orders - YOLI KAY NP Procedure Category Date Status Time Pantoprazole PHA 06/19/24 In Process (Protonix) 10:00 Abg W/ Co-Ox RT 06/19/24 Logged 05:32 *Dr. [facility] CONS 06/19/24 Transmitted -[place] 08:29 Insulin Lantus PHA 06/19/24 Logged ([place]) (Lantus) 10:00 Chest Portable XY 06/20/24 Logged 04:00 Date of Service: Jun 19, 2024 Billing Provider: YOLI KAY NP Common Visit Codes: [id number] CARE 30-74 MIN YOLI KAY NP Jun 19, 2024 09:17
[2024-06-19] MEDS: D5W 5% 1,000 ML IV SCH (09:45)
--- NOTE | 2024-06-19 09:55 | DVHINCON2 ---
Date of service: Jun 19, 2024 Referring Physician Nolan Rico nurse practitioner Reason for Consultation Acute kidney injury, hypernatremia History of Present Illness Patient is 79-year-old male with past medical history significant for CAD, COPD, High Lipids, HTN, and NC who was admitted back on June 11 for shortness of breath and hypoxemia. Hospital course significant for patient intubated on ventilator increasing BUN and creatinine and hypernatremia, Nephrology is consulted to help with the management Past Medical History PAST MEDICAL HISTORY: CAD, COPD, High Lipids, HTN, NC , Past Surgical History Surgical History: PTCA Allergies: Coded Allergies: Clopidogrel (Verified Allergy, Unknown, 02/11/19) Home Meds Reported Medications Ipratropium-Albuterol (COMBIVENT RESPIMAT) Respimat Aer, 1 PUFF IN Q4-6HR PRN for 40 Days, #8 05/24/24 Montelukast Sodium (MONTELUKAST SODIUM) 10 Mg Tab, 1 TAB PO DAILY for 30 Days, #30 05/24/24 Dupilumab (Dupixent) 300 Mg/2 Ml Inj, 300 MG SC EVERY 2 WEEKS for 28 Days, #4 05/24/24 Dvkeswkqbh-Pjxxurlsyxwdtn-Saqt (Breztri Aerosphere 160-9-4.8 Mcg/Act) 1 Aer Aer, 2 PUFF IN BID for 30 Days, #10.7 05/24/24 Prednisone (Prednisone) 10 Mg Tab, 1 TAB PO DAILY for 30 Days, #30 05/24/24 Sacubitril-Valsartan (Entresto 24-26 mg) 1 Tab Tab, 1 TAB PO BID for 90 Days, #180 05/22/24 Tamsulosin Hcl (Tamsulosin Hcl) 0.4 Mg Cap, 1 CAP PO DAILY for 90 Days, #90 05/22/24 Atorvastatin Calcium (ATORVASTATIN CALCIUM) 40 Mg Tab, 1 TAB PO DAILY for 90 Days, #90 05/22/24 Carvedilol (Carvedilol) 12.5 Mg Tab, 1 TAB PO BID for 90 Days, #180 05/22/24 Current Medications Current Medications Medications (Trade) Dose Ordered Sig/Mindy Route PRN Reason Start Time Stop Time Status Last Admin Pantoprazole Sodium (Protonix) 40 mg DAILY IV 06/19/24 10:00 06/19/24 10:31 Phenylephrine HCl 250 ml @ 30 mls/hr Q8H20M IV 06/19/24 02:45 06/19/24 10:26 Insulin Glargine (Lantus) 10 units DAILY@1000 SC 06/19/24 10:00 06/19/24 12:27 Hydrocortisone Sodium Succinate (Solu-CORTEF INJECTION) 50 mg Q12HR IV 06/19/24 10:00 06/19/24 10:15 DC Lactulose 30 ml BID GT 06/19/24 10:00 06/19/24 12:24 Dextrose 1,000 ml @ 150 mls/hr Q6H40M IV 06/19/24 09:45 06/19/24 14:54 Fluconazole 100 ml @ 100 mls/hr 10,11 IV 06/19/24 10:00 06/19/24 12:17 DC Cefepime HCl 50 ml @ 12.5 mls/hr Q12H IV 06/19/24 14:00 06/19/24 14:09 Doxycycline Hyclate 100 ml @ 50 mls/hr Q12H IV 06/19/24 10:15 06/19/24 12:17 DC Hydrocortisone Sodium Succinate (Solu-CORTEF INJECTION) 100 mg Q12HR IV 06/19/24 10:00 06/19/24 12:24 Fluconazole 100 ml @ 100 mls/hr 1300,1400 IV 06/19/24 13:00 06/19/24 14:09 Doxycycline Hyclate 100 ml @ 50 mls/hr Q12H IV 06/19/24 14:00 Review of Systems Can not be obtained H&P Exam Vital Signs/I&O Vital Sign Date Time Temp Pulse Resp B/P (MAP) Pulse Ox O2 Delivery O2 Flow Rate FiO2 06/19/24 14:38 68 18 88/54 (65) 99 30 06/19/24 14:00 Mechanical Ventilator+ 06/19/24 11:30 98.2 208.8 Intake and Output 06/18/24 06/19/24 18:59 06:59 Intake Total 3203.007 ml 2913.744 ml Output Total 675 ml 400 ml Balance 2528.007 ml 2513.744 ml Intake Oral 630 ml IV Total 2373.007 ml 1968.744 ml Tube Feeding 230 ml 315 ml Other 600 ml Output Urine Total 675 ml 400 ml Stool Total 0 ml Physical Exam Patient intubated on the ventilator Lungs clear to auscultation bilaterally Cardiac exam regular rate and rhythm GI obese bowel sounds are present Aguero catheter Extremities no clubbing cyanosis or edema Neuro patient is sedated Labs/Diagnostic Data Labs/Diagnostic Data Laboratory Tests Test 06/19/24 13:00 06/19/24 10:36 06/19/24 10:35 06/19/24 08:08 Range/Units POC Glucose 250 H 249 H 70-106 mg/dl Sodium Level 152 H 136-145 mmol/L Potassium Level 4.1 3.5-5.1 mmol/L Chloride Level 112 H 98-107 mmol/L Carbon Dioxide Level 30 20-31 mmol/L Anion Gap 10 5-15 Blood Urea Nitrogen 72 H 9-23 mg/dL Creatinine 2.19 H 0.700-1.30 mg/dL Glomerular Filtration Rate Calc 30 >90 mL/min BUN/Creatinine Ratio 32.9 H 10.0-20.0 Serum Glucose 305 H 74-106 mg/dL Calcium Level 7.5 L 8.7-10.4 mg/dL Magnesium Level 2.6 1.6-2.6 mg/dL Vitamin D 25-Hydroxy 28.4 L 30.0-100 ng/mL Hepatitis B Surface Antigen Negative Negative Hepatitis C Antibody Negative Negative Blood Gas Specimen Type Arterial Blood Gas Sample Site Right radial Blood Gas Patient Temperature 37.0 Arterial Blood Date Drawn [id number] Arterial Blood pH 7.358 7.350-7.450 Arterial Blood Partial Pressure CO2 48.4 H 35.0-48.0 mmHg Arterial Blood Partial Pressure O2 63.0 L 83.0-108.0 mmHg Arterial Blood HCO3 26.6 21.0-28.0 mmol/L Arterial Blood Oxygen Saturation 89.8 L 94.0-98.0 % Arterial Blood Base Excess 0.5 -2.0-3.0 mmol/L Arterial Blood Oxyhemoglobin 89.4 L 94.0-98.0 % Arterial Blood Carboxyhemoglobin 0.3 L 0.5-1.5 % Arterial Blood Methemoglobin 0.2 0.0-1.5 % Jun Test Modified Blood Gas Total Hemoglobin 14.50 13.5-17.5 g/dL Blood Gas Set Respiration Rate 18.0 Blood Gas Modality Vent - ac Blood Gas Spontaneous Rate 18 FiO2 % 30.0 Blood Gas Tidal Volume 400.0 Blood Gas PEEP or CPAP 5.0 Test 06/19/24 06:29 06/19/24 03:30 06/19/24 03:21 06/18/24 21:33 Range/Units POC Glucose 245 H 276 H 264 H 70-106 mg/dl White Blood Count 8.4 # 4.4-10.8 10^3/uL Red Blood Count 4.57 4.5-5.90 10^6/uL Hemoglobin 14.2 13.5-17.5 g/dL Hematocrit 43.2 41.0-53.0 % Mean Corpuscular Volume 94.6 80.0-100.0 fL Mean Corpuscular Hemoglobin 31.1 28.0-32.0 pg Mean Corpuscular Hemoglobin Concent 32.9 32.0-36.0 g/dL Red Cell Distribution Width 16.5 H 11.8-14.3 % Platelet Count 79 L 140-450 10^3/uL Mean Platelet Volume 10.4 6.9-10.8 fL Neutrophils (%) (Auto) 90.8 H 37.0-80.0 % Lymphocytes (%) (Auto) 3.6 L 10.0-50.0 % Monocytes (%) (Auto) 5.5 0.0-12.0 % Eosinophils (%) (Auto) 0.0 0.0-7.0 % Basophils (%) (Auto) 0.1 0.0-2.0 % Neutrophils # (Auto) 7.7 1.6-8.6 10 ^3/uL Lymphocytes # (Auto) 0.3 L 0.4-5.4 10 ^3/uL Monocytes # (Auto) 0.5 0-1.3 10 ^3/uL Eosinophils # (Auto) 0 0-0.8 10 ^3/uL Basophils # (Auto) 0 0-0.2 10 ^3/uL Nucleated Red Blood Cells 0.3 % Sodium Level 153 H 136-145 mmol/L Potassium Level 4.2 3.5-5.1 mmol/L Chloride Level 111 H 98-107 mmol/L Carbon Dioxide Level 31 20-31 mmol/L Anion Gap 11 5-15 Blood Urea Nitrogen 72 H 9-23 mg/dL Creatinine 2.19 H 0.700-1.30 mg/dL Glomerular Filtration Rate Calc 30 >90 mL/min BUN/Creatinine Ratio 32.9 H 10.0-20.0 Serum Glucose 282 H 74-106 mg/dL Calcium Level 7.9 L 8.7-10.4 mg/dL Phosphorus Level 5.5 H 2.4-5.1 mg/dL Magnesium Level 2.7 H 1.6-2.6 mg/dL Parathyroid Hormone (Intact) 753.0 H 18.4-80.1 pg/mL Test 06/18/24 20:58 06/18/24 20:06 06/18/24 16:57 06/18/24 11:31 Range/Units POC Glucose 226 H 179 H 122 H 70-106 mg/dl Sodium Level 156 H 136-145 mmol/L Potassium Level 4.0 3.5-5.1 mmol/L Chloride Level 114 H 98-107 mmol/L Carbon Dioxide Level 30 20-31 mmol/L Anion Gap 12 5-15 Blood Urea Nitrogen 79 H 9-23 mg/dL Creatinine 2.15 H 0.700-1.30 mg/dL Glomerular Filtration Rate Calc 31 >90 mL/min BUN/Creatinine Ratio 36.7 H 10.0-20.0 Serum Glucose 255 #H 74-106 mg/dL Calcium Level 7.5 L 8.7-10.4 mg/dL Test 06/18/24 08:08 06/18/24 07:01 06/18/24 06:52 06/18/24 06:31 Range/Units POC Glucose 145 H 130 H 59 L 70-106 mg/dl Blood Gas Specimen Type Arterial Blood Gas Sample Site Right radial Blood Gas Patient Temperature 37.0 Arterial Blood Date Drawn [id number] Arterial Blood pH 7.421 7.350-7.450 Arterial Blood Partial Pressure CO2 48.5 H 35.0-48.0 mmHg Arterial Blood Partial Pressure O2 80.3 L 83.0-108.0 mmHg Arterial Blood HCO3 30.8 H 21.0-28.0 mmol/L Arterial Blood Oxygen Saturation 94.9 94.0-98.0 % Arterial Blood Base Excess 5.4 H -2.0-3.0 mmol/L Arterial Blood Oxyhemoglobin 94.3 94.0-98.0 % Arterial Blood Carboxyhemoglobin 0.3 L 0.5-1.5 % Arterial Blood Methemoglobin 0.3 0.0-1.5 % Jun Test Modified Blood Gas Total Hemoglobin 13.30 L 13.5-17.5 g/dL Blood Gas Set Respiration Rate 18.0 Blood Gas Modality Vent - ac FiO2 % 40.0 Blood Gas Tidal Volume 400.0 Blood Gas PEEP or CPAP 5.0 Test 06/18/24 04:20 06/18/24 01:21 06/17/24 21:37 06/17/24 21:06 Range/Units White Blood Count 5.8 # 4.4-10.8 10^3/uL Red Blood Count 4.43 L 4.5-5.90 10^6/uL Hemoglobin 13.8 13.5-17.5 g/dL Hematocrit 41.5 41.0-53.0 % Mean Corpuscular Volume 93.7 80.0-100.0 fL Mean Corpuscular Hemoglobin 31.1 28.0-32.0 pg Mean Corpuscular Hemoglobin Concent 33.2 32.0-36.0 g/dL Red Cell Distribution Width 15.9 H 11.8-14.3 % Platelet Count 71 L 140-450 10^3/uL Mean Platelet Volume 9.6 6.9-10.8 fL Neutrophils (%) (Auto) 87.6 H 37.0-80.0 % Lymphocytes (%) (Auto) 4.9 L 10.0-50.0 % Monocytes (%) (Auto) 7.3 0.0-12.0 % Eosinophils (%) (Auto) 0.0 0.0-7.0 % Basophils (%) (Auto) 0.2 0.0-2.0 % Neutrophils # (Auto) 5.1 1.6-8.6 10 ^3/uL Lymphocytes # (Auto) 0.3 L 0.4-5.4 10 ^3/uL Monocytes # (Auto) 0.4 0-1.3 10 ^3/uL Eosinophils # (Auto) 0 0-0.8 10 ^3/uL Basophils # (Auto) 0 0-0.2 10 ^3/uL Nucleated Red Blood Cells 0.2 % Sodium Level 159 H 136-145 mmol/L Potassium Level 3.3 L 3.5-5.1 mmol/L Chloride Level 115 H 98-107 mmol/L Carbon Dioxide Level 33 H 20-31 mmol/L Anion Gap 11 5-15 Blood Urea Nitrogen 73 H 9-23 mg/dL Creatinine 2.06 H 0.700-1.30 mg/dL Glomerular Filtration Rate Calc 32 >90 mL/min BUN/Creatinine Ratio 35.4 H 10.0-20.0 Serum Glucose 87 74-106 mg/dL Calcium Level 8.4 L 8.7-10.4 mg/dL Magnesium Level 2.9 H 1.6-2.6 mg/dL Total Bilirubin 2.6 H 0.2-1.0 mg/dL Aspartate Amino Transferase (AST) 66 H 13-40 U/L Alanine Aminotransferase (ALT) 50 H 7-40 U/L Alkaline Phosphatase 73 46-116 U/L Total Protein 4.6 L 5.7-8.2 g/dL Albumin 2.8 L 3.2-4.8 g/dL POC Glucose 101 97 146 H 70-106 mg/dl Test 06/17/24 20:48 06/17/24 16:41 06/17/24 12:52 06/17/24 12:20 Range/Units POC Glucose 43 *L 83 184 H 48 *L 70-106 mg/dl Test 06/17/24 12:19 06/17/24 12:10 06/17/24 07:59 06/17/24 07:54 Range/Units POC Glucose 43 *L 68 L 111 H 70-106 mg/dl Blood Gas Specimen Type Arterial Blood Gas Sample Site Right radial Blood Gas Patient Temperature 37.0 Arterial Blood Date Drawn [id number] Arterial Blood pH 7.450 7.350-7.450 Arterial Blood Partial Pressure CO2 48.4 H 35.0-48.0 mmHg Arterial Blood Partial Pressure O2 67.6 L 83.0-108.0 mmHg Arterial Blood HCO3 32.9 H 21.0-28.0 mmol/L Arterial Blood Oxygen Saturation 93.0 L 94.0-98.0 % Arterial Blood Base Excess 7.6 H -2.0-3.0 mmol/L Arterial Blood Oxyhemoglobin 92.3 L 94.0-98.0 % Arterial Blood Carboxyhemoglobin 0.3 L 0.5-1.5 % Arterial Blood Methemoglobin 0.4 0.0-1.5 % Jun Test Modified Blood Gas Total Hemoglobin 13.70 13.5-17.5 g/dL Blood Gas Modality Vent - ac Blood Gas Spontaneous Rate 18 FiO2 % 40.0 Blood Gas Tidal Volume 400.0 Blood Gas PEEP or CPAP 5.0 Test 06/17/24 06:41 06/17/24 06:23 06/17/24 03:38 06/16/24 21:54 Range/Units POC Glucose 149 H 41 *L 78 70-106 mg/dl White Blood Count 8.9 4.4-10.8 10^3/uL Red Blood Count 4.64 4.5-5.90 10^6/uL Hemoglobin 14.3 13.5-17.5 g/dL Hematocrit 43.0 41.0-53.0 % Mean Corpuscular Volume 92.8 80.0-100.0 fL Mean Corpuscular Hemoglobin 30.8 28.0-32.0 pg Mean Corpuscular Hemoglobin Concent 33.1 32.0-36.0 g/dL Red Cell Distribution Width 15.3 H 11.8-14.3 % Platelet Count 77 L 140-450 10^3/uL Mean Platelet Volume 9.9 6.9-10.8 fL Neutrophils (%) (Auto) 90.3 H 37.0-80.0 % Lymphocytes (%) (Auto) 3.9 L 10.0-50.0 % Monocytes (%) (Auto) 5.6 0.0-12.0 % Eosinophils (%) (Auto) 0.0 0.0-7.0 % Basophils (%) (Auto) 0.2 0.0-2.0 % Neutrophils # (Auto) 8.0 1.6-8.6 10 ^3/uL Lymphocytes # (Auto) 0.3 L 0.4-5.4 10 ^3/uL Monocytes # (Auto) 0.5 0-1.3 10 ^3/uL Eosinophils # (Auto) 0 0-0.8 10 ^3/uL Basophils # (Auto) 0 0-0.2 10 ^3/uL Nucleated Red Blood Cells 0.1 % Sodium Level 155 H 136-145 mmol/L Potassium Level 3.8 3.5-5.1 mmol/L Chloride Level 110 H 98-107 mmol/L Carbon Dioxide Level 37 H 20-31 mmol/L Anion Gap 8 5-15 Blood Urea Nitrogen 73 #H 9-23 mg/dL Creatinine 1.97 H 0.700-1.30 mg/dL Glomerular Filtration Rate Calc 34 >90 mL/min BUN/Creatinine Ratio 37.1 H 10.0-20.0 Serum Glucose 67 L 74-106 mg/dL Calcium Level 8.7 8.7-10.4 mg/dL Total Bilirubin 2.2 H 0.2-1.0 mg/dL Aspartate Amino Transferase (AST) 69 H 13-40 U/L Alanine Aminotransferase (ALT) 52 H 7-40 U/L Alkaline Phosphatase 89 46-116 U/L Total Protein 4.8 L 5.7-8.2 g/dL Albumin 2.8 L 3.2-4.8 g/dL Test 06/16/24 18:05 06/16/24 17:33 06/16/24 17:26 06/16/24 12:43 Range/Units POC Glucose 72 69 L 72 81 70-106 mg/dl Test 06/16/24 10:11 06/16/24 07:22 06/16/24 05:55 06/16/24 03:33 Range/Units POC Glucose 116 H 137 H 70-106 mg/dl Blood Gas Specimen Type Arterial Blood Gas Sample Site Left radial Blood Gas Patient Temperature 37.0 Arterial Blood Date Drawn [id number] Arterial Blood pH 7.456 H 7.350-7.450 Arterial Blood Partial Pressure CO2 46.4 35.0-48.0 mmHg Arterial Blood Partial Pressure O2 85.7 83.0-108.0 mmHg Arterial Blood HCO3 32.0 H 21.0-28.0 mmol/L Arterial Blood Oxygen Saturation 96.1 94.0-98.0 % Arterial Blood Base Excess 7.0 H -2.0-3.0 mmol/L Arterial Blood Oxyhemoglobin 95.3 94.0-98.0 % Arterial Blood Carboxyhemoglobin 0.5 0.5-1.5 % Arterial Blood Methemoglobin 0.3 0.0-1.5 % Jun Test Modified Blood Gas Total Hemoglobin 14.50 13.5-17.5 g/dL Blood Gas Set Respiration Rate 18.0 Blood Gas Modality Vent - ac FiO2 % 40.0 Blood Gas Tidal Volume 400.0 Blood Gas PEEP or CPAP 5.0 Specimen Drawn By White Blood Count 11.6 H 4.4-10.8 10^3/uL Red Blood Count 4.38 L 4.5-5.90 10^6/uL Hemoglobin 13.7 13.5-17.5 g/dL Hematocrit 40.7 L 41.0-53.0 % Mean Corpuscular Volume 92.9 80.0-100.0 fL Mean Corpuscular Hemoglobin 31.4 28.0-32.0 pg Mean Corpuscular Hemoglobin Concent 33.8 32.0-36.0 g/dL Red Cell Distribution Width 14.7 H 11.8-14.3 % Platelet Count 72 L 140-450 10^3/uL Mean Platelet Volume 10.0 6.9-10.8 fL Neutrophils (%) (Auto) 94.1 H 37.0-80.0 % Lymphocytes (%) (Auto) 2.1 L 10.0-50.0 % Monocytes (%) (Auto) 3.6 0.0-12.0 % Eosinophils (%) (Auto) 0.1 0.0-7.0 % Basophils (%) (Auto) 0.1 0.0-2.0 % Neutrophils # (Auto) 10.9 H 1.6-8.6 10 ^3/uL Lymphocytes # (Auto) 0.2 L 0.4-5.4 10 ^3/uL Monocytes # (Auto) 0.4 0-1.3 10 ^3/uL Eosinophils # (Auto) 0 0-0.8 10 ^3/uL Basophils # (Auto) 0 0-0.2 10 ^3/uL Nucleated Red Blood Cells 0.1 % Sodium Level 152 #H 136-145 mmol/L Potassium Level 4.3 3.5-5.1 mmol/L Chloride Level 108 H 98-107 mmol/L Carbon Dioxide Level 37 H 20-31 mmol/L Anion Gap 7 5-15 Blood Urea Nitrogen 60 H 9-23 mg/dL Creatinine 1.46 H 0.700-1.30 mg/dL Glomerular Filtration Rate Calc 49 >90 mL/min BUN/Creatinine Ratio 41.1 H 10.0-20.0 Serum Glucose 165 H 74-106 mg/dL Calcium Level 9.2 8.7-10.4 mg/dL Test 06/15/24 22:02 06/15/24 16:57 06/15/24 11:24 06/15/24 10:06 Range/Units POC Glucose 177 H 220 H 235 H 243 H 70-106 mg/dl Test 06/15/24 06:26 06/15/24 06:19 06/15/24 03:15 06/14/24 21:22 Range/Units POC Glucose 207 H 228 H 70-106 mg/dl Blood Gas Specimen Type Arterial Blood Gas Sample Site Left radial Blood Gas Patient Temperature 37.0 Arterial Blood Date Drawn [id number] Arterial Blood pH 7.420 7.350-7.450 Arterial Blood Partial Pressure CO2 45.1 35.0-48.0 mmHg Arterial Blood Partial Pressure O2 76.2 L 83.0-108.0 mmHg Arterial Blood HCO3 28.6 H 21.0-28.0 mmol/L Arterial Blood Oxygen Saturation 93.8 L 94.0-98.0 % Arterial Blood Base Excess 3.5 H -2.0-3.0 mmol/L Arterial Blood Oxyhemoglobin 93.1 L 94.0-98.0 % Arterial Blood Carboxyhemoglobin 0.5 0.5-1.5 % Arterial Blood Methemoglobin 0.2 0.0-1.5 % Jun Test Modified Blood Gas Total Hemoglobin 14.00 13.5-17.5 g/dL Blood Gas Set Respiration Rate 18.0 Blood Gas Modality Vent - ac FiO2 % 40.0 Blood Gas Tidal Volume 400.0 Blood Gas PEEP or CPAP 5.0 White Blood Count 13.1 H 4.4-10.8 10^3/uL Red Blood Count 4.31 L 4.5-5.90 10^6/uL Hemoglobin 13.4 L 13.5-17.5 g/dL Hematocrit 39.8 L 41.0-53.0 % Mean Corpuscular Volume 92.3 80.0-100.0 fL Mean Corpuscular Hemoglobin 31.1 28.0-32.0 pg Mean Corpuscular Hemoglobin Concent 33.7 32.0-36.0 g/dL Red Cell Distribution Width 14.8 H 11.8-14.3 % Platelet Count 73 L 140-450 10^3/uL Mean Platelet Volume 10.6 6.9-10.8 fL Neutrophils (%) (Auto) 37.0-80.0 % Lymphocytes (%) (Auto) 10.0-50.0 % Monocytes (%) (Auto) 0.0-12.0 % Basophils (%) (Auto) 0.0-2.0 % Neutrophils # (Auto) 1.6-8.6 10 ^3/uL Lymphocytes # (Auto) 0.4-5.4 10 ^3/uL Monocytes # (Auto) 0-1.3 10 ^3/uL Differential Total Cells Counted 100.0 100 Neutrophils % (Manual) 91 H 37.0-80.0 Band Neutrophils % (Manual) 1 Lymphocytes % (Manual) 3 L 10.0-50.0 Monocytes % (Manual) 5 0-12 Eosinophils % (Manual) 0 0-7 Basophils % (Manual) 0 0.0-2.0 Metamyelocytes % (manual) 0 Myelocytes % (Manual) 0 Promyelocytes % (Manual) 0 Blast Cells % (Manual) 0 Reactive Lymphocytes 0 Platelet Estimate Decreased Sodium Level 147 #H 136-145 mmol/L Potassium Level 4.4 3.5-5.1 mmol/L Chloride Level 105 98-107 mmol/L Carbon Dioxide Level 35 #H 20-31 mmol/L Anion Gap 7 5-15 Blood Urea Nitrogen 62 #H 9-23 mg/dL Creatinine 1.49 H 0.700-1.30 mg/dL Glomerular Filtration Rate Calc 47 >90 mL/min BUN/Creatinine Ratio 41.6 H 10.0-20.0 Serum Glucose 238 H 74-106 mg/dL Calcium Level 9.0 8.7-10.4 mg/dL Test 06/14/24 17:44 06/14/24 12:12 06/14/24 09:45 06/14/24 07:37 Range/Units POC Glucose 243 H 285 H 269 H 70-106 mg/dl Blood Gas Specimen Type Arterial Blood Gas Sample Site Left radial Blood Gas Patient Temperature 37.0 Arterial Blood Date Drawn [id number] Arterial Blood pH 7.391 7.350-7.450 Arterial Blood Partial Pressure CO2 47.5 35.0-48.0 mmHg Arterial Blood Partial Pressure O2 71.3 L 83.0-108.0 mmHg Arterial Blood HCO3 28.2 H 21.0-28.0 mmol/L Arterial Blood Oxygen Saturation 91.5 L 94.0-98.0 % Arterial Blood Base Excess 2.5 -2.0-3.0 mmol/L Arterial Blood Oxyhemoglobin 91.0 L 94.0-98.0 % Arterial Blood Carboxyhemoglobin 0.5 0.5-1.5 % Arterial Blood Methemoglobin 0.0 0.0-1.5 % Jun Test Modified Blood Gas Total Hemoglobin 13.60 13.5-17.5 g/dL Blood Gas Set Respiration Rate 18.0 Blood Gas Modality Vent - ac FiO2 % 40.0 Blood Gas Tidal Volume 400.0 Blood Gas PEEP or CPAP 5.0 Test 06/14/24 07:31 06/14/24 04:59 06/13/24 22:15 06/13/24 21:06 Range/Units POC Glucose 239 H 225 H 70-106 mg/dl Creatinine 1.87 H 0.700-1.30 mg/dL Glomerular Filtration Rate Calc 36 >90 mL/min Vancomycin Level Trough 15.1 H 5-10 ug/mL White Blood Count 14.4 #H 4.4-10.8 10^3/uL Red Blood Count 4.17 L 4.5-5.90 10^6/uL Hemoglobin 12.6 L 13.5-17.5 g/dL Hematocrit 38.0 L 41.0-53.0 % Mean Corpuscular Volume 91.2 80.0-100.0 fL Mean Corpuscular Hemoglobin 30.3 28.0-32.0 pg Mean Corpuscular Hemoglobin Concent 33.2 32.0-36.0 g/dL Red Cell Distribution Width 14.7 H 11.8-14.3 % Platelet Count 94 #L 140-450 10^3/uL Mean Platelet Volume 10.3 6.9-10.8 fL Neutrophils (%) (Auto) 92.9 H 37.0-80.0 % Lymphocytes (%) (Auto) 2.9 L 10.0-50.0 % Monocytes (%) (Auto) 2.9 0.0-12.0 % Eosinophils (%) (Auto) 0.0 0.0-7.0 % Basophils (%) (Auto) 1.3 0.0-2.0 % Neutrophils # (Auto) 13.4 H 1.6-8.6 10 ^3/uL Lymphocytes # (Auto) 0.4 0.4-5.4 10 ^3/uL Monocytes # (Auto) 0.4 0-1.3 10 ^3/uL Eosinophils # (Auto) 0 0-0.8 10 ^3/uL Basophils # (Auto) 0.2 0-0.2 10 ^3/uL Nucleated Red Blood Cells 0.2 % Test 06/13/24 17:45 06/13/24 11:55 06/13/24 06:49 06/13/24 06:46 Range/Units POC Glucose 267 H 254 H 234 H 70-106 mg/dl Blood Gas Specimen Type Arterial Blood Gas Sample Site Right radial Blood Gas Patient Temperature 37.0 Arterial Blood Date Drawn [id number] Arterial Blood pH 7.442 7.350-7.450 Arterial Blood Partial Pressure CO2 47.2 35.0-48.0 mmHg Arterial Blood Partial Pressure O2 66.2 L 83.0-108.0 mmHg Arterial Blood HCO3 31.5 H 21.0-28.0 mmol/L Arterial Blood Oxygen Saturation 91.4 L 94.0-98.0 % Arterial Blood Base Excess 6.3 H -2.0-3.0 mmol/L Arterial Blood Oxyhemoglobin 90.3 L 94.0-98.0 % Arterial Blood Carboxyhemoglobin 0.4 L 0.5-1.5 % Arterial Blood Methemoglobin 0.8 0.0-1.5 % Jun Test Modified Blood Gas Total Hemoglobin 14.00 13.5-17.5 g/dL Blood Gas Set Respiration Rate 18.0 Blood Gas Modality Vent - ac FiO2 % 30.0 Blood Gas Tidal Volume 400.0 Blood Gas PEEP or CPAP 5.0 Test 06/13/24 05:49 06/12/24 22:14 06/12/24 17:44 06/12/24 16:52 Range/Units White Blood Count 7.3 4.4-10.8 10^3/uL Red Blood Count 3.91 L 4.5-5.90 10^6/uL Hemoglobin 12.4 L 13.5-17.5 g/dL Hematocrit 35.8 L 41.0-53.0 % Mean Corpuscular Volume 91.6 80.0-100.0 fL Mean Corpuscular Hemoglobin 31.8 28.0-32.0 pg Mean Corpuscular Hemoglobin Concent 34.7 32.0-36.0 g/dL Red Cell Distribution Width 14.3 11.8-14.3 % Platelet Count 36 #L 140-450 10^3/uL Mean Platelet Volume 9.2 6.9-10.8 fL Neutrophils (%) (Auto) 92.6 H 37.0-80.0 % Lymphocytes (%) (Auto) 4.0 L 10.0-50.0 % Monocytes (%) (Auto) 3.0 0.0-12.0 % Eosinophils (%) (Auto) 0.0 0.0-7.0 % Basophils (%) (Auto) 0.4 0.0-2.0 % Neutrophils # (Auto) 6.7 1.6-8.6 10 ^3/uL Lymphocytes # (Auto) 0.3 L 0.4-5.4 10 ^3/uL Monocytes # (Auto) 0.2 0-1.3 10 ^3/uL Eosinophils # (Auto) 0 0-0.8 10 ^3/uL Basophils # (Auto) 0 0-0.2 10 ^3/uL Nucleated Red Blood Cells 0.1 % Platelet Estimate Decreased Sodium Level 142 136-145 mmol/L Potassium Level 4.5 3.5-5.1 mmol/L Chloride Level 104 98-107 mmol/L Carbon Dioxide Level 25 20-31 mmol/L Anion Gap 13 5-15 Blood Urea Nitrogen 45 H 9-23 mg/dL Creatinine 2.07 H 0.700-1.30 mg/dL Glomerular Filtration Rate Calc 32 >90 mL/min BUN/Creatinine Ratio 21.7 H 10.0-20.0 Serum Glucose 271 H 74-106 mg/dL Calcium Level 8.7 8.7-10.4 mg/dL Random Vancomycin Level 22.0 H 5-10 ug/mL POC Glucose 278 H 261 H 70-106 mg/dl Blood Gas Specimen Type Arterial Blood Gas Sample Site Right radial Blood Gas Patient Temperature 37.0 Arterial Blood Date Drawn [id number] Arterial Blood pH 7.442 7.350-7.450 Arterial Blood Partial Pressure CO2 37.4 35.0-48.0 mmHg Arterial Blood Partial Pressure O2 77.8 L 83.0-108.0 mmHg Arterial Blood HCO3 24.9 21.0-28.0 mmol/L Arterial Blood Oxygen Saturation 94.1 94.0-98.0 % Arterial Blood Base Excess 1.0 -2.0-3.0 mmol/L Arterial Blood Oxyhemoglobin 93.2 L 94.0-98.0 % Arterial Blood Carboxyhemoglobin 0.2 L 0.5-1.5 % Arterial Blood Methemoglobin 0.8 0.0-1.5 % Jun Test Modified Blood Gas Total Hemoglobin 12.40 L 13.5-17.5 g/dL Blood Gas Set Respiration Rate 18.0 Blood Gas Modality Vent - ac FiO2 % 30.0 Blood Gas Tidal Volume 400.0 Blood Gas PEEP or CPAP 5.0 Test 06/12/24 15:17 06/12/24 05:50 06/12/24 05:15 06/11/24 15:50 Range/Units Influenza Type A Antigen Negative Negative Influenza Type B Antigen Negative Negative SARS-CoV-2 Antigen (Rapid) Negative NEGATIVE Blood Gas Specimen Type Arterial Arterial Blood Gas Sample Site Right radial Right radial Blood Gas Patient Temperature 37.0 37.0 Arterial Blood Date Drawn [id number] Arterial Blood pH 7.556 *H 7.500 H 7.350-7.450 Arterial Blood Partial Pressure CO2 31.8 L 42.3 35.0-48.0 mmHg Arterial Blood Partial Pressure O2 70.9 L 274.3 H 83.0-108.0 mmHg Arterial Blood HCO3 27.6 32.2 H 21.0-28.0 mmol/L Arterial Blood Oxygen Saturation 94.6 99.4 H 94.0-98.0 % Arterial Blood Base Excess 5.6 H 8.2 H -2.0-3.0 mmol/L Arterial Blood Oxyhemoglobin 93.3 L 98.3 H 94.0-98.0 % Arterial Blood Carboxyhemoglobin 0.7 0.5 0.5-1.5 % Arterial Blood Methemoglobin 0.7 0.6 0.0-1.5 % Jun Test Modified Modified Blood Gas Total Hemoglobin 12.70 L 12.90 L 13.5-17.5 g/dL Blood Gas Set Respiration Rate 18.0 18.0 Blood Gas Modality Vent - ac Vent - ac Blood Gas Spontaneous Rate 18 FiO2 % 30.0 100.0 Blood Gas Tidal Volume 500.0 500.0 Blood Gas PEEP or CPAP 5.0 5.0 Blood Gas Critical Value Read Back Yes Blood Gas Notified Whom lisset Claire md Blood Gas Notified Time [id number] Blood Gas Notified By Nasir henry rrt White Blood Count 8.8 # 4.4-10.8 10^3/uL Red Blood Count 3.80 L 4.5-5.90 10^6/uL Hemoglobin 11.8 L 13.5-17.5 g/dL Hematocrit 34.6 #L 41.0-53.0 % Mean Corpuscular Volume 91.2 # 80.0-100.0 fL Mean Corpuscular Hemoglobin 31.0 28.0-32.0 pg Mean Corpuscular Hemoglobin Concent 34.0 32.0-36.0 g/dL Red Cell Distribution Width 13.9 11.8-14.3 % Platelet Count 101 L 140-450 10^3/uL Mean Platelet Volume 10.1 6.9-10.8 fL Neutrophils (%) (Auto) 91.0 H 37.0-80.0 % Lymphocytes (%) (Auto) 5.5 L 10.0-50.0 % Monocytes (%) (Auto) 3.0 0.0-12.0 % Eosinophils (%) (Auto) 0.0 0.0-7.0 % Basophils (%) (Auto) 0.5 0.0-2.0 % Neutrophils # (Auto) 8.0 1.6-8.6 10 ^3/uL Lymphocytes # (Auto) 0.5 0.4-5.4 10 ^3/uL Monocytes # (Auto) 0.3 0-1.3 10 ^3/uL Eosinophils # (Auto) 0 0-0.8 10 ^3/uL Basophils # (Auto) 0 0-0.2 10 ^3/uL Nucleated Red Blood Cells 0.1 % Sodium Level 143 136-145 mmol/L Potassium Level 3.3 L 3.5-5.1 mmol/L Chloride Level 100 98-107 mmol/L Carbon Dioxide Level 30 20-31 mmol/L Anion Gap 13 5-15 Blood Urea Nitrogen 39 H 9-23 mg/dL Creatinine 1.29 0.700-1.30 mg/dL Glomerular Filtration Rate Calc 56 >90 mL/min BUN/Creatinine Ratio 30.2 H 10.0-20.0 Serum Glucose 243 H 74-106 mg/dL Calcium Level 8.6 L 8.7-10.4 mg/dL Total Bilirubin 1.7 H 0.2-1.0 mg/dL Aspartate Amino Transferase (AST) 40 13-40 U/L Alanine Aminotransferase (ALT) 40 7-40 U/L Alkaline Phosphatase 69 46-116 U/L Total Protein 4.4 L 5.7-8.2 g/dL Albumin 2.7 L 3.2-4.8 g/dL Test 06/11/24 14:05 06/11/24 11:42 06/11/24 11:24 06/11/24 11:20 Range/Units B-Type Natriuretic Peptide 581.15 0-100 pg/mL White Blood Count 12.2 #H 4.4-10.8 10^3/uL Red Blood Count 4.20 L 4.5-5.90 10^6/uL Hemoglobin 13.1 L 13.5-17.5 g/dL Hematocrit 40.3 L 41.0-53.0 % Mean Corpuscular Volume 95.9 # 80.0-100.0 fL Mean Corpuscular Hemoglobin 31.2 28.0-32.0 pg Mean Corpuscular Hemoglobin Concent 32.5 32.0-36.0 g/dL Red Cell Distribution Width 14.6 H 11.8-14.3 % Platelet Count 105 L 140-450 10^3/uL Mean Platelet Volume 9.9 6.9-10.8 fL Neutrophils (%) (Auto) 93.1 H 37.0-80.0 % Lymphocytes (%) (Auto) 2.2 L 10.0-50.0 % Monocytes (%) (Auto) 4.6 0.0-12.0 % Eosinophils (%) (Auto) 0.0 0.0-7.0 % Basophils (%) (Auto) 0.1 0.0-2.0 % Neutrophils # (Auto) 11.4 H 1.6-8.6 10 ^3/uL Lymphocytes # (Auto) 0.3 L 0.4-5.4 10 ^3/uL Monocytes # (Auto) 0.6 0-1.3 10 ^3/uL Eosinophils # (Auto) 0 0-0.8 10 ^3/uL Basophils # (Auto) 0 0-0.2 10 ^3/uL Nucleated Red Blood Cells 0.0 % Sodium Level 142 136-145 mmol/L Potassium Level 3.8 3.5-5.1 mmol/L Chloride Level 100 98-107 mmol/L Carbon Dioxide Level 36 H 20-31 mmol/L Anion Gap 6 5-15 Blood Urea Nitrogen 30 H 9-23 mg/dL Creatinine 1.01 0.700-1.30 mg/dL Glomerular Filtration Rate Calc 76 >90 mL/min BUN/Creatinine Ratio 29.7 H 10.0-20.0 Serum Glucose 166 H 74-106 mg/dL Calcium Level 8.5 L 8.7-10.4 mg/dL Troponin I High Sensitivity 158 *H </=54 ng/L Urine Color Light-yellow Yellow Urine Clarity Clear Clear Urine pH 6.0 5.0-9.0 Urine Specific [place] 1.011 1.001-1.035 Urine Protein Negative Negative Urine Ketones Negative Negative Urine Blood 1+ H Negative /uL Urine Nitrite Negative Negative Urine Bilirubin Negative Negative Urine Urobilinogen Normal Negative mg/dL Urine Leukocyte Esterase Negative Negative /uL Urine RBC 1 0 - 3 /hpf Urine Microscopic WBC < 1 0-3 /HPF Urine Squamous Epithelial Cells None seen <5 /hpf Urine Bacteria None seen None Seen /hpf Urine Hyaline Casts Few 0 - 2 /lpf Urine Glucose 1+ H Normal mg/dL Blood Gas Specimen Type Arterial Blood Gas Sample Site Right radial Blood Gas Patient Temperature 37.0 Arterial Blood Date Drawn [id number] Arterial Blood pH 7.441 7.350-7.450 Arterial Blood Partial Pressure CO2 48.8 H 35.0-48.0 mmHg Arterial Blood Partial Pressure O2 57.3 L 83.0-108.0 mmHg Arterial Blood HCO3 32.5 H 21.0-28.0 mmol/L Arterial Blood Oxygen Saturation 88.5 L 94.0-98.0 % Arterial Blood Base Excess 7.1 H -2.0-3.0 mmol/L Arterial Blood Oxyhemoglobin 87.5 L 94.0-98.0 % Arterial Blood Carboxyhemoglobin 0.8 0.5-1.5 % Arterial Blood Methemoglobin 0.3 0.0-1.5 % Jun Test Yes Blood Gas Total Hemoglobin 13.20 L 13.5-17.5 g/dL Blood Gas Liter Flow 6.00 Blood Gas Modality Nasal cannula FiO2 % 44.0 Microbiology Date/Time Source Procedure Growth Status 06/14/24 06:00 Nose MRSA Screen - Final Complete 06/12/24 11:30 Blood Blood Culture - Final NO GROWTH AFTER 5 DAYS OF INCUBATION. Complete 06/11/24 18:38 Bronchial Brushings Gram Stain - Final Complete 06/11/24 18:38 Respiratory Culture - Final Staphylococcus aureus Complete Assessment Acute kidney injury superimposed Chronic Kidney Disease secondary hemodynamic mediated Acute respiratory failure, patient intubated on ventilator Congestive heart failure, ejection fraction 45% COPD exacerbation Diabetes mellitus type 2 Hyperglycemia Hypernatremia due to insensible water loss Thrombocytopenia Recommendations Closely monitor fluid and electrolytes Avoid nephrotoxic medications Aguero catheter Strict I&Os Check urine electrolytes and urine protein excretion Check kidney ultrasound IV fluid D5 half at 150 cc/hour Free water 200 cc down NG tube q.6 hours Insulin sliding scale Match I&Os We will continue to follow Patient seen and examined by myself in ICU. I discussed my plan of care with the primary nurse at the bedside I would like to thank Nolan for the consult, will follow Plan discussed with: Other (Nurse) LUTHER BHAT MD Jun 19, 2024 09:55
[2024-06-19] MEDS ORDERED: FLUCONAZOLE 200MG/100ML 100 ML IV SCH (10:00)
[2024-06-19] MEDS ORDERED: HYDROCORTISONE SOD SUCC 100 MG/2ML INJ VIAL IV SCH (10:00)
--- NOTE | 2024-06-19 10:07 | DVH ---
RENAL ULTRASOUND CLINICAL HISTORY: mary TECHNIQUE: Multiple ultrasound images of the kidneys and bladder were obtained. COMPARISON: None FINDINGS: The right kidney measures 9.5 cm in length. The left kidney measures 11.1 cm. The kidneys appear mil dly echogenic which may relate to medical renal disease there is no evidence of nephrolithiasis or hy dronephrosis. the kidneys appear mildly echogenic which may relate to medical renal disease. There is no evidence of nephrolithiasis or hydronephrosis. There is a Aguero catheter in the bladder which is decompressed limiting evaluation. There is Aguero ca theter in the bladder which is decompressed limiting evaluation. IMPRESSION: 1. Mildly echogenic renal parenchyma may be related to medical renal disease. There is no evidence of nephrolithiasis or hydronephrosis. HS:Y
[2024-06-19] MEDS ORDERED: DOXYCYCLINE 100MG/100ML 100 ML IV SCH (10:15)
[2024-06-19] MEDS: PANTOPRAZOLE 40 MG/10 ML VIAL INJ IV SCH (10:31)
--- NOTE | 2024-06-19 10:35 | DVHPN2 ---
Progress Note - Dictate Date Seen: Jun 19, 2024 Medical Necessity Reason Pt with a Central, PICC or Fol: Yes The following are medically ne: Garcia Catheter Reason for garcia catheter: Strict I&O Subjective Mr. Jeffry Cummins is a 79 years old right-handed gentleman with a history of hypertension, coronary artery disease, heart attack, COPD, he came to the [facility] [place] on 06/11/2024 with a chief company of shortness of breath for 2 hours. The patient was intubated on 06/11/2024 in the emergency room. I saw him on 05/29/2024 for altered mental status He had seizure-like activity in the ER on 06/13/2024 I have seen and examined the patient, I have discussed with his nurse, daughter, he is intubated, sedated, eyes closed, he is responsive to painful stimuli On pressor drip for unstable vitals Propofol 10 mcg/minutes, fentanyl 50 mcg/hour, Levo 11 mcg/minute, Neosyn 140mcg/min Urinalysis, 06/12/2024: WBC: 1, urine leukocyte esterase: Negative ABG, 06/13/2024, pCO2: 66.3, HCO3: 31.5 WBC/HB/PLT/MCV, 05/25/2024: 17.9/14.4/211/93.1, 05/29/2024: 10.8/13.9/190/91.6, 06/03/2024: 21.3/316/178/90.7, 06/12/2024: 0.8/11.8/101/91.2, 06/13/2024: 7.3/12.4/36/91.6 BUN/CR, 05/29/2024: 28/0.78, 06/28/2024, 39/1.29 HGB A1c, 05/23/24: 6.5 TBI/AST/ALT/AP, 06/12/2024: 1.7/40/40/69 TG/HDL/LDL/HDL, 05/23/2024: 118/112/48/49 TSH, 05/23/2024: 0.71 EEG, 06/13/2024: Mildly abnormal Chest X ray, 06/11/2024: ETT tip is at the karoline. Retraction by [address] head, 05/20/2024: 1. Global brain atrophy and chronic schema changes without evidence of acute intracranial process. 2. Punctate intra-axial and extra-axial calcifications may be due to remote history of TORCH infection. 3. Mild bilateral maxillary and ethmoid sinus disease. MR head, 06/13/2024: There is no acute intracranial process. vital signs Vital Sign Date Time Temp Pulse Resp B/P (MAP) Pulse Ox O2 Delivery O2 Flow Rate FiO2 06/19/24 10:26 74/45 06/19/24 08:00 30 06/19/24 08:00 18 97 Mechanical Ventilator+ 06/19/24 08:00 59 06/19/24 06:30 98.4 209.1 Total Intake and Output 06/18/24 06/18/24 06/19/24 15:00 23:00 07:00 Intake Total 2274.770 ml 1623.178 ml 2183.803 ml Output Total 675 ml 400 ml Balance 2274.770 ml 948.178 ml 1783.803 ml medications Current Medications Medications Dose Ordered Sig/Mindy Route Start Time Stop Time Status Last Admin Dose Admin Albuterol 2.5 mg Q4HPRN PRN NEB 06/11/24 13:45 06/17/24 06:34 2.5 MG Ipratropium [place] 0.5 mg Q4HPRN PRN NEB 06/11/24 13:45 06/17/24 06:34 0.5 MG Sodium Chloride 10 ml Q8HR IV 06/11/24 14:00 06/19/24 05:45 10 ML Ondansetron HCl 4 mg Q4HP PRN IV 06/11/24 13:45 Docusate Sodium 100 mg BIDPRN PRN PO 06/11/24 13:45 Acetaminophen 650 mg Q6HP PRN PO 06/11/24 13:45 Nitroglycerin 0.4 mg Q5MINP PRN SL 06/11/24 16:00 Morphine Sulfate 2 mg Q30M PRN IV 06/11/24 16:00 Fentanyl Citrate 250 ml @ 2.5 mls/hr Q24H IV 06/11/24 16:15 06/18/24 12:19 2.5 MLS/HR Atorvastatin Calcium 40 mg HS PO 06/12/24 22:00 06/18/24 21:34 40 MG Enteral Nutritional Formula 1,000 ml 30ML/HR GT 06/12/24 13:30 Diagnostic Test (Pha) 1 strip ACHS 06/12/24 17:00 06/19/24 06:30 1 STRIP Insulin Human Regular ACHS SC 06/12/24 17:00 06/19/24 06:32 4 UNITS Dextrose 50 ml UD PRN IV 06/12/24 13:30 06/18/24 06:37 50 ML Midazolam HCl 50 ml @ 1 mls/hr Q24H IV 06/13/24 06:45 06/15/24 08:12 1 MLS/HR Propofol 100 ml @ 2.727 mls/ hr Q24H IV 06/13/24 08:15 06/18/24 21:00 5.454 MLS/HR Lorazepam 1 mg Q5MINP PRN IV 06/13/24 10:45 Aspirin 81 mg DAILY PO 06/14/24 10:00 06/16/24 11:39 81 MG Norepinephrine Bitartrate 250 ml @ 1.875 mls/ hr Q24H IV 06/14/24 15:45 06/19/24 07:51 20.625 MLS/HR Hydralazine HCl 10 mg Q4HP PRN IV 06/15/24 11:15 06/15/24 11:22 10 MG Nafcillin Sodium 2 gm/Sodium Chloride 100 ml @ 100 mls/hr Q4H IV 06/15/24 12:00 06/19/24 09:13 100 MLS/HR Dexmedetomidine HCl 400 mcg/ Dextrose 100 ml @ 1.136 mls/ hr Q24H IV 06/16/24 12:15 06/16/24 12:28 1.136 MLS/HR Purified Water 200 ml Q4HR GT 06/18/24 10:00 06/19/24 05:45 200 ML Pantoprazole Sodium 40 mg DAILY IV 06/19/24 10:00 Phenylephrine HCl 250 ml @ 30 mls/hr Q8H20M IV 06/19/24 02:45 06/19/24 10:26 105 MLS/HR Insulin Glargine 10 units DAILY@1000 SC 06/19/24 10:00 UNV Lactulose 30 ml BID GT 06/19/24 10:00 UNV Dextrose 1,000 ml @ 150 mls/hr Q6H40M IV 06/19/24 09:45 UNV Fluconazole 100 ml @ 100 mls/hr 10,11 IV 06/19/24 10:00 UNV Cefepime HCl 50 ml @ 12.5 mls/hr Q8HR IV 06/19/24 12:00 UNV Doxycycline Hyclate 100 ml @ 50 mls/hr Q12H IV 06/19/24 10:15 UNV Hydrocortisone Sodium Succinate 100 mg Q12HR IV 06/19/24 10:00 UNV objective The patient is well-nourished and well-developed with no distress. The patient is intubated MENTAL STATUS: Subjective CRANIAL NERVES: Pupils are equal, round and nonreactive, very small. There are corneal reflexes and doll's eyes phenomenon. No signs of facial weakness. There are weak gagging or coughing reflexes SENSATION: Responses to pain stimuli. MOTOR: Normal tone in the upper and lower extremity. Normal muscle bulk. No fasciculations. Moves the hands minimally REFLEXES: Deep tendon reflexes are symmetrical. No pathological reflexes. CEREBELLAR/COORDINATION: Deferred GAIT/STATION: deferred. laboratory and microbiology Laboratory Tests 06/19/24 03:30 Test 06/19/24 03:30 Range/Units Serum Glucose 282 H 74-106 mg/dL Problem List Altered mental status/Coma Hypoxic encephalopathy Metabolic encephalopathy Toxic encephalopathy ? Status epileptics ? Vegetative status New onset seizure activity ? Acute symptomatic seizure ? 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 Although this document has been carefully reviewed, there may still be some phonetic and typographical errors. These areas are purely typographical due to imperfections of the software programs, and do not reflect any compromise in the patient's medical carecercosis Acute on chronic respiratory failure Pneumonia Prognosis guarded Dietary Evaluation Review Comments: 1. Pt's current feeding Glucerna 30ml/hr (43g pro, 864 kcal) x 24 hr will support 79% Pro and 87% kcal, if kidney failure is considered. 2. Pt's protein requirement is 134g if his kidney function improves while still on vent. 3. CCHO-60 diet if no renal failure when Pt is off vent and passing speech eval. 4. CCHO-60 with renal specific 50 gprotein restriction when pt is off vent passing speech eval and has KD. 5. CCHO-60 Renal Standard if pt is off vent with renal failure and on dialysis and pass speech eval. Expected Outcomes/Goals: controlled glucose level, minimized nephrotic syndrome. gradual wt loss. Plan discussed with: Other Critical Care Time(min): 30 CALEB NORMAN MD Jun 19, 2024 10:35
[2024-06-19 11:30] LABS: Anion Gap 10 (5-15); Carbon Dioxide 30 mmol/L (20-31); Potassium 4.1 mmol/L (3.5-5.1)
[2024-06-19 11:37] LABS: BUN/Creatinine Ratio 32.9 (10.0-20.0)
[2024-06-19 11:42] LABS: Blood Urea Nitrogen 72 mg/dL (9-23); Calcium 7.5 mg/dL (8.7-10.4); Chloride 112 mmol/L (98-107); Glucose 305 mg/dL (74-106); Sodium 152 mmol/L (136-145)
[2024-06-19 11:59] LABS: Magnesium 2.7 mg/dL (1.6-2.6); Phosphorus 5.5 mg/dL (2.4-5.1)
[2024-06-19 12:05] LABS: Hepatitis B Surface Antigen Negative (Negative); Hepatitis C Antibody Negative (Negative)
[2024-06-19] MEDS: HYDROCORTISONE SOD SUCC 100 MG/2ML INJ VIAL IV SCH (12:24)
[2024-06-19] MEDS: LACTULOSE 20Gm/30ML SOLN GT SCH (12:24)
[2024-06-19] MEDS: INSULIN LANTUS (GLARGINE) 1 /0.01ml (100units/ml) SC SCH (12:27)
[2024-06-19] MEDS: CEFEPIME 1GM/ 50ML 50 ML IV SCH (14:09)
[2024-06-19] MEDS: FLUCONAZOLE 200MG/100ML 100 ML IV SCH (14:09)
[2024-06-19] MEDS: DOXYCYCLINE 100MG/100ML 100 ML IV SCH (15:15)
[2024-06-19 18:40] LABS: Urine Blood 3+ /uL (Negative); Urine Budding Yeast FEW /hpf (None Seen); Urine Clarity Turbid (Clear); Urine Color Light-Orange (Yellow); Urine Hyaline Cast FEW /lpf (0 - 2); Urine Protein, UAD 1+ (Negative); Urine Specific Gravity 1.016 (1.001-1.035); Urine Sperm PRESENT /hpf (None Seen); Urine Squamous Epithelial Cell FEW /hpf (<5); Urine Urobilinogen 2 mg/dL (Negative); Urine WBC 231 /HPF (0-3)
[2024-06-19 18:48] LABS: INR 1.11 (0.9-1.15); Partial Thromboplastin Time 42.4 SEC (24.5-34.5); Prothrombin Time 11.6 sec (9.3-11.8)
[2024-06-19 18:49] LABS: Urine Bacteria NONE SEEN /hpf (None Seen)
--- NOTE | 2024-06-19 21:11 | DVHPN2 ---
Progress Note - Dictate Date Seen: Jun 19, 2024 Medical Necessity Reason Pt with a Central, PICC or Fol: Yes The following are medically ne: Garcia Catheter Reason for garcia catheter: Strict I&O Subjective Patient seen and examined at bedside. intubated on mechanical ventilator. Overnight events reviewed. vital signs Vital Sign Date Time Temp Pulse Resp B/P (MAP) Pulse Ox O2 Delivery O2 Flow Rate FiO2 06/19/24 21:07 95/69 06/19/24 20:45 97.7 85 19 99 207.9 06/19/24 20:04 30 06/19/24 20:00 Mechanical Ventilator+ Total Intake and Output 06/18/24 06/18/24 06/19/24 15:00 23:00 07:00 Intake Total 2274.770 ml 1623.178 ml 2397.378 ml Output Total 675 ml 400 ml Balance 2274.770 ml 948.178 ml 1997.378 ml medications Current Medications Medications Dose Ordered Sig/Mindy Route Start Time Stop Time Status Last Admin Dose Admin Albuterol 2.5 mg Q4HPRN PRN NEB 06/11/24 13:45 06/19/24 18:21 2.5 MG Ipratropium [place] 0.5 mg Q4HPRN PRN NEB 06/11/24 13:45 06/19/24 18:21 0.5 MG Sodium Chloride 10 ml Q8HR IV 06/11/24 14:00 06/19/24 14:09 10 ML Ondansetron HCl 4 mg Q4HP PRN IV 06/11/24 13:45 Docusate Sodium 100 mg BIDPRN PRN PO 06/11/24 13:45 Acetaminophen 650 mg Q6HP PRN PO 06/11/24 13:45 Nitroglycerin 0.4 mg Q5MINP PRN SL 06/11/24 16:00 Morphine Sulfate 2 mg Q30M PRN IV 06/11/24 16:00 Fentanyl Citrate 250 ml @ 2.5 mls/hr Q24H IV 06/11/24 16:15 06/19/24 21:07 20 MLS/HR Atorvastatin Calcium 40 mg HS PO 06/12/24 22:00 06/18/24 21:34 40 MG Enteral Nutritional Formula 1,000 ml 30ML/HR GT 06/12/24 13:30 Diagnostic Test (Pha) 1 strip ACHS 06/12/24 17:00 06/19/24 18:12 1 STRIP Insulin Human Regular ACHS SC 06/12/24 17:00 06/19/24 18:14 8 UNITS Dextrose 50 ml UD PRN IV 06/12/24 13:30 06/18/24 06:37 50 ML Midazolam HCl 50 ml @ 1 mls/hr Q24H IV 06/13/24 06:45 06/15/24 08:12 1 MLS/HR Propofol 100 ml @ 2.727 mls/ hr Q24H IV 06/13/24 08:15 06/18/24 21:00 5.454 MLS/HR Lorazepam 1 mg Q5MINP PRN IV 06/13/24 10:45 Aspirin 81 mg DAILY PO 06/14/24 10:00 06/19/24 10:32 81 MG Norepinephrine Bitartrate 250 ml @ 1.875 mls/ hr Q24H IV 06/14/24 15:45 06/19/24 18:11 18.75 MLS/HR Hydralazine HCl 10 mg Q4HP PRN IV 06/15/24 11:15 06/15/24 11:22 10 MG Nafcillin Sodium 2 gm/Sodium Chloride 100 ml @ 100 mls/hr Q4H IV 06/15/24 12:00 06/19/24 19:45 100 MLS/HR Dexmedetomidine HCl 400 mcg/ Dextrose 100 ml @ 1.136 mls/ hr Q24H IV 06/16/24 12:15 06/16/24 12:28 1.136 MLS/HR Purified Water 200 ml Q4HR GT 06/18/24 10:00 06/19/24 18:12 200 ML Pantoprazole Sodium 40 mg DAILY IV 06/19/24 10:00 06/19/24 10:31 40 MG Phenylephrine HCl 250 ml @ 30 mls/hr Q8H20M IV 06/19/24 02:45 06/19/24 10:26 105 MLS/HR Insulin Glargine 10 units DAILY@1000 SC 06/19/24 10:00 06/19/24 12:27 10 UNITS Lactulose 30 ml BID GT 06/19/24 10:00 06/19/24 12:24 30 ML Dextrose 1,000 ml @ 150 mls/hr Q6H40M IV 06/19/24 09:45 06/19/24 14:54 150 MLS/HR Cefepime HCl 50 ml @ 12.5 mls/hr Q12H IV 06/19/24 14:00 06/19/24 14:09 12.5 MLS/HR Hydrocortisone Sodium Succinate 100 mg Q12HR IV 06/19/24 10:00 06/19/24 12:24 100 MG Fluconazole 100 ml @ 100 mls/hr 1300,1400 IV 06/19/24 13:00 06/19/24 15:14 100 MLS/HR Doxycycline Hyclate 100 ml @ 50 mls/hr Q12H IV 06/19/24 14:00 06/19/24 15:15 50 MLS/HR objective Gen.: Patient lying in bed in medical ICU. Intubated on mechanical ventilator Head: Normocephalic, atraumatic. Eyes: PERRLA. Ears: Normal external anatomy. Throat: Endotracheal tube and orogastric tube in place. Neck: Supple, trachea midline. Chest: Transmitted breath sounds bilaterally. Decreased air entry bilaterally. No wheezing. Bibasilar crackles. Cardiovascular: Positive S1, positive S2. Regular rate and rhythm. Abdomen: Positive bowel sounds in all 4 quadrants. Soft, nontender, nondistended. : Garcia in place. Normal external genitalia. Rectal: Deferred. Skin: Warm, dry. Intact. Extremities: 2+ radial pulses bilaterally. No lower extremity edema. Neuro: Off sedation laboratory and microbiology Laboratory Tests 06/19/24 10:35 06/19/24 03:30 Test 06/19/24 10:35 Range/Units Serum Glucose 305 H 74-106 mg/dL Assessment/Plan Impression: Acute on chronic hypoxic respiratory failure On mechanical ventilator Acute exacerbation of COPD Obesity, BMI 34.3 Shock, hypovolemic versus sepsis Hemoptysis Elevated troponin Pulmonary vascular congestion Events: Remains on vent support Vent settings; respiratory rate of 18, tidal volume 400, PEEP of 5, FiO2 at 30%. ABG reviewed, compensated Chest x-ray reviewed, demonstrates pulmonary venous congestion. Renal ultrasound demonstrated no e/o nephrolithiasis or hydronephrosis On Levophed for hemodynamic support. Increased pressors requirements. Titrate to keep MAP above 65 mmHg/SBP above 90 mmHg Accu-Cheks q.6 hours Episodes of hypoglycemia - D5W at 95 ml/hr. Continue bronchodilators PRN Stop Solu-Medrol Start hydrocortisone 100 mg IVP q.8 hours Antibiotics - start doxycycline 100 mg q.12 hours and cefepime 1 g q.8 hours. Repeat urine, sputum and blood cultures Will de-escalate based on cultures Diflucan Obtain Nephrology consult Free water supplementation 200 ml q.4 hours Replace Garcia catheter Get PICC line Lovenox on hold d/t low platelet count Tube feeds for nutritional support Monitor renal function Monitor electrolytes. Supplement as necessary. Monitor ins and outs SBT/KALYN Labs and imaging reviewed. Rest of plan as noted below. Plan: s/p intubation on mechanical ventilator Vent settings; respiratory rate of 18, tidal volume 400, PEEP of 5, FiO2 at 30%. Titrate FIO2 to keep O2 saturation above 92%. VAP bundle Pressors for hemodynamic support. Titrate to keep MAP above 65 mmHg/SBP above 90 mmHg. Cardiology recommendations appreciated Continue bronchodilators. Continue steroids F/u cultures. Monitor renal function. Monitor electrolytes. Supplement as necessary. Monitor ins and outs Nutritional support. Tube feeds Accu-Cheks, ISS GI/DVT prophylaxis. Condition: Critical Prognosis: Poor given multiple comorbidities. Rest of plan per hospitalist and other consultants. A total of 35 minutes of critical care time was spent reviewing the patient record, examining the patient, making a diagnostic and therapeutic plan, discussing this plan with the medical personnel, following up on diagnostic studies and following the patient for clinical stability excluding any and all procedures. At least 50% of this time was spent in direct, [id number] contact. Thank you RAFA Rico for allowing me to participate in this patient's care. Further recommendations will depend on patient's clinical course. Please do not hesitate to contact me if you have any questions or concerns. This medical document was created using an electronic medical record system with [employer] dictation system. Although this document has been carefully reviewed, there may still be some phonetic and typographical errors. These areas are purely typographical due to imperfections of the software programs, and do not reflect any compromise in the patient's medical care. Dietary Evaluation Review Comments: 1. Pt's current feeding Glucerna 30ml/hr (43g pro, 864 kcal) x 24 hr will support 79% Pro and 87% kcal, if kidney failure is considered. 2. Pt's protein requirement is 134g if his kidney function improves while still on vent. 3. CCHO-60 diet if no renal failure when Pt is off vent and passing speech eval. 4. CCHO-60 with renal specific 50 gprotein restriction when pt is off vent passing speech eval and has KD. 5. CCHO-60 Renal Standard if pt is off vent with renal failure and on dialysis and pass speech eval. Expected Outcomes/Goals: controlled glucose level, minimized nephrotic syndrome. gradual wt loss. Plan discussed with: Other (MALICK Lizarraga) Critical Care Time(min): 35 RYAN ROMERO MD Jun 19, 2024 21:11
[2024-06-20] VITALS (59 sets, daily range): BP systolic 44–153; BP diastolic 23–127; PULSE 64–115; RESP 14–32; TEMP 97.9–99; O2SAT 37–100
[2024-06-20 04:28] LABS: Hematocrit 42.5 % (41.0-53.0); Hemoglobin 13.9 g/dL (13.5-17.5); Mean Corpuscular Hemoglobin 31.3 pg (28.0-32.0); Mean Corpuscular Hgb Conc. 32.8 g/dL (32.0-36.0); Mean Corpuscular Volume 95.6 fL (80.0-100.0); Platelet Count (auto) 72 10^3/uL (140-450); Red Blood Cells 4.44 10^6/uL (4.5-5.90); Red Cell Distribution Width 17.5 % (11.8-14.3)
[2024-06-20 04:48] LABS: Potassium 4.4 mmol/L (3.5-5.1); Sodium 145 mmol/L (136-145)
[2024-06-20 04:49] LABS: Anion Gap 11 (5-15); Carbon Dioxide 26 mmol/L (20-31)
[2024-06-20 04:54] LABS: BUN/Creatinine Ratio 28.9 (10.0-20.0); Blood Urea Nitrogen 71 mg/dL (9-23); Chloride 108 mmol/L (98-107); Glucose 244 mg/dL (74-106)
[2024-06-20 04:58] LABS: Basophils % (manual) 0 (0.0-2.0); Blast Cells 0; Eosinophils % (manual) 0 (0-7); Metamyelocytes % 0; Myelocytes % 0; Promyelocytes % 0; Reactive Lymphocytes 0
--- NOTE | 2024-06-20 05:21 | DVH ---
EXAM: XR Chest, 1 View CLINICAL INDICATION: pna TECHNIQUE: Frontal view of the chest. COMPARISON: XY CHEST PORTABLE on DOS: 06/19/24, XY CHEST PORTABLE on DOS: 06/18/24, XY CHEST PORTABLE on DOS: 06/17/24, XY CHEST XRAY 1 VIEW on DOS: 06/17/24, XY CHEST PORTABLE on DOS: 06/15/24 FINDINGS: LUNGS AND PLEURAL SPACES: Bibasilar atelectasis or pneumonia. HEART: Cardiomegaly with mild congestion. MEDIASTINUM: Unremarkable. Normal mediastinal contour. BONES/JOINTS: Unremarkable. No acute fracture. TUBES, LINES AND DEVICES: The endotracheal tube (ETT) is in satisfactory position. Enteric tube ti p cannot be seen but is below the diaphragm. Right internal jugular central venous catheter tip in t he superior vena cava. OTHER FINDINGS: . None. . .. IMPRESSION: 1. Bibasilar atelectasis or pneumonia. 2. Cardiomegaly with mild congestion.
[2024-06-20 06:08] LABS: Band Neutrophils % (manual) 7; Lymphocytes % (manual) 13 (10.0-50.0); Monocytes % (manual) 7 (0-12)
[2024-06-20 06:09] LABS: Base Excess -7.4 mmol/L (-2.0-3.0)
[2024-06-20 06:09] LABS: Platelet Estimate Decreased
[2024-06-20] MEDS: VASOPRESSIN 20 UNITS in SODIUM CHL 0.9% 99 ML IV SCH (06:47)
[2024-06-20] MEDS: SODIUM BICARB 8.4% 50Meq/50ml SYR Vial IV ONE ×3 (06:47→10:50)
[2024-06-20] MEDS: SODIUM CHLORIDE 0.9% 1,000 ML IV ONE (07:30)
[2024-06-20] MEDS: NOREPINEPHRINE BITARTRATE 32 MG in SODIUM CHL 0.9% 218 ML IV SCH (07:45)
[2024-06-20] MEDS: PHENYLEPHRINE INJ 80 MG in SODIUM CHL 0.9% 242 ML IV SCH (07:45)
--- NOTE | 2024-06-20 08:06 | DVH ---
ULTRASOUND ABDOMEN limited, 4 QUADRANTS INDICATION: FLUID IN ABDOMEN Evaluate for ascites. TECHNIQUE: The four quadrants of the abdomen were scanned in ibarra-scale to assess for the presence of ascites. N o solid organ assessment was performed. FINDINGS/IMPRESSIONS: Trace ascites in the left upper quadrant.
[2024-06-20] MEDS: SODIUM CHLORIDE 0.9% 500 ML IV ONE (08:15)
[2024-06-20] MEDS: HEPARIN SODIUM (PORCINE) 5000 UNITS/ML 1ML VIAL IV ONE (09:00)
[2024-06-20] MEDS: HEPARIN SODIUM (PORCINE) 5000 UNITS/ML 1ML VIAL ONE (09:00)
[2024-06-20] MEDS: HEPARIN DRIP/D5W 100UNITS/ML 250 ML IV SCH (09:00)
[2024-06-20] MEDS: HEPARIN DRIP/D5W 100UNITS/ML 250 ML IV ONE (09:01)
--- NOTE | 2024-06-20 10:20 | DVHPN2 ---
Subjective Patient chemically sedated Reviewed: Care Plan, H&P, Labs, Medications, Previous Orders, Radiology, Other (Consultations) Changes from previous H/P or p: No Changes General: Per HPI Objective Vitals Vital Signs Date Time Temp Pulse Resp B/P (MAP) Pulse Ox O2 Delivery O2 Flow Rate FiO2 06/20/24 09:45 71 21 100 06/20/24 06:45 99.0 71 210.2 06/20/24 05:56 Mechanical Ventilator+ Intake/Output Intake and Output 06/20/24 07:00 Intake Total 6497.750 ml Output Total 600 ml Balance 5897.750 ml Intake Oral 800 ml IV Total 5347.750 ml Tube Feeding 350 ml Output Urine Total 600 ml # Bowel Movements 1 General Appearance: severe distress, Other (Chemically sedated and encephalopathic.) HEENT: Mucous membr. moist/pink, Other Lungs: Other Cardiovascular: Normal S1, Normal S2 Abdomen: Soft Genitourinary: Other Extremities: Normal pulses Neuro: Other Skin: Dry, Intact Psych/Mental Status: Other Medications Current Medications Medications Dose Ordered Sig/Mindy Route Start Time Stop Time Status Last Admin Dose Admin Albuterol 2.5 mg Q4HPRN PRN NEB 06/11/24 13:45 06/19/24 18:21 2.5 MG Ipratropium [place] 0.5 mg Q4HPRN PRN NEB 06/11/24 13:45 06/19/24 18:21 0.5 MG Sodium Chloride 10 ml Q8HR IV 06/11/24 14:00 06/20/24 05:58 10 ML Ondansetron HCl 4 mg Q4HP PRN IV 06/11/24 13:45 Docusate Sodium 100 mg BIDPRN PRN PO 06/11/24 13:45 Acetaminophen 650 mg Q6HP PRN PO 06/11/24 13:45 Nitroglycerin 0.4 mg Q5MINP PRN SL 06/11/24 16:00 Morphine Sulfate 2 mg Q30M PRN IV 06/11/24 16:00 Fentanyl Citrate 250 ml @ 2.5 mls/hr Q24H IV 06/11/24 16:15 06/19/24 21:07 20 MLS/HR Diagnostic Test (Pha) 1 strip ACHS 06/12/24 17:00 06/20/24 05:07 1 STRIP Insulin Human Regular ACHS SC 2/4/25 17:00 06/20/24 05:09 4 UNITS Dextrose 50 ml UD PRN IV 06/12/24 13:30 06/18/24 06:37 50 ML Midazolam HCl 50 ml @ 1 mls/hr Q24H IV 06/13/24 06:45 06/15/24 08:12 1 MLS/HR Propofol 100 ml @ 2.727 mls/ hr Q24H IV 06/13/24 08:15 06/18/24 21:00 5.454 MLS/HR Lorazepam 1 mg Q5MINP PRN IV 06/13/24 10:45 Hydralazine HCl 10 mg Q4HP PRN IV 06/15/24 11:15 06/15/24 11:22 10 MG Nafcillin Sodium 2 gm/Sodium Chloride 100 ml @ 100 mls/hr Q4H IV 06/15/24 12:00 06/20/24 04:16 100 MLS/HR Dexmedetomidine HCl 400 mcg/ Dextrose 100 ml @ 1.136 mls/ hr Q24H IV 06/16/24 12:15 06/16/24 12:28 1.136 MLS/HR Pantoprazole Sodium 40 mg DAILY IV 06/19/24 10:00 06/19/24 10:31 40 MG Insulin Glargine 10 units DAILY@1000 SC 06/19/24 10:00 06/19/24 12:27 10 UNITS Dextrose 1,000 ml @ 150 mls/hr Q6H40M IV 06/19/24 09:45 06/20/24 01:21 150 MLS/HR Cefepime HCl 50 ml @ 12.5 mls/hr Q12H IV 06/19/24 14:00 06/20/24 02:13 12.5 MLS/HR Hydrocortisone Sodium Succinate 100 mg Q12HR IV 06/19/24 10:00 06/19/24 21:24 100 MG Fluconazole 100 ml @ 100 mls/hr 1300,1400 IV 06/19/24 13:00 06/19/24 15:14 100 MLS/HR Doxycycline Hyclate 100 ml @ 50 mls/hr Q12H IV 06/19/24 14:00 06/20/24 00:35 50 MLS/HR Vasopressin 20 units/Sodium Chloride 100 ml @ 9 mls/hr Q11H7M IV 06/20/24 06:45 06/20/24 06:47 9 MLS/HR Phenylephrine HCl 80 mg/Sodium Chloride 250 ml @ 7.5 mls/hr Q24H IV 06/20/24 07:30 Norepinephrine Bitartrate 32 mg/ Sodium Chloride 250 ml @ 0.938 mls/ hr Q24H IV 06/20/24 07:30 Epinephrine HCl 250 ml @ 7.5 mls/hr Q24H IV 06/20/24 08:15 Heparin Sodium/ Dextrose 250 ml @ 10 mls/hr Q24H IV 06/20/24 09:15 Laboratory Results Laboratory Tests 06/20/24 03:00 Chemistry Test 06/19/24 10:35 06/20/24 03:00 Calcium Level 7.5 mg/dL (8.7-10.4) L 7.0 mg/dL (8.7-10.4) L Magnesium Level 2.6 mg/dL (1.6-2.6) Coagulation Test 06/19/24 17:40 Prothrombin Time 11.6 sec (9.3-11.8) Prothrombin Time INR 1.11 (0.9-1.15) Activated Partial Thromboplast Time 42.4 SEC (24.5-34.5) H Urinalysis Test 06/19/24 06:25 Urine Color Light-orange (Yellow) Urine Clarity Turbid (Clear) H Urine pH 6.0 (5.0-9.0) Urine Specific [place] 1.016 (1.001-1.035) Urine Protein 1+ (Negative) H Urine Ketones Negative (Negative) Urine Blood 3+ /uL (Negative) H Urine Nitrite Negative (Negative) Urine Bilirubin Negative (Negative) Urine Urobilinogen 2 mg/dL (Negative) H Urine Leukocyte Esterase 3+ /uL (Negative) Urine RBC 117 /hpf (0 - 3) Urine Microscopic WBC 231 /HPF (0-3) H Urine Squamous Epithelial Cells Few /hpf (<5) Urine Bacteria None seen /hpf (None Seen) Urine Hyaline Casts Few /lpf (0 - 2) Urine Yeast (Budding) Few /hpf (None Seen) Urine Sperm Present /hpf (None Seen) Urine Creatinine Pending Urine Protein/Creatinine Ratio Pending Urine Sodium Pending Urine Glucose 4+ mg/dL (Normal) H Urine Total Protein Pending Blood Gas Results Test 06/20/24 06:02 Arterial Blood pH 7.287 (7.350-7.450) FiO2 % 30.0 Microbiology Microbiology Date/Time Source Procedure Growth Status 06/19/24 13:00 Sputum Gram Stain Pending Resulted 06/19/24 13:00 Sputum Respiratory Culture - Preliminary Resulted 06/19/24 06:25 Urine - Catheterized Urine Culture - Preliminary Resulted 06/14/24 06:00 Nose MRSA Screen - Final Complete 06/12/24 11:30 Blood Blood Culture - Final NO GROWTH AFTER 5 DAYS OF INCUBATION. Complete Labs and/or images reviewed: Labs reviewed by me, Image(s) reviewed by me Assessment/Plan Assessment/Plan Impression: -acute on chronic hypoxic and hypercarbic respiratory failure -COPD with exacerbation -recent history of Staphylococcus aureus pneumonia -obesity -thrombocytopenia -atrial fibrillation -obesity -acute kidney injury, probable vasomotor nephropathy -acute on chronic systolic and diastolic heart failure Plan: Events: Patient had worsening shock overnight. Currently on three different vasopressors. Patient was troponins are elevated at 980. Twelve lead ECG with ST depression in one and aVL. Long discussion made with the patient's family regarding worsening condition. Unsuccessful attempt to place arterial line given for vascular circulation. At this time they are wishing for patient to be DNR with continued care. -continue D5W -IV sodium bicarbonate push -NPO status -Continue vasopressor therapy -start heparin drip after bolus of 4000 units -nephrology consultation -continue nafcillin -pulmonology consultation: Recommendations reviewed. -cardiology consultation: Recommendations reviewed Critical care time spent with patient discussing and formulating plan of care: 90 minutes. This does not include time spent performing procedures. This medical document was created using an electronic medical record system with [employer] dictation system. Although this document has been carefully reviewed, there may still be some phonetic and typographical errors. These areas are purely typographical due to imperfections of the software programs, and do not reflect any compromise in the patient's medical care. Plan discussed with: Patient, Other (RN, granddaughter) My Orders Orders - YOLI KAY [employer] REP Procedure Category Date Status Time Abg W/ Co-Ox RT 06/20/24 Logged 05:52 Erythrocyte LAB 06/20/24 Logged Sedimentation Rate 08:10 C-Reactive Protein LAB 06/20/24 Logged 08:10 Epinephrine Hcl PHA 06/20/24 In Process 08:15 Lactic Acid W/ Reflex LAB 06/20/24 Logged Order 08:10 Troponin-I Hs LAB 06/20/24 Logged 08:37 Troponin-I Hs LAB 06/20/24 Logged 09:37 Troponin-I Hs LAB 06/20/24 Logged 11:37 Stat Ptt 6 Hr After CARLOS 06/20/24 In Process Heparin In 08:58 Platelet Monitoring CARLOS 06/20/24 In Process 09:14 Heparin Per CARLOS 06/20/24 In Process Standardized Proce 09:14 Discontinue All Im CARLOS 06/20/24 In Process Injections 09:14 Heparin Drip/D5w PHA 06/20/24 In Process 100units/Ml 09:15 Stat Ekg For Chest CARLOS 06/20/24 In Process Pain 09:14 Date of Service: Jun 20, 2024 Billing Provider: YOLI KAY NP Common Visit Codes: 87281-[id number] CARE 30-74 MIN, [id number] CARE-EACH +30MIN YOLI KAY NP Jun 20, 2024 10:20
--- NOTE | 2024-06-20 10:30 | DVHPN2 ---
Progress Note - Dictate Date Seen: Jun 20, 2024 Medical Necessity Reason Pt with a Central, PICC or Fol: Yes The following are medically ne: Garcia Catheter Reason for garcia catheter: Strict I&O Subjective Mr. Jeffry Cummins is a 79 years old right-handed gentleman with a history of hypertension, coronary artery disease, heart attack, COPD, he came to the [facility] on 06/11/2024 with a chief company of shortness of breath for 2 hours. The patient was intubated on 06/11/2024 in the emergency room. I saw him on 05/29/2024 for altered mental status He had seizure-like activity in the ER on 06/13/2024 I have seen and examined the patient, I have discussed with his nurse, and other medical staff, the case was discussed with Nolan He was not doing well today, eyes are open, he moves the head and arms from times time, he was not respond to verbal stimuli, his blood pressure is very low He was elevated troponin one high sensitivity, and is on heparin drip Propofol 10 mcg/minutes, fentanyl 50 mcg/hour, Levo 30 mcg/minute, Neosyn 180mcg/min, vasopressin 0.03 u. FiO2: 100% Urinalysis, 06/12/2024: WBC: 1, urine leukocyte esterase: Negative ABG, 06/13/2024, pCO2: 66.3, HCO3: 31.5, 06/20/2024: Metabolic acidosis WBC/HB/PLT/MCV, 05/25/2024: 17.9/14.4/211/93.1, 05/29/2024: 10.8/13.9/190/91.6, 06/03/2024: 21.3/316/178/90.7, 06/12/2024: 0.8/11.8/101/91.2, 06/13/2024: 7.3/12.4/36/91.6 BUN/CR, 05/29/2024: 28/0.78, 06/28/2024, 39/1.29 HGB A1c, 05/23/24: 6.5 Troponin one high sensitivity, 06/20/2019 5:980 TBI/AST/ALT/AP, 06/12/2024: 1.7/40/40/69 TG/HDL/LDL/HDL, 05/23/2024: 118/112/48/49 TSH, 05/23/2024: 0.71 EEG, 06/13/2024: Mildly abnormal Chest X ray, 06/11/2024: ETT tip is at the karoline. Retraction by [address] head, 05/20/2024: 1. Global brain atrophy and chronic schema changes without evidence of acute intracranial process. 2. Punctate intra-axial and extra-axial calcifications may be due to remote history of TORCH infection. 3. Mild bilateral maxillary and ethmoid sinus disease. MR head, 06/13/2024: There is no acute intracranial process. vital signs Vital Sign Date Time Temp Pulse Resp B/P (MAP) Pulse Ox O2 Delivery O2 Flow Rate FiO2 06/20/24 09:45 71 21 100 06/20/24 06:45 99.0 71 210.2 06/20/24 05:56 Mechanical Ventilator+ Total Intake and Output 06/19/24 06/19/24 06/20/24 15:00 23:00 07:00 Intake Total 1477.500 ml 2626.875 ml 2393.375 ml Output Total 500 ml 100 ml Balance 1477.500 ml 2126.875 ml 2293.375 ml medications Current Medications Medications Dose Ordered Sig/Mindy Route Start Time Stop Time Status Last Admin Dose Admin Albuterol 2.5 mg Q4HPRN PRN NEB 06/11/24 13:45 06/19/24 18:21 2.5 MG Ipratropium [place] 0.5 mg Q4HPRN PRN NEB 06/11/24 13:45 06/19/24 18:21 0.5 MG Sodium Chloride 10 ml Q8HR IV 06/11/24 14:00 06/20/24 05:58 10 ML Ondansetron HCl 4 mg Q4HP PRN IV 06/11/24 13:45 Docusate Sodium 100 mg BIDPRN PRN PO 06/11/24 13:45 Acetaminophen 650 mg Q6HP PRN PO 06/11/24 13:45 Nitroglycerin 0.4 mg Q5MINP PRN SL 06/11/24 16:00 Morphine Sulfate 2 mg Q30M PRN IV 06/11/24 16:00 Fentanyl Citrate 250 ml @ 2.5 mls/hr Q24H IV 06/11/24 16:15 06/19/24 21:07 20 MLS/HR Diagnostic Test (Pha) 1 strip ACHS 06/12/24 17:00 06/20/24 05:07 1 STRIP Insulin Human Regular ACHS SC 06/12/24 17:00 06/20/24 05:09 4 UNITS Dextrose 50 ml UD PRN IV 06/12/24 13:30 06/18/24 06:37 50 ML Midazolam HCl 50 ml @ 1 mls/hr Q24H IV 06/13/24 06:45 06/15/24 08:12 1 MLS/HR Propofol 100 ml @ 2.727 mls/ hr Q24H IV 06/13/24 08:15 06/18/24 21:00 5.454 MLS/HR Lorazepam 1 mg Q5MINP PRN IV 06/13/24 10:45 Hydralazine HCl 10 mg Q4HP PRN IV 06/15/24 11:15 06/15/24 11:22 10 MG Nafcillin Sodium 2 gm/Sodium Chloride 100 ml @ 100 mls/hr Q4H IV 06/15/24 12:00 06/20/24 04:16 100 MLS/HR Dexmedetomidine HCl 400 mcg/ Dextrose 100 ml @ 1.136 mls/ hr Q24H IV 06/16/24 12:15 06/16/24 12:28 1.136 MLS/HR Pantoprazole Sodium 40 mg DAILY IV 06/19/24 10:00 06/19/24 10:31 40 MG Insulin Glargine 10 units DAILY@1000 SC 06/19/24 10:00 06/19/24 12:27 10 UNITS Dextrose 1,000 ml @ 150 mls/hr Q6H40M IV 06/19/24 09:45 06/20/24 01:21 150 MLS/HR Cefepime HCl 50 ml @ 12.5 mls/hr Q12H IV 06/19/24 14:00 06/20/24 02:13 12.5 MLS/HR Hydrocortisone Sodium Succinate 100 mg Q12HR IV 06/19/24 10:00 06/19/24 21:24 100 MG Fluconazole 100 ml @ 100 mls/hr 1300,1400 IV 06/19/24 13:00 06/19/24 15:14 100 MLS/HR Doxycycline Hyclate 100 ml @ 50 mls/hr Q12H IV 06/19/24 14:00 06/20/24 00:35 50 MLS/HR Vasopressin 20 units/Sodium Chloride 100 ml @ 9 mls/hr Q11H7M IV 06/20/24 06:45 06/20/24 06:47 9 MLS/HR Phenylephrine HCl 80 mg/Sodium Chloride 250 ml @ 7.5 mls/hr Q24H IV 06/20/24 07:30 Norepinephrine Bitartrate 32 mg/ Sodium Chloride 250 ml @ 0.938 mls/ hr Q24H IV 06/20/24 07:30 Epinephrine HCl 250 ml @ 7.5 mls/hr Q24H IV 06/20/24 08:15 Heparin Sodium/ Dextrose 250 ml @ 10 mls/hr Q24H IV 06/20/24 09:15 objective The patient is well-nourished and well-developed with no distress. The patient is intubated MENTAL STATUS: Subjective CRANIAL NERVES: Pupils are equal, round and nonreactive, very small. There are corneal reflexes and doll's eyes phenomenon. No signs of facial weakness. There are gagging or coughing reflexes SENSATION: Responses to pain stimuli. MOTOR: Normal tone in the upper and lower extremity. Normal muscle bulk. No fasciculations. Moves the arms REFLEXES: Deep tendon reflexes are symmetrical. No pathological reflexes. CEREBELLAR/COORDINATION: Deferred GAIT/STATION: deferred. laboratory and microbiology Laboratory Tests 06/20/24 03:00 Test 06/20/24 03:00 Range/Units Serum Glucose 244 H 74-106 mg/dL Problem List Altered mental status/Coma Hypoxic encephalopathy Metabolic encephalopathy Toxic encephalopathy ? Status epileptics ? Vegetative status Acute heart attack Tension/ Shock New onset seizure activity ? Acute symptomatic seizure ? 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 Although this document has been carefully reviewed, there may still be some phonetic and typographical errors. These areas are purely typographical due to imperfections of the software programs, and do not reflect any compromise in the patient's medical carecercosis Acute on chronic respiratory failure Pneumonia Prognosis Guarded Dietary Evaluation Review Comments: 1. Pt's current feeding Glucerna 30ml/hr (43g pro, 864 kcal) x 24 hr will support 79% Pro and 87% kcal, if kidney failure is considered. 2. Pt's protein requirement is 134g if his kidney function improves while still on vent. 3. CCHO-60 diet if no renal failure when Pt is off vent and passing speech eval. 4. CCHO-60 with renal specific 50 gprotein restriction when pt is off vent passing speech eval and has KD. 5. CCHO-60 Renal Standard if pt is off vent with renal failure and on dialysis and pass speech eval. Expected Outcomes/Goals: controlled glucose level, minimized nephrotic syndrome. gradual wt loss. Plan discussed with: Other Critical Care Time(min): 35 CALEB NORMAN MD Jun 20, 2024 10:30
[2024-06-20] MEDS: EPINEPHrine HCL 250 ML IV SCH (10:38)
--- NOTE | 2024-06-20 10:57 | DVHPN2 ---
Progress Note Date Seen: Jun 20, 2024 Medical Necessity Reason Pt with a Central, PICC or Fol: Yes The following are medically ne: Garcia Catheter Reason for garcia catheter: Strict I&O Subjective Review of Systems: RESPIRATORY:Abnormal Other Systems: Patient seen and examined by myself today in follow-up, patient remained intubated on ventilator Objective vital signs Vital Sign Date Time Temp Pulse Resp B/P (MAP) Pulse Ox O2 Delivery O2 Flow Rate FiO2 06/20/24 10:38 56/31 06/20/24 09:45 71 21 100 06/20/24 08:00 76 Mechanical Ventilator+ 06/20/24 06:45 99.0 210.2 Total Intake and Output 06/19/24 06/19/24 06/20/24 15:00 23:00 07:00 Intake Total 1477.500 ml 2626.875 ml 2393.375 ml Output Total 500 ml 100 ml Balance 1477.500 ml 2126.875 ml 2293.375 ml medications Current Medications Medications Dose Ordered Sig/Mindy Route Start Time Stop Time Status Last Admin Dose Admin Albuterol 2.5 mg Q4HPRN PRN NEB 06/11/24 13:45 06/19/24 18:21 2.5 MG Ipratropium [place] 0.5 mg Q4HPRN PRN NEB 06/11/24 13:45 06/19/24 18:21 0.5 MG Sodium Chloride 10 ml Q8HR IV 06/11/24 14:00 06/20/24 05:58 10 ML Ondansetron HCl 4 mg Q4HP PRN IV 06/11/24 13:45 Docusate Sodium 100 mg BIDPRN PRN PO 06/11/24 13:45 Acetaminophen 650 mg Q6HP PRN PO 06/11/24 13:45 Nitroglycerin 0.4 mg Q5MINP PRN SL 06/11/24 16:00 Morphine Sulfate 2 mg Q30M PRN IV 06/11/24 16:00 Fentanyl Citrate 250 ml @ 2.5 mls/hr Q24H IV 06/11/24 16:15 06/19/24 21:07 20 MLS/HR Diagnostic Test (Pha) 1 strip ACHS 06/12/24 17:00 06/20/24 05:07 1 STRIP Insulin Human Regular ACHS SC 06/12/24 17:00 06/20/24 05:09 4 UNITS Dextrose 50 ml UD PRN IV 06/12/24 13:30 06/18/24 06:37 50 ML Midazolam HCl 50 ml @ 1 mls/hr Q24H IV 06/13/24 06:45 06/15/24 08:12 1 MLS/HR Propofol 100 ml @ 2.727 mls/ hr Q24H IV 06/13/24 08:15 06/18/24 21:00 5.454 MLS/HR Lorazepam 1 mg Q5MINP PRN IV 06/13/24 10:45 Hydralazine HCl 10 mg Q4HP PRN IV 06/15/24 11:15 06/15/24 11:22 10 MG Nafcillin Sodium 2 gm/Sodium Chloride 100 ml @ 100 mls/hr Q4H IV 06/15/24 12:00 06/20/24 10:51 100 MLS/HR Dexmedetomidine HCl 400 mcg/ Dextrose 100 ml @ 1.136 mls/ hr Q24H IV 06/16/24 12:15 06/16/24 12:28 1.136 MLS/HR Pantoprazole Sodium 40 mg DAILY IV 06/19/24 10:00 06/19/24 10:31 40 MG Insulin Glargine 10 units DAILY@1000 SC 06/19/24 10:00 06/19/24 12:27 10 UNITS Dextrose 1,000 ml @ 150 mls/hr Q6H40M IV 06/19/24 09:45 06/20/24 01:21 150 MLS/HR Cefepime HCl 50 ml @ 12.5 mls/hr Q12H IV 06/19/24 14:00 06/20/24 02:13 12.5 MLS/HR Hydrocortisone Sodium Succinate 100 mg Q12HR IV 06/19/24 10:00 06/20/24 10:51 100 MG Fluconazole 100 ml @ 100 mls/hr 1300,1400 IV 06/19/24 13:00 06/19/24 15:14 100 MLS/HR Doxycycline Hyclate 100 ml @ 50 mls/hr Q12H IV 06/19/24 14:00 06/20/24 00:35 50 MLS/HR Vasopressin 20 units/Sodium Chloride 100 ml @ 9 mls/hr Q11H7M IV 06/20/24 06:45 06/20/24 06:47 9 MLS/HR Phenylephrine HCl 80 mg/Sodium Chloride 250 ml @ 7.5 mls/hr Q24H IV 06/20/24 07:30 Norepinephrine Bitartrate 32 mg/ Sodium Chloride 250 ml @ 0.938 mls/ hr Q24H IV 06/20/24 07:30 Epinephrine HCl 250 ml @ 7.5 mls/hr Q24H IV 06/20/24 08:15 06/20/24 10:38 7.5 MLS/HR Heparin Sodium/ Dextrose 250 ml @ 10 mls/hr Q24H IV 06/20/24 09:15 laboratory and microbiology Laboratory Tests 06/20/24 03:00 Test 06/20/24 03:00 Range/Units Serum Glucose 244 H 74-106 mg/dL Microbiology Date/Time Source Procedure Growth Status 06/19/24 13:00 Sputum Gram Stain Pending Resulted 06/19/24 13:00 Sputum Respiratory Culture - Preliminary Resulted 06/19/24 10:35 Blood Blood Culture - Preliminary NO GROWTH AFTER 24 HOURS OF INCUBATION. Resulted 06/19/24 06:25 Urine - Catheterized Urine Culture - Preliminary Resulted 06/14/24 06:00 Nose MRSA Screen - Final Complete Problem List/Assessment/Plan Problem List/Assessment/Plan Acute kidney injury superimposed Chronic Kidney Disease secondary hemodynamic mediated Acute respiratory failure, patient intubated on ventilator Congestive heart failure, ejection fraction 45% COPD exacerbation Diabetes mellitus type 2 Hyperglycemia Hypernatremia due to insensible water loss Thrombocytopenia Recommendations Kidney function stable Chronic Kidney Disease stage 4 Increased urine output Hypernatremia appropriately improved Garcia catheter Strict I&Os Check urine electrolytes and urine protein excretion kidney ultrasound reported bilateral echogenic kidney no obstruction Change IV fluid to half NS at 100 cc/hour Free water 200 cc down NG tube q.6 hours Insulin sliding scale Match I&Os We will continue to follow Plan discussed with: Other (Nurse) My Orders My Orders Orders - LUTHER BHAT MD Procedure Category Date Status Time Communication Order ORDERS 06/19/24 Transmitted 20:09 Dietary Evaluation Review Comments: 1. Pt's current feeding Glucerna 30ml/hr (43g pro, 864 kcal) x 24 hr will support 79% Pro and 87% kcal, if kidney failure is considered. 2. Pt's protein requirement is 134g if his kidney function improves while still on vent. 3. CCHO-60 diet if no renal failure when Pt is off vent and passing speech eval. 4. CCHO-60 with renal specific 50 gprotein restriction when pt is off vent passing speech eval and has KD. 5. CCHO-60 Renal Standard if pt is off vent with renal failure and on dialysis and pass speech eval. Expected Outcomes/Goals: controlled glucose level, minimized nephrotic syndrome. gradual wt loss. LUTHER BHAT MD Jun 20, 2024 10:57
[2024-06-20] MEDS ORDERED: SOD CHL 0.45% 1,000 ML IV SCH ×2 (11:00)
[2024-06-20 13:33] LABS: Creatinine, Urine 32.18 mg/dL (30.0-125.0); Urine Protein/Creatinine Ratio 3.67
--- NOTE | 2024-06-20 13:59 | DVHDS2 ---
Discharge Summary Date of Admission Jun 11, 2024 at 15:53 Date of Discharge: Jun 20, 2024 Admitting Diagnosis Acute respiratory failure Labs/Diagnostic Data: Laboratory Results Test 06/20/24 11:41 06/20/24 11:24 06/20/24 06:02 06/20/24 03:00 POC Glucose 175 mg/dl (70-106) Ammonia 118 umol/L (11-32) Blood Gas Specimen Type Arterial Blood Gas Sample Site Right radial Blood Gas Patient Temperature 37.0 Arterial Blood Date Drawn [id number] Arterial Blood pH 7.287 (7.350-7.450) Arterial Blood Partial Pressure CO2 40.2 mmHg (35.0-48.0) Arterial Blood Partial Pressure O2 82.0 mmHg (83.0-108.0) Arterial Blood HCO3 18.8 mmol/L (21.0-28.0) Arterial Blood Oxygen Saturation 95.1 % (94.0-98.0) Arterial Blood Base Excess -7.4 mmol/L (-2.0-3.0) Arterial Blood Oxyhemoglobin 94.1 % (94.0-98.0) Arterial Blood Carboxyhemoglobin 1.0 % (0.5-1.5) Arterial Blood Methemoglobin 0.1 % (0.0-1.5) Jun Test Modified Blood Gas Total Hemoglobin 15.40 g/dL (13.5-17.5) Blood Gas Set Respiration Rate 18.0 Blood Gas Modality Vent - ac FiO2 % 30.0 Blood Gas Tidal Volume 400.0 Blood Gas PEEP or CPAP 5.0 White Blood Count 6.0 10^3/uL (4.4-10.8) Red Blood Count 4.44 10^6/uL (4.5-5.90) Hemoglobin 13.9 g/dL (13.5-17.5) Hematocrit 42.5 % (41.0-53.0) Mean Corpuscular Volume 95.6 fL (80.0-100.0) Mean Corpuscular Hemoglobin 31.3 pg (28.0-32.0) Mean Corpuscular Hemoglobin Concent 32.8 g/dL (32.0-36.0) Red Cell Distribution Width 17.5 % (11.8-14.3) Platelet Count 72 10^3/uL (140-450) Mean Platelet Volume 10.2 fL (6.9-10.8) Neutrophils (%) (Auto) % (37.0-80.0) Lymphocytes (%) (Auto) % (10.0-50.0) Monocytes (%) (Auto) % (0.0-12.0) Basophils (%) (Auto) % (0.0-2.0) Neutrophils # (Auto) 10 ^3/uL (1.6-8.6) Lymphocytes # (Auto) 10 ^3/uL (0.4-5.4) Monocytes # (Auto) 10 ^3/uL (0-1.3) Differential Total Cells Counted 100.0 (100) Neutrophils % (Manual) 73 (37.0-80.0) Band Neutrophils % (Manual) 7 Lymphocytes % (Manual) 13 (10.0-50.0) Monocytes % (Manual) 7 (0-12) Eosinophils % (Manual) 0 (0-7) Basophils % (Manual) 0 (0.0-2.0) Metamyelocytes % (manual) 0 Myelocytes % (Manual) 0 Promyelocytes % (Manual) 0 Blast Cells % (Manual) 0 Reactive Lymphocytes 0 Platelet Estimate Decreased Sodium Level 145 mmol/L (136-145) Potassium Level 4.4 mmol/L (3.5-5.1) Chloride Level 108 mmol/L (98-107) Carbon Dioxide Level 26 mmol/L (20-31) Anion Gap 11 (5-15) Blood Urea Nitrogen 71 mg/dL (9-23) Creatinine 2.46 mg/dL (0.700-1.30) Glomerular Filtration Rate Calc 26 mL/min (>90) BUN/Creatinine Ratio 28.9 (10.0-20.0) Serum Glucose 244 mg/dL (74-106) Calcium Level 7.0 mg/dL (8.7-10.4) Test 06/19/24 17:40 06/19/24 10:35 06/19/24 08:08 06/19/24 06:25 Prothrombin Time 11.6 sec (9.3-11.8) Prothrombin Time INR 1.11 (0.9-1.15) Activated Partial Thromboplast Time 42.4 SEC (24.5-34.5) Magnesium Level 2.6 mg/dL (1.6-2.6) Vitamin D 25-Hydroxy 28.4 ng/mL (30.0-100) Hepatitis B Surface Antigen Negative (Negative) Hepatitis C Antibody Negative (Negative) Blood Gas Spontaneous Rate 18 Urine Color Light-orange (Yellow) Urine Clarity Turbid (Clear) Urine pH 6.0 (5.0-9.0) Urine Specific [place] 1.016 (1.001-1.035) Urine Protein 1+ (Negative) Urine Ketones Negative (Negative) Urine Blood 3+ /uL (Negative) Urine Nitrite Negative (Negative) Urine Bilirubin Negative (Negative) Urine Urobilinogen 2 mg/dL (Negative) Urine Leukocyte Esterase 3+ /uL (Negative) Urine RBC 117 /hpf (0 - 3) Urine Microscopic WBC 231 /HPF (0-3) Urine Squamous Epithelial Cells Few /hpf (<5) Urine Bacteria None seen /hpf (None Seen) Urine Hyaline Casts Few /lpf (0 - 2) Urine Yeast (Budding) Few /hpf (None Seen) Urine Sperm Present /hpf (None Seen) Urine Creatinine 32.18 mg/dL (30.0-125.0) Urine Protein/Creatinine Ratio 3.67 Urine Glucose 4+ mg/dL (Normal) Urine Total Protein 118.0 mg/dL (1-14) Test 06/19/24 03:30 06/18/24 04:20 06/16/24 07:22 06/14/24 04:59 Eosinophils (%) (Auto) 0.0 % (0.0-7.0) Eosinophils # (Auto) 0 10 ^3/uL (0-0.8) Basophils # (Auto) 0 10 ^3/uL (0-0.2) Nucleated Red Blood Cells 0.3 % Phosphorus Level 5.5 mg/dL (2.4-5.1) Parathyroid Hormone (Intact) 753.0 pg/mL (18.4-80.1) Total Bilirubin 2.6 mg/dL (0.2-1.0) Aspartate Amino Transferase (AST) 66 U/L (13-40) Alanine Aminotransferase (ALT) 50 U/L (7-40) Alkaline Phosphatase 73 U/L (46-116) Total Protein 4.6 g/dL (5.7-8.2) Albumin 2.8 g/dL (3.2-4.8) Specimen Drawn By Vancomycin Level Trough 15.1 ug/mL (5-10) Test 06/13/24 05:49 06/12/24 15:17 06/12/24 05:50 06/11/24 14:05 Random Vancomycin Level 22.0 ug/mL (5-10) Influenza Type A Antigen Negative (Negative) Influenza Type B Antigen Negative (Negative) SARS-CoV-2 Antigen (Rapid) Negative (NEGATIVE) Blood Gas Critical Value Read Back Yes Blood Gas Notified Whom lisset Claire md Blood Gas Notified Time [id number] Blood Gas Notified By Nasir henry rrt B-Type Natriuretic Peptide 581.15 pg/mL (0-100) Test 06/11/24 11:20 Blood Gas Liter Flow 6.00 Other Laboratory Tests 06/20/24 03:00 Brief Hx & Hospital Course: History of Present Illness The patient is a 79-year-old male with past medical history of Coronary artery disease, COPD, [place], hyperlipidemia, and hypertension who presented to [facility] ED from [facility] with complaint of shortness of breaths. Patient's condition progressively get worse with complaint of chest pain, increased work of breathing, SOB on exertion, SOB at rest, getting worse that he was fully intubated. Laboratory data shows WBC 12.2, platelets 105, sodium 142, potassium 3.8, BUN 30, creatinine 1.01, GFR 76, glucose 166, troponin 158, BNP 581.16, blood pressure 109/58, pulse 75, temperature 98.1 F, O2 saturation 92% on ventilator. Please see medication orders section in the computer. On my assessment, patient is fully intubated, no diaphoresis, no vomiting, no fever, no chills. Patient was admitted for further evaluation and medical management. Course of hospitalization: Patient had improvement with respiratory status with FiO2 requirements remaining approximately 40%. Patient became hyponatremic, also with worsening acute kidney injury. Nephrology consultation was obtained. Patient had worsening shock over the past 24 hours, with no obvious etiology with respect to CBC, CMP, her ABG other than acidosis. When I assessed the patient this morning, the patient was found to have severe ST depressions on the bedside monitor, with troponins also being elevated at 980. Twelve lead ECG reveals acute ST changes in one and aVL. Attempts were made to place [facility] are line given the patient's vasopressor requirement. Long discussion was made with the patient's family regarding his acute clinical decline with noted worsening shock and mottling of the extremities as well as poor perfusion via Doppler assessment bedside. Patient was made full DNR, with the patient expiring, time of noted at 1:28 p.m. Consults/Reason for consult Nephrology: DICK Pulmonology: Acute hypoxia Neurology: ALOC, new onset seizure activity. Condition at Discharge: Poor Final Diagnosis/Problems List Acute respiratory failure NSTEMI Septic and cardiogenic shock Primary diagnosis -acute on chronic hypoxic and hypercarbic respiratory failure -COPD with exacerbation -recent history of Staphylococcus aureus pneumonia -obesity -thrombocytopenia -atrial fibrillation -obesity -acute kidney injury, probable vasomotor nephropathy -acute on chronic systolic and diastolic heart failure Discharge Disposition: at Hospital [facility] Discharge Statement: "Patient was advised to return to the ER or call 911 if any headaches, dizziness, shortness of breath, chest pain, abdominal pain, bleeding, fevers, or worsening of medical condition. Patient was counseled about treatment plan, medications, possible side effects, patientverbalized understanding. All questions were answered to the best of my ability. This discharge took greater then 30 minutes in planning, reviewing documentation, counseling the patient, and discussing with other team members." ASSESSMENT ASSESSMENT Assessment Date of Service: Jun 20, 2024 Billing Provider: YOLI KAY NP Common Visit Codes: 45836-CWY/OBS DISCH DAY >30min YOLI KAY NP Jun 20, 2024 13:59
--- NOTE | 2024-06-20 21:00 | DVHPN2 ---
Progress Note - Dictate Date Seen: Jun 20, 2024 Medical Necessity Reason Pt with a Central, PICC or Fol: Yes The following are medically ne: Garcia Catheter Reason for garcia catheter: Strict I&O Subjective Patient seen and examined at bedside. intubated on mechanical ventilator. Overnight events reviewed. vital signs Vital Sign Date Time Temp Pulse Resp B/P (MAP) Pulse Ox O2 Delivery O2 Flow Rate FiO2 06/20/24 12:46 41/25 06/20/24 12:45 97.9 14 208.2 06/20/24 12:30 95 39 06/20/24 12:00 100 06/20/24 12:00 Mechanical Ventilator+ Total Intake and Output 06/19/24 06/19/24 06/20/24 15:00 23:00 07:00 Intake Total 1692.500 ml 2715.625 ml 2393.375 ml Output Total 500 ml 100 ml Balance 1692.500 ml 2215.625 ml 2293.375 ml objective Gen.: Patient lying in bed in medical ICU. Intubated on mechanical ventilator Head: Normocephalic, atraumatic. Eyes: PERRLA. Ears: Normal external anatomy. Throat: Endotracheal tube and orogastric tube in place. Neck: Supple, trachea midline. Chest: Transmitted breath sounds bilaterally. Decreased air entry bilaterally. No wheezing. Bibasilar crackles. Cardiovascular: Positive S1, positive S2. Regular rate and rhythm. Abdomen: Positive bowel sounds in all 4 quadrants. Distended abdomen, nontender. : Garcia in place. Normal external genitalia. Rectal: Deferred. Skin: Warm, dry. Intact. Extremities: 2+ radial pulses bilaterally. No lower extremity edema. Neuro: Off sedation laboratory and microbiology Laboratory Tests 06/20/24 03:00 Test 06/20/24 03:00 Range/Units Serum Glucose 244 H 74-106 mg/dL Assessment/Plan Impression: Acute on chronic hypoxic respiratory failure On mechanical ventilator Acute exacerbation of COPD Obesity, BMI 34.3 Shock, hypovolemic versus sepsis Hemoptysis Elevated troponin Pulmonary vascular congestion Events: Remains on vent support Vent settings; respiratory rate of 18, tidal volume 400, PEEP of 5, FiO2 at 30%. ABG reviewed, notable for acidemia 2/2 metabolic acidosis RR increased to 24. Chest x-ray reviewed, demonstrates bibasilar atelectasis or pneumonia. Cardiomegaly with mild congestion. Abdominal ultrasound demonstrates trace ascites in the left upper quadrant. Obtain STAT ECG. Bloody secretions noted via ET tube. On multiple (4) pressors for hemodynamic support. On Levophed, Fito-Synephrine, vasopressin and epinephrine Titrate to keep MAP above 65 mmHg/SBP above 90 mmHg Increased pressor requirements Elevated troponin, trending up - possible OR. On heparin drip. Continue lactulose. Continue antibiotics - doxycycline and cefepime Continue antifungal medication Sputum cultures positive for GNR Blood cultures show no growth for 24 hours Follow up urine cultures Protonix BID. Accu-Cheks q.6 hours Episodes of hypoglycemia - D5W at 95 ml/hr. Continue bronchodilators PRN Hydrocortisone 100 mg IVP q.12 hours Monitor renal function - increased creatinine Monitor electrolytes. Supplement as necessary. Nephrology recs appreciated. Free water supplementation 200 ml q.4 hours Lovenox on hold d/t low platelet count Tube feeds for nutritional support Poor prognosis due to multiorgan failure Updated family at bedside. Labs and imaging reviewed. Rest of plan as noted below. Plan: s/p intubation on mechanical ventilator Vent settings; respiratory rate of 18 -->24, tidal volume 400, PEEP of 5, FiO2 at 30%. Titrate FIO2 to keep O2 saturation above 92%. VAP bundle On multiple pressors for hemodynamic support. Titrate to keep MAP above 65 mmHg/SBP above 90 mmHg. Cardiology recommendations appreciated Continue bronchodilators. Continue antibiotics F/u cultures. Monitor renal function. Monitor electrolytes. Supplement as necessary. Monitor ins and outs Nutritional support. Tube feeds Accu-Cheks, ISS Poor prognosis due to multiorgan failure GI/DVT prophylaxis. Condition: Critical Prognosis: Poor given multiple comorbidities. Rest of plan per hospitalist and other consultants. A total of 35 minutes of critical care time was spent reviewing the patient record, examining the patient, making a diagnostic and therapeutic plan, discussing this plan with the medical personnel, following up on diagnostic studies and following the patient for clinical stability excluding any and all procedures. At least 50% of this time was spent in direct, [id number] contact. Thank you RAFA Rico for allowing me to participate in this patient's care. Further recommendations will depend on patient's clinical course. Please do not hesitate to contact me if you have any questions or concerns. This medical document was created using an electronic medical record system with [employer] dictation system. Although this document has been carefully reviewed, there may still be some phonetic and typographical errors. These areas are purely typographical due to imperfections of the software programs, and do not reflect any compromise in the patient's medical care. Dietary Evaluation Review Comments: 1. Pt's current feeding Glucerna 30ml/hr (43g pro, 864 kcal) x 24 hr will support 79% Pro and 87% kcal, if kidney failure is considered. 2. Pt's protein requirement is 134g if his kidney function improves while still on vent. 3. CCHO-60 diet if no renal failure when Pt is off vent and passing speech eval. 4. CCHO-60 with renal specific 50 gprotein restriction when pt is off vent passing speech eval and has KD. 5. CCHO-60 Renal Standard if pt is off vent with renal failure and on dialysis and pass speech eval. Expected Outcomes/Goals: controlled glucose level, minimized nephrotic syndrome. gradual wt loss. Plan discussed with: Other (MALICK Lizarraga) Critical Care Time(min): 35 RYAN ROMERO MD Jun 20, 2024 21:00
[2024-06-20] MEDS ORDERED: PANTOPRAZOLE 40 MG/10 ML VIAL INJ IV SCH (22:00)
--- NOTE | 2024-06-21 10:47 | ECG ---
[facility] Test Date: 2024-06-20 Test Time: 08:42:47 Pat Name: PHYLICIA POST Department: Room: [address] [place] [address] A Gender: M [employer] Supervisor: MARIANA : 1945 Requested By: YOLI KAY Order Number: [id number] Reading MD: Liang Farrell Measurements Intervals Scott Rate: 103 P: 262 [place]: 136 QRS: -38 QRSD: 62 T: 118 QT: 348 QTc: 455 Interpretive Statements Unusual P axis and short [place], probable junctional tachycardia Left axis deviation Inferior-posterior infarct , age undetermined ST & T wave abnormality, consider lateral ischemia Electronically Signed On 06-21-2024 12:02:22 PST by Liang Farrell Please click the below link to view image of tracing.
== END 2024-06-20 13:28 | DRG 207 ==
LOC: EDUNIT# 11:10 → EDBD 11:10 → ER 11:10 → OVERFLOW 15:53 → ICU WEST 06-14 05:40
PROVIDERS: ADMIT Nurse Practitioner Acute Care; ATTEND Nurse Practitioner Acute Care
PROC: 5A1955Z Respiratory Ventilation, Greater than 96 Consecutive Hours (ICD-10-PCS; principal; 2024-06-11)
PROC: 02HV33Z Insertion of Infusion Device into Superior Vena Cava, Percutaneous Approach (ICD-10-PCS; 2024-06-11)
PROC: 0B9J8ZX Drainage of Left Lower Lung Lobe, Via Natural or Artificial Opening Endoscopic, Diagnostic (ICD-10-PCS; 2024-06-11)
PROC: 0BH17EZ Insertion of Endotracheal Airway into Trachea, Via Natural or Artificial Opening (ICD-10-PCS; 2024-06-11)
DX: J96.21 Acute and chronic respiratory failure with hypoxia (principal); I21.A1 Myocardial infarction type 2; G93.41 Metabolic encephalopathy; I50.43 Acute on chronic combined systolic (congestive) and diastolic (congestive) heart failure; N17.0 Acute kidney failure with tubular necrosis; R65.21 Severe sepsis with septic shock; J18.9 Pneumonia, unspecified organism; I13.0 Hypertensive heart and chronic kidney disease with heart failure and stage 1 through stage 4 chronic kidney disease, or unspecified chronic kidney disease; J44.1 Chronic obstructive pulmonary disease with (acute) exacerbation; G93.1 Anoxic brain damage, not elsewhere classified; J44.0 Chronic obstructive pulmonary disease with (acute) lower respiratory infection; E87.3 Alkalosis; E87.0 Hyperosmolality and hypernatremia; R04.2 Hemoptysis; E87.1 Hypo-osmolality and hyponatremia; N18.4 Chronic kidney disease, stage 4 (severe); J96.22 Acute and chronic respiratory failure with hypercapnia; R57.1 Hypovolemic shock; F41.9 Anxiety disorder, unspecified; Z66 Do not resuscitate; E11.65 Type 2 diabetes mellitus with hyperglycemia; E78.5 Hyperlipidemia, unspecified; E66.01 Morbid (severe) obesity due to excess calories; G47.33 Obstructive sleep apnea (adult) (pediatric); I25.10 Atherosclerotic heart disease of native coronary artery without angina pectoris; G40.909 Epilepsy, unspecified, not intractable, without status epilepticus; I48.91 Unspecified atrial fibrillation; D69.6 Thrombocytopenia, unspecified; E11.649 Type 2 diabetes mellitus with hypoglycemia without coma; R57.0 Cardiogenic shock; E11.22 Type 2 diabetes mellitus with diabetic chronic kidney disease; Z68.34 Body mass index [BMI] 34.0-34.9, adult; N40.0 Benign prostatic hyperplasia without lower urinary tract symptoms; Z79.84 Long term (current) use of oral hypoglycemic drugs; Z87.891 Personal history of nicotine dependence; Z98.61 Coronary angioplasty status; I25.2 Old myocardial infarction; Z82.49 Family history of ischemic heart disease and other diseases of the circulatory system; Z83.3 Family history of diabetes mellitus; Z88.8 Allergy status to other drugs, medicaments and biological substances
CPT/HCPCS: 36415; 36556; 36600; 70450; 70551; 71045; 76705; 76775; 80048; 80053; 80202; 81001; 82140; 82306; 82565; 82570; 82805; 82962; 83735; 83880; 83970; 84100; 84156; 84300; 84484; 85007; 85025; 85027; 85610; 85730; 86803; 87040; 87070; 87077; 87081; 87086; 87186; 87205; 87340; 87426; 87804; 93005; 94002; 94003; 94640; 95819; 99291; 99292; G0378; J0171; J1450; J1815; J2470; J2704; J3480; J3490; J7060